=== PATIENT | male | born 1940 | race Caucasian/White ===

== ENCOUNTER 2023-12-05 17:32 | Observation (INO) | payer MEDICARE, OTHER, SELFPAY ==
--- NOTE | ~2023-12-05 | CT_ITS ---
EXAMINATION: CT HEAD WITHOUT CONTRAST CLINICAL INFORMATION: Stroke. COMPARISON: None available. TECHNIQUE: Contiguous axial imaging was performed from the skull base to vertex without intravenous administration of contrast. This CT examination was performed using dose optimization techniques as appropriate, variously including the following: *Automated exposure control. *Adjustment of mA and/or kV according to patient size (this includes techniques or standardized protocols for targeted exams where dose is matched to indication/reason for exam; i.e. extremities or head). *Use of iterative reconstruction technique. DLP: 703 mGy-cm FINDINGS: There is no evidence of acute intracranial hemorrhage or edematous territorial infarction. Loyola-white matter differentiation is preserved. 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 Scattered and partially confluent hypoattenuation in the periventricular and deep white matter are consistent with moderate microangiopathy. Proportional prominence of the ventricles and sulcal spaces without evidence of obstructive hydrocephalus. No abnormal mass effect or midline shift. No extra-axial fluid collections. Calcific atherosclerotic disease of the intracranial internal carotid and vertebral arteries. No hyperdense vessel sign. No acute soft tissue or osseous abnormalities. Mild mucosal thickening of the paranasal sinuses. Mild rightward nasal septal deviation. The mastoid air cells and middle ear cavities are clear. CT/CT head for stroke IMPRESSION: 1. No evidence of acute intracranial hemorrhage or edematous territorial infarction. 2. Moderate underlying microangiopathy and generalized cerebral volume loss. 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 This critical result was discussed with LUZ Shafer at 19:05 on 12/05/2023 and it was ascertained that the content and urgency of the report was understood at the time of direct communication.
--- NOTE | ~2023-12-05 | XR_ITS ---
EXAMINATION: XR CHEST CLINICAL INFORMATION: Altered mental status COMPARISON: None available. TECHNIQUE: Frontal view of the chest was obtained. FINDINGS: Heart is enlarged. No acute vascular congestion. There is elevation of the right hemidiaphragm and cannot exclude diaphragmatic hernia. Fibrotic changes seen in the bilateral lung parenchymal. No focal consolidations or pleural effusions. Coronary stent is present. XR/XR chest 1V IMPRESSION: Cardiomegaly. No acute process.
--- NOTE | ~2023-12-05 | CT_ITS ---
EXAMINATION: CT ANGIOGRAM HEAD CT ANGIOGRAM NECK CLINICAL INFORMATION: Unresponsive. Stroke. COMPARISON: CT head from 12/05/2023. TECHNIQUE: Initial noncontrast program director scouting imaging of the head and neck was performed. Comparison is made with noncontrast head CT from earlier today. Test bolus sequences followed by intravenous administration 70 mL of Omnipaque 350. Helical imaging was performed in the axial plane from the aortic arch to the skull vertex. Delayed postcontrast imaging of the head was also performed. The data was processed at the biomedical engineering technologist's workstation for generation of MIP sequences. Angled MIPs and volume rendered reformatted images were also generated at an offline 3D workstation. Stenoses are assessed in accordance with NASCET criteria unless otherwise indicated. This CT examination was performed using dose optimization techniques as appropriate, variously including the following: *Automated exposure control. *Adjustment of mA and/or kV according to patient size (this includes techniques or standardized protocols for targeted exams where dose is matched to indication/reason for exam; i.e. extremities or head). *Use of iterative reconstruction technique. DLP: 1456 mGy-cm FINDINGS: CT Head: There is no evidence of acute intracranial hemorrhage or edematous territorial infarction. Loyola-white matter differentiation is preserved. 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 Scattered and partially confluent hypoattenuation in the periventricular and deep white matter are consistent with moderate microangiopathy. Proportional prominence of the ventricles and sulcal spaces without evidence of obstructive hydrocephalus. No abnormal mass effect or midline shift. No extra-axial fluid collections. Calcific atherosclerotic disease of the intracranial internal carotid and vertebral arteries. No hyperdense vessel sign. No abnormal intracranial enhancement. No acute soft tissue or osseous abnormalities. Mild mucosal thickening of the paranasal sinuses. Moderate rightward nasal septal deviation. The mastoid air cells and middle ear cavities are clear. CT Neck: The thyroid gland and remaining cervical soft tissues are within normal limits. Straightening of the normal cervical lordosis. Mild degenerative anterolisthesis of C2 on C3. Advanced degenerative arthropathy of the atlantodental articulation. Advanced degenerative disc disease from C2-T1. Facet and uncovertebral joint arthropathy leads to osseous encroachment on the neural foramina from C2-T2. CT Upper Chest: Mild centrilobular emphysema. The visualized lung apices and upper mediastinum are without additional significant abnormalities. Neck CTA: Aortic Arch: Normal contour and caliber with mild calcific atherosclerotic disease. Classic 3 vessel branching pattern of the aortic arch. Great Vessel Origins: No significant stenosis of the branch origins. Right Common Carotid Artery: No focal stenosis or occlusion. Cervical Right Internal Carotid Artery: Calcific atherosclerotic disease of the carotid bulb and proximal internal carotid artery causing less than 50% stenosis. Left Common Carotid Artery: No focal stenosis or occlusion. Cervical Left Internal Carotid Artery: Mixed fibrofatty and calcific atherosclerotic disease of the carotid bulb and proximal internal carotid artery causing 60% stenosis. Cervical Right Vertebral Artery: Dominant. Atherosclerotic disease causes moderate stenosis of the origin. No additional focal stenosis or occlusion. Cervical Left Vertebral Artery: Atherosclerotic disease causes mild stenosis at the origin. No additional focal stenosis or occlusion. Brain CTA: Intracranial Internal Carotid Arteries: Calcific atherosclerotic disease of the intracranial internal carotid arteries without occlusion or flow-limiting stenosis. Right Anterior Cerebral Artery: Normal A1 segment. Normal opacification of the distal DAVINA segments. Left Anterior Cerebral Artery: Normal A1 segment. Normal opacification of the distal DAVINA segments. Anterior Communicating Artery: Normal. Right Middle Cerebral Artery: Normal M1 segment of the MCA without focal stenosis or occlusion. Normal arborization of the distal segments. Left Middle Cerebral Artery: Normal M1 segment of the MCA without focal stenosis or occlusion. Normal arborization of the distal segments. Right Vertebral Artery: Normal V4 segment. Extradural origin of the posterior inferior cerebellar artery. Normal opacification of the proximal segments of the posterior inferior cerebellar artery. Left Vertebral Artery: The V4 segment largely terminates as the posterior inferior cerebellar artery. Basilar Artery: Normal without focal stenosis or occlusion. Normal appearance of the proximal superior cerebellar arteries. Right Posterior Cerebral Artery: Normal P1 segment. Normal opacification of the distal NET FINISHER segments. Left Posterior Cerebral Artery: Normal P1 segment. Normal opacification of the distal NET FINISHER segments. Normal opacification of the superior sagittal, straight, transverse, and sigmoid sinuses. CT/CT angio head neck stroke IMPRESSION: 1. No evidence of acute intracranial hemorrhage or edematous territorial infarction. Moderate underlying microangiopathy and generalized cerebral volume loss. 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 2. CTA of the head and neck without proximal occlusion. 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 No additional flow-limiting stenoses. 3. Advanced multilevel degenerative spondyloarthropathy of the cervical spine. This critical result was discussed with LUZ Shafer at 19:05 on 12/05/2023 and it was ascertained that the content and urgency of the report was understood at the time of direct communication.
[2023-12-05 17:40] VITALS: BP 140/80; PULSE 70; O2SAT 98
[2023-12-05 17:59] VITALS: BP 150/60; PULSE 56; RESP 16; O2SAT 94; BMI 19.8
[2023-12-05 18:10] LABS: Glucose, Whole Blood 114 mg/dL (60-115)
[2023-12-05 18:17] LABS: MANUAL DIFF FLAG NO
--- NOTE | 2023-12-05 18:25 | ECG_ITS ---
Test Reason : STROKE PROTOCOL Blood Pressure : / mmHG Vent. Rate : 085 BPM Atrial Rate : 085 BPM P-R Int : 160 ms QRS Dur : 096 ms QT Int : 398 ms P-R-T Axes : -13 -07 065 degrees QTc Int : 473 ms Sinus rhythm with occasional Premature ventricular complexes Minimal voltage criteria for LVH, may be normal variant ( Sokolow-Ray ) Nonspecific ST and T wave abnormality Prolonged QT Abnormal ECG No previous ECGs available Referred By: Minoo Ziegler Electronically Signed By:LOLA GUERRA
[2023-12-05 18:27] LABS: Basophils Percent Auto 0.7 % (0-2); Eosinophils Percent Auto 0.5 % (0-4); Hemoglobin 14.4 g/dl (14.0-18.0); Imm Gran Abs Auto 0.07 X10*3/uL (0.00-0.03); Imm Gran Pct Auto 1.3 % (0.0-0.4); Lymphocytes Absolute Auto 0.7 X10*3/uL (1.2-4.9); Lymphocytes Percent Auto 12.8 % (20-40); Mean Corpuscular Hemoglobin 33.5 pg (27.0-33.0); Mean Platelet Volume 9.7 fL (9.4-12.4); Monocytes Absolute Auto 0.6 X10*3/uL (0.1-1.2); Monocytes Percent Auto 11.5 % (2-11); Neutrophils Percent Auto 73.2 % (45-73); Platelet Count 198 X10*3/uL (160-400); Red Cell Distribution Width 12.9 % (11.0-16.0); White Blood Count 5.5 X10*3/uL (4.8-10.8)
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
[2023-12-05 18:46] LABS: Appearance Urine Clear; Color Urine Yellow; Glucose Urine UA Negative (Negative); Leukocyte Esterase Urine Trace (Negative); Nitrite Urine Positive (Negative); PH 6.5 (5.0-9.0); Specific Gravity - Urine 1.015 (1.005-1.025); UMIC TRIGGER UACC YES; Urine Blood Negative (Negative); Urine Ketones Trace mg/dL (Negative); Urine Protein 30 (1+) mg/dL (Neg-Trace)
[2023-12-05 18:47] LABS: Anion Gap 15 (12-20); Blood Urea Nitrogen 25 mg/dL (9-16); Carbon Dioxide 25 mmol/L (22-29); Chloride 101 mmol/L (96-108); Creatinine Clr Calc Pharmacy 42.4; Estimated Glomerular Filt Rate > 60; Ethanol < 10 mg/dL; Glucose Random 120 mg/dL (60-115); Sodium 137 mmol/L (135-145)
[2023-12-05 18:49] LABS: Salicylate < 5.0 mg/dL (15-30)
[2023-12-05 18:54] LABS: Amphetamine Screen Urine Not Detected (Not Detect); Barbiturates, Urine Not Detected (Not Detect); Benzodiazepines Screen Urine Not Detected (Not Detect); Buprenorphine Scr Not Detected (Not Detect); Cannabinoid Screen Urine Not Detected (Not Detect); Cocaine Screen Urine Not Detected (Not Detect); Fentanyl, urine Not Detected (Not Detect); Methadone Screen, Urine Not Detected (Not Detect); Opiate Screen Urine Not Detected (Not Detect); Oxycodone Screen Urine Not Detected (Not Detect); Phencyclidine Screen Urine Not Detected (Not Detect)
[2023-12-05 18:57] LABS: Bacteria Urine None Seen (None Seen); Hyaline Casts Urine 0-2 /LPF (0-2); RBC Urine 0-2 /HPF (0-2); Squamous Epithelial Cell Urine 0-2 /HPF (0-2); UACC Culture Trigger YES
[2023-12-05] MEDS: iohexoL 350 MG/ML 100 ML INFUS..BTL IV (18:57)
[2023-12-05] MEDS: LORazepam 2 MG/ML VIAL 1 MG IVPUSH (19:37)
[2023-12-05 19:41] LABS: MANUAL DIFF FLAG NO
[2023-12-05 19:45] LABS: Basophils Percent Auto 0.4 % (0-2); Eosinophils Percent Auto 0.8 % (0-4); Hematocrit 43.1 % (42.0-52.0); Hemoglobin 15.6 g/dl (14.0-18.0); Imm Gran Abs Auto 0.03 X10*3/uL (0.00-0.03); Imm Gran Pct Auto 0.6 % (0.0-0.4); Lymphocytes Absolute Auto 0.6 X10*3/uL (1.2-4.9); Lymphocytes Percent Auto 12.7 % (20-40); Mean Corpuscular HGB Conc 36.2 g/dl (31.0-36.0); Mean Corpuscular Hemoglobin 33.8 pg (27.0-33.0); Mean Corpuscular Volume 93.3 fL (80.0-98.0); Monocytes Absolute Auto 0.5 X10*3/uL (0.1-1.2); Monocytes Percent Auto 10.3 % (2-11); Neutrophils Absolute Auto 3.8 x10*3/uL (2.0-8.3); Neutrophils Percent Auto 75.2 % (45-73); Platelet Count 216 X10*3/uL (160-400); Red Blood Count 4.62 X10*6/uL (4.60-5.80)
[2023-12-05 19:55] LABS: INTERNATIONAL NORM RATIO 0.9 (0.9-1.1); Prothrombin Time 10.7 SEC (11.1-13.3)
[2023-12-05 19:58] LABS: Partial Thromboplastin Time 29.3 SEC (26.0-36.8)
[2023-12-05 19:59] LABS: Acetaminophen LAB < 3 mcg/mL (<30); Anion Gap 16 (12-20); Blood Urea Nitrogen 24 mg/dL (9-16); Calcium 9.3 mg/dL (8.4-10.2); Carbon Dioxide 26 mmol/L (22-29); Chloride 98 mmol/L (96-108); Cholesterol 141 mg/dL (<200); Creatinine Clr Calc Pharmacy 42.4; Estimated Glomerular Filt Rate > 60; Ethanol < 10 mg/dL; Glucose Random 118 mg/dL (60-115); HDL Cholesterol 70 mg/dL (>40); LDL Cholesterol Calculated 62 mg/dL (<100); Potassium 4.2 mmol/L (3.3-5.1); Sodium 136 mmol/L (135-145); Triglycerides 48 mg/dL (<150)
[2023-12-05 20:00] VITALS: BP 116/68; PULSE 56; RESP 15; TEMP 36.8; O2SAT 98
[2023-12-05 20:01] LABS: Stroke Lab Use COMPLETE
[2023-12-05 20:06] LABS: Ammonia 23 umol/L (13-55)
--- NOTE | 2023-12-05 20:44 | PM.IMHP ---
History of Present Illness Date of Service: 12/05/23 Chief Complaint: AMS This is a 83-year-old male with pertinent history of mood disorder, seizure disorder, hypertension, mixed hyperlipidemia, BPH who was sent to the emergency department from [facility] for evaluation of altered mentation. Patient is at [facility] for the last 2 days for suicidal and homicidal ideation. Patient was not responding to verbal stimulus and not answering questions and hence was sent to the ER. As per ER provider, patient was drowsy and unable to provide any information. Patient was completely altered and not following any commands. Patient was sent to CT scan and after returning had a questionable episode of seizure in the ER witnessed by ER provider. Was given IV Ativan for the seizure episode. At the time of my evaluation, patient does not know why he is at the hospital. He is oriented x2 and is able to answer questions and follow simple commands. No chest discomfort, palpitations, shortness of breath, abdominal pain. Review of Systems Review of Systems: Yes Unobtainable due to mental status [facility] Medical History BPH (benign prostatic hyperplasia) Mixed hyperlipidemia Hypertension Mood disorder Seizure disorder Pertinent family history: Not able to obtain Social History Advance Directives: No Advance Directives Information Provided: No Meds Allergies Allergy/AdvReac Type Severity Reaction Status Date / Time Unable to Assess Allergy Verified 12/05/23 17:59 Home Medications ?Medication ?Instructions ?Recorded ?Confirmed ?Last Taken ?Type amlodipine 10 mg tablet 10 mg PO DAILY 12/05/23 12/05/23 Unknown History aspirin 81 mg tablet,delayed 81 mg PO DAILY 12/05/23 12/05/23 Unknown History release atorvastatin 20 mg tablet 20 mg PO DAILY 12/05/23 12/05/23 Unknown History clopidogrel 75 mg tablet 75 mg PO DAILY 12/05/23 12/05/23 Unknown History docusate sodium 100 mg capsule 100 mg PO BEDTIME 12/05/23 12/05/23 Unknown History (Colace) escitalopram oxalate 5 mg tablet 5 mg PO DAILY 12/05/23 12/05/23 Unknown History (Lexapro) finasteride 5 mg tablet 5 mg PO DAILY 12/05/23 12/05/23 Unknown History levetiracetam 750 mg tablet 750 mg PO BID 12/05/23 12/05/23 Unknown History metoprolol succinate 25 mg 25 mg PO DAILY 12/05/23 12/05/23 Unknown History tablet,extended release 24 hr mirtazapine 15 mg tablet (Remeron) 7.5 mg PO BEDTIME 12/05/23 12/05/23 Unknown History polyethylene glycol 3350 17 17 g PO BEDTIME 12/05/23 12/05/23 Unknown History gram/dose oral powder (Miralax) tamsulosin 0.4 mg capsule 0.4 mg PO DAILY 12/05/23 12/05/23 Unknown History venlafaxine 37.5 mg tablet 37.5 mg PO DAILY 12/05/23 12/05/23 Unknown History Physical Exam Vital Signs and Narrative: Vital Signs: Last Vital Signs Temp 98.3 F 12/05/23 20:00 Pulse 56 12/05/23 20:00 Resp 15 12/05/23 20:00 BP 116/68 12/05/23 20:00 Pulse Ox 98 12/05/23 20:00 O2 Del Method Room Air 12/05/23 20:00 BMI result Body Mass Index 19.8 Middle-aged male lying in bed in no distress Neck supple, no JVD Regular rate and rhythm, S1-S2 heard Regular breath sounds bilaterally, no wheezing or crackles appreciated Abdomen soft nontender, no guarding, no rigidity Patient is awake, alert and oriented x2, answering questions and follows simple commands Psych: Lethargic No pedal edema Results Labs 12/05/23 19:35 12/05/23 19:35 Labs: Laboratory Results - last 24 hr 12/05/23 12/05/23 12/05/23 18:07 18:13 18:35 MCV 93.0 MCH 33.5 H MCHC 36.0 RDW 12.9 Plt Count 198 MPV 9.7 Immature Gran % (Auto) 1.3 H Neut % (Auto) 73.2 H Lymph % (Auto) 12.8 L [place] % (Auto) 11.5 H Eos % (Auto) 0.5 Baso % (Auto) 0.7 Lymph # (Auto) 0.7 L [place] # (Auto) 0.6 Eos # (Auto) 0.0 Baso # (Auto) 0.0 Abs Immat Gran (auto) 0.07 H Absolute Neuts (auto) 4.0 Absolute Nucleated RBC 0.000 Nucleated RBC % (auto) 0.0 PT INR APTT Anion Gap 15 Estim Creat Clear Calc 42.4 Estimated GFR > 60 POC Glucose 114 Random Glucose 120 H Lactic Acid Calcium 9.0 Ammonia Troponin I High Sens Triglycerides Cholesterol LDL Cholesterol, Calc HDL Cholesterol Urine Color Yellow Urine Appearance Clear Urine pH 6.5 Ur Specific [place] 1.015 Urine Protein 30 (1+) H Urine Glucose (UA) Negative Urine Ketones Trace Urine Blood Negative Urine Nitrite Positive H Ur Leukocyte Esterase Trace H Urine RBC 0-2 Urine WBC 6-10 H Ur Squamous Epith Cells 0-2 Urine Bacteria None Seen Hyaline Casts 0-2 Salicylates < 5.0 L Urine Opiates Screen Not Detected Ur Buprenorphine Scrn Not Detected Ur Oxycodone Screen Not Detected Urine Methadone Screen Not Detected Urine Fentanyl Screen Not Detected Acetaminophen Ur Barbiturates Screen Not Detected Ur Phencyclidine Scrn Not Detected Ur Amphetamines Screen Not Detected U Benzodiazepines Scrn Not Detected Urine Cocaine Screen Not Detected U Marijuana (THC) Screen Not Detected Ethyl Alcohol < 10 12/05/23 12/05/23 19:35 19:54 MCV 93.3 MCH 33.8 H MCHC 36.2 H RDW 13.0 Plt Count 216 MPV 10.0 Immature Gran % (Auto) 0.6 H Neut % (Auto) 75.2 H Lymph % (Auto) 12.7 L [place] % (Auto) 10.3 Eos % (Auto) 0.8 Baso % (Auto) 0.4 Lymph # (Auto) 0.6 L [place] # (Auto) 0.5 Eos # (Auto) 0.0 Baso # (Auto) 0.0 Abs Immat Gran (auto) 0.03 Absolute Neuts (auto) 3.8 Absolute Nucleated RBC 0.000 Nucleated RBC % (auto) 0.0 PT 10.7 L INR 0.9 APTT 29.3 Anion Gap 16 Estim Creat Clear Calc 42.4 Estimated GFR > 60 POC Glucose Random Glucose 118 H Lactic Acid 1.0 Calcium 9.3 Ammonia 23 Troponin I High Sens 17.0 Triglycerides 48 Cholesterol 141 LDL Cholesterol, Calc 62 HDL Cholesterol 70 Urine Color Urine Appearance Urine pH Ur Specific [place] Urine Protein Urine Glucose (UA) Urine Ketones Urine Blood Urine Nitrite Ur Leukocyte Esterase Urine RBC Urine WBC Ur Squamous Epith Cells Urine Bacteria Hyaline Casts Salicylates Urine Opiates Screen Ur Buprenorphine Scrn Ur Oxycodone Screen Urine Methadone Screen Urine Fentanyl Screen Acetaminophen < 3 Ur Barbiturates Screen Ur Phencyclidine Scrn Ur Amphetamines Screen U Benzodiazepines Scrn Urine Cocaine Screen U Marijuana (THC) Screen Ethyl Alcohol < 10 Imaging Radiologist's Impressions: Impressions Head CT 12/05/23 18:47 IMPRESSION: 1. No evidence of acute intracranial hemorrhage or edematous territorial infarction. 2. Moderate underlying microangiopathy and generalized cerebral volume loss. 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 This critical result was discussed with LUZ Shafer at 19:05 on 12/05/2023 and it was ascertained that the content and urgency of the report was understood at the time of direct communication. Head/Neck CTA 12/05/23 19:23 IMPRESSION: 1. No evidence of acute intracranial hemorrhage or edematous territorial infarction. Moderate underlying microangiopathy and generalized cerebral volume loss. 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 2. CTA of the head and neck without proximal occlusion. 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 No additional flow-limiting stenoses. 3. Advanced multilevel degenerative spondyloarthropathy of the cervical spine. This critical result was discussed with LUZ Shafer at 19:05 on 12/05/2023 and it was ascertained that the content and urgency of the report was understood at the time of direct communication. Assessment and Plan (1) Acute encephalopathy: Status: Acute Plan This is a 83-year-old male with pertinent history of mood disorder, seizure disorder, hypertension, mixed hyperlipidemia, BPH who was sent to the emergency department from [facility] for evaluation of altered mentation. #. Acute encephalopathy: Psych versus breakthrough seizure. Had a ?witnessed episode of seizure in the ER as per ER provider. Obtaining EEG and consulted Neurology #. SI/HI in a patient with mood disorder: Consulting psych. Continue home mood stabilizers. Consulted sitter #. Seizure disorder: Continue home antiepileptics #. Hypertension: Continue home mood stabilizers #. Mixed hyperlipidemia: On statin #. BPH: On finasteride and Flomax Med rec pending DVT prophylaxis: Lovenox Full code Quality Stroke Does the patient have a stroke diagnosis?: No VTE Prior VTE?: No VTE Risk Level:: Medical - moderate - high VTE Device Contraindication: Treatment Not Indicated VTE Drug Contraindication: N/A - Med Ordered
[2023-12-05] MEDS: Enoxaparin Sodium 40 MG/0.4 ML SYRINGE SUBCUT (21:21)
--- NOTE | 2023-12-05 21:34 | PHA.MEDREC ---
Addendum entered by Pradeep Nash [facility] 12/06/23 14:18: Reviewed by [facility] Addendum entered by Bart Staples 12/06/23 13:54: Received medication list from a facility for patient. There were some PRN medications I noticed were not on the list, I added Acetaminophen 325mg 2 tabs Q6H PRN Pain, Haloperidol 5mg tab one Q6H PRN Psychosis, Lactulose 20gm daily PRN Constipation, Lorazepam 2mg injection Q5M PRN Seizure Activity and Milk of Magnesia 30ml daily PRN Constipation. Addendum entered by Juan Corona 12/05/23 21:39: Med rec verified Original Note: Pharmacy Consult ? Medication Reconciliation Pharmacy has completed the medication reconciliation. Spoke to Katie from [place] [phone] to get list of medication. Utilized list given over the phone and claims to confirm med list.
[2023-12-05 22:00] VITALS: BP 109/60; PULSE 55; RESP 19; O2SAT 92
[2023-12-05 22:30] VITALS: BP 110/65; PULSE 52; RESP 17; TEMP 36.7; O2SAT 97
[2023-12-06] VITALS (7 sets, daily range): BP systolic 102–165; BP diastolic 55–88; PULSE 50–66; RESP 12–20; TEMP 36.3–37.4; O2SAT 93–99; BMI 19.1
--- NOTE | 2023-12-06 | EEG_ITS ---
FINDINGS: The waking background activity consists of a posterior 7 to 8 hertz slow alpha frequency intermixed anteriorly with low voltage fast frequencies. Photic stimulation is without activation. Hyperventilation was omitted. IMPRESSION: This EEG is considered minimally abnormal due to mild slowing of the background activity intermittently, but could correlate with a mild encephalopathic process. No focal abnormalities or seizure discharges are seen. MD JOSH Muñoz/LEIF / [id number]
[2023-12-06 05:14] LABS: MANUAL DIFF FLAG NO
[2023-12-06 05:16] LABS: Basophils Percent Auto 0.5 % (0-2); Eosinophils Absolute Auto 0.1 X10*3/uL (0.0-0.4); Eosinophils Percent Auto 1.4 % (0-4); Hematocrit 34.6 % (42.0-52.0); Hemoglobin 12.3 g/dl (14.0-18.0); Imm Gran Abs Auto 0.01 X10*3/uL (0.00-0.03); Imm Gran Pct Auto 0.2 % (0.0-0.4); Lymphocytes Absolute Auto 0.9 X10*3/uL (1.2-4.9); Mean Corpuscular HGB Conc 35.5 g/dl (31.0-36.0); Mean Corpuscular Hemoglobin 33.2 pg (27.0-33.0); Mean Corpuscular Volume 93.3 fL (80.0-98.0); Mean Platelet Volume 10.2 fL (9.4-12.4); Monocytes Absolute Auto 0.4 X10*3/uL (0.1-1.2); Monocytes Percent Auto 9.6 % (2-11); Neutrophils Absolute Auto 2.8 x10*3/uL (2.0-8.3); Neutrophils Percent Auto 66.3 % (45-73); Platelet Count 181 X10*3/uL (160-400); Red Blood Count 3.71 X10*6/uL (4.60-5.80); Red Cell Distribution Width 13.2 % (11.0-16.0); White Blood Count 4.3 X10*3/uL (4.8-10.8)
[2023-12-06 05:35] LABS: Anion Gap 11 (12-20); Blood Urea Nitrogen 25 mg/dL (9-16); Calcium 8.4 mg/dL (8.4-10.2); Carbon Dioxide 27 mmol/L (22-29); Chloride 103 mmol/L (96-108); Creatinine Clr Calc Pharmacy 40.9; Estimated Glomerular Filt Rate > 60; Glucose Random 173 mg/dL (60-115); Potassium 3.5 mmol/L (3.3-5.1); Sodium 137 mmol/L (135-145)
[2023-12-06] MEDS: 0.9 % Sodium Chloride Flush 3 ML SYRINGE IVFLUSH ×3 (08:10→20:29)
--- NOTE | 2023-12-06 08:38 | PC.NURSE ---
Pt passed swallow screen. Tolerated ice water, tolerated pudding without any difficulty. Gino ESCOBAR made aware.
[2023-12-06] MEDS: levETIRAcetam 250 MG TABLET 750 MG PO (09:13)
[2023-12-06] MEDS: Milk of Magnesia 30 ML ORAL.SUSP PO (09:19)
--- NOTE | 2023-12-06 09:27 | PC.NURSE ---
Pt reports that since he got out of the snf 6 months ago he has been very overwhelmed at home and depressed. Reports that no one wants to help him with his depression or give him meds to feel better. Apparently 1 week ago he tried to kill himself and (didn't go into detail about how). is now scared of him and doesn't want him to come home. Stated I want to cut my throat, I know I'm on a blood thinner and I would bleed very easy. 1:1 sitter remains at bedside.
--- NOTE | 2023-12-06 11:21 | PM.PSYCN ---
History of Present Illness Date of Service: 12/06/23 Chief Complaint: AMS Reason for Consult: SI,HI Requesting physician: Jamia Muniz Sources of Information: patient interviewed, chart reviewed and crisis/core team assessment reviewed HPI Narrative: 83 yo male, hx of HTN, HLD, BPH, Seizure Disorder, Mood Dysregulation transfer to ER from [facility] for AMS after a three day admission. Pt was reportedly obtunded.Reported Admission to [facility] with SI,HI and an attempt to kill his . Metabolic encephalopathy suspected along with possible seizure activity, dystonia, psychogenic etiologies UTI found and being treated. Pt responded to Lorazepam. Met with pt and one to one special in Bed 14. Pt reports he was at home and passed out, with a stroke or seizure type sx. States he tried to walk, fell, hit his head and called 911 to take him to [facility]. [facility] was unable to admit him and sent him to [facility]. I was put there in a room that hold addicts for a week and received no help. Reports stressors as a lot of stuff has piled up. 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 Teaching my the ins and outs of our finances is a lot. It runs well when I do it but not so when I cannot. Reports, as a result a decrease in appetite, weight loss of approx 10 lbs and interrupted sleep. Asks when we can get his diet on track to help him improve. Past Psychiatric History: IP: Denies OP: Denies Medical Evaluation Reviewed: Yes as noted in diagnostic section Personal & Social History: Lives in [place], [place] with . One daughter, living in [facility] [place] he reports Review of Systems Review of Systems I am feeling better today I would like to get my diet on track [facility] Medical History BPH (benign prostatic hyperplasia) Mixed hyperlipidemia Hypertension Mood disorder Seizure disorder Diagnostics Vital Signs (24Hr): Vital Signs - 24 hr 12/05/23 17:59 12/05/23 20:00 12/05/23 22:00 Temperature 98.3 F Pulse Rate 56 56 55 Respiratory Rate 16 15 19 Blood Pressure 150/60 H 116/68 109/60 Pulse Oximetry 94 98 92 Oxygen Delivery Method Room Air Room Air 12/05/23 22:30 12/06/23 00:01 12/06/23 04:58 Temperature 98.1 F 98.7 F 98.0 F Pulse Rate 52 56 50 Respiratory Rate 17 18 12 Blood Pressure 110/65 133/69 133/64 Pulse Oximetry 97 94 95 Oxygen Delivery Method Room Air Room Air Room Air 12/06/23 07:29 12/06/23 09:15 Temperature 97.9 F Pulse Rate 53 55 Respiratory Rate 18 Blood Pressure 133/69 Pulse Oximetry 93 Oxygen Delivery Method Room Air BMI result Body Mass Index 19.8 Labs 12/06/23 04:11 12/06/23 04:11 Labs: Laboratory Results - last 48 hr 12/05/23 12/05/23 12/05/23 18:07 18:13 18:35 WBC 5.5 RBC 4.30 L Hgb 14.4 Hct 40.0 L MCV 93.0 MCH 33.5 H MCHC 36.0 RDW 12.9 Plt Count 198 MPV 9.7 Immature Gran % (Auto) 1.3 H Neut % (Auto) 73.2 H Lymph % (Auto) 12.8 L [place] % (Auto) 11.5 H Eos % (Auto) 0.5 Baso % (Auto) 0.7 Lymph # (Auto) 0.7 L [place] # (Auto) 0.6 Eos # (Auto) 0.0 Baso # (Auto) 0.0 Abs Immat Gran (auto) 0.07 H Absolute Neuts (auto) 4.0 Absolute Nucleated RBC 0.000 Nucleated RBC % (auto) 0.0 PT INR APTT Sodium 137 Potassium 4.0 Chloride 101 Carbon Dioxide 25 Anion Gap 15 BUN 25 H Creatinine 1.06 Estim Creat Clear Calc 42.4 Estimated GFR > 60 POC Glucose 114 Random Glucose 120 H Lactic Acid Calcium 9.0 Ammonia Troponin I High Sens Triglycerides Cholesterol LDL Cholesterol, Calc HDL Cholesterol Urine Color Yellow Urine Appearance Clear Urine pH 6.5 Ur Specific [place] 1.015 Urine Protein 30 (1+) H Urine Glucose (UA) Negative Urine Ketones Trace Urine Blood Negative Urine Nitrite Positive H Ur Leukocyte Esterase Trace H Urine RBC 0-2 Urine WBC 6-10 H Ur Squamous Epith Cells 0-2 Urine Bacteria None Seen Hyaline Casts 0-2 Salicylates < 5.0 L Urine Opiates Screen Not Detected Ur Buprenorphine Scrn Not Detected Ur Oxycodone Screen Not Detected Urine Methadone Screen Not Detected Urine Fentanyl Screen Not Detected Acetaminophen Ur Barbiturates Screen Not Detected Ur Phencyclidine Scrn Not Detected Ur Amphetamines Screen Not Detected U Benzodiazepines Scrn Not Detected Urine Cocaine Screen Not Detected U Marijuana (THC) Screen Not Detected Ethyl Alcohol < 10 12/05/23 12/05/23 12/06/23 19:35 19:54 04:11 WBC 5.0 4.3 L RBC 4.62 3.71 L Hgb 15.6 12.3 L D Hct 43.1 34.6 L MCV 93.3 93.3 MCH 33.8 H 33.2 H MCHC 36.2 H 35.5 RDW 13.0 13.2 Plt Count 216 181 MPV 10.0 10.2 Immature Gran % (Auto) 0.6 H 0.2 Neut % (Auto) 75.2 H 66.3 Lymph % (Auto) 12.7 L 22.0 Madison % (Auto) 10.3 9.6 Eos % (Auto) 0.8 1.4 Baso % (Auto) 0.4 0.5 Lymph # (Auto) 0.6 L 0.9 L Madison # (Auto) 0.5 0.4 Eos # (Auto) 0.0 0.1 Baso # (Auto) 0.0 0.0 Abs Immat Gran (auto) 0.03 0.01 Absolute Neuts (auto) 3.8 2.8 Absolute Nucleated RBC 0.000 0.000 Nucleated RBC % (auto) 0.0 0.0 PT 10.7 L INR 0.9 APTT 29.3 Sodium 136 137 Potassium 4.2 3.5 Chloride 98 103 Carbon Dioxide 26 27 Anion Gap 16 11 L BUN 24 H 25 H Creatinine 1.06 1.10 Estim Creat Clear Calc 42.4 40.9 Estimated GFR > 60 > 60 POC Glucose Random Glucose 118 H 173 H Lactic Acid 1.0 Calcium 9.3 8.4 D Ammonia 23 Troponin I High Sens 17.0 Triglycerides 48 Cholesterol 141 LDL Cholesterol, Calc 62 HDL Cholesterol 70 Urine Color Urine Appearance Urine pH Ur Specific [place] Urine Protein Urine Glucose (UA) Urine Ketones Urine Blood Urine Nitrite Ur Leukocyte Esterase Urine RBC Urine WBC Ur Squamous Epith Cells Urine Bacteria Hyaline Casts Salicylates Urine Opiates Screen Ur Buprenorphine Scrn Ur Oxycodone Screen Urine Methadone Screen Urine Fentanyl Screen Acetaminophen < 3 Ur Barbiturates Screen Ur Phencyclidine Scrn Ur Amphetamines Screen U Benzodiazepines Scrn Urine Cocaine Screen U Marijuana (THC) Screen Ethyl Alcohol < 10 Imaging Radiology Impressions: ITS Impressions Head CT 12/05/23 18:47 IMPRESSION: 1. No evidence of acute intracranial hemorrhage or edematous territorial infarction. 2. Moderate underlying microangiopathy and generalized cerebral volume loss. 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 This critical result was discussed with LUZ Shafer at 19:05 on 12/05/2023 and it was ascertained that the content and urgency of the report was understood at the time of direct communication. Head/Neck CTA 12/05/23 19:23 IMPRESSION: 1. No evidence of acute intracranial hemorrhage or edematous territorial infarction. Moderate underlying microangiopathy and generalized cerebral volume loss. 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 2. CTA of the head and neck without proximal occlusion. 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 No additional flow-limiting stenoses. 3. Advanced multilevel degenerative spondyloarthropathy of the cervical spine. This critical result was discussed with LUZ Shafer at 19:05 on 12/05/2023 and it was ascertained that the content and urgency of the report was understood at the time of direct communication. Chest X-Ray 12/05/23 20:35 IMPRESSION: Cardiomegaly. No acute process. Mental Status Exam Mental Status Exam Patient Appearance: Fatigued Patient Orientation: Person and Situation Level of Consciousness: Alert Patient Behavior: Talkative Mood Description: Calm Affect Description: Calm Patient Cognition Impaired: Yes Ability to Follow Directions: Fair Speech Pattern: Spontaneous Speech Memory Description: Episodic Impaired Hallucinations: None Delusions: Not Present Thought Process: Rumination Thought Content: positive for Perseveration, positive for Suicidal Ideation (identifies being overwhelmed with financial responsibility and difficulty understanding) and positive for Homicidal Ideation (denies) Depressive Symptoms: Thoughts of /Suicide and Difficulty Concentrating Judgement: Poor Medications Medications Current Medications Acetaminophen (Acetaminophen 325 Mg Tablet) 650 mg PO Q6H PRN PRN Reason: Pain, Mild (Pain Scale 1-3), fever or headache Calcium Carbonate (Calcium Carbonate 750 Mg Tab.Chew) 750 mg PO Q4H PRN PRN Reason: Heartburn Enoxaparin Sodium (Enoxaparin Sodium 40 Mg/0.4 Ml Syringe) 40 mg SUBCUT Q24H [facility] Last Admin: 12/05/23 21:21 Dose: 40 mg Levetiracetam (Levetiracetam 250 Mg Tablet) 750 mg PO BID [facility] Last Admin: 12/06/23 09:13 Dose: 750 mg Magnesium Hydroxide (Milk Of Magnesia 30 Ml Oral.Susp) 30 ml PO DAILY PRN PRN Reason: Constipation Last Admin: 12/06/23 09:19 Dose: 30 ml Melatonin (Melatonin 3 Mg Tablet) 6 mg PO BEDTIME PRN PRN Reason: Insomnia Metoprolol Succinate (Metoprolol Succinate Er 25 Mg Tab.Er.24h) 25 mg PO DAILY [facility]; Protocol Last Admin: 12/06/23 09:15 Dose: Not Given Ondansetron HCl (Ondansetron Hcl 4 Mg/2 Ml Vial) 4 mg IVPUSH Q8H PRN PRN Reason: Nausea and Vomiting Sodium Chloride (0.9 % Sodium Chloride Flush 3 Ml Syringe) 3 ml IVFLUSH QSHIFT [facility] Last Admin: 12/06/23 08:10 Dose: 3 ml Allergies Allergies Allergy/AdvReac Type Severity Reaction Status Date / Time Unable to Assess Allergy Verified 12/05/23 17:59 Assessment & Plan Assessment & Plan (1) Seizure disorder: Status: Acute Code(s): G40.909 - Epilepsy, unspecified, not intractable, without status epilepticus (2) Acute metabolic encephalopathy: Status: Acute Code(s): G93.41 - Metabolic encephalopathy (3) Mood disorder: Status: Acute Code(s): F39 - Unspecified mood [affective] disorder Plan 83 yo male, history of HTN, HLD, BPH, Seizure Disorder, Mood Disorder, transfer from [place] after a three day admission with sx of AMS, reportedly obtunded. Prior to admit, pt was reportedly suicidal, homicidal and attempted to kill his . Team reports plan is to admit medically for further eval of metabolic encephalopathy, treat UTI, evaluate seizure disorder. Pt reporting sx of depression-poor appetite, weight loss, poor sleep, stress with finances and concentration and continues to report SI as a result. He denies HI plan or intent. Plan B12,Folate, TSH Ativan 0.5 mg q6hprn sx of anxiety Nutritional consult Remeron 3.75 mg HS suggested when encephalopathy eval is completed. Suggest geriatric psychiatry admission when medically cleared for further assessment of cognitive/mood symptoms. Total time managing care of this patient today ____ minutes. Informed Consent: further education needed
--- NOTE | 2023-12-06 12:37 | PM.NEUROCN ---
History of Present Illness Data of Consult Service Date: 12/06/23 Primary Care Provider: Unknown Physician HPI Reason for consult: Change in mental status 83 years old man who probably suffer some multifactorial, degenerative +vascular, dementia resulting in cognitive and behavioral issues and may also be seizure disorder of complex partial type. He was brought to hospital former residential facility with complain of unresponsiveness and apparently was not responsive in emergency room until he was treated with lorazepam. Review of Systems Review of Systems: No recent cold or flu-like illness or head injury or trauma [facility] Past Medical History Medical History BPH (benign prostatic hyperplasia) Mixed hyperlipidemia Hypertension Mood disorder Seizure disorder Social History Social History Unable to assess alcohol history related to: Unknown Patient Tobacco Use Status: Never used Tobacco Smoked in Last 30 Days: No Use of substances other than those prescribed or required for medical reasons: Unknown Advance Directives: No Advance Directives Information Provided: No Do you have a plan to hurt others: Vague Nutrition Risks: Poor intake 0-25% >4 days Meds Allergies Allergy/AdvReac Type Severity Reaction Status Date / Time Unable to Assess Allergy Verified 12/05/23 17:59 Active Medications: Current Medications Acetaminophen (Acetaminophen 325 Mg Tablet) 650 mg PO Q6H PRN PRN Reason: Pain, Mild (Pain Scale 1-3), fever or headache Amlodipine Besylate (Amlodipine Besylate 10 Mg Tablet) 10 mg PO DAILY [facility]; Protocol Aspirin (Aspirin Enteric Coated 81 Mg Tablet.Dr) 81 mg PO DAILY [facility] Atorvastatin Calcium (Atorvastatin Calcium 20 Mg Tablet) 20 mg PO DAILY [facility] Calcium Carbonate (Calcium Carbonate 750 Mg Tab.Chew) 750 mg PO Q4H PRN PRN Reason: Heartburn Clopidogrel Bisulfate (Clopidogrel Bisulfate 75 Mg Tablet) 75 mg PO DAILY [facility] Docusate Sodium (Docusate Sodium 100 Mg Capsule) 100 mg PO BEDTIME [facility] Enoxaparin Sodium (Enoxaparin Sodium 40 Mg/0.4 Ml Syringe) 40 mg SUBCUT Q24H [facility] Last Admin: 12/05/23 21:21 Dose: 40 mg Escitalopram Oxalate (Escitalopram Oxalate 5 Mg Tablet) 5 mg PO DAILY [facility] Finasteride (Finasteride 5 Mg Tablet) 5 mg PO DAILY [facility] Levetiracetam (Levetiracetam 250 Mg Tablet) 750 mg PO BID [facility] Last Admin: 12/06/23 09:13 Dose: 750 mg Lorazepam (Lorazepam 0.5 Mg Tablet) 0.5 mg PO Q6H PRN PRN Reason: anxiety Magnesium Hydroxide (Milk Of Magnesia 30 Ml Oral.Susp) 30 ml PO DAILY PRN PRN Reason: Constipation Last Admin: 12/06/23 09:19 Dose: 30 ml Melatonin (Melatonin 3 Mg Tablet) 6 mg PO BEDTIME PRN PRN Reason: Insomnia Metoprolol Succinate (Metoprolol Succinate Er 25 Mg Tab.Er.24h) 25 mg PO DAILY [facility]; Protocol Last Admin: 12/06/23 09:15 Dose: Not Given Mirtazapine (Mirtazapine 7.5 Mg Tablet) 7.5 mg PO BEDTIME [facility] Ondansetron HCl (Ondansetron Hcl 4 Mg/2 Ml Vial) 4 mg IVPUSH Q8H PRN PRN Reason: Nausea and Vomiting Polyethylene Glycol (Polyethylene Glycol 3350 17 Gm Powd.Pack) 17 gm PO BEDTIME [facility] Sodium Chloride (0.9 % Sodium Chloride Flush 3 Ml Syringe) 3 ml IVFLUSH QSHIFT [facility] Last Admin: 12/06/23 08:10 Dose: 3 ml Tamsulosin HCl (Tamsulosin Hcl 0.4 Mg Capsule) 0.4 mg PO DAILY [facility] Venlafaxine HCl (Venlafaxine Hcl 25 Mg Tablet) 37.5 mg PO DAILY [facility] Home Medications ?Medication ?Instructions ?Recorded ?Confirmed ?Last Taken ?Type amlodipine 10 mg tablet 10 mg PO DAILY 12/05/23 12/05/23 Unknown History aspirin 81 mg tablet,delayed 81 mg PO DAILY 12/05/23 12/05/23 Unknown History release atorvastatin 20 mg tablet 20 mg PO DAILY 12/05/23 12/05/23 Unknown History clopidogrel 75 mg tablet 75 mg PO DAILY 12/05/23 12/05/23 Unknown History docusate sodium 100 mg capsule 100 mg PO BEDTIME 12/05/23 12/05/23 Unknown History (Colace) escitalopram oxalate 5 mg tablet 5 mg PO DAILY 12/05/23 12/05/23 Unknown History (Lexapro) finasteride 5 mg tablet 5 mg PO DAILY 12/05/23 12/05/23 Unknown History levetiracetam 750 mg tablet 750 mg PO BID 12/05/23 12/05/23 Unknown History metoprolol succinate 25 mg 25 mg PO DAILY 12/05/23 12/05/23 Unknown History tablet,extended release 24 hr mirtazapine 15 mg tablet (Remeron) 7.5 mg PO BEDTIME 12/05/23 12/05/23 Unknown History polyethylene glycol 3350 17 17 g PO BEDTIME 12/05/23 12/05/23 Unknown History gram/dose oral powder (Miralax) tamsulosin 0.4 mg capsule 0.4 mg PO DAILY 12/05/23 12/05/23 Unknown History venlafaxine 37.5 mg tablet 37.5 mg PO DAILY 12/05/23 12/05/23 Unknown History Physical Exam Vital Signs: Vital Signs: Last Vital Signs Temp 97.9 F 12/06/23 07:29 Pulse 55 12/06/23 09:15 Resp 18 12/06/23 07:29 BP 133/69 12/06/23 07:29 Pulse Ox 93 12/06/23 07:29 O2 Del Method Room Air 12/06/23 07:29 BMI result Body Mass Index 19.8 Neuro: Other: He is alert and awake with normal spontaneity of speech fluency comprehension and flat to wake affect. He is answering questions and responding to commands. Face is symmetrical. Visual stearns are full. Deep tendon reflexes are trace to absent with flexor plantars. Results Labs 12/06/23 04:11 12/06/23 04:11 Labs: Short CBC 12/05/23 12/05/23 12/06/23 Range/Units 18:13 19:35 04:11 WBC 5.5 5.0 4.3 L (4.8-10.8) X10*3/uL Hgb 14.4 15.6 12.3 L D (14.0-18.0) g/dl Hct 40.0 L 43.1 34.6 L (42.0-52.0) % Plt Count 198 216 181 (160-400) X10*3/uL BMP 12/05/23 12/05/23 12/06/23 18:13 19:35 04:11 Sodium 137 136 137 Potassium 4.0 4.2 3.5 Chloride 101 98 103 Carbon Dioxide 25 26 27 BUN 25 H 24 H 25 H Creatinine 1.06 1.06 1.10 Calcium 9.0 9.3 8.4 D Urine 12/05/23 Range/Units 18:35 Urine Color Yellow Urine Appearance Clear Urine pH 6.5 (5.0-9.0) Ur Specific [place] 1.015 (1.005-1.025) Urine Protein 30 (1+) H (Neg-Trace) mg/dL Urine Glucose (UA) Negative (Negative) mg/dL Head CT revealed moderately severe diffuse cerebral atrophy and 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 Assessment and Plan (1) Seizure disorder: Status: Acute 83 years old man with underlying multifactorial, degenerative +vascular, dementia. He probably also suffered from complex partial seizure disorder, a common complication in this type of patients. If no other etiology of the episode was found, I recommend starting him on levetiracetam 250 mg twice a day. Procedures Date of Service Date of Service: 12/06/23
--- NOTE | 2023-12-06 12:46 | P.PNIM_ITS ---
Subjective Subjective Date of Service: 12/06/23 Interval History: Seen and examined this morning Follow-up for ?encephalopathy/seizure activity Patient awake, alert, in no acute distress, answering questions appropriately Feeling depressed, continues to make suicidal statements Review of Systems Review of Systems: Yes all other systems are reviewed and are negative Constitutional Constitutional: Denies chills and Denies fever(s) Cardiovascular Cardiovascular: Denies chest pain and Denies dyspnea Respiratory Respiratory: Denies dyspnea Gastrointestinal Gastrointestinal: Denies abdominal pain, Denies nausea and Denies vomiting Physical Exam 2 Vital Signs: Vital Signs: Last Vital Signs Temp 97.9 F 12/06/23 07:29 Pulse 55 12/06/23 09:15 Resp 18 12/06/23 07:29 BP 133/69 12/06/23 07:29 Pulse Ox 93 12/06/23 07:29 O2 Del Method Room Air 12/06/23 07:29 BMI result Body Mass Index 19.8 Const: General: cooperative, comfortable, alert and awake Nutritional Appearance: thin Orientation/consciousness: patient oriented x3 Resp: Effort & Inspection: normal respiratory effort, able to speak in complete sentences, no respiratory distress and no use of accessory muscles A uscultation: clear to auscultation bilaterally Cardio: Rate: bradycardic GI: Inspection: No distended Palpation (GI): Soft to palpation and nontender Neuro: General: patient oriented x3, moves all extremities and CN's II-XI intact bilaterally Extrem: General: Yes no pedal edema Objective Data Active Medications Acetaminophen (Acetaminophen 325 Mg Tablet) 650 mg PO Q6H PRN PRN Reason: Pain, Mild (Pain Scale 1-3), fever or headache Amlodipine Besylate (Amlodipine Besylate 10 Mg Tablet) 10 mg PO DAILY [facility]; Protocol Aspirin (Aspirin Enteric Coated 81 Mg Tablet.Dr) 81 mg PO DAILY [facility] Atorvastatin Calcium (Atorvastatin Calcium 20 Mg Tablet) 20 mg PO DAILY [facility] Calcium Carbonate (Calcium Carbonate 750 Mg Tab.Chew) 750 mg PO Q4H PRN PRN Reason: Heartburn Clopidogrel Bisulfate (Clopidogrel Bisulfate 75 Mg Tablet) 75 mg PO DAILY [facility] Docusate Sodium (Docusate Sodium 100 Mg Capsule) 100 mg PO BEDTIME [facility] Enoxaparin Sodium (Enoxaparin Sodium 40 Mg/0.4 Ml Syringe) 40 mg SUBCUT Q24H [facility] Last Admin: 12/05/23 21:21 Dose: 40 mg Documented By: YEISON Escitalopram Oxalate (Escitalopram Oxalate 5 Mg Tablet) 5 mg PO DAILY [facility] Finasteride (Finasteride 5 Mg Tablet) 5 mg PO DAILY [facility] Levetiracetam (Levetiracetam 250 Mg Tablet) 750 mg PO BID [facility] Last Admin: 12/06/23 09:13 Dose: 750 mg Documented By: UNIQUE Lorazepam (Lorazepam 0.5 Mg Tablet) 0.5 mg PO Q6H PRN PRN Reason: anxiety Magnesium Hydroxide (Milk Of Magnesia 30 Ml Oral.Susp) 30 ml PO DAILY PRN PRN Reason: Constipation Last Admin: 12/06/23 09:19 Dose: 30 ml Documented By: UNIQUE Melatonin (Melatonin 3 Mg Tablet) 6 mg PO BEDTIME PRN PRN Reason: Insomnia Metoprolol Succinate (Metoprolol Succinate Er 25 Mg Tab.Er.24h) 25 mg PO DAILY [facility]; Protocol Last Admin: 12/06/23 09:15 Dose: Not Given Documented By: UNIQUE Non-Admin Reason: Decreased Heart Rate Comments: HR 50-55, medication held Mirtazapine (Mirtazapine 7.5 Mg Tablet) 7.5 mg PO BEDTIME [facility] Ondansetron HCl (Ondansetron Hcl 4 Mg/2 Ml Vial) 4 mg IVPUSH Q8H PRN PRN Reason: Nausea and Vomiting Polyethylene Glycol (Polyethylene Glycol 3350 17 Gm Powd.Pack) 17 gm PO BEDTIME [facility] Sodium Chloride (0.9 % Sodium Chloride Flush 3 Ml Syringe) 3 ml IVFLUSH QSHIFT [facility] Last Admin: 12/06/23 08:10 Dose: 3 ml Documented By: UNIQUE Tamsulosin HCl (Tamsulosin Hcl 0.4 Mg Capsule) 0.4 mg PO DAILY [facility] Venlafaxine HCl (Venlafaxine Hcl 25 Mg Tablet) 37.5 mg PO DAILY [facility] Labs 12/06/23 04:11 12/06/23 04:11 Labs: Laboratory Results - last 24 hr 12/05/23 12/05/23 12/05/23 18:07 18:13 18:35 MCV 93.0 MCH 33.5 H MCHC 36.0 RDW 12.9 Plt Count 198 MPV 9.7 Immature Gran % (Auto) 1.3 H Neut % (Auto) 73.2 H Lymph % (Auto) 12.8 L [place] % (Auto) 11.5 H Eos % (Auto) 0.5 Baso % (Auto) 0.7 Lymph # (Auto) 0.7 L [place] # (Auto) 0.6 Eos # (Auto) 0.0 Baso # (Auto) 0.0 Abs Immat Gran (auto) 0.07 H Absolute Neuts (auto) 4.0 Absolute Nucleated RBC 0.000 Nucleated RBC % (auto) 0.0 PT INR APTT Anion Gap 15 Estim Creat Clear Calc 42.4 Estimated GFR > 60 POC Glucose 114 Random Glucose 120 H Lactic Acid Calcium 9.0 Ammonia Troponin I High Sens Triglycerides Cholesterol LDL Cholesterol, Calc HDL Cholesterol Urine Color Yellow Urine Appearance Clear Urine pH 6.5 Ur Specific [place] 1.015 Urine Protein 30 (1+) H Urine Glucose (UA) Negative Urine Ketones Trace Urine Blood Negative Urine Nitrite Positive H Ur Leukocyte Esterase Trace H Urine RBC 0-2 Urine WBC 6-10 H Ur Squamous Epith Cells 0-2 Urine Bacteria None Seen Hyaline Casts 0-2 Salicylates < 5.0 L Urine Opiates Screen Not Detected Ur Buprenorphine Scrn Not Detected Ur Oxycodone Screen Not Detected Urine Methadone Screen Not Detected Urine Fentanyl Screen Not Detected Acetaminophen Ur Barbiturates Screen Not Detected Ur Phencyclidine Scrn Not Detected Ur Amphetamines Screen Not Detected U Benzodiazepines Scrn Not Detected Urine Cocaine Screen Not Detected U Marijuana (THC) Screen Not Detected Ethyl Alcohol < 10 12/05/23 12/05/23 12/06/23 19:35 19:54 04:11 MCV 93.3 93.3 MCH 33.8 H 33.2 H MCHC 36.2 H 35.5 RDW 13.0 13.2 Plt Count 216 181 MPV 10.0 10.2 Immature Gran % (Auto) 0.6 H 0.2 Neut % (Auto) 75.2 H 66.3 Lymph % (Auto) 12.7 L 22.0 [place] % (Auto) 10.3 9.6 Eos % (Auto) 0.8 1.4 Baso % (Auto) 0.4 0.5 Lymph # (Auto) 0.6 L 0.9 L [place] # (Auto) 0.5 0.4 Eos # (Auto) 0.0 0.1 Baso # (Auto) 0.0 0.0 Abs Immat Gran (auto) 0.03 0.01 Absolute Neuts (auto) 3.8 2.8 Absolute Nucleated RBC 0.000 0.000 Nucleated RBC % (auto) 0.0 0.0 PT 10.7 L INR 0.9 APTT 29.3 Anion Gap 16 11 L Estim Creat Clear Calc 42.4 40.9 Estimated GFR > 60 > 60 POC Glucose Random Glucose 118 H 173 H Lactic Acid 1.0 Calcium 9.3 8.4 D Ammonia 23 Troponin I High Sens 17.0 Triglycerides 48 Cholesterol 141 LDL Cholesterol, Calc 62 HDL Cholesterol 70 Urine Color Urine Appearance Urine pH Ur Specific [place] Urine Protein Urine Glucose (UA) Urine Ketones Urine Blood Urine Nitrite Ur Leukocyte Esterase Urine RBC Urine WBC Ur Squamous Epith Cells Urine Bacteria Hyaline Casts Salicylates Urine Opiates Screen Ur Buprenorphine Scrn Ur Oxycodone Screen Urine Methadone Screen Urine Fentanyl Screen Acetaminophen < 3 Ur Barbiturates Screen Ur Phencyclidine Scrn Ur Amphetamines Screen U Benzodiazepines Scrn Urine Cocaine Screen U Marijuana (THC) Screen Ethyl Alcohol < 10 Assessment and Plan (1) Acute encephalopathy: Status: Acute Plan This is a 83-year-old male with pertinent history of mood disorder, seizure disorder, hypertension, mixed hyperlipidemia, BPH who was sent to the emergency department from [facility] for evaluation of altered mentation. #. 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 to 1000 mg b.i.d.. No further workup recommended at this time. #. SI/HI in a patient with mood disorder: Continue home mood stabilizers. Continue one-to-one sitter for safety. Seen by psych recommended returned to inpatient stay, care team evaluation pending #. Seizure disorder: Continue home antiepileptics, dose increased as above Seizure precautions #. Possible UTI. asymptomatic. Urine culture pending #. Normocytic anemia. No evidence of acute blood loss, drop due to dilution? - will repeat H/H b12, folate wnl #. Hypertension: Continue metoprolol, Norvasc #. Mixed hyperlipidemia: On statin #. BPH: On finasteride and Flomax DVT prophylaxis: Lovenox Full code Quality Stroke Does the patient have a stroke diagnosis?: No VTE Prior VTE?: No VTE Risk Level:: Medical - moderate - high VTE Device Contraindication: Treatment Not Indicated VTE Drug Contraindication: N/A - Med Ordered
--- NOTE | 2023-12-06 13:10 | PM.DS ---
DS: Providers Provider Date of Service: 12/07/23 Date of admission: 12/05/23 20:43 Date of discharge: 12/07/23 Primary care physician: Unknown Physician Consults: 12/05/23 20:57 Consult for Sitter Routine Reason for consultation: SI, HI Consult to Neurology Routine Consulting Provider: [facility] Reason for consultation: Acute encephalopathy Consult to Psychiatry Routine Consulting Provider: Psych Covering Reason for consultation: ASPEN TELLEZ Attending physician on discharge: Woody Mclean Discharging clinician: Ellen Christian DS: Diagnosis Discharge Diagnosis (1) Acute encephalopathy: Status: Acute DS: Summary Hospital Course Hospital Course: From H&P on the day of admission This is a 83-year-old male with pertinent history of mood disorder, seizure disorder, hypertension, mixed hyperlipidemia, BPH who was sent to the emergency department from [facility] for evaluation of altered mentation. Patient is at [facility] for the last 2 days for suicidal and homicidal ideation. Patient was not responding to verbal stimulus and not answering questions and hence was sent to the ER. As per ER provider, patient was drowsy and unable to provide any information. Patient was completely altered and not following any commands. Patient was sent to CT scan and after returning had a questionable episode of seizure in the ER witnessed by ER provider. Was given IV Ativan for the seizure episode. At the time of my evaluation, patient does not know why he is at the hospital. He is oriented x2 and is able to answer questions and follow simple commands. No chest discomfort, palpitations, shortness of breath, abdominal pain. Acute encephalopathy, likely due to breakthrough partial seizure. Seen by Neurology, imaging with no acute changes, with underlying multifactorial, degenerative and vascular dementia. Initially recommended increasing dose of Keppra from 750 b.i.d. to 1000 mg b.i.d.. however after discussion with she feels that Keppra is contributing to his violent behavior and requested that this medication be stopped. Discussed with neurology who recommended stopping Keppra and starting Depakote 500 b.i.d. no further seizure activity since admission. Normocytic. B12, folic acid obtained and wnl no evidence of acute blood loss. Recommend to follow CBC periodically CTA of head and neck without proximal occlusion. 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 No additional flow limiting stenosis. Outpatient follow-up recommended. continue home dose of aspirin, Plavix, statin initial concern for UTI. patient asymptomatic. UA without bacteria. urine culture growing 10-50,000 cfu staph species no need for tretment Time Attestation Discharge Coordination Time (in mins): 36 Quality: Safe Use of Opioids Does Pt have an Active Cancer Diagnosis on the Problem List?: No Quality: Stroke Does the patient have a stroke diagnosis?: No Physical Exam Vital Signs: Vital Signs: Last Vital Signs Temp 97.9 F 12/06/23 07:29 Pulse 55 12/06/23 09:15 Resp 18 12/06/23 07:29 BP 133/69 12/06/23 07:29 Pulse Ox 93 12/06/23 07:29 O2 Del Method Room Air 12/06/23 07:29 BMI result Body Mass Index 19.8 Const: General: cooperative, comfortable, alert and awake Nutritional Appearance: thin Resp: Effort & Inspection: normal respiratory effort, able to speak in complete sentences, no respiratory distress and no use of accessory muscles Auscultation: clear to auscultation bilaterally Cardio: Rate: bradycardic GI: Inspection: No distended Palpation (GI): Soft to palpation and nontender Neuro: General: moves all extremities and CN's II-XI intact bilaterally Extrem: General: Yes no pedal edema DS: Data Data Completed and Pending Labs on day of discharge: Laboratory Results - last 24 hr 12/05/23 12/05/23 12/05/23 18:07 18:13 18:35 WBC 5.5 RBC 4.30 L Hgb 14.4 Hct 40.0 L MCV 93.0 MCH 33.5 H MCHC 36.0 RDW 12.9 Plt Count 198 MPV 9.7 Immature Gran % (Auto) 1.3 H Neut % (Auto) 73.2 H Lymph % (Auto) 12.8 L [place] % (Auto) 11.5 H Eos % (Auto) 0.5 Baso % (Auto) 0.7 Lymph # (Auto) 0.7 L [place] # (Auto) 0.6 Eos # (Auto) 0.0 Baso # (Auto) 0.0 Abs Immat Gran (auto) 0.07 H Absolute Neuts (auto) 4.0 Absolute Nucleated RBC 0.000 Nucleated RBC % (auto) 0.0 PT INR APTT Sodium 137 Potassium 4.0 Chloride 101 Carbon Dioxide 25 Anion Gap 15 BUN 25 H Creatinine 1.06 Estim Creat Clear Calc 42.4 Estimated GFR > 60 POC Glucose 114 Random Glucose 120 H Lactic Acid Calcium 9.0 Ammonia Troponin I High Sens Triglycerides Cholesterol LDL Cholesterol, Calc HDL Cholesterol Urine Color Yellow Urine Appearance Clear Urine pH 6.5 Ur Specific [place] 1.015 Urine Protein 30 (1+) H Urine Glucose (UA) Negative Urine Ketones Trace Urine Blood Negative Urine Nitrite Positive H Ur Leukocyte Esterase Trace H Urine RBC 0-2 Urine WBC 6-10 H Ur Squamous Epith Cells 0-2 Urine Bacteria None Seen Hyaline Casts 0-2 Salicylates < 5.0 L Urine Opiates Screen Not Detected Ur Buprenorphine Scrn Not Detected Ur Oxycodone Screen Not Detected Urine Methadone Screen Not Detected Urine Fentanyl Screen Not Detected Acetaminophen Ur Barbiturates Screen Not Detected Ur Phencyclidine Scrn Not Detected Ur Amphetamines Screen Not Detected U Benzodiazepines Scrn Not Detected Urine Cocaine Screen Not Detected U Marijuana (THC) Screen Not Detected Ethyl Alcohol < 10 12/05/23 12/05/23 12/06/23 19:35 19:54 04:11 WBC 5.0 4.3 L RBC 4.62 3.71 L Hgb 15.6 12.3 L D Hct 43.1 34.6 L MCV 93.3 93.3 MCH 33.8 H 33.2 H MCHC 36.2 H 35.5 RDW 13.0 13.2 Plt Count 216 181 MPV 10.0 10.2 Immature Gran % (Auto) 0.6 H 0.2 Neut % (Auto) 75.2 H 66.3 Lymph % (Auto) 12.7 L 22.0 [place] % (Auto) 10.3 9.6 Eos % (Auto) 0.8 1.4 Baso % (Auto) 0.4 0.5 Lymph # (Auto) 0.6 L 0.9 L [place] # (Auto) 0.5 0.4 Eos # (Auto) 0.0 0.1 Baso # (Auto) 0.0 0.0 Abs Immat Gran (auto) 0.03 0.01 Absolute Neuts (auto) 3.8 2.8 Absolute Nucleated RBC 0.000 0.000 Nucleated RBC % (auto) 0.0 0.0 PT 10.7 L INR 0.9 APTT 29.3 Sodium 136 137 Potassium 4.2 3.5 Chloride 98 103 Carbon Dioxide 26 27 Anion Gap 16 11 L BUN 24 H 25 H Creatinine 1.06 1.10 Estim Creat Clear Calc 42.4 40.9 Estimated GFR > 60 > 60 POC Glucose Random Glucose 118 H 173 H Lactic Acid 1.0 Calcium 9.3 8.4 D Ammonia 23 Troponin I High Sens 17.0 Triglycerides 48 Cholesterol 141 LDL Cholesterol, Calc 62 HDL Cholesterol 70 Urine Color Urine Appearance Urine pH Ur Specific [place] Urine Protein Urine Glucose (UA) Urine Ketones Urine Blood Urine Nitrite Ur Leukocyte Esterase Urine RBC Urine WBC Ur Squamous Epith Cells Urine Bacteria Hyaline Casts Salicylates Urine Opiates Screen Ur Buprenorphine Scrn Ur Oxycodone Screen Urine Methadone Screen Urine Fentanyl Screen Acetaminophen < 3 Ur Barbiturates Screen Ur Phencyclidine Scrn Ur Amphetamines Screen U Benzodiazepines Scrn Urine Cocaine Screen U Marijuana (THC) Screen Ethyl Alcohol < 10 Preliminary micro results at discharge 12/05/23 18:58 Urine Culture - Preliminary Urine Catheterized - Duff Catheter Culture in progress. Discharge Plan Discharge Patient Disposition: Xfer Psychiatric Hosp Discharge Diagnosis: Seizure disorder dementia SI Referrals: Physician,Unknown J [Primary Care Provider] - 1 Week Discharge Medications: New divalproex 500 mg Tablet,Delayed Release (Dr/Ec) 500 mg PO BID Qty: 1 0RF Continued atorvastatin 20 mg tablet 20 mg PO DAILY clopidogrel 75 mg tablet 75 mg PO DAILY tamsulosin 0.4 mg capsule 0.4 mg PO DAILY amlodipine 10 mg tablet 10 mg PO DAILY venlafaxine 37.5 mg Tablet 37.5 mg PO DAILY docusate sodium [Colace] 100 mg Capsule 100 mg PO BEDTIME mirtazapine [Remeron] 15 mg Tablet 7.5 mg PO BEDTIME metoprolol succinate 25 mg tablet extended release 24 hr 25 mg PO DAILY polyethylene glycol 3350 [Miralax] 17 gram/dose Powder 17 g PO BEDTIME finasteride 5 mg tablet 5 mg PO DAILY escitalopram oxalate [Lexapro] 5 mg Tablet 5 mg PO DAILY acetaminophen 325 mg Tablet 650 mg PO Q6H PRN (Reason: Pain (Scale Score 1-3)) haloperidol 5 mg Tablet 5 mg PO Q6H PRN (Reason: Psychosis) magnesium hydroxide [Milk of Magnesia] 400 mg/5 mL Suspension 30 ml PO DAILY PRN (Reason: Constipation) aspirin 81 mg Tablet,Chewable 81 mg PO DAILY lactulose 20 gram/30 mL Solution 20 g PO DAILY PRN (Reason: Constipation ) Discontinued levetiracetam 750 mg tablet 750 mg PO BID lorazepam 2 mg/mL Solution 2 mg IV Q5M PRN (Reason: Seizure Activity) Rx Instructions: until hemodynamically stable Discharge Orders: Discharge Order (Routine); Ordered 12/07/23 Ordered By: Ellen Christian Activity on Discharge: As tolerated Stand Alone Forms: Patient Portal Discharge page Print Language: Kenyan Care Plan Goals: See below Health Concerns: Metabolic encephalopathy due to partial seizure Suicidal ideation Plan of Treatment: Seen by Neurology, as concern that Keppra is contributing to violent behavior Keppra was discontinued and he was changed to Depakote Ongoing inpatient psychiatric care for persistent suicidal ideation Assessment: See discharge summary
[2023-12-06 13:18] LABS: Thyroid Stimulating Hormone 1.91 uIU/mL (0.32-4.0)
--- NOTE | 2023-12-06 13:19 | PC.NURSE ---
Patient's Kiana called, , asking for patient update and wanting to speaking to a provider, states she hasn't spoke to a provider in days. Admitting provider and psych TEACHER COUNSELOR both made aware
[2023-12-06] MEDS: levETIRAcetam 250 MG TABLET PO (13:27)
--- NOTE | 2023-12-06 13:28 | MHC.CM.PN ---
Angela 12/06/23, Pt came to Hosp from [facility], where he is being treated for HI and SI. Pt. reports that he has been in hosp ([facility], and [facility]) and A few SNF's over the last few months. Prior to that he has VNA services at home that ended. He said he has lost 10 lbs, and is now shakey, so uses a walker when ambulating. HCP is on file, names his : Kiana. PCP is Dr Dorsey in [place]. Pt. said that he would like to be in a facility where he can get treatment for Depression that is near [place]. DCP: Care team eval for disposition. CM will follow and assist as needed with DC plan.
[2023-12-06 13:32] LABS: Vitamin B12 413 pg/mL (200-900)
--- NOTE | 2023-12-06 13:42 | MHC.CLN ---
RE: CONSULT HT 5'8 WT 130# IBW 154#+/-10%, BMI 19.8 PT IS 84% IBW RANGE INDICATES MILDLY UNDER WT FOR HT PT WITH NO PREVIOUS WT HX AVAILABLE PT REPORTS 10# WT LOSS WITH UNKNOWN TIMEFRAME PT STATES, I WOULD LIKE TO GET MY DIET ON TRACK REVIEWED LABS: BUN 25, RG 173 DIET RX: REGULAR-APPROPRIATE RECOMMEND ADDING ENSURE BID TO INCREASE KCALS SUPP TO PROVIDE 700KCALS, 40G PROTEIN MONITOR PO INTAKE AND ENCOURAGE SUPPLEMENTS FULL NUTRITION ASSESSMENT TO FOLLOW
[2023-12-06 14:31] LABS: Hematocrit 39.2 % (42.0-52.0); Hemoglobin 13.8 g/dl (14.0-18.0)
--- NOTE | 2023-12-06 14:58 | PC.NURSE ---
Patient at EEG at this time, spoke to CARE team. [facility] does not have beds at this time, patient will be held here until bed available, CARE team to speak to provider.
--- NOTE | 2023-12-06 15:59 | PC.NURSE ---
Patient on phone with his on patient phone at this time
[2023-12-06] MEDS: Melatonin 3 MG TABLET 6 MG PO (20:28)
[2023-12-06] MEDS: Mirtazapine 7.5 MG TABLET PO (20:28)
[2023-12-06] MEDS: polyethylene glycoL 3350 17 GM POWD.PACK PO (20:28)
[2023-12-06] MEDS: Enoxaparin Sodium 40 MG/0.4 ML SYRINGE SUBCUT (20:28)
[2023-12-06] MEDS: Divalproex Sodium 500 MG TABLET.DR PO (20:28)
[2023-12-06] MEDS: Docusate Sodium 100 MG CAPSULE PO (20:28)
[2023-12-07 04:00] VITALS: BP 148/68; PULSE 54; RESP 16; TEMP 37; O2SAT 94
[2023-12-07 08:08] VITALS: BP 166/81; PULSE 57; RESP 18; TEMP 36.7; O2SAT 95
[2023-12-07] MEDS: 0.9 % Sodium Chloride Flush 3 ML SYRINGE IVFLUSH (08:32)
[2023-12-07] MEDS: Clopidogrel Bisulfate 75 MG TABLET PO (08:32)
[2023-12-07] MEDS: Aspirin Enteric Coated 81 MG TABLET.DR PO (08:32)
[2023-12-07] MEDS: Divalproex Sodium 500 MG TABLET.DR PO (08:32)
[2023-12-07] MEDS: Finasteride 5 MG TABLET PO (08:32)
[2023-12-07] MEDS: Tamsulosin HCL 0.4 MG CAPSULE PO (08:32)
[2023-12-07] MEDS: Metoprolol Succinate ER 25 MG TAB.ER.24H PO (08:32)
[2023-12-07] MEDS: amLODIPine Besylate 10 MG TABLET PO (08:32)
[2023-12-07] MEDS: Atorvastatin Calcium 20 MG TABLET PO (08:32)
[2023-12-07] MEDS: Escitalopram Oxalate 5 MG TABLET PO (08:32)
[2023-12-07] MEDS: Venlafaxine HCl ER 37.5 MG CAP.ER.24H PO (08:34)
[2023-12-07 13:16] VITALS: BMI 19.1
--- NOTE | 2023-12-07 13:32 | MHC.CLN ---
F/U DIET=REGULAR, SAFETY TRAY. ENSURE BID PROVIDES ADDITIONAL 700 KCALS, 40 G PROTEIN. UNDER WT FOR HT, 81% IBW. REPORTED 10# WT LOSS WITH UNKNOWN TIMEFRAME. DOES NOT APPEAR TO BE MALNOURISHED. MONITOR PO INTAKE AND ENCOURAGE SUPPLEMENTS.
--- NOTE | 2023-12-07 15:24 | MHC.CM.PN ---
EVERETT SPOKE TO ASHLIE AT [facility] THIS MORNING SHE INDICATED THE PT HAD A BED WITH THEM SHE ASKED THAT UPDATES BE FAXED TO THEM AND TRANSPORT BOOKED FOR 1500 UPDATES WERE FAXED TO HER AT [phone] AND TRANSPORT WAS BOOKED WITH [facility] FLOYD LATER INFORMED PT WAS SEEN BY CARE TEAM AND PLAN WAS TO ADMIT HIM TO [facility] TODAY ASHLIE [phone]
[2023-12-07 15:58] VITALS: BP 106/57; PULSE 61; RESP 18; TEMP 36.2; O2SAT 99
[2023-12-09 18:59] LABS: Levetiracetam Keppra 13.6 mcg/mL (6.0-46.0)
--- OUTSIDE RECORDS SUMMARY | 2023-12-12 06:09 | XMS_ITS | Continuity of Care Document ---
Author Organization [facility] Address [address] [place] [address], [address] [place] [address]- Care Team Providers Care Psych Specialist Name Role Phone Winifred Dorsey MD Primary Care Physician [phone] [place] [facility] [place](s): 11/03/22 - 12/03/22 [facility] [address] [place] [address], [address] [place], [place] [address] Allergies, Adverse Reactions, Alerts Substance Reaction Severity Status fentaNYL SEVERE URINE RETENTION Activ e Medications amLODIPine 10 mg oral tablet 10 mg, 1, tablet, By Mouth, Daily, # 30 tablet, Refills 0, Maintenance, 11/28/22 15:02:00 EDT, Partial fill upon patient request if the prescription is for a schedule II opioid drug. Start Date: 11/28/22 Status: Ordered atorvastatin 20 mg oral tablet 1 tablet = 20 mg, By Mouth, Daily, # 30 tablet, 0 Refills, Maintenance, 11/28/22 15:03:00 EDT, Tablet, Partial fill upon patient request if the prescription is for a schedule II opioid drug. Start Date: 11/28/22 Status: Ordered azelastine 137 mcg/inh (0.1%) nasal spray 2 sprays, Nares, Both, Daily, PRN Other Allergies, # 30 mL, 0 Refills, Maintenance, 11/28/22 15:04:00 EDT, [place], Partial fill upon patient request if the prescription is for a schedule II opioid drug. Start Date: 11/28/22 Status: Ordered Bactrim 400 mg-80 mg oral tablet 1 tablet, By Mouth, 2 times a day, # 10 tablet, 0 Refills, Maintenance, 11/28/22 15:05:00 EDT, Tablet, Partial fill upon patient request if the prescription is for a schedule II opioid drug. Start Date: 11/28/22 Status: Ordered Co Q-10 = 100 mg, By Mouth, Daily, 0 Refills, Maintenance, 11/28/22 15:06:00 EDT, Partial fill upon patientrequest if the prescription is for a schedule II opioid drug. Start Date: 11/28/22 Status: Ordered finasteride 5 mg oral tablet 1 tablet = 5 mg, By Mouth, Daily, # 30 tablet, 0 Refills, Maintenance, 11/28/22 15:03:00 EDT, Tablet, Partial fill upon patient request if the prescription is for a schedule II opioid drug. Start Date: 11/28/22 Status: Ordered Glucosamine Chondroitin By Mouth, Daily, 0 Refills, Maintenance, 11/28/22 15:05:00 EDT, Partial fill upon patient request if the prescription is for a schedule II opioid drug. Start Date: 11/28/22 Status: Ordered Lutein By Mouth, Daily, 0 Refills, Maintenance, 11/28/22 15:05:00 EDT, Partial fill upon patient request if the prescription is for a schedule II opioid drug. Start Date: 11/28/22 Status: Ordered Melatonin 0 Refills, Maintenance, 11/28/22 15:06:00 EDT, Partial fill upon patient request if the prescription is for a schedule II opioid drug. Start Date: 11/28/22 Status: Ordered Metoprolol Succinate ER 25 mg oral tablet, extended release 1 tablet = 25 mg, By Mouth, Daily, # 30 tablet, 0 Refills, Maintenance, 11/28/22 15:02:00 EDT, ER Tablet, Partial fill upon patient request if the prescription is for a schedule II opioid drug. Start Date: 11/28/22 Status: Ordered tamsulosin 0.4 mg oral capsule 0.4 mg, 1, capsule, By Mouth, Daily, # 30 capsule, Refills 0, Maintenance, 11/28/22 15:03:00 EDT, Partial fill upon patient request if the prescription is for a schedule II opioid drug. Start Date: 11/28/22 Status: Ordered Theratrum Complete with Lutein and Lycopene By Mouth, Daily, 0 Refills, Maintenance, 11/28/22 15:06:00 EDT, Partial fill upon patient request if the prescription is for a schedule II opioid drug. Start Date: 11/28/22 Status: Ordered Vitamin D3 1000 intl units oral capsule 1 capsule = 25 mcg, By Mouth, Daily, # 100 capsule, 0 Refills, Maintenance, 11/28/22 15:04:00 EDT, Capsule, Partial fill upon patient request if the prescription is for a schedule II opioid drug. Start Date: 11/28/22 Status: Ordered Social History Social History Type Response Smoking Status Former smoker, quit more than 30 days ago; Other: quit 1970; 0.5 ppd x 15 years; entered on: 11/28/22 Sex Patient Care team information Care Team Personnel Name: Winifred Dorsey MD Position: Reference Physician Member Role: PCP Address: Address: [address] [place] [address] [place] [address] Care Team Related Persons Name: YANNICK PEREYRA
--- OUTSIDE RECORDS SUMMARY | 2023-12-12 06:09 | XMS_ITS | Continuity of Care Document ---
Author Organization [facility] ter Address [address] [place] [address]- Care Team Providers Care Fiberglass Pipe Covering Supervisor Name Role Phone Winifred Dorsey MD Primary Care Physician [place] [facility] [place](s): 01/29/23 - 07/25/[address] [address] Attending Physician: Drake Mcrae DO Referring Physician: Drake Mcrae DO Allergies, Adverse Reactions, Alerts No Known Medication Allergies Medications acetaminophen 325 mg oral tablet 650 mg, By Mouth, Every 4 hours, PRN, Refills 0, Maintenance, Pain , Mild, 07/06/23 11:34:00 EDT, Partial fill upon patient request if the prescription is for a schedule II opioid drug. Start Date: 07/06/23 Status: Ordered amLODIPine 10 mg oral tablet 10 mg, 1, tablet, By Mouth, Daily, # 30 tablet, Refills 0, Maintenance, 11/28/22 15:02:00 EDT, Partial fill upon patient request if the prescription is for a schedule II opioid drug. Start Date: 11/28/22 Status: Ordered aspirin 81 mg oral delayed release tablet 81 mg, 1, tablet, By Mouth, Daily, # 30 tablet, Refills 0, Maintenance, 04/13/23 9:07:00 EST, Partial fill upon patient request if the prescription is for a schedule II opioid drug. Start Date: 04/13/23 Status: Ordered atorvastatin 20 mg oral tablet [...] mL, 0 Refills, Maintenance, 11/28/22 15:04:00 EDT, [place], Partial fill upon patient request if the prescription is for a schedule II opioid drug. Start Date: 11/28/22 Status: Ordered bisacodyl 10 mg rectal suppository 1 supp = 10 mg, Rectally, Daily, PRN Constipation, 0 Refills, Maintenance, 07/06/23 11:34:00 EDT, Suppository, Partial fill upon patient request if the prescription is for a schedule II opioid drug. Start Date: 07/06/23 Status: Ordered clopidogrel 75 mg oral tablet 75 mg, By Mouth, Daily, # 90 tablet, Refills 3, Tot. Refills 3, Maintenance, 04/13/23 12:41:00 EST,Route to Pharmacy Electronically, [id number], Partial fill upon patient request if the prescription is for a schedule II opioid drug., 173,... Start Date: 04/13/23 Status: Ordered Co Q-10 = 100 mg, By Mouth, Daily, 0 Refills, Maintenance, 11/28/22 15:06:00 EDT, Partial fill upon patientrequest if the prescription is for a schedule II opioid drug. Start Date: 11/28/22 Status: Ordered Docusate Sodium Capsule 100 mg, 1, capsule, By Mouth, 2 times a day, Refills 0, Maintenance, 07/06/23 11:34:00 EDT, Partialfill upon patient request if the prescription is for a schedule II opioid drug. Start Date: 07/06/23 Status: Ordered finasteride 5 mg oral tablet [...] opioid drug. Start Date: 11/28/22 Status: Ordered Polyethylene Glycol Powder 1 pack/packet = 17 Gm, By Mouth, Daily, 0 Refills, Maintenance, 07/06/23 11:34:00 EDT, Powder, Partial fill upon patient request if the prescription is for a schedule II opioid drug. Start Date: 07/06/23 Status: Ordered Senna 8.6 mg oral tablet 8.6 mg, 1, tablet, By Mouth, Daily, Refills 0, Maintenance, 07/06/23 11:34:00 EDT, Tablet, Partial fill upon patient request if the prescription is for a schedule II opioid drug. Start Date: 07/06/23 Status: Ordered tamsulosin 0.4 mg oral capsule [...] opioid drug. Start Date: 11/28/22 Status: Ordered traZODone 50 mg oral tablet 25 mg, By Mouth, Daily at bedtime, Refills 0, Maintenance, 07/06/23 11:34:00 EDT, Partial fill uponpatient request if the prescription is for a schedule II opioid drug. Start Date: 07/06/23 Status: Ordered Vitamin D3 1000 intl units oral capsule 1 capsule = 25 mcg, By Mouth, Daily, # 100 capsule, 0 Refills, Maintenance, 11/28/22 15:04:00 EDT, Capsule, Partial fill upon patient request if the prescription is for a schedule II opioid drug. Start Date: 11/28/22 Status: Ordered Problem List Condition Confirmation Course Effective Dates Status H ealth Status Informant Coronary artery disease Confirmed Active Diaphragmatic hernia Confirmed Active Hypertension Confirmed Active Diaphragm paralysis Confirmed Active Urinary retention Confirmed Active Social History Social History Type Response Smoking Status Former smoker, quit more than 30 days ago; Other: quit 1970; 0.5 ppd x 15 years; entered on: 11/28/22 Sex Patient Care team information Care Team Personnel Name: Ronda Fontenot RN Position: S RN Member Role: Primary Care Nurse Name: Janell Rice RN Position: S RN Member Role: Primary Care Nurse Name: Melissa Titus RN Position: S RN Member Role: Primary Care Nurse Name: Fabiola Fontanez NP Position: [facility] Associate Professional Member Role: Lifetime Consulting Provider Address: Address: [address] [place] [address] [facility] [address] Name: Jason Link MD Position: [facility] Renal MD Member Role: Lifetime Consulting Physician Address: Address: [address] [place] [address] [facility] [address] Name: Mariela Golden Position: S RN Member Role: Primary Care Nurse Name: Juan Carlos Gilbert RN Position: S RN Member Role: Primary Care Nurse Name: Winifred Dorsey MD Position: Reference Physician Member Role: PCP Address: Address: [address] [place] [address] [place] [address] [place] Care Team Related Persons Name: YANNICK PEREYRA Address: home [address] [place] [address]
--- OUTSIDE RECORDS SUMMARY | 2023-12-12 06:09 | XMS_ITS | Continuity of Care Document ---
Author Organization [facility] Address [address] [place] [address]- Care Team Providers Care Systems Trainer Name Role Phone Winifred Dorsey MD Primary Care Physician [place] [facility] [place]/23 [facility] [address] [place] [address]- Allergies, Adverse Reactions, Alerts Substance Reaction Severity [...] mL, 0 Refills, Maintenance, 11/28/22 15:04:00 EDT, [place], Partial fill upon patient request if the [...] more than 30 days ago; Other: quit 1969; 0.5 ppd x 15 years; entered on: 11/28/22 Sex Patient Care team information Care Team Personnel Name: Sunita MCKNIGHT , Winifred Schmid Position: Reference Physician Member Role: PCP Address: Address: [address] [place] [address] [place] [address] [place] Care Team Related Persons Name: YANNICK PEREYRA Address: home [address] [place] [address]
--- OUTSIDE RECORDS SUMMARY | 2023-12-12 06:09 | XMS_ITS | Continuity of Care Document ---
Author Organization [facility] Address [address] [place], [place] [address], [address] [place] [address]- Care Team Providers Care Flight Physician Name Role Phone Winifred Dorsey MD Primary Care Physician [phone] En[place] [facility] [place] Date(s): 01/29/23 - 04/18/23 [facility] [address] [place] [address], [address] [place], [place] [address] Attending Physician: Drake Mcrae DO Allergies, Adverse Reactions, Alerts Substance Reaction Severity [...] mL, 0 Refills, Maintenance, 11/28/22 15:04:00 EDT, [place], Partial fill upon patient request if the [...] opioid drug. Start Date: 11/28/22 Status: Ordered clopidogrel 75 mg oral tablet 75 mg, By Mouth, Daily, # 90 tablet, Refills 3, Tot. Refills 3, Maintenance, 04/13/23 12:41:00 EST,Route to Pharmacy Electronically, [id number], Partial fill upon patient request if the [...] Reference Physician Member Role: PCP Address: Address: [address] [place] [address] [place] [address] [place] Care Team Related Persons Name: YANNICK PEREYRA Address: home [address] [place] [address]
--- OUTSIDE RECORDS SUMMARY | 2023-12-12 06:09 | XMS_ITS | Continuity of Care Document ---
Author Organization [facility] Address [address] [place] [address] [address], [address] [place] [address]- Care Team Providers Care Network Account Manager Name Role Phone Winifred Dorsey MD Primary Care Physician [place] [facility] [place]23 [facility] [address] [place] [address] Drive [address] [place] [address]- Allergies, Adverse Reactions, Alerts No Known Medication [...] mL, 0 Refills, Maintenance, 11/28/22 15:04:00 EDT, [place], Partial fill upon patient request if the [...] Maintenance, 04/13/23 12:41:00 EST,Route to Pharmacy Electronically, [id number], Partial fill upon patient request if the [...] Care Nurse Name: Fabiola Fontanez NP Position: [facility] Associate Professional Member Role: Lifetime Consulting Provider Address: Address: [address] [place], [place] [address]E [facility] [address] Name: Jason Link MD Position: [facility] Renal MD Member Role: Lifetime Consulting Physician Address: Address: [address] [place], [place] [address]E [facility] [address] Name: Mariela Golden Position: S RN Member Role: Primary Care Nurse Name: Juan Carlos Gilbert RN Position: S RN Member Role: Primary Care Nurse Name: Winifred Dorsey MD Position: Reference Physician Member Role: PCP Address: Address: [address] [place] [address] [place] [address] [place] Care Team Related Persons Name: KYM PEREYRANDY Address: home [address] [place] [address]
--- OUTSIDE RECORDS SUMMARY | 2023-12-12 06:09 | XMS_ITS | Continuity of Care Document ---
Author Organization [facility] Address [address] [place] [address], [address] [place] [address]- Care Team Providers Care Vault Keeper Name Role Phone Winifred Dorsey MD Primary Care Physician [place] [facility] [place] 12/04/22 - 01/03/23 [facility] [address] [place] [address], [address] [place], [place] [address] Allergies, Adverse Reactions, Alerts Substance Reaction Severity [...] mL, 0 Refills, Maintenance, 11/28/22 15:04:00 EDT, [place], Partial fill upon patient request if the [...] Reference Physician Member Role: PCP Address: Address: [address] [place] [address] [place] [address] [place] Care Team Related Persons Name: YANNICK PEREYRA Address: home [address] [place] [address]
--- OUTSIDE RECORDS SUMMARY | 2023-12-12 06:09 | XMS_ITS | Continuity of Care Document ---
Author Organization [facility] Address [address] [place] [address] [address], [address] [place] [address]- Care Team Providers Care Cotton Bag Clipper Name Role Phone Winifred Dorsey MD Primary Care Physician [place] [facility] [place] 08[place]/23 [facility] [address] [place] [address] Drive [address] [place] [address]- Attending Physician: Drake Mcrae DO Allergies, Adverse [...] mL, 0 Refills, Maintenance, 11/28/22 15:04:00 EDT, [place], Partial fill upon patient request if the [...] Maintenance, 04/13/23 12:41:00 EST,Route to Pharmacy Electronically, [id number], Partial fill upon patient request if the [...] Care Nurse Name: Fabiola Fontanez NP Position: [facility] Associate Professional Member Role: Lifetime Consulting Provider Address: Address: [address] [place] [address] [facility] [address] Name: Jason Link MD Position: [facility] Renal MD Member Role: Lifetime Consulting Physician Address: Address: [address] [place] [address] [facility] [address] Name: Mariela Golden Position: S RN Member Role: Primary Care Nurse Name: Juan Carlos Gilbert RN Position: S RN Member Role: Primary Care Nurse Name: Winifred Dorsey MD Position: Reference Physician Member Role: PCP Address: Address: [address] [place] [address] [place] [address] [place] Care Team Related Persons Name: YANNICK PEREYRA Address: home [address] [place] [address]
--- OUTSIDE RECORDS SUMMARY | 2023-12-12 06:09 | XMS_ITS | Continuity of Care Document ---
Author Organization [facility] Address [address] [place] [address]- Care Team Providers Care Spinner Hand Name Role Phone Winifred Dorsey MD Primary Care Physician [place] [facility] [place] 04/08/23 [facility] [address] [place] [address]- Allergies, Adverse Reactions, Alerts Substance Reaction Severity [...] mL, 0 Refills, Maintenance, 11/28/22 15:04:00 EDT, [place], Partial fill upon patient request if the [...] Reference Physician Member Role: PCP Address: Address: [address] [place] [address] [place] [address] [place] Care Team Related Persons Name: YANNICK PEREYRA Address: home [address] [place] [address]
--- OUTSIDE RECORDS SUMMARY | 2023-12-12 06:09 | XMS_ITS | Continuity of Care Document ---
Author Organization [facility] Address [address] [place] [address], [address] [place] [address]- Care Team Providers Care Milieu Therapist Name Role Phone Winifred Dorsey MD Primary Care Physician Encounter [facility] [place] Date(s): 12/19/22 - 01/18/23 [facility] Thor[facility] [address] [place] [address], [address] [place], [place] [address] Attending Physician: Jacek Harkins Admitting Physician: AdmJacek cazares Referring Physician: Admtr ArTrixie Allergies, Adverse Reactions, Alerts Substance Reaction Severity [...] mL, 0 Refills, Maintenance, 11/28/22 15:04:00 EDT, [place], Partial fill upon patient request if the [...] Physician Member Role: PCP Address: Address: [address] [place] [address] [place] [address] [place] Care Team Related Persons Name: SUSANKYM KAURNDY Address: home [address] [place] [address]
--- OUTSIDE RECORDS SUMMARY | 2023-12-12 06:09 | XMS_ITS | Continuity of Care Document ---
Author Organization [facility] Address [address] [place] [address] [address] [place] [address]- Care Team Providers Care Director Pharmacology Name Role Phone Winifred Dorsey MD Primary Care Physician Encounter [facility] [place] Date(s): 04/05/23 - 05/05/[address] [place] [address]- Referring Physician: Delroy Burleson Allergies, Adverse Reactions, Alerts Substance Reaction Severity [...] mL, 0 Refills, Maintenance, 11/28/22 15:04:00 EDT, [place], Partial fill upon patient request if the [...] 04/13/23 12:41:00 EST,Route to Pharmacy Electronically, [facility], Partial fill upon patient request [...] Reference Physician Member Role: PCP Address: Address: [address] [place] [address] [place] [address] [place] Care Team Related Persons Name: YANNICK PEREYRA Address: home [address] [place] [address]
--- OUTSIDE RECORDS SUMMARY | 2023-12-12 06:09 | XMS_ITS | Continuity of Care Document ---
Author Organization [facility] Address [address] [place] [address]- Care Team Providers Care Color Technician Name Role Phone Winifred Dorsey MD Primary Care Physician [phone] Encounter [facility] [place] Date(s): 03/02/23 - 04/01/23 [facility] [address] [place] [address]- Allergies, Adverse Reactions, Alerts Substance Reaction Severity [...] mL, 0 Refills, Maintenance, 11/28/22 15:04:00 EDT, [place], Partial fill upon patient request if [...] Reference Physician Member Role: PCP Address: Address: [address] [place] [address] [place] [address] [place] Care Team Related Persons Name: YANNICK PEREYRA Address: home [address] [place] [address]
--- OUTSIDE RECORDS SUMMARY | 2023-12-12 06:09 | XMS_ITS | Continuity of Care Document ---
Author Organization [facility] Address [address] [place] [address], [address] [place] [address]- Care Team Providers Care Director Of Parks And Recreation Name Role Phone Winifred Dorsey MD Primary Care Physician [phone] Encounter [facility] [place] Date(s): 11/28/22 - 12/05/22 [facility] [address] [place] [address], [address] [place], [place] [address] Attending Physician: Drake Mcrae DO Referring Physician: Matty Rendon MD Allergies, Adverse Reactions, Alerts Substance Reaction Severity [...] mL, 0 Refills, Maintenance, 11/28/22 15:04:00 EDT, [place], Partial fill upon patient request if the [...] opioid drug. Start Date: 11/28/22 Status: Ordered Vital Signs Most recent to oldest [Reference Range]: 1 Weight 60.2 kg (11/28/22 2:55 PM) Oxygen Saturation [94-100 %] 96 % (11/28/22 2:55 PM) Pulse Rate [55-90 bpm] 75 bpm (11/28/22 2:55 PM) Blood Pressure [90-138/55-84 mm Hg] 130/ 66mm Hg (11/28/22 2:55 PM) Respiratory Rate [16-30 br/min] 16 br/mi n (11/28/22 2:55 PM) Temperature [96.8-100.4 DegF] 98.6 DegF (11/28/22 2:55 PM) Mode of Delivery (Oxygen) Room air (11/28/22 2:55 PM) Blood pressure sites Arm, right (11/28/22 2:55 PM) Temperature Route Temporal (11/28/22 2:55 PM) Weight Obtained Via Standing scale (11/28/22 2:55 PM) Social History Social History Type Response Smoking Status Former smoker, quit more than 30 days ago; Other: quit 1970; 0.5 ppd x 15 years; entered on: 11/28/22 Sex Patient Care team information Care Team Personnel Name: Winifred Dorsey MD Position: Reference Physician Member Role: PCP Address: Address: [address] [place] [address] [place] [address] [place] Care Team Related Persons Name: YANNICK PEREYRA
--- OUTSIDE RECORDS SUMMARY | 2023-12-12 06:09 | XMS_ITS | Continuity of Care Document ---
Author Organization [facility] Address [address] [place] [address] [place], [address] [place] [address]- Care Team Providers Care Veneer Manufacturer Name Role Phone Sunita MCKNIGHT, Winifred Schmid Primary Care Physician [phone] Encounter [facility] Date(s): 02/26/23 - 03/28/23 [facility] Surgery [address] [place] [address], [address] [place], [place] [address] Allergies, Adverse Reactions, Alerts Substance Reaction [...] mL, 0 Refills, Maintenance, 11/28/22 15:04:00 EDT, [place], Partial fill upon patient request if the [...] Reference Physician Member Role: PCP Address: Address: [address] [place] [address] [place] [address] [place] Care Team Related Persons Name: YANNICK PEREYRA Address: home [address] [place] [address]
--- OUTSIDE RECORDS SUMMARY | 2023-12-12 06:09 | XMS_ITS | Continuity of Care Document ---
Author Organization [facility] Address [address] [place] [address]- Care Team Providers Care Store Cashier Name Role Phone Winifred Dorsey MD Primary Care Physician [phone] Encounter [facility] [place] Date(s): 03/09/23 - 04/08/23 [facility] [address] [place] [address]- Allergies, Adverse Reactions, Alerts Substance Reaction Severity [...] mL, 0 Refills, Maintenance, 11/28/22 15:04:00 EDT, [place], Partial fill upon patient request if the [...] Reference Physician Member Role: PCP Address: Address: [address] [place] [address] [place] [address] [place] Care Team Related Persons Name: YANNICK PEREYRA Address: home [address] [place] [address]
--- OUTSIDE RECORDS SUMMARY | 2023-12-12 06:09 | XMS_ITS | Continuity of Care Document ---
Author Organization [facility] Address [address] [place] [address] [address], [address] [place] [address]- Care Team Providers Care Rn Radiation Oncology Name Role Phone Winifred Dorsey MD Primary Care Physician [phone] Encounter [facility] [place] Date(s): 07/24/23 - 07/31/23 [facility] Thor[facility] Surgery [address] [place] [address] Drive [address] [place], [place] [address] Attending Physician: Sandra Schafer NP Allergies, Adverse Reactions, Alerts No Known Medication [...] mL, 0 Refills, Maintenance, 11/28/22 15:04:00 EDT, [place], Partial fill upon patient request if the [...] Maintenance, 04/13/23 12:41:00 EST,Route to Pharmacy Electronically, [facility], Partial fill upon patient request if the [...] paralysis Confirmed Active Urinary retention Confirmed Active Vital Signs Most recent to oldest [Reference Range]: 1 Height 173 cm (07/24/23 2:56 PM) Weight 62.6 kg (07/24/23 3:45 PM) Oxygen Saturation [94-100 %] 97 % (07/24/23 2:56 PM) Pulse Rate [55-90 bpm] 66 bpm (07/24/23 2:56 PM) Blood Pressure [90-138/55-84 mm Hg] 132/ 66mm Hg (07/24/23 2:56 PM) Temperature [96.8-100.4 DegF] 97.6 DegF (07/24/23 2:56 PM) Mode of Delivery (Oxygen) Room air (07/24/23 2:56 PM) Blood pressure sites Arm, left (07/24/23 2:56 PM) Temperature Route Temporal (07/24/23 2:56 PM) Social History Social History Type Response Smoking Status Former smoker, quit more than 30 days ago; Other: quit 1969; 0.5 ppd x 15 years; entered on: 11/28/22 Sex Patient Care team information Care Team Personnel Name: Ronda Fontenot RN Position: [facility] RN Member Role: Primary Care Nurse Name: Janell Rice RN Position: [facility] RN Member Role: Primary Care Nurse Name: Melissa Titus RN Position: [facility] RN Member Role: Primary Care Nurse Name: Fabiola Fontanez NP Position: [facility] Associate Professional Member Role: Lifetime Consulting Provider Address: Address: [address] [place], [place] [address] [place], [place] [address] Name: Jason Link MD Position: [facility] Renal MD Member Role: Lifetime Consulting Physician Address: Address: [address] [place], [place] [address] [place], [place] [address] Name: Mariela Golden Position: [facility] RN Member Role: Primary Care Nurse Name: Juan Carlos Gilbert RN Position: S RN Member Role: Primary Care Nurse Name: Winifred Dorsey MD Position: Reference Physician Member Role: PCP Address: Address: [address] [place] [address] [place] [address] [place] Care Team Related Persons Name: YANNICK PEREYRA Address: home [address] [place] [address]
--- OUTSIDE RECORDS SUMMARY | 2023-12-12 06:09 | XMS_ITS | Continuity of Care Document ---
Author Organization [facility] Address [address] [place] [address] [place], [address] [place] [address]- Care Team Providers Care Hospice Clinical Marketer Name Role Phone Winifred Dorsey MD Primary Care Physician [phone] Encounter [facility] [place] Date(s): 02/06/23 - 03/08/23 [facility] Thor[facility] Surgery [address] [place] [address], [address] [place], [place] [address] Allergies, Adverse Reactions, Alerts [...] mL, 0 Refills, Maintenance, 11/28/22 15:04:00 EDT, [place], Partial fill upon patient request if the [...] Physician Member Role: PCP Address: Address: [address] [place] [address] [place] [address] [place] Care Team Related Persons Name: YANNICK PEREYRA Address: home [address] [place] [address]
--- OUTSIDE RECORDS SUMMARY | 2023-12-12 06:09 | XMS_ITS | Continuity of Care Document ---
Author Organization [facility] Address [address] [place] [address]- Care Team Providers Care Fitness Centre Manager Name Role Phone Winifred Dorsey MD Primary Care Physician Encounter [facility] [place] Date(s): 03/02/23 - 04/01/23 [facility] [address] [place] [address]- Allergies, Adverse Reactions, Alerts Substance Reaction Severity [...] mL, 0 Refills, Maintenance, 11/28/22 15:04:00 EDT, [place], Partial fill upon patient request if the [...] Reference Physician Member Role: PCP Address: Address: [address] [place] [address] [place] [address] [place] Care Team Related Persons Name: YANNICK PEREYRA Address: home [address] [place] [address]
--- OUTSIDE RECORDS SUMMARY | 2023-12-12 06:10 | XMS_ITS | Continuity of Care Document ---
Author Organization [facility] Address [address] [place] [address] [address] [place], [address] [place] [address]- Care Team Providers Care Special Education Bus Driver Name Role Phone Winifred Dorsey MD Primary Care Physician En[place] [facility] [place] Date(s): 07/09/23 - 08/08/23 [facility] [address] [place] [address] Drive [address] [place] [address]- Allergies, Adverse Reactions, Alerts No Known Medication [...] mL, 0 Refills, Maintenance, 11/28/22 15:04:00 EDT, [place], Partial fill upon patient request if the [...] Maintenance, 04/13/23 12:41:00 EST,Route to Pharmacy Electronically, [facility], Partial fill upon patient request [...] Care Nurse Name: Fabiola Fontanez NP Position: [facility] Associate Professional Member Role: Lifetime Consulting Provider Address: Address: [address] [place], [place] [address]E [facility] [address] Name: Jason Link MD Position: [facility] Renal MD Member Role: Lifetime Consulting Physician Address: Address: [address] [place], [place] [address]E [facility] [address] Name: Mariela Golden Position: S RN Member Role: Primary Care Nurse Name: Juan Carlos Glibert RN Position: S RN Member Role: Primary Care Nurse Name: Winifred Dorsey MD Position: Reference Physician Member Role: PCP Address: Address: [address] [place] [address] [place] [address] [place] Care Team Related Persons Name: KYM PEREYRANDY Address: home [address] [place] [address]
--- OUTSIDE RECORDS SUMMARY | 2023-12-12 06:10 | XMS_ITS | Continuity of Care Document ---
Author Organization [employer] Address [address] [place] [id number] Phone Support Name Relationship Address Phone SANDHYA MOTA SUNSET, Results Personal Relationship [address] [place] [address] Care Team Providers Care Metal Lather Name Role Phone Winifred Dorsey Primary Care Provider Winifred Dorsey Referring Provider Iván Henderson MD Attending Provider [phone] Nayan Shoemaker MD Attending Provider Winifred Dorsey Primary Care Provider [phone] Malaika Bradford MD Attending Provider Aly Cuellar MD Attending Provider Aly Cuellar MD Referring Provider Winifred Dorsey Attending Provider [phone] Maribel Ruiz PHYSICIST CRYOGENICS Attending Provider Sandra Schafer LAMINATOR Attending Provider [phone] Debbie Hernandez Attending Provider Chief Complaint and Reason for Visit Chief Complaint Admit Date lvm Hosp f/u September 07, 2023 3:01p m LABWORK September 07, 2023 4:16p m [id number] September 18, 2023 5:51p m unspecified convulsions September 20, 2023 1 :01pm EEG September 20, 2023 11:59 pm stroke September 28, 2023 2:54p m [id number] September 28, 2023 5:27p m LABWORK October 01, 2023 11:5 8am conf*2 wk f/u October 04, 2023 2:32 pm Seizure October 11, 2023 3:14 pm labwork October 12, 2023 5:24 pm Conf*Follow up - medication rev September 3:29pm HISTORY OF DIAPHRAGMATIC HERNIA October 3:43pm 4 mth FU November 21, 2023 3:07 pm Reason for Visit Admit Date Seizure September 07, 2023 3:01p m Stroke September 07, 2023 3:01p m Seizure October 04, 2023 2:32 pm Stroke October 04, 2023 2:32 pm Seizure October 19, 2023 3:29 pm Hyperlipidemia November 21, 2023 3:07 pm Hypertension November 21, 2023 3:07 pm Mitral regurgitation November 21, 2023 3:0 7pm Mitral valve prolapse November 21, 2023 3: 07pm Pulmonary hypertension, unspecified November 21, 2023 3:07pm Two-vessel coronary artery disease November 21, 2023 3:07pm Allergies, Adverse Reactions, Alerts No known allergies Social History Smoking Status Status Start Date End Date Date of Observa tion Ex-smoker (finding) October 2:16pm Observation Status Observation Response Date of Response Patient Sex Male November 21, 2023 4:37pm Assigned Sex Male 1940 Family History Relationship Condition Age at Onset Recorded Date/T amber Not Specified Benign prostatic hyperplasia Unknown Not Specified Family history of cardiac disorder Unkno wn Not Specified Malignant neoplasm Unknown Problems Active Problems Medical Problem Onset Date Status Comments Seizure-like activity Active Colonoscopy refused Active Indwelling urinary catheter present Activ e Two-vessel coronary artery disease Active History of recurrent UTIs Active Impaired mobility and ADLs Active Urinary incontinence Active Chronic constipation Active Epididymo-orchitis Active LT Orthostatic hypotension Active Pulmonary hypertension, unspecified Activ e RVSP 37mmHg Diaphragmatic hernia Active Hyperlipidemia Active Hyponatremia Active Coronary artery calcificatio n seen on CT scan Active Mitral regurgitation Active Benign localized hyperplasia of prostate with urinary retention Active Rezum RF A 09/29/2022 Abnormal stress test Active Diaphragmatic paralysis Active Seizure Active High serum creatinine Active Syncope Active Laceration of head Active Acute retention of urine Active 06/22 024 post surgery (>2 L) requiring Duff catheter History of adenomatous polyp of colon Active Hypertension Active Mitral valve prolapse Active Stroke Active Inactive/Resolved Problems Medical Problem Onset Date Status Comments History of inguinal hernia repair Resolve d left and double Acute hypoxic respiratory failure Resolve d Acute encephalopathy Resolved Urinary frequency Resolved History of hydrocelectomy Resolved History of urologic surgery Resolved Rezum September 2022 S/P bronchoscopy Resolved History of arthroscopy of knee Resolved bilateral Hx of colonoscopy Resolved 2016 Altered mental state Resolved Preop cardiovascular exam Resolved Hydrocele, bilateral Resolved Acute urinary retention Resolved History of surgery Resolved plication of diphragm rt Medications Medication Status Dose Units Route Directions Qty Days St art Date Stop Date End Date Instructions Metoprolol Succinate 25 mg tablet extended release 24 hr Active 25 MG PO QAM@08 30 [facility] er 2019 1:00am Finasteride 5 mg tablet Discont inued 1 MG PO daily 30 [facility] 2019 1:00am September 15, 2021 2:56p m take 1 tablet by mouth once daily Amlodipine 10 mg tablet Active 10 MG PO QAM@08 90 [facility] er 2019 1:00am Tamsulosin 0.4 mg capsule Discont inued 1 MG PO daily 0 [facility] 2019 1:00am September 15, 2021 2:56p m TAKE 1 CAPSULE Daily Lorazepam 0.5 mg tablet Discont inued 0 .ROUTE .COMPLEX [facility] 2019 1:00am July 21, 2022 11:08 am LORazepam 0.5 MG Oral Tablet Wwsn-Psklm-F bt-C1-Ukcy-C al Bor 750 mg-100 mg- 25 mcg tablet Discont inued 0 .ROUTE .COMPLEX July 13, 2021 12:00a m Febru aleena 2023 6:24p m as directed Mecobalamin (Vitamin B12) 1,000 mcg tablet,chewa ble Discont inued 1000 MCG PO daily July 13, 2021 12:00a m Octob er 2021 11:56 am Cholecalcife rol (Vitamin D3) 25 mcg (1,000 unit) capsule Active 1000 UNIT PO QAM@08 July 13, 2021 12:00a m Beta Carotene 10,000 unit capsule Discont inued 81184 UNIT PO once July 13, 2021 12:00a m Octob er 2021 12:00 pm administer with a meal Lutein 20 mg capsule Discont inued 20 MG PO daily July 13, 2021 12:00a m Febru aleena2023 6:24p m give with meal/snack Melatonin 3 mg capsule Discont inued 6 MG PO at bedtime as needed July 13, 2021 12:00a m July 17, 2023 8:57p m Lycopene 10 mg capsule Discont inued 10 MG PO daily July 13, 2021 12:00a m Febru aleena 2023 6:24p m administer after a meal Coenzyme Q10 (Co Q-10) 100 mg capsule Active 100 MG PO QAM@08 July 13, 2021 12:00a m Fluticasone Propionate (Flonase Allergy Relief) 50 mcg/actuatio n spray,suspen peyton Discont inued 1 SPRAY NASAL every 12 hours July 13, 2021 12:00a m Augus t 2021 1:12p m administer into each nostril Azelastine 137 mcg (0.1 %) aerosol,spra y Discont inued 1 SPRAY NASAL twice a day July 13, 2021 12:00a m October 31, 2021 8:22a m administer into each nostril Finasteride 5 mg tablet Discont inued 1 MG PO daily 90 90 September 15, 2021 2:54pm Decem jaime 2021 11:13 am take 1 tablet by mouth once daily Tamsulosin 0.4 mg capsule Discont inued 0.4 MG PO at bedtime 90 90 September 15, 2021 2:55pm Decem jaime 2021 11:13 am TAKE 1 CAPSULE Daily Tamsulosin 0.4 mg capsule Discont inued 0.4 MG PO at bedtime 90 90 Decemb er 2021 11:12a m Augus t 2022 8:14a m TAKE 1 CAPSULE Daily Finasteride 5 mg tablet Discont inued 1 MG PO daily 90 90 Decemb er 2021 11:13a m Decem jaime 2021 2:17p m take 1 tablet by mouth once daily Levetiraceta m 500 mg tablet Active 500 MG PO twice a day August 02, 2023 2:21pm Valproic Acid 250 mg capsule Active 250 MG PO twice a day October 04, 2023 12:00a m Levetiraceta m 250 mg tablet Active 250 MG PO twice a day October 19, 2023 12:00a m Levetiraceta m 750 mg tablet Active 750 MG PO twice a day October 19, 2023 12:00a m Atorvastatin 20 mg tablet Discont inued 20 MG PO at bedtime August 21, 2022 12:00a m Augus t 2022 2:02p m Torsemide 20 mg tablet Discont inued 20 MG PO daily August 21, 2022 12:00a m August 28, 2022 1:28p m Aspirin (Adult Aspirin Regimen) 81 mg tablet,delay ed release (DR/EC) Discont inued 81 MG PO daily August 21, 2022 12:00a m August 28, 2022 1:36p m Polyethylene Glycol 3350 (Miralax) 17 gram/dose powder Discont inued 17 GM PO daily 2022 12:00a m Febru 2023 6:09p m Sulfamethoxa zole-Trimeth oprim (Bactrim Ds) 800-160 mg tablet Discont inued 1 TAB PO every 12 hours 20 November 20, 2022 12:00a m Augus t 2022 12:03 am Magnesium Hydroxide (Milk Of Magnesia) 400 mg/5 mL suspension Discont inued 5 ML PO daily as needed Octobe r 2022 12:00a m Febru aleena2023 9:59a m Sulfamethoxa zole-Trimeth oprim (Bactrim Ds) 800-160 mg tablet Discont inued 1 TAB PO every 12 hours 09 02 Octobe r 2022 2:27pm 2022 12:05 am Please stop the medication if you develop any rash, allergy or other adverse reaction Polyethylene Glycol 3350 (Miralax) 17 gram/dose powder Active 17 GM PO BID@,2023 1:00am Clopidogrel 75 mg tablet Active 75 MG PO QAM@2023 1:00am Lorazepam 0.5 mg tablet Active 0.25 MG PO at bedtime as needed November 21, 2023 12:00a m Cephalexin 500 mg capsule Discont inued 500 MG PO four times daily December 02, 2021 12:00a m Augus t 2021 11:22 am Docusate Sodium (Colace) 100 mg capsule Discont inued 100 MG PO three times a day December 02, 2021 12:00a m July 17, 2023 8:52p m Use until bowel movements regular Neomycin-Juni itracnzn-Liborio ymyxnb (Neosporin (Madhu-Juni-Liborio ym)) 3.5mg-400 unit- 5,000 unit/gram ointment Discont inued 1 APPLIC ATIO TOPICA L twice a day 28.3 December 02, 2021 12:00a m Octob er 2021 11:54 am Apply to incision site every 12 hours once dressings removed Acetaminophe n (Tylenol Extra Strength) 500 mg tablet Discont inued 1000 MG PO every 6 hr (04,10,16,2 2) as needed for pain December 02, 2021 12:00a m Augus t 2021 11:22 am Grayson.Stoc estrella,Knee,Re g,Smal (T.E.D. Anti-Embolis m Stocking) misc Active 0 .Route 12 2023 1:00am As directed Acetaminophe n (Tylenol Extra Strength) 500 mg tablet Discont inued 1000 MG PO every 6 hr (04,10,16,2 2) as needed for pain September 29, 2022 12:00a m July 17, 2023 8:57p m Phenazopyrid ine (Pyridium) 100 mg tablet Discont inued 100 MG PO three times a day as needed for pain upon urination September 29, 2022 12:00a m Febru aleena 2023 6:24p m Alternative is OTC AZO if Pyridium not covered by your insurance Cephalexin 500 mg capsule Discont inued 500 MG PO four times daily September 29, 2022 12:00a m October 04, 2022 10:03 am Please start 24 hours before Duff removal then complete the remaining capsules after as prescribed Lidocaine-Sk in Cleanser No.37 5 % combo pack,ointmen t and cream Discont inued 1 PKG TOPICA L .prn 85 September 29, 2022 12:00a m October 10, 2022 9:16a m Sennosides (Senna) 8.6 mg Tablet Active 17.2 MG PO BID@08,16 July 17, 2023 12:00a m Acetaminophe n 325 mg Tablet Active 650 MG PO every 4 hours as needed July 17, 2023 12:00a m Acetaminophe n 650 mg Suppository Active 650 MG MT every 6 hr (04,10,16,2 2) as needed July 17, 2023 12:00a m Atorvastatin 20 mg tablet Active 20 MG PO QAM@July 17, 2023 12:00a m Trazodone 50 mg Tablet Active 25 MG PO AT BEDTIME@July 17, 2023 12:00a m Magnesium Hydroxide (Milk Of Magnesia) 400 mg/5 mL Suspension Active 30 ML PO daily as needed July 17, 2023 12:00a m Tamsulosin 0.4 mg capsule Active 0.4 MG PO QAM@July 17, 2023 12:00a m Bisacodyl 10 mg Suppository Discont inued 10 MG MT daily as needed July 17, 2023 12:00a m August 02, 2023 2:23p m Sodium Phosphates (Fleet Enema) 19-7 gram/118 mL Enema Active 118 ML MT daily as needed July 17, 2023 12:00a m Docusate Sodium 100 mg Capsule Active 100 MG PO BID@,20 July 17, 2023 12:00a m Azelastine 137 mcg (0.1 %) aerosol,spra y Active 1 SPRAY NASAL daily as needed July 17, 2023 12:00a m Food Supplemt, Lactose-Redu abdi (Boost Plus) 0.06 gram- 1.5 kcal/mL Liquid Active 237 ML PO TID@08,12,1 6 July 17, 2023 12:00a m Levetiraceta m 500 mg Tablet Discont inued 500 MG PO twice a day 60 30 July 19, 2023 12:00a m August 02, 2023 2:23p m Bisacodyl 10 mg suppository Active 10 MG MT daily as needed August 02, 2023 2:22pm Torsemide 20 mg tablet Discont inued 20 MG PO every morning August 28, 2022 1:28pm September 20, 2022 3:07p m Finasteride 5 mg tablet Active 5 MG PO QAM@August 28, 2022 1:28pm take 1 tablet by mouth once daily Aspirin (Adult Aspirin Regimen) 81 mg tablet,delay ed release (DR/EC) Active 81 MG PO QAM@August 28, 2022 1:36pm Azelastine 137 mcg (0.1 %) aerosol,spra y Discont inued 1 SPRAY NASAL twice a day October 31, 2021 8:22am July 03, 2022 11:18 am administer into each nostril Fluticasone Propionate (Flonase Allergy Relief) 50 mcg/actuatio n spray,suspen peyton Discont inued 1 SPRAY NASAL every 12 hours December 15, 2021 1:12pm July 03, 2022 11:47 am administer into each nostril Sulfamethoxa zole-Trimeth oprim 800-160 mg tablet Discont inued 1 TAB PO every 12 hours 20 r 2021 12:00a m Decem jaime 2021 10:43 am STOP medication if you develop any adverse reaction Sulfamethoxa zole-Trimeth oprim 800-160 mg tablet Discont inued 1 TAB PO every 12 hours 14 7 Decemb er 2021 3:31pm Decem jaime 2021 1:02a m STOP medication if you develop any adverse reaction Sulfamethoxa zole-Trimeth oprim (Bactrim Ds) 800-160 mg tablet Discont inued 1 TAB PO twice a day 14 Decemb er 2021 1:00am Janua ry 2022 11:20 am Finasteride 5 mg tablet Discont inued 5 MG PO daily 90 90 Dece er 2021 2:17pm August 28, 2022 1:28p m take 1 tablet by mouth once daily Azelastine 137 mcg (0.1 %) aerosol,spra y Discont inued 1 SPRAY NASAL twice a day July 03, 2022 11:18a m October 02, 2022 8:27a m administer into each nostril Azelastine 137 mcg (0.1 %) aerosol,spra y Discont inued 1 SPRAY NASAL twice a day October 02, 2022 8:27am Octob er 2022 2:33p m administer into each nostril Sulfamethoxa zole-Trimeth oprim (Bactrim Ds) 800-160 mg tablet Discont inued 1 TAB PO every 12 hours October 04, 2022 12:00a m Octob er 2022 2:28p m Please stop the medication if you develop any rash, allergy or other adverse reaction Lidocaine Hcl 2 % jelly in applicator Discont inued 10 ML INTRAU RETH once as needed for catheter irritation October 10, 2022 9:17am Febru aleena 2023 6:24p m Tamsulosin 0.4 mg capsule Discont inued 0.4 MG PO at bedtime November 27, 2022 8:13am July 17, 2023 8:48p m TAKE 1 CAPSULE Daily Atorvastatin 20 mg tablet Discont inued 20 MG PO at bedtime December 12, 2022 2:01pm July 17, 2023 8:49p m Azelastine 137 mcg (0.1 %) aerosol,spra y Discont inued 1 SPRAY NASALB OTH twice a day Octobe r 2022 2:32pm Decem jaime 2022 11:24 am Azelastine 137 mcg (0.1 %) aerosol,spra y Discont inued 1 SPRAY NASALB OTH twice a day Decemb er 2022 11:24a m July 17, 2023 8:54p m Nitrofuranto in Monohyd/M-Cr yst (Macrobid) 100 mg capsule Discont inued 100 MG PO every 12 hours 03 11July 02, 2023 12:00a m July 17, 2023 8:57p m must administer with a meal/food Amoxicillin 500 mg capsule Active 500 MG PO every 8 hr (,,) September 20, 2023 12:00a m Please stop medication if any adverse reaction Sulfamethoxa zole-Trimeth oprim (Bactrim Ds) 800-160 mg tablet Discont inued 1 TAB PO twice a day 10 October 15, 2023 12:00a m October 20, 2023 12:04 am Immunizations Immunization Event Date Not Given Reason Dose Number [employer] Professor Lot Number Vaccine Information Statement (VIS) Detail Influenza, quadrivalent, adjuvanted March 03, 2023 Shingrix November 21, 2018 Shingrix March 01, 2019 Influenza, MDCK, quadrivalent, PF January 31, 2018 COVID-19 VACC Moderna February 20, 2021 COVID-19 VACC Moderna August 29, 2021 COVID-19 VACC Pfizer May 27, 2020 COVID-19 VACC Pfizer June 19, 2020 COVID-19 Moderna Bivalent Booster January 06, 2022 COVID-19 Moderna Bivalent Booster December 05, 2022 COVID-19 Pfizer Nehemiah pro 12+, 30mcg/0.3mL March 03, 2023 Influenza High Dose, PF 0.5mL January 12, 2015 Influenza High Dose, PF 0.5mL January 15, 2017 Influenza High Dose, PF 0.5mL January 15, 2019 Influenza, high-dose, quad 0.7mL January 19, 2020 Influenza, high-dose, quad 0.7mL February 27, 2022 RSV recombinant, prefusion F, adjuvant May 14, 2023 Tetanus, Diphtheria, Pertussis (Tdap) June 17, 2023 [id number] Procedures Procedure Date Performed Status Urine Culture September 18, 2023 completed Urine Culture September 28, 2023 completed Urine Culture October 12, 2023 completed Relevant Diagnostic Tests and/or Laboratory Data Laboratory Results Test Date/Time Result Interpretation Reference Range Result Comment Performing Site White Blood Count September 07, 2023 4:28pm 4.4 K/mm3 4.0-11.0 [facility] [id number] [address] [place] [address] 21789 White Blood Count October 01, 2023 11:58am 4.2 K/mm3 4.0-11.0 [facility] [id number] [address] [place] [address] 11123 White Blood Count October 11, 2023 3:15pm 4.2 K/mm3 4.0-11.0 [facility] [id number] [address] [place] [address] 95255 Red Blood Count September 07, 2023 4:28pm 4.02 M/uL 4.20-5.80 [facility] [id number] [address] [place] [address] 40145 Red Blood Count October 01, 2023 11:58am 4.03 M/uL 4.20-5.80 [facility] [id number] [address] [place] [address] 39178 Red Blood Count October 11, 2023 3:15pm 3.94 M/uL 4.20-5.80 [facility] [id number] [address] [place] [address] 78167 Hemoglobin September 07, 2023 4:28pm 13.3 gm/dL 12.5-17.0 [facility] [id number] [address] [place] [address] 57122 Hemoglobin October 01, 2023 11:58am 13.1 gm/dL 12.5-17.0 [facility] [id number] [address] [place] [address] 53119 Hemoglobin October 11, 2023 3:15pm 12.9 gm/dL 12.5-17.0 [facility] [id number] [address] [place] [address] 92517 Hematocrit September 07, 2023 4:28pm 39.4 % 37.0-50.0 [facility] [id number] [address] [place] [address] 01625 Hematocrit October 01, 2023 11:58am 38.7 % 37.0-50.0 [facility] [id number] [address] [place] [address] 93100 Hematocrit October 11, 2023 3:15pm 37.6 % 37.0-50.0 [facility] [id number] [address] [place] [address] 99249 Mean Corpuscular Volume September 07, 2023 4:28pm 98.0 FL 80.0-100.0 [facility] [id number] [address] [place] [address] 31509 Mean Corpuscular Volume October 01, 2023 11:58am 96.0 FL 80.0-100.0 [facility] [id number] [address] [place] [address] 28296 Mean Corpuscular Volume October 11, 2023 3:15pm 95.4 FL 80.0-100.0 [facility] [id number] [address] [place] [address] 43855 Mean Corpuscular Hemoglobin Concent September 07, 2023 4:28pm 33.8 % 32-37 [facility] [id number] [address] [place] [address] 56339 Mean Corpuscular Hemoglobin Concent October 01, 2023 11:58am 33.9 % 32-37 [facility] [id number] [address] [place] [address] 64335 Mean Corpuscular Hemoglobin Concent October 11, 2023 3:15pm 34.3 % 32-37 [facility] [id number] [address] [place] [address] 77732 Red Cell Distribution Width September 07, 2023 4:28pm 12.9 % 11.5-16.0 [facility] [id number] [address] [place] [address] 32574 Red Cell Distribution Width October 01, 2023 11:58am 12.7 % 11.5-16.0 [facility] [id number] [address] [place] [address] 68665 Red Cell Distribution Width October 11, 2023 3:15pm 12.6 % 11.5-16.0 [facility] [id number] [address] [place] [address] 44592 Platelet Count September 07, 2023 4:28pm 228 K/uL 140-400 [facility] [id number] [address] [place] [address] 38057 Platelet Count October 01, 2023 11:58am 243 K/uL 140-400 [facility] [id number] [address] [place] [address] 07279 Platelet Count October 11, 2023 3:15pm 214 K/uL 140-400 [facility] [id number] [address] [place] [address] 32156 Mean Platelet Volume September 07, 2023 4:28pm 10.3 FL 8.6-12.5 [facility] [id number] [address] [place] [address] 21618 Mean Platelet Volume October 01, 2023 11:58am 10.2 FL 8.6-12.5 [facility] [id number] [address] [place] [address] 16595 Mean Platelet Volume October 11, 2023 3:15pm 9.9 FL 8.6-12.5 [facility] [id number] [address] [place] [address] 15988 Nucleated Red Blood Cells % (auto) September 07, 2023 4:28pm 0.0 % 0.0-0.7 [facility] [id number] [address] [place] [address] 31636 Nucleated Red Blood Cells % (auto) October 01, 2023 11:58am 0.0 % 0.0-0.7 [place] [id number] [address] [place] [address] 88950 Nucleated Red Blood Cells % (auto) October 11, 2023 3:15pm 0.0 % 0.0-0.7 [facility] [id number] [address] [place] [address] 32080 Neutrophils (%) (Auto) September 07, 2023 4:28pm 68.8 % [facility] [id number] [address] [place] [address] 60937 Neutrophils (%) (Auto) October 01, 2023 11:58am 56.6 % [facility] [id number] [address] [place] [address] 96423 Neutrophils (%) (Auto) October 11, 2023 3:15pm 63.0 % [facility] [id number] [address] [place] [address] 36432 Lymphocytes (%) (Auto) September 07, 2023 4:28pm 16.0 % [facility] [id number] [address] [place] [address] 16957 Lymphocytes (%) (Auto) October 01, 2023 11:58am 17.7 % [facility] [id number] [address] [place] [address] 87419 Lymphocytes (%) (Auto) October 11, 2023 3:15pm 14.7 % [facility] [id number] [address] [place] [address] 16621 Monocytes (%) (Auto) September 07, 2023 4:28pm 12.8 % [facility] [id number] [address] [place] [address] 83164 Monocytes (%) (Auto) October 01, 2023 11:58am 21.0 % [facility] [id number] [address] [place] [address] 54050 Monocytes (%) (Auto) October 11, 2023 3:15pm 16.3 % [facility] [id number] [address] [place] [address] 11068 Eosinophils (%) (Auto) September 07, 2023 4:28pm 1.4 % [place] [id number] [address] [place] [address] 67408 Eosinophils (%) (Auto) October 01, 2023 11:58am 3.3 % [facility] [id number] [address] [place] [address] 42600 Eosinophils (%) (Auto) October 11, 2023 3:15pm 4.6 % [facility] [id number] [address] [place] [address] 40908 Basophils (%) (Auto) September 07, 2023 4:28pm 0.5 % [facility] [id number] [address] [place] [address] 21537 Basophils (%) (Auto) October 01, 2023 11:58am 0.9 % [facility] [id number] [address] [place] [address] 55203 Basophils (%) (Auto) October 11, 2023 3:15pm 0.7 % [facility] [id number] [address] [place] [address] 63083 Immature Granulocyte % (Auto) September 07, 2023 4:28pm 0.5 % [facility] [id number] [address] [place] [address] 26256 Immature Granulocyte % (Auto) October 01, 2023 11:58am 0.5 % [facility] [id number] [address] [place] [address] 82045 Immature Granulocyte % (Auto) October 11, 2023 3:15pm 0.7 % [facility] [id number] [address] [place] [address] 95544 Neutrophils # (Auto) September 07, 2023 4:28pm 3.02 K/uL 1.50-7.50 [facility] [id number] [address] [place] [address] 93800 Neutrophils # (Auto) October 01, 2023 11:58am 2.39 K/uL 1.50-7.50 [facility] [id number] [address] [place] [address] 26401 Neutrophils # (Auto) October 11, 2023 3:15pm 2.62 K/uL 1.50-7.50 [facility] [id number] [address] [place] [address] 69061 Lymphocytes # (Auto) September 07, 2023 4:28pm 0.70 K/uL 1.00-4.50 [facility] [id number] [address] [place] [address] 09296 Lymphocytes # (Auto) October 01, 2023 11:58am 0.75 K/uL 1.00-4.50 [facility] [id number] [address] [place] [address] 14618 Lymphocytes # (Auto) October 11, 2023 3:15pm 0.61 K/uL 1.00-4.50 [place] [id number] [address] [place] [address] 47067 Monocytes # (Auto) September 07, 2023 4:28pm 0.56 K/uL 0.00-0.80 [place] [id number] [address] [place] [address] 53911 Monocytes # (Auto) October 01, 2023 11:58am 0.89 K/uL 0.00-0.80 [id number] [place] [address] 08276 Monocytes # (Auto) October 11, 2023 3:15pm 0.68 K/uL 0.00-0.80 [place] [id number] [address] [place] [address] 21245 Eosinophils # (Auto) September 07, 2023 4:28pm 0.06 K/uL 0.00-0.40 [place] [id number] [address] [place] [address] 27643 Eosinophils # (Auto) October 01, 2023 11:58am 0.14 K/uL 0.00-0.40 [place] [id number] [address] [place] [address] 82394 Eosinophils # (Auto) October 11, 2023 3:15pm 0.19 K/uL 0.00-0.40 [place] [id number] [address] [place] [address] 99882 Basophils # (Auto) September 07, 2023 4:28pm 0.02 K/uL 0.00-0.20 [place] [id number] [address] [place] [address] 09432 Basophils # (Auto) October 01, 2023 11:58am 0.04 K/uL 0.00-0.20 [place] [id number] [address] [place] [address] 73176 Basophils # (Auto) October 11, 2023 3:15pm 0.03 K/uL 0.00-0.20 [place] [id number] [address] [place] [address] 15104 Immature Granulocyte # (Auto) September 07, 2023 4:28pm 0.02 K/uL 0.00-0.10 [facility] [id number] [address] [place] [address] 31898 Immature Granulocyte # (Auto) October 01, 2023 11:58am 0.02 K/uL 0.00-0.10 [facility] [id number] [address] [place] [address] 36200 Immature Granulocyte # (Auto) October 11, 2023 3:15pm 0.03 K/uL 0.00-0.10 [facility] [id number] [address] [place] [address] 67100 Urine Color September 18, 2023 10:51am Yellow Yellow [facility] [id number] [address] [place] [address] 80454 Urine Color September 28, 2023 11:11am Yellow Yellow [facility] [id number] [address] [place] [address] 28852 Urine Color October 12, 2023 4:21pm Yellow Yellow [facility] [id number] [address] [place] [address] 89918 Urine Clarity September 18, 2023 10:51am Clear Clear [facility] [id number] [address] [place] [address] 78536 Urine Clarity September 28, 2023 11:11am Clear Clear [facility] [id number] [address] [place] [address] 87509 Urine Clarity October 12, 2023 4:21pm Clear Clear [facility] [id number] [address] [place] [address] 31675 Urine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 Non-visit [facility] September 07, 2023 3:01pm September 07, 2023 12:00am [facility] September 07, 2023 4:16pm September 07, 2023 12:00am Iván Henderson MD [facility]-Specimen - [facility] September 18, 2023 5:51pm September 18, 2023 12:00am Nayan Shoemaker MD Departed [facility]-Cerebral Studies September 20, 2023 1:01pm September 20, 2023 12:00am Iván Henderson MD Non-patient / Non-visit [facility]Sleep Mgmt Disorders of [facility] September 20, 2023 11:59pm MALAIKA BRADFORD MD Departed [facility]-Cardiovas cular - Alejandro (MAC) September 28, 2023 2:54pm September 28, 2023 12:00am Iván Henderson MD Non-patient / Non-visit [facility]-[place] re Surgical of [facility] September 28, 2023 3:00pm [facility] 28, 2023 5:27pm September 28, 2023 12:00am [facility] [place] October 01, 2023 11:58am October 01, 2023 12:00am Winifred Dorsey MD Non-patient / Non-visit [facility]-Neurology of [facility] October 04, 2023 2:32pm October 04, 2023 12:00am [facility] [place] October 11, 2023 3:14pm October 11, 2023 12:00am Iván Henderson MD Dep[facility]-Specimen - [place] October 12, 2023 5:24pm October 12, 2023 12:00am Giancarlo Meeks CNP Non-patient / Non-visit [facility]-Neurology of [facility] - [facility] October 19, 2023 3:29pm October 19, 2023 12:00am Iván Henderson MD Departed [facility]-Radiology - [facility] November 07, 2023 3:43pm November 07, 2023 12:00am Sandra Schafer NP Non-patient / Non-visit [facility]-Cardiolog y of [facility] November 21, 2023 3:07pm LUZ Wong Recent Diagnosis Onset Date Admit Date Seizure September 07, 2023 3 :01pm Stroke September 07, 2023 3 :01pm Seizure October 04, 2023 2:32pm Stroke October 04, 2023 2:32pm Seizure October 19, 2023 3:29pm Hyperlipidemia November 21, 2023 3:07pm Hypertension November 21, 2023 3:07pm Mitral regurgitation November 21, 2023 3:07pm Mitral valve prolapse November 21, 2023 3:07pm Pulmonary hypertension, unspecified November 21, 2023 3:07pm Two-vessel coronary artery disease November 21, 2023 3:07pm Assessments Diagnosis Onset Date Resolution Status Admit Date Seizure noneactive September 07, 2023 3:01pm Stroke noneactive September 07, 2023 3:01pm Seizure noneactive October 03 2:32pm Stroke noneactive October 03 2:32pm Seizure noneactive October 18 3:29pm Hyperlipidemia noneactive November 21, 2023 3:07pm Hypertension noneactive November 20, 2 024 3:07pm Mitral regurgitation noneactive November 21, 2023 3:07pm Mitral valve prolapse noneactive Oct 3:07pm Pulmonary hypertension, unspecified noneactive November 21, 2023 3:07pm Two-vessel coronary artery disease noneactive November 21, 2023 3:07pm Plan of Treatment Future Tests Future scheduled test information is unavailable Pending Tests Test Name Ordered Date Scheduled Date VTE Risk Assessment Medical June 17, 2023 6:39pm June 17, 2023 6:39pm VTE Risk Assessment Medical July 17, 2023 1:0 2pm July 17, 2023 1:02pm Future Visits Future appointment information is unavailable Referrals to Other Providers Reason for Referral Referral Start Date Provider Provider Contact Information Provider Address I34.0 - Nonrheumatic mitral (valve) insufficiency,I34.1 - Nonrheumatic mitral (valve) prolapse,I25.10 - Atherosclerotic heart disease of [place] coronary artery without angina pectoris November 21, 2023 Gopal Barnett MD Work Phone: [address] [place] [phone] Winifred Dorsey MD Work Phone: [address] [facility] INTERNAL [facility] [address] Winifred Dorsey MD Work Phone: [address] [facility] INTERNAL [facility] [phone] Winifred Dorsey MD Work Phone: [address] [facility] INTERNAL [facility] [phone] Winifred Dorsey MD Work Phone: [address] [facility] INTERNAL [facility] [address] Shanelle Gonzales MD Work Phone: [address] [facility] Urology [facility] [phone] Future Procedures Procedure Name Ordered Date Scheduled Date CV MCOT or event monitor 30 June 20 9:54am June 20, 2023 9:54am Admit Order June 17, 2023 6:07pm Febru aleena 2023 6:07pm Discharge Order June 20, 2023 12:33pm Febr uary 2023 12:33pm Pt may request lower dose/strength analgesic June 17, 2023 6:07pm June 17, 2023 6:07pm Admit Order July 17, 2023 12:12pm June 222023 12:12pm Discharge Order July 21, 2023 8:54am July 202023 8:54am Pt may request lower dose/strength analgesic July 17, 2023 12:12pm July 17, 2023 12:12pm ED Cardiac Monitoring June 22, 2023 9:22pm [facility] 2023 9:22pm Discharge per unit specific guidelines February 26, 2023 2:47pm February 26, 2023 2:47pm Future Medications Future medication information is unavailable Patient Instructions Instruction Admit Date Indwelling Urinary Catheter Care, Adult Acute Urinary Retention, Male July 08, 2023 3:22pm Levetiracetam Tablets July 17, 2023 1 2:12pm Hospital Discharge Instructions Ambulatory Orders* Follow Up 6 Months Time Frame: 11/21/23, Location: None Selected
--- OUTSIDE RECORDS SUMMARY | 2023-12-12 06:10 | XMS_ITS ---
Author Organization [facility] Address [address] [place] [address] Care Team Providers Care Oyster Culturist Name Role Phone Winifred Dorsey Primary Care Provider REASON FOR VISIT [facility] physician order Encounters Encounter Location Date Provider Diagnosis [facility] [address] [address] 09/28/2023 Winifred Dorsey PLAN OF TREATMENT Next Appt Details Provider Name:Winifred Dorsey, 01/25/2024 03:00:00 PM, [address] [place] [address], [id number], Progress Notes * ANN PEREYRADOB: [birth year] (83 yo M)Acc No.[id number]:09/28/2023 Patient:??ANN PEREYRA :1940?Age:83 Y?Sex:Marilee jj Address:[address] [place] [address] * true * Date:??
--- OUTSIDE RECORDS SUMMARY | 2023-12-12 06:10 | XMS_ITS | Continuity of Care Document ---
Author Organization [facility] Address [address] [place] [address] [address], [address] [place] [address]- Care Team Providers Care Environmental Sampling Technician Name Role Phone Winifred Dorsey MD Primary Care Physician [phone] Encounter [facility] Date(s): 06/20/23 - 08/01/23 [facility] Thoracic Surgery [address] [place] [address] Drive [address] [place], [place] [address] [[email or web address] Attending Physician: Drake Mcrae DO Allergies, Adverse [...] mL, 0 Refills, Maintenance, 11/28/22 15:04:00 EDT, [place], Partial fill upon patient request if the [...] Maintenance, 04/13/23 12:41:00 EST,Route to Pharmacy Electronically, [facility], Partial fill upon patient [...] Care Nurse Name: Fabiola Fontanez NP Position: [facility] Associate Professional Member Role: Lifetime Consulting Provider Address: Address: [address] [place] [address] [facility] [address] Name: Jason Link MD Position: [facility] Renal MD Member Role: Lifetime Consulting Physician Address: Address: [address] [place] [address] [facility] [address] Name: Mariela Golden Position: S RN Member Role: Primary Care Nurse Name: Juan Carlos Gilbert RN Position: S RN Member Role: Primary Care Nurse Name: Winifred Dorsey MD Position: Reference Physician Member Role: PCP Address: Address: [address] [place] [address] [place] [address] [place] Care Team Related Persons Name: YANNICK PEREYRA Address: home [address] [place] [address]
--- OUTSIDE RECORDS SUMMARY | 2023-12-12 06:10 | XMS_ITS | Continuity of Care Document ---
Author Organization [facility] Address [address] [place] [address] Phone Care Team Providers Care Mine Safety Engineer Name Role Phone Sunita Winifred Primary Care Provider [phone] Winifred Dorsey Referring Provider Debbie Hernandez Attending Provider [phone] Care Teams Patient Care Team Team Status: Active Member Role Status Dates Winifred Dorsey Primary Care Provider Active Patient Care Team Team Status: Active Member Role Status Dates Winifred Dorsey Primary Care Provide r, Referring Provider Active Start: November 21, 2023 LUZ Wong Attending Provider Active St art: November 21, 2023 Chief Complaint and Reason for Visit Chief Complaint Admit Date 4 mth FU November 21, 2023 3:07 pm Reason for Visit Admit Date Hyperlipidemia November 21, 2023 3:07 pm Hypertension [...] Response Patient Sex Male November 21, 2023 4:06pm Assigned Sex Male 1940 Family History Relationship [...] hr Active 25 MG PO QAM@08 30 Dece er 2019 1:00am Finasteride 5 mg tablet Discont inued 1 MG PO daily [facility] 2019 1:00am September 15, 2021 2:56p m take 1 tablet by mouth once daily Amlodipine 10 mg tablet Active 10 MG PO QAM@08 90 [facility] 2019 1:00am Tamsulosin 0.4 mg capsule Discont inued 1 MG PO daily 0 [facility] 2019 1:00am September 15, 2021 2:56p m TAKE 1 CAPSULE Daily Lorazepam 0.5 mg tablet Discont inued 0 .ROUTE .COMPLEX [facility] 2019 1:00am July 21, 2022 11:08 am LORazepam 0.5 MG Oral Tablet Eiyh-Empdt-Y in-U8-Utuw-C al Bor 750 mg-100 mg- 25 mcg tablet Discont inued 0 .ROUTE .COMPLEX July 13, 2021 12:00a m Febru aleena , 2024 6:24p m as directed Mecobalamin (Vitamin B12) 1,000 mcg tablet,chewa ble Discont inued 1000 MCG PO daily July 13, 2021 12:00a m Octob er 2021 11:56 am Cholecalcife rol (Vitamin D3) 25 mcg (1,000 unit) capsule Active 1000 UNIT PO QAM@July 13, 2021 12:00a m Beta Carotene 10,000 unit capsule Discont inued [address] UNIT PO once July 13, 2021 12:00a m Octob er 2021 12:00 pm administer with a meal Lutein 20 mg capsule Discont inued 20 MG PO daily July 13, 2021 12:00a m [facility]2023 6:24p m give with meal/snack Melatonin 3 mg capsule Discont inued 6 MG PO at bedtime as needed July 13, 2021 12:00a m July 17, 2023 8:57p m Lycopene 10 mg capsule Discont inued 10 MG PO daily July 13, 2021 12:00a m [facility] 2023 6:24p m administer after a meal Coenzyme Q10 (Co Q-10) 100 mg capsule Active 100 MG PO QAM@July 13, 2021 12:00a m Fluticasone Propionate (Flonase [...] tablet Discont inued 1 MG PO daily September 15, 2021 2:54pm Decem 2021 11:13 am take 1 tablet by mouth once daily Tamsulosin 0.4 mg capsule Discont inued 0.4 MG PO at bedtime 90 September 15, 2021 2:55pm Decem jaime [...] 1 TAB PO every 12 hours 09 02November 20, 2022 12:00a m Augus t 2022 12:03 am Magnesium Hydroxide (Milk Of Magnesia) 400 mg/5 mL suspension Discont inued 5 ML PO daily as needed Octobe r 2022 12:00a m Febru aleena2023 9:59a m Sulfamethoxa zole-Trimeth oprim (Bactrim Ds) 800-160 mg tablet Discont inued 1 TAB PO every 12 hours 20 Janobe r 2022 2:27pm Novem jaime 2022 12:05 am Please stop the medication if you develop any rash, allergy or other adverse reaction Polyethylene Glycol 3350 (Miralax) 17 gram/dose powder Active 17 GM PO BID@08,16 2023 1:00am Clopidogrel 75 mg tablet Active 75 [...] for pain December 02, 2021 12:00a m Novus t 2021 11:22 am Grayson.Stoc estrella,Knee,Re g,Smal (T.E.D. Anti-Embolis m Stocking) misc Active 0 .Route 2023 1:00am As directed Acetaminophe n (Tylenol [...] n 650 mg Suppository Active 650 MG NM every 6 hr (04,10,16,2 2) as needed [...] 10 mg Suppository Discont inued 10 MG NM daily as needed July 17, 2023 12:00a m August 02, 2023 2:23p m Sodium Phosphates (Fleet Enema) 19-7 gram/118 mL Enema Active 118 ML NM daily as needed July 17, 2023 12:00a m Docusate Sodium 100 mg Capsule Active 100 MG PO BID@08,20 July 17, 2023 12:00a m Azelastine 137 mcg (0.1 %) aerosol,spra y Active 1 SPRAY NASAL daily as needed July 17, 2023 12:00a m Food Supplemt, Lactose-Redu abdi (Boost Plus) 0.06 gram- 1.5 kcal/mL Liquid Active 237 ML PO TID@08,12,1 July 17, 2023 12:00a m Levetiraceta m 500 mg Tablet Discont inued 500 MG PO twice a day 60 July 19, 2023 12:00a m August 02, 2023 2:23p m Bisacodyl 10 mg suppository Active 10 MG NM daily as needed August 02, 2023 2:22pm [...] PO twice a day 14 Decemb er 8th, 2022 1:00am Janua ry 2022 11:20 am Finasteride 5 mg tablet Discont inued 5 MG PO daily 90 Decemb er 2021 2:17pm August 28, 2022 1:28p [...] inued 0.4 MG PO at bedtime 90 November 27, 2022 8:13am July 17, 2023 8:48p m TAKE 1 CAPSULE Daily Atorvastatin 20 mg tablet Discont inued 20 MG PO at bedtime December 12, 2022 2:01pm July 17, 2023 8:49p m Azelastine 137 mcg (0.1 %) aerosol,spra y Discont inued 1 SPRAY NASALB OTH twice a day 30 Octobe r 2022 2:32pm Decem jaime 2022 11:24 am Azelastine 137 mcg (0.1 %) aerosol,spra y Discont inued 1 SPRAY NASALB OTH twice a day 30 Decemb er 2022 11:24a m July 17, 2023 8:54p m Nitrofuranto in Monohyd/M-Cr yst (Macrobid) 100 mg capsule Discont inued 100 MG PO every 12 hours 14 7 July 02, 2023 12:00a m July 17, 2023 8:57p m must administer with a meal/food Amoxicillin 500 mg capsule Active 500 MG PO every 8 hr (06,14,22) September 20, 2023 12:00a m Please stop medication if any adverse reaction Sulfamethoxa zole-Trimeth oprim (Bactrim Ds) 800-160 mg tablet Discont inued 1 TAB PO twice a day 10 October 15, 2023 12:00a m October 20, 2023 12:04 am Immunizations Immunization Event Date Not Given Reason Dose Number [employer] Teacher Lot Number Vaccine Information Statement (VIS) Detail [...] Diphtheria, Pertussis (Tdap) June 17, 2023 [id number] Vital Signs Vital Reading Result Reference Range Collection Date/Time Height 68 [in_i] November 21, 2023 3:08pm Weight 59.98 kg November 21, 2023 3:08pm Heart Rate 54 /min 50-90 November 21, 2023 3:08pm Oxygen saturation by Pulse oximetry 97 % 90-10 0 November 21, 2023 3:08pm BP Systolic 134 mm[Hg] 90-130 November 21, 2023 3:08pm BP Diastolic 60 mm[Hg] 60-90 November 21, 2023 3:08pm BMI (Body Mass Index) 20.1 kg/m2 October 232023 3:08pm Insurance Providers Guarantor Artemio Gallego Address [address] [facility] [address] Contact Info. Home Phone: Payer Policy Id Coverage Id Subscriber's Name Subscriber Id Effective Date Expiration Date [place] [id number] Artemio Gallego [id number] 2013 Medicare A & B [id number] Artemio Gallego [id number] 2003 Encounters Encounter Location(s) Arrival/Admit Date Discharge/Depart Date Provider(s) Non-patient / Non-visit [facility] November 21, 2023 3:07pm LUZ Wong Recent Diagnosis Onset Date Admit Date Hyperlipidemia November 21, 2023 3:07pm Hypertension November 21, 2023 3:07pm Mitral regurgitation November 21, 2023 3:07pm Mitral valve prolapse November 21, 2023 3:07pm Pulmonary hypertension, unspecified November 21, 2023 3:07pm Two-vessel coronary artery disease November 21, 2023 3:07pm Assessments Diagnosis Onset Date Resolution Status Admit Date Hyperlipidemia noneactive November 21, 2023 3:07pm Hypertension [...] (valve) prolapse,I25.10 - Atherosclerotic heart disease of [place] coronary artery without angina pectoris November 21, 2023 Gopal Barnett MD Work Phone: [phone] [address] Winifred Dorsey MD Work Phone: [address] [address] Winifred Dorsey MD Work Phone: [address] [facility] [address] Winifred Dorsey MD Work Phone: [address] [facility] [address] Winifred Dorsey MD Work Phone: [address] [address] Shanelle Gonzales MD Work Phone: [phone] [facility] Urology [facility] [address] Future Procedures Procedure Name Ordered Date Scheduled Date CV MCOT or event monitor 30 da June 20 9:54am June 20, 2023 9:54am [...] ED Cardiac Monitoring June 22, 2023 9:22pm [facility] 2023 9:22pm Discharge per unit specific guidelines [...]
--- OUTSIDE RECORDS SUMMARY | 2023-12-12 06:10 | XMS_ITS | Continuity of Care Document ---
Author Organization [facility] Address [address] [place] [address], [address] [place] [address]- Care Team Providers Care Station Installer Name Role Phone Winifred Dorsey MD Primary Care Physician Encounter [facility] [place] Date(s): 12/19/22 - 12/26/22 [facility] Thor[facility] Surgery [address] [place] [address], [address] [place], [place] [address] Attending Physician: Drake Mcrae DO [...] mL, 0 Refills, Maintenance, 11/28/22 15:04:00 EDT, [place], Partial fill upon patient request if the [...] Reference Physician Member Role: PCP Address: Address: [address] [place] [address] [place] [address] [place] Care Team Related Persons Name: YANNICK PEREYRA Address: home [address] [place] [address]
--- OUTSIDE RECORDS SUMMARY | 2023-12-12 06:10 | XMS_ITS | Continuity of Care Document ---
Author Organization [facility] ter Address [address] [place] [id number]- Care Team Providers Care Concession Stand Attendant Name Role Phone Winifred Dorsey MD Primary Care Physician Encounter [facility] Date(s): 04/13/23 - 04/13/[address] [id number] Discharge Disposition: A-D/C Home Attending Physician: Gopal Kraft MD Admitting Physician: Gopal Kraft MD Referring Physician: Valentin Munoz MD Allergies, Adverse Reactions, Alerts Substance Reaction [...] mL, 0 Refills, Maintenance, 11/28/22 15:04:00 EDT, [place], Partial fill upon patient request if the [...] Maintenance, 04/13/23 12:41:00 EST,Route to Pharmacy Electronically, [id number], Partial fill upon patient [...] Most recent to oldest [Reference Range]: 1 2 3 Height 173 cm (04/13/23 9:00 AM) Weight 62 kg (04/13/23 9:00 AM) Oxygen Saturation [94-100 %] 94 % (04/13/23 4:00 PM) 94 % (04/13/23 3:30 PM) 94 % (04/13/23 3:00 PM) Pulse Rate [55-90 bpm] 52 bpm *L* (04/13/23 9:00 AM) Body Mass Index [18.5-24.99 kg/m2] 20.72 kg/m2 (04/13/23 9:00 AM) Blood Pressure [90-138/55-84 mm Hg] 151/74mm Hg *H* (04/13/23 4:00 PM) 154/75mm Hg *H* (04/13/23 3:30 PM) 148/84mm Hg *H* (04/13/23 3:00 PM) Respiratory Rate [16-30 br/min] 20 br/min (04/13/23 4:00 PM) 19 br/min (04/13/23 3:30 PM) 16 br/min (04/13/23 3:00 PM) Temperature [96.8-100.4 DegF] 97.4 DegF (04/13/23 9:00 AM) Mode of Delivery (Oxygen) Room air (04/13/23 4:00 PM) Room air (04/13/23 3:30 PM) Room air (04/13/23 3:00 PM) Blood pressure sites Arm, left (04/13/23 4:00 PM) Arm, left (04/13/23 3:30 PM) Arm, left (04/13/23 3:00 PM) Temperature Route Temporal (04/13/23 9:00 AM) Dry Weight 62 kg (04/13/23 9:00 AM) Weight Obtained Via Standing scale (04/13/23 9:00 AM) Dry Weight Obtained Via Standing scale (04/13/23 9:00 AM) Social History Social History Type Response Smoking Status Former smoker, quit more than 30 days ago; Other: quit 1970; 0.5 ppd x 15 years; entered on: 11/28/22 Sex Cardiac catheterization study * Event Display: Cardiac Hydro Generation Manager Report Authored Date: * Event Display: Cardiac Hydro Generation Manager Report Authored Date: Cardiac Diagnostic + PCI Report Demographics Patient Name CLOTHIER ANN Gender Male [employer] Room Number [id number] Height 68.11 inches Date of 1940 Weight 136.69 pounds Age 83 year(s) BSA 1.74 m2 Accession Number [id number] BMI 20.72 kg/m2 Referring Physician Swapnil Herron Date of Study 04/13/2023 Performing Physician Swapnil Herron Fellow Sharda Chen MD Interventional Swapnil Herron Physician Procedure Procedure Type Diagnostic procedure:Coronary Angiography with [facility] PCI procedure:Coronary IVUS, Stent (Drug Eluting) Miscellaneous:ACT ACC Diagnostic Catheterization Status:Elective Indications Indications: Coronary artery disease. Clinical History Admission Medications + +------+-------+ + + +---------+ !Medication !Dosage!Times !Last !Last !Administered !Comments ! ! ! !Per Day!Delivery !Delivery ! ! ! ! ! ! !Date !Time ! ! ! + +------+-------+ + + +---------+ !Aspirin (any)!81 mg !x 1 !04/13/2023 !02:00 ! ! ! + +------+-------+ + + +---------+ !Beta Charlette ! ! ! ! ! ! ! !(any) ! ! ! ! ! ! ! + +------+-------+ + + +---------+ !Calcium ! ! ! ! ! ! ! !Channel ! ! ! ! ! ! ! !Charlette ! ! ! ! ! ! ! + +------+-------+ + + +---------+ !Statin (any) ! ! ! ! ! ! ! + +------+-------+ + + +---------+ Procedure Data Procedure Date Date: 04/13/2023Start: 11:04End: 12:44 The procedure was explained in detail to the patient. Risks, complications and alternative treatments were reviewed. Written consent was obtained. Entry Locations - Retrograde Percutaneous access was performed through the Right Radial artery (Primary location). A 6 Fr sheath was inserted. Hemostasis was successfully obtained using TR Band. Procedure Medications - Versed (Midazolam) I.V. 1 mg. - Fentanyl I.V. 50 mcg. - Lidocaine 2% S.C. Right Wrist 2 ml. - Verapamil I.A. 2.5 mg. - Heparin I.V. 6500 units. - Heparin I.V. 2000 units. - 0.9NS I.V. bolus 310 ml. Sedation: My intra-service moderate sedation time was: from 1118 to 2130. Refer to procedural log for detailed chronological information. Contrast Material - Omnipaque 55 ml Diagnostic Catheters - A6F JR 4.0 LAUNCHER GUIDING CATHETERwas used for: Left heart catheterization. - A6F JR 4.0 LAUNCHER GUIDING CATHETERwas used for: Right coronary angiography. - A6F JR 4.0 LAUNCHER GUIDING CATHETERwas used for: PCI. - A7F HSE139 LAUNCHER CATHETERwas used for: Left coronary angiography. - A7F BCI477 LAUNCHER CATHETERwas used for: PCI. Fluoroscopy Time: PCI: 19:16 minutes. Total: 19:16 minutes. Fluoroscopy Dose: PCI: 248 mGy. Total: 248 mGy. Dose Area Product:PCI: 89502 mGy/cm2. Total: 78467 mGy/cm2. Procedure Narrative Procedures: Moderate sedation (42081) [facility] + coronary angiogram (87970) IVUS initial vessel (+31734) IVUS additional vessel (+75781) PCI stent major vessel (40648) x2 -- LAD and RCA Indication: Obstructive CAD on outside [facility], abnormal stress test Access: Right radial artery Closure: Radial compression band Anesthesia: Moderate sedation (duration of dedicated time >15 minutes, approximate times documented by procedure monitor) Catheters: 6 Fr JR4 guide, 7 Fr EBU 3.75 guide Anticoagulation: Unfractionated heparin Findings (physician interpretation): LM: luminal irregularities LAD: proximal LAD 70% calcified stenosis LCx: luminal irregularities RCA: proximal RCA 90% calcified stenosis LVEDP: 7 mmHg AV gradient: None LHC/Cors: Informed consent had been discussed and obtained prior to initiating the procedure. The patient was brought to the cardiac catheterization laboratory. Following the usual sterile prepping and draping, the access site was infiltrated with 1% Lidocaine to provide local anesthesia. Vascular sheath was placed. Coronary catheters were then advanced over a wire to the central circulation, aspirated, flushed. Pressures were obtained and then they were used to engage coronary arteries for selective angiography, in multiple views. All devices were then ultimately removed at the conclusion of the case. RCA PCI/IVUS: The coronary artery was cannulated using the guide catheter and the lesion was wired with a coronary guidewire on heparin. IVUS was performed; vessel sized and plaque morphology assessed. The lesion was predilated using a 3.0x15 mm NC balloon. Following pre-dilatation, a 40x32 mm Megatron ASHLEE was deployed. The result was angiographically and IVUS-ly excellent with 0% residual stenosis. LAD PCI/IVUS: The coronary artery was cannulated using the guide catheter and the lesion was wired with a coronary guidewire on heparin. D1 was wired for protection. IVUS could not be passed. The lesion was predilated using a 3.0x15 mm NC balloon. IVUS was performed; vessel sized and plaque morphology assessed. Following pre-dilatation, overlapping 2.75x30 mm and 3.5x30 mm Truong were deployed. After deployment, the proximal portion of the distal stent was post-dilated with the proximal stent delivery balloon. The result was angiographically and IVUS-ly excellent with 0% residual stenosis. Angiographic Findings Cardiac Arteries and Lesion Findings LAD: Lesion in Mid LAD: Mid subsection.85% stenosis 12 mm length. Pre procedure ANA LILIA III flow was noted. Culprit lesion.Bifurcation lesion. Lesion in Dist LAD: 80% stenosis 22 mm length. RCA: Lesion in Prox RCA: 90% stenosis 15 mm length. Pre procedure ANA LILIA II flow was noted. Culprit lesion.Bifurcation lesion. Hemodynamics Condition: Rest O2 Consumption: Estimated: 189.93Heart Rate: 58 bpm Pressures (mmHg) +-----+ + !Site !Pressure ! +-----+ + !LV !102/3 ,7 ! +-----+ + !AO !92/46 (64)! +-----+ + !LV !100/0 ,4 ! +-----+ + Valve Gradients and Areas +------+----+----+----+-----+----+------+ !Valve !Peak!Mean!Area!Index!Flow!Source! +------+----+----+----+-----+----+------+ !Aortic!8 !0 ! ! ! ! ! +------+----+----+----+-----+----+------+ !Aortic!8 !0 ! ! ! ! ! +------+----+----+----+-----+----+------+ Shunts Oxygen Values O2 Consumption 189.93 Interventional Procedure Cardiac lesions LAD: Lesion in Mid LAD: Mid subsection.85% stenosis 12 mm length. Pre procedure ANA LILIA III flow was noted. Culprit lesion.Bifurcation lesion. Devices used - 3.8pba73mr MR NC EMERGE BALLOON. Diameter: 3 mm. Length: 15 mm. 1 inflation(s) - 2Sh219km RX STEBBINS EYE MCGRATH DIGITAL IVUS CATHETER. Number of passes: 1. - 2.75 x 30mm VESNA FRONTIER RX CORONARY STENT SYSTEM. 1 inflation(s) to a max pressure of: 14 gonzález. - Balloon of 3.5 x 30mm VESNA FRONTIER RX CORONARY STENT SYSTEM. 1 inflation(s) to a max pressure of: 16 gonzález. Lesion in Dist LAD: 80% stenosis 22 mm length. Devices used - 3.5 x 30mm VESNA FRONTIER RX CORONARY STENT SYSTEM. 1 inflation(s) to a max pressure of: 14 gonzález. RCA: Lesion in Prox RCA: 90% stenosis 15 mm length. Pre procedure ANA LILIA II flow was noted. Culprit lesion.Bifurcation lesion. Devices used - .[address] PROWATERFlex GUIDEWIRE. Number of passes: 1. - 6On915ma RX STEBBINS EYE MCGRATH DIGITAL IVUS CATHETER. Number of passes: 2. - 3.2tqx13df MR NC EMERGE BALLOON. Diameter: 3 mm. Length: 15 mm. 1 inflation(s) to a max pressure of: 20 gonzález. - 4.4fgu57zw MR SYNERGY MEGATRON ASHLEE. Diameter: 4 mm. Length: 32 mm. 1 inflation(s) to a max pressure of: 12 gonzález. - 4.0fsh77al MR NC EMERGE BALLOON. Diameter: 4 mm. Length: 20 mm. 2 inflation(s) to a max pressure of: 20 gonzález. Conclusions Interventional Summary - proximal LAD 70% calcified stenosis Tx/w PCI ASHLEE - proximal RCA 90% calcified stenosis Tx/w PCI ASHLEE x2 - LVEDP 7 mmHg - AV gradient: None Complications: None Specimens: None EBL: 10 mL Interventional Recommendations - ASA 81 mg daily lifelong - clopidogrel 75 daily for 1 year post-PCI (through 04/13/24) - maximal medical therapy for CAD per guidelines including high-dose statin, ARB or MADAY inhibitor, and beta charlette - radial compression band for 2 hours - hydration: normal saline for 4 hours per POSEIDON protocol Gopal Kraft MD, MS, FACC, FSCAI, FSVM, RPVI Director, Cardiac Catheterization Supervisor Counseling And Guidance, Cardiovascular Clinical Research [facility] [email or web address]: [place] [address] Signatures Note * Event Display: Hemodynamic Procedure Report Authored Date: * Iván Louise: PERFORM, SIGN, VERIFY Event Display: Cardiac Rehab Note Authored Date: Patient: ANN PEREYRA Age: 83 years Sex: Male : 1940 Associated Diagnoses: None Author: Iván Louise Diagnosis Cardiac Rehab Diagnosis: S/P ASHLEE LAD, S/P ASHLEE X2 RCA. Pre-exercise Vitals Vital Signs: 60 HR, 140/80 BP Supine, 95% RA SaO2. Vital Signs Comment: Reviewed in CIS, RN informed of Vital Sign changes. Pre-exercise Physical Examination Neurologic: alert & oriented. Cardiovascular: heart rate regular. Lungs: Cough no. Activity Transfers: Pt on bedrest. Patient Education Education: Patient alone, Written material included, Stent card reviewed. Education topic Teachback comprehension 75% Topic: Pathophysiology, Lipid management, Medication education, Role of exercise, Home activity guidelines/limits. Reinforcement needed: Medication education, Home activity guidelines/limits. Recommendation and Plan Outpatient follow up recommended: Pt declines. Cardiac Rehab: Will sign off at this time, Pt is a same day DC. Recommendation comment: RN notified of plan. * Ellen Fernando: PERFORM Event Display: Discharge/Transfer Note Hospital Authored Date: [id number] Nursing Discharge Note Entered On: 04/13/2023 16:35 EST Performed On: 04/13/2023 16:34 EST by Ellen Fernando Nursing Discharge Note 2 Discharge Time : 04/13/2023 16:34 EST Discharge Level of Care at Discharge : Home/[facility] Patient Left Unit Via : Wheelchair Patient Accompanied Off Unit with : Responsible adult DC Instructions Provided & Signed by Pt : Yes Patient Understands D/C Instructions : Yes Patient Instructions Discharge Signed : Yes Discharge Comments : d/c papers reviewed and signed. IVs discontinued. pt left unit in wheelchair with PCT Did Pt have Specialty Bed or Wound Vac : No Ellen Fernando - 04/13/2023 16:34 EST * Ellen Fernando: PERFORM Event Display: Patient Education/Instruction Authored Date: [id number] Inpatient Adult Discharge Instructions [address] [address] Name: ANN PEREYRA : 1940 Visit: 04/13/2023 08:37:00 Current Date: 04/13/2023 14:09 Account: [id number] Inpatient Adult Discharge Instructions We would like to thank you for allowing us to assist you with your healthcare needs. The following includes patient education materials and information regarding your injury/illness. Our entire staffstrives to provide an excellent experience for our patients and their families. PLEASE ENSURE YOU FOLLOW-UP PER THE INSTRUCTIONS BELOW! ?? YOUR OPINION IS IMPORTANT TO US! Please complete the survey you may receive by mail or email. Your feedback will be used to make improvements to the healthcare experiences of our patients and their families. Surveys are administered by [employer] ?? If further treatment with your primary care physician or another doctor is recommended, it is important for you to keep the appointment. Call your primary care physician or return to the Emergency Department immediately if your condition worsens, fails to improve, or new symptoms develop. If you need to find a doctor, you can call [facility] Link for a referral at [phone] or toll free at [phone] or log in to [email or web address].. ?? [facility], in keeping with [facility] guidance, no longer requires face masks for staff, patientsor visitors in most situations. Similiar to time spent indoors at other locations, there is the chance that you were exposed to repiratory viruses during your time with us (such as flu or COVID-19). If you develop symptoms concerning for a viral respiratory infection, please seek testing (and treatment if indicated) from your medical provider or home test kit. ?? You can view and manage your care through the patient portal or by using a health care hazel of your choosing. [employer] is a website that allows you to securely view your medical information including your hospital discharge summary, office visit summaries, medications and follow-up visits. You can also request appointments, renew medications, and request access to your medical information using a health care hazel of your choosing, or just ask a question. You can enroll at [email or web address] or register during your next office visit. You have been discharged from [facility], Patient Care Unit: CARE. If you have any questions regarding these instructions after you leave, please call us and we will be happy to assist you. [facility] Your Care Team Attending Physician Swapnil MCKNIGHT, Gopal Mondragon Discharging Providers Sharda Chen MD Reason for Admission CAD DEFINITE PCI HV2 [id number] Tests Performed Below is a partial list of the tests performed during your hospitalization. You may have had other tests and procedures not included in this list. Please discuss all test results with your provider. BUN Calcium Level CBC Creatinine Glucose Level [place] Primary Care Provider Winifred Dorsey MD Advance Directive Health Care Proxy on File No Discharge Vitals Temperature: 97.4 DegF Height: 173 cm Pulse Rate:??52 bpm??Low Weight: 62 kg Respiratory Rate: 17 br/min Body Mass Index: 20.72 kg/m2 Systolic Blood Pressure:??142 mm Hg??High Body surface area: 1.73 Diastolic Blood Pressure: 80 mm Hg ?? Oxygen Saturation:??91 %??Low ?? Studies Pending All tests and labs ordered during this hospital stay have been completed unless listed below. Please discuss all pending results with your provider listed above in these instructions. ?? No incomplete studies found What to do next Instructions From Your Doctor Discharge Orders Instructions from your Care Team if you have questions or concerns after discharge, you can call the CARE unit at [phone] Scheduled Follow-Up Appointments 2023 9:00 AM EST ?? Where: [facility] OR Status: Pending You Need to Schedule the Following Appointments Follow Up with??Alexander MCKNIGHT, Valentin Castellanos When:??Within 1 to 2 weeks Where: [address] [place] [id number]- Discharge Medications ANN PEREYRA :1940 Visit Date:04/13/2023 Medications: Please continue your medications until treatment is completed or stopped by your provider. Medications not listed below should be discontinued. Discuss any questions related to medications with your provider. What How Much When Instructions Next Dose New Clopidogrel (clopidogrel 75 mg oral tablet) 75 Milligram Oral Daily Refills: 3 Pickup at [facility] start tomorrow AM Unchanged Amlodipine (amLODIPine 10 mg oral tablet) 1 tab(s) Oral Daily continue taking as prescribed Unchanged ascorbic acid/ chondroitin/ glucosa/ samara (Glucosamine Chondroitin) Oral Daily continue taking as prescribed Unchanged Aspirin (aspirin 81 mg oral delayed release tablet) 1 tab(s) Oral Daily continue taking as prescribed Unchanged Atorvastatin (atorvastatin 20 mg oral tablet) 1 tab(s) Oral Daily continue taking as prescribed Unchanged Azelastine Nasal (azelastine 137 mcg/ inh (0.1%) nasal spray) 2 spray(s) Nares, Both Daily as needed for Other Allergies continue taking as prescribed Unchanged Cholecalciferol (Vitamin D3 1000 intl units oral capsule) 1 capsule Oral Daily continue taking as prescribed Unchanged Finasteride (finasteride 5 mg oral tablet) 1 tab(s) Oral Daily continue taking as prescribed Unchanged Lutein Oral Daily continue taking as prescribed Unchanged Melatonin continue taking as prescribed Unchanged Metoprolol (Metoprolol Succinate ER 25 mg oral tablet, extended release) 1 tab(s) Oral Daily continue taking as prescribed Unchanged Multivitamin With Minerals (Theratrum Complete with Lutein and Lycopene) Oral Daily continue taking as prescribed Unchanged Sulfamethoxazole/ Trimethoprim (Bactrim 400 mg-80 mg oral tablet) 1 tab(s) Oral Twice a day continue taking as prescribed Unchanged Tamsulosin (tamsulosin 0.4 mg oral capsule) 1 capsule Oral Daily continue taking as prescribed Unchanged Ubiquinone (Co Q-10) 100 Milligram Oral Daily continue taking as prescribed Pharmacy Information [facility]: [address] [place], [place] [phone] Test Results Below is a partial list of the most recent Laboratory test results done prior to this discharge. You may have had other tests and procedures not included in this list. Please discuss all test resultswith your provider. Est Creatinine Clearance - 39.47 mL/min (04/13/2023) BUN (04/13/2023) ???BUN - 17 mg/dL Calcium Level (04/13/2023) ???Calcium - 9.3 mg/dL CBC (04/13/2023) ???WBC - 6.0 k/mm3???RBC - 3.94 m/mm3???Hgb - 13.4 Gm/dL???Hct - 37.7 %???MCV - 95.7 femtoliters???MCH - 34.0 pg???MCHC - 35.5 g/dL???Platelet Count - 186 k/mm3???RDW-SD - 42.9 femtoliters???MPV - 10.2 femtoliters???Nucleated RBC (Automated) - 0.0 #/100 WBC'S???Abs. NRBC - 0.0 k/mm3 Creatinine (04/13/2023) ???Creatinine-Blood - 1.2 mg/dL???Estimated GFR Creatinine - 60 ML/MIN/1.73 M2 Glucose Level (04/13/2023) ???Glucose Level - 108 mg/dL Lytes (04/13/2023) ???Sodium - 137 mmol/L???Potassium - 4.2 mmol/L???Chloride - 100 mmol/L???Bicarbonate Level - 26 mmol/L???Anion Gap - 11 Allergies (NKA means No Known Allergies) fentaNYL??(SEVERE URINE RETENTION) Problems No qualifying data available Education Materials Below is the list of Educational Leaflet Providered with your Discharge Instructions. Clopidogrel Oral Tablet?? Surgery Radial Cath Approach Discharge Instructions?? Recovery After Procedural Sedation (Adult)?? Discharge Instructions for Cardiac Catheterization?? Bleeding or Hematoma After Cardiac Catheterization?? Coronary Stents?? Valuables and Belongings I fully understand and agree that [facility] accepts no responsibility for all my personal property including clothing, toilet articles, radios, jewelry, dentures, hearing aids, rings, money, or any other property that is in my possession or is brought to me after admission. I understand certain valuables may be placed in a hospital safe for a short period of time. I understand that the hospital is not liable for loss or damage due to accident, fire, or other natural occurrence while said property is in the safe. I accept full responsibility for any personal property that I keep with me, and will not hold the hospital responsible in case of loss or disappearance. I acknowledge that i have been encouraged to send valuables and belongings home. ?? Review of Valuable and Belonging List: With patient Date for Pt to Sign Valuables/Belongings: 04/13/23 09:15:00 ?? Other Discharge Information ? Pulmonary Rehab Status?? Pulmonary Rehab Discharge Status?? Respiratory Rate: 17 br/min ? Common Emergency Awareness Tips IS IT A STROKE? Act FAST and Check for these signs: FACE Does the face look uneven? ARM Does one arm drift down? SPEECH Does their speech sound strange? TIME Call at any sign of stroke ?? Heart Attack Signs Chest discomfort: Most heart attacks involve discomfort in the center of the chest and lasts more than a few minutes, or goes away and comes back. It can feel like uncomfortable pressure, squeezing, fullness or pain. Discomfort in upper body: Symptoms can include pain or discomfort in one or both arms, back, neck, jaw or stomach. Shortness of breath: With or without discomfort. Other signs: Breaking out in a cold sweat, nausea, or lightheaded. Remember, MINUTES DO MATTER. If you experience any of these heart attack warning signs, call to get immediate medical attention! ?? Smoking can increase your chances of developing chronic health problems and can cause harmful effects to other family members in your house. If you smoke, you are strongly encouraged to quit. Please call [facility] Link at [phone] or [phone] ([phone]) or log in to [email or web address] for referrals to smoking cessation programs. ?? 962 Suicide & Crisis Lifeline is available 13/11 if you or someone you know needs to find a reason to keep living. By calling 461 you'll be connected to a skilled, trained counselor at a crisis center in your area. INPATIENT DISCHARGE INSTRUCTIONS SIGNATURE PAGE ANN PEREYRA Location:[facility] Registration Date and Time:04/13/2023 08:37 EST Primary Care Physician: Sunita MCKNIGHT , Winifred Schmid, Attending Physician: Swapnil MCKNIGHT, Gopal Mondragon, I RODDY ANN, have received the above patient education materials/instructions and have verbalized understanding. If ambulance or transport services are being used I further acknowledge being given a choice of service. ?? If you need to contact me, please call me at this number: . Patient/Dish Washer Name: Patient/Dish Washer Signature: Relationship to Patient: Witness Name/Signature: Date: * Ellen Fernando: PERFORM Event Display: Patient Education Leaflets Authored Date: [id number] Clopidogrel Oral Tablet ?? [address] Clopidogrel Oral Tablet Brands: Plavix Uses This medicine is used for the following purposes: ??? prevent blood clots ??? prevent stroke ??? prevent heart attack ?? Instructions This medicine may be taken with or without food. This medicine will work best if you take it at about the same time every day. Keep the medicine at room temperature. Avoid heat and direct light. It is important that you keep taking each dose of this medicine on time even if you are feeling well. If you forget to take a dose on time, take it as soon as you remember. If it is almost time for thenext dose, do not take the missed dose. Return to your normal schedule. Do not take 2 doses at one time. Drug interactions can change how medicines work or increase risk for side effects. Tell your healthcare providers about all medicines taken. Include prescription and [id number] medicines, vitamins, and herbal medicines. Speak with your doctor or pharmacist before starting or stopping any medicine. ?? Cautions Tell your doctor and pharmacist if you ever had an allergic reaction to a medicine. Do not use the medication any more than instructed. Speak with your doctor before taking any medicine with aspirin. Contact your doctor if you notice a change in the amount or darkening of your urine. Tell the doctor or pharmacist if you are , planning to be , or . Call your doctor right away if you notice any unusual bleeding or bruising. Do not share this medicine with anyone who has not been prescribed this medicine. Some patients have serious side effects from this medicine. Ask your pharmacist to show you the information from the Food and Drug Administration (FDA) and discuss it with you. ?? Side Effects The following is a list of some common side effects from this medicine. Please speak with your doctor about what you should do if you experience these or other side effects. ??? itching Call your doctor or get medical help right away if you notice any of these more serious side effects: ??? loss of balance ??? bleeding or bruising ??? chest pain ??? coughing up blood or vomit that looks like coffee grounds ??? fever ??? swelling in the neck or throat ??? severe or persistent headache ??? fast or irregular heart beats ??? pale or blue skin, lips or fingernails ??? bloody or dark, tarry stools ??? symptoms of stroke (such as one-sided weakness, slurred speech, confusion) ??? unusual or unexplained tiredness or weakness ??? blood in urine ??? yellowing of eyes or skin A few people may have an allergic reaction to this medicine. Symptoms can include difficulty breathing, skin rash, itching, swelling, or severe dizziness. If you notice any of these symptoms, seek medical help quickly. ?? Extra Please speak with your doctor, nurse, or pharmacist if you have any questions about this medicine. ?? [email or web address] IMPORTANT NOTE: This document tells you briefly how to take your medicine, but it does not tell youall there is to know about it. Your doctor or pharmacist may give you other documents about your medicine. Please talk to them if you have any questions. Always follow their advice. There is a more complete description of this medicine available in [place]. Scan this code on your smartphone or tablet or use the web address below. You can also ask your pharmacist for a printout. If you have any questions, please ask your pharmacist. The display and use of this drug information is subject to Terms of Use. Copyright(c) 2022 [email or web address]. ?? [employer]. All rights reserved. This information is not intended as a substitute for professional medical care. Always follow your healthcare professional's instructions. ?? * Ellen Fernando: PERFORM Event Display: Patient Education Leaflets Authored Date: [id number] Surgery Radial Cath Approach Discharge Instructions ?? 278 Radial Cath Approach Discharge Instructions ?? Activity Take it easy the rest of the day. Limit your activity on the affected side.?? Act as if your arm is broken for 24 hours. No lifting with affected arm for 24 hours. No pushing or pulling with the affected arm. Do not reach or lift with the affected arm. Do not place excessive pressure on the wrist. ?? Precautions Due to intravenous sedation: It is recommended that someone stay with you for the first night after your procedure. Do not drive or operate hazardous machinery for 24 hours. Do not make legal decisions for 24 hours. Avoid alcohol for 24 hours. Unless directed otherwise, keep yourself hydrated. ?? Dressing/Incision Care You may remove the dressing 24 hours after your procedure. Replace with band aid for an additional 24 hours. You may shower and cleanse the site with soap & water then pat dry. Avoid submersion of site in water x 5 days. Cover the with a clean band aid daily until site is healed. If the band aid becomes soiled, replacewith a clean new one. Do not apply any ointments, lotions, gels or powders to the puncture site. ?? When to contact your doctor If any of the following signs of infection occur: Fever greater than 100 degrees F Increased pain Drainage, redness or warmth at puncture site Tingling of the fingers and hand that last longer than 3 days Slight bubble of blood or bleeding from site: apply manual pressure and notify your doctor ?? Emergency situations: Bleeding from the site that will not stop: apply manual pressure and notify your doctor Profuse bleeding streaming from the puncture site: Apply manual pressure and notify your doctor immediately If your hand becomes bluish, cold to the touch, or painful, notify your doctor immediately or go toEmergency Department. For these emergent situations: If unable to contact your physician, call 911. ?? * Ellen Fernando: PERFORM Event Display: Patient Education Leaflets Authored Date: Recovery After Procedural Sedation (Adult) ?? [id number] Recovery After Procedural Sedation (Adult) You have been given medicine by vein to make you sleep during your procedure. This may have included both a pain medicine and sleeping medicine. Most of the effects have worn off. But you may still have some drowsiness for the next 6 to 8 hours. Home care Follow these guidelines when you get home: ??? For the next 8 hours, you should be watched by a responsible adult. This person should make sure your condition is not getting worse. ??? Don't drink any alcohol??for the next 24 hours. ??? Don'tdrive, operate dangerous machinery, or make important business or personal decisions??during the next 24 hours. Note: Your healthcare provider may tell you not to take any medicine by mouth for pain or sleep in the next 4 hours. These medicines may react with the medicines you were given in the hospital. This could cause a much stronger response than usual. ?? Follow-up care Follow up with your healthcare provider as advised. Also follow up with your provider if you are not alert and back to your usual level of activity within 12 hours. ?? When to seek medical advice Have someone call your healthcare provider right away if any of these occur: ??? Drowsiness gets worse ??? Weakness or dizziness gets worse ??? Repeated vomiting ??? Severe or ongoing pain from the procedure that's not eased by the pain medicine (if prescribed) ??? Fever ??? New rash ?? Call 911 Have someone call 911 if you have any of these: ??? Shortness of breath ??? Chest pain ??? Loss of consciousness or you can't be awakened ?? Last Reviewed Date: 2021 ?? [id number] [employer]. All rights reserved. This information is not intended as a substitute for professional medical care. Always follow your healthcare professional's instructions. ?? Patient Care team information Care Team Personnel Name: Winifred Dorsey MD Position: Reference Physician Member Role: PCP Address: Address: [address] [place] [address] [place] [address] [place] Care Team Related Persons Name: YANNICK PEREYRA Address: home [address] [place] [address]
--- OUTSIDE RECORDS SUMMARY | 2023-12-12 06:10 | XMS_ITS | Continuity of Care Document ---
Author Organization [facility] Address [address] [place] [id number] Care Team Providers Care Field Assembly Supervisor Name Role Phone Winifred Dorsey MD Primary Care Physician Encounter [facility] Date(s): 03/19/23 - 04/18/23 [facility] [address] [place] [phone]- [place] Allergies, Adverse Reactions, Alerts Substance Reaction Severity [...] mL, 0 Refills, Maintenance, 11/28/22 15:04:00 EDT, [place], Partial fill upon patient request if the [...] Maintenance, 04/13/23 12:41:00 EST,Route to Pharmacy Electronically, [id number], Partial fill upon patient request [...] Reference Physician Member Role: PCP Address: Address: [address] [place] [address] [place] [address] [place] Care Team Related Persons Name: YANNICK PEREYRA Address: home [address] [place] [address]
--- OUTSIDE RECORDS SUMMARY | 2023-12-12 06:10 | XMS_ITS | Continuity of Care Document ---
Author Organization [facility] ter Address [address] [place] [id number] Care Team Providers Care Facilities Administrator Name Role Phone Winifred Dorsey MD Primary Care Physician [phone] Encounter [facility] Date(s): 06/23/23 - 06/28/[address] [id number] Discharge Disposition: A-Transfer VNA/Home Health Attending Physician: Jeniffer Hansen MD Admitting Physician: Jeniffer Hansen MD Referring Physician: Jeniffer Hansen MD Allergies, Adverse Reactions, Alerts No Known Medication Allergies Medications acetaminophen 325 mg oral tablet 975 mg, 3, tablet, By Mouth, Every 6 hours, for 7 days, # 84 tablet, Refills 0, Tot. Refills 0, Acute 07/04/23 11:50:00 EDT, 06/27/23 11:50:00 EST, Route to Pharmacy Electronically, [facility], Partial fill upon patient request if the pr... Start Date: 06/27/23 Stop Date: 07/04/23 Status: Ordered amLODIPine 10 mg oral tablet [...] mL, 0 Refills, Maintenance, 11/28/22 15:04:00 EDT, [place], Partial fill upon patient request if the prescription is for a schedule II opioid drug. Start Date: 11/28/22 Status: Ordered clopidogrel 75 mg oral tablet 75 mg, By Mouth, Daily, # 90 tablet, Refills 3, Tot. Refills 3, Maintenance, 04/13/23 12:41:00 EST,Route to Pharmacy Electronically, [id number], Partial fill upon patient request if the [...] ER 25 mg oral tablet, extended release 25 mg, XL Tablet, By Mouth, 06/28/23 9:00:00 EST Start Date: 06/28/23 Stop Date: 06/28/23 Status: Completed Metoprolol Succinate ER 25 mg oral tablet, extended release 1 tablet = 25 mg, By Mouth, Daily, # 30 tablet, 0 Refills, Maintenance, 11/28/22 15:02:00 EDT, ER Tablet, Partial fill upon patient request if the prescription is for a schedule II opioid drug. Start Date: 11/28/22 Status: Ordered MiraLax oral powder for reconstitution = 17 Gm, By Mouth, Daily, for 7 days, # 119 Gm, 0 Refills, Acute 07/04/23 11:51:00 EDT, 06/27/23 11:51:00 EST, REC Powder, [facility], Partial fill upon patient request if the prescription is for a schedule II opioid drug., 17 Gm By Mout... Start Date: 06/27/23 Stop Date: 07/04/23 Status: Ordered oxyCODONE 5 mg oral tablet 5 mg, 1, tablet, By Mouth, Every 4 hours, PRN, for 7 days, # 42 tablet, Refills 0, Tot. Refills 0, Acute 07/04/23 11:50:00 EDT, Pain , Moderate, 06/27/23 11:50:00 EST, Route to Pharmacy Electronically, [facility], Partial fill upon patie... Start Date: 06/27/23 Stop Date: 07/04/23 Status: Ordered tamsulosin 0.4 mg oral capsule [...] opioid drug. Start Date: 11/28/22 Status: Ordered Results Orders for Microbiology Reports Name Date Blood Culture 06/24/23 Blood Culture #2 06/24/23 Microbiology Reports TEST:Blood Culture STATUS:Unauthenticated BODY SITE: SOURCE:Blood COLLECTED DATE/TIME:06/24/23 8:17 AM Blood Culture SPECIMEN DESCRIPTION : BLOOD NO SITE SPECIAL REQUESTS : RECIEVED AEROBIC BOTTLE ONLY CULTURE : NO GROWTH 4 DAYS REPORT STATUS : PRELIMINARY REPORT TEST:Blood Culture, Second Order STATUS:Unauthenticated BODY SITE: SOURCE:Blood COLLECTED DATE/TIME:06/24/23 8:17 AM Blood Culture, Second Order SPECIMEN DESCRIPTION : BLOOD NO SITE SPECIAL REQUESTS : NONE CULTURE : NO GROWTH 4 DAYS REPORT STATUS : PRELIMINARY REPORT Radiology Reports * Exam Date Time Procedure Performing Provider Status 06/27/23 7:33 AM Chest 2 Views Frontal and Lat Vilma Mcguire; Auth (Verified) Notes: (Chest 2 Views Frontal and Lat) Reason For Exam: Tube Placement RESULT: Chest 2 Views Frontal and Lat Chest 2 Views Frontal and Lat Reason: Tube Placement; Clinical Question(s): Pneumothorax COMPARISON: X-ray 06/26/2023 4:13 PM FINDINGS: LINES AND TUBES: None. LUNGS AND PLEURA: There is a small right apical pneumothorax which is not significantly changed and is difficult to visualize due to kyphosis. Chronic elevated right hemidiaphragm unchanged. The left lung is clear. No pneumothorax. HEART, MEDIASTINUM AND CHRISTOPHER: Cardiac enlargement is unchanged. Normal mediastinal and hilar contour. BONES AND SOFT TISSUES: No acute abnormality. IMPRESSION: Small right apical pneumothorax which is difficult to visualize due to kyphosis but otherwise unchanged extending to the third intercostal space posteriorly. WSN: [id number] Ordering Physician: Mehnaz Castano Dictated By: Iván Sanchez MD Dictated Date/Time: 06/27/23 10:34 a Reviewed By: Iván Sanchez MD Signed By: Iván Sanchez MD Signed Date/Time: 06/27/23 10:34 am Transcribed By: JESUS Transcribed Date/Time: 06/27/23 10:32 am * Exam Date Time Procedure Performing Provider Status 06/26/23 4:22 PM Chest 2 Views Frontal and Lat Teresa Mclean; Auth (Verified) Notes: (Chest 2 Views Frontal and Lat) Reason For Exam: Tube removal;Postop RESULT: Chest 2 Views Frontal and Lat Chest 2 Views Frontal and Lat Reason: Postop; Tube removal; Clinical Question(s): Pneumothorax COMPARISON: Multiple prior radiographs, most recently from 06/26/2023. FINDINGS: LINES AND TUBES: Interval removal of the right apical thoracostomy tube. LUNGS AND PLEURA: Chronic eventration of right hemidiaphragm. Mild bibasilar atelectasis, right worse than left. Questionable trace bilateral pleural effusions. Largely unchanged small right apical pneumothorax with the apical-pleural distance measuring 1.3 cm. No left pneumothorax. HEART, MEDIASTINUM AND CHRISTOPHER: Heart is normal in size. Normal mediastinal and hilar contour. BONES AND SOFT TISSUES: No acute abnormality. Unchanged subcutaneous emphysema of the right lateral chest wall. IMPRESSION: Interval removal of the right apical thoracostomy tube. Unchanged small right apical pneumothorax. Mild bibasilar atelectasis. Questionable trace bilateral pleural effusions. I have personally reviewed the images and I agree with this report. WSN: [id number] Ordering Physician: Mehnaz Castano Dictated By: Jaclyn Bruce MD Dictated Date/Time: 06/26/23 4:43 pm Reviewed By: Johnny Rhodes MD Signed By: Johnny Rhodes MD Signed Date/Time: 06/26/23 4:48 pm Transcribed By: JESUS Transcribed Date/Time: 06/26/23 4:34 pm * Exam Date Time Procedure Performing Provider Status 06/26/23 6:51 AM Chest 2 Views Frontal and Lat Vilma Mcguire; Auth (Verified) Notes: (Chest 2 Views Frontal and Lat) Reason For Exam: Tube Placement RESULT: Chest 2 Views Frontal and Lat Chest 2 Views Frontal and Lat Reason: Tube Placement; Clinical Question(s): Pneumothorax COMPARISON: Multiple priors most recently 06/25/2023 FINDINGS: LINES AND TUBES: Right chest tube remains in similar position. LUNGS AND PLEURA: Continued elevation of the right hemidiaphragm with interposition of the colon. Lungs appear satisfactorily aerated bilaterally, just some crowding of right basilar markings. No significant pleural effusion on either side. The previously noted small right apical pneumothorax is less apparent on today's examination, unclear if there is still a visceral pleural line obscured by rib margin, although there is no residual hyperlucency over the apex. HEART, MEDIASTINUM AND CHRISTOPHER: Heart is normal in size. Stable mediastinal and hilar contours BONES AND SOFT TISSUES: No acute abnormality. There is a small amount of residual subcutaneous emphysema in the right lateral chest wall. IMPRESSION: Less apparent or possibly resolved right apical pneumothorax with chest tube in place. No acute cardiopulmonary pathology. WSN: [id number] Ordering Physician: Mehnaz Castano Dictated By: Jeremiah Reardon MD Dictated Date/Time: 06/26/23 9:08 am Reviewed By: Jeremiah Reardon MD Signed By: Jeremiah Reardon MD Signed Date/Time: 06/26/23 9:08 am Transcribed By: JESUS Transcribed Date/Time: 06/26/23 8:58 am * Exam Date Time Procedure Performing Provider Status 06/25/23 6:02 AM Chest 2 Views Frontal and Lat Jonny Mcmillan; Auth (Verified) Notes: (Chest 2 Views Frontal and Lat) Reason For Exam: Tube Placement RESULT: Chest 2 Views Frontal and Lat Chest 2 Views Frontal and Lat Reason: Tube Placement; Clinical Question(s): Pneumothorax COMPARISON: 06/24/2023 FINDINGS: LINES AND TUBES: Right-sided chest tube position unchanged. LUNGS AND PLEURA: Small right apical pneumothorax with 1.9 cm pleural to pleural separation Slightly improving right lung volume and decreased loculated right pneumothorax along the hemidiaphragm. Small bilateral pleural effusion. HEART, MEDIASTINUM AND CHRISTOPHER: Heart is normal in size. Normal mediastinal and hilar contour. BONES AND SOFT TISSUES: Improving right chest wall subcutaneous emphysema. IMPRESSION: Small right apical pneumothorax with 1.9 cm pleural separation, with slightly decreased loculated component along the right hemidiaphragm. Small bilateral pleural effusion. I have personally reviewed the images and I agree with this report. WSN: [id number] Ordering Physician: Clovis Galo Dictated By: Eric Campoverde MD Dictated Date/Time: 06/25/23 10:06 a Reviewed By: Russ Olmedo MD, V Signed By: Russ Olmedo MD, V Signed Date/Time: 06/25/23 10:11 am Transcribed By: JESUS Transcribed Date/Time: 06/25/23 10:00 am * Exam Date Time Procedure Performing Provider Status 06/24/23 6:53 AM Chest 2 Views Frontal and Lat Minoo Chapman; Auth (Verified) Notes: (Chest 2 Views Frontal and Lat) Reason For Exam: Postop RESULT: Chest 2 Views Frontal and Lat Chest 2 Views Frontal and Lat Reason: Postop; Clinical Question(s): Postop COMPARISON: 06/23/2023. FINDINGS: LINES AND TUBES: Stable position of the apically directed right chest tube. LUNGS AND PLEURA: Right hemidiaphragm is elevated anteriorly. Stable hazy opacification in right lower lobe. Small volume right pneumothorax loculated along the minor fissure and along the right hemidiaphragm. No pleural effusion. No left pneumothorax. HEART, MEDIASTINUM AND CHRISTOPHER: Mild prominence of the cardiac silhouette. Aorta is mildly calcified. BONES AND SOFT TISSUES: No acute osseous abnormality. There is soft tissue emphysema in the right chest wall. IMPRESSION: Hazy right lower lobe opacification could indicate pneumonia and/or atelectasis. Small volume loculated right pneumothorax. WSN: [id number] Ordering Physician: Francis Stern Dictated By: Tyesha Leiva MD Dictated Date/Time: 06/24/23 10:59 a Reviewed By: Tyesha Leiva MD Signed By: Tyesha Leiva MD Signed Date/Time: 06/24/23 10:59 am Transcribed By: JESUS Transcribed Date/Time: 06/24/23 10:57 am * Exam Date Time Procedure Performing Provider Status 06/23/23 9:18 PM Chest Portable Cheryl Bustamante; Auth (Verified) Notes: (Chest Portable) Reason For Exam: Postop RESULT: Chest Portable Chest Portable Reason: Postop; Clinical Question(s): Postop COMPARISON: Correlation with CT chest 12/07/2022. FINDINGS: LINES AND TUBES: Right chest tube terminating at the apex of the right hemithorax. LUNGS AND PLEURA: Moderately elevated right hemidiaphragm. Right medial basilar opacity. Dense opacification of the left retrocardiac region. No pleural effusion. No pneumothorax. HEART, MEDIASTINUM AND CHRISTOPHER: Mild prominence of the cardiac silhouette, likely due to oblique projection. Aorta is tortuous and partially calcified. BONES AND SOFT TISSUES: No acute abnormality. Soft tissue emphysema in the right chest wall. IMPRESSION: Dense left retrocardiac, right medial basilar opacities could represent atelectasis versus pneumonia. Right chest tube present. I have personally reviewed the images and I agree with this report. WSN: [id number] Ordering Physician: Francis Stern Dictated By: Gonsalo[Radiology] Amber MCKNIGHT Dictated Date/Time: 06/23/23 9:32 pm Reviewed By: Jp Davis MD Signed By: Jp Davis MD Signed Date/Time: 06/23/23 9:37 pm Transcribed By: JESUS Transcribed Date/Time: 06/23/23 9:28 pm Vital Signs Most recent to oldest [Reference Range]: 1 2 3 Height 173 cm (06/23/23 4:55 PM) 173 cm (06/23/23 11:16 AM) Weight 61.1 kg (06/23/23 4:55 PM) 61.1 kg (06/23/23 11:16 AM) Oxygen Saturation [94-100 %] 93 % *L* (06/28/23 2:00 PM) 96 % (06/28/23 10:00 AM) 95 % (06/28/23 7:39 AM) Pulse Rate [55-90 bpm] 86 bpm (06/28/23 8:31 AM) 72 bpm (06/28/23 6:00 AM) 64 bpm (06/28/23 4:00 AM) Body Mass Index [18.5-24.99 kg/m2] 20.41 kg/m2 (06/23/23 4:55 PM) 20.41 kg/m2 (06/23/23 11:16 AM) Blood Pressure [90-138/55-84 mm Hg] 132/78mm Hg (06/28/23 2:00 PM) 143/93mm Hg *H* (06/28/23 10:00 AM) 142/87mm Hg *H* (06/28/23 8:31 AM) Respiratory Rate [16-30 br/min] 21 br/min (06/28/23 2:00 PM) 16 br/min (06/28/23 10:00 AM) 19 br/min (06/28/23 7:39 AM) Temperature [96.8-100.4 DegF] 97.9 DegF (06/28/23 2:00 PM) 98.2 DegF (06/28/23 10:00 AM) 97.5 DegF (06/28/23 7:39 AM) Liters per Minute 1 L/min (06/25/23 4:00 AM) 1 L/min (06/25/23 2:00 AM) 1 L/min (06/24/23 8:00 AM) Mode of Delivery (Oxygen) Room air (06/28/23 2:00 PM) Room air (06/28/23 10:00 AM) Room air (06/28/23 7:39 AM) Blood pressure sites Arm, right (06/28/23 2:00 PM) Arm, right (06/28/23 7:39 AM) Arm, right (06/28/23 6:00 AM) Temperature Route Axillary (06/28/23 2:00 PM) Axillary (06/28/23 10:00 AM) Oral (06/28/23 6:00 AM) Dry Weight 61.1 kg (06/23/23 11:16 AM) Social History Social History Type Response Smoking Status Former smoker, quit more than 30 days ago; Other: quit 1969; 0.5 ppd x 15 years; entered on: 11/28/22 Sex Consult note * Romel Padgett MD I: MODIFY Romel Padgett MD I: MODIFY Event Display: Consult Authored Date: [id number] Patient: ??ARTEMIO GALLEGO ? Age:??83 Years?Sex:??Male?:??1940?? 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 Chief Complaint and Reason for Consultation: Hyponatremia/SIADH ? History of Present Illness: Artemio Gallego is an 83 YOM, pmhx of CAD s/p stenting in Mar 2023 on ASA and Plavix, HTN, urinaryretention requiring straight catheterization (BID at baseline), and known diaphragmatic hernia, whoinitially presented here on 06/22 from [facility] with progressive SOB x2 days found tohave an incarcerated R diaphragmatic hernia with closed loop colonic obstruction. Patient underwentan urgent R thoracotomy, reduction of intrathoracic small bowel/colon and repair of diaphragmatic defect on 06/22 with no acute complications. He received about 2L of LR in the OR with about 600mL of output. ?? Renal was consulted for hyponatremia. On 06/24, the patient was noted to have a sodium of 127 in the AM and repeat of 125 in the PM. He received a total of 3L of IVF on 06/24, after which fluids were discontinued. Repeat Na today (06/25) shows a slight increase in Na at 128. Other notable studies includeserum osmol of 269 and urine osmol of 232. Upon my evaluation today, the patient was lying in bed with his?? and daughter present. He is alert and orientedx3. He does not endorse any LAU or nausea/vomiting. Post-operatively he was on a clear liquid diet and transitioned to solid foods on 06/24 andhas been trying to eat. Pain is well-controlled. SOB is much improved and he denies any other new/worsening symptoms. ?? Of note, a small R apical PTX was noted on 06/23, which has become less apparent/possibly resolved asseen on repeat CXR from 06/25. ?? Past Medical History No problems documented. ?? Medications: Medication List ? Active Medications ?Ordered ? Acetaminophen: 975 mg, By Mouth, Every 6 hours. ? Albuterol/Ipratropium: 1 vials, Neb, Every 6 hours. ? Amlodipine: 10 mg, By Mouth, Daily at bedtime. ? Aspirin: 81 mg, tablet, By Mouth, Daily. ? Atorvastatin: 20 mg, tablet, By Mouth, Daily. ? Clopidogrel: 75 mg, By Mouth, Daily. ? Docusate: 100 mg, 1 capsule, By Mouth, 2 times a day. ? Heparin: 5,000 units, 1 mL, Subcutaneous Injection, 3 times a day. ? Metoprolol: 25 mg, By Mouth, Daily. ? Ondansetron: 4 mg, IV Push, Every 6 hours, PRN: Nausea & Vomiting. ? Oxycodone: 5 mg, By Mouth, Every 4 hours, PRN: Pain , Moderate. ?Prescribed ? Clopidogrel: 75 mg, By Mouth, Daily, 90 tablet, 3 Refill(s). ?Documented ? Amlodipine: 10 mg, 1 tablet, By Mouth, Daily, 30 tablet, 0 Refill(s). ? ascorbic acid/chondroitin/glucosa/samara: By Mouth, Daily, 0 ? Refill(s). ? Aspirin: 81 mg, 1 tablet, By Mouth, Daily, 30 tablet, 0 Refill(s). ? Atorvastatin: 20 mg, 1 tablet, By Mouth, Daily, 30 tablet, 0 ? Refill(s). ? Azelastine Nasal: 2 sprays, Nares, Both, Daily, PRN: Other ? Allergies, 30 mL, 0 Refill(s). ? Cholecalciferol: 25 mcg, 1 capsule, By Mouth, Daily, 100 capsule, 0 ? Refill(s). ? Finasteride: 5 mg, 1 tablet, By Mouth, Daily, 30 tablet, 0 Refill(s). ? Lutein: By Mouth, Daily, 0 Refill(s). ? Melatonin: 0 Refill(s). ? Metoprolol: 25 mg, 1 tablet, By Mouth, Daily, 30 tablet, 0 Refill(s). ? Multivitamin With Minerals: By Mouth, Daily, 0 Refill(s). ? Sulfamethoxazole/Trimethoprim: 1 tablet, By Mouth, 2 times a day, 10 ? tablet, 0 Refill(s). ? Tamsulosin: 0.4 mg, 1 capsule, By Mouth, Daily, 30 capsule, 0 ? Refill(s). ? Ubiquinone: 100 mg, By Mouth, Daily, 0 Refill(s). ?Incomplete ? Acetaminophen: 975 mg, By Mouth, Once. ? ceFAZolin: 2 Gm, IV Push, Once. ? Celecoxib: 400 mg, By Mouth, Once. ? Gabapentin: 600 mg, By Mouth, Once. ? Heparin: 5,000 units, 1 mL, Subcutaneous Injection, Once. ? Lactated Ringers Injection 1,000 mL: 20 mL/hr, IV Infusion. ? Metronidazole: 500 mg, 100 mL, 100 mL/hr, IVPB, Once. ? Medications Inactivated in the Last 72 Hours ? Acetaminophen: 975 mg, By Mouth, Once. ? Acetaminophen: 1,000 mg, 100 mL, 400 mL/hr, IVPB, Once, PRN: Pain , ? Mild. ? Acetaminophen: 975 mg, By Mouth, Once, PRN: Pain , Mild. ? Amlodipine: 10 mg, tablet, By Mouth, Daily. ? Bisacodyl: 10 mg, 1 supp, Rectally, Once. ? ceFAZolin: 2 Gm, IV Push Slowly, Every 8 hours. ? ceFAZolin: 2 Gm, IV Push, Once. ? Celecoxib: 200 mg, By Mouth, 2 times a day. ? Celecoxib: 200 mg, By Mouth, Once. ? Enoxaparin: 40 mg, 0.4 mL, Subcutaneous Injection, Daily. ? Enoxaparin: 40 mg, 0.4 mL, Subcutaneous Injection, Daily. ? Fentanyl: 25 mcg, 0.5 mL, IV Push Slowly, Every 5 minutes, PRN: Pain ? , Moderate. ? Gabapentin: 300 mg, By Mouth, 3 times a day. ? Gabapentin: 600 mg, By Mouth, Once. ? Haloperidol: 0.5 mg, 0.1 mL, IV Push, Once, PRN: Nausea & Vomiting. ? Heparin: 5,000 units, 1 mL, Subcutaneous Injection, 3 times a day. ? Hydromorphone: 0.5 mg, 0.5 mL, IV Push Slowly, Every 10 minutes, PRN: ? Pain , Severe. ? Labetalol: 10 mg, 2 mL, IV Push Slowly, Once. ? Labetalol: 10 mg, 2 mL, IV Push Slowly, Once, PRN: Blood Pressure. ? Lactated Ringers Injection 1,000 mL: 75 mL/hr, IV Infusion. ? Lactated Ringers Injection 500 mL: Bolus, IV Infusion. ? nalOXONE: 0.04 mg, 0.1 mL, IV Push, Every 5 minutes, PRN: Other. ? Oxycodone: 5 mg, By Mouth, Once, PRN: Pain , Moderate. ? Oxycodone: 10 mg, By Mouth, Once, PRN: Pain , Severe. ? Sodium Chloride 0.9% 1,000 mL: 75 mL/hr, IV Infusion. ?? FH: reviewed and non-contributory ?? Social: reviewed ?? Review of Systems All other review of systems were negative unless specified above. ?? Objective Vital Signs (last 24 hrs) ?Last Charted Heart Rate Peripheral?H??104bpm ??(JUN 25 09:05) Resp Rate?22 br/min ??(JUN 25 08:00) SBP?H??159mm Hg ??(JUN 25 14:00) DBP?H??97mm Hg ??(JUN 25 14:00) SpO2?98 % ??(JUN 25 14:00) Intake?? Output?? Oral Fluids: 200 mL (18:00) Urine Catheter: 960 mL (10:00) Stool Frequency: 1 (10:00) Chest, right lateral - Chest Tube Output: 60 mL (10:00) ? Intake/Output?? 06/22 10:59 06/25 07:00 03/04 07:00 06/23 07:00 03 07:00 ?? 06/25 15:26 03 15:26 06/25 06:59 0304 06:59 0303 06:59 Intake ? 6473.8 ?0 ? 1918.8 ? 2510 ? 2045 Output ? 8217 ? 1020 ? 4382 ? 1722 ? 1093 Net Total ?-1743.2 ?-1020 ?-2463.2 ?788 ?952 ? Physical Exam General: Patient in no acute distress, lying down flat HEENT: normocephalic, atraumatic Respiratory: clear to auscultation with no wheezes or crackles. CVS: No JVD, dry mucus membranes Abdomen: soft, non tender, non distended, bowel sounds present. Extremities: No edema noted bilaterally. Skin: No notable rashes Neuro: alert and oriented x3. Moving all extremities spontaneously. Following simple commands. Dialysis access: None ?? BLOOD COUNT & DIFF WBC 11.9 k/mm3 (High)?? 06/26/2023 00:31 RBC 3.35 m/mm3 (Low)?? 06/26/2023 00:31 Hgb 11.3 Gm/dL (Low)?? 06/26/2023 00:31 Hct 32.0 % (Low)?? 06/26/2023 00:31 MCV 95.5 femtoliters (High)?? 06/26/2023 00:31 MCH 33.7 pg ()?? 06/26/2023 00:31 MCHC 35.3 g/dL ()?? 06/26/2023 00:31 Platelet Count 197 k/mm3 ()?? 06/26/2023 00:31 RDW-SD 42.1 femtoliters ()?? 06/26/2023 00:31 MPV 10.0 femtoliters ()?? 06/26/2023 00:31 Nucleated RBC (Automated) 0.0 #/100 WBC'S ()?? 06/26/2023 00:31 Abs. NRBC 0.0 k/mm3 ()?? 06/26/2023 00:31 Abs. Neut 10.4 k/mm3 (High)?? 06/26/2023 00:31 Abs. Lymph 0.6 k/mm3 (Low)?? 06/26/2023 00:31 Abs. [place] 0.8 k/mm3 ()?? 06/26/2023 00:31 Abs. Eo 0.1 k/mm3 ()?? 06/26/2023 00:31 Abs. Baso 0.0 k/mm3 ()?? 06/26/2023 00:31 Neut % 87.1 % (High)?? 06/26/2023 00:31 Lymph % 4.9 % (Low)?? 06/26/2023 00:31 [place] % 6.5 % ()?? 06/26/2023 00:31 Eos % 0.8 % ()?? 06/26/2023 00:31 Baso % 0.2 % ()?? 06/26/2023 00:31 Imm Gran 0.5 % ()?? 06/26/2023 00:31 Abs. Imm Gran 0.1 k/mm3 ()?? 06/26/2023 00:31 ?? CHEM GENERAL Sodium 128 mmol/L (Low)?? 06/26/2023 00:31 Potassium 4.1 mmol/L ()?? 06/26/2023 00:31 Chloride 91 mmol/L (Low)?? 06/26/2023 00:31 Bicarbonate Level 26 mmol/L ()?? 06/26/2023 00:31 Anion Gap 11 ()?? 06/26/2023 00:31 BUN 21 mg/dL ()?? 06/26/2023 00:31 Creatinine-Blood 1.2 mg/dL ()?? 06/26/2023 00:31 Estimated GFR Creatinine 62 ML/MIN/1.73 M2 ()?? 06/26/2023 00:31 Osmolality 269 mOs/kg (Low)?? 06/26/2023 00:31 Calcium, Ionized pH Corrected 1.15 mmol/L ()?? 06/26/2023 00:31 Phosphorus 2.6 mg/dL ()?? 06/26/2023 00:31 Magnesium 1.9 mg/dL ()?? 06/26/2023 00:31 ?? HEME OTHER Hold Lavender Top SPECIMEN DISCARDED AFTER 24 HOURS. ()?? 06/25/2023 12:58 ?? URINE OTHER Osmolality, Urine Random 232 mOsm/kg ()?? 06/26/2023 10:25 Est Creatinine Clearance 38.89 mL/min ()?? 06/26/2023 02:00 ?? No qualifying data available ?? Assessment/Plan Artemio Gallego is a 83 YOM, pmhx of CAD s/p stenting in Mar 2023 on ASA and Plavix, HTN, urinary retention requiring straight catherterization (BID at baseline), and known diaphragmatic hernia, whoinitially presented here on 06/22 from [facility] with progressive SOB x2 days found tohave an incarcerated R diaphragmatic hernia with closed loop colonic obstruction. Patient underwentan urgent R thoracotomy, reduction of intrathoracic small bowel/colono and repair of diaphragmatic defect on 06/22. Renal is being consulted for hyponatremia. ?? Hyponatremia -Urine Na upon arrival on 06/22 was 132. Does not appear to be chronically hyponatremic per chart review. -Patient does not appear volume overloaded, if anything, he appears to be either volume down due todecreased oral/PO intake or euvolemic. Serum osmol is 269 and urine osmol is 232. C/w hypotonic hyponatremia. 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 -24hr urine output -2.4L net negative.? -Creatinine is stable at 1.2. No electrolyte abnormalities. No diuretic use. ?? Recommendations: -Fluid restriction (1.5L/day). -Recheck Na today. Continue to monitor Na levels at least twice daily. -Obtain urine Na. -Encourage adequate oral intake. -Recommendations communicated to primary team, we will continue to follow ?? Oanh Banegas, OMS-IV Medical Student ? * Romel Padgett MD, I: PERFORM Event Display: Consult Authored Date: [id number] ?? I reviewed the patient's history, examined the patient, and confirmed the above findings as documented by the fellow/resident. I personally formulated the essential elements of the assessment and plan noted above. Hyponitremia. Volume status: likely close to euvolemia. Serum sodium is better after discontinuation of IVF. Will check??urine sodium. encourage po. Restrict IVF. BMP bid. ?? Dr. Padgett?? * Shanell MCKNIGHT, Blanka Young: PERFORM Event Display: Consult Authored Date: [id number] Patient: ??CLOTHIER, ARTEMIO ? Age:??83 Years?Sex:??Male?:??1940?? Chief Complaint/Reason for Consult Consulting physician/provider: Dr. Hansen Consulted physician: Dr. Mukherjee Reason for consult:??closed loop bowel obstruction in diaphragmatic hernia History of Present Illness Artemio is an 83 year old male with a past medical history of??CAD status post??stent??in March??2022, currently on aspirin and Plavix, hypertension,??urinary retention??requiring straight cath, and known diaphragmatic hernia??who presents with worsening shortness of breath.?? He recently had a fall at home??due to a syncopal episode??and was seen in the??[facility]??and??was discharged.??Aside from superficial abrasions and Over the past 2 days, he has had worsening shortness of breath, unable to take more than a couple of steps without??feeling like he was having difficulty breathing. A repeat CT scan of his??chest??was performed and showed the right diaphragmatic hernia but now with increasingly dilated bowel. His last bowel movements was two days ago and he is not passing flatus. He denies fevers/chills, nausea/vomiting. He straight caths himself twice per day at baseline and noted that he had some blood in his urine. He last ate food yesterday and last took his plavix yesterday morning. Review of Systems ROS negative except those mentioned in HPI.?? Physical Exam Vitals & Measurements T:??101.9?F?? HR:??133??(Peripheral)?? RR:??32?? BP:??166/79?? SpO2:??92%?? HT:??173??cm?? WT:??61.1??kg?? BMI:??20.41?? General: mild distress, awake, alert, difficulty breathing with speaking HEENT: head atraumatic, EOM grossly intact, trachea midline CV:??Tachycardic rate, regular rhythm Pulm: L: clear to auscultation, R: bowel sounds lower, air movement can be heard in the apex Abd: soft, nontender, nondistended, no rebound or guarding Ext: moving all extremities spontaneously Skin: no rash on limited exam, warm and well-perfused Neuro: grossly intact Assessment/Plan Artemio is an 83 year old male with a past medical history of CAD status post stent in April 14 currently on aspirin and Plavix, hypertension, urinary retention requiring straight cath and known diaphragmatic hernia who presents as a??transfer from [place]??with worsening shortness of breath due to his diaphragmatic hernia??and a possible closed-loop bowel obstruction??within the herniated contents. ?? Currently, the patient is hemodynamically stable, though is increasingly tachycardic.?? His??labs do not show a leukocytosis??and he did not have an elevated lactate??at the [facility] (lactate 1.5). ??However,??his??bowel is quite dilated on the CT scan??and is concerning for a closed-loop obstruction through the??diaphragmatic hernia.?? Thoracic surgery is planning to take thepatient to the OR for a thoracotomy. Pending intra-operative findings and bowel viability, general surgery may need to assist with bowel reduction and/or resection. General surgery will be available for intra- operative consultation if needed. ?Please page [facility] [phone] with any questions/concerns ?Discussed with??Dr. Mukherjee Problem List/Past Medical History Ongoing No qualifying data Procedure/Surgical History No qualifying data available. Home Medications Amlodipine: 10 mg = 1 tablet, By Mouth, Daily ascorbic acid/chondroitin/glucosa/samara: By Mouth, Daily Aspirin: 81 mg = 1 tablet, By Mouth, Daily Atorvastatin: 20 mg = 1 tablet, By Mouth, Daily Azelastine Nasal: 2 sprays, Nares, Both, Daily, PRN (Other Allergies) Cholecalciferol: 25 mcg = 1 capsule, By Mouth, Daily Clopidogrel: 75 mg, By Mouth, Daily Finasteride: 5 mg = 1 tablet, By Mouth, Daily Lutein: By Mouth, Daily Melatonin Metoprolol: 25 mg = 1 tablet, By Mouth, Daily Multivitamin With Minerals: By Mouth, Daily Sulfamethoxazole/Trimethoprim: 1 tablet, By Mouth, 2 times a day Tamsulosin: 0.4 mg = 1 capsule, By Mouth, Daily Ubiquinone: 100 mg, By Mouth, Daily Allergies No Known Medication Allergies Social History Alcohol Use: Current. Frequency: 1-2 times per week. Type: Beer. Electronic Cigarette/Vaping Electronic Cigarette Use: Never. Tobacco Use: Former smoker, quit more than 30 days ago. Other: quit 1970; 0.5 ppd x 15 years. Family History No family history recorded. Lab Results Labs Last 24 Hours BLOOD COUNT & DIFF ? Event Name?? Event Result?? Date/Time?? WBC 7.2 k/mm3 06/23/23 12:40:00 RBC 3.64 m/mm3??Low 06/23/23 12:40:00 Hgb 12.2 Gm/dL??Low 06/23/23 12:40:00 Hct 34.7 %??Low 06/23/23 12:40:00 MCV 95.3 femtoliters??High 06/23/23 12:40:00 MCH 33.5 pg 06/23/23 12:40:00 MCHC 35.2 g/dL 06/23/23 12:40:00 Platelet Count 202 k/mm3 06/23/23 12:40:00 MPV 9.8 femtoliters 06/23/23 12:40:00 Nucleated RBC (Automated) 0 #/100 WBC'S 06/23/23 12:40:00 ? CHEM GENERAL ? Event Name?? Event Result?? Date/Time?? Sodium 132 mmol/L??Low 06/23/23 12:40:00 Chloride 95 mmol/L??Low 06/23/23 12:40:00 Bicarbonate Level 24 mmol/L 06/23/23 12:40:00 Anion Gap 13 06/23/23 12:40:00 BUN 14 mg/dL 06/23/23 12:40:00 Creatinine-Blood 0.9 mg/dL 06/23/23 12:40:00 Calcium, Ionized pH Corrected 1.23 mmol/L 06/23/23 12:40:00 Phosphorus 3 mg/dL 06/23/23 12:40:00 Magnesium 1.8 mg/dL 06/23/23 12:40:00 ? * Yaz MCKNIGHT, Artemio Fuller: PERFORM Event Display: Consult Authored Date: [id number] Attending attestation:??I informed the??resident??covering the thoracic surgery service that I??will be on standby??in case??the repair of the diaphragmatic hernia??requires??an abdominal approach??to either assist with reduction of the??herniated bowel??and or??resection of the affected bowel. Surgical pathology study * Event Display: Surgical Pathology Authored Date: [id number] Patient Name: ARTEMIO GALLEGO Lab Patient : 1940 (Age: 83) Collection Date: 06/23/2023 Accession Date: 06/25/2023 Sign Out Date: 06/27/2023 Tissue Source: 1:RIB #8 Final Diagnosis: Eighth rib, excision: - Portion of rib with unremarkable hematopoietic marrow. Primary Pathologist:Oscar Gómez M.D. electronically signed out by: Oscar Gómez M.D. / RICHI Gross Description: Labeled rib #8 . Received in formalin is a 2.2 x 1.7 x 0.8 cm gallegos-yellow, indurated fragment of bone. Both ends of the specimen are smooth, differentially inked green and orange; the remaining exterior surfaces are inked black. Serially sectioning reveals yellow, indurated, grossly unremarkable bony cut surfaces. No lesions or masses can be identified grossly. Two full-length cross- sections are submitted following decalcification. 1-2 pieces. (KM)* Phone #: [phone], On-Call Pathologist: [id number] Admission evaluation note * Shanell MCKNIGHT, Blanka Young: PERFORM, MODIFY, MODIFY Event Display: Admission Note Authored Date: Patient: ??CLOTHIER, ARTEMIO ? Age:??83 Years?Sex:??Male?:??1940?? Chief Complaint Diaphragmatic Hernia History of Present Illness Artemio is an 83 year old male with a past medical history of??CAD status post??stent??in March??2022, currently on aspirin and Plavix, hypertension,??urinary retention??requiring straight cath, and known diaphragmatic hernia??who presents with worsening shortness of breath.?? He recently had a fall at home??due to a syncopal episode??and was seen in the??[facility]??and??was discharged.??Aside from superficial abrasions and Over the past 2 days, he has had worsening shortness of breath, unable to take more than a couple of steps without??feeling like he was having difficulty breathing. A repeat CT scan of his??chest??was performed and showed the right diaphragmatic hernia but now with increasingly dilated bowel. His last bowel movements was two days ago and he is not passing flatus. He denies fevers/chills, nausea/vomiting. He straight caths himself twice per day at baseline and noted that he had some blood in his urine. He last ate food yesterday and last took his plavix yesterday morning. Review of Systems ROS negative except those mentioned in HPI.?? Physical Exam Vitals & Measurements T:??98.5?F?? HR:??118??(Peripheral)?? RR:??28?? BP:??165/80?? SpO2:??94%?? HT:??173??cm?? WT:??61.1??kg?? BMI:??20.41?? General: mild distress, awake, alert, difficulty breathing with speaking HEENT: head atraumatic, EOM grossly intact, trachea midline CV:??Tachycardic rate, regular rhythm Pulm: L: clear to auscultation, R: bowel sounds lower, air movement can be heard in the apex Abd: soft, nontender, nondistended, no rebound or guarding Ext: moving all extremities spontaneously Skin: no rash on limited exam, warm and well-perfused Neuro: grossly intact Assessment/Plan Artemio is an 83 year old male with a past medical history of CAD status post stent in April 14 currently on aspirin and Plavix, hypertension, urinary retention requiring straight cath and known diaphragmatic hernia who presents as a??transfer from [place]??with worsening shortness of breath due to his diaphragmatic hernia??and a possible closed-loop bowel obstruction??within the herniated contents. ?? Diagnosis:??Diaphragmatic hernia, possible closed-loop bowel obstruction Comment:??Currently, the patient is hemodynamically stable, though is increasingly tachycardic.?? His??labs do not show a leukocytosis??and he did not have an elevated lactate??at the [facility] (lactate 1.5). ??However,??his??bowel is quite dilated on the CT scan??and is concerning for a closed-loop obstruction through the??diaphragmatic hernia.?? We will plan to proceed to the operating room urgently??for a right thoracotomy??and repair of diaphragmatic hernia. ??We will??also discuss with general surgery??pending??intraoperative findings/bowel viability. ?? Plan ??? N.p.o. strict ?OR urgently for??right thoracotomy??and repair of diaphragmatic hernia ?Consult general surgery ?1 unit of platelets??prior to??the OR??to reverse Plavix ?? Please page [phone] with any questions or concerns.?? Discussed with Dr. Hansen Problem List/Past Medical History CAD s/p stent (March 2023) HTN Urinary retention ?? Procedure/Surgical History No qualifying data available. Home Medications Amlodipine: 10 mg = 1 tablet, By Mouth, Daily ascorbic acid/chondroitin/glucosa/samara: By Mouth, Daily Aspirin: 81 mg = 1 tablet, By Mouth, Daily Atorvastatin: 20 mg = 1 tablet, By Mouth, Daily Azelastine Nasal: 2 sprays, Nares, Both, Daily, PRN (Other Allergies) Cholecalciferol: 25 mcg = 1 capsule, By Mouth, Daily Clopidogrel: 75 mg, By Mouth, Daily Finasteride: 5 mg = 1 tablet, By Mouth, Daily Lutein: By Mouth, Daily Melatonin Metoprolol: 25 mg = 1 tablet, By Mouth, Daily Multivitamin With Minerals: By Mouth, Daily Sulfamethoxazole/Trimethoprim: 1 tablet, By Mouth, 2 times a day Tamsulosin: 0.4 mg = 1 capsule, By Mouth, Daily Ubiquinone: 100 mg, By Mouth, Daily Allergies fentaNYL??(SEVERE URINE RETENTION) Social History Alcohol Use: Current. Frequency: 1-2 times per week. Type: Beer. Electronic Cigarette/Vaping Electronic Cigarette Use: Never. Tobacco Use: Former smoker, quit more than 30 days ago. Other: quit 1970; 0.5 ppd x 15 years. Family History No family history recorded. Radiology Reviewed radiology on [facility]. Lab Results Labs Last 24 Hours BLOOD COUNT & DIFF ? Event Name?? Event Result?? Date/Time?? WBC 7.2 k/mm3 06/23/23 12:40:00 RBC 3.64 m/mm3??Low 06/23/23 12:40:00 Hgb 12.2 Gm/dL??Low 06/23/23 12:40:00 Hct 34.7 %??Low 06/23/23 12:40:00 MCV 95.3 femtoliters??High 06/23/23 12:40:00 MCH 33.5 pg 06/23/23 12:40:00 MCHC 35.2 g/dL 06/23/23 12:40:00 Platelet Count 202 k/mm3 06/23/23 12:40:00 MPV 9.8 femtoliters 06/23/23 12:40:00 Nucleated RBC (Automated) 0 #/100 WBC'S 06/23/23 12:40:00 ? CHEM GENERAL ? Event Name?? Event Result?? Date/Time?? Sodium 132 mmol/L??Low 06/23/23 12:40:00 Chloride 95 mmol/L??Low 06/23/23 12:40:00 Bicarbonate Level 24 mmol/L 06/23/23 12:40:00 Anion Gap 13 06/23/23 12:40:00 BUN 14 mg/dL 06/23/23 12:40:00 Creatinine-Blood 0.9 mg/dL 06/23/23 12:40:00 Calcium, Ionized pH Corrected 1.23 mmol/L 06/23/23 12:40:00 Phosphorus 3 mg/dL 06/23/23 12:40:00 Magnesium 1.8 mg/dL 06/23/23 12:40:00 ? * Jeniffer Hansen MD: PERFORM Event Display: Admission Note Authored Date: Dr. Hansen's Attestation: I saw, personally examined, and evaluated the patient on 06/23/2023 for evaluation and management of??incarcerated right??diaphragmatic hernia with??closed- loop??colonic obstruction. I discussed the patient with the thoracic surgery team??and personally reviewed the laboratory results, imaging studies and cardiopulmonary data as available.?? A 12 part system review was??negative other than the??pertinent positives and negatives detailed in the??history of present illness. ??Unless??otherwise noted, agree with the patient reported symptoms, physical exam findings, assessment and plan as documented in thoracic surgery admission note below. ?? PAST SURGICAL HISTORY: Right robotic assisted hemidiaphragm plication, REZUM prostate reduction procedure, hydrocele repair, facial squamous cell carcinoma removal, bilateral laparoscopic inguinal hernia repair, bilateral knee arthroscopy, cardiac catheterization ?? FAMILY HISTORY: Mother - breast cancer; grandparents - heart disease ?? Cardiology * Event Display: Cardiac Rhythm Strips Authored Date: * Event Display: Cardiac Rhythm Strips Authored Date: Hospital Progress note * Colon Ralph TRUJILLO: PERFORM, SIGN, VERIFY Event Display: Progress Note Hospital Authored Date: Patient: ARTEMIO GALLEGO Age: 83 years Sex: Male : 1940 Associated Diagnoses: None Author: Colon Ralph TRUJILLO Findings Problem Related to Alteration in Gastrointestinal : Alteration in Gastrointestinal Func/new 06/28/2023 10:00 EST Alteration in GI status Related to Abdominal Surgery Goals & Outcomes, Gastrointestinal Establish a regular pattern of elimination for pt, Nutritional intake is adequate for metabolic needs, Pt will achieve normal/improved fluid balance, Pt will have a bowel movement prior to discharge, Pt will maintain adequate GI function appropriate for pt, Ptwill maintain normal elimination patterns, Pt will resume/maintain adequate hemodynamic status, Pt w ill tolerate age appropriate diet prior to discharge, Pt will not experience s/s of infection priorto discharge Interventions, Gastrointestinal Assess/monitor abdomen for distention, tenderness, Assess/monitor abdominal girth & bowel function, Assess/monitor bowel pattern, bowel sounds, flatus, Assess/monitor number of bowel movements, Assess/monitor color, quantity, quality, consistency of stoo, Assess/monitor pt for nausea, vomiting, Assess/monitor intake & output, Assess if pt tolerating diet, DVT prophylaxis as ordered BH Goals/Interventions, Gastrointestinal Yes Gastrointestinal, Problem Start 06/27/2023 20:24 Reviewed plan with, Gastrointestinal Patient Patient Progression, Gastrointestinal Pt progressing according to plan . Narrative/Incidental Pateint is alert and oriented x four. Patient denies pain. Patient on room air and lung sounds dimished and clear. Patient's vital signs are WNL see unit's flowsheets. Patient tolerating diet and as had bowel movement since repair of incarcerated hernia and small bowel obstruction. Patient postop devleoped pneumothorax and chest tube removed on 06/25 dessing is still draining will change dressing. Patient still hyponatremic this am and reported results to thoracic surgery via text. No response onlaboratory results. Patient also has history of urinary retention but as voided twice since 0600. Plan on bladder scanning patient just before discharge and will perform a intermittent catheterization if needed. Patient told he would be discharge today, no current orders posted. Only question patient had for this nurse. Patient in bed, low lock position and call burnette with patient. . Discharge Information Case Management Discharge Plan : Case Management Discharge Plan Data 06/28/2023 9:16 EST Discharge Level of Care at Discharge Home/Retirement/Foster Care Discharge [facility] [phone] Name of Agency [facility]1 [facility] Categories #1 Physical Therapy Rehabilitation Discharge : Rehab Discharge Index 06/27/2023 9:47 EST Walker: distance 20-50 06/26/2023 9:26 EST Walker: distance 10-20 06/24/2023 8:15 EST Comments on treatment indicated Comments on treatment indicated Walker: distance 10-20 Distance pt will ambulate 75' Full chart review completed Yes Hospital course presents as a transfer from [place] with worsening shortness of breath due to hisdiaphragmatic hernia and a possible closed-loop bowel obstruction within the herniated contents. Other findings Pt was on RA; O2 sats maintained 94-100% throughout eval. Pt with chest tube, adames cath, IV Plan of care PT Gait training, Transfer training, Therapeutic exercise, Functional Activities, Balance training * Oanh Banegas: MODIFY, PERFORM Event Display: Progress Note Hospital Authored Date: Patient: ??CLOTHIER, ARTEMIO ? Age:??83 Years?Sex:??Male?:??1940?? Attending:??Jeniffer Hansen MD?.Admission Date: 06/23/2023? Subjective: Patient seen and examined, events noted. No acute events from a renal perspective. Upon my evaluation, the patient was lying in bed eating breakfast. He is??A&Ox3. Denies any??complaints at this time including LAU, n/v.??He states that he is working towards??getting his appetiteback.? Objective: Vitals:?? Temperature?97.5 ?(07:40) Systolic Blood Pressure?142 ?(08:34) Diastolic Blood Pressure?87 ?(08:34) Pulse?86 ?(08:34) SpO2?95 ?(07:40) Respiratory Rate?19 ?(07:40) ? Intake and Output:?? Intake and Output Results?? This visit (24 hour periods starting at 07:00 EST)? 06/28/23 *?? 06/27/23?? 06/26/23?? Total Summary?Intake mL?? --?? --?? --?Output mL?? --?? 1,625?? 2,120?Fluid Balance ?? --?? -1,625?? -2,120?? Intake (0)? Output (3)?Chest, right lateral mL?? --?? --?? 60?Urine Catheter mL?? --?? 1,350?? 2,060?Urine Voided mL?? --?? 275?? --?Total?? --?? 1,625?? 2,120?? Counts (3)?Urine Catheter mL?? --?? 1,350?? 2,060?Urine Count ?? 1?? --?? --?Urine Voided mL?? --?? 275?? --? * This column has not completed the indicated time period.? Physical Exam:?? Patient is lying down flat in no acute distress, no crackles or wheeze. ?? No JVD appreciated on exam. No lower extremity edema, alert and oriented. ?? No dialysis access. ?? Laboratory Workup: BLOOD COUNT & DIFF WBC 8.6 k/mm3 ()?? 06/28/2023 05:03 RBC 3.64 m/mm3 (Low)?? 06/28/2023 05:03 Hgb 12.3 Gm/dL (Low)?? 06/28/2023 05:03 Hct 34.7 % (Low)?? 06/28/2023 05:03 MCV 95.3 femtoliters (High)?? 06/28/2023 05:03 MCH 33.8 pg ()?? 06/28/2023 05:03 MCHC 35.4 g/dL ()?? 06/28/2023 05:03 Platelet Count 256 k/mm3 ()?? 06/28/2023 05:03 RDW-SD 43.4 femtoliters ()?? 06/28/2023 05:03 MPV 10.1 femtoliters ()?? 06/28/2023 05:03 Nucleated RBC (Automated) 0.0 #/100 WBC'S ()?? 06/28/2023 05:03 Abs. NRBC 0.0 k/mm3 ()?? 06/28/2023 05:03 Abs. Neut 6.4 k/mm3 ()?? 06/28/2023 05:03 Abs. Lymph 0.9 k/mm3 ()?? 06/28/2023 05:03 Abs. [place] 1.0 k/mm3 ()?? 06/28/2023 05:03 Abs. Eo 0.1 k/mm3 ()?? 06/28/2023 05:03 Abs. Baso 0.0 k/mm3 ()?? 06/28/2023 05:03 Neut % 73.9 % ()?? 06/28/2023 05:03 Lymph % 10.8 % (Low)?? 06/28/2023 05:03 [place] % 11.7 % (High)?? 06/28/2023 05:03 Eos % 1.2 % ()?? 06/28/2023 05:03 Baso % 0.5 % ()?? 06/28/2023 05:03 Imm Gran 1.9 % ()?? 06/28/2023 05:03 Abs. Imm Gran 0.2 k/mm3 ()?? 06/28/2023 05:03 ?? CHEM GENERAL Sodium 127 mmol/L (Low)?? 06/28/2023 05:03 Potassium 3.8 mmol/L ()?? 06/28/2023 05:03 Chloride 92 mmol/L (Low)?? 06/28/2023 05:03 Bicarbonate Level 24 mmol/L ()?? 06/28/2023 05:03 Anion Gap 11 ()?? 06/28/2023 05:03 BUN 15 mg/dL ()?? 06/28/2023 05:03 Creatinine-Blood 0.9 mg/dL ()?? 06/28/2023 05:03 Estimated GFR Creatinine 79 ML/MIN/1.73 M2 ()?? 06/28/2023 05:03 Calcium, Ionized pH Corrected 1.21 mmol/L ()?? 06/28/2023 05:03 Phosphorus 2.3 mg/dL (Low)?? 06/28/2023 05:03 Magnesium 1.8 mg/dL ()?? 06/28/2023 05:03 ?? URINE OTHER Est Creatinine Clearance 51.86 mL/min ()?? 06/28/2023 06:30 ? Imaging Findings: No new imaging. ? Assessment/Plan: Artemio Gallego is a 83 YOM, pmhx of CAD s/p stenting in Mar 2023 on ASA and Plavix, HTN, urinary retention requiring straight catheterization (BID at baseline), and known diaphragmatic hernia, who initially presented here on 06/22 from [facility] with progressive SOB x2 days found to have an incarcerated R diaphragmatic hernia with closed loop colonic obstruction. Patient underwent an urgent R thoracotomy, reduction of intrathoracic small bowel/colon and repair of diaphragmatic defect on 06/22. Renal is being consulted for hyponatremia. ?? Hyponatremia -Sodium decreased to 127 today. If patient is getting discharged today, would emphasize necessity of drawing repeat sodium levels as early as 07/02/23. -TSH and cortisol levels to further assess for etiology of hyponatremia. -Kidney function stable with creatinine of 0.9. ?? Recommendations: -Adjust fluid restriction to 1L/day. -Repeat sodium levels as early as 07/02/23 with follow-up in clinic. -Ordered TSH and cortisol levels. -Recommendations communicated to primary team, we will continue to follow ?? Oanh Banegas, [facility] Medical Student * Evie Marcy TRUJILLO: VERIFY, PERFORM, SIGN Event Display: Progress Note Hospital Authored Date: Patient: ARTEMIO GALLEGO Age: 83 years Sex: Male : 1940 Associated Diagnoses: None Author: Marcy Case RN Findings Problem Related to Alteration in Gastrointestinal : Alteration in Gastrointestinal Func/new 06/27/2023 20:00 EST Alteration in GI status Related to Abdominal Surgery Goals & Outcomes, Gastrointestinal Establish a regular pattern of elimination for pt, Nutritional intake is adequate for metabolic needs, Pt will achieve normal/improved fluid balance, Pt will have a bowel movement prior to discharge, Pt will maintain adequate GI function appropriate for pt, Ptwill maintain normal elimination patterns, Pt will resume/maintain adequate hemodynamic status, Pt w ill tolerate age appropriate diet prior to discharge, Pt will not experience s/s of infection priorto discharge Interventions, Gastrointestinal Assess/monitor abdomen for distention, tenderness, Assess/monitor abdominal girth & bowel function, Assess/monitor bowel pattern, bowel sounds, flatus, Assess/monitor number of bowel movements, Assess/monitor color, quantity, quality, consistency of stoo, Assess/monitor pt for nausea, vomiting, Assess/monitor intake & output, Assess if pt tolerating diet, Elevate HOB to facilitate lung expansion, prevent aspiration, Teach/encourage deep breath & coughexercises, Teach/encourage use of incentive spirometer Goals/Interventions, Gastrointestinal Yes Gastrointestinal, Problem Start 06/27/2023 20:24 Reviewed plan with, Gastrointestinal Patient Patient Progression, Gastrointestinal Plan Initiation . Alteration in Respiratory Function (new) : Alteration in Respiratory Function/new 06/27/2023 20:00 EST Alteration in Resp Status Related to Thoracic Surgery Goals & Outcomes, Respiratory Pt will maintain/resume baseline physical assessment, Pt will maintain/resume normal fluid/electrolyte balance Interventions, Respiratory Assess for and report S&S of respiratory distress, Teach/encourage use of incentive spirometer Goals/Interventions, Respiratory Yes Respiratory, Problem Start 06/23/2023 5:21 Reviewed Plan with, Respiratory Patient Patient Progression, Respiratory Patient progressing according to plan . Nursing Data Cardiac Data. : Cardiac Data. 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 Gastrointestinal Data. : Gastrointestinal Data. 06/27/2023 20:00 EST Abdomen Soft, Non-tender Bowel Sounds LUQ Present Bowel Sounds RUQ Present Bowel Sounds LLQ Present Bowel Sounds RLQ Present Last Bowel Movement 06/26/2023 GI WNL except . Respiratory/Pulmonary Data. : Respiratory/Pulmonary Data. 06/27/2023 20:00 EST Mode of Delivery (Oxygen) Room air Respiratory Symptoms None Respiratory effort Unlabored Chest expansion Symmetrical Accessory Muscles use No Patient participation Cooperative Cough Non-productive Respiratory pattern Regular Left Upper Lobe Breath Sounds Clear Right Upper Lobe Breath Sounds Clear Right Middle Lobe Breath Sounds Clear Left Lower Lobe Breath Sounds Clear Right Lower Lobe Breath Sounds Diminished Respiratory distress None Respiratory Treatment(s) Cough and deep breathe, Incentive spirometry Respiratory WNL except . Narrative/Incidental Patient remains in IMC, tele: SR, SA with PVC's, alert and oriented x4. Lung souds clear, dim rightbase. Spo2 94% at room air. ABdomen soft, nontender, +BS. HAs a dressing to right lateral side, with serous drainage. Patient denies pain and refusing scheduled tylenol. Requested for Bisacodyl supp,given around 2100. Straight cath'd at 2130 for only 400 cyu urine. No LE edema, +PP. Fading bruse to left side of eyebrown/forehead. BP 190's/100's, Dr. Yun ordered 10 mg of lLabetalol, BP's still >160's. Given a dose of Hydralazine 10 mg at 2430, will recheck BP. Patient given trazodone as sleepaid and requested to not be woken up. Call burnette within reach.. Note * Ralph Clayton RN: PERFORM Event Display: Discharge/Transfer Note Hospital Authored Date: [id number] Nursing Discharge Note Entered On: 06/28/2023 16:35 EST Performed On: 06/28/2023 16:34 EST by Ralph Clayton RN Nursing Discharge Note 2 Discharge Time : 06/28/2023 16:34 EST Discharge Level of Care at Discharge : Home/Retirement/Foster Care Discharge VNA/Hospice/Home Care(v001) : [facility] [phone] Patient Left Unit Via : Wheelchair Patient Accompanied Off Unit with : Significant other DC Instructions Provided & Signed by Pt : Yes Patient Understands D/C Instructions : Yes Verbalized Understanding of D/C Plan By : Patient Patient Instructions Discharge Signed : Yes Did Pt have Specialty Bed or Wound Vac : No Colon RNRalph - 06/28/2023 16:34 EST * Clementina DAS, Drake R: SIGN Clementina DO, Drake R: SIGN, MODIFY Drake Mcrae DO R: MODIFY, SIGN, VERIFY, PERFORM Mehnaz Castano NP: PERFORM, MODIFY Mehnaz Castano NP: MODIFY Event Display: Discharge/Transfer Note Hospital Authored Date: [id number] Patient: ARTEMIO GALLEGO Age: 83 years Sex: Male : 1940 Associated Diagnoses: None Author: Mehnaz Castano NP Discharge Information Admission Date: 06/23/2023 Discharge Date 06/28/2023 Primary Care Provider: Winifred Dorsey MD Principal Discharge Diagnosis Diaphragmatic hernia: Present on admission - yes. Medications MEDICATION LIST (Selected) Prescriptions Prescribed MiraLax oral powder for reconstitution: = 17 Gm, By Mouth, Daily, for 7 days, # 119 Gm, 0 Refills, Acute 07/04/23 11:51:00 EDT, 06/27/23 11:51:00 EST, REC Powder, [facility], Partial fill upon patient request if the prescription is for a schedule II opioid drug., 17 Gm By Mout... acetaminophen 325 mg oral tablet: 975 mg, 3, tablet, By Mouth, Every 6 hours, for 7 days, # 84 tablet, Refills 0, Tot. Refills 0, Acute 07/04/23 11:50:00 EDT, 06/27/23 11:50:00 EST, Route to PharmacyElectronically, [facility], Partial fill upon patient request if the pr... clopidogrel 75 mg oral tablet: 75 mg, By Mouth, Daily, # 90 tablet, Refills 3, Tot. Refills 3, Maintenance, 04/13/23 12:41:00 EST, Route to Pharmacy Electronically, [facility], Partial fill upon patient request if the prescription is for a schedule II opioid drug., 173,... oxyCODONE 5 mg oral tablet: 5 mg, 1, tablet, By Mouth, Every 4 hours, PRN, for 7 days, # 42 tablet,Refills 0, Tot. Refills 0, Acute 07/04/23 11:50:00 EDT, Pain , Moderate, 06/27/23 11:50:00 EST, Route to Pharmacy Electronically, [facility], Partial fill upon patie... Documented Medications Documented Co Q-10: = 100 mg, By Mouth, Daily, 0 Refills, Maintenance, 11/28/22 15:06:00 EDT, Partial fill upon patient request if the prescription is for a schedule II opioid drug. Glucosamine Chondroitin: By Mouth, Daily, 0 Refills, Maintenance, 11/28/22 15:05:00 EDT, Partial fill upon patient request if the prescription is for a schedule II opioid drug. Lutein: By Mouth, Daily, 0 Refills, Maintenance, 11/28/22 15:05:00 EDT, Partial fill upon patient request if the prescription is for a schedule II opioid drug. Melatonin: 0 Refills, Maintenance, 11/28/22 15:06:00 EDT, Partial fill upon patient request if the prescription is for a schedule II opioid drug. Metoprolol Succinate ER 25 mg oral tablet, extended release: 1 tablet = 25 mg, By Mouth, Daily, # 30 tablet, 0 Refills, Maintenance, 11/28/22 15:02:00 EDT, ER Tablet, Partial fill upon patient request if the prescription is for a schedule II opioid drug. Theratrum Complete with Lutein and Lycopene: By Mouth, Daily, 0 Refills, Maintenance, 11/28/22 15:06:00 EDT, Partial fill upon patient request if the prescription is for a schedule II opioid drug. Vitamin D3 1000 intl units oral capsule: 1 capsule = 25 mcg, By Mouth, Daily, # 100 capsule, 0 Refills, Maintenance, 11/28/22 15:04:00 EDT, Capsule, Partial fill upon patient request if the prescription is for a schedule II opioid drug. amLODIPine 10 mg oral tablet: 10 mg, 1, tablet, By Mouth, Daily, # 30 tablet, Refills 0, Maintenance, 11/28/22 15:02:00 EDT, Partial fill upon patient request if the prescription is for a schedule IIopioid drug. aspirin 81 mg oral delayed release tablet: 81 mg, 1, tablet, By Mouth, Daily, # 30 tablet, Refills 0, Maintenance, 04/13/23 9:07:00 EST, Partial fill upon patient request if the prescription is for aschedule II opioid drug. atorvastatin 20 mg oral tablet: 1 tablet = 20 mg, By Mouth, Daily, # 30 tablet, 0 Refills, Maintenance, 11/28/22 15:03:00 EDT, Tablet, Partial fill upon patient request if the prescription is for a schedule II opioid drug. azelastine 137 mcg/inh (0.1%) nasal spray: 2 sprays, Nares, Both, Daily, PRN Other Allergies, # 30 mL, 0 Refills, Maintenance, 11/28/22 15:04:00 EDT, [place], Partial fill upon patient request if theprescription is for a schedule II opioid drug. finasteride 5 mg oral tablet: 1 tablet = 5 mg, By Mouth, Daily, # 30 tablet, 0 Refills, Maintenance, 11/28/22 15:03:00 EDT, Tablet, Partial fill upon patient request if the prescription is for a schedule II opioid drug. tamsulosin 0.4 mg oral capsule: 0.4 mg, 1, capsule, By Mouth, Daily, # 30 capsule, Refills 0, Maintenance, 11/28/22 15:03:00 EDT, Partial fill upon patient request if the prescription is for a schedule II opioid drug.. Aware of diagnosis: patient. Procedures PREOPERATIVE DIAGNOSES: 1. Right diaphragmatic hernia with incarcerated colon and small bowel and closed-loop colon obstruction POSTOPERATIVE DIAGNOSES: 1. Same PROCEDURES: 1. Right vertical muscle-sparing thoracotomy 3. Reduction of intrathoracic small bowel and colon 4. Pledgeted repair of diaphragm defect (15 cm) ANESTHESIA: General endotracheal anesthetic with single lung ventilation. ZUBROD SCORE: 3 SPECIMENS: 1. Eighth rib BLOOD PRODUCTS: Platelets for reversal of Plavix therapy ATTENDING SURGEON: Jeniffer Hansen M.D. M.P.H. . Discharge condition: good Code status: Full Hospital Course Hospital course Mr. Gallego is an 83yo man with a PMH including CAD s/p stent in March 2023 currently on aspirin and Plavix, hypertension, urinary retention requiring straight cath and known diaphragmatic herniawho presented as a transfer from [place] with worsening shortness of breath due to his diaphragmatic hernia and a possible closed-loop bowel obstruction within the herniated contents. He is now s/pright thoracotomy with reduction of intrathoracic small bowel and colon and pledgeted repair of diaphragmatic defect. A chest tube remained in place to -20 suction post op and was removed on POD #3. A post removal CXRwas stable without a pneumothorax. He was started on clear liquids post op and remains on clears until POD #2 when he was advanced to a regular diet on POD #2. He had return of bowel function on POD #3. He was found to be hyponatremic on POD #2. He remained on IV fluids at that time which were discontinued once he was taking adequate PO. POD #3 his Na remained low and renal was consulted. They recommended fluid restriction (1.5L/day), Na level BID, obtain urine Na, and encourage adequate oral intake. Na level normalized on POD # 4. However was low again on POD #5. He was further fluid restrictedto 1L per day per renal recommendations. Renal planning for follow up next week, Na level to be drawn on Sunday. Upon discharge, he was tolerating a regular diet, ambulating, usual home straight cath regimen, andpain was controlled with oral pain medication. At the time of discharge, he was alert and oriented x3. CASILLAS. Head normocephalic, atraumatic. Neck supple, no lymphadenopathy. Lungs CTA. RRR, no M/G/R. Abdomen soft, usual post op tenderness. Healing incisions. Good CMS. No peripheral edema. Chest tubesite dressing intact without staining. Incisions clean and dry, no erythema or edema. He was discharged with new prescriptions for Tylenol. Oxycodone, and Miralax. He should only take the medication on the list provided at the time of discharge. Significant Results Results: Vital signs : VITAL SIGNS SECTION 06/28/2023 10:00 EST Temperature 98.2 DegF Temperature Route Axillary Heart Rate Monitored 70 bpm Respiratory Rate 16 br/min Systolic Blood Pressure 143 mm Hg H Diastolic Blood Pressure 93 mm Hg H Pulse Pressure 50 mm Hg Oxygen Saturation 96 % Mode of Delivery (Oxygen) Room air , Laboratory : LABORATORY 06/28/2023 6:30 EST Est Creatinine Clearance 51.86 mL/min 06/28/2023 5:03 EST WBC 8.6 k/mm3 RBC 3.64 m/mm3 L Hgb 12.3 Gm/dL L Hct 34.7 % L MCV 95.3 femtoliters H MCH 33.8 pg MCHC 35.4 g/dL Platelet Count 256 k/mm3 RDW-SD 43.4 femtoliters MPV 10.1 femtoliters Nucleated RBC (Automated) 0.0 #/100 WBC'S Abs. NRBC 0.0 k/mm3 Abs. Neut 6.4 k/mm3 Abs. Lymph 0.9 k/mm3 Abs. [place] 1.0 k/mm3 Abs. Eo 0.1 k/mm3 Abs. Baso 0.0 k/mm3 Neut % 73.9 % Lymph % 10.8 % L [place] % 11.7 % H Eos % 1.2 % Baso % 0.5 % Imm Gran 1.9 % Abs. Imm Gran 0.2 k/mm3 Sodium 127 mmol/L L Potassium 3.8 mmol/L Chloride 92 mmol/L L Bicarbonate Level 24 mmol/L Anion Gap 11 BUN 15 mg/dL Creatinine-Blood 0.9 mg/dL Estimated GFR Creatinine 79 ML/MIN/1.73 M2 Calcium, Ionized pH Corrected 1.21 mmol/L Phosphorus 2.3 mg/dL L Magnesium 1.8 mg/dL TSH 2.56 uIU/mL Cortisol Level 13.8 ??g/dL . Discharge Plan Diet/Activity/Patient Education/Follow Up Follow Up with: Jason Link You will need follow up with the renal team for low sodium. They will call you with an appointment. ; Winifred Dorsey MD Within 1 week Please call for a follow up appointment for management of high blood pressure.; Jeniffer Hansen 07/02/2023 3:00 PM Please have blood drawn in the Medical Office Building [address] at 1:00PM, the have a chest xray in the [facility] Radiology Department 3rd floor at 2:00PM then follow up with Dr Hansen in the Medical Office Building [address] at 3:00PM. Discharge Disposition Discharge: home with VNA. Home Health Face to Face I certify that this patient is under my care and that I or an allowed non- physician practitioner working with me, had a [id number] encounter with the patient on this date: 06/27/2023. The encounter with the patient was in whole, or in part, for the following medical condition, whichis the primary reason for home health care: Diaphragmatic hernia. Nursing: Home safety evaluation. Physical Therapy: Functional mobility training, Home exercise program to strengthen, increase ROM. Homebound due to: Inability to leave home without assistance/supervision. Physician Signature: Jeniffer Hansen MD . Therapies Wound care: Leave chest tube dressing in place for 48 hours. Once removed, keep area clean and dry.May wash with warm water and mild soap. May cover with a bandaid for comfort. A small amount of drainage is normal. Call for increased amount of drainage from chest tube site.. Prescription Given this visit:Prescriptions Acetaminophen (acetaminophen 325 mg oral tablet) 3 tablet = 975 mg, By Mouth, Every 6 hours, # 84 tablet, 0 Refills, [address] [address] [phone] Next Dose: Oxycodone (oxyCODONE 5 mg oral tablet) 1 tablet = 5 mg, By Mouth, Every 4 hours, # 42 tablet, 0 Refills, [address] [address] [phone] Next Dose: Polyethylene Glycol 3350 (MiraLax oral powder for reconstitution) 17 Gm, By Mouth, Daily, # 119 Gm, 0 Refills, [facility] [address] [address] [phone] Next Dose: Patient Instructions Given:No qualifying data available Education Given:Web[employer] Ignite Patient Education - Thoracic Post Thoracoscopy Patient Follow-up:Added Follow Up Time Frame Comments Jeniffer Hansen 07/02/2023 15:00 Please have a chest xray in the [facility] Radiology Department 3rd floor at2:00PM then follow up with Dr Hansen in the Medical Office Building [address] at 3:00PM Winifred Dorsey MD * Drake Mcrae DO: PERFORM Event Display: Discharge/Transfer Note Hospital Authored Date: [id number] ATTENDING ADDENDUM I have personally seen and examined this patient on 06/28/2023, performing a substantial portion of the evaluation and management as part of a shared visit with the advanced practice provider. I agree with the above history and physical exam findings. I have additionally personally reviewed this patient's lab results and imaging studies. I agree with the assessment and plan as documented in the note below with the following addendum. Patient continues to do well. Bowel function has returned and patient has had 2 bowel movements andis passing flatus normally. He is tolerating a regular diet without difficulty. His breathing is significantly improved. He will be discharged home with VNA services. He will follow-up in the thoracic surgical clinic with Dr. Hansen for postoperative follow-up visit on 07/02/2023. Please contact the thoracic surgery service ([phone]) or my office with any questions. Drake Mcrae DO, FACS Thoracic Surgeon Division of Thoracic Surgery Department of Surgery [address] Sheikh[address] [place] [address] () [phone] * Ban Beasley RN: PERFORM, SIGN, VERIFY Event Display: Case Management Discharge Plan Authored Date: [id number] Patient: ARTEMIO GALLEGO Age: 83 years Sex: Male : 1940 Associated Diagnoses: None Author: Ban Beasley RN Discharge Plan Case Management Discharge Plan : Case Management Discharge Plan Data 06/28/2023 9:16 EST Discharge Level of Care at Discharge Home/Retirement/Foster Care Discharge VNA/Hospice/Home Care [facility] [phone] [facility] Categories #1 Physical Therapy * Ralph Clayton RN: PERFORM Event Display: Patient Education/Instruction Authored Date: [id number] Inpatient Adult Discharge Instructions. [address] [address] Name: ARTEMIO GALLEGO : 1940?? Visit: 06/23/2023 10:59?? Current Date: 06/28/2023 15:29 ?? Account: [id number]?? Inpatient Adult Discharge Instructions We would like [...] and their families. Surveys are administered by [employer] ?? If further treatment with your primary care physician or another doctor is recommended, it is important for you to keep the appointment. Call your primary care physician or return to the Emergency Department immediately if your condition worsens, fails to improve, or new symptoms develop. If you need to find a doctor, you can call [facility] We[employer]In for a referral at [phone] or toll free at [phone]) or log in to [email or web address] ?? [facility], in keeping with [facility] guidance, no longer requires face masks for [...] a health care hazel of your choosing. [employer] is a website that allows you to securely view your medical information including your hospital discharge summary, office visit summaries, medications and follow-up visits. You can also request appointments, renew medications, and request access to your medical information using a health care hazel of your choosing, or just ask a question. You can enroll at [email or web address] or register during your next office visit. You have been discharged from [facility], Patient Care Unit: SW5??. If you have any questions regarding these instructions, including results of studies pending, afteryou leave, please call us and we will be happy to assist you 13/11. [facility] Your Care Team Attending Physician Jeniffer Hansen MD?? Consulting Providers Jeniffer Hansen MD?? Discharging Providers Eyad ARTEAGA, Mehnaz Mondragon Your Diagnosis Diaphragmatic hernia Tests Performed Below is a partial list of the tests performed during your hospitalization. You may have had other tests and procedures not included in this list. Please discuss all test results with your provider. ABG POC CARTRIDGE BASE EXCESS POC CARTRIDGE BUN Calcium Ionized CALCIUM IONIZED POC CART COMPLETE CBC WITH DIFF CORTISOL CREATININE ELECTROLYTES GLUCOSE POC CARTRIDGE HEMATOCRIT POC CARTRIDGE HEMOGLOBIN POC CARTRIDGE HOLD LAVENDER TUBE Lytes MAGNESIUM Na Level Osmolality PH CORRECTED IONIZED CALCIUM PHOSPHORUS POTASSIUM POC CARTRIDGE SODIUM POC CARTRIDGE TSH Type and Screen Urine Osmolality CXR W/ Frontal and Lat XR Chest 2 Views Frontal and Lat XR Chest Portable * Add On Lab Order?? BUN?? Blood Culture?? Blood Culture #2?? CBC w/ Differential?? COVID-19 (2019 Novel Coronavirus) PCR?? Creatinine?? Electrolytes (Lytes)?? Ionized Calcium (Calcium Ionized)?? Magnesium Level?? Phosphorus Level?? RBCs on Hold?? Sodium Urine (Na Urine)?? Transfuse Platelets?? Primary Care Provider Winifred Dorsey MD? Advance Directive Health Care Proxy on File Yes - Health Care Proxy Discharge Vitals Temperature: 97.9 DegF Height: 173 cm Pulse Rate: 86 bpm Weight: 61.1 kg Respiratory Rate: 21 br/min Body Mass Index: 20.41 kg/m2 Systolic Blood Pressure: 132 mm Hg Body surface area: 1.71 Diastolic Blood Pressure: 78 mm Hg ?? Oxygen Saturation:??93 %??Low ?? Studies Pending All studies ordered during this hospital stay have been completed unless listed below. Please discuss all pending results with your provider listed above in these instructions. ?? Add On Lab Order?? BUN?? Blood Culture?? Blood Culture #2?? CBC w/ Differential?? COVID-19 (2019 Novel Coronavirus) PCR?? Creatinine?? Electrolytes (Lytes)?? Ionized Calcium (Calcium Ionized)?? Magnesium Level?? Phosphorus Level?? RBCs on Hold?? Sodium Urine (Na Urine)?? Transfuse Platelets?? What to do next Instructions From Your Doctor ?? Orders? 06/28/23 13:54:00 EST?? Scheduled Follow-Up Appointments Sunday 8:30 AM EDT ?? With: Clementina DAS, Drake Matt Where: [facility] Thoracic Surgery [address] [place] [address] Drive [address] [place] [address]- Status: Pending You Need to Schedule the Following Appointments Follow Up with??Jeniffer Hansen When:??07/02/2023 03:00 PM EDT Why: Please have blood drawn in the Medical Office Building [address] at 1:00PM, the have a chest xray in the [facility] Radiology Department 3rd floor at 2:00PM then follow up with Dr Hansen in the MedicalOffice Building [address] at 3:00PM Where: Medical Office Building, [address] [facility] [place] [address]- Business (1) Follow Up with??Jason Link Why: You will need follow up with the renal team for low sodium. ??They will call you with an appointment. Where: [address] [place] [address] [address] [facility] [place] [address]- Business (1) Follow Up with??Winifred Dorsey MD When:??Within 1 week Why: Please call for a follow up appointment for management of high blood pressure. Where: [address] [facility] [place] [address] Business (1) Discharge Medications ARTEMIO GALLEGO :1940 Visit Date:06/23/2023 Medications: Please continue your medications until treatment is completed or stopped by your provider. Medications not listed below should be discontinued. Discuss any questions related to medications with your provider. What How Much When Why Instructions Next Dose New Acetaminophen (acetaminophen 325 mg oral tablet) 3 tab(s) Oral Every 6 hours Diaphragmatic hernia Duration: 7 Days Pickup at [facility] 3 New Oxycodone (oxyCODONE 5 mg oral tablet) 1 tab(s) Oral Every 4 hours as needed for Pain , Moderate Diaphragmatic hernia Duration: 7 Days Pickup at [facility] 3 New Polyethylene Glycol 3350 (MiraLax oral powder for reconstitution) 17 gram Oral Daily Duration: 7 Days Pickup at [facility] 3 Unchanged Amlodipine (amLODIPine 10 mg oral tablet) 1 tab(s) Oral Daily Unchanged ascorbic acid/ chondroitin/ glucosa/ samara (Glucosamine Chondroitin) Oral Daily Unchanged Aspirin (aspirin 81 mg oral delayed release tablet) 1 tab(s) Oral Daily 06/28 @0900 Unchanged Atorvastatin (atorvastatin 20 mg oral tablet) 1 tab(s) Oral Daily 06/28 Unchanged Azelastine Nasal (azelastine 137 mcg/ inh (0.1%) nasal spray) 2 spray(s) Nares, Both Daily as needed for Other Allergies Unchanged Cholecalciferol (Vitamin D3 1000 intl units oral capsule) 1 capsule Oral Daily Unchanged Clopidogrel (clopidogrel 75 mg oral tablet) 75 Milligram Oral Daily 06/2800 Unchanged Finasteride (finasteride 5 mg oral tablet) 1 tab(s) Oral Daily Unchanged Lutein Oral Daily Unchanged Melatonin Unchanged Metoprolol (Metoprolol Succinate ER 25 mg oral tablet, extended release) 1 tab(s) Oral Daily 06/2800 Unchanged Multivitamin With Minerals (Theratrum Complete with Lutein and Lycopene) Oral Daily Unchanged Tamsulosin (tamsulosin 0.4 mg oral capsule) 1 capsule Oral Daily Unchanged Ubiquinone (Co Q-10) 100 Milligram Oral Daily Pharmacy Information [facility] 3: [address] [place] [address] [phone] ?? What How Much When Comments Stop Taking Sulfamethoxazole/ Trimethoprim (Bactrim 400 mg-80 mg oral tablet) 1 tab(s) Oral Twice a day Prescription Given During Visit Acetaminophen (acetaminophen 325 mg oral tablet) - 3 tablet = 975 mg, By Mouth, Every 6 hours, # 84tablet, 0 Refills, [address] [address] [phone]?? Oxycodone (oxyCODONE 5 mg oral tablet) - 1 tablet = 5 mg, By Mouth, Every 4 hours, # 42 tablet, 0 Refills, [address] [address] [phone]?? Polyethylene Glycol 3350 (MiraLax oral powder for reconstitution) - 17 Gm, By Mouth, Daily, # 119 Gm, 0 Refills, [place] [address] [phone]?? Laboratory Results Below is a partial list of the most recent Laboratory test results done prior to this discharge. You may have had other tests and procedures not included in this list. Please discuss all test resultswith your provider. Est Creatinine Clearance - 51.86 mL/min (06/28/2023) PLT Available - PT (06/23/2023) PLT Unit ID - [id number] (06/23/2023) RBC Available - RE (06/23/2023) RBC Unit ID - [id number] (06/23/2023) [id number] (06/23/2023) ? ?Surgical Pathology - Patient Name: ARTEMIO GALLEGO
Lab
Patient : 1940 (Age: 83)
Collection Date: 06/23/2023
Accession Date: 06/25/2023
Sign Out Date: 06/27/2023

Tissue Source:
1:RIB #8

Final Diagnosis:
Eighthrib, excision:
- Portion of rib with unremarkable hematopoietic marrow.
<br/ >
Primary Pathologist:Oscar Gómez M.D.
electronically signed out by: Les Casas / RICHI

Gross Description:<br/&g t;Labeled rib #8 . Received in formalin is a 2.2 x 1.7 x 0.8 cm gallegos-yel low, indurated fragment of bone. Both ends of the specimen are smooth, differentially inked green and orange; the remaining exterior surfaces are inked black. Serially sectioning reveals yellow, indurated, grossly unremarkable bony cut surfaces. No lesions or masses can be identified grossly. Two full-length cross-sections are submitted following decalcifica tion.
1-2 pieces. (KM)*

Phone #: [phone], On-Call Pathologist: [id number] ABG POC CARTRIDGE (06/23/2023) ???pH (POC) POC Cartridge - 7.53???pCO2 (POC) POC Cartridge - 29.7 mm Hg???pO2 (POC) POC Cartridge - 177 mm Hg???Estimated Bicarbonate (POC) POC Cart - 24.8 mmol/L???% O2 Sat Arterial (POC) POC Cartridge - 100 %???Specimen Type - Blood Gas - ARTERIAL BASE EXCESS POC CARTRIDGE (06/23/2023) ???Base Excess (POC) POC Cartridge - 2 BUN (06/28/2023) ???BUN - 15 mg/dL Calcium Ionized (06/27/2023) ???Calcium, Ionized pH Corrected - 1.20 mmol/L CALCIUM IONIZED POC CART (06/23/2023) ???Ionized Calcium (POC) POC Cartridge - 1.12 mmol/L COMPLETE CBC WITH DIFF (06/28/2023) ???WBC - 8.6 k/mm3???RBC - 3.64 m/mm3???Hgb - 12.3 Gm/dL???Hct - 34.7 %???MCV - 95.3 femtoliters???MCH - 33.8 pg???MCHC - 35.4 g/dL???Platelet Count - 256 k/mm3???RDW-SD - 43.4 femtoliters???MPV - 10.1 femtoliters???Nucleated RBC (Automated) - 0.0 #/100 WBC'S???Abs. NRBC - 0.0 k/mm3???Abs. Neut - 6.4 k/mm3???Abs. Lymph - 0.9 k/mm3???Abs. [place] - 1.0 k/mm3???Abs. Eo - 0.1 k/mm3???Abs. Baso - 0.0 k/mm3???Neut % - 73.9 %???Lymph % - 10.8 %???[place] % - 11.7 %???Eos % - 1.2 %???Baso % - 0.5 %???Imm Gran - 1.9 %???Abs. Imm Gran - 0.2 k/mm3 CORTISOL (06/28/2023) ???Cortisol Level - 13.8 ??g/dL CREATININE (06/28/2023) ???Creatinine-Blood - 0.9 mg/dL???Estimated GFR Creatinine - 79 ML/MIN/1.73 M2 ELECTROLYTES (06/28/2023) ???Sodium - 127 mmol/L???Potassium - 3.8 mmol/L???Chloride - 92 mmol/L???Bicarbonate Level - 24 mmol/L???Anion Gap - 11 GLUCOSE POC CARTRIDGE (06/23/2023) ???Glucose (POC) POC Cartridge - 108 HEMATOCRIT POC CARTRIDGE (06/23/2023) ???Hematocrit (POC) POC Cartridge - 31 % HEMOGLOBIN POC CARTRIDGE (06/23/2023) ???Hemoglobin (POC) POC Cartridge - 10.5 Gm/dL HOLD LAVENDER TUBE (06/25/2023) ???Hold Lavender Top - SPECIMEN DISCARDED AFTER 24 HOURS. [place]ytes (06/27/2023) ???Sodium - 133 mmol/L???Potassium - 4.0 mmol/L???Chloride - 95 mmol/L???Bicarbonate Level - 26 mmol/L???Anion Gap - 12 MAGNESIUM (06/28/2023) ???Magnesium - 1.8 mg/dL Na Level (06/26/2023) ???Sodium - 135 mmol/L Osmolality (06/26/2023) ???Osmolality - 269 mOs/kg PH CORRECTED IONIZED CALCIUM (06/28/2023) ???Calcium, Ionized pH Corrected - 1.21 mmol/L PHOSPHORUS (06/28/2023) ???Phosphorus - 2.3 mg/dL POTASSIUM POC CARTRIDGE (06/23/2023) ???Potassium (POC) POC Cartridge - 3.3 mmol/L SODIUM POC CARTRIDGE (06/23/2023) ???Sodium (POC) POC Cartridge - 131 mmol/L TSH (06/28/2023) ???TSH - 2.56 uIU/mL Type and Screen (06/23/2023) ???Blood Type - B Positive???Antibody Screen - Negative Urine Osmolality (06/26/2023) ???Osmolality, Urine Random - 232 mOsm/kg Allergies (NKA means No Known Allergies) No Known Medication Allergies Problems No qualifying data available Education Materials Below is the list of Educational Leaflet Providered with your Discharge Instructions. Web[employer] Ignite Patient Education - Thoracic Post Thoracoscopy?? Valuables and Belongings I fully understand and agree that [facility] accepts no responsibility for all my [...] to send valuables and belongings home. ?? Possessions released to: glasses sent to pacu Date for Pt to Sign Valuables/Belongings: 06/23/23 16:55:00 ?? Valuables & Belongings ?? Clothes Electronic devices Jewelry Monetary Items Personal devices Miscellaneous Medications (Valuables) Valuables at Bedside Pants, Shirt, Shoes, Undergarments, Other: Belt Cell phone, Other: Monitor goes with cell phone ? Valuables Sent Home ? Valuables Sent to Security ? Other Discharge Information ? Case Management Discharge Plan?? Discharge Plan?? Discharge Agency Information?? Discharge Level of Care at Discharge: Home/Retirement/Foster Care [facility] Dis[facility]/Hospice/Home Care: [facility] [phone] Service Categories #1: Physical Therapy ?? Pulmonary Rehab Status?? Pulmonary Rehab Discharge Status?? Respiratory Rate: 21 br/min ? Common Emergency Awareness Tips IS [...] are strongly encouraged to quit. Please call [facility] [employer] at [phone] or [phone] or log in to [email or web address] for referrals to smoking cessation programs. ?? 958 Suicide & Crisis Lifeline is available 13/11 if you or someone you know needs to find a reason to keep living. By calling 593 you'll be connected to a skilled, trained counselor at a crisis center in your area. INPATIENT DISCHARGE INSTRUCTIONS SIGNATURE ARTEMIO NAIR Location:[facility] Registration Date and Time:06/23/2023 10:59 EST Primary Care Physician: Winifred Dorsey MD, Attending Physician: Jeniffer Hansen MD, I ARTEMIO GALLEGO, have received the above patient education materials/instructions and have verbalized understanding. If ambulance or transport services are being used I further acknowledge being given a choice of service. ?? If you need to contact me, please call me at this number: . Patient/Resident Buyer Name: Patient/Resident Buyer Signature: Relationship to Patient: Witness Name/Signature: Date: * Mehnaz Castano NP: SIGN, SIGN, SIGN, PERFORM, SIGN, VERIFY, SIGN Event Display: Patient Education Handout Authored Date: [id number] * Mehnaz Castano NP: PERFORM Event Display: Patient Education Leaflets Authored Date: [id number] Thoracic Post Thoracoscopy ?? 309 Post-Thoracoscopy/Thoractomy Discharge Instructions General Care Pain Management ??? Please stay ahead of your pain.? Take prescribed pain medication EVERY 4-6 hours for the first 24-48 hours at home.? Once pain sets in, it is difficult to play catch up and control yourpain.? Pain after surgery is expected & should improve daily. ? ? Stay on top of your paincontrol.? As mentioned above, once pain sets in, it can affect you many different ways???..such as your breathing, ambulation, appetite etc. ??? You will be able to function?? more and have morestamina if you get ahead of your pain ??? If taking more than one pain medication, alternate times so you are taking pain medications every couple of hours instead of all at once Showering/Bathing ??? After your chest tube dressing is removed: ??? SHOWER every day ??? Gently wash your incisions with an antibacterial soap.? NO BATHS until all of your incisions are completely healed (check with your surgeon). Activity ??? WALK every day. Strive to walk at least 30 minutes without stopping daily. ??? NO heavy lifting, pushing, or pulling (10 lbs maximum) for 1-2 weeks after discharge. ??? Do not drive any vehicle (car, truck, golf cart, tractor etc) ??? Continue to USE your incentive spirometer every 2-3 hours for 1 week after your hospital discharge. Exercise ??? Follow your exercise sheet as instructed (see attached). Call your surgeon if you have: ??? FEVER over 101.0 F ??? Increasing chest pain, change in pain, or shortness of breath. ??? Increasing redness, swelling, pain, or drainage from an incision. Common Questions Post-Procedure? Drainage out of the chest tube site ??? Drainage out of the chest tube incision is very typical.?? Especially when coughing or bearing down.? It???s actually better for the incision to drain and have material leave the chest cavity at any time within the first 5 days at home.? Continue to cover with dry sterile dressing andchange dressing until drainage stops At the ends of my incision, there is a string or redness/ irritation ??? In order to close the incision, surgeons use a dissolvable suture beneath the top layer of skin.? At times the ends of the string can appear before the incision heals. Continue to monitor.? If there is increasing redness, swelling, pain or drainage from the incision, please call the office. When can I fly in an airplane? Depending on the surgery/cause of hospital stay there may be restrictions on flying in an airplane.? Increases in atmospheric pressure, such as flying or deep sea diving, can affect the pressure in the chest cavity.? Please check with your surgeon if you plan or have planned a trip within the next 3 months. My bowels have been irregular since surgery, what do I do? Narcotic pain medication and anesthesia can cause constipation.Upon discharge a prescription for a stool-softener/laxative was prescribed. ??? Follow the directions and take the medicine twice daily for constipation, if needed.? If you did not receive this prescription or you have not moved your bowels within 3 days of discharge, please call the office. My chest tube site is red with thick yellow drainage? This can be normal for some chest tube incisions.? Healing starts from the inside and works its way to the skin. ??? Each week from your surgery date this incision will look better. ??? The healing process is slow, so be patient.? You can address any concerns at your post operative visit and always call the office if you have any questions. ? Patient Care team information Care Team Personnel Name: Ronda Fontenot RN Position: S RN Member Role: Primary Care Nurse Name: Janell Rice RN Position: S RN Member Role: Primary Care Nurse Name: Melissa Titus RN Position: S RN Member Role: Primary Care Nurse Name: Fabiola Fontanez NP Position: [facility] Associate Professional Member Role: Lifetime Consulting Provider Address: Address: [address] [place] [address] [facility] [address] Name: Jason Link MD Position: [facility] Renal MD Member Role: Lifetime Consulting Physician Address: Address: [address] [place] [address] [facility] [address] Name: Mariela Golden Position: S RN Member Role: Primary Care Nurse Name: Winifred Dorsey MD Position: Reference Physician Member Role: PCP Address: Address: [address] [place] [address] [place] [address] [place] Care Team Related Persons Name: YANNICK GALLEGO Address: home [address] [place] [address]
--- OUTSIDE RECORDS SUMMARY | 2023-12-12 06:10 | XMS_ITS | Continuity of Care Document ---
Author Organization [facility] Address [address] [place] [address] [address], [address] [place] [address]- Care Team Providers Care Floor Specialist Name Role Phone Winifred Dorsey MD Primary Care Physician Encounter [facility] Date(s): 07/23/23 - 08/22/23 [facility] [address] [place] [address] Drive [address] [place], [place] [address] Allergies, Adverse Reactions, Alerts No Known Medication [...] mL, 0 Refills, Maintenance, 11/28/22 15:04:00 EDT, [place], Partial fill upon patient request if the [...] 04/13/23 12:41:00 EST,Route to Pharmacy Electronically, [id number], Partial fill upon patient [...] Member Role: Primary Care Nurse Name: Fabiola Fonatnez NP Position: [facility] Associate Professional Member Role: Lifetime Consulting Provider Address: Address: [address] [place], [place] [address] [address] Name: Jason Link MD Position: [facility] Renal MD Member Role: Lifetime Consulting Physician Address: Address: [address] [place], [place] [address]E [facility] [address] Name: Mariela Golden Position: S RN Member Role: Primary Care Nurse Name: Juan Carlos Gilbert RN Position: S RN Member Role: Primary Care Nurse Name: Winifred Dorsey MD Position: Reference Physician Member Role: PCP Address: Address: [address] [place] [address] [place] [address] [place] Care Team Related Persons Name: KYM PEREYRANDY Address: home [address] [place] [address]
--- OUTSIDE RECORDS SUMMARY | 2023-12-12 06:10 | XMS_ITS ---
Author Organization [facility] Address [address] [place] [address] Care Team Providers Care Handle Bender Name Role Phone Winifred Dorsey Primary Care Provider REASON FOR VISIT CAD s/p 3 stents in 03/2023, MVP and MR on echo, stress test 02/2023, urinary retention- , postvoidal urine 900 ml, self cath down to 2 times a day, hypoxemia- seen pulm, need sleep study, was not completed, diaphragmatic hernia. s/p hernia repair-, BM manageable since surgery, taking Miralax and stool softeners, HTN, cognition down, forgetful, seizure, started Keppra recently, brain MRI with chronic lacumar infarcts, urinary catheterisation twice a day, recent UTI, continuing with Miralax and metamucil MEDICATIONS Medication SIG (Take, Route, Frequency, Duration) Notes Start Date End Date Status amLODIPine 10 mg 1 tab(s) orally once a day for 90 Active tamsulosin 0.4 mg 1 cap(s) orally once a day for 90 days Active atorvastatin 20 mg 1 tab(s) orally once a day for 90 days Active Metoprolol Succinate ER 25 mg Take 1 tablet by mouth once daily for 90 days Active Keppra 500 mg 1/2 tab in am and 1 tab in pm orally 2 times a day for 90 days 09/10/2023 Active Ativan 0.5 mg 1/2 tab orally once prn for 90 days 05/04/2023 Active finasteride 5MG 1 tab orally once a day for 90 days Active beta-carotene 49912 units 1 (10,000)cap( s) orally once a day Active betamethasone-clotrimazole topical 0.05%-1% 1 hazel applied topically 2 times a day for 7 Active fluticasone nasal 50 mcg/inh 1 spray(s) in each nostril Twice a day for 90 day(s) 10/11/2022 Active Lycopene 10 mg 1 tab(s) orally once daily for 30 day(s) Active clopidogrel 75 mg 1 tab(s) orally once a day Active Glucosamine Chondroitin MSM Complex 1500mg 1 tab(s) orally Once daily Active Vitamin D3 1000 intl units 1 cap(s) oral ly once a day for 30 day(s) Active CoQ10 100 mg 1 tablet orally 1-2x /day as directed for 30 day(s) Active aspirin 81 mg 1 tab(s) orally once a day Active traZODone 50 mg as directed orally a t night for 90 days 09/10/2023 Active VITAL SIGNS Heart Rate 60 /min 10/22/2023 Blood pressure systolic 118 mm/Hg 10/22/19 24 Blood pressure diastolic 68 mm/Hg 024 Height 68.11 in 10/22/2023 Weight 134 lbs 10/22/2023 BMI 20.31 kg/m2 10/22/2023 Encounters Encounter Location Date Provider Diagnosis [facility] [address] [address] 10/22/2023 Winifreddaquan RomanSunita Atherosclerotic hear t disease of sho[place] coronary artery without angina pectoris I25.10 ; Retention of urine, unspecified R33.9 ; Hypoxemia R09.02 ; Diaphragmatic hernia without obstruction or gangrene K44.9 ; Essential (primary) hypertension I10 ; Unspecified convulsions R56.9 ; Dyspnea, unspecified R06.00 ; Constipation, unspecified K59.00 ; Other amnesia R41.3 ; Insomnia, unspecified G47.00 and Hypo-osmolality and hyponatremia E87.1 ASSESSMENTS Encounter Date Diagnosis Assessment Notes Treatment Notes Treatment Clinical Notes 10/22/2023 Atherosclerotic hear t disease of sho[place] coronary artery without angina pectoris (ICD-10 - I25.10) Status post ASHLEE x 2 to 90% stenosis proximal RCA and status post ASHLEE x 1 to 70% stenosis proximal LAD on 04/13/2023. Currently on Plavix, beta gema and aspirin. 10/22/2023 Retention of urine, unspecified (ICD-10 - R33.9) Continue tamsulosin and finasteride. Self cath down to 2 times a day. To f/u with urology as advised. 10/22/2023 Hypoxemia (ICD-10 - R09.02) Mainitaining good oxygen saturation. F/u with pulmonology as advised. 10/22/2023 Diaphragmatic hernia without obstruction or gangrene (ICD-10 - K44.9) S/p surgery. Advised to call surgeon with any quesions. 10/22/2023 Essential (primary) hypertension (ICD-10 - I10) Stable. Will monitor closely. Eliminate salt, alcohol in moderation. Advised importance of weight control, diet, exercise and stress management. Cont current meds. Will cont amlodipine 10 mg per day, beta gema. 10/22/2023 Unspecified convulsions (ICD-10 - R56.9) Seen by neurology recently, currently on Keppra 250 mg in the morning and 750 mg in the night. F/u with neuro as advised. 10/22/2023 Dyspnea, unspecified (ICD-10 - R06.00) Ongoing issues with KAYE, most likely due to elevated diaphragm and diaphragmatic hernia which did not improve with surgical repair. Maintaining good oxygen saturation. F/u with pulmonary as advised. 10/22/2023 Constipation, unspecified (ICD-10 - K59.00) Add good portions of fruits, vegetables and fiber to diet, encouraged hydration. may use MiraLax daily and stool softeners. 10/22/2023 Other amnesia (ICD-1 0 - R41.3) Discussed various etiologies for symptoms,- has evidence of chronic lacunar infarcts, f/u with neuro for further evaluation and management. 10/22/2023 Insomnia, unspecifie d (ICD-10 - G47.00) Discussed sleep hygiene techniques, long-standing symptoms, managed with Ativan, discussed long-term effects of benzos. 10/22/2023 Hypo-osmolality and hyponatremia (ICD-10 - E87.1) Discussed various etiologies, will monitor closely. 10/22/2023 Other Time spent: Pre-visit: 20 minutes. Available notes and Lab Data reviewed as per HPI. Visit: 35 minutes with the patient. Planned management, education, and counseling as above. Post-visit: 10 minutes spent in documentation of visit and coordination of care. Total time spent : 65 mins. PLAN OF TREATMENT Treatment Notes Assessment Notes Atherosclerotic heart diseas e of shoal[place] coronary artery without angina pectoris Status post ASHLEE x 2 to 90% stenosis proximal RCA and status post ASHLEE x 1 to 70% stenosis proximal LAD on 04/13/2023. Currently on Plavix, beta gema and aspirin. Retention of urine, unspecified Continue tamsulosin and finasteride. Self cath down to 2 times a day. To f/u with urology as advised. Hypoxemia Mainitaining good ox ygen saturation. F/u with pulmonology as advised. Diaphragmatic hernia without obstruction or gangrene S/p surgery. Advised to call surgeon wit h any quesions. Essential (primary) hypertension Stable. Will monitor closely. Eliminate salt, alcohol in moderation. Advised importance of weight control, diet, exercise and stress management. Cont current meds. Will cont amlodipine 10 mg per day, beta gema. Unspecified convulsions Seen by neurolog y recently, currently on Keppra 250 mg in the morning and 750 mg in the night. F/u with neuro as advised. Dyspnea, unspecified Ongoing issues with KAYE, most likely due to elevated diaphragm and diaphragmatic hernia which did not improve with surgical repair. Maintaining good oxygen saturation. F/u with pulmonary as advised. Constipation, unspecified Add good porti ons of fruits, vegetables and fiber to diet, encouraged hydration. may use MiraLax daily and stool softeners. Other amnesia Discussed various et iologies for symptoms,- has evidence of chronic lacunar infarcts, f/u with neuro for further evaluation and management. Insomnia, unspecified Discussed sleep hy giene techniques, long-standing symptoms, managed with Ativan, discussed long-term effects of benzos. Hypo-osmolality and hyponatremia Discuss ed various etiologies, will monitor closely. Other Time spent: Pre-visi t: 20 minutes. Available notes and Lab Data reviewed as per HPI. Visit: 35 minutes with the patient. Planned management, education, and counseling as above. Post-visit: 10 minutes spent in documentation of visit and coordination of care. Total time spent : 65 mins. Next Appt Details Follow Up: 3 Months,Amber yuan son: Provider Name:Winifred Dorsey, 01/25/2024 03:00:00 PM, [address] [place] [address], [id number], Progress Notes * TARAN PEREYRA: [birth year] (83 yo M)Acc No.[id number]:10/22/2023 Progress Notes Patient:??ANN PEREYRA Provider:??Winifred Dorsey M.D. :1940?Age:83 Y?Sex:Marilee jj Date:10/22/2023 External Visit ID:[id number] Address:[address] [place] [address] [id number] Subjective: * Chief Complaints: * ?1. CAD s/p 3 stents in 03/2023, MVP and MR on echo, stress test 02/2023. 2. Urinary retention- , postvoidal urine 900 ml, self cath down to 2 times a day. 3. Hypoxemia- seen pulm, need sleep study, was not completed. 4. Diaphragmatic hernia. s/p hernia repair-. 5. BM manageable since surgery, taking Miralax and stool softeners. 6. HTN. 7. Cognition down, forgetful. 8. seizure, started Keppra recently. 9. brain MRI with chronic lacumar infarcts. 10. urinary catheterisation twice a day, recent UTI. 11. continuing with Miralax and metamucil. * HPI: ?HPI:? Pt presents today for a f/u. ?CAD/ASCVD:?PATIENT HERE FOR F/U.??Status post ASHLEE x 2 to 90% stenosis proximal RCA and status post ASHLEE x 1 to 70% stenosis proximal LAD on 04/13/2023 stents in 03/2023. On ASA.Plavix and statin.??ECHO??08/2022-08/2022 echocardiogram shows an atrial septal aneurysm with left excursion, mild to moderate mitral regurgitation. There is a holosystolic mitral valve prolapse of both anterior and posterior leaflets LVEF is estimated at 55 to 60%.?Urology:?UROLOGIST??followed by uro.??OTHER URINARY SYMPTOMS??H/o urinary retention, seen by Dr. Shoemaker worsening of his BPH related symptoms despite being on tamsulosin 0.4 mg and finasteride, male pelvic ultrasound confirms severe urinary retention of over 550 cc and an approximately 32 cc prostate. Pt had cystoscopy on 07/06/2022, which showed moderate trilobar obstruction of the bladder neck and prostatic urethra with 2+ trabeculation consistent with detrusor remodeling likely from his bladder outlet obstruction. H/o chronic urinary retention.? He underwent Rezum RFA in September 2022.?Currently has been self catheterising twice a day and has been quite able and ability to manage his bladder independently. ?.?Pulmonology:?c/o KAYE??Patient had complained of gradually worsening dyspnea especially with exertion over the past several months, occasional mild cough, patient had an abnormal chest x-ray, symptoms persisted, denies any orthopnea, PND, presyncope or dizziness or visual changes or chest pain. Chest CT was done to f/u on CXR, results below. Pt was subsequently seen by pulm, diagnosed with R elevated diaphragm, Unclear etiologies. ? history of PNA vs viral neuritis vs idiopathic. Pt was s/b Dr. Pettit -thoracic surgery, s/p surgery Robotic assisted right thoracoscopy with plication of right hemidiaphragm on 01/24/2022, recovered well from the surgery, but feels that he has not made any progress with his breathing despite the surgery, and has been having worsening shortness of breath. CT scan was done earlier this year which showed evidence of stool-filled colon in a diaphragmatic hernia, which Dr. Pettit had suggested possibility of laparoscopic evaluation, recently was seen by him, f/u CT scan was done, results below. Patient reports that he can hear gurgling sounds in the right chest region. Recommendations were made to address this laparoscopically, patient would like to seek a second opinion before making his decisions.by thoracic surgery at [facility] with plan of surgicalrepair. S/p hernia repair in 06/2023, doing well.?PFTs??Patient started experiencing worsening shortness of breath several months ago. Because of this in the recent past a chest x-ray was performed which shows a right diaphragmatic elevation. This was followed by a CT scan of the chest that confirmed the same with atelectasis of the right middle and lower lobes. No other abnormalities are seen on either chest cavity. PFTs were performed that show only mild restrictive disease PFT (07/14/21 initially interpreted) showed moderate restrictive vent defect with dec DLCO that normalized with lung volume correction. CT neck negative for neck mass. ?Repeat PFT after surgical plication had showed no significant changes in flow or DLCO.?.?Gastroenterology:?CONSTIPATION??Manageable symptoms, take 3 stool softeners, frequent laxative pills, multiple sources of fiber, 6 prunes.??HERNIA??Pt had evidence of large diaphragmatic hernia, followed by Dr. Barnard at [facility], s/p emergency surgery in 06/2023,? reports that symptoms are not much different in terms of his breathing.??CT SCAN ABD/PELVIS??08/2022- IMPRESSION: ?1. Increasing amount of small bowel and colon into the right hemithorax. Increasing atelectasis ?of the right lower lobe with bronchiectasis becoming more pronounced..?Hypertension:?Denies : LEG EDEMA.??Denies : ORTHOPNEA.??Denies : PAROXYSMAL NOCTURNAL DYSPNEA.??Denies : SOB.??Denies : SYNCOPE.?PATIENT HERE FOR F/U.??controlled.??MEDICATIONS??beta gema, Amlodipine, tolerating well, diuretic dcd due to elevated creat.??MED COMPLIANCE??yes.?Neurology:?MEMORY LOSS??short-term memory loss, gradual, since his recent hospitalisation, feels fogginess, reports mild decline in cognition.??SEIZURES??Pt was hospitalized in 06/2023 with confusion, LUE weakness and was found to have chronic L frontal infarcts, and bilateral independently intermittent temporal slowing.Seen by neuro recently, started on Keppra 250 mg in the morning and 750 mg in the night recently, tolerating well.??Head MRI:??06/2023-IMPRESSION:?1.? No acute intracranial findings.?2.? Small chronic lacunar infarcts in the left frontal periventricular white matter..?Obstructive Sleep Apnea:?SLEEP??Patient overnight oximetry showed sawtooth pattern suggestive of obstructive sleep apnea, had sleep study in 01/2023.?Constitutional:?c/o FATIGUE??mild.?Denies : WEIGHT LOSS.??Denies : ANOREXIA.??Denies : FEVER/CHILLS/SWEATS.??Denies : WEIGHT GAIN.??Denies : HEADACHE.?Data reviewed:?Labs??reviewed, sodium is low, RBC low.??Consult Notes:??Neurology.?? * ROS:?CONSTITUTIONAL:?Negative for?? loss of appetite, fever, weakness.?ENT:?Negative for??cold, cough, epistaxis, hearing loss, voice changes, sore throat, tinnitis.?CARDIOLOGY:?Negative for??dizziness, chest pain, palpitations, shortness of breath.?GASTROENTEROLOGY:?Negative for??nausea, heartburn, vomiting, abdominal pain, diarrhea, blood in stool.??Positive for??constipation, manageable since surgery.?MUSCULOSKELETAL:?Negative for??joint stiffness, joint swelling, leg cramps.?OPHTHALMOLOGY:?Negative for??diminished vision, eye irritation, eye drainage, blurred vision.?RESPIRATORY:?Negative for??chest congestion, cough.??Positive for??shortness of breath.?UROLOGY:?Negative for??difficulty urinating, frequent urination, hematuria, nocturia.??Positive for??urinary retention.?NEUROLOGY:?Negative for??headache, tingling, numbness.??Positive for??seizures.? * Medical History:?? * Medications:??Taking aspirin 81 mg delayed release tablet 1 tab(s) orally once a day , Taking clopidogrel 75 mg tablet 1 tab(s) orally once a day , Taking Lycopene 10 mg tab(s) 1 tab(s) orally once daily , Taking Vitamin D3 1000 intl units capsule 1 cap(s) orally once a day , Taking CoQ10 100 mg tab(s) 1 tablet orally 1-2x/day as directed , Taking Glucosamine Chondroitin MSM Complex 1500mg tablet 1 tab(s) orally Once daily , Taking beta-carotene 15559 units capsule 1 (10,000)cap(s) orally once a day , Taking betamethasone-clotrimazole topical 0.05%-1% cream 1 hazel applied topically 2 times a day , Taking fluticasone nasal 50 mcg/inh spray 1 spray(s) in each nostril Twice a day , Taking Ativan 0.5 mg tablet 1/2 tab orally once prn , Taking finasteride 5MG tablet 1 tab orally once a day , Taking amLODIPine 10 mg tablet 1 tab(s) orally once a day , Taking tamsulosin 0.4 mg capsule 1 cap(s) orally once a day , Taking atorvastatin 20 mg tablet 1 tab(s) orally once a day , Taking Metoprolol Succinate ER 25 mg tablet, extended release Take 1 tablet by mouth once daily , Taking Keppra 500 mg tablet 1/2 tab in am and 1 tab in pm orally 2 times a day , Taking traZODone 50 mg tablet as directed orally at night 1/2 tab Objective: * Vitals:??HR: 60 /min, BP: 11 8/68 mm/Hg, Ht: 68.11 in, Wt: 134 lbs, BMI:20.31Index. * Physical Examination:?GENERAL:?General Appearance:??well nourished, elderly.?HEENT:?Head:??normocephalic.??Eyes:??PERRLA, EOMI, conjunctiva clear.??Ears:??TMs normal bilaterally.??Nose:??normal.??Sinuses:??non-tender.??Throat:??no erythema or exudate.?NECK:?General:??supple.??Thyroid:??Not enlarged.??Cervical lymph nodes:??normal.??Muscles:??normal.?HEART:?PMI:??normal.??Rhythm:??regular.??Murmurs:??no.??Heart sounds:??normal.??Clicks:??no.?LUNGS:?Chest wall??R rib cage healed surgical incision.??Auscultation:??CTA bilaterally.?ABDOMEN:?General:??normal, healed laparoscopic scars.??Tenderness:??none.??Distention:??none.??Liver, Spleen:??not palpable.??Masses:??none.?EXTREMITIES:?Edema:??none.??Clubbing:??no.??Cyanosis:??no.? Assessment: * Assessment: 1.??Atherosclerotic heart di sease of [place] coronary artery without angina pectoris - I25.10??2.??Retention of urine, unspecified - R33.9??3.??Hypoxemia - R09.02??4.??Diaphragmatic hernia without obstruction or gangrene - K44.9??5.??Essential (primary) hypertension - I10??6.??Unspecified convulsions - R56.9??7.??Dyspnea, unspecified - R06.00??8.??Constipation, unspecified - K59.00??9.??Other amnesia - R41.3??10.??Insomnia, unspecified - G47.00??11.??Hypo-osmolality and hyponatremia - E87.1?? Plan: * Treatment: 2.??Retention of urine, unsp ecified?? Notes: Continue tamsulosin and finasteride. Self cath down to 2 times a day.To f/u with urology as advised.? 3.??Hypoxemia?? Notes: Mainitaining good oxygen saturation. F/u with pulmonology as advised.? 4.??Diaphragmatic hernia wit hout obstruction or gangrene?? Notes:S/p surgery. Advised to call surgeon with any quesions.? 5.??Essential (primary) hype rtension?? Notes:Stable. Will monitor closely. Eliminate salt, alcohol in moderation. Advised importance of weight control, diet, exercise and stress management. Cont current meds. Will cont amlodipine 10 mg per day, beta gema.? 6.??Unspecified convulsions? ? Notes:Seen by neurology recently, currently on Keppra 250 mg in the morning and 750 mg in the night. F/u with neuro as advised.? 7.??Dyspnea, unspecified?? Notes: Ongoing issues with KAYE, most likely due to elevated diaphragm and diaphragmatic hernia which did not improve with surgical repair. Maintaining good oxygen saturation. F/u with pulmonary as advised.? 8.??Constipation, unspecifie d?? Notes: Add good portions of fruits, vegetables and fiber to diet, encouraged hydration. may use MiraLax daily and stool softeners. ? 9.??Other amnesia?? Notes: Discussed various etiologies for symptoms,- has evidence of chronic lacunar infarcts, f/u with neuro for further evaluation and management.? 10.??Insomnia, unspecified?? Notes: Discussed sleep hygiene techniques, long-standing symptoms, managed with Ativan, discussed long-term effects of benzos.? 11.??Hypo-osmolality and hyp onatremia?? Notes: Discussed various etiologies, will monitor closely.? 12.??Others?? Notes: Time spent: Pre-visit: 20 minutes. Available notes and Lab Data reviewed as per HPI. Visit: 35 minutes with the patient. Planned management, education, and counseling as above. Post-visit: 10 minutes spent in documentation of visit and coordination of care. Total time spent : 65 mins. ? * Follow Up:??3 Months,prn * * Sign off status: Pending * Provider:??Winifred Dorsey M.D. Date:??04/2023 History and Physical Notes * HPI (History of Present Illness) Category Sub-Category Detail Notes Constitutional ANOREXIA WEIGHT LOSS FATIGUE mild FEVER/CHILLS/SWEATS WEIGHT GAIN HEADACHE Urology UROLOGIST followed by uro OTHER URINARY SYMPTOMS H/o urinary reten tion, seen by Dr. Shoemaker worsening of his BPH related symptoms despite being on tamsulosin 0.4 mg and finasteride, male pelvic ultrasound confirms severe urinary retention of over 550 cc and an approximately 32 cc prostate. Pt had cystoscopy on 07/06/2022, which showed moderate trilobar obstruction of the bladder neck and prostatic urethra with 2+ trabeculation consistent with detrusor remodeling likely from his bladder outlet obstruction. H/o chronic urinary retention. He underwent Rezum RFA in September 2022. Currently has been self catheterising twice a day and has been quite able and ability to manage his bladder independently. CAD/ASCVD ECHO 08/2022-08/2022 ec hocardiogram shows an atrial septal aneurysm with left excursion, mild to moderate mitral regurgitation. There is a holosystolic mitral valve prolapse of both anterior and posterior leaflets LVEF is estimated at 55 to 60% PATIENT HERE FOR F/U. Status post ASHLEE x 2 to 90% stenosis proximal RCA and status post ASHLEE x 1 to 70% stenosis proximal LAD on 04/13/2023 stents in 03/2023. On ASA.Plavix and statin Hypertension SOB LEG EDEMA ORTHOPNEA PAROXYSMAL NOCTURNAL DYSPNEA PATIENT HERE FOR F/U. controlled MED COMPLIANCE yes SYNCOPE MEDICATIONS beta gema, [place]ml[place] pine, tolerating well, diuretic dcd due to elevated creat Gastroenterology CONSTIPATION Manageable symp toms, take 3 stool softeners, frequent laxative pills, multiple sources of fiber, 6 prunes HERNIA Pt had evidence of l arge diaphragmatic hernia, followed by Dr. Barnard at [facility], s/p emergency surgery in 06/2023, reports that symptoms are not much different in terms of his breathing CT SCAN ABD/PELVIS 08/2022- IMPRESSION: 1. Increasing amount of small bowel and colon into the right hemithorax. Increasing atelectasis of the right lower lobe with bronchiectasis becoming more pronounced. Pulmonology PFTs Patient started experiencing worsening shortness of breath several months ago. Because of this in the recent past a chest x-ray was performed which shows a right diaphragmatic elevation. This was followed by a CT scan of the chest that confirmed the same with atelectasis of the right middle and lower lobes. No other abnormalities are seen on either chest cavity. PFTs were performed that show only mild restrictive disease PFT (07/14/21 initially interpreted) showed moderate restrictive vent defect with dec DLCO that normalized with lung volume correction. CT neck negative for neck mass. Repeat PFT after surgical plication had showed no significant changes in flow or DLCO. KAYE Patient had complained of gradually worsening dyspnea especially with exertion over the past several months, occasional mild cough, patient had an abnormal chest x-ray, symptoms persisted, denies any orthopnea, PND, presyncope or dizziness or visual changes or chest pain. Chest CT was done to f/u on CXR, results below. Pt was subsequently seen by pulm, diagnosed with R elevated diaphragm, Unclear etiologies. ? history of PNA vs viral neuritis vs idiopathic. Pt was s/b Dr. Pettit -thoracic surgery, s/p surgery Robotic assisted right thoracoscopy with plication of right hemidiaphragm on 01/24/2022, recovered well from the surgery, but feels that he has not made any progress with his breathing despite the surgery, and has been having worsening shortness of breath. CT scan was done earlier this year which showed evidence of stool-filled colon in a diaphragmatic hernia, which Dr. Pettit had suggested possibility of laparoscopic evaluation, recently was seen by him, f/u CT scan was done, results below. Patient reports that he can hear gurgling sounds in the right chest region. Recommendations were made to address this laparoscopically, patient would like to seek a second opinion before making his decisions.by thoracic surgery at [facility] with plan of surgical repair. S/p hernia repair in 06/2023, doing well Obstructive Sleep Apnea SLEEP Patient overnight oximetry showed sawtooth pattern suggestive of obstructive sleep apnea, had sleep study in 01/2023 Neurology SEIZURES [facility] with confusion, LUE weakness and was found to have chronic L frontal infarcts, and bilateral independently intermittent temporal slowing.Seen by neuro recently, started on Keppra 250 mg in the morning and 750 mg in the night recently, tolerating well Head MRI: 06/2023-IMPRESSION: 1 . No acute intracranial findings. 2. Small chronic lacunar infarcts in the left frontal periventricular white matter. MEMORY LOSS short-term memory lo ss, gradual, since his recent hospitalisation, feels fogginess, reports mild decline in cognition Data reviewed Consult Notes: Neurology Labs reviewed, sodium is low, RBC low Physical Examination Category Sub-Category Detail Notes HEENT Head: normocephalic Eyes: PERRLA, EOMI, conjun ctiva clear Nose: normal Throat: no erythema or exuda te Ears: TMs normal bilateral ly Sinuses: non-tender NECK General: supple Thyroid: Not enlarged Cervical lymph nodes: normal Muscles: normal EXTREMITIES Edema: none Cyanosis: no Clubbing: no Pulses: HEART PMI: normal Rhythm: regular Murmurs: no Heart sounds: normal Clicks: no ABDOMEN General: normal, healed l aparoscopic scars Tenderness: none Masses: none Liver, Spleen: not palpable Hernia: Distention: none GENERAL General Appearance: well nourish ed, elderly LUNGS Auscultation: CTA bilaterally Chest wall R rib cage healed galloway rgical incision
--- OUTSIDE RECORDS SUMMARY | 2023-12-12 06:10 | XMS_ITS | Continuity of Care Document ---
Author Organization [facility] Address [address] [place] [address] [address], [address] [place] [address]- Care Team Providers Care Donor Relations Coordinator Name Role Phone Sunita MCKNIGHT, Winifred Schmid Primary Care Physician [place] [facility] [place] - 07/10/23 [facility] [address] [place] [address], [address] [place] [address]- Attending Physician: Drake Mcrae DO Allergies, Adverse [...] mL, 0 Refills, Maintenance, 11/28/22 15:04:00 EDT, [place], Partial fill upon patient request if the [...] Maintenance, 04/13/23 12:41:00 EST,Route to Pharmacy Electronically, [facility], Partial fill upon patient request if the [...] oldest [Reference Range]: 1 Height 173 cm (07/03/23 2:14 PM) Weight 63.6 kg (07/03/23 2:14 PM) Oxygen Saturation [94-100 %] 95 % (07/03/23 2:14 PM) Pulse Rate [55-90 bpm] 96 bpm *H* (07/03/23 2:14 PM) Body Mass Index [18.5-24.99 kg/m2] 21.25 kg/m2 (07/03/23 2:14 PM) Blood Pressure [90-138/55-84 mm Hg] 160/ 70mm Hg *H* (07/03/23 2:14 PM) Respiratory Rate [16-30 br/min] 28 br/mi n (07/03/23 2:14 PM) Temperature [96.8-100.4 DegF] 98.1 DegF (07/03/23 2:14 PM) Mode of Delivery (Oxygen) Room air (07/03/23 2:14 PM) Blood pressure sites Arm, right (07/03/23 2:14 PM) Temperature Route Temporal (07/03/23 2:14 PM) Weight Obtained Via Standing scale (07/03/23 2:14 PM) Social History Social History Type Response Smoking Status Former smoker, quit more than 30 days ago; Other: quit 1970; 0.5 ppd x 15 years; entered on: 11/28/22 Sex Patient Care team information Care Team Personnel Name: Ronda Fontenot RN Position: [facility] RN Member Role: Primary Care Nurse Name: Janell Rice RN Position: S RN Member Role: Primary Care Nurse Name: Melissa Titus RN Position: S RN Member Role: Primary Care Nurse Name: Huseyin HOB MILL OPERATOR, Fabiola Position: [facility] Associate Professional Member Role: Lifetime Consulting Provider Address: Address: [address] [place] [address] [address] [facility] [place] [address]- Name: Jason Link MD Position: [facility] Renal MD Member Role: Lifetime Consulting Physician Address: Address: [address] [place] [address] [address] [facility] [place] [address]- Name: Mariela Golden Position: [facility] RN Member Role: Primary Care Nurse Name: Juan Carlos Gilbert RN Position: [facility] RN Member Role: Primary Care Nurse Name: Winifred Dorsey MD Position: Reference Physician Member Role: PCP Address: Address: [address] [place] [address] [place] [address] [place] Care Team Related Persons Name: YANNICK PEREYAR Address: home [address] [place] [address]
--- OUTSIDE RECORDS SUMMARY | 2023-12-12 06:10 | XMS_ITS | Continuity of Care Document ---
Author Organization [facility] Address [address] [place] [address] [address], [address] [place] [address]- Care Team Providers Care Title One Teacher Name Role Phone Winifred Dorsey MD Primary Care Physician [place] [facility] [place] 11/21/23 [facility] [address] [place] [address] Drive [address] [place], [place] [address] Attending Physician: Not on Staff, Attending MD Allergies, Adverse Reactions, Alerts No Known [...] mL, 0 Refills, Maintenance, 11/28/22 15:04:00 EDT, [place], Partial fill upon patient request if the [...] Maintenance, 04/13/23 12:41:00 EST,Route to Pharmacy Electronically, [facility], Partial fill upon [...] Care Nurse Name: Fabiola Fontanez NP Position: [facility] Associate Professional Member Role: Lifetime Consulting Provider Address: Address: [address] [place] [address] [facility] [address] Name: Jason Link MD Position: [facility] Renal MD Member Role: Lifetime Consulting Physician Address: Address: [address] [place] [address] [facility] [address] Name: Mariela Golden RN Position: S RN Member Role: Primary Care Nurse Name: Juan Carlos Gilbert RN Position: S RN Member Role: Primary Care Nurse Name: Winifred Dorsey MD Position: Reference Physician Member Role: PCP Address: Address: [address] [place] [address] [place] [address] [place] Care Team Related Persons Name: YANNICK PEREYRA Address: home [address] [place] [address]
--- OUTSIDE RECORDS SUMMARY | 2023-12-12 06:10 | XMS_ITS | Continuity of Care Document ---
Author Organization [facility] Address [address] [place], [place] [address], [address] [place] [address]- Care Team Providers Care Adolescent Coordinator Name Role Phone Winifred Dorsey MD Primary Care Physician [place] [facility] [place]/23 - 05/26/23 [facility] [address] [place] [address], [address] [place], [place] [address] Allergies, Adverse Reactions, Alerts Substance Reaction Severity [...] mL, 0 Refills, Maintenance, 11/28/22 15:04:00 EDT, [place], Partial fill upon patient request if the [...] Maintenance, 04/13/23 12:41:00 EST,Route to Pharmacy Electronically, [facility], Partial fill upon patient request [...] Reference Physician Member Role: PCP Address: Address: [address] [place] [address] [place] [address] [place] Care Team Related Persons Name: YANNICK PEREYRA Address: home [address] [place] [address]
--- OUTSIDE RECORDS SUMMARY | 2023-12-12 06:10 | XMS_ITS | Continuity of Care Document ---
Author Organization [facility] Address [address] [place] [address] [address], [address] [place] [address]- Care Team Providers Care Slash Trimmer Name Role Phone Sunita MCKNIGHT, Winifred Schmid Primary Care Physician [phone] [place] [facility] [place]): 11/01/23 - 12/01/23 [facility] [address] [place] [address] Drive [address] [place], [place] [address] Allergies, Adverse Reactions, Alerts No Known [...] mL, 0 Refills, Maintenance, 11/28/22 15:04:00 EDT, [place], Partial fill upon patient request if the [...] Maintenance, 04/13/23 12:41:00 EST,Route to Pharmacy Electronically, [facility], Partial fill upon patient request if the [...] Care Nurse Name: Fabiola Fontanez NP Position: [facility] Associate Professional Member Role: Lifetime Consulting Provider Address: Address: [address] [place] [address] [facility] [address] Name: Jason Link MD Position: [facility] Renal MD Member Role: Lifetime Consulting Physician Address: Address: [address] [place] [address] [facility] [address] Name: Mariela Golden RN Position: S RN Member Role: Primary Care Nurse Name: Juan Carlos Gilbert RN Position: S RN Member Role: Primary Care Nurse Name: Winifred Dorsey MD Position: Reference Physician Member Role: PCP Address: Address: [address] [place] [address] [place] [address] [place] Care Team Related Persons Name: YANNICK PEREYRA Address: home [address] [place] [address]
--- OUTSIDE RECORDS SUMMARY | 2023-12-12 06:10 | XMS_ITS | Continuity of Care Document ---
Author Organization [facility] Address [address] [place] [address] [address], [address] [place] [address]- Care Team Providers Care Shank Pinner Name Role Phone Winifred Dorsey MD Primary Care Physician Encounter [facility] [place](s[place] 03/19/23 - 04/18/23 [facility] [address] [place] [address], [address] [place], [place] [address] Attending Physician: Jacek Harkins Admitting Physician: AdmtrJacek Referring Physician: Admtr, Ar8 Allergies, Adverse Reactions, Alerts Substance Reaction Severity [...] mL, 0 Refills, Maintenance, 11/28/22 15:04:00 EDT, [place], Partial fill upon patient request if the [...] to Pharmacy Electronically, [facility], Partial fill upon patient request [...] Physician Member Role: PCP Address: Address: [address] [place] [address] [place] [address] [place] Care Team Related Persons Name: KYM PEREYRANDY Address: home [address] [place] [address]
--- OUTSIDE RECORDS SUMMARY | 2023-12-12 06:10 | XMS_ITS | Continuity of Care Document ---
Author Organization [facility] Address [address] [place] [address] [address], [address] [place] [address]- Care Team Providers Care Silver Service Waiter Name Role Phone Winifred Dorsey MD Primary Care Physician [place] [facility] [place] 09/11/23 - 10/11/23 [facility] [address] [place] [address] Drive [address] [place] [address]- Allergies, Adverse Reactions, Alerts No Known Medication [...] mL, 0 Refills, Maintenance, 11/28/22 15:04:00 EDT, [place], Partial fill upon patient request if the [...] Maintenance, 04/13/23 12:41:00 EST,Route to Pharmacy Electronically, [facility], Partial fill upon patient request if the [...] Care Nurse Name: Fabiola Fontanez NP Position: [facility] Associate Professional Member Role: Lifetime Consulting Provider Address: Address: [address] [place], [place] [address]E [facility] [address] Name: Jason Link MD Position: [facility] Renal MD Member Role: Lifetime Consulting Physician Address: Address: [address] [place], [place] [address]E [facility] [address] Name: Mariela Golden RN Position: S RN Member Role: Primary Care Nurse Name: Juan Carlos Gilbert RN Position: S RN Member Role: Primary Care Nurse Name: Winifred Dorsey MD Position: Reference Physician Member Role: PCP Address: Address: [address] [place] [address] [place] [address] [place] Care Team Related Persons Name: SUSANNATASHAYANNICK Address: home [address] [place] [address]
--- OUTSIDE RECORDS SUMMARY | 2023-12-12 06:10 | XMS_ITS ---
Author Organization [facility] Address [address] [place] [address] Care Team Providers Care Delivery Mgr Name Role Phone SunitaWinifred flores Primary Care Provider [phone] REASON FOR VISIT labs Encounters Encounter Location Date Provider Diagnosis [facility] [address] [address] 10/22/2023 Winifred Dorsey Hyperlipidemia, unspecified E78.5 and Hypothyroidism, unspecified E03.9 ASSESSMENTS Encounter Date Diagnosis Assessment Notes Treatment Notes Treatment Clinical Notes 10/22/2023 Hyperlipidemia, unspecified (ICD-10 - E78.5) 10/22/2023 Hypothyroidism, unspecified (ICD-10 - E03.9) PLAN OF TREATMENT Future Test Test Name Order Date Complete Blood Count W/ Diff 01/06/2024 Comprehensive Metabolic Panel 01/06/2024 Lipid Panel 01/06/2024 Thyroid Stimulating Hormone 01/06/2024 Next Appt Details Provider Name:Winifred Dorsey, 01/25/2024 03:00:00 PM, [address] [place] [address], [address], Progress Notes * RODDY ANNDOB: [birth year] (83 yo M)Acc No.[id number]:10/22/2023 Patient:??ANN PEREYRA :1940?Age:83 Y?Sex:Marilee jj Address:[address] [place] [address] * true * Date:??
--- OUTSIDE RECORDS SUMMARY | 2023-12-12 06:10 | XMS_ITS | Continuity of Care Document ---
Author Organization [facility] Address [address] [place] [address] [address], [address] [place] [address]- Care Team Providers Care Machine Adjuster Helper Name Role Phone Winifred Dorsey MD Primary Care Physician [phone] Encounter [facility] [place] Date(s): 06/08/23 - 07/08/23 [facility] [address] [place] [address], [address] [place], [place] [address] Referring Physician: Obed Mehta Allergies, Adverse Reactions, Alerts No Known Medication [...] mL, 0 Refills, Maintenance, 11/28/22 15:04:00 EDT, [place], Partial fill upon patient request if the [...] Maintenance, 04/13/23 12:41:00 EST,Route to Pharmacy Electronically, [facility], Partial fill upon patient request if the [...] Care Nurse Name: Fabiola Fontanez NP Position: [facility] Associate Professional Member Role: Lifetime Consulting Provider Address: Address: [address] [place] [address] [facility] [address] Name: Jason Link MD Position: [facility] Renal MD Member Role: Lifetime Consulting Physician Address: Address: [address] [place] [address] [facility] [address] Name: Mariela Golden Position: S RN Member Role: Primary Care Nurse Name: Juan Carlos Gilbert RN Position: S RN Member Role: Primary Care Nurse Name: Winifred Dorsey MD Position: Reference Physician Member Role: PCP Address: Address: [address] [place] [address] [place] [address] [place] Care Team Related Persons Name: YANNICK PEREYRA Address: home [address] [place] [address]
--- OUTSIDE RECORDS SUMMARY | 2023-12-12 06:10 | XMS_ITS | Continuity of Care Document ---
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 Name Role Phone Winifred Dorsey MD Primary Care Physician [phone] Encounter [facility] [place] [facility] Date(s): 07/03/23 - 07/06/[address] [address]- Discharge Disposition: A-D/C Home Attending Physician: Drake Mcrae DO Admitting Physician: Drake Mcrae DO Referring Physician: Not on Staff, Referring MD Allergies, Adverse Reactions, Alerts No Known [...] mL, 0 Refills, Maintenance, 11/28/22 15:04:00 EDT, [place], Partial fill upon patient request if the [...] 12:41:00 EST,Route to Pharmacy Electronically, [id number], Partial fill upon patient request if the [...] release 25 mg, XL Tablet, By Mouth, 07/06/23 9:00:00 EDT Start Date: 07/06/23 Stop Date: 07/06/23 Status: Completed Polyethylene Glycol Powder 1 pack/packet = 17 [...] paralysis Confirmed Active Urinary retention Confirmed Active Results Radiology Reports * Exam Date Time Procedure Performing Provider Status 07/05/23 5:55 AM Chest 2 Views Frontal and Lat Minoo Chapman; Auth (Verified) Notes: (Chest 2 Views Frontal and Lat) Reason For Exam: Follow-Up Pleural Effusion RESULT: Chest 2 Views Frontal and Lat Chest 2 Views Frontal and Lat REASON: Follow-Up Pleural Effusion; Clinical Question(s): Pleural Effusion / Pleural Effusion COMPARISON: 07/04/2023 FINDINGS: LINES AND TUBES: None. LUNGS AND PLEURA: Small right pleural effusion with persistent airspace opacity in the right lower lobe. Left lung is clear. No pneumothorax. HEART, MEDIASTINUM AND ANSHUL: Unchanged. BONES AND SOFT TISSUES: No acute abnormality. There are multilevel degenerative changes of the spine. IMPRESSION: Persistent small right pleural effusion with right basilar consolidation. WSN: [id number] Ordering Physician: Mehnaz Castano Dictated By: Iván Taveras MD Dictated Date/Time: 07/05/23 10:31 a Reviewed By: Iván Taveras MD Signed By: Iván Taveras MD Signed Date/Time: 07/05/23 10:31 am Transcribed By: JESUS Transcribed Date/Time: 07/05/23 10:30 am * Exam Date Time Procedure Performing Provider Status 07/04/23 12:30 PM Chest Single Frontal View Lizzie Hernández; Auth (Verified) Notes: (Chest Single Frontal View) Reason For Exam: s/p thoracentesis;Postop RESULT: Chest Single Frontal View Chest Single Frontal View Reason: Postop; s p thoracentesis; Clinical Question(s): Pneumothorax COMPARISON: 07/04/2023 at 6:56 AM. FINDINGS: LINES AND TUBES: None. LUNGS AND PLEURA: Markedly decreased right pleural effusion status post ultrasound-guided right thoracentesis. Persistent right lower lobe atelectasis or consolidation. Normal pulmonary vascularity. No pleural effusion. No right-sided pneumothorax is seen. HEART, MEDIASTINUM AND ANSHUL: Heart is normal in size. Normal mediastinal and hilar contour. BONES AND SOFT TISSUES: No acute abnormality. IMPRESSION: Markedly decreased right pleural effusion status post ultrasound-guided right thoracentesis. No right apical pneumothorax is seen. Persistent consolidation right lower lobe. WSN: [id number] Ordering Physician: Yoon Frank Dictated By: Russ Olmedo MD, V Dictated Date/Time: 07/04/23 12:43 p Reviewed By: Russ Olmedo MD, V Signed By: Russ Olmedo MD, V Signed Date/Time: 07/04/23 12:43 pm Transcribed By: JESUS Transcribed Date/Time: 07/04/23 12:41 pm * Exam Date Time Procedure Performing Provider Status 07/04/23 11:12 AM IR End of Case Report Au th (Verified) IR End of Case Report * Exam Date Time Procedure Performing Provider Status 07/04/23 11:12 AM US Guide Thoracentesis Imaging Debbie Brown; Auth (Verified) Notes: (US Guide Thoracentesis Imaging) Reason For Exam: Pleural effusion US Guide Thoracentesis Imaging Patient: ARTEMIO GALLEGO Study Date: 07/04/2023 Performing: Yoon Frank PA-C Referring: : 1940 Age: 83 Gender: MALE PROCEDURE: US Guided Thoracentesis INDICATION: Right pleural effusion, s/p thoracic surgery. Samples requested for testing. CLAIM CLINICIAN(S): Yoon Frank PA-C ANESTHESIA: Lidocaine was administered for local anesthesia TECHNIQUE: Informed consent for a right thoracentesis was obtained prior to the start of the procedure. A timeout procedure was done, confirming the correct patient and the correct side of procedure. The patient was brought into the ultrasound procedure suite. With the patient in a left side lying position, examination under ultrasound was performed to identify small right pleural effusion. After this was achieved successfully, and through a right lower posterolateral approach ,the skin overlying the area was prepped and draped in usual sterile manner. Following local anesthesia and using modified trocar technique a 5 Cuban Yueh catheter was advanced into the right lower posterior pleural space. About 600 cc of sanguineous fluid was removed from that space. Followup ultrasound showed almost complete resolution of the right pleural effusion. The Yueh catheter was removed. No immediate postprocedure complications were noted. PLAN: Routine post procedure monitoring. Post procedure chest x-ray is not showing evidence of pneumothorax or other complications. IMPRESSION: Successful right thoracentesis as described above. A sample was sent for requested studies. Signed By Yoon Frank PA-C On 07/04/2023 13:08:38 Signed By Yoon Frank PA-C On 07/04/2023 13:08:38 Yoon Frank PA-C SUPPLIES: Brett BRASHER 19 X 10 Dictated By: Yoon Goldberg Dictated Date/Time: 07/04/23 11:12 a Reviewed By: Yoon Goldberg Signed By: Yoon Goldberg Signed Date/Time: 07/04/23 11:12 am Transcribed By: ARTEMIO Transcribed Date/Time: 07/04/23 11:12 am * Exam Date Time Procedure Performing Provider Status 07/04/23 7:15 AM Chest 2 Views Frontal and Lat Vilma Sheriff; Auth (Verified) Notes: (Chest 2 Views Frontal and Lat) Reason For Exam: Follow-Up Pleural Effusion RESULT: Chest 2 Views Frontal and Lat Chest 2 Views Frontal and Lat Reason: Follow-Up Pleural Effusion; Clinical Question(s): Pleural Effusion COMPARISON: 07/03/2023 FINDINGS: LINES AND TUBES: None. LUNGS AND PLEURA: The only change from the previous days exam is a slight increase in the right pleural effusion. Theright lung base remains markedly abnormal. No pneumothorax. HEART, MEDIASTINUM AND ANSHUL: Heart size has remained stable. Aorta is tortuous and unfolded. A cardiac stent is in place. BONES AND SOFT TISSUES: No acute abnormality. IMPRESSION: A slight increase in the moderate sized right pleural effusion. WSN: [id number] Ordering Physician: Mehnaz Castano Dictated By: Dewayne Ralph MD Dictated Date/Time: 07/04/23 8:22 am Reviewed By: Dewayne Ralph MD Signed By: Dewayne Ralph MD Signed Date/Time: 07/04/23 8:22 am Transcribed By: JESUS Transcribed Date/Time: 07/04/23 8:20 am * Exam Date Time Procedure Performing Provider Status 07/03/23 6:[address] Abd/Pelvis W/ IV Contrast Only Jorge Hanson; Auth (Verified) Notes: (CT Abd/Pelvis W/ IV Contrast Only) Reason For Exam: Post-op diaphragmatic hernia repair with SOB, decreased bowel function;Other: RESULT: CT Abd/Pelvis W/ IV Contrast Only CT Chest W/ Contrast, CT Abd/Pelvis W/ IV Contrast Only INDICATION: Reason: Pericarditis Pericardial Effusion; Post-op diaphragmatic hernia repair with SOB; Clinical Question(s): Other:; Order Comment: TECHNIQUE: Helical CT scan of the chest, abdomen, and pelvis with IV contrast, formatted in 3 planes. 100 cc of Omnipaque 300 was administered intravenously. This study was performed without oral contrast. Weight-based protocol was performed using automatic exposure control. CTDIvol Body: 8.31 mGy, DLP Body: 636 mGy*cm. COMPARISON: None. FINDINGS: Floor Worker view findings, lines and tubes: None. Trachea and airways: Patent without evidence of tracheal or endobronchial lesion. Lungs and pleura: Moderate right pleural effusion extending into the major fissure with associated atelectasis and/or pneumonia within the right lower lobe and right middle lobe. Mild biapical parenchymal and pleural scarring. Mediastinum and anshul: No mass or hematoma. No mediastinal or hilar lymphadenopathy. No esophageal abnormality. Heart: Heart is normal in size. No pericardial effusion. Aorta: No aortic aneurysm. Pulmonary arteries: Normal caliber. No evidence of pulmonary embolism on this study performed without angiographic technique. Chest wall soft tissues: Moderately edematous right lateral chest wall musculature. There is a small collection adjacent to the muscles. Diaphragm: Intact. Liver: Normal in attenuation and morphology. No suspicious lesion. Gallbladder: No CT evidence of gallbladder pathology. Bile ducts: No biliary ductal dilation. Spleen: Normal in size. Pancreas: No suspicious lesion or ductal dilatation. Adrenal glands: No nodule. Kidneys and ureters: No hydronephrosis, stone, or suspicious lesion. There are bilateral renal cysts. Bladder: Bladder is under distended with mild wall thickening. Reproductive organs: Unremarkable. Stomach, small bowel, and large bowel: Normal caliber stomach and bowel loops. No surrounding inflammatory changes. Moderate amount of stool throughout the colon. Appendix: No evidence of acute appendicitis. Peritoneum and retroperitoneum: No ascites or pneumoperitoneum. No omental or mesenteric lesions. Lymph nodes: No enlarged lymph nodes. Blood vessels: No vascular calcifications or aneurysm. No evidence of venous thrombosis. Twisting of the vessels within the right lower quadrant likely due to mild volvulus. Abdominal and pelvic wall soft tissues: No acute abnormality. Bones: No acute abnormality. IMPRESSION: Yiksc-oe-aqemekho right pleural effusion with associated compressive atelectasis or pneumonia within the right lower lobe and right middle lobe. Possible cystitis. Recommend correlation patient's urinalysis. Moderate amount of stool throughout the colon. Hematoma versus contusion within the right lateral chest wall musculature. Likely mild volvulus within the right lower quadrant as demonstrated by twisting of the mesenteric vessels. WSN: [id number] Ordering Physician: Kelly Mast Dictated By: Dina Seals MD Dictated Date/Time: 07/03/23 11:33 p Reviewed By: Dina Seals MD Signed By: Dina Seals MD Signed Date/Time: 07/03/23 11:33 pm Transcribed By: JESUS Transcribed Date/Time: 07/03/23 11:19 pm * Exam Date Time Procedure Performing Provider Status 07/03/23 6:[address] Chest W/ Contrast Jazzmine Hanson (Verified) Notes: (CT Chest W/ Contrast) Reason For Exam: Post-op diaphragmatic hernia repair with SOB;Pericarditis/Pericardial Effusion RESULT: CT Chest W/ Contrast CT Chest W/ Contrast, CT Abd/Pelvis W/ IV Contrast Only INDICATION: Reason: Pericarditis Pericardial Effusion; Post-op diaphragmatic hernia repair with SOB; Clinical Question(s): Other:; Order Comment: TECHNIQUE: Helical CT scan of the chest, abdomen, and pelvis with IV contrast, formatted in 3 planes. 100 cc of Omnipaque 300 was administered intravenously. This study was performed without oral contrast. Weight-based protocol was performed using automatic exposure control. CTDIvol Body: 8.31 mGy, DLP Body: 636 mGy*cm. COMPARISON: None. FINDINGS: Floor Worker view findings, lines and tubes: None. Trachea and airways: Patent without evidence of tracheal or endobronchial lesion. Lungs and pleura: Moderate right pleural effusion extending into the major fissure with associated atelectasis and/or pneumonia within the right lower lobe and right middle lobe. Mild biapical parenchymal and pleural scarring. Mediastinum and anshul: No mass or hematoma. No mediastinal or hilar lymphadenopathy. No esophageal abnormality. Heart: Heart is normal in size. No pericardial effusion. Aorta: No aortic aneurysm. Pulmonary arteries: Normal caliber. No evidence of pulmonary embolism on this study performed without angiographic technique. Chest wall soft tissues: Moderately edematous right lateral chest wall musculature. There is a small collection adjacent to the muscles. Diaphragm: Intact. Liver: Normal in attenuation and morphology. No suspicious lesion. Gallbladder: No CT evidence of gallbladder pathology. Bile ducts: No biliary ductal dilation. Spleen: Normal in size. Pancreas: No suspicious lesion or ductal dilatation. Adrenal glands: No nodule. Kidneys and ureters: No hydronephrosis, stone, or suspicious lesion. There are bilateral renal cysts. Bladder: Bladder is under distended with mild wall thickening. Reproductive organs: Unremarkable. Stomach, small bowel, and large bowel: Normal caliber stomach and bowel loops. No surrounding inflammatory changes. Moderate amount of stool throughout the colon. Appendix: No evidence of acute appendicitis. Peritoneum and retroperitoneum: No ascites or pneumoperitoneum. No omental or mesenteric lesions. Lymph nodes: No enlarged lymph nodes. Blood vessels: No vascular calcifications or aneurysm. No evidence of venous thrombosis. Twisting of the vessels within the right lower quadrant likely due to mild volvulus. Abdominal and pelvic wall soft tissues: No acute abnormality. Bones: No acute abnormality. IMPRESSION: Npyex-[id number]-[id number] right pleural effusion with associated compressive atelectasis or pneumonia within the right lower lobe and right middle lobe. Possible cystitis. Recommend correlation patient's urinalysis. Moderate amount of stool throughout the colon. Hematoma versus contusion within the right lateral chest wall musculature. Likely mild volvulus within the right lower quadrant as demonstrated by twisting of the mesenteric vessels. WSN: [id number] Ordering Physician: Kelly Mast Dictated By: Dina Seals MD Dictated Date/Time: 07/03/23 11:33 p Reviewed By: Dina Seals MD Signed By: Dina Seals MD Signed Date/Time: 07/03/23 11:33 pm Transcribed By: JESUS Transcribed Date/Time: 07/03/23 11:19 pm Vital Signs Most recent to oldest [Reference Range]: 1 2 3 Height 173 cm (07/03/23 6:55 PM) 173 cm (07/03/23 4:06 PM) Weight 58.7 kg (07/03/23 4:06 PM) Oxygen Saturation [94-100 %] 97 % (07/06/23 2:00 PM) 95 % (07/06/23 12:00 PM) 95 % (07/06/23 10:00 AM) Pulse Rate [55-90 bpm] 84 bpm (07/06/23 8:31 AM) 59 bpm (07/06/23 6:00 AM) 57 bpm (07/06/23 2:00 AM) Body Mass Index [18.5-24.99 kg/m2] 19.61 kg/m2 (07/03/23 4:06 PM) Blood Pressure [90-138/55-84 mm Hg] 139/81mm Hg *H* (07/06/23 2:00 PM) 143/109mm Hg *H* (07/06/23 12:00 PM) 115/79mm Hg (07/06/23 10:00 AM) Respiratory Rate [16-30 br/min] 16 br/min (07/06/23 2:00 PM) 18 br/min (07/06/23 12:00 PM) 18 br/min (07/06/23 10:00 AM) Temperature [96.8-100.4 DegF] 97.9 DegF (07/06/23 2:00 PM) 97.5 DegF (07/06/23 10:00 AM) 97.7 DegF (07/06/23 6:00 AM) Liters per Minute 1 L/min (07/04/23 8:00 AM) 1 L/min (07/04/23 6:00 AM) 1 L/min (07/04/23 4:00 AM) Mode of Delivery (Oxygen) Room air (07/06/23 2:00 PM) Room air (07/06/23 12:00 PM) Room air (07/06/23 10:00 AM) Blood pressure sites Arm, right (07/06/23 2:00 PM) Arm, right (07/06/23 12:00 PM) Arm, right (07/06/23 10:00 AM) Temperature Route Oral (07/06/23 2:00 PM) Oral (07/06/23 10:00 AM) Oral (07/06/23 6:00 AM) Dry Weight 58.7 kg (07/03/23 4:06 PM) Social History Social History Type Response Smoking Status Former smoker, quit more than 30 days ago; Other: quit 1969; 0.5 ppd x 15 years; entered on: 11/28/22 Sex Hospital Progress note * Abby Betts RN: PERFORM, SIGN, VERIFY Event Display: Progress Note Hospital Authored Date: [id number] Patient: ARTEMIO GALLEGO Age: 83 years Sex: Male : 1940 Associated Diagnoses: None Author: Abby Betts RN Findings Problem Related to Alteration in Respiratory Function (new) : Alteration in Respiratory Function/new 07/06/2023 9:00 EDT Alteration in Resp Status Related to Other: pleural effusion Goals & Outcomes, Respiratory Pt will maintain/resume baseline physical assessment, Pt will notdevelop complications r/t mechanical ventilation, Pt will maintain adequate nutritional intake, Pt will maintain/resume normal fluid/electrolyte balance, Pt will not develop complications r/t immobility, Pt will demonstrate proper technique w/self care procedures Interventions, Respiratory Assess for and report S&S of respiratory distress, Teach/encourage use of incentive spirometer, Teach purse lip breathing as needed for breathing retraining, Teach tripod positioning to promote air exchange BH Goals/Interventions, Respiratory Yes Respiratory, Problem Start 07/04/2023 16:53 Reviewed Plan with, Respiratory Patient Patient Progression, Respiratory Patient progressing according to plan . Nursing Data Respiratory/Pulmonary Data. : Respiratory/Pulmonary Data. 07/06/2023 9:00 EDT Left Upper Lobe Breath Sounds Clear Right Upper Lobe Breath Sounds Clear Right Middle Lobe Breath Sounds Clear Left Lower Lobe Breath Sounds Clear Right Lower Lobe Breath Sounds Clear Respiratory distress None Respiratory WNL except . Evaluation PT alert and oriented x4. Speech clear and appropriate. Following commands without issue. SONJA strong, OOB ambulating to BR with assist x1, gait steady. No edema, pos PP. SR/Afib with occasional SB rate high 50s. No edema, pos PP. Incision on right side intact, well approximated, no s/s of infection. Diet advanced, tolerating well. Large BM x1, voiding without issue. Pt currently resting in bed, safety precautions in bed. pending discharge this afternoon. * Guilherme MCKNIGHT, Sandy Matt: PERFORM, MODIFY Event Display: Progress Note Hospital Authored Date: [id number] Patient: ??CLOTHIER, ARTEMIO ? Age:??83 Years?Sex:??Male?:??1940?? Subjective Patient seen and examined on a.m. rounds. ??No acute events overnight. ??Patient reports feeling well, denies any??abdominal pain. ??He has been tolerating a clear liquid diet without nausea or vomiting.?? He is passing flatus and says he does not feel bloated.?? He is voiding. Physical Exam Vitals & Measurements T:??97.7?F?? HR:??59??(Peripheral)?? RR:??15?? BP:??158/78?? SpO2:??95%?? HT:??173??cm?? WT:??58.7??kg?? BMI:??19.61?? Gen: No acute distress, awake and conversant Neuro: Alert and oriented x3 Head: Normocephalic, atraumatic Cardiac: RRR Resp: Non-labored breathing, no accessory muscle use Abdomen: Soft, non-distended, no tenderness or guarding?? Ext: No lower extremity edema bilaterally Skin: No rashes, warm and well perfused Assessment/Plan Artemio Clothier??is an 83-year-old??male with PMH of CAD s/p stent 03/2023 on DAPT, HTN, urinary retention requiring straight catheterization, and known diaphragmatic hernia who originally underwenta right-sided thoracotomy, reduction of intrathoracic small bowel and colon, and pledgeted primary repair of a 15cm diaphragmatic defect on 06/[address] Hansen. He was??discharged home on POD5.??He presented to thoracic surgery clinic on 07/02 in follow-up??and was ultimately direct admitted to thoracic surgery service for failure to thrive postoperatively. He??underwent CT??of the chest, abdomen,??and pelvis??which showed evidence of??possible volvulus in the right??lower??quadrant with??associated twisting??of the mesenteric??vessels along with significant stool burden.?? The patient??was hemodynamically stable with grossly normal labs, no evidence of ischemia on imaging, and no significantly concerning clinical findings, so he was treated conservatively with aggressive bowel regimen. Nowtolerating clear liquid diet, having bowel function, without abdominal symptoms. Recommend continued aggressive bowel regimen and diet advancement as tolerated. ?? Recommendations: -No acute surgical intervention indicated -Ok to advance diet as tolerated -Bowel regimen for heavy colonic stool burden to include docusate, Miralax, suppositories, and enema if no output with suppositories -Monitor abdominal exam -Remainder of care per thoracic surgery primary team. Green surgery to sign off ?? Please page [phone] [phone] with any questions or concerns. ?? Case discussed with attending physician: ??Mukherjee Intake and Output Intake and Output Results?? This visit (24 hour periods starting at 07:00 EDT)? 07/06/23 *?? 07/05/23?? 07/04/23?? Total Summary?Intake mL?? --?? 1,087?? 1,800?Output mL?? --?? 1,205?? 1,600?Fluid Balance ?? --?? -118?? 200?? Intake (3)?Lactated Ringers Injection 1,000 mL mL?? --?? 150?? 1,800?Oral Fluids mL?? --?? 700?? --?Oral Nutritional Supplements mL?? --?? 237?? --?Total?? --?? 1,087?? 1,800?? Output (2)?Urine Catheter mL?? --?? 400?? --?Urine Voided mL?? --?? 805?? 1,600?Total?? --?? 1,205?? 1,600?? Counts (5)?Oral Fluids mL?? --?? 700?? --?Oral Nutritional Supplements mL?? --?? 237?? --?Urine Catheter mL?? --?? 400?? --?Urine Count ?? --?? 2?? 2?Urine Voided mL?? --?? 805?? 1,600? * This column has not completed the indicated time period.?? Labs Last 24 Hours BLOOD COUNT & DIFF ? Event Name?? Event Result?? Date/Time?? WBC 7.3 k/mm3 07/06/23 02:30:00 RBC 3.33 m/mm3??Low 07/06/23 02:30:00 Hgb 11.1 Gm/dL??Low 07/06/23 02:30:00 Hct 31.2 %??Low 07/06/23 02:30:00 MCV 93.7 femtoliters 07/06/23 02:30:00 MCH 33.3 pg 07/06/23 02:30:00 MCHC 35.6 g/dL 07/06/23 02:30:00 Platelet Count 319 k/mm3 07/06/23 02:30:00 MPV 9.4 femtoliters 07/06/23 02:30:00 Nucleated RBC (Automated) 0 #/100 WBC'S 07/06/23 02:30:00 ? CHEM GENERAL ? Event Name?? Event Result?? Date/Time?? Sodium 130 mmol/L??Low 07/06/23 02:30:00 Chloride 93 mmol/L??Low 07/06/23 02:30:00 Bicarbonate Level 23 mmol/L 07/06/23 02:30:00 Anion Gap 14 07/06/23 02:30:00 Glucose Level 90 mg/dL 07/06/23 02:30:00 BUN 11 mg/dL 07/06/23 02:30:00 Creatinine-Blood 0.9 mg/dL 07/06/23 02:30:00 Phosphorus 4 mg/dL 07/06/23 02:30:00 Magnesium 1.8 mg/dL 07/06/23 02:30:00 ? * Terrell TRUJILLO, Daxa: PERFORM, SIGN, VERIFY Event Display: Progress Note Hospital Authored Date: Patient: ARTEMIO GALLEGO Age: 83 years Sex: Male : 1940 Associated Diagnoses: None Author: Terrell TRUJILLO, Daxa Findings Problem Related to Alteration in Respiratory Function (new) : Alteration in Respiratory Function/new 07/05/2023 22:00 EDT Alteration in Resp Status Related to Other: pleural effusion Goals & Outcomes, Respiratory Pt will maintain/resume baseline physical assessment, Pt will notdevelop complications r/t mechanical ventilation, Pt will maintain adequate nutritional intake, Pt will maintain/resume normal fluid/electrolyte balance, Pt will not develop complications r/t immobility, Pt will demonstrate proper technique w/self care procedures Interventions, Respiratory Assess/monitor tolerance to IV infusions; verify rate/dose, Assess for and report S&S of respiratory distress, Position for comfort & optimal oxygenation, Monitor sputum color & consistency. Report changes to MD, Teach/encourage use of incentive spirometer, Teach the proper use of inhalers Goals/Interventions, Respiratory Yes Respiratory, Problem Start 07/04/2023 16:53 Reviewed Plan with, Respiratory Patient Patient Progression, Respiratory Patient progressing according to plan . Evaluation P: alt. in resp function s/p thoracic surgery I: Per plan of care E: Pt lungs clear throughout, pt denies shortness of breath or difficulty breathing. Pt + bowel sounds, + flatus, no BM overnight. Pt denies abdominal pain. Pt oob x1 assist, pt straight cathed self in 2100 hour. Pt on RA maintaining sats above 98%. Refer to biophys, interactive flowsheets and MAR summary for further detail. . Discharge Information Rehabilitation Discharge : Rehab Discharge Index 07/05/2023 11:03 EDT Walker: distance >50 07/04/2023 8:33 EDT Comments on treatment indicated see comment Walker: distance >50 Distance pt will ambulate ~150' with RW and good balance Full chart review completed Yes Hospital course per medical chart Plan of care PT Gait training, Transfer training, Therapeutic exercise, Functional Activities, Balance training Consult note * Travis MCCLENDON, Artemio: PERFORM, MODIFY, MODIFY Event Display: Consultation Note Authored Date: [id number] Patient: ??CLOTHNATASHA, ARTEMIO ? Age:??83 Years?Sex:??Male?:??1940?? History of Present Illness Inpatient??Geriatrics consult note ? Reason for consult:??Failure to thrive ?? Referring physician:??Dr. Drake Mcrae ?? Source of Information/reliability:??Review of the medical record??and evaluation of the patient. ? History of Present Illness: 83-year-old male with a history of coronary artery disease with stenting March 2023, hypertension, urinary retention,??paralyzed right hemidiaphragm??with??robotic assisted right diaphragmatic??pli cation??01/24/2022,??large right diaphragmatic hernia??04/27/2022,??right-sided thoracotomy with reduction of anterior thoracic??small bowel and colon??and??pledgeted??primary repair of??diaphragmatic defect??06/23/2023??who was admitted to [facility]??on 07/03/2023??from thoracic surgery cli [facility]??as he presented there with weakness, fatigue, anorexia, shortness of breath??and reduced urineand bowel??function.?? Presentation was concerning for failure to thrive and he was??directly admitted to [facility]. ?? On admission he was found to have??a urinalysis that was suggestive of urinary tract infection and he was placed on ceftriaxone.?? He underwent CT scan of the chest abdomen and pelvis??and this revealed a moderate right-sided effusion.?? Effusion was drained by interventional radiology??with removal of 600??mL of fluid.?? Imaging also noted??a significant stool burden??and evidence of right lowerquadrant volvulus??with twisting of the mesenteric vessels. ?? The patient has been seen by the surgical service and followed by thoracic surgery.?? No??surgical intervention??was indicated.?? With the drainage of the patient's pleural effusion his respiratory status has improved.?? Bowel function is returning. ?? The geriatric service was??asked to consult for failure to thrive. ? Past medical history: 1.?? Coronary artery disease 2. ??Hypertension 3.?? Mitral prolapse/regurgitation 4. ??Pulmonary hypertension 5.?? Benign prostatic hypertrophy 6.?? Urinary retention??requiring self straight catheterization 7.?? History of paralyzed right hemidiaphragm,??January 2022 8.?? Right diaphragmatic hernia??04/27/2022 9. ??Occasional??insomnia ? Surgical history:?? 1.?? Bilateral inguinal hernia repair 2.?? REZUM??prostate reduction procedure 3.?? History of hydrocele repair 4.?? Facial squamous cell carcinoma removal 5.?? Bilateral laparoscopic inguinal hernia repair 6.?? Bilateral knee arthroscopy 7.?? Robotic assisted right diaphragmatic plication 01/24/2022 8.?? Large right diaphragmatic hernia repair 06/23/2023 ? 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 Family history: Mother had breast carcinoma Father had a history of EtOH use disorder, he reported he detoxed and then developed mental health issues that required hospitalization for the remainder of his life ? Functional Status:??At home the patient reports being fully functional. ??He does not require the use of an assistive device for ambulation.?? He does go on to state that during the past 1 to 2 yearshe has developed difficulty with household tasks. ??He is typically shares these tasks with his .?? He does manage his medications??and pays the bills. ??He has difficulty with sleeping??and usesmelatonin and lorazepam at home.?? He continues to drive an automobile. ??He reports that he and his ??do the shopping for the home.?? He also states that??they had been capable of going out to restaurants and movies??prior to the development of his recent health issues. ? Review of Systems Review of systems: ?? Constitutional:??No weight loss, fever, chills Eyes:??No visual loss ENT:??No hearing loss Respiratory:??Shortness of breath improved Cardiovascular:??No chest pain Gastrointestinal:??Recent anorexia Genitourinary:??Urinary retention Neurologic:??No headache, dizziness Musculoskeletal:??No muscle pain Hematologic/Lymphatics:??No bleeding or bruising Skin:??No rash or itching. Psychiatric:??No depression or anxiety. Physical Exam Vitals & Measurements T:??97.5?F?? TMIN:??97.5?F?? TMAX:??98.1?F?? HR:??74??(Monitored)?? RR:??18?? BP:??143/109?? SpO2:??95%?? Physical exam: ? General:??Well-developed well-nourished gentleman ?? HEENT:??Normocephalic atraumatic, pupils equal round reactive to light and accommodation, extraocular motor intact, nose clear, throat without erythema or exudates Cardiovascular:??Irregular rate and rhythm Respiratory:??Clear slightly diminished breath sounds Abdomen:??Soft nontender with active bowel sounds Extremities:??No edema, bruising involving the left upper extremity ? Neuro:??Patient was awake and alert. ??He was oriented. ??He was able to state that he was in the hospital??in [place]. ??He name the hospital is [facility]. ??He correctly identified the month and the year. ??He correctly identify the president.?? He easily stated the days of the week backwards. ??He also provided a history of his recent health issues and surgical interventions that he has??undergone??related to these issues. Cranial nerves:??2 through 12 appear to be grossly intact Reflexes:??2+ symmetrically Plantars:??Flexor bilaterally Sensation:??Intact to light touch in his upper and lower extremities bilaterally [id number]:??Performed accurate bilaterally Motor:??5/5 in all extremities No evidence of pronator drift Assessment/Plan ?? 83-year-old male with a history of coronary artery disease with stenting March 2023, hypertension, urinary retention,??paralyzed right hemidiaphragm??with??robotic assisted right diaphragmatic?? plication??01/24/2022,??large right diaphragmatic hernia??04/27/2022,??right-sided thoracotomy with reduction of anterior thoracic??small bowel and colon??and??pledgeted??primary repair of??diaphragmatic defect??06/23/2023??who was admitted to [facility]??on 07/03/2023??from thoracic surgery clinic??as he presented there with weakness, fatigue, anorexia, shortness of breath??and reduced urine and bowel??function.?? Presentation was concerning for failure to thrive and he was??directly admitted to [facility]. ?? Today the patient was awake and alert. ??He was oriented and attentive.?? He was able to provide a detailed review of his recent health issues??and the impact that has posed on his??lifestyle.?? He did describe that??prior to his original chest surgery??he began experiencing progressive shortness of breath.?? He was found to have??a paralyzed right hemidiaphragm on imaging.?? He described undergoing the initial surgery for??repair of this issue.?? This did not??provide a significant benefit to his??lifestyle or functional abilities as he had remained short of breath.?? He was found to have the large right diaphragmatic hernia??in April 2022.?? It was recommended that he have surgical repair for this??issue. ??He sought a second opinion??from thoracic surgery at [facility].?? It was agreed that surgical repair would be appropriate.?? He underwent this surgery on 06/23/2023??and was discharged to home.?? He now returns??10 days postoperatively??with failure to thrive. ?? Upon his arrival here he was found to have urinary tract infection which has been treated. ??He wasalso??found to have??imaging concerns of right lower quadrant volvulus with large stool burden.?? He was also found to have a large right-sided pleural effusion which required IR drainage??of 600 mL. ?? The patient's condition overall has begun to improve during this hospitalization.?? The patient reports feeling better today.?? He reports that his breathing is improved. ??He is??concerned about hisstrength and endurance.?? Bowel function is returning.?? Overall the patient is??quite pleased withhis progress thus far and is anticipating a transition to inpatient rehabilitation which is scheduled for today. ?? Overall the patient's??struggle to recover has influenced a decline in his strength and endurance.?? It is??likely to be beneficial that he transition to inpatient rehabilitation??and work with physical therapy and Occupational Therapy to regain??strength endurance and safety awareness. ??The patient also describes??recent balance issues which??is a new issue for him. ?? Today we did discuss his home environment in detail.?? He and his ??appear to function as a team with regarding the maintenance of the home.?? He does describe that he no longer does outside workaround the home and has hired services??to assist with the yard and snowplowing.?? He does state that he and his are beginning to struggle with regard to cleaning the home.?? I did suggest that he hire a cleaning??service to assist.?? In general he feels they are functioning relatively well.??The patient does have an unusual sleep pattern. ??He states he will typically??go to bed very late in the evening??at times??2 AM.?? He notes that he does have difficulty sleeping. ??He does use melatonin and lorazepam at home.?? I did assistant counsel against the use of lorazepam and did suggest there are alternatives such as trazodone. ??I suggested he speak with his primary care provider. ?? Dependent upon his functional abilities??prior to his??discharge from the rehab facility he may require in-home services??such as physical therapy. ??This would provide an assessment of the home environment and also continue to work on technique and strength and endurance in the home.?? It may be beneficial that the patient also??received??social sciences department chair for assistance with gathering??necessary services to maintain??as independent to lifestyle as possible. ?? Failure to thrive Low-level frailty Occasional insomnia Paralyzed right hemidiaphragm with repair Large right diaphragmatic hernia with repair Urinary tract infection, treated Right lower quadrant volvulus, improved Urinary retention with self straight catheterization ?? Recommendations: ?Patient is planned for transition to inpatient rehabilitation today??which in his situation isquite appropriate. ?Patient may benefit from in-home physical therapy and social work upon his discharge??from [facility] facility.?? A home evaluation by therapy may be appropriate and also??social work could provide??insight into??community services that may be of assistance??to the patient and his to maintain their independence for as long as possible in the home ?Frequent reassurance ?Mobilize the patient ??? Ambulate frequently ??? Encourage nutrition ?Minimize demands ?Attempt to maintain sleep-wake cycle ?Avoid/discontinue the use of lorazepam ??? Suggest trazodone 25 mg??p.o. q.??8 PM,??dosing time may be adjusted to soothe the patient's??home sleep-wake cycle??but should be dosed??approximately 1 hour prior to intended time of sleep ?Would continue melatonin??6 mg p.o. every 3-4 hours prior to intended time of sleep ?Avoid antipsychotics ??? Avoid anticholinergics and antihistamines ?? Artemio Robles PA-C Inpatient Geriatrics consult service Available on [facility] text Pager #[phone] ?? Problem List/Past Medical History Ongoing Coronary artery disease Diaphragm paralysis Diaphragmatic hernia Hypertension Urinary retention Medications Inpatient Acetaminophen Tablet, 650 mg, By Mouth, Every 4 hours, PRN amLODIPine 10 mg oral tablet, 10 mg, By Mouth, Daily aspirin 81 mg oral tablet, chewable, 81 mg, By Mouth, Daily atorvastatin 20 mg oral tablet, 20 mg, By Mouth, Daily at bedtime Bisacodyl Supp, 10 mg= 1 supp, Rectally, Daily, PRN Docusate Sodium Capsule, 100 mg= 1 capsule, By Mouth, 2 times a day Enoxaparin Inj, 40 mg= 0.4 mL, Subcutaneous Injection, Every 24 hours finasteride 5 mg oral tablet, 5 mg, By Mouth, Daily Labetalol Inj, 10 mg= 2 mL, IV Push Slowly, Once, PRN melatonin 3 mg oral tablet, 3 mg, By Mouth, Daily at bedtime, PRN Metoprolol Succinate ER 25 mg oral tablet, extended release, 25 mg, By Mouth, Daily Plavix 75 mg oral tablet, 75 mg, By Mouth, Daily Polyethylene Glycol Powder, 17 Gm= 1 pack/packet, By Mouth, Daily Potassium Chloride Packet, 40 mEq, By Mouth, Every 4 hours Senna 8.6 mg oral tablet, 8.6 mg= 1 tablet, By Mouth, Daily tamsulosin 0.4 mg oral capsule, 0.4 mg, By Mouth, Daily Trazodone Tablet, 25 mg, By Mouth, Daily at bedtime Home acetaminophen 325 mg oral tablet, 650 mg, By Mouth, Every 4 hours, PRN amLODIPine 10 mg oral tablet, 10 mg= 1 tablet, By Mouth, Daily aspirin 81 mg oral delayed release tablet, 81 mg= 1 tablet, By Mouth, Daily atorvastatin 20 mg oral tablet, 20 mg= 1 tablet, By Mouth, Daily azelastine 137 mcg/inh (0.1%) nasal spray, 2 sprays, Nares, Both, Daily, PRN bisacodyl 10 mg rectal suppository, 10 mg= 1 supp, Rectally, Daily, PRN clopidogrel 75 mg oral tablet, 75 mg, By Mouth, Daily, 3 refills Co Q-10, 100 mg, By Mouth, Daily Docusate Sodium Capsule, 100 mg= 1 capsule, By Mouth, 2 times a day finasteride 5 mg oral tablet, 5 mg= 1 tablet, By Mouth, Daily Glucosamine Chondroitin, By Mouth, Daily Lutein, By Mouth, Daily Melatonin Metoprolol Succinate ER 25 mg oral tablet, extended release, 25 mg= 1 tablet, By Mouth, Daily Polyethylene Glycol Powder, 17 Gm= 1 pack/packet, By Mouth, Daily Senna 8.6 mg oral tablet, 8.6 mg= 1 tablet, By Mouth, Daily tamsulosin 0.4 mg oral capsule, 0.4 mg= 1 capsule, By Mouth, Daily Theratrum Complete with Lutein and Lycopene, By Mouth, Daily traZODone 50 mg oral tablet, 25 mg, By Mouth, Daily at bedtime Vitamin D3 1000 intl units oral capsule, 25 mcg= 1 capsule, By Mouth, Daily Allergies No Known Medication Allergies Social History Alcohol Use: Current. Frequency: 1-2 times per week. Type: Beer. Electronic Cigarette/Vaping Electronic Cigarette Use: Never. Tobacco Use: Former smoker, quit more than 30 days ago. Other: quit 1969; 0.5 ppd x 15 years. 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 Heart disease: Mat. Grandfather, Mat. Grandmother, Pat. Grandfather and Pat. Grandmother. Mother had breast carcinoma Father had a history of EtOH use disorder, he reported he detoxed and then developed mental health issues that required hospitalization for the remainder of his life Lab Results Test Name Test Result Date/Time WBC 7.3 k/mm3 07/06/2023 02:30 EDT Hgb 11.1 Gm/dL 07/06/2023 02:30 EDT Hct 31.2 % 07/06/2023 02:30 EDT Platelet Count 319 k/mm3 07/06/2023 02:30 EDT Sodium 130 mmol/L 07/06/2023 02:30 EDT Potassium 3.5 mmol/L 07/06/2023 02:30 EDT Chloride 93 mmol/L 07/06/2023 02:30 EDT Bicarbonate Level 23 mmol/L 07/06/2023 02:30 EDT Anion Gap 14 07/06/2023 02:30 EDT Glucose Level 90 mg/dL 07/06/2023 02:30 EDT BUN 11 mg/dL 07/06/2023 02:30 EDT Creatinine-Blood 0.9 mg/dL 07/06/2023 02:30 EDT Estimated GFR Creatinine 84 ML/MIN/1.73 M2 07/06/2023 02:30 EDT Calcium 8.5 mg/dL 07/06/2023 02:30 EDT Phosphorus 4.0 mg/dL 07/06/2023 02:30 EDT Magnesium 1.8 mg/dL 07/06/2023 02:30 EDT * Kelly Mast MD: PERFORM Event Display: Consultation Note Authored Date: Patient: ??CLOTHIER, ARTEMIO ? Age:??83 Years?Sex:??Male?:??1940?? Chief Complaint/Reason for Consult Post-op diaphragmatic hernia repair, concern for volvulus History of Present Illness Artemio is an 83 yo M with PMH of CAD s/p stent 03/2023 on DAPT, HTN, urinary retention requiring straight catheterization, history of diaphragmatic paralysis s/p plication, and known diaphragmatic hernia who presented as a direct admit to [facility]??from [facility] on 06/22 with worsening shortness of breath and CT evidence of increasingly dilated bowel within his known??right-sided diaphragmatic hernia. Both thoracic surgery and general surgery (Dr. Mukherjee) were consulted for evaluation. He was taken to the OR on 06/[address] Hansen where he underwent a right-sided thoracotomy, reduction of intrathoracic small bowel and colon, and pledgeted primary repair of a 15cm diaphragmatic defect. He did??well??post-operatively: he??tolerated diet advancement, had return of bowel function, and was ultimately discharged home on post-operative day 5.??He presented to thoracic surgery clinic on 07/02 in follow-up??and reported??several issues since discharge including??weakness, fatigue,??loss of appetite,??shortness of breath, and??reduced??urination and??bowel function. ??Given concerns for failure to thrive??postoperatively??he was directly admitted to the thoracic surgery service for??further evaluation. ?? On admission patient??was found to have a??UTI??for which he was started??on ceftriaxone.??He??underwent CT??of the chest, abdomen,??and pelvis??which revealed??a moderate??right-sided??effusion for which??IR??is being consulted??for a??thoracentesis. Additionally he??was found to??have??evidence of??likely volvulus??seen in the right??lower??quadrant with??associated twisting??of the mesenteric??vessels.??Of note, the patient??also??has a??significant??stool burden on??imaging??and reports?? decreased??bowel??function??since discharge on 06/27. He??administered a suppository??at home??a few days??ago??with subsequent??episode of diarrhea; he??does not he continues??to pass flatus.??Endorses??mild??intermittent nausea but??no vomiting;??he has had??a??very poor??appetite and??PO intake at? ?home.??Given these??findings, a??general??surgery??consult is??being placed. Review of Systems General: No fevers, chills,??or weight loss, +fatigue HEENT: No vision changes, headache or sore throat Respiratory: +SOB, +cough Cardiac: No chest discomfort or palpitations Abdomen: No abdominal pain, +nausea, +diarrhea : Decreased frequency and amount of urination on straight catheterization Skin: No rashes, ulcers, or pruritus MSK: No myalgias or arthralgias Neuro: Generalized weakness Physical Exam Vitals & Measurements T:??97.9?F?? HR:??59??(Monitored)?? RR:??21?? BP:??153/79?? SpO2:??93%?? HT:??173??cm?? WT:??58.7??kg?? BMI:??19.61?? General:??No acute distress Neuro: Alert and oriented HEENT: Normocephalic, atraumatic, no scleral icterus, EOMI Cardiac: Regular rate and rhythm Respiratory: Symmetric chest rise bilaterally,??no increased WOB Abdomen: Soft,??non-tender,??mildly distended, non-peritonitic MSK: Moves all extremities, no deformities Skin: Warm and well perfused, no rashes. Surgical incisions c/d/i Assessment/Plan Artemio is an 83 yo M with PMH of CAD s/p stent 03/2023 on DAPT, HTN, urinary retention requiring straight catheterization, and known diaphragmatic hernia who presented as a direct admit to [facility]??from [facility] on 06/22 with worsening shortness of breath and CT evidence of increasingly dilated bowel within his known??right-sided diaphragmatic hernia. Both thoracic surgery and general surgery (Dr. Mukherjee) were consulted for evaluation. He was taken to the OR on 06/[address] Hansen where he underwent a right-sided thoracotomy, reduction of intrathoracic small bowel and colon, and pledgeted primary repair of a 15cm diaphragmatic defect. He did??well??post-operatively and was ultimately discharged home on post-operative day 5.??He presented to thoracic surgery clinic on 07/02 in follow-up??and reported??several issues since discharge including??weakness, fatigue,??loss of appetite,??shortness of breath, and??reduced??urination and??bowel function. Given concerns for failure to thrive??postoperatively??he was directly admitted to the thoracic surgery servicefor??further evaluation. He??underwent CT??of the chest, abdomen,??and pelvis??which showed evidence of??likely volvulus in the right??lower??quadrant with??associated twisting??of the mesenteric??vessels along with significant stool burden. He has had intermittent nausea and decreased bowel function at home but does continue to pass flatus. The patient is hemodynamically stable with grossly normal labs, no evidence of ischemia on imaging, and no significantly concerning clinical findings. Given concern for volvulus, general surgery is being consulted. ?? Plan: -No indication for surgical intervention at this time as patient is clinically stable with no evidence of obstruction or ischemia -Patient should remain NPO -Bowel regimen for heavy colonic stool burden to include docusate, miralax, suppositories, and enema if no output with suppositories -Monitor abdominal exam -Remainder of care per thoracic surgery primary team ?? Please page [phone] with any questions or concerns. ?? Case discussed with attending physician: ??Yaz Problem List/Past Medical History Ongoing Coronary artery disease Diaphragm paralysis Diaphragmatic hernia Hypertension Urinary retention Procedure/Surgical History No qualifying data available. Home Medications Acetaminophen: 975 mg = 3 tablet, By Mouth, Every 6 hours Amlodipine: 10 mg = 1 tablet, By [...] Daily Multivitamin With Minerals: By Mouth, Daily Oxycodone: 5 mg = 1 tablet, By Mouth, Every 4 hours, PRN (Pain , Moderate) Polyethylene Glycol 3350: 17 Gm, By Mouth, Daily Tamsulosin: 0.4 mg = 1 capsule, By Mouth, Daily Ubiquinone: 100 mg, By Mouth, Daily Allergies No Known Medication Allergies Social History Alcohol Use: Current. Frequency: 1-2 times per week. Type: Beer. Electronic Cigarette/Vaping Electronic Cigarette Use: Never. Tobacco Use: Former smoker, quit more than 30 days ago. Other: quit 1970; 0.5 ppd x 15 years. Family History Mother: Cancer of breast Mat. Grandmother: Heart disease Mat. Grandfather: Heart disease Pat. Grandmother: Heart disease Pat. Grandfather: Heart disease Lab Results Labs Last 24 Hours BLOOD COUNT & DIFF ? Event Name?? Event Result?? Date/Time?? WBC 8.6 k/mm3 07/04/23 06:18:00 RBC 3.17 m/mm3??Low 07/04/23 06:18:00 Hgb 10.8 Gm/dL??Low 07/04/23 06:18:00 Hct 30.4 %??Low 07/04/23 06:18:00 MCV 95.9 femtoliters??High 07/04/23 06:18:00 MCH 34.1 pg??High 07/04/23 06:18:00 MCHC 35.5 g/dL 07/04/23 06:18:00 Platelet Count 315 k/mm3 07/04/23 06:18:00 MPV 9.6 femtoliters 07/04/23 06:18:00 Nucleated RBC (Automated) 0 #/100 WBC'S 07/04/23 06:18:00 ? CHEM GENERAL ? Event Name?? Event Result?? Date/Time?? Sodium 130 mmol/L??Low 07/04/23 06:18:00 Chloride 95 mmol/L??Low 07/04/23 06:18:00 Bicarbonate Level 25 mmol/L 07/04/23 06:18:00 Anion Gap 10 07/04/23 06:18:00 Glucose Level 84 mg/dL 07/04/23 06:18:00 BUN 11 mg/dL 07/04/23 06:18:00 Creatinine-Blood 0.9 mg/dL 07/04/23 06:18:00 Phosphorus 3.4 mg/dL 07/04/23 06:18:00 Magnesium 1.8 mg/dL 07/04/23 06:18:00 ? Note * Abby Betts RN: PERFORM Event Display: Discharge/Transfer Note Hospital Authored Date: [id number] Nursing Discharge Note Entered On: 07/06/2023 16:04 EDT Performed On: 07/06/2023 16:03 EDT by Abby Betts RN Nursing Discharge Note 2 Discharge Time : 07/06/2023 16:00 EDT Discharge Level of Care at Discharge : long term facility Discharge Nursing Homes/Rehab Facilities : [facility] Patient Left Unit Via : Wheelchair Patient Accompanied Off Unit with : Responsible adult DC Instructions Provided & Signed by Pt : Yes Patient Understands D/C Instructions : Yes Patient Instructions Discharge Signed : Yes Discharge Comments : discharged to facility. IV removed. Report given. Family transport Did Pt have Specialty Bed or Wound Vac : No Abby Betts RN - 07/06/2023 16:03 EDT * Drake Mcrae DO R: SIGN, MODIFY Eyadsilvia ARTEAGA, Mehnaz M: MODIFY, MODIFY Eyad OUTPATIENT SURGERY RN, Mehnaz Mondragon: MODIFY, SIGN Eyad ARTEAGA, Mehnaz Mondragon: SIGN, VERIFY Eyad ARTEAGA, Mehnaz Mondragon: VERIFY, PERFORM Eyad ARTEAGA, Mehnaz Mondragon: PERFORM Event Display: Discharge/Transfer Note Hospital Authored Date: Patient: ARTEMIO GALLEGO Age: 83 years Sex: Male : 1940 Associated Diagnoses: None Author: Mehnaz Castano NP Discharge Information Admission Date: 07/03/2023 Discharge Date 07/06/2023 Primary Care Provider: Winifred Dorsey MD Principal Discharge Diagnosis Diaphragmatic hernia: Present on admission - yes. Medications MEDICATION LIST (Selected) Prescriptions Prescribed clopidogrel 75 mg oral tablet: 75 mg, By Mouth, Daily, # 90 tablet, Refills 3, Tot. Refills 3, Maintenance, 04/13/23 12:41:00 EST, Route to Pharmacy Electronically, [facility] [facility], Partial fill upon patient request if the prescription is for a schedule II opioid drug., 173,... Documented Medications Documented Co Q-10: = 100 mg, By Mouth, Daily, 0 Refills, Maintenance, 11/28/22 15:06:00 EDT, Partial fill upon patient request if the prescription is for a schedule II opioid drug. Docusate Sodium Capsule: 100 mg, 1, capsule, By Mouth, 2 times a day, Refills 0, Maintenance, 07/06/23 11:34:00 EDT, Partial fill upon patient [...] is for a schedule II opioid drug. Polyethylene Glycol Powder: 1 pack/packet = 17 Gm, By Mouth, Daily, 0 Refills, Maintenance, 07/06/23 11:34:00 EDT, Pow[place], Partial fill upon patient request if the prescription is for a schedule II opioid drug. Senna 8.6 mg oral tablet: 8.6 mg, 1, tablet, By Mouth, Daily, [...] is for a schedule II opioid drug. acetaminophen 325 mg oral tablet: 650 mg, By Mouth, Every 4 hours, [...] mL, 0 Refills, Maintenance, 11/28/22 15:04:00 EDT, [place], Partial fill upon patient request if theprescription is for a schedule II opioid drug. bisacodyl 10 mg rectal suppository: 1 supp = 10 mg, Rectally, Daily, [...] is for a schedule II opioid drug. traZODone 50 mg oral tablet: 25 mg, By Mouth, Daily at bedtime, Refills 0, Maintenance, 07/06/23 11:34:00 EDT, Partial fill upon patient request if the prescription is for a schedule II opioid drug.. Aware of diagnosis: patient. Attending Consultants Yaz MCKNIGHT, Artemio Ford Discharge condition: good Compared to admission: improved Code status: Full Hospital Course Hospital course Mr. Gallego is an 83yo man with a PMH including CAD s/p stent 03/2023 on DAPT, HTN, urinary retention requiring straight catheterization, history of diaphragmatic paralysis s/p plication, and known diaphragmatic hernia who presented as a direct admit to [facility] from [facility] on 06/22 with worsening shortness of breath and CT evidence of increasingly dilated bowel within his known right-sided diaphragmatic hernia. He was taken to the OR on 06/[address] Hansen where he underwent a right-sided thoracotomy, reduction of intrathoracic small bowel and colon, and pledgeted primary repair of a 15cm diaphragmatic defect. He did well post-operatively and was ultimately discharged home on post-operative day 5. He presented to thoracic surgery clinic on 07/02 for routine follow-up and reported several issues since discharge including weakness, fatigue, loss of appetite,shortness of breath, reduced urination and bowel function. Given concerns for failure to thrive post operatively he was being directly admitted to the thoracic surgery service for further evaluation. A CT chest at the time of admission demonstrated a moderated sized pleural effusion. He underwent aCT-guided right thoracentesis on 07/03 with evacuation of approximately 600mL of serosanguinouis fluid. He remains stable from a respiratory standpoint. Cultures and fluid studies were negative. A UA was done on admission + for UTI. He completed a 3 day course of Ceftriaxone. A CT abdomen on admission showed volvulus in the RLQ with twisting of mesenteric vessels. Green surgery (Dr. Mukherjee) was consulted on 07/03 with no indication for surgical intervention with plans for bowel rest and bowel regimen. He subsequently had 3 bowel movements and is started a clear liquid diet on 07/04 which he tolerated well. He was started on a low residue diet on 07/05 which he tolerated well. He should continue a low residue diet at the time of discharge. He should continue an aggressive bowel regimen at the time of discharge including docusate, senna, miralax and suppository. Needs to have a BM daily. Upon discharge, he was tolerating a low residue diet, ambulating with assistance, voiding, and painwas controlled with oral pain medication. At the time of discharge, he was alert and oriented x3. CASILLAS. Head normocephalic, atraumatic. Neck supple, no lymphadenopathy. Lungs CTA. RRR, no M/G/R. Abdomen soft, NT/ND. +BS. Good CMS. No peripheral edema. Incision sites healing. He was not discharged on any new medications. He should continue an aggressive bowel regimen at thetime of discharge including docusate, senna, miralax and suppository. Needs to have a BM daily. Significant Results Results: Vital signs : VITAL SIGNS SECTION 07/06/2023 10:00 EDT Temperature 97.5 DegF Temperature Route Oral Heart Rate Monitored 74 bpm Respiratory Rate 18 br/min Systolic Blood Pressure 115 mm Hg Diastolic Blood Pressure 79 mm Hg Blood pressure sites Arm, right Pulse Pressure 36 mm Hg Oxygen Saturation 95 % Mode of Delivery (Oxygen) Room air , Laboratory 07/06/2023 2:30 EDT WBC 7.3 k/mm3 RBC 3.33 m/mm3 L Hgb 11.1 Gm/dL L Hct 31.2 % L MCV 93.7 femtoliters MCH 33.3 pg MCHC 35.6 g/dL Platelet Count 319 k/mm3 RDW-SD 41.8 femtoliters MPV 9.4 femtoliters Nucleated RBC (Automated) 0.0 #/100 WBC'S Abs. NRBC 0.0 k/mm3 Sodium 130 mmol/L L Potassium 3.5 mmol/L L Chloride 93 mmol/L L Bicarbonate Level 23 mmol/L Anion Gap 14 Glucose Level 90 mg/dL BUN 11 mg/dL Creatinine-Blood 0.9 mg/dL Estimated GFR Creatinine 84 ML/MIN/1.73 M2 Calcium 8.5 mg/dL L Phosphorus 4.0 mg/dL Magnesium 1.8 mg/dL . Discharge Plan Diet/Activity/Patient Education/Follow Up Follow Up with: ; Sandra Schafer 07/24/2023 11:30 AM Please have a chest xray in the [facility] Radiology Department 3rd floor at 10:30AM then follow up with Sandra Schafer NP in the Medical Office [place] [address] at 11:30AM.. Discharge Disposition Discharge: Post Acute Care. * Drake Mcrae DO: PERFORM Event Display: Discharge/Transfer Note Hospital Authored Date: [id number] ATTENDING ADDENDUM I have personally seen and examined this patient on 07/06/2023, performing a substantial portion of the evaluation and management as part of a shared visit with the advanced practice provider. I agreewith the above history and physical exam findings. I have additionally personally reviewed this patient's lab results and imaging studies. I agree with the assessment and plan as documented in the note below with the following addendum. Patient doing very well. Breathing is improved. He is tolerating a low residue diet without difficulty. He should remain on this diet for the next several weeks. He needs to continue senna and Colacedaily with as needed Dulcolax suppositories to maintain daily bowel movements. Patient will be discharged to short-term rehab. He will follow-up in the thoracic surgical clinic on 07/24/2023 with a chest x-ray obtained 30 minutes prior to the visit. Please contact the thoracic surgery service ([phone]) or my office with any questions. Drake Mcrae DO, FACS Thoracic Surgeon Division of Thoracic Surgery Department of Surgery [address] Sheikh. [address] [place] [id number] () [phone] * Margarita Lovell RN: PERFORM, SIGN, VERIFY Event Display: Case Management Discharge Plan Authored Date: [id number] Patient: ARTEMIO GALLEGO Age: 83 years Sex: Male : 1940 Associated Diagnoses: None Author: Margarita Lovell RN Discharge Plan Case Management Discharge Plan : Case Management Discharge Plan Data 07/06/2023 14:55 EDT Discharge Level of Care at Discharge long term facility Discharge Nursing Homes/Rehab Facilities [facility] Discharge Transportation Arranged Family to transport Name of Agency #1 [facility] Service Categories #1 Occupational Therapy, Physical Therapy, Speech Therapy Service Comments #1 Patient's family to transport to [facility] today by 5pm Name of Person Notified of Transfer Artemio * Abby Betts RN: PERFORM Event Display: Patient Education/Instruction Authored Date: [id number] Inpatient Adult Discharge Instructions. [facility] [address] [place] [address] Name: ARTEMIO GALLEGO : 1940?? Visit: 07/03/2023 16:02?? Current Date: 07/06/2023 15:07 ?? Account: [id number]?? Inpatient Adult Discharge Instructions We would like [...] and their families. Surveys are administered by [employer] ?? If further treatment with your primary care physician or another doctor is recommended, it is important for you to keep the appointment. Call your primary care physician or return to the Emergency Department immediately if your condition worsens, fails to improve, or new symptoms develop. If you need to find a doctor, you can call [facility] Link for a referral at [phone] or toll free at [phone] ([phone]) or log in to [email or web address].. ?? [facility], in keeping with [facility] guidance, no longer requires face masks for [...] a health care hazel of your choosing. [employer] is a website that allows you to securely view your medical information including your hospital discharge summary, office visit summaries, medications and follow-up visits. You can also request appointments, renew medications, and request access to your medical information using a health care hazel of your choosing, or just ask a question. You can enroll at [email or web address] or register during your next office visit. You have been discharged from [facility], Patient Care Unit: SW5??. If you have any questions regarding these instructions, including results of studies pending, afteryou leave, please call us and we will be happy to assist you 13/11. [facility] Your Care Team Attending Physician Drake Mcrae DO?? Consulting Providers Drake Mcrae DO?? Discharging Providers Eyad ARTEAGA, Mehnaz Mondragon Your Diagnosis Diaphragmatic hernia Tests Performed Below is a partial list of the tests performed during your hospitalization. You may have had other tests and procedures not included in this list. Please discuss all test results with your provider. Albumin Level Basic Metabolic Panel CBC COVID-19 (2019 Novel Coronavirus) PCR Glucose Fluid INR Lactic Acid Level LDH Fluid Magnesium Level pH Fluid Phosphorus Level Prealbumin Protein Fluid Urinalysis Complete/Reflex Culture Urine Culture Result Urine Culture, Routine?-- Results Pending -- Chest CT W/ Contrast CT Abd/Pelvis W/ IV Contrast Only US Guide Thoracentesis Imaging XR Chest 2 Views Frontal and Lat XR Chest Single Frontal View You will be contacted within 72 hours with your results. Anaerobic Culture?? Basic Metabolic Panel?? CBC?? Magnesium Level?? Phosphorus Level?? Sterile Body Fluid Culture W/ Gram Smear?? Urine Culture (Urine Culture, Routine)?? Primary Care Provider Winifred Dorsey MD? Advance Directive Health Care Proxy on File Yes - Health Care Proxy Discharge Vitals Temperature: 97.9 DegF Height: 173 cm Pulse Rate: 84 bpm Weight: 58.7 kg Respiratory Rate: 16 br/min Body Mass Index: 19.61 kg/m2 Systolic Blood Pressure:??139 mm Hg??High Body surface area: 1.68 Diastolic Blood Pressure: 81 mm Hg ?? Oxygen Saturation: 97 % ?? Studies Pending All studies ordered during this hospital stay have been completed unless listed below. Please discuss all pending results with your provider listed above in these instructions. ?? Anaerobic Culture?? Basic Metabolic Panel?? CBC?? Magnesium Level?? Phosphorus Level?? Sterile Body Fluid Culture W/ Gram Smear?? Urine Culture (Urine Culture, Routine)?? What to do next Instructions From Your Doctor What is a low residue diet? A low residue diet is meant to put as few demands on the digestive tract as possible. It???s similar to a low fiber diet, but it also excludes some foods that can stimulate bowel contractions. Residue?? refers to material left in your digestive tract after the initial stages of digestion are finished. These materials often contain a lot of fiber because the body can???t fully digest fiber. A low residue diet restricts foods that contain indigestible material. This causes the body to produce smaller amounts of stool less frequently. A low residue diet is typically recommended for people withinflammatory bowel disease (IBD) flares, for bowel surgery and colonoscopy prep, and for people with infectious colitis or acute diverticulitis. ?? Foods to eat on a low residue diet There are many healthy food options on a low residue diet. It???s a good idea to talk with a dietitian before starting this type of diet to determine exactly which foods you should eat and how much of each. Here are some good options they may suggest. Refined carbohydrates A low residue diet includes refined carbohydrates that are easy to digest, such as: white bread, rolls, biscuits, white pasta, white rice, saltine crackers, refined cereal, like puffed rice or corn flakes and skinless, cooked potatoes ?? Fruits and vegetables When it comes to fruits, choose ripened, skinless, seedless, varieties that are raw, canned, or cooked. Good options for a low residue diet include: apricots, bananas, cantaloupe,??honeydew melon, nectarines, papaya,??peaches,??plum,??watermelon ?? When it comes to vegetable intake, plan to include well-cooked or canned options with no skin or seeds, such as: artichoke hearts, asparagus,??beets,??carrots,??eggplant,??green beans,??mushrooms,??potatoes,??pumpkin,??spinach,??yellow squash ?? A low residue diet may also include small amounts of certain raw vegetables, including: shredded lettuce,??skinless, seedless cucumber, milk and other dairy products ?? A small amount of smooth milk products may be included in a low residue diet, such as: milk, yogurt,??custard,??ice cream,??cottage cheese,??ricotta cheese ?? Meat and other protein sources When it comes to meat, choose finely ground, well-cooked, or tender options, like: beef, butts, veal,??pork,??ham ?? You may also eat: poultry, fish,??eggs,??organ meats ?? Sauces and condiments Safe choices for sauces and condiments include: butter, margarine,??vegetable oil,??plain gravy,??honey, syrup, salt,??pepper,??spices,??herbs ?? Snacks, sweets, and desserts If you feel like snacking or having something sweet, try small portions of plain options like: cake, cookies,??custard,??hard candy,??ice cream,??popsicles,??pretzels,??pudding,??sherbet ?? Drinks It may be necessary to drink additional fluids to avoid constipation when reducing the volume of your stools with a low residue diet. Stick with plenty of: water,??clear broths,??clear fruit juice,??strained vegetable juice ? Orders? 07/06/23 13:45:00 EDT?? Scheduled Follow-Up Appointments Sunday 11:30 AM EDT ?? With: Gilmar ARTEAGA, Sandra Young Where: [facility] Thoracic Surgery [address] [place] [address] Drive [address] [place] [address]- Status: Pending You Need to Schedule the Following Appointments Follow Up with??Sandra Schafer When:??07/24/2023 11:30 AM EDT Why: Please have a chest xray in the [facility] Radiology Department 3rd floor at 10:30AM then follow up with Sandra Schafer NP in the Medical Office Building [address] at 11:30AM. Where: [address] [place] [address] [address] [facility] [place] [address]- [facility] (1) Discharge Medications ARTEMIO GALLEGO :1940 Visit Date:07/03/2023 Medications: Please continue your medications until treatment is completed or stopped by your provider. Medications not listed below should be discontinued. Discuss any questions related to medications with your provider. What How Much When Instructions Next Dose New Acetaminophen (acetaminophen 325 mg oral tablet) 650 Milligram Oral Every 4 hours as needed for Pain , Mild as needed New Bisacodyl (bisacodyl 10 mg rectal suppository) 1 suppository(ies) Per rectum Daily as needed for Constipation as needed New Docusate (Docusate Sodium Capsule) 100 Milligram Oral Twice a day 07/05 9pm New Polyethylene Glycol 3350 (Polyethylene Glycol Powder) 17 gram Oral Daily 07/06 9am New Senna (Senna 8.6 mg oral tablet) 1 tab(s) Oral Daily 07/06 9am New Trazodone (traZODone 50 mg oral tablet) 25 Milligram Oral Daily at Bedtime 07/05 9pm Unchanged Amlodipine (amLODIPine 10 mg oral tablet) 1 tab(s) Oral Daily 07/06 9am Unchanged ascorbic acid/ chondroitin/ glucosa/ samara (Glucosamine Chondroitin) Oral Daily not given in hospital, resume home schedule Unchanged Aspirin (aspirin 81 mg oral delayed release tablet) 1 tab(s) Oral Daily 07/06 9am Unchanged Atorvastatin (atorvastatin 20 mg oral tablet) 1 tab(s) Oral Daily 07/04 9pm Unchanged Azelastine Nasal (azelastine 137 mcg/ inh (0.1%) nasal spray) 2 spray(s) Nares, Both Daily as needed for Other Allergies not given in hospital, resume home schedule Unchanged Cholecalciferol (Vitamin D3 1000 intl units oral capsule) 1 capsule Oral Daily not given in hospital, resume home schedule Unchanged Clopidogrel (clopidogrel 75 mg oral tablet) 75 Milligram Oral Daily not given in hospital, resume home schedule Unchanged Finasteride (finasteride 5 mg oral tablet) 1 tab(s) Oral Daily 07/06 9am Unchanged Lutein Oral Daily not given in hospital, resume home schedule Unchanged Melatonin as needed Unchanged Metoprolol (Metoprolol Succinate ER 25 mg oral tablet, extended release) 1 tab(s) Oral Daily 07/06 9am Unchanged Multivitamin With Minerals (Theratrum Complete with Lutein and Lycopene) Oral Daily not given in hospital, resume home schedule Unchanged Tamsulosin (tamsulosin 0.4 mg oral capsule) 1 capsule Oral Daily 07/06 9pm Unchanged Ubiquinone (Co Q-10) 100 Milligram Oral Daily not given inhospital, resume home schedule Prescription Given During Visit No new medications prescribed at time of discharge.?? Laboratory Results Below is a partial list of the most recent Laboratory test results done prior to this discharge. You may have had other tests and procedures not included in this list. Please discuss all test resultswith your provider. Est Creatinine Clearance - 49.82 mL/min (07/04/2023) Albumin Level (07/03/2023) ???Albumin - 4.2 Gm/dL Basic Metabolic Panel (07/06/2023) ???Sodium - 130 mmol/L???Potassium - 3.5 mmol/L???Chloride - 93 mmol/L???Bicarbonate Level - 23 mmol/L???Anion Gap - 14???Glucose Level - 90 mg/dL???BUN - 11 mg/dL???Creatinine-Blood - 0.9 mg/dL???Estimated GFR Creatinine - 84 ML/MIN/1.73 M2???Calcium - 8.5 mg/dL CBC (07/06/2023) ???WBC - 7.3 k/mm3???RBC - 3.33 m/mm3???Hgb - 11.1 Gm/dL???Hct - 31.2 %???MCV - 93.7 femtoliters???MCH - 33.3 pg???MCHC - 35.6 g/dL???Platelet Count - 319 k/mm3???RDW-SD - 41.8 femtoliters???MPV - 9.4 femtoliters???Nucleated RBC (Automated) - 0.0 #/100 WBC'S???Abs. NRBC - 0.0 k/mm3 COVID-19 (2019 Novel Coronavirus) PCR (07/03/2023) ???COVID-19 PCR Specimen Source - NASAL???COVID-19 PCR Result - NEGATIVE Glucose Fluid (07/04/2023) ???Glucose, Fluid - 83 mg/dL INR (07/04/2023) ???INR - 1.0???Protime (PT) - 10.7 seconds Lactic Acid Level (07/04/2023) ???Lactate - 0.9 mmol/L LDH Fluid (07/04/2023) ???LDH, Fluid - 205 units/L Magnesium Level (07/06/2023) ???Magnesium - 1.8 mg/dL pH Fluid (07/04/2023) ???Fluid pH - 7.49 Phosphorus Level (07/06/2023) ???Phosphorus - 4.0 mg/dL Prealbumin (07/03/2023) ???Prealbumin - 19.4 mg/dL Protein Fluid (07/04/2023) ???T. Protein, Fluid - 3.4 Gm/dL Urinalysis Complete/Reflex Culture (07/03/2023) ???Appear/Color, Urine - YELLOW???Clarity - TURBID???Specific [place]avia, Urine - 1.019???pH, Urine - 6.5???Albumin, Urine - 1+???Glucose, Urine - NEGATIVE???Ketones, Urine - NEGATIVE???Bilirubin, Urine- NEGATIVE???Hemoglobin, Urine - 1+???Nitrite, Urine - NEGATIVE???Leukocyte, Urine - 3+???Urobilinogen - NORMAL? ?WBC's, Urine - >182 /HPF? ?RBC's, Urine - 12 /HPF? ?Bacteria - HEAVY? ?WBC Clumps - SLIGHT???Culture Indication - CULTURE INDICATED Urine Culture Result (07/03/2023) ???Urine Culture Isolate 1 - Escherichia coli???Urine Cult Antimicrobial Susceptibility - Comment Allergies (NKA means No Known Allergies) No Known Medication Allergies Problems Active Problems??(5) Coronary artery disease?? 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 Hypertension?? Urinary retention?? Education Materials Below is the list of Educational Leaflet Providered with your Discharge Instructions. [employer] Patient Education - Discharge Instructions for Thoracentesis?? Valuables and Belongings I fully understand and agree that [facility] accepts no responsibility for all my personal [...] to send valuables and belongings home. ?? Date for Pt to Sign Valuables/Belongings: 07/03/23 16:59:00 ?? Other Discharge Information ? Case Management Discharge Plan?? Discharge Plan?? Discharge Agency Information?? Discharge Level of Care at Discharge: long term facility Name of Agency #1: [facility] Discharge Transportation Arranged: Family to transport Service Categories #1: Occupational Therapy, Physical Therapy, Speech Therapy Discharge Nursing Homes/Rehab Facilities: [facility] Comments #1: Patient's family to transport to [facility] today by 5pm ?? Name of Person Notified of Transfer: Artemio ?? Pulmonary Rehab Status?? Pulmonary Rehab Discharge Status?? Respiratory Rate: 16 br/min ? Common Emergency Awareness Tips IS [...] are strongly encouraged to quit. Please call [facility] [employer] Link at [phone] or [phone] ([phone]) or log in to [email or web address] for referrals to smoking cessation programs. ?? 638 Suicide & Crisis Lifeline is available 13/11 if you or someone you know needs to find a reason to keep living. By calling 328 you'll be connected to a skilled, trained counselor at a crisis center in your area. INPATIENT DISCHARGE INSTRUCTIONS SIGNATURE ARTEMIO NAIR Location:[facility] Registration Date and Time:07/03/2023 16:02 EDT Primary Care Physician: Winifred Dorsey MD, Attending Physician: Drake Mcrae DO, ARTEMIO WILSON, have received the above patient education materials/instructions and have verbalized understanding. If ambulance or transport services are being used I further acknowledge being given a choice of service. ?? If you need to contact me, please call me at this number: . Patient/Company Accountant Name: Patient/Company Accountant Signature: Relationship to Patient: Witness Name/Signature: Date: * Abby Betts RN: PERFORM Event Display: Patient Education/Instruction Authored Date: [id number] Inpatient Adult Discharge Instructions. [address] [address] Name: ARTEMIO GALLEGO : 1940?? Visit: 07/03/2023 16:02?? Current Date: 07/06/2023 15:06 ?? Account: [id number]?? Inpatient Adult Discharge Instructions We would like [...] and their families. Surveys are administered by [employer] ?? If further treatment with your primary care physician or another doctor is recommended, it is important for you to keep the appointment. Call your primary care physician or return to the Emergency Department immediately if your condition worsens, fails to improve, or new symptoms develop. If you need to find a doctor, you can call [facility] Link for a referral at [phone] or toll free at [phone] ([phone]) or log in to [email or web address] Left.. ?? [facility], in keeping with [facility] guidance, no longer requires face masks for [...] a health care hazel of your choosing. [employer] is a website that allows you to securely view your medical information including your hospital discharge summary, office visit summaries, medications and follow-up visits. You can also request appointments, renew medications, and request access to your medical information using a health care hazel of your choosing, or just ask a question. You can enroll at [email or web address] or register during your next office visit. You have been discharged from [facility], Patient Care Unit: SW5??. If you have any questions regarding these instructions, including results of studies pending, afteryou leave, please call us and we will be happy to assist you 13/11. [facility] Your Care Team Attending Physician Drake Mcrae DO?? Consulting Providers Drake Mcrae DO?? Discharging Providers Eyad ARTEAGA, Mehnaz Mondragon Your Diagnosis Diaphragmatic hernia Tests Performed Below is a partial list of the tests performed during your hospitalization. You may have had other tests and procedures not included in this list. Please discuss all test results with your provider. Albumin Level Basic Metabolic Panel CBC COVID-19 (2019 Novel Coronavirus) PCR Glucose Fluid INR Lactic Acid Level LDH Fluid Magnesium Level pH Fluid Phosphorus Level Prealbumin Protein Fluid Urinalysis Complete/Reflex Culture Urine Culture Result Urine Culture, Routine?-- Results Pending -- Chest CT W/ Contrast CT Abd/Pelvis W/ IV Contrast Only US Guide Thoracentesis Imaging XR Chest 2 Views Frontal and Lat XR Chest Single Frontal View You will be contacted within 72 hours with your results. Anaerobic Culture?? Basic Metabolic Panel?? CBC?? Magnesium Level?? Phosphorus Level?? Sterile Body Fluid Culture W/ Gram Smear?? Urine Culture (Urine Culture, Routine)?? Primary Care Provider Winifred Dorsey MD? Advance Directive Health Care Proxy on File Yes - Health Care Proxy Discharge Vitals Temperature: 97.9 DegF Height: 173 cm Pulse Rate: 84 bpm Weight: 58.7 kg Respiratory Rate: 16 br/min Body Mass Index: 19.61 kg/m2 Systolic Blood Pressure:??139 mm Hg??High Body surface area: 1.68 Diastolic Blood Pressure: 81 mm Hg ?? Oxygen Saturation: 97 % ?? Studies Pending All studies ordered during this hospital stay have been completed unless listed below. Please discuss all pending results with your provider listed above in these instructions. ?? Anaerobic Culture?? Basic Metabolic Panel?? CBC?? Magnesium Level?? Phosphorus Level?? Sterile Body Fluid Culture W/ Gram Smear?? Urine Culture (Urine Culture, Routine)?? What to do next Instructions From Your Doctor What is a low residue diet? A low residue diet is meant to put as few demands on the digestive tract as possible. It???s similar to a low fiber diet, but it also excludes some foods that can stimulate bowel contractions. Residue?? refers to material left in your digestive tract after the initial stages of digestion are finished. These materials often contain a lot of fiber because the body can???t fully digest fiber. A low residue diet restricts foods that contain indigestible material. This causes the body to produce smaller amounts of stool less frequently. A low residue diet is typically recommended for people withinflammatory bowel disease (IBD) flares, for bowel surgery and colonoscopy prep, and for people with infectious colitis or acute diverticulitis. ?? Foods to eat on a low residue diet There are many healthy food options on a low residue diet. It???s a good idea to talk with a dietitian before starting this type of diet to determine exactly which foods you should eat and how much of each. Here are some good options they may suggest. Refined carbohydrates A low residue diet includes refined carbohydrates that are easy to digest, such as: white bread, rolls, biscuits, white pasta, white rice, saltine crackers, refined cereal, like puffed rice or corn flakes and skinless, cooked potatoes ?? Fruits and vegetables When it comes to fruits, choose ripened, skinless, seedless, varieties that are raw, canned, or cooked. Good options for a low residue diet include: apricots, bananas, cantaloupe,??honeydew melon, nectarines, papaya,??peaches,??plum,??watermelon ?? When it comes to vegetable intake, plan to include well-cooked or canned options with no skin or seeds, such as: artichoke hearts, asparagus,??beets,??carrots,??eggplant,??green beans,??mushrooms,??potatoes,??pumpkin,??spinach,??yellow squash ?? A low residue diet may also include small amounts of certain raw vegetables, including: shredded lettuce,??skinless, seedless cucumber, milk and other dairy products ?? A small amount of smooth milk products may be included in a low residue diet, such as: milk, yogurt,??custard,??ice cream,??cottage cheese,??ricotta cheese ?? Meat and other protein sources When it comes to meat, choose finely ground, well-cooked, or tender options, like: beef, butts, veal,??pork,??ham ?? You may also eat: poultry, fish,??eggs,??organ meats ?? Sauces and condiments Safe choices for sauces and condiments include: butter, margarine,??vegetable oil,??plain gravy,??honey, syrup, salt,??pepper,??spices,??herbs ?? Snacks, sweets, and desserts If you feel like snacking or having something sweet, try small portions of plain options like: cake, cookies,??custard,??hard candy,??ice cream,??popsicles,??pretzels,??pudding,??sherbet ?? Drinks It may be necessary to drink additional fluids to avoid constipation when reducing the volume of your stools with a low residue diet. Stick with plenty of: water,??clear broths,??clear fruit juice,??strained vegetable juice ? Orders? 07/06/23 13:45:00 EDT?? Scheduled Follow-Up Appointments Sunday 11:30 AM EDT ?? With: Gilmar ARTEAGA, aSndra Young Where: [facility] [address] [place] [address] Drive [address] [place] [address]- Status: Pending You Need to Schedule the Following Appointments Follow Up with??Sandra Schafer When:??07/24/2023 11:30 AM EDT Why: Please have a chest xray in the [facility] Department 3rd floor at 10:30AM then follow up with Sandra Schafer NP in the Medical Office Building [address] at 11:30AM. Where: [address] [place] [address] [address] [facility] [place] [address]- Business (1) Discharge Medications ARTEMIO GALLEGO :1940 Visit Date:07/03/2023 Medications: Please continue your medications until treatment is completed or stopped by your provider. Medications not listed below should be discontinued. Discuss any questions related to medications with your provider. What How Much When Instructions Next Dose New Acetaminophen (acetaminophen 325 mg oral tablet) 650 Milligram Oral Every 4 hours as needed for Pain , Mild New Bisacodyl (bisacodyl 10 mg rectal suppository) 1 suppository(ies) Per rectum Daily as needed for Constipation New Docusate (Docusate Sodium Capsule) 100 Milligram Oral Twice a day New Polyethylene Glycol 3350 (Polyethylene Glycol Powder) 17 gram Oral Daily New Senna (Senna 8.6 mg oral tablet) 1 tab(s) Oral Daily New Trazodone (traZODone 50 mg oral tablet) 25 Milligram Oral Daily at Bedtime Unchanged Amlodipine (amLODIPine 10 mg oral tablet) 1 tab(s) Oral Daily Unchanged ascorbic acid/ chondroitin/ glucosa/ samara (Glucosamine Chondroitin) Oral Daily Unchanged Aspirin (aspirin 81 mg oral delayed release tablet) 1 tab(s) Oral Daily Unchanged Atorvastatin (atorvastatin 20 mg oral tablet) 1 tab(s) Oral Daily Unchanged Azelastine Nasal (azelastine 137 mcg/ inh (0.1%) nasal spray) 2 spray(s) Nares, Both Daily as needed for Other Allergies Unchanged Cholecalciferol (Vitamin D3 1000 intl units oral capsule) 1 capsule Oral Daily Unchanged Clopidogrel (clopidogrel 75 mg oral tablet) 75 Milligram Oral Daily Unchanged Finasteride (finasteride 5 mg oral tablet) 1 tab(s) Oral Daily Unchanged Lutein Oral Daily Unchanged Melatonin Unchanged Metoprolol (Metoprolol Succinate ER 25 mg oral tablet, extended release) 1 tab(s) Oral Daily Unchanged Multivitamin With Minerals (Theratrum Complete with Lutein and Lycopene) Oral Daily Unchanged Tamsulosin (tamsulosin 0.4 mg oral capsule) 1 capsule Oral Daily Unchanged Ubiquinone (Co Q-10) 100 Milligram Oral Daily Prescription Given During Visit No new medications prescribed at time of discharge.?? Laboratory Results Below is a partial list of the most recent Laboratory test results done prior to this discharge. You may have had other tests and procedures not included in this list. Please discuss all test resultswith your provider. Est Creatinine Clearance - 49.82 mL/min (07/04/2023) Albumin Level (07/03/2023) ???Albumin - 4.2 Gm/dL Basic Metabolic Panel (07/06/2023) ???Sodium - 130 mmol/L???Potassium - 3.5 mmol/L???Chloride - 93 mmol/L???Bicarbonate Level - 23 mmol/L???Anion Gap - 14???Glucose Level - 90 mg/dL???BUN - 11 mg/dL???Creatinine-Blood - 0.9 mg/dL???Estimated GFR Creatinine - 84 ML/MIN/1.73 M2???Calcium - 8.5 mg/dL CBC (07/06/2023) ???WBC - 7.3 k/mm3???RBC - 3.33 m/mm3???Hgb - 11.1 Gm/dL???Hct - 31.2 %???MCV - 93.7 femtoliters???MCH - 33.3 pg???MCHC - 35.6 g/dL???Platelet Count - 319 k/mm3???RDW-SD - 41.8 femtoliters???MPV - 9.4 femtoliters???Nucleated RBC (Automated) - 0.0 #/100 WBC'S???Abs. NRBC - 0.0 k/mm3 COVID-19 (2019 Novel Coronavirus) PCR (07/03/2023) ???COVID-19 PCR Specimen Source - NASAL???COVID-19 PCR Result - NEGATIVE Glucose Fluid (07/04/2023) ???Glucose, Fluid - 83 mg/dL INR (07/04/2023) ???INR - 1.0???Protime (PT) - 10.7 seconds Lactic Acid Level (07/04/2023) ???Lactate - 0.9 mmol/L LDH Fluid (07/04/2023) ???LDH, Fluid - 205 units/L Magnesium Level (07/06/2023) ???Magnesium - 1.8 mg/dL pH Fluid (07/04/2023) ???Fluid pH - 7.49 Phosphorus Level (07/06/2023) ???Phosphorus - 4.0 mg/dL Prealbumin (07/03/2023) ???Prealbumin - 19.4 mg/dL Protein Fluid (07/04/2023) ???T. Protein, Fluid - 3.4 Gm/dL Urinalysis Complete/Reflex Culture (07/03/2023) ???Appear/Color, Urine - YELLOW???Clarity - TURBID???Specific Ravia, Urine - 1.019???pH, Urine - 6.5???Albumin, Urine - 1+???Glucose, Urine - NEGATIVE???Ketones, Urine - NEGATIVE???Bilirubin, Urine- NEGATIVE???Hemoglobin, Urine - 1+???Nitrite, Urine - NEGATIVE???Leukocyte, Urine - 3+???Urobilinogen - NORMAL? ?WBC's, Urine - >182 /HPF? ?RBC's, Urine - ? ?Bacteria - HEAVY? ?WBC Clumps - SLIGHT???Culture Indication - CULTURE INDICATED Urine Culture Result (07/03/2023) ???Urine Culture Isolate 1 - Escherichia coli???Urine Cult Antimicrobial Susceptibility - Comment Allergies (NKA means No Known Allergies) No Known Medication Allergies Problems Active Problems??(5) Coronary artery disease?? 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 Hypertension?? Urinary retention?? Education Materials Below is the list of Educational Leaflet Providered with your Discharge Instructions. Web[employer] Ignite Patient Education - Discharge Instructions for Thoracentesis?? Valuables and Belongings I fully understand and agree that [facility] accepts no responsibility for all my personal [...] to send valuables and belongings home. ?? Date for Pt to Sign Valuables/Belongings: 07/03/23 16:59:00 ?? Other Discharge Information ? Case Management Discharge Plan?? Discharge Plan?? Discharge Agency Information?? Discharge Level of Care at Discharge: long term facility Name of Agency #1: [facility] Discharge Transportation Arranged: Family to transport Service Categories #1: Occupational Therapy, Physical Therapy, Speech Therapy Discharge Nursing Homes/Rehab Facilities: [facility] Comments #1: Patient's family to transport to [facility] today by 5pm ?? Name of Person Notified of Transfer: Artemio ?? Pulmonary Rehab Status?? Pulmonary Rehab Discharge Status?? Respiratory Rate: 16 br/min ? Common Emergency Awareness Tips IS [...] are strongly encouraged to quit. Please call [facility] at [phone] or [phone] Buddy ([phone]) or log in to [email or web address] for referrals to smoking cessation programs. ?? 001 Suicide & Crisis Lifeline is available 13/11 if you or someone you know needs to find a reason to keep living. By calling 932 you'll be connected to a skilled, trained counselor at a crisis center in your area. INPATIENT DISCHARGE INSTRUCTIONS SIGNATURE RADHA ARTEMIO GALLEGO Location:[facility] Registration Date and Time:07/03/2023 16:02 EDT Primary Care Physician: Winifred Dorsey MD, Attending Physician: Drake Mcrae DO, I RODDY ARTEMIO, have received the above patient education materials/instructions and have verbalized understanding. If ambulance or transport services are being used I further acknowledge being given a choice of service. ?? If you need to contact me, please call me at this number: . Patient/Company Accountant Name: Patient/Company Accountant Signature: Relationship to Patient: Witness Name/Signature: Date: * Mehnaz Castano NP: PERFORM, SIGN, VERIFY Event Display: Patient Education Handout Authored Date: [id number] * Abby Betts RN: PERFORM Event Display: Patient Education Leaflets Authored Date: [id number] Discharge Instructions for Thoracentesis ?? [id number] Discharge Instructions for Thoracentesis Thoracentesis is a procedure that removes extra fluid from the pleural space. This space is betweenthe outside surface of the lungs (pleura) and the chest wall. The extra fluid is called pleural effusion.??Thoracentesis may be done to take a sample of the fluid. It can then be tested to help find the cause. Or the procedure may??be done to drain the extra fluid??if you are having??trouble breathing. Home care ??? You may have some pain after the procedure. Your provider may prescribe pain medicine, if needed. Take these exactly as directed. ??? If you stopped taking other medicines before the procedure, ask your provider when you can start them again. ??? Take it easy for 48 hours after the procedure. Don't do anything active until your provider says it???s OK. ??? Don't do??strenuous activities, such as lifting, until your provider says it???s OK. ??? You will have a small bandage over the puncture site. You may remove the bandage in??24 hours, or when your provider says it's OK. ??? Check the puncture site for the signs of infection listed below. ?? Follow-up Make a follow-up appointment with your provider as directed. During your follow- up visit, your provider will check your healing. Be sure to let your provider know how you are feeling. ?? When to call your healthcare provider Call your provider right away if you have any of these: ??? Fever of 100.4??F (38??C) or higher, oras directed ??? Pain that doesn't get better after taking pain medicine ??? Signs of infection at the puncture site. These include increased pain, redness,??warmth, swelling, or fluid leaking that isgreen or yellow or smells bad. ??? Fluid draining from the puncture site ??? Bleeding from the puncture site ?? When to call 911 Call 911 or get care at the nearest emergency department if any of these occur: ??? Chest pain thatis unusual or suddenly gets worse ??? Shortness of breath ??? Coughing up blood ?? Last Reviewed Date: 2022 ?? [id number] [employer] All rights reserved. This information is not [...] Care Nurse Name: Fabiola Fontanez NP Position: S Associate Professional Member Role: Lifetime Consulting Provider Address: Address: [address] [place] [address] [facility] [address] Name: Jason Link MD Position: [facility] Renal MD Member Role: Lifetime Consulting Physician Address: Address: [address] [place] [address] [facility] [address] Name: Mariela Golden Position: S RN Member Role: Primary Care Nurse Name: Juan Carlos Gilbert RN Position: S RN Member Role: Primary Care Nurse Name: Winifred Dorsey MD Position: Reference Physician Member Role: PCP Address: Address: [address] [place] [address] [place] [address] [place] Care Team Related Persons Name: YANNICK GALLEGO Address: home [address] [place] [address]
--- OUTSIDE RECORDS SUMMARY | 2023-12-12 06:10 | XMS_ITS | Continuity of Care Document ---
Author Organization [facility] Address [address] [place] [address] [address], [address] [place] [address]- Care Team Providers Care Sheep Farmer Name Role Phone Winifred Dorsey MD Primary Care Physician Encounter [facility] Date(s): 07/06/23 - 08/23/23 [facility] [address] [place] [address] Drive [address] [place] [address]- Attending Physician: Sandra Schafer NP Allergies, Adverse [...] mL, 0 Refills, Maintenance, 11/28/22 15:04:00 EDT, [place], Partial fill upon patient request if the [...] Maintenance, 04/13/23 12:41:00 EST,Route to Pharmacy Electronically, [id number], Partial fill upon patient [...] Care Nurse Name: Fabiola Fontanez NP Position: [facility] Associate Professional Member Role: Lifetime Consulting Provider Address: Address: [address] [place] [address] [facility] [address] Name: Jason Link MD Position: [facility] Renal MD Member Role: Lifetime Consulting Physician Address: Address: [address] [place] [address] [facility] [address] Name: Mariela Golden Position: S RN Member Role: Primary Care Nurse Name: Juan Carlos Gilbert RN Position: S RN Member Role: Primary Care Nurse Name: Winifred Dorsey MD Position: Reference Physician Member Role: PCP Address: Address: [address] [place] [address] [place] [address] [place] Care Team Related Persons Name: YANNICK PEREYRA Address: home [address] [place] [address]
--- OUTSIDE RECORDS SUMMARY | 2023-12-12 06:11 | XMS_ITS | Patient Health Record ---
Author Organization [facility] Address [address] [place] [address] Care Team Providers Care Cook [employer] Name Role Phone Sunita, Winifred Primary Care Provider RESULTS Component Value Reference Range Notes Complete Blood Count W/ Diff (Not yet reviewed by provider) Interpretation: Performing Lab: Notes/Report: White Blood Count 4.2 4.0-11.0 K/mm3 Red Blood Count 4.03 4.20-5.80 M/uL Hemoglobin 13.1 12.5-17.0 gm/dL Hematocrit 38.7 37.0-50.0 % Mean Corpuscular Volume 96.0 80.0-100.0 FL MCHC 33.9 32-37 % Red Cell Distribution Width 12.7 11.5-16.0 % Platelet Count 243 140-400 K/uL Mean Platelet Volume 10.2 8.6-12.5 FL %Nucleated RBC Auto 0.0 0.0-0.7 % %Neutrophils Auto 56.6 %Lymphocytes Auto 17.7 %Monocytes Auto 21.0 %Eosinophils Auto 3.3 %Basophils Auto 0.9 %Immature Granulocytes Auto 0.5 #Neutrophils Auto 2.39 1.50-7.50 K/uL #Lymphocytes Auto 0.75 1.00-4.50 K/uL #Monocytes Auto 0.89 0.00-0.80 K/uL #Eosinophils Auto 0.14 0.00-0.40 K/uL #Basophils Auto 0.04 0.00-0.20 K/uL #Immature Granulocytes Auto 0.02 0.00-0.10 K/u L Lipid Panel (Not yet reviewe d by provider) Interpretation: Performing Lab: Notes/Report: Patient fasting?Y Triglycerides 71 Normal <=150 Normal 150-199 Borderline High 200-499 High >=500 Very High Cholesterol 111 Desirable <200 Desirable 200-239 Borderline High >=240 High LDL Cholesterol Calculated 42 Optimal <100 Optimal 100-129 Near optimal 130-159 Borderline High 160-189 High >=190 Very High HDL Cholesterol 55 40- mg/dL Comprehensive Metabolic Pane l (Not yet reviewed by provider) Interpretation: Performing Lab: Notes/Report: Patient fasting?Y Sodium 132 133-145 mEq/L Potassium 4.6 3.5-5.1 mEq/L Chloride 97 98-112 mEq/L Please note new reference range. Carbon Dioxide 26 22-31 mEq/L Anion Gap 9 5-15 mEq/L Blood Urea Nitrogen (BUN) 16 8-26 mg/dL Creatinine 1.13 0.70-1.18 mg/dL Est.Glomerular Filtration Rate > 60 Units: mL/min/1.73 m2 Estimated GFR (eGFR) should not be used for [...] G4 (severely decreased), eGFR<15 G5 (kidney failure). Glucose 96 70-100 mg/dL Fasting Reference Interval: 70-100mg/dL Non-fasting Reference Interval: 70-140mg/dL Calcium 9.2 8.4-10.4 mg/dL Bilirubin Total 0.4 0.2-1.2 mg/dL Aspartate Amino Transferase 24 5-34 IU/L Alanine Aminotransferase 14 0-55 IU/L Total Protein 6.7 5.8-8.1 g/dL Albumin 3.9 2.8-5.4 g/dL Alkaline Phosphatase 98 40-150 IU/L Lipid Panel (Not yet reviewe d by provider) Interpretation: Performing Lab: Notes/Report: Patient fasting?Y Triglycerides 81 Normal <=150 Normal 150-199 Borderline High 200-499 High >=500 Very High Cholesterol 123 Desirable <200 Desirable 200-239 Borderline High >=240 High LDL Cholesterol Calculated 48 Optimal <100 Optimal 100-129 Near optimal 130-159 Borderline High 160-189 High >=190 Very High HDL Cholesterol 59 40- mg/dL Comprehensive Metabolic Pane l (Not yet reviewed by provider) Interpretation: Performing Lab: Notes/Report: Patient fasting?Y Sodium 134 133-145 mEq/L Potassium 4.3 3.5-5.1 mEq/L Chloride 99 98-107 mEq/L Carbon Dioxide 25 22-31 mEq/L Anion Gap 10 5-15 mEq/L Blood Urea Nitrogen (BUN) 18 8-26 mg/dL Creatinine 1.08 0.70-1.18 mg/dL Est.Glomerular Filtration Rate > 60 Units: mL/min/1.73 m2 Estimated GFR (eGFR) should not be used for [...] G4 (severely decreased), eGFR<15 G5 (kidney failure). Glucose 89 70-100 mg/dL Fasting Reference Interval: 70-100mg/dL Non-fasting Reference Interval: 70-140mg/dL Calcium 9.2 8.4-10.4 mg/dL Bilirubin Total 0.5 0.2-1.2 mg/dL Aspartate Amino Transferase 27 5-34 IU/L Alanine Aminotransferase 17 0-55 IU/L Total Protein 6.7 5.8-8.1 g/dL Albumin 3.9 2.8-5.4 g/dL Alkaline Phosphatase 74 40-150 IU/L Complete Blood Count W/ Diff (Not yet reviewed by provider) Interpretation: Performing Lab: Notes/Report: White Blood Count 4.6 4.0-11.0 K/mm3 Red Blood Count 4.16 4.20-5.80 M/uL Hemoglobin 13.8 12.5-17.0 gm/dL Hematocrit 40.3 37.0-50.0 % Mean Corpuscular Volume 96.9 80.0-100.0 FL MCHC 34.2 32-37 % Red Cell Distribution Width 12.5 11.5-16.0 % Platelet Count 219 140-400 K/uL Mean Platelet Volume 9.8 8.6-12.5 FL %Nucleated RBC Auto 0.0 0.0-0.7 % %Neutrophils Auto 57.0 %Lymphocytes Auto 24.0 %Monocytes Auto 13.6 %Eosinophils Auto 3.9 %Basophils Auto 0.9 %Immature Granulocytes Auto 0.6 #Neutrophils Auto 2.63 1.50-7.50 K/uL #Lymphocytes Auto 1.11 1.00-4.50 K/uL #Monocytes Auto 0.63 0.00-0.80 K/uL #Eosinophils Auto 0.18 0.00-0.40 K/uL #Basophils Auto 0.04 0.00-0.20 K/uL #Immature Granulocytes Auto 0.03 0.00-0.10 K/u L Lipid Panel (Not yet reviewe d by provider) Interpretation: Performing Lab: Notes/Report: Patient fasting?Y Triglycerides 83 Normal <=150 Normal 150-199 Borderline High 200-499 High >=500 Very High Cholesterol 138 Desirable <200 Desirable 200-239 Borderline High >=240 High LDL Cholesterol Calculated 61 Optimal <100 Optimal 100-129 Near optimal 130-159 Borderline High 160-189 High >=190 Very High HDL Cholesterol 60 40- mg/dL Comprehensive Metabolic Pane l (Not yet reviewed by provider) Interpretation: Performing Lab: Notes/Report: Patient fasting?Y Sodium 138 133-145 mEq/L Potassium 4.4 3.5-5.1 mEq/L Please note ne w reference range. Chloride 100 98-107 mEq/L Carbon Dioxide 28 22-31 mEq/L Anion Gap 10 5-15 mEq/L Blood Urea Nitrogen (BUN) 19 8-26 mg/dL Pl ease note new reference range. Creatinine 1.19 0.00-1.40 mg/dL Est.Glomerular Filtration Rate 60 Units: mL/min/1.73 m2 Estimated GFR (eGFR) should not be used for [...] G4 (severely decreased), eGFR<15 G5 (kidney failure). Glucose 94 70-100 mg/dL Fasting Reference Interval: 70-100mg/dL Non-fasting Reference Interval: 70-140mg/dL Calcium 9.7 8.4-10.4 mg/dL Please note n ew reference range. Bilirubin Total 0.7 0.2-1.2 mg/dL Aspartate Amino Transferase 28 5-34 IU/L Alanine Aminotransferase 20 0-55 IU/L Total Protein 7.1 5.8-8.1 g/dL Albumin 4.4 2.8-5.4 g/dL Alkaline Phosphatase 71 40-150 IU/L Please note new reference range. REASON FOR REFERRAL No Information MEDICATIONS Medication SIG (Take, Route, Frequency, Duration) Notes Start Date End Date Status Lycopene 10 mg 1 tab(s) orally once daily for 30 day(s) Active Ativan 0.5 mg 1/2 tab orally once prn for 90 days 05/04/2023 Active finasteride 5MG 1 tab orally once a day for 90 days Active aspirin 81 mg 1 tab(s) orally once a day Active amLODIPine 10 mg 1 tab(s) orally once a day for 90 Active clopidogrel 75 mg 1 tab(s) orally once a day Active tamsulosin 0.4 mg 1 cap(s) orally once a day for 90 days Active traZODone 50 mg as directed orally a t night for 90 days Active Glucosamine Chondroitin MSM Complex 1500mg 1 tab(s) orally Once daily Active beta-carotene 39032 units 1 (10,000)cap( s) orally once a day Active betamethasone-clotrimazole topical 0.05%-1% 1 hazel applied topically 2 times a day for 7 Active fluticasone nasal 50 mcg/inh 1 spray(s) in each nostril Twice a day for 90 day(s) 10/11/2022 Active atorvastatin 20 mg 1 tab(s) orally once a day for 90 days Active Vitamin D3 1000 intl units 1 cap(s) oral ly once a day for 30 day(s) Active Metoprolol Succinate ER 25 mg Take 1 tablet by mouth once daily for 90 days Active CoQ10 100 mg 1 tablet orally 1-2x /day as directed for 30 day(s) Active Keppra 500 mg 1/2 tab in am and 1 tab in pm orally 2 times a day for 90 days 09/10/2023 Active IMMUNIZATIONS Vaccine Route Administration Date Status Comme nts Afluria Tri IM Intramuscular 02/03/2016 Administered COVID 19 MODERNA Unknown 02/20/2021 Administered FLUCELVAX QUADRIVALENT IM Intramuscular 02/04/2021 Administered Flulaval IM Intramuscular 02/13/2012 Administered Flulaval IM Intramuscular 01/17/2013 Administered Fluvirin IM Intramuscular 01/30/2014 Administered Given by Pharmacy Fluzone IM Intramuscular 01/12/2015 Administered Given at pharmacy. PCV13 (Pneumococcal Conjugate) IM Intramuscular 01/07/2016 Administered PPSV23 (pneumococcal polysaccharide) IM Intramuscular 03/22/2020 Administered SHINGRIX IM Intramuscular 11/21/2018 Administered Tdap IM Intramuscular 09/21/2015 Administered SOCIAL HISTORY Sex Assigned At : Social History Observation Description Sex Assigned At Unknown PROBLEMS Problem Type ICD Code Onset Dates Problem Status W/U Status Risk SNOMED Code Notes Problem Hypertension (unspecified) (401.9) Active confirmed Essential hypertension (09518698) Problem Abnormal kidney function study (794.4) Active confirmed Renal function tests abnormal (197872814) Problem 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) Active confirmed Squamous c ell carcinoma of nose (387240063) Problem Hypothyroidism, unspecified (E03.9) Active confirmed Hypothyroidism (98182017) Problem Hyperlipidemia, unspecified (E78.5) Active confirmed Hyperlipidemia (65325284) Problem Anxiety disorder, unspecified (F41.9) Active confirmed Anxiety disorde r (643752807) Problem Insomnia, unspecified (G47.00) Active confirmed Insomnia (447969200) Problem Essential (primary) hypertension (I10) Active confirmed Essential hypertension (22445195) Problem 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) Active confirmed Atherosclerotic heart disease of circle coronary artery without angina pectoris (701486961720798) Problem Coronary atherosclerosis due to calcified coronary lesion (I25.84) Active confirmed Atherosclerosis of coronary artery (015422392) Problem Nonrheumatic mitral (valve) prolapse (I34.1) Active confirmed Mitral valv e disorder (86972851) Problem Unspecified premature depolarization (I49.40) Active confirmed Premature beats (70471562) Problem Diaphragmatic hernia without obstruction or gangrene (K44.9) Active confirmed Diaphragmat ic hernia (74779725) Problem Constipation, unspecified (K59.00) Active confirmed Constipation (56974491) Problem Enlarged prostate without lower urinary tract symptoms (N40.0) Active confirmed Enlarged pr ostate (944028745) Problem Dyspnea, unspecified (R06.00) Active confirmed Dyspnea (065119308) Problem Retention of urine, unspecified (R33.9) Active confirmed Retention of urine (068867149) Problem Other amnesia (R41.3) Active confirmed Amnesia (37299945) Problem Encounter for preprocedural laboratory examination (Z01.812) Active confirmed Preoperative diagnosis (544078785) Problem Benign prostatic hyperplasia without lower urinary tract symptoms (N40.0) Active confirmed Benign pros tatic hypertrophy without outflow obstruction (421672084) Problem Benign prostatic hyperplasia with lower urinary tract symptoms (N40.1) Active confirmed Lower urinary tract symptoms due to benign prostatic hypertrophy (45693079163926) VITAL SIGNS Heart Rate 60 /min 10/22/2023 Blood pressure diastolic 68 mm/Hg 10/22/2023 Height 68.11 in 10/22/2023 Blood pressure systolic 118 mm/Hg 10/22/2023 Weight 134 lbs 10/22/2023 BMI 20.31 kg/m2 10/22/2023 Encounters Encounter Location Date Provider Diagnosis [facility] [address] [address] 02/08/2023 Winifred Sunita Retention of urine, unspecified R33.9 ; Diaphragmatic hernia without obstruction or gangrene K44.9 ; Essential (primary) hypertension I10 ; Dyspnea, unspecified R06.00 ; Nonrheumatic mitral (valve) prolapse I34.1 ; Constipation, unspecified K59.00 ; Pruritus, unspecified L29.9 and Anxiety disorder, unspecified F41.9 [facility] [address] [address] 05/03/2023 Winifred Dorsey Retention of urine, unspecified R33.9 ; Atherosclerotic heart disease of circle coronary artery without angina pectoris I25.10 ; Diaphragmatic hernia without obstruction or gangrene K44.9 ; Essential (primary) hypertension I10 ; Dyspnea, unspecified R06.00 ; Nonrheumatic mitral (valve) prolapse I34.1 ; Constipation, unspecified K59.00 ; Other specified counseling Z71.89 and Pain in left toe(s) M79.[address] [address] 05/17/2023 Winifred banegas in ght ear H61.[address] [address] 07/06/2023 Winifred Dorsey [facility] [address] [address] 07/27/2023 Winifred Dorsey [facility] [address] [address] 08/30/2023 Winifred Dorsey [facility] [address] [address] 08/30/2023 Winifred Dorsey Atherosclerotic hear t disease of circle coronary artery without angina pectoris I25.10 ; Diaphragmatic hernia without obstruction or gangrene K44.9 ; Unspecified convulsions R56.9 ; Dyspnea, unspecified R06.00 ; Essential (primary) hypertension I10 ; Retention of urine, unspecified R33.9 ; Nonrheumatic mitral (valve) prolapse I34.1 ; Constipation, unspecified K59.00 ; Other amnesia R41.3 and Insomnia, unspecified G47.[address] [address] 10/22/2023 Winifred Romantty Atherosclerotic hear t disease of circle coronary artery without angina pectoris I25.10 ; Retention of urine, unspecified R33.9 ; Hypoxemia R09.02 ; Diaphragmatic hernia without obstruction or gangrene K44.9 ; Essential (primary) hypertension I10 ; Unspecified convulsions R56.9 ; Dyspnea, unspecified R06.00 ; Constipation, unspecified K59.00 ; Other amnesia R41.3 ; Insomnia, unspecified G47.00 and Hypo-osmolality and hyponatremia E87.1 [facility] [address] [place] [address] 06/22/2023 Winifred Sunita [facility] [address] [place] [address] 06/22/2023 Winifred Sunita [facility] [address] [place] [address] 07/02/2023 Winifred Sunita [facility] [address] [place] [address] 07/03/2023 Winifred Sunita [facility] [address] [place] [address] 01/02/2023 Winifred Sunita [facility] [address] [place] [address] 02/08/2023 Winifred Sunita Hyperlipidemia, unspecified E78.5 [facility] [address] [place] [address] 02/23/2023 Winifred Sunita [facility] [address] [place] [address] 05/03/2023 Winifred Sunita Hyperlipidemia, unspecified E78.5 and Hypothyroidism, unspecified E03.9 [facility] [address] [place] [address] 05/07/2023 Winifred Sunita [facility] [address] [place] [address] 05/17/2023 Winifred Sunita [facility] [address] [place] [address] 07/05/2023 Winifred Sunita [facility] [address] [place] [address] 07/17/2023 Winifred Sunita [facility] [address] [place] [address] 07/18/2023 Winifred Sunita [facility] [address] [place] [address] 08/30/2023 Winifred Sunita Hyperlipidemia, unspecified E78.5 [facility] [address] [place] [address] 09/07/2023 Winifred Sunita [facility] [address] [place] [address] 09/10/2023 Winifred Sunita [facility] [address] [place] [address] 09/26/2023 Winifred Dorsey [facility] [address] [address] 09/28/2023 Winifred Dorsey [facility] [address] [address] 10/22/2023 Winifred Dorsey Hyperlipidemia, unspecified E78.5 and Hypothyroidism, unspecified E03.[address] [address] 05/05/2023 Winifred Dorsey [facility] [address] [address] 05/20/2023 Winifred Dorsey [facility] [address] [address] 05/20/2023 Winifred Dorsey [facility] [address] [address] 06/07/2023 Winifreddaquan Kumary ASSESSMENTS Encounter Date Diagnosis Assessment Notes Treatment Notes Treatment Clinical Notes 02/08/2023 Retention of urine, unspecified (ICD-10 - R33.9) Following up with urology, had a recent urodynamic testing, was adequate. Continue tamsulosin and finasteride. To f/u with urology as advised 02/08/2023 Hyperlipidemia, unspecified (ICD-10 - E78.5) 05/03/2023 Atherosclerotic hear t disease of circle coronary artery without angina pectoris (ICD-10 - I25.10) Status post ASHLEE x 2 to 90% stenosis proximal RCA and status post ASHLEE x 1 to 70% stenosis proximal LAD on 04/13/2023. Currently on Plavix, beta gema and aspirin. Will be following up with cardiology shortly and is due for cardiothoracic surgery in 05/2023. To f/u with cardio as advised. 05/03/2023 Retention of urine, unspecified (ICD-10 - R33.9) Following up with urology, had a recent urodynamic testing, was adequate. Continue tamsulosin and finasteride. Self cath down to 2 times a day. To f/u with urology as advised. 05/03/2023 Hyperlipidemia, unspecified (ICD-10 - E78.5) 05/17/2023 Impacted cerumen, right ear (ICD-10 - H61.21) Attempted to remove wax from right ear, will need Debrox ear drops to soften the wax. Will need to get it removed after pretreating with Debrox. 08/30/2023 Atherosclerotic hear t disease of circle coronary artery without angina pectoris (ICD-10 - I25.10) Status post ASHLEE x 2 to 90% stenosis proximal RCA and status post ASHLEE x 1 to 70% stenosis proximal LAD on 04/13/2023. Currently on Plavix, beta gema and aspirin. 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 in 06/3023, healed well. 08/30/2023 Hyperlipidemia, unspecified (ICD-10 - E78.5) 10/22/2023 Atherosclerotic hear t disease of circle coronary artery without angina pectoris (ICD-10 - I25.10) Status post ASHLEE x 2 to 90% stenosis proximal RCA and status post ASHLEE x 1 to 70% stenosis proximal LAD on 04/13/2023. Currently on Plavix, beta gema and aspirin. 10/22/2023 Hyperlipidemia, unspecified (ICD-10 - E78.5) 10/22/2023 Hypothyroidism, unspecified (ICD-10 - E03.9) 08/30/2023 Unspecified convulsions (ICD-10 - R56.9) Continue Keppra, f/u with neuro as advised. 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 Self cath down to 2 times a day. To f/u with urology as advised. 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 Will need surgery at [facility], once cardiac issues settle 02/08/2023 Diaphragmatic hernia without obstruction or gangrene (ICD-10 - K44.9) Unclear etiologies? history of PNA vs viral neuritis vs idiopathic. S/p surgical plication but unfortunately complicated by diaphragmatic hernia, pending repair at [facility] 02/08/2023 Essential (primary) hypertension (ICD-10 - I10) Borderline. Will monitor closely. Eliminate salt, alcohol in moderation. Advised importance of weight control, diet, exercise and stress management. Cont current meds. Will cont amlodipine 10 mg per day, beta gema. Dcd diuretic due to elevated BUN/Crreat. 05/03/2023 Essential (primary) hypertension (ICD-10 - I10) Stable. Will monitor closely. Eliminate salt, alcohol in moderation. Advised importance of weight control, diet, exercise and stress management. Cont current meds. Will cont amlodipine 10 mg per day, beta gema. Dcd diuretic due to elevated BUN/Creat. 08/30/2023 Dyspnea, unspecified (ICD-10 - R06.00) Ongoing issues with KAYE, most likely due to elevated diaphragm and diaphragmatic hernia which did not improve with surgical repair Also had nocturnal hypoxemia. Advised to follow-up recommendations of pulmonary and thoracic surgeon. 10/22/2023 Hypoxemia (ICD-10 - R09.02) Mainitaining good oxygen saturation. F/u with pulmonology as advised. 10/22/2023 Diaphragmatic hernia without obstruction or gangrene (ICD-10 - K44.9) S/p surgery. Advised to call surgeon with any quesions. 08/30/2023 Essential (primary) hypertension (ICD-10 - I10) Stable. Will monitor closely. Eliminate salt, alcohol in moderation. Advised importance of weight control, diet, exercise and stress management. Cont current meds. Will cont amlodipine 10 mg per day, beta gema. 02/08/2023 Dyspnea, unspecified (ICD-10 - R06.00) Ongoing issues with KAYE, most likely due to elevated diaphragm and diaphragmatic hernia. Also had nocturnal hypoxemia. Would not want oxygen supplementation at this time. Advised to follow-up recommendations of pulmonary and thoracic surgeon 05/03/2023 Dyspnea, unspecified (ICD-10 - R06.00) Ongoing issues with KAYE, most likely due to elevated diaphragm and diaphragmatic hernia. Also had nocturnal hypoxemia. Pt does not want oxygen supplementation at this time. Advised to follow-up recommendations of pulmonary and thoracic surgeon. 02/08/2023 Nonrheumatic mitral (valve) prolapse (ICD-10 - I34.1) Discussed results of recent echocardiogram done, also has CT scan findings which showed enlarged heart and possibility of enlarged pulmonary vessels and coronary calcifications, has started atorvastatin and baby aspirin by cardiology. He is awaiting a nuclear stress test shortly 05/03/2023 Nonrheumatic mitral (valve) prolapse (ICD-10 - I34.1) Discussed results of recent echocardiogram done, has started atorvastatin and baby aspirin by cardiology 10/22/2023 Essential (primary) hypertension (ICD-10 - I10) Stable. Will monitor closely. Eliminate salt, alcohol in moderation. Advised importance of weight control, diet, exercise and stress management. Cont current meds. Will cont amlodipine 10 mg per day, beta gema. 08/30/2023 Retention of urine, unspecified (ICD-10 - R33.9) Continue tamsulosin and finasteride. Self cath down to 2 times a day. To f/u with urology as advised. 08/30/2023 Nonrheumatic mitral (valve) prolapse (ICD-10 - I34.1) F/u with cardiology 10/22/2023 Unspecified convulsions (ICD-10 - R56.9) Seen by neurology recently, currently on Keppra 250 mg in the morning and 750 mg in the night. F/u with neuro as advised. 05/03/2023 Constipation, unspecified (ICD-10 - K59.00) Add good portions of fruits, vegetables and fiber to diet, encouraged hydration. may use MiraLax daily and stool softeners. 02/08/2023 Constipation, unspecified (ICD-10 - K59.00) Will get KUB and proceed accordingly. Add good portions of fruits, vegetables and fiber to diet, encouraged hydration. may use MiraLax daily and stool softeners. Pt is awaiting referral to Dr. Kline for diaphragmatic hernia. 02/08/2023 Pruritus, unspecifie d (ICD-10 - L29.9) Advised to try Aquaphor spray Over the counter 05/03/2023 Other specified counseling (ICD-10 - Z71.89) Pt is given handicapped placard for parking due to b/l knee pain. 08/30/2023 Constipation, unspecified (ICD-10 - K59.00) Add good portions of fruits, vegetables and fiber to diet, encouraged hydration. may use MiraLax daily and stool softeners. 10/22/2023 Dyspnea, unspecified (ICD-10 - R06.00) Ongoing issues with KAYE, most likely due to elevated diaphragm and diaphragmatic hernia which did not improve with surgical repair. Maintaining good oxygen saturation. F/u with pulmonary as advised. 10/22/2023 Constipation, unspecified (ICD-10 - K59.00) Add good portions of fruits, vegetables and fiber to diet, encouraged hydration. may use MiraLax daily and stool softeners. 08/30/2023 Other amnesia (ICD-1 0 - R41.3) Discussed various etiologies for symptoms,- has evidence of chronic lacunar infarcts, f/u with neuro for further evaluation and management. 05/03/2023 Pain in left toe(s) (ICD-10 - M79.675) Advised to f/u with ortho for further evaluation and management. Declines xray currently 02/08/2023 Anxiety disorder, unspecified (ICD-10 - F41.9) Discussed various treatment options again, including medications and counseling. Discussed about stress reduction and adequate sleep and hydration and nutrition. May benefit from counseling. Patient is able to cope without intervention. Takes lorazepam prn, which helps. To call if symptoms worsen 08/30/2023 Insomnia, unspecifie d (ICD-10 - G47.00) 10/22/2023 Other amnesia (ICD-1 0 - R41.3) Discussed various etiologies for symptoms,- has evidence of chronic lacunar infarcts, f/u with neuro for further evaluation and management. 10/22/2023 Insomnia, unspecifie d (ICD-10 - G47.00) Discussed sleep hygiene techniques, long-standing symptoms, managed with Ativan, discussed long-term effects of benzos. 10/22/2023 Hypo-osmolality and hyponatremia (ICD-10 - E87.1) Discussed various etiologies, will monitor closely. 02/08/2023 Other Time spent: Pre-visit: 5 minutes. Available notes and Lab Data reviewed as per HPI. Visit: 20 minutes with the patient. Planned management, education, and counseling as above. Post-visit: 10 minutes spent in documentation of visit and coordination of care. Total time spent : 35 mins 05/03/2023 Other Time spent: Pre-visit: 7 minutes. Available notes and Lab Data reviewed as per HPI. Visit: 35 minutes with the patient. Planned management, education, and counseling as above. Post-visit: 10 minutes spent in documentation of visit and coordination of care. Total time spent : 52 mins. 05/17/2023 Other Time spent: Pre-visit: 5 minutes. Available notes and Lab Data reviewed as per HPI. Visit: 10 minutes with the patient. Planned management, education, and counseling as above. Post-visit: 5 minutes spent in documentation of visit and coordination of care. Total time spent : 20 mins. 08/30/2023 Other Time spent: Pre-visit: 20 minutes. Available notes and Lab Data reviewed as per HPI. Visit: 35 minutes with the patient. Planned management, education, and counseling as above. Post-visit: 10 minutes spent in documentation of visit and coordination of care. Total time spent : 65 mins. 10/22/2023 Other Time spent: Pre-visit: 20 minutes. Available notes and Lab Data reviewed as per HPI. Visit: 35 minutes with the patient. Planned management, education, and counseling as above. Post-visit: 10 minutes spent in documentation of visit and coordination of care. Total time spent : 65 mins. PLAN OF TREATMENT Pending Test Test Name Order Date EKG 01/15/2019 EKG 12/04/2019 EKG 05/19/2019 EKG 06/09/2022 EKG 03/22/2020 EKG 01/07/2018 EKG 03/08/2017 EKG 10/27/2016 EKG 09/12/2016 EKG 09/02/2015 EKG 12/15/2014 EKG 08/22/2013 EKG 06/10/2021 CHEM BASIC PANEL 05/14/2019 CBC 05/14/2019 Complete Blood Count W/ Diff 05/05/2021 Complete Blood Count W/ Diff 07/05/2020 Complete Blood Count W/ Diff 03/15/2020 Comprehensive Metabolic Panel 03/15/2020 Basic Metabolic Panel 07/05/2020 Basic Metabolic Panel 05/05/2021 Lipid Panel 03/15/2020 Free Thyroxine (T4) 03/15/2020 Free Thyroxine (T4) 07/05/2020 Free Thyroxine (T4) 05/24/2022 Thyroid Stimulating Hormone 07/05/2020 Thyroid Stimulating Hormone 03/15/2020 Vitamin D 25 Hydroxy 03/15/2020 CXR2V 05/06/2021 CXR2V 03/16/2021 CXR2V 08/12/2022 ABDWO 06/09/2021 CARDUPBI 06/21/2021 CARDUPBI 05/17/2022 Future Test Test Name Order Date Complete Blood Count W/ Diff 10/04/2020 Basic Metabolic Panel 10/04/2020 Complete Blood Count W/ Diff 01/17/2021 Basic Metabolic Panel 01/17/2021 Complete Blood Count W/ Diff 05/22/2021 Comprehensive Metabolic Panel 05/22/2021 Thyroid Stimulating Hormone 05/22/2021 Complete Blood Count W/ Diff 07/24/2021 Basic Metabolic Panel 07/24/2021 Urinalysis 11/07/2021 Urine Culture 11/07/2021 Comprehensive Metabolic Panel 12/25/2021 Lipid Panel 12/25/2021 Complete Blood Count W/ Diff 05/24/2022 Comprehensive Metabolic Panel 05/24/2022 Lipid Panel 05/24/2022 Thyroid Stimulating Hormone 05/24/2022 Comprehensive Metabolic Panel 01/21/2023 Lipid Panel 01/21/2023 Complete Blood Count W/ Diff 04/23/2023 Comprehensive Metabolic Panel 04/23/2023 Lipid Panel 04/23/2023 Complete Blood Count W/ Diff 07/08/2023 Comprehensive Metabolic Panel 07/08/2023 Lipid Panel 07/08/2023 Thyroid Stimulating Hormone 07/08/2023 Complete Blood Count W/ Diff 10/07/2023 Comprehensive Metabolic Panel 10/07/2023 Lipid Panel 10/07/2023 Complete Blood Count W/ Diff 01/06/2024 Comprehensive Metabolic Panel 01/06/2024 Lipid Panel 01/06/2024 Thyroid Stimulating Hormone 01/06/2024 Next Appt Details Provider Name:Winifred Dorsey, 01/25/2024 03:00:00 PM, [address] [place] [address], [id number], Insurance Providers Payer Name Payer Address Payer Phone Subscriber Number Group Number Insured Name Patient Relationship to Insured Coverage Start Date Coverage End Date MEDICARE B-MA: [facility] [address] [place] [phone] [id number] ANN PEREYRA Self - patient is the insured [facility] (MEDICARE [place] [address] [place] [phone] [id number] ANN PEREYRA Self - patient is the insured MEDICAL (GENERAL) HISTORY Medical History History ICD Code HTN BPH-declines urology f/u chronic pain in ischium left side-s/p MR I 2006, no pathology found Elevated creatinine level 08/2011 stopped ASA due to pt's concerns about b leeding heartburn-on Zantac Abdominal aortic aneurysm screening-2006 -life screening squamous cell carcinoma of the nose 2016 Cologard positive, status po st colonoscopy 01/2017 Dr. Nj pathology showed tubular adenoma, sessile serrated adenoma fragments urinary retention after chiki ia repair in 2014- had Duff catheter x 1 week, followed by urology frequent PVCs, trigeminy -ev aluated by Dr. Barnett 2017-stress test negative, was advised to repeat stress test on beta blockers, and to get a cardiac MRI-patient declined follow up H/o hydrocele-followed by urology in [place]- 06/2017. pneumonia 03/2019 KAYE 2021- followed by Pulm- Dr. Thapa, found to have R elevated diaphragm, unclear etiology. Considering plication Echo 06/2021- MVP and mild pulmonary HTN BASSEM August 2022 showed Holosyst olic mitral valve prolapse of both anterior and posterior leaflets Status post ASHLEE x 2 to 90% s tenosis proximal RCA and status post ASHLEE x 1 to 70% stenosis proximal LAD on 04/13/2023- [facility] Surgical History Surgery Date(Month/Year) tonsillectomy 1947 Rt knee 1982 left inguinal hernia 1997 Lt knee 2001 s/p bilateral inguinal hernia repair on 12/30/14 b/l hydrocelectomy by Dr. Shoemaker 022 status post robotic diaphrag matic plication on 2022- Dr. Pettit
== END 2023-12-07 16:07 ==
LOC: HO.ED 20:37 → HO.EDOVER 21:05 → HO.S3 12-06 17:22
PROVIDERS: Clinical Nurse Specialist Psychiatric/Mental Health, Adult; Physician Assistant Medical; Admitting Provider Student in an Organized Health Care Education/Training Program; Emergency Provider Internal Medicine; Responsible Provider Physician Assistant Medical; Visit Provider Physician Assistant Medical
DX: G93.40 Encephalopathy, unspecified (principal); G40.909 Epilepsy, unspecified, not intractable, without status epilepticus; G93.41 Metabolic encephalopathy; F39 Unspecified mood [affective] disorder; I10 Essential (primary) hypertension; E78.5 Hyperlipidemia, unspecified; Z79.899 Other long term (current) drug therapy; I51.7 Cardiomegaly; I49.3 Ventricular premature depolarization; N40.0 Benign prostatic hyperplasia without lower urinary tract symptoms
CPT/HCPCS: 36415; 70450; 70496; 70498; 71045; 80048; 80061; 80143; 80177; 80179; 80307; 81001; 82140; 82607; 82746; 82947; 83605; 84443; 84484; 85014; 85018; 85025; 85610; 85730; 87086; 87088; 93005; 95816; 96372; 96374; 99221; 99285; J1650; J2060; Q9967; S9485

== ENCOUNTER → 2023-12-05 20:43 | Outpatient (BNV) | payer MEDICARE, OTHER, SELFPAY | PROVIDERS: Admitting Provider Student in an Organized Health Care Education/Training Program; Emergency Provider Internal Medicine; Responsible Provider Physician Assistant Medical; Visit Provider Psychiatry & Neurology Neurology | DX: G40.909 Epilepsy, unspecified, not intractable, without status epilepticus (principal); F03.90 Unspecified dementia, unspecified severity, without behavioral disturbance, psychotic disturbance, mood disturbance, and anxiety | CPT/HCPCS: 99222 ==

== ENCOUNTER → 2023-12-05 20:43 | Outpatient (BNV) | payer MEDICARE, OTHER, SELFPAY | PROVIDERS: Admitting Provider Student in an Organized Health Care Education/Training Program; Emergency Provider Internal Medicine; Responsible Provider Physician Assistant Medical; Visit Provider Clinical Nurse Specialist Psychiatric/Mental Health, Adult | DX: F39 Unspecified mood [affective] disorder (principal); G40.909 Epilepsy, unspecified, not intractable, without status epilepticus; G93.41 Metabolic encephalopathy | CPT/HCPCS: 99222 ==

== ENCOUNTER → 2023-12-05 20:43 | Outpatient (BNV) | payer MEDICARE, OTHER, SELFPAY | PROVIDERS: Admitting Provider Student in an Organized Health Care Education/Training Program; Emergency Provider Internal Medicine; Visit Provider Student in an Organized Health Care Education/Training Program | DX: G93.40 Encephalopathy, unspecified (principal) | CPT/HCPCS: 99222; 99232; 99239; 99499 ==

== ENCOUNTER 2023-12-07 16:47 | Inpatient (IN) | payer MEDICARE, OTHER, SELFPAY ==
[2023-12-07] VITALS (7 sets, daily range): BP systolic 107–178; BP diastolic 57–94; PULSE 57–68; RESP 16–20; TEMP 36.2–36.8; O2SAT 94–97; BMI 19.1
--- NOTE | ~2023-12-07 | XR_ITS ---
EXAMINATION: XR CHEST CLINICAL INFORMATION: Fever and delirium COMPARISON: None available. TECHNIQUE: Frontal view of the chest was obtained. FINDINGS: The heart and pulmonary vessels appear normal. There is a bulge in the right hemidiaphragm medially, unchanged from prior. Again seen is some right midlung/basilar atelectasis. No pleural effusions. Bony thorax is unremarkable aside from degenerative changes. XR/XR chest 1V IMPRESSION: No acute intrathoracic disease. Electronically signed by: You Jiménez MD 12/18/2023 10:35 AM EDT
--- NOTE | ~2023-12-07 | XR_ITS ---
EXAMINATION: XR HIP, RIGHT XR HIP, LEFT CLINICAL INFORMATION: Fall. COMPARISON: None TECHNIQUE: AP and frog-leg lateral views of each hip. AP view of the pelvis FINDINGS: Bones are osteopenic. Mild osteoarthritis in both hips with joint space narrowing and small marginal osteophytes. There is [id number] osteoarthritis in the SI joints and probable ankylosis. Marked multilevel degenerative disc disease in the lumbar spine with right convex scoliosis and multilevel facet arthropathy. No acute soft tissue findings. XR/XR hip LT min 2V IMPRESSION: 1. No acute fracture or malalignment identified in the pelvis and hips. 2. Mild osteoarthritis in the hips. 3. 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
--- NOTE | ~2023-12-07 | XR_ITS ---
EXAMINATION: XR CHEST CLINICAL INFORMATION: Low oxygen saturation. COMPARISON: Chest radiograph 12/05/2023. TECHNIQUE: Frontal view of the chest was obtained. FINDINGS: Stable enlargement of the cardiomediastinal silhouette. Mitral annular calcifications. Coronary artery stent. Unchanged focal elevation of the medial right hemidiaphragm. Mild bibasilar streaky opacities. No dense consolidation. No pleural effusion. No pneumothorax. No acute osseous findings. Chronic deformity of the right seventh rib. XR/XR chest 1V IMPRESSION: 1. Mild bibasilar streaky opacities, likely subsegmental atelectasis. 2. 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 3. 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 Electronically signed by: Lashonda Ballesteros MD 12/16/2023 05:43 PM EDT
--- NOTE | ~2023-12-07 | CT_ITS ---
EXAMINATION: CT HEAD WITHOUT CONTRAST CLINICAL INFORMATION: Fall COMPARISON: 12/05/2023 TECHNIQUE: Multidetector volumetric imaging of the head was performed without intravenous contrast material. This CT examination was performed using dose optimization techniques as appropriate, variously including the following: *Automated exposure control *Adjustment of mA and/or kV according to patient size (this includes techniques or standardized protocols for targeted exams where dose is matched to indication/reason for exam; i.e. extremities or head) *Use of iterative reconstruction technique Dose: 606 mGy-cm FINDINGS: There is no evidence of acute intracranial hemorrhage or territorial infarction. No abnormal mass-effect or midline shift is seen. [place] to white matter differentiation is well preserved. No extra axial fluid collections. There is commensurate enlargement of the ventricles and extraaxial CSF spaces consistent with mild volume loss. Multiple areas of hypoattenuation in the subcortical and periventricular white matter are most consistent with chronic microangiopathic changes. 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 Calcific atherosclerosis is present within the cavernous segments of the internal carotid arteries. The soft tissues and osseous structures are normal. The sinuses and mastoid air cells are clear. CT/CT head/brain wo IV con IMPRESSION: 1. No acute intracranial pathology. 2. Mild cerebral atrophy and moderate chronic white matter microangiopathy. 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
--- NOTE | ~2023-12-07 | XR_ITS ---
EXAMINATION: XR HIP, RIGHT XR HIP, LEFT CLINICAL INFORMATION: Fall. COMPARISON: None TECHNIQUE: AP and frog-leg lateral views of each hip. AP view of the pelvis FINDINGS: Bones are osteopenic. Mild osteoarthritis in both hips with joint space narrowing and small marginal osteophytes. There is [id number] osteoarthritis in the SI joints and probable ankylosis. Marked multilevel degenerative disc disease in the lumbar spine with right convex scoliosis and multilevel facet arthropathy. No acute soft tissue findings. XR/XR hip RT min 2V IMPRESSION: 1. No acute fracture or malalignment identified in the pelvis and hips. 2. Mild osteoarthritis in the hips. 3. 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
--- NOTE | 2023-12-07 16:02 | P.HPPS_ITS ---
[facility] Date of Service: 12/07/23 Chief Complaint: HI/SI Sources of Information: patient interviewed, chart reviewed and crisis/core team assessment reviewed Additional Sources of Information: , Kiana [phone] [facility] Subjective Notes: Lam Warning (given and shows understanding) and Conditional Voluntary Narrative: Mr. Gallego was transferred from [place] where he was receiving psy chiatric treatment for HI and SI after attempting to suffocate and pull knife to [facility] ED due to presenting as lethargic and increasingly more confused. There was questions of seizure and he was admitted to medicine. He was seen by neurology, pt originally on keppra and switched to depakote due to concern that keppra may be exacerbating psychiatric symptoms including depression and suicidality. Head CT was completed which shows atrophy, particularly in left frontal lobe and periventricular vascular changes. Pt seen in the room. He is lying down, constricted affect. First thing he says this script writer is I want to kill myself. He then adds I tried to suffocate my but was unsuccessful. when asked reason to why to kill his , pt reports because she would stop me from killing myself. Pt reports he has been depressed for sometime. He repeats a few times I ruined my life and her life, and everyone's life. When asked to elaborate as to in what way he has ruined his and others life he does not provide more information. when asked if he suspects is doing something to hurt him or if he is afraid that people are trying to harm him, he denies. He also denies any revengeful or angry feeling towards his . He reports I don't see any other option, only killing myself. He denies VH/AH but does appear internally preoccupied. Collateral information gathered from who reports he has been presenting with mood changes, more withdrawn specially since AUGUST. She also reports cognitive/memory changes. 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 She reports he has not reported suicidal ideation to her and therefore, finding him at night standing by her side with pillow was very scary. She reports than she pull pillow to side, get up from bed and then he went to kitchen and grab a knife. reports he has never been aggressive towards her. She reports recently she was cleaning the bathroom and took rugs out of bathroom and he seemed particularly upset about her not putting them back and insisting she should do it with out apparently reason. She reports he was and avid reader and does not read anymore. Past Psychiatric History: IP: Denies OP: Denies Medical Evaluation Reviewed: Yes COUNT INCLUDES THE [facility] Medical History BPH (benign prostatic hyperplasia) Mixed hyperlipidemia Hypertension Mood disorder Seizure disorder Family History: none Social History: Pt has been for 52 years. He worked for [employer]. He lives with . He has an adult daughter. Substance History: none Trauma History: none Meds/Allergies Meds Home Medications ?Medication ?Instructions ?Recorded ?Confirmed ?Type amlodipine 10 mg tablet 10 mg PO DAILY 12/05/23 12/06/23 History atorvastatin 20 mg tablet 20 mg PO DAILY 12/05/23 12/06/23 History clopidogrel 75 mg tablet 75 mg PO DAILY 12/05/23 12/06/23 History docusate sodium 100 mg capsule 100 mg PO BEDTIME 12/05/23 12/06/23 History (Colace) escitalopram oxalate 5 mg tablet 5 mg PO DAILY 12/05/23 12/06/23 History (Lexapro) finasteride 5 mg tablet 5 mg PO DAILY 12/05/23 12/06/23 History metoprolol succinate 25 mg 25 mg PO DAILY 12/05/23 12/06/23 History tablet,extended release 24 hr mirtazapine 15 mg tablet (Remeron) 7.5 mg PO BEDTIME 12/05/23 12/06/23 History polyethylene glycol 3350 17 17 g PO BEDTIME 12/05/23 12/06/23 History gram/dose oral powder (Miralax) tamsulosin 0.4 mg capsule 0.4 mg PO DAILY 12/05/23 12/06/23 History venlafaxine 37.5 mg tablet 37.5 mg PO DAILY 12/05/23 12/06/23 History acetaminophen 325 mg tablet 650 mg PO Q6H PRN Pain (Scale 12/06/23 12/06/23 History Score 1-3) aspirin 81 mg chewable tablet 81 mg PO DAILY 12/06/23 12/06/23 History haloperidol 5 mg tablet 5 mg PO Q6H PRN Psychosis 12/06/23 12/06/23 History lactulose 20 gram/30 mL oral 20 g PO DAILY PRN Constipation 12/06/23 12/06/23 History solution magnesium hydroxide 400 mg/5 mL 30 ml PO DAILY PRN Constipation 12/06/23 12/06/23 History oral suspension (Milk of Magnesia) Allergies Allergies Allergy/AdvReac Type Severity Reaction Status Date / Time No Known Allergies Allergy Verified 12/06/23 18:16 Mental Status Exam Mental Status Exam Narrative: Appearance: wearing hospital gown, lying in bed, in NAD Behavior: cooperative Psychomotor: some retardation Speech: mostly clear, regular rate, some mild delayed at times, spontaneous TP: perseverance on wanting to TC: wanting to Mood: depressed Affect: constricted, SI: reports suicidal ideation HI: towards in context of thinking she is preventing him from ending his own life. VH/AH: appears internally preoccupied Delusions: suspect underlying delusional content Insight/judgment: impaired x 2. Memory/cog: alert, oriented to place, month, year. 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 Gallego is a 83 year-old male who was transfered from [place] to [facility] due to presenting as lethargic. Pt thought to have a seizure. He was at [place] after pt attempted to suffocate with pillow and also hold a knife and threaten to kill her. Pt reports he did this because he wants to kill himself and she would stop him. He continues to report suicidal ideation, no much remorse about attempt to harm his , he talks with matter of fact. However, his rationale is odd and I suspect there underlying psychosis to his depressed mood. Some catatonic like symptoms too- staring, some delayed in responses. Head CT shows atrophy to left frontal lobe. PLAN 1. Admit to S1, CV, 1;1 for safety given unpredictable acts of self harm or to others. 2. will start low dose olanzapine. low dose ativan TID 3. will keep only remeron as antidepressant, d/c lexapro and d/c effexor. 4. after care planning. Patient educated on: diagnosis and medication risk/benefits Informed Consent: understands Reason for continued inpatient stay Substantial Risk for: harm to self, harm to others and inability to function Statement Statement: I have reviewed the history and physical and performed a pertinent examination on my patient. No changes have occurred unless specified. If the History and Physical was not performed prior to admission, the Hospitalist's service will be consulted for completing the admission physical. Time Spent With Patient Time: Total time managing care of this patient today ____ minutes.
[2023-12-07] MEDS: LORazepam 0.5 MG TABLET PO ×2 (18:30→20:10)
--- NOTE | 2023-12-07 18:47 | PC.ADMIT ---
Pt. arrived on unit via wheelchair at 17:15 accompanied by RN, security, and PSA. Changeover for contraband search and skin assmt. performed without significant findings. 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 UE's, L > R. Pt. Participated very little in admission. Oriented to person and grossly to time and place. Affect and mood blunted. Responses to questions absent or delayed. Gait unsteady due to deconditioning. Provided a walker. Responses vague regarding SI, HI. Maintained on 1:1 observation. Provider spoke with at length and she was notified of his admission. Provider reviewed meds and only continued 1/3 antidepressants, started lorazepam TID, and a low dose of olanzapine daily. Keppra has been discontinued and Depakote started.
[2023-12-07] MEDS: Tamsulosin HCL 0.4 MG CAPSULE PO (20:10)
[2023-12-07] MEDS: OLANZapine 2.5 MG TABLET PO (20:10)
[2023-12-07] MEDS: Divalproex Sodium 500 MG TABLET.DR PO (20:10)
[2023-12-07] MEDS: Atorvastatin Calcium 20 MG TABLET PO (20:10)
[2023-12-07] MEDS: Mirtazapine 15 MG TABLET PO (20:10)
--- NOTE | 2023-12-07 22:38 | PC.NURSE ---
Addendum entered by Dotty Zayas RN 12/07/23 23:42: call center director Dr. Bartholomew notified at 22:35. Original Note: Patient was found in the bathroom on the floor in a seated position. He reported that he felt lightheaded while trying to use the bathroom, fell, and hit his forehead on the floor. He denied loss of consciousness. A rapid response was called, patient was seen and examined by the hospitalist. He reported pain to his head and right hip. He ambulated with a walker and 2 assist back to bed. Vital signs and neuros started. No complaints of nausea, vomiting. Body assessment, no bleeding or bruising noted. Vital signs assessed.
--- NOTE | 2023-12-07 22:42 | PM.EVENT ---
Event Note Date of Service: 12/07/23 Event Note: Rapid response was called as patient had a fall. Patient was using the restroom unassisted and states he lost his balance. Did not lose consciousness prior to the fall. No dizziness or lightheadedness, chest pain or palpitations prior to the fall. No jerking movement of extremities. States he hit his head and landed on his right hip. Will obtain CT head along with bilateral hip x-rays. Time Spent With Patient Time: Total time managing care of this patient today ____ minutes.
--- NOTE | 2023-12-07 23:05 | PC.NURSE ---
Patient brought to ED for cat scan and x-ray at 22:54, accompanied by floor staff.
--- NOTE | 2023-12-07 23:30 | PC.NURSE ---
Patient returned to the unit at 23:16. He returned to his room in a wheelchair and ambulated with a walker and 1 assist to bed. Continued vitals/neuro checks per protocol.
[2023-12-08] VITALS (12 sets, daily range): BP systolic 120–173; BP diastolic 60–94; PULSE 56–76; RESP 16–20; TEMP 36.2–36.8; O2SAT 93–97
[2023-12-08 07:06] LABS: Estimated Average Glucose 126 mg/dL
[2023-12-08 07:11] LABS: Alanine Aminotransferase 15 U/L (0-40); Albumin Level 3.6 g/dL (3.5-5.0); Alkaline Phosphatase 69 U/L (39-117); Anion Gap 12 (12-20); Aspartate Amino Transferase 21 U/L (5-37); Bilirubin Total 0.5 mg/dL (0.0-1.0); Blood Urea Nitrogen 26 mg/dL (9-16); Calcium 9.3 mg/dL (8.4-10.2); Carbon Dioxide 26 mmol/L (22-29); Chloride 105 mmol/L (96-108); Cholesterol 108 mg/dL (<200); Creatinine Clr Calc Pharmacy 42.1; Estimated Glomerular Filt Rate > 60; Glucose Fasting 82 mg/dL (60-99); HDL Cholesterol 53 mg/dL (>40); LDL Cholesterol Calculated 45 mg/dL (<100); Potassium 3.8 mmol/L (3.3-5.1); Sodium 139 mmol/L (135-145); Total Protein 6.2 g/dL (6.5-8.0); Triglycerides 51 mg/dL (<150)
[2023-12-08 07:26] LABS: HIV AB/AG Nonreactive (Nonreactive)
[2023-12-08 07:27] LABS: Thyroid Stimulating Hormone 1.72 uIU/mL (0.32-4.0)
[2023-12-08 07:39] LABS: Folate 11.9 ng/mL (> or = 4.0); Vitamin B12 460 pg/mL (200-900)
--- NOTE | 2023-12-08 07:42 | PC.NURSE ---
, Kiana, notified of fall.
[2023-12-08] MEDS: Finasteride 5 MG TABLET PO (08:22)
[2023-12-08] MEDS: Aspirin 81 MG TAB.CHEW PO (08:22)
[2023-12-08] MEDS: Metoprolol Succinate ER 25 MG TAB.ER.24H PO (08:22)
[2023-12-08] MEDS: Divalproex Sodium 500 MG TABLET.DR PO ×2 (08:22→20:31)
[2023-12-08] MEDS: amLODIPine Besylate 10 MG TABLET PO (08:22)
[2023-12-08] MEDS: LORazepam 0.5 MG TABLET PO ×3 (08:22→20:31)
[2023-12-08] MEDS: OLANZapine 2.5 MG TABLET PO ×2 (08:22→20:31)
[2023-12-08] MEDS: Clopidogrel Bisulfate 75 MG TABLET PO (08:22)
--- NOTE | 2023-12-08 15:48 | HO.PSYCHPN ---
Subjective Subjective Date of Service: 12/08/23 Reason For Visit: HI/SI Interim History: in ruddy chair with 1:1 staff. calm, cooperative. asking about 3-day notice, says he will discuss with his . no requests or complaints otherwise. per staff, fell last NOC. unsteady gait. in recliner. disoriented. needs 1x1. HTN OOC. Mental Status Exam Mental Status Exam Narrative: Appearance: wearing hospital gown, lying in ruddy chair, in NAD Behavior: cooperative Psychomotor: some retardation Speech: mostly clear, regular rate, some mild delayed at times, spontaneous TC: wanting to discharge TP: superficially linear Mood: not assessed Affect: constricted, SI: none expressed HI: none expressed VH/AH: appears internally preoccupied Delusions: suspect underlying delusional content Insight/judgment: impaired x 2. Memory/cog: alert, oriented to place, month, year. pending MOCA Diagnostics Vital Signs (24Hr): Vital Signs - 24 hr 12/07/23 17:20 12/07/23 19:48 12/07/23 22:17 Temperature 97.2 F 97.2 F Pulse Rate 67 60 65 Respiratory Rate 16 16 20 Blood Pressure 123/73 107/57 L 160/94 H Pulse Oximetry 95 95 97 Oxygen Delivery Method Room Air Room Air Room Air 12/07/23 22:28 12/07/23 22:43 12/07/23 23:18 Temperature 98.3 F 98.1 F 97.8 F Pulse Rate 68 64 57 Respiratory Rate 18 18 16 Blood Pressure 174/81 H 142/73 H 178/80 H Pulse Oximetry 94 95 95 Oxygen Delivery Method Room Air Room Air Room Air 12/07/23 23:33 12/08/23 00:03 12/08/23 00:18 Temperature 97.6 F 97.5 F Pulse Rate 59 58 65 Respiratory Rate 18 16 20 Blood Pressure 145/81 H 148/77 H 160/94 H Pulse Oximetry 94 93 97 Oxygen Delivery Method Room Air Room Air 12/08/23 00:33 12/08/23 00:48 12/08/23 01:47 Temperature 97.5 F 97.4 F 97.6 F Pulse Rate 58 61 56 Respiratory Rate 18 18 16 Blood Pressure 173/76 H 166/77 H 155/66 H Pulse Oximetry 96 96 94 Oxygen Delivery Method Room Air Room Air Room Air 12/08/23 02:44 12/08/23 02:51 12/08/23 03:44 Temperature 97.5 F 97.4 F Pulse Rate 58 62 64 Respiratory Rate 16 18 Blood Pressure 170/79 H 156/74 H 146/70 H Pulse Oximetry 94 94 Oxygen Delivery Method Room Air Room Air 12/08/23 04:42 12/08/23 07:55 Temperature 97.1 F 98.2 F Pulse Rate 58 60 Respiratory Rate 16 18 Blood Pressure 156/70 H 162/74 H Pulse Oximetry 93 94 Oxygen Delivery Method Room Air Room Air BMI result Body Mass Index 19.1 Labs 12/08/23 06:36 Labs: Laboratory Results - last 48 hr 12/08/23 06:36 Sodium 139 Potassium 3.8 Chloride 105 Carbon Dioxide 26 Anion Gap 12 BUN 26 H Creatinine 1.03 Estim Creat Clear Calc 42.1 Estimated GFR > 60 Fasting Glucose 82 Estimat Average Glucose 126 Hemoglobin A1c % 6.0 Calcium 9.3 D Total Bilirubin 0.5 AST 21 ALT 15 Alkaline Phosphatase 69 Total Protein 6.2 L Albumin 3.6 Triglycerides 51 Cholesterol 108 LDL Cholesterol, Calc 45 HDL Cholesterol 53 Vitamin B12 460 Folate 11.9 TSH 1.72 HIV 1&2 Ab/P24 Ag 4thGn Nonreactive Imaging Radiology Impressions: ITS Impressions Head CT 12/07/23 23:03 IMPRESSION: 1. No acute intracranial pathology. 2. Mild cerebral atrophy and moderate chronic white matter microangiopathy. 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 Hip X-Ray 12/07/23 23:11 IMPRESSION: 1. No acute fracture or malalignment identified in the pelvis and hips. 2. Mild osteoarthritis in the hips. 3. 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 Hip X-Ray 12/07/23 23:11 IMPRESSION: 1. No acute fracture or malalignment identified in the pelvis and hips. 2. Mild osteoarthritis in the hips. 3. 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 Medications Medications Current Medications Acetaminophen (Acetaminophen 325 Mg Tablet) 650 mg PO Q6H PRN PRN Reason: Headache/Pain Mild Scale (1-3) Al Hydroxide/Mg Hydroxide (Magnesium Hydrox/Alum Hydrox 30 Ml Oral.Susp) 30 ml PO Q6H PRN PRN Reason: Heartburn/Nausea Amlodipine Besylate (Amlodipine Besylate 10 Mg Tablet) 10 mg PO DAILY [facility]; Protocol Last Admin: 12/08/23 08:22 Dose: 10 mg Aspirin (Aspirin 81 Mg Tab.Chew) 81 mg PO DAILY [facility] Last Admin: 12/08/23 08:22 Dose: 81 mg Atorvastatin Calcium (Atorvastatin Calcium 20 Mg Tablet) 20 mg PO BEDTIME [facility] Last Admin: 12/07/23 20:10 Dose: 20 mg Clopidogrel Bisulfate (Clopidogrel Bisulfate 75 Mg Tablet) 75 mg PO DAILY [facility] Last Admin: 12/08/23 08:22 Dose: 75 mg Divalproex Sodium (Divalproex Sodium 500 Mg Tablet.Dr) 500 mg PO BID [facility] Last Admin: 12/08/23 08:22 Dose: 500 mg Finasteride (Finasteride 5 Mg Tablet) 5 mg PO DAILY [facility] Last Admin: 12/08/23 08:22 Dose: 5 mg Lorazepam (Lorazepam 0.5 Mg Tablet) 0.5 mg PO TID [facility] Last Admin: 12/08/23 14:46 Dose: 0.5 mg Magnesium Hydroxide (Milk Of Magnesia 30 Ml Oral.Susp) 30 ml PO DAILY PRN PRN Reason: Constipation Metoprolol Succinate (Metoprolol Succinate Er 25 Mg Tab.Er.24h) 25 mg PO DAILY [facility]; Protocol Last Admin: 12/08/23 08:22 Dose: 25 mg Mirtazapine (Mirtazapine 15 Mg Tablet) 15 mg PO BEDTIME [facility] Last Admin: 12/07/23 20:10 Dose: 15 mg Olanzapine (Olanzapine 2.5 Mg Tablet) 2.5 mg PO BID [facility] Last Admin: 12/08/23 08:22 Dose: 2.5 mg Tamsulosin HCl (Tamsulosin Hcl 0.4 Mg Capsule) 0.4 mg PO BEDTIME [facility] Last Admin: 12/07/23 20:10 Dose: 0.4 mg Trazodone HCl (Trazodone Hcl 50 Mg Tablet) 50 mg PO BEDTIME MRX1 PRN PRN Reason: Insomnia Allergies Allergies Allergy/AdvReac Type Severity Reaction Status Date / Time No Known Allergies Allergy Verified 12/06/23 18:16 Assessment & Plan Assessment & Plan (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 Gallego is a 83 year-old male who was transfered from [place] to [facility] due to presenting as lethargic. Pt thought to have a seizure. He was at [place] after pt attempted to suffocate with pillow and also hold a knife and threaten to kill her. Pt reports he did this because he wants to kill himself and she would stop him. He continues to report suicidal ideation, no much remorse about attempt to harm his , he talks with matter of fact. However, his rationale is odd and I suspect there underlying psychosis to his depressed mood. Some catatonic like symptoms too- staring, some delayed in responses. Head CT shows atrophy to left frontal lobe. PLAN 1. Admit to S1, CV, 1;1 for safety given unpredictable acts of self harm or to others. 2. will start low dose olanzapine. low dose ativan TID 3. will keep only remeron as antidepressant, d/c lexapro and d/c effexor. 4. after care planning. Reason for continued inpatient stay Substantial Risk for: harm to self, harm to others and inability to function Time Spent With Patient Time: Total time managing care of this patient today ____ minutes.
--- NOTE | 2023-12-08 18:19 | PM.EVENT ---
Event Note Date of Service: 12/08/23 Event Note: Consult placed to evaulate patient for hypertension. Apparently patient had a fall last night and overnight vitals were being checked every 30-60 minutes with elevated readings. Unclear why the vitals were being taken so frequently. Blood pressure rechecked now and patient is normotensive at 120/60. He has otherwise been normotensive. Would not recommend change in management at this time. Would also not recommend waking patient so frequently for vitals check unless change in clinical condition in which case please notify hospitalist or attending provider Time Spent With Patient Time: Total time managing care of this patient today ____ minutes.
[2023-12-08] MEDS: Atorvastatin Calcium 20 MG TABLET PO (20:31)
[2023-12-08] MEDS: Tamsulosin HCL 0.4 MG CAPSULE PO (20:31)
[2023-12-08] MEDS: Mirtazapine 15 MG TABLET PO (20:31)
[2023-12-09] MEDS: traZODone HCL 50 MG TABLET PO ×2 (01:19→20:55)
[2023-12-09 10:12] VITALS: BP 201/90; PULSE 104; RESP 17; O2SAT 96
[2023-12-09] MEDS: Metoprolol Succinate ER 25 MG TAB.ER.24H PO (10:15)
[2023-12-09] MEDS: amLODIPine Besylate 10 MG TABLET PO (10:15)
[2023-12-09] MEDS: Aspirin 81 MG TAB.CHEW PO (10:16)
[2023-12-09] MEDS: Clopidogrel Bisulfate 75 MG TABLET PO (10:16)
[2023-12-09] MEDS: LORazepam 0.5 MG TABLET PO ×2 (10:16→20:55)
[2023-12-09] MEDS: Divalproex Sodium 500 MG TABLET.DR PO ×2 (10:16→20:55)
[2023-12-09] MEDS: OLANZapine 2.5 MG TABLET PO (10:16)
[2023-12-09] MEDS: Finasteride 5 MG TABLET PO (10:17)
[2023-12-09 11:39] VITALS: BP 122/73
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
--- NOTE | 2023-12-09 16:43 | PC.NURSE ---
Patient's BP was taken this manually this morning with a reading of 200's/90, pt did not appear to be in any distress/discomfort. The was notified via tiger text and the patient was given his scheduled BP medications (amlodipine 10mg and metoprolol 5mg). Manual BP was re-checked an hour later and went down to 122/73, provider notified again of new results.
[2023-12-09 20:00] VITALS: BP 142/85; PULSE 67; RESP 18; TEMP 36.2; O2SAT 95
[2023-12-09] MEDS: OLANZapine 5 MG TABLET PO (20:55)
[2023-12-09] MEDS: Tamsulosin HCL 0.4 MG CAPSULE PO (20:55)
[2023-12-09] MEDS: Atorvastatin Calcium 20 MG TABLET PO (20:55)
[2023-12-09] MEDS: Mirtazapine 15 MG TABLET PO (20:55)
[2023-12-10 09:23] LABS: RPR Rapid Plasma Reagin NON-REACTIVE (NON-REACTIVE)
[2023-12-10 09:35] VITALS: BP 159/81; PULSE 60; RESP 16; TEMP 36.7; O2SAT 93
[2023-12-10] MEDS: Finasteride 5 MG TABLET PO (09:40)
[2023-12-10] MEDS: amLODIPine Besylate 10 MG TABLET PO (09:40)
[2023-12-10] MEDS: Metoprolol Succinate ER 25 MG TAB.ER.24H PO (09:40)
[2023-12-10] MEDS: Divalproex Sodium 500 MG TABLET.DR PO ×2 (09:40→20:25)
[2023-12-10] MEDS: LORazepam 0.5 MG TABLET PO (09:40)
[2023-12-10] MEDS: Aspirin 81 MG TAB.CHEW PO (09:40)
[2023-12-10] MEDS: Clopidogrel Bisulfate 75 MG TABLET PO (09:40)
[2023-12-10] MEDS: OLANZapine 2.5 MG TABLET PO (09:40)
[2023-12-10 10:11] LABS: Ammonia 25 umol/L (13-55)
[2023-12-10 13:14] VITALS: BMI 19.1
--- NOTE | 2023-12-10 13:25 | MHC.CLN ---
NUTRITION DIET=REGULAR, SAFETY TRAY. ENSURE BID TO PROVIDE ADDITIONAL NUTRITION. SUPPLEMENT PROVIDES 700 KCALS, 40 G PROTEIN. UNDER WEIGHT FOR HEIGHT, 81% IBW. DOES NOT APPEAR TO BE MALNOURISHED. MONITOR PO INTAKE AND ENCOURAGE SUPPLEMENTS. SEE CLINICAL NUTRITION ASSESSMENT 12/10/23.
[2023-12-10 20:00] VITALS: BP 137/71; PULSE 66; RESP 18; TEMP 36.9; O2SAT 93
[2023-12-10] MEDS: Atorvastatin Calcium 20 MG TABLET PO (20:24)
[2023-12-10] MEDS: traZODone HCL 50 MG TABLET PO ×2 (20:24→21:38)
[2023-12-10] MEDS: Tamsulosin HCL 0.4 MG CAPSULE PO (20:24)
[2023-12-10] MEDS: Mirtazapine 15 MG TABLET PO (20:25)
[2023-12-10] MEDS: OLANZapine 5 MG TABLET PO (20:25)
[2023-12-10] MEDS: LORazepam 1 MG TABLET PO (21:39)
[2023-12-11 08:15] VITALS: BP 196/91; PULSE 55; RESP 14; TEMP 36.8; O2SAT 98
[2023-12-11 08:22] VITALS: BP 208/15; PULSE 58; RESP 14; O2SAT 98
[2023-12-11 08:28] VITALS: BP 190/86; PULSE 58; RESP 16; O2SAT 98
[2023-12-11 08:29] VITALS: BP 166/82; PULSE 60; RESP 14; O2SAT 98
[2023-12-11 08:49] VITALS: BP 166/82; PULSE 55
[2023-12-11] MEDS: Clopidogrel Bisulfate 75 MG TABLET PO (08:49)
[2023-12-11] MEDS: Aspirin 81 MG TAB.CHEW PO (08:49)
[2023-12-11] MEDS: Finasteride 5 MG TABLET PO (08:49)
[2023-12-11] MEDS: Divalproex Sodium 500 MG TABLET.DR PO ×2 (08:49→20:41)
[2023-12-11] MEDS: amLODIPine Besylate 10 MG TABLET PO (08:49)
[2023-12-11] MEDS: Metoprolol Succinate ER 25 MG TAB.ER.24H PO (08:49)
[2023-12-11] MEDS: OLANZapine 2.5 MG TABLET PO (08:49)
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
[2023-12-11 20:38] VITALS: BP 152/70; PULSE 54; RESP 16; TEMP 36; O2SAT 96
[2023-12-11] MEDS: OLANZapine 5 MG TABLET PO (20:40)
[2023-12-11] MEDS: Atorvastatin Calcium 20 MG TABLET PO (20:40)
[2023-12-11] MEDS: Mirtazapine 15 MG TABLET PO (20:41)
[2023-12-11] MEDS: Tamsulosin HCL 0.4 MG CAPSULE PO (20:41)
[2023-12-12 08:00] VITALS: BP 108/63; PULSE 68; RESP 16; TEMP 36.3; O2SAT 96
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
[2023-12-12] MEDS: Divalproex Sodium Sprinkles 125 MG CAP.DR.SPR 500 MG PO ×2 (09:48→20:34)
[2023-12-12] MEDS: Finasteride 5 MG TABLET PO (09:49)
[2023-12-12] MEDS: Metoprolol Succinate ER 25 MG TAB.ER.24H PO (09:49)
[2023-12-12] MEDS: amLODIPine Besylate 10 MG TABLET PO (09:49)
[2023-12-12] MEDS: OLANZapine 2.5 MG TABLET PO (09:49)
[2023-12-12] MEDS: Clopidogrel Bisulfate 75 MG TABLET PO (09:49)
[2023-12-12] MEDS: Aspirin 81 MG TAB.CHEW PO (09:50)
--- NOTE | 2023-12-12 11:27 | MHC.CLN ---
F/U DIET=REGULAR, SAFETY TRAY. ENSURE BID TO PROVIDE ADDITIONAL NUTRITION. SUPPLEMENT PROVIDES 700 KCALS, 40 G PROTEIN. UNDER WEIGHT FOR HEIGHT, 81% IBW. INTAKE VARIABLE, 0-100%. CONTINUE CURRENT DIET AND SUPPLEMENT. ENCOURAGE INTAKE ABLE.
[2023-12-12 14:29] LABS: Hematocrit 38.6 % (42.0-52.0); Hemoglobin 13.4 g/dl (14.0-18.0); Mean Corpuscular HGB Conc 34.7 g/dl (31.0-36.0); Mean Corpuscular Hemoglobin 33.8 pg (27.0-33.0); Mean Corpuscular Volume 97.5 fL (80.0-98.0); Mean Platelet Volume 10.3 fL (9.4-12.4); Platelet Count 190 X10*3/uL (160-400); Red Blood Count 3.96 X10*6/uL (4.60-5.80); Red Cell Distribution Width 13.1 % (11.0-16.0); White Blood Count 6.3 X10*3/uL (4.8-10.8)
[2023-12-12 14:48] LABS: Alanine Aminotransferase 16 U/L (0-40); Albumin Level 3.5 g/dL (3.5-5.0); Alkaline Phosphatase 80 U/L (39-117); Anion Gap 13 (12-20); Aspartate Amino Transferase 23 U/L (5-37); Bilirubin Total 0.2 mg/dL (0.0-1.0); Blood Urea Nitrogen 43 mg/dL (9-16); Calcium 9.1 mg/dL (8.4-10.2); Carbon Dioxide 26 mmol/L (22-29); Chloride 107 mmol/L (96-108); Creatinine Clr Calc Pharmacy 30.6; Estimated Glomerular Filt Rate 47; Glucose Random 156 mg/dL (60-115); Potassium 3.9 mmol/L (3.3-5.1); Sodium 142 mmol/L (135-145); Total Protein 6.2 g/dL (6.5-8.0)
[2023-12-12 20:00] VITALS: BP 156/63; PULSE 60; RESP 20; TEMP 36.2; O2SAT 94
[2023-12-12] MEDS: Mirtazapine 30 MG TABLET PO (20:33)
[2023-12-12] MEDS: Atorvastatin Calcium 20 MG TABLET PO (20:33)
[2023-12-12] MEDS: OLANZapine 5 MG TABLET PO (20:33)
[2023-12-12] MEDS: Tamsulosin HCL 0.4 MG CAPSULE PO (20:33)
[2023-12-13 07:00] VITALS: BMI 20.8
[2023-12-13 08:00] VITALS: BP 136/82; PULSE 62; RESP 20; TEMP 36.2; O2SAT 97
[2023-12-13 08:23] LABS: Valproate 83.9 mcg/mL (50.0-100.0)
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
[2023-12-13 09:14] VITALS: BP 137/82
[2023-12-13] MEDS: amLODIPine Besylate 10 MG TABLET PO (09:14)
[2023-12-13] MEDS: Finasteride 5 MG TABLET PO (09:16)
[2023-12-13] MEDS: Divalproex Sodium Sprinkles 125 MG CAP.DR.SPR 500 MG PO ×2 (09:17→21:17)
[2023-12-13 09:19] VITALS: BP 137/82; PULSE 62
[2023-12-13] MEDS: Metoprolol Succinate ER 25 MG TAB.ER.24H PO (09:19)
[2023-12-13] MEDS: Aspirin 81 MG TAB.CHEW PO (09:20)
[2023-12-13] MEDS: Clopidogrel Bisulfate 75 MG TABLET PO (09:21)
[2023-12-13 11:05] LABS: Alanine Aminotransferase 20 U/L (0-40); Albumin Level 3.6 g/dL (3.5-5.0); Alkaline Phosphatase 82 U/L (39-117); Anion Gap 11 (12-20); Aspartate Amino Transferase 39 U/L (5-37); Bilirubin Total 0.3 mg/dL (0.0-1.0); Blood Urea Nitrogen 29 mg/dL (9-16); Calcium 9.3 mg/dL (8.4-10.2); Carbon Dioxide 33 mmol/L (22-29); Chloride 103 mmol/L (96-108); Creatinine Clr Calc Pharmacy 41.7; Estimated Glomerular Filt Rate > 60; Glucose Random 102 mg/dL (60-115); Potassium 3.6 mmol/L (3.3-5.1); Sodium 143 mmol/L (135-145); Total Protein 6.4 g/dL (6.5-8.0)
[2023-12-13] MEDS: Milk of Magnesia 30 ML ORAL.SUSP PO (11:20)
[2023-12-13 13:25] LABS: Ammonia 77 umol/L (13-55)
--- NOTE | 2023-12-13 14:07 | PC.NURSE ---
Patient with elevated creatinine, seen by Joselin Del Toro NP. Bladder scan ordered. Patient unable to void prior to bladder scan but was then incontinent a large amount of urine just before lunch with care. Bladder scan was 391cc. Straight cath ordered. Straight cath completed at 1340 with 300 cc of cloudy pale yellow urine obtained. Patient tolerated the procedure well and specimens were brought to the lab. labs drawn prior to bladder scan and creatinine is slightly better. PO fluids encouraged and taken well. Mucous membranes are moist and skin turgor is good.
[2023-12-13 14:30] LABS: Appearance Urine Cloudy; Color Urine Yellow; Glucose Urine UA Negative (Negative); Leukocyte Esterase Urine Moderate (2+) (Negative); Nitrite Urine Negative (Negative); PH 6.5 (5.0-9.0); UMIC TRIGGER UA YES; Urine Blood Trace (Negative); Urine Ketones Trace mg/dL (Negative); Urine Protein 30 (1+) mg/dL (Neg-Trace)
[2023-12-13 14:32] LABS: Bacteria Urine 4+ (None Seen); Hyaline Casts Urine 0-2 /LPF (0-2); RBC Urine 0-2 /HPF (0-2); Squamous Epithelial Cell Urine 0-2 /HPF (0-2); WBC Urine >50 /HPF (0-5)
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
[2023-12-13 20:00] VITALS: BP 157/72; PULSE 58; RESP 18; TEMP 36.1; O2SAT 95
[2023-12-13] MEDS: Mirtazapine 30 MG TABLET PO (21:17)
[2023-12-13] MEDS: Atorvastatin Calcium 20 MG TABLET PO (21:17)
[2023-12-13] MEDS: Tamsulosin HCL 0.4 MG CAPSULE PO (21:18)
[2023-12-13] MEDS: OLANZapine 2.5 MG TABLET PO (21:18)
[2023-12-14] MEDS: OLANZapine 2.5 MG TABLET PO (01:16)
[2023-12-14] MEDS: OLANZapine ODT 10 MG TAB.RAPDIS TRANSLINGU ×2 (04:04→23:47)
[2023-12-14 08:11] VITALS: BP 149/87; PULSE 82; RESP 18; TEMP 36.2; O2SAT 94
[2023-12-14] MEDS: Divalproex Sodium Sprinkles 125 MG CAP.DR.SPR 500 MG PO (08:16)
[2023-12-14] MEDS: amLODIPine Besylate 10 MG TABLET PO (08:17)
[2023-12-14] MEDS: Aspirin 81 MG TAB.CHEW PO (08:18)
[2023-12-14] MEDS: Metoprolol Succinate ER 25 MG TAB.ER.24H PO (08:18)
[2023-12-14] MEDS: Clopidogrel Bisulfate 75 MG TABLET PO (08:19)
[2023-12-14] MEDS: Finasteride 5 MG TABLET PO (08:23)
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
[2023-12-14] MEDS: cefuroxime axetiL 250 MG TABLET PO ×2 (09:32→21:02)
[2023-12-14] MEDS: Lactulose 20 GM/30 ML SOLUTION PO ×2 (09:34→21:03)
--- NOTE | 2023-12-14 13:38 | MHC.CLN ---
F/U DIET=REGULAR, SAFETY TRAY. ENSURE BID TO PROVIDE ADDITIONAL NUTRITION. SUPPLEMENT PROVIDES 700 KCALS, 40 G PROTEIN. UNDER WEIGHT FOR HEIGHT, 89% IBW. INTAKE VARIABLE. ATE 40% AT BREAKFAST TODAY AND BITES AT LUNCH. CONTINUE CURRENT DIET AND SUPPLEMENT. RD TO FOLLOW UP WEEKLY.
[2023-12-14 17:05] LABS: Ammonia 24 umol/L (13-55)
--- NOTE | 2023-12-14 18:06 | PM.UROCN ---
History of Present Illness Consult details Consult date: 12/14/23 Narrative: CC: Incomplete bladder emptying 83-year-old male Prior history mood disorder, seizure disorder, BPH resides at [facility] Referred to emergency department for altered mental status Has found to have incomplete emptying 300 cc residual Straight catheterization performed Recommend optimization of prostate therapy. On finasteride and tamsulosin. Add bethanechol 25 mg p.o. t.i.d. which will try to address anticholinergic side effects Review of Systems Constitutional: Constitutional: Reports as per HPI and Reports no additional constitutional complaints Cardiovascular: Cardiovascular: Reports as per HPI and Reports no additional cardiovascular complaints Respiratory: Respiratory: Reports as per HPI and Reports no additional respiratory complaints Gastrointestinal: Gastrointestinal: Reports as per HPI and Reports no additional gastrointestinal complaints Genitourinary: Genitourinary: Reports as per HPI Musculoskeletal: Musculoskeletal: Reports no additional musculoskeletal complaints and Reports as per HPI Neurologic: Reports system reviewed and no additional complaints, except as documented and Reports as per HPI PMF Past Medical History Medical History BPH (benign prostatic hyperplasia) Mixed hyperlipidemia Hypertension Mood disorder Seizure disorder Social History Social History Household Members: Spouse Household Members Other:: 2 Housing: House Do you presently have visiting nurse or other home services: No Unable to assess alcohol history related to: Unknown Comment: 1:1 Patient Tobacco Use Status: Never used Tobacco Use of substances other than those prescribed or required for medical reasons: Unable to respond Last Used Substance: Unknown Currently Displaying Signs/Symptoms of Drug Intoxication Withdrawal: No Spiritual Healthcare Practices: unable to respond Hinduism Healthcare Practices: unable to respond Cultural Healthcare Practices: unable to respond Advance Directives: No Advance Directives Information Provided: No Do you have thoughts of harming others: None Do you have a plan to hurt others: No Plan Recently lost weight without trying: Unsure Eating poorly because of decreased appetite: No Nutrition Risks: No Nutritional Risk Poor oral hygiene: No service: No Sexual orientation: Straight/Heterosexual Meds Allergies Allergy/AdvReac Type Severity Reaction Status Date / Time No Known Allergies Allergy Verified 12/06/23 18:16 Active Medications: Current Medications Acetaminophen (Acetaminophen 325 Mg Tablet) 650 mg PO Q6H PRN PRN Reason: Headache/Pain Mild Scale (1-3) Al Hydroxide/Mg Hydroxide (Magnesium Hydrox/Alum Hydrox 30 Ml Oral.Susp) 30 ml PO Q6H PRN PRN Reason: Heartburn/Nausea Amlodipine Besylate (Amlodipine Besylate 10 Mg Tablet) 10 mg PO DAILY [facility]; Protocol Last Admin: 12/14/23 08:17 Dose: 10 mg Aspirin (Aspirin 81 Mg Tab.Chew) 81 mg PO DAILY [facility] Last Admin: 12/14/23 08:18 Dose: 81 mg Atorvastatin Calcium (Atorvastatin Calcium 20 Mg Tablet) 20 mg PO BEDTIME [facility] Last Admin: 12/13/23 21:17 Dose: 20 mg Bethanechol Chloride (Bethanechol Chloride 25 Mg Tablet) 25 mg PO TID [facility] Cefuroxime Axetil (Cefuroxime Axetil 250 Mg Tablet) 250 mg PO BID [facility] Stop: 12/20/23 21:01 Last Admin: 12/14/23 09:32 Dose: 250 mg Clopidogrel Bisulfate (Clopidogrel Bisulfate 75 Mg Tablet) 75 mg PO DAILY [facility] Last Admin: 12/14/23 08:19 Dose: 75 mg Divalproex Sodium (Divalproex Sodium Sprinkles 125 Mg ) 500 mg PO BID [facility] Last Admin: 12/14/23 08:16 Dose: 500 mg Finasteride (Finasteride 5 Mg Tablet) 5 mg PO DAILY [facility] Last Admin: 12/14/23 08:23 Dose: 5 mg Lactulose (Lactulose 20 Gm/30 Ml Solution) 20 gm PO BID [facility] Last Admin: 12/14/23 09:34 Dose: 20 gm Magnesium Hydroxide (Milk Of Magnesia 30 Ml Oral.Susp) 30 ml PO DAILY PRN PRN Reason: Constipation Last Admin: 12/13/23 11:20 Dose: 30 ml Metoprolol Succinate (Metoprolol Succinate Er 25 Mg Tab.Er.24h) 25 mg PO DAILY [facility]; Protocol Last Admin: 12/14/23 08:18 Dose: 25 mg Mirtazapine (Mirtazapine 30 Mg Tablet) 30 mg PO BEDTIME [facility] Last Admin: 12/13/23 21:17 Dose: 30 mg Tamsulosin HCl (Tamsulosin Hcl 0.4 Mg Capsule) 0.4 mg PO BEDTIME [facility] Last Admin: 12/13/23 21:18 Dose: 0.4 mg Home Medications ?Medication ?Instructions ?Recorded ?Confirmed ?Last Taken ?Type amlodipine 10 mg tablet 10 mg PO DAILY 12/05/23 12/07/23 Unknown History atorvastatin 20 mg tablet 20 mg PO DAILY 12/05/23 12/07/23 Unknown History clopidogrel 75 mg tablet 75 mg PO DAILY 12/05/23 12/07/23 Unknown History docusate sodium 100 mg capsule 100 mg PO BEDTIME 12/05/23 12/07/23 Unknown History (Colace) escitalopram oxalate 5 mg tablet 5 mg PO DAILY 12/05/23 12/07/23 Unknown History (Lexapro) finasteride 5 mg tablet 5 mg PO DAILY 12/05/23 12/07/23 Unknown History metoprolol succinate 25 mg 25 mg PO DAILY 12/05/23 12/07/23 Unknown History tablet,extended release 24 hr mirtazapine 15 mg tablet (Remeron) 7.5 mg PO BEDTIME 12/05/23 12/07/23 Unknown History polyethylene glycol 3350 17 17 g PO BEDTIME 12/05/23 12/07/23 Unknown History gram/dose oral powder (Miralax) tamsulosin 0.4 mg capsule 0.4 mg PO DAILY 12/05/23 12/07/23 Unknown History venlafaxine 37.5 mg tablet 37.5 mg PO DAILY 12/05/23 12/07/23 Unknown History acetaminophen 325 mg tablet 650 mg PO Q6H PRN Pain (Scale 12/06/23 12/07/23 Unknown History Score 1-3) aspirin 81 mg chewable tablet 81 mg PO DAILY 12/06/23 12/07/23 Unknown History haloperidol 5 mg tablet 5 mg PO Q6H PRN Psychosis 12/06/23 12/07/23 Unknown History lactulose 20 gram/30 mL oral 20 g PO DAILY PRN Constipation 12/06/23 12/07/23 Unknown History solution magnesium hydroxide 400 mg/5 mL 30 ml PO DAILY PRN Constipation 12/06/23 12/07/23 Unknown History oral suspension (Milk of Magnesia) Physical Exam Vital Signs: Vital Signs: Last Vital Signs Temp 97.1 F 12/14/23 08:11 Pulse 82 12/14/23 08:11 Resp 18 12/14/23 08:11 BP 149/87 H 12/14/23 08:11 Pulse Ox 94 12/14/23 08:11 O2 Del Method Room Air 12/14/23 08:11 BMI result Body Mass Index 20.8 Const: General: cooperative, healthy appearing, comfortable and no acute distress Orientation/consciousness: patient oriented x3 HEENT: Face and sinus: Yes normal facial exam Mouth: moist mucous membranes Neck: Neck: Yes normal visual inspection, Yes full ROM and Yes trachea midline Chest: Chest palpation & inspection: normal inspection of the chest Resp: Effort & Inspection: normal respiratory effort, able to speak in complete sentences and no respiratory distress GI: Inspection: Yes normal to inspection Back/Spine/Pelvis: Cervical Spine: normal cervical lordosis Thoracic/Lumbar Spine: thoracic and lumbar spine normal to inspection Skin: General skin exam: no rashes or lesions noted Neuro: General: patient oriented x3, tone normal and moves all extremities Extrem: General: Yes normal to inspection and Yes capillary refill normal Results Labs 12/12/23 14:04 12/13/23 10:36 Labs: Urine 12/13/23 Range/Units 13:40 Urine Color Yellow Urine Appearance Cloudy Urine pH 6.5 (5.0-9.0) Ur Specific [place] 1.020 (1.005-1.025) Urine Protein 30 (1+) H (Neg-Trace) mg/dL Urine Glucose (UA) Negative (Negative) mg/dL All other labs normal. Assessment and Plan (1) BPH (benign prostatic hyperplasia): Status: Acute (2) Incomplete emptying of bladder due to benign prostatic hyperplasia: Status: Acute Plan Add bethanechol 25 mg p.o. t.i.d. May repeat PVR with bladder ultrasound Procedures Date of Service Date of Service: 12/14/23
--- NOTE | 2023-12-14 18:24 | PC.NURSE ---
Pt voided and had a BM in the bathroom at about 18:15.
[2023-12-14 20:00] VITALS: BP 107/96; PULSE 66; RESP 18; TEMP 36.6; O2SAT 96
[2023-12-14] MEDS: Atorvastatin Calcium 20 MG TABLET PO (21:02)
[2023-12-14] MEDS: Mirtazapine 30 MG TABLET PO (21:02)
[2023-12-14] MEDS: Bethanechol Chloride 25 MG TABLET PO (21:02)
[2023-12-14] MEDS: Tamsulosin HCL 0.4 MG CAPSULE PO (21:02)
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
--- NOTE | 2023-12-14 23:14 | PC.ADMIT ---
patient owns at night, he gets very agitated and aggressive, zyprexa zydis 10mg prn ordered by DOC
--- NOTE | 2023-12-15 | ECG_ITS ---
Test Reason : arrhtymia rule out Blood Pressure : / mmHG Vent. Rate : 076 BPM Atrial Rate : 076 BPM P-R Int : 172 ms QRS Dur : 096 ms QT Int : 396 ms P-R-T Axes : 054 -11 021 degrees QTc Int : 445 ms Sinus rhythm with frequent Premature ventricular complexes Moderate voltage criteria for LVH, may be normal variant ( R in aVL , Sokolow-Ray ) Nonspecific ST abnormality Abnormal ECG When compared with ECG of 05-DEC-2023 19:09, ST no longer depressed in Lateral leads T wave inversion now evident in Inferior leads Referred By: Lili Wright Electronically Signed By:LOLA GUERRA
[2023-12-15 06:00] VITALS: BP 173/106; PULSE 81; RESP 20; O2SAT 95
--- NOTE | 2023-12-15 06:32 | PC.NURSE ---
last night at 2100, patient straight cathed for 450ml for a bladder scan of 437ml, urine was bloody, hospialist notified, hospitalist recommended straight categorization BID. early in morning patient said he had to urinate but could not, at 0550 bladder scan of 501ml, hospitalist notified, patient straight cathed at 0550 per hospitalist, only blood flowed out, had trouble getting hold of hospitalist, tank builder supervisor notified, and rapid called, hospitalist advised dr barnett put in a adames, Dr. Barnett notified via [employer] text and phone call of situation, message read, patient remains on 1:[address] Barnett
[2023-12-15 07:47] LABS: Ammonia 18 umol/L (13-55)
[2023-12-15 07:50] LABS: Alanine Aminotransferase 26 U/L (0-40); Alkaline Phosphatase 90 U/L (39-117); Anion Gap 14 (12-20); Aspartate Amino Transferase 37 U/L (5-37); Bilirubin Total 0.5 mg/dL (0.0-1.0); Blood Urea Nitrogen 33 mg/dL (9-16); Calcium 9.7 mg/dL (8.4-10.2); Carbon Dioxide 30 mmol/L (22-29); Chloride 101 mmol/L (96-108); Estimated Glomerular Filt Rate > 60; Glucose Random 92 mg/dL (60-115); Potassium 3.9 mmol/L (3.3-5.1); Sodium 141 mmol/L (135-145); Total Protein 7.1 g/dL (6.5-8.0)
[2023-12-15 08:58] VITALS: BP 108/62; PULSE 95; RESP 15; TEMP 36.2; O2SAT 97
[2023-12-15] MEDS: Lactulose 20 GM/30 ML SOLUTION PO ×2 (09:11→20:32)
[2023-12-15] MEDS: Finasteride 5 MG TABLET PO (09:12)
[2023-12-15] MEDS: amLODIPine Besylate 10 MG TABLET PO (09:12)
[2023-12-15] MEDS: cefuroxime axetiL 250 MG TABLET PO ×2 (09:12→20:25)
[2023-12-15] MEDS: Aspirin 81 MG TAB.CHEW PO (09:12)
[2023-12-15] MEDS: Bethanechol Chloride 25 MG TABLET PO ×3 (09:12→20:25)
[2023-12-15] MEDS: Clopidogrel Bisulfate 75 MG TABLET PO (09:12)
[2023-12-15] MEDS: Metoprolol Succinate ER 25 MG TAB.ER.24H PO (09:12)
[2023-12-15 12:11] LABS: Ammonia 34 umol/L (13-55)
[2023-12-15] MEDS: 0.9 % Sodium Chloride 1,000 ML 999 ML IV (13:19)
[2023-12-15 13:31] LABS: Magnesium 2.2 mg/dL (1.6-2.6)
--- NOTE | 2023-12-15 13:50 | PM.EVENT ---
Event Note Date of Service: 12/15/23 Event Note: Notified by nursing that patient was having fluctuating pulse of 50-55, soft BP as low as 86/56, and questionable irregular rhythm. EKG was obtained which showed sinus rhythm with frequent PVCs, change from previous which showed occasional PVCs. Pt is asymptomatic. Denies chest pain/pressure, palpitations. No shortness a breath or difficulty breathing. Denies lightheadedness or dizziness. Labs reviewed and showed no electrolyte abnormalities, including potassium and magnesium WNL. Patient received 1 L IVF. Unable to get BP from automated reader. Manual BP checked and patient found to be 140/90. Would suggest using manual BP for now. Recheck after IVF. Consider cardiology consult for recommendations about EKG showing frequent PVCs. As patient has stable and asymptomatic, will sign off for now. Please re-consult if any acute issues arise. Time Spent With Patient Time: Total time managing care of this patient today ____ minutes.
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
[2023-12-15 20:00] VITALS: BP 161/91; PULSE 85; RESP 18; TEMP 36.6; O2SAT 94
[2023-12-15] MEDS: Mirtazapine 30 MG TABLET PO (20:25)
[2023-12-15] MEDS: Divalproex Sodium Sprinkles 125 MG CAP.DR.SPR PO (20:25)
[2023-12-15] MEDS: Tamsulosin HCL 0.4 MG CAPSULE PO (20:25)
[2023-12-15] MEDS: Atorvastatin Calcium 20 MG TABLET PO (20:25)
[2023-12-15] MEDS: OLANZapine ODT 10 MG TAB.RAPDIS TRANSLINGU (21:45)
[2023-12-15] MEDS: OLANZapine ODT 10 MG TAB.RAPDIS 5 MG TRANSLINGU (22:49)
[2023-12-16 08:21] VITALS: BP 127/66; PULSE 70; RESP 15; TEMP 36.7; O2SAT 92
[2023-12-16] MEDS: Lactulose 20 GM/30 ML SOLUTION PO (08:25)
[2023-12-16] MEDS: Clopidogrel Bisulfate 75 MG TABLET PO (08:25)
[2023-12-16] MEDS: amLODIPine Besylate 10 MG TABLET PO (08:25)
[2023-12-16] MEDS: Metoprolol Succinate ER 25 MG TAB.ER.24H PO (08:25)
[2023-12-16] MEDS: Bethanechol Chloride 25 MG TABLET PO ×3 (08:25→20:26)
[2023-12-16] MEDS: Aspirin 81 MG TAB.CHEW PO (08:25)
[2023-12-16] MEDS: Finasteride 5 MG TABLET PO (08:26)
[2023-12-16 10:04] LABS: MANUAL DIFF FLAG NO
[2023-12-16 10:06] LABS: Basophils Percent Auto 0.5 % (0-2); Eosinophils Absolute Auto 0.3 X10*3/uL (0.0-0.4); Hematocrit 36.1 % (42.0-52.0); Hemoglobin 12.6 g/dl (14.0-18.0); Imm Gran Abs Auto 0.05 X10*3/uL (0.00-0.03); Imm Gran Pct Auto 0.8 % (0.0-0.4); Lymphocytes Percent Auto 15.1 % (20-40); Mean Corpuscular HGB Conc 34.9 g/dl (31.0-36.0); Mean Corpuscular Hemoglobin 33.8 pg (27.0-33.0); Mean Corpuscular Volume 96.8 fL (80.0-98.0); Mean Platelet Volume 10.3 fL (9.4-12.4); Monocytes Absolute Auto 0.7 X10*3/uL (0.1-1.2); Monocytes Percent Auto 10.1 % (2-11); Neutrophils Absolute Auto 4.6 x10*3/uL (2.0-8.3); Neutrophils Percent Auto 69.5 % (45-73); Platelet Count 188 X10*3/uL (160-400); Red Blood Count 3.73 X10*6/uL (4.60-5.80); Red Cell Distribution Width 13.2 % (11.0-16.0); White Blood Count 6.5 X10*3/uL (4.8-10.8)
--- NOTE | 2023-12-16 10:09 | PC.NURSE ---
This RN reached out to Dr. Lili Stanford about pulling this pt.'s IV access which was given on 12/15/2023. She requested that this copywriter inquire about this with hospitalist oncology research rn. This copywriter texted Dr. Hackett who stated to pull the access. IV pulled without incident. Site looks free from s&s of infection.
[2023-12-16] MEDS: cefuroxime axetiL 250 MG TABLET PO ×2 (10:32→20:27)
[2023-12-16 10:33] LABS: Valproate 24.8 mcg/mL (50.0-100.0)
[2023-12-16 10:36] LABS: Alanine Aminotransferase 24 U/L (0-40); Albumin Level 3.3 g/dL (3.5-5.0); Alkaline Phosphatase 76 U/L (39-117); Anion Gap 11 (12-20); Aspartate Amino Transferase 30 U/L (5-37); Bilirubin Total 0.5 mg/dL (0.0-1.0); Blood Urea Nitrogen 30 mg/dL (9-16); Calcium 8.6 mg/dL (8.4-10.2); Carbon Dioxide 29 mmol/L (22-29); Chloride 103 mmol/L (96-108); Creatinine Clr Calc Pharmacy 40.1; Estimated Glomerular Filt Rate 59; Glucose Random 98 mg/dL (60-115); Potassium 3.9 mmol/L (3.3-5.1); Sodium 139 mmol/L (135-145); Total Protein 5.7 g/dL (6.5-8.0)
--- NOTE | 2023-12-16 10:48 | PC.NURSE ---
This investigative writer was giving pt lactulose and it sounded like he started to aspirate a little. Pt O2 fluctuating between 91%-95% right now. Pt able to follow directions to clear his airway. This investigative writer texted Dr. Lili Montenegro to request a swallow evaluation-answer pending.
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
[2023-12-16] MEDS: Acetaminophen 325 MG TABLET 650 MG PO (14:19)
[2023-12-16] MEDS: OLANZapine ODT 10 MG TAB.RAPDIS TRANSLINGU ×2 (14:29→17:49)
--- NOTE | 2023-12-16 17:29 | PC.NURSE ---
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
[2023-12-16 18:46] LABS: Ammonia 27 umol/L (13-55)
[2023-12-16 20:00] VITALS: BP 124/85; PULSE 64; RESP 20; TEMP 37.2; O2SAT 96
[2023-12-16] MEDS: OLANZapine ODT 10 MG TAB.RAPDIS 5 MG TRANSLINGU (20:25)
[2023-12-16] MEDS: lamoTRIgine 25 MG TABLET PO (20:27)
[2023-12-16] MEDS: Tamsulosin HCL 0.4 MG CAPSULE PO (20:27)
[2023-12-16] MEDS: Mirtazapine 30 MG TABLET PO (20:28)
[2023-12-16] MEDS: Atorvastatin Calcium 20 MG TABLET PO (20:28)
[2023-12-17 08:35] VITALS: BP 140/79; PULSE 76; RESP 16; TEMP 36.4; O2SAT 94
[2023-12-17] MEDS: Lactulose 20 GM/30 ML SOLUTION PO ×2 (08:36→23:16)
[2023-12-17] MEDS: Finasteride 5 MG TABLET PO (08:36)
[2023-12-17] MEDS: Aspirin 81 MG TAB.CHEW PO (08:38)
[2023-12-17] MEDS: amLODIPine Besylate 10 MG TABLET PO (08:38)
[2023-12-17] MEDS: Clopidogrel Bisulfate 75 MG TABLET PO (08:38)
[2023-12-17] MEDS: cefuroxime axetiL 250 MG TABLET PO ×2 (08:39→23:16)
[2023-12-17] MEDS: Bethanechol Chloride 25 MG TABLET PO ×3 (08:39→23:15)
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
--- NOTE | 2023-12-17 12:19 | MHC.SLORD ---
Speech Language Pathology Order Status: Pt cachetic on arrival. Per RN, attempted to feed breakfast and lunch result in Pt spitting out food. Please contact [employer] if Pt is more alert today, otherwise, will reattempt tomorrow.
[2023-12-17] MEDS: OLANZapine ODT 10 MG TAB.RAPDIS 5 MG TRANSLINGU (16:22)
[2023-12-17] MEDS: OLANZapine ODT 10 MG TAB.RAPDIS TRANSLINGU (17:26)
[2023-12-17 20:00] VITALS: BP 175/95; PULSE 91; RESP 18; TEMP 36.1; O2SAT 96
[2023-12-17] MEDS: Atorvastatin Calcium 20 MG TABLET PO (23:15)
[2023-12-17] MEDS: Mirtazapine 30 MG TABLET PO (23:15)
[2023-12-17] MEDS: lamoTRIgine 25 MG TABLET PO (23:15)
[2023-12-17] MEDS: Tamsulosin HCL 0.4 MG CAPSULE PO (23:16)
[2023-12-18] MEDS: OLANZapine ODT 10 MG TAB.RAPDIS 5 MG TRANSLINGU ×2 (01:21→11:32)
[2023-12-18 08:16] VITALS: BP 145/91; PULSE 96; RESP 18; TEMP 38.2; O2SAT 93
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
--- NOTE | 2023-12-18 08:44 | P.EN_ITS ---
Event Note Date of Service: 12/18/23 Event Note: Consult placed to hospitalist service for evaluation of fevers and delerium. Per nurse, pt has had multiple witnessed aspiration events dating back at least several days. Primarily with thin liquids but now also with thickened liquids has been coughing. UA not indicative of infection, CXR unremarkable. Negative for covid/flu/rsv. Pt seen at bedside, non verbal, mumbling, sitting upright in bed, some body tremors. Tmax 100.9, vitals otherwise stable, no hypoxia. No leukocytosis, no sepsis. Pt made NPO. Not participating in SYSTEM SOFTWARE PROGRAMMER exam. Unfortuantely as a result, cannot give PO abx. Could consider IM unasyn but ultimately pt would need maintenance fluids given NPO status. As a result will be trasnferred to med/surg for IV abx and IV fluids awaiting SYSTEM SOFTWARE PROGRAMMER eval and ongoing monitoring of mentation. Discussed with psychiatry Time Spent With Patient Time: Total time managing care of this patient today ____ minutes.
[2023-12-18] MEDS: Aspirin 81 MG TAB.CHEW PO (10:02)
[2023-12-18] MEDS: Clopidogrel Bisulfate 75 MG TABLET PO (10:02)
[2023-12-18 10:03] VITALS: BP 146/88
[2023-12-18] MEDS: Bethanechol Chloride 25 MG TABLET PO (10:03)
[2023-12-18] MEDS: amLODIPine Besylate 10 MG TABLET PO (10:03)
[2023-12-18] MEDS: cefuroxime axetiL 250 MG TABLET PO (10:04)
[2023-12-18] MEDS: Finasteride 5 MG TABLET PO (10:04)
[2023-12-18] MEDS: Lactulose 20 GM/30 ML SOLUTION PO (10:04)
[2023-12-18 10:16] LABS: MANUAL DIFF FLAG NO
[2023-12-18 10:20] LABS: Basophils Absolute Auto 0.1 X10*3/uL (0.0-0.2); Basophils Percent Auto 0.6 % (0-2); Eosinophils Absolute Auto 0.1 X10*3/uL (0.0-0.4); Eosinophils Percent Auto 0.9 % (0-4); Hematocrit 37.4 % (42.0-52.0); Imm Gran Abs Auto 0.05 X10*3/uL (0.00-0.03); Imm Gran Pct Auto 0.6 % (0.0-0.4); Lymphocytes Absolute Auto 0.6 X10*3/uL (1.2-4.9); Lymphocytes Percent Auto 6.6 % (20-40); Mean Corpuscular HGB Conc 34.8 g/dl (31.0-36.0); Mean Corpuscular Hemoglobin 33.4 pg (27.0-33.0); Mean Corpuscular Volume 96.1 fL (80.0-98.0); Mean Platelet Volume 10.7 fL (9.4-12.4); Monocytes Percent Auto 11.8 % (2-11); Neutrophils Absolute Auto 6.7 x10*3/uL (2.0-8.3); Neutrophils Percent Auto 79.5 % (45-73); Platelet Count 202 X10*3/uL (160-400); Red Blood Count 3.89 X10*6/uL (4.60-5.80); Red Cell Distribution Width 13.1 % (11.0-16.0); White Blood Count 8.4 X10*3/uL (4.8-10.8)
[2023-12-18 10:36] LABS: Alanine Aminotransferase 21 U/L (0-40); Albumin Level 3.5 g/dL (3.5-5.0); Alkaline Phosphatase 79 U/L (39-117); Anion Gap 10 (12-20); Aspartate Amino Transferase 24 U/L (5-37); Bilirubin Total 0.4 mg/dL (0.0-1.0); Blood Urea Nitrogen 26 mg/dL (9-16); Calcium 8.9 mg/dL (8.4-10.2); Carbon Dioxide 29 mmol/L (22-29); Chloride 105 mmol/L (96-108); Creatinine Clr Calc Pharmacy 41.5; Estimated Glomerular Filt Rate > 60; Glucose Random 167 mg/dL (60-115); Potassium 3.8 mmol/L (3.3-5.1); Sodium 140 mmol/L (135-145); Total Protein 6.1 g/dL (6.5-8.0)
[2023-12-18 11:17] LABS: Appearance Urine Clear; Color Urine Yellow; Glucose Urine UA Negative (Negative); Leukocyte Esterase Urine Trace (Negative); Nitrite Urine Negative (Negative); PH 5.5 (5.0-9.0); UMIC TRIGGER UACC YES; Urine Blood Trace (Negative); Urine Ketones Trace mg/dL (Negative); Urine Protein 30 (1+) mg/dL (Neg-Trace)
[2023-12-18 11:20] LABS: Bacteria Urine None Seen (None Seen); RBC Urine 0-2 /HPF (0-2); Squamous Epithelial Cell Urine 0-2 /HPF (0-2); WBC Urine 0-5 /HPF (0-5)
[2023-12-18 12:00] LABS: Influenza A PCR NEGATIVE (Negative); Influenza B PCR NEGATIVE (Negative); Resp Syncy Virus RNA Qual PCR NEGATIVE (Negative); SARS COV2 PCR INHOUSE NEGATIVE (Negative)
[2023-12-18 13:16] VITALS: TEMP 38.3
--- NOTE | 2023-12-18 16:34 | MHC.SPEECHCO ---
DARKLIGHT INSPECTOR more awake today, however refusing PO by clenching his lips shut, turning his head away, and batting items away with his hands. DARKLIGHT INSPECTOR will continue to follow.
--- NOTE | 2023-12-18 17:28 | P.DS_ITS ---
DS: Providers Provider Date of Service: 12/18/23 Date of admission: 12/07/23 16:47 Date of discharge: 12/18/23 Primary care physician: Unknown Physician Consults: 12/08/23 16:06 Consult to Hospitalist Routine Comment: Consulting Provider: Hospitalist Reason For Exam: HTN mgmt 12/13/23 10:19 Consult to Hospitalist Routine Comment: Consulting Provider: Hospitalist Reason For Exam: GERMAN 12/13/23 12:46 Consult to Urology Routine Consulting Provider: [facility] Reason for consultation: urine retention Has provider been notified: Yes 12/18/23 08:38 Consult to Hospitalist Routine Comment: Consulting Provider: Hospitalist Reason For Exam: feebrile, delirious DS: Diagnosis Discharge Diagnosis (1) Major neurocognitive disorder due to another medical condition with behavioral disturbance: Status: Acute DS: Medications Discharge Medications Home Medications: Home Medications ?Medication ?Instructions ?Recorded ?Confirmed amlodipine 10 mg tablet 10 mg PO DAILY 12/05/23 12/07/23 atorvastatin 20 mg tablet 20 mg PO DAILY 12/05/23 12/07/23 clopidogrel 75 mg tablet 75 mg PO DAILY 12/05/23 12/07/23 docusate sodium 100 mg capsule 100 mg PO BEDTIME 12/05/23 12/07/23 (Colace) escitalopram oxalate 5 mg tablet 5 mg PO DAILY 12/05/23 12/07/23 (Lexapro) finasteride 5 mg tablet 5 mg PO DAILY 12/05/23 12/07/23 metoprolol succinate 25 mg 25 mg PO DAILY 12/05/23 12/07/23 tablet,extended release 24 hr mirtazapine 15 mg tablet (Remeron) 7.5 mg PO BEDTIME 12/05/23 12/07/23 polyethylene glycol 3350 17 17 g PO BEDTIME 12/05/23 12/07/23 gram/dose oral powder (Miralax) tamsulosin 0.4 mg capsule 0.4 mg PO DAILY 12/05/23 12/07/23 venlafaxine 37.5 mg tablet 37.5 mg PO DAILY 12/05/23 12/07/23 acetaminophen 325 mg tablet 650 mg PO Q6H PRN Pain (Scale 12/06/23 12/07/23 Score 1-3) aspirin 81 mg chewable tablet 81 mg PO DAILY 12/06/23 12/07/23 haloperidol 5 mg tablet 5 mg PO Q6H PRN Psychosis 12/06/23 12/07/23 lactulose 20 gram/30 mL oral 20 g PO DAILY PRN Constipation 12/06/23 12/07/23 solution magnesium hydroxide 400 mg/5 mL 30 ml PO DAILY PRN Constipation 12/06/23 12/07/23 oral suspension (Milk of Magnesia) Previous Rx's ?Medication ?Instructions ?Recorded divalproex 500 mg tablet,delayed 500 mg PO BID #1 tab 12/07/23 release Mental Status Exam Mental Status Exam Patient Appearance: Appropriate Patient Orientation: Person Level of Consciousness: Disoriented Patient Behavior: Passive Mood Description: Calm Affect Description: Flat Patient Cognition Impaired: Yes Ability to Follow Directions: Poor Speech Pattern: No Speech Hallucinations: None Delusions: Ideas of Reference Thought Process: Distracted Thought Content: positive for Loose Associations and positive for Thought Blocking Judgement: Poor Data Data Completed and Pending Completed studies during hospitalization [Text1]: 12/12/23 12/13/23 12/13/23 14:04 07:58 10:36 WBC 6.3 RBC 3.96 L Hgb 13.4 L Hct 38.6 L MCV 97.5 MCH 33.8 H MCHC 34.7 RDW 13.1 Plt Count 190 MPV 10.3 Immature Gran % (Auto) Neut % (Auto) Lymph % (Auto) [place] % (Auto) Eos % (Auto) Baso % (Auto) Lymph # (Auto) [place] # (Auto) Eos # (Auto) Baso # (Auto) Abs Immat Gran (auto) Absolute Neuts (auto) Absolute Nucleated RBC 0.000 Nucleated RBC % (auto) 0.0 Sodium 142 143 Potassium 3.9 3.6 Chloride 107 103 Carbon Dioxide 26 33 H Anion Gap 13 11 L BUN 43 H 29 H Creatinine 1.42 H 1.04 Estim Creat Clear Calc 30.6 41.7 Estimated GFR 47 > 60 Random Glucose 156 H 102 Calcium 9.1 9.3 Magnesium Total Bilirubin 0.2 0.3 AST 23 39 H ALT 16 20 Alkaline Phosphatase 80 82 Ammonia Total Protein 6.2 L 6.4 L Albumin 3.5 3.6 Urine Color Urine Appearance Urine pH Ur Specific [place] Urine Protein Urine Glucose (UA) Urine Ketones Urine Blood Urine Nitrite Ur Leukocyte Esterase Urine RBC Urine WBC Ur Squamous Epith Cells Urine Bacteria Hyaline Casts Valproic Acid 83.9 Influenza Type A (PCR) Influenza Type B (PCR) RSV RNA Qual (PCR) SARS-CoV-2 RNA (RT-PCR) 12/13/23 12/13/23 12/14/23 13:11 13:40 16:53 WBC RBC Hgb Hct MCV MCH MCHC RDW Plt Count MPV Immature Gran % (Auto) Neut % (Auto) Lymph % (Auto) [place] % (Auto) Eos % (Auto) Baso % (Auto) Lymph # (Auto) [place] # (Auto) Eos # (Auto) Baso # (Auto) Abs Immat Gran (auto) Absolute Neuts (auto) Absolute Nucleated RBC Nucleated RBC % (auto) Sodium Potassium Chloride Carbon Dioxide Anion Gap BUN Creatinine Estim Creat Clear Calc Estimated GFR Random Glucose Calcium Magnesium Total Bilirubin AST ALT Alkaline Phosphatase Ammonia 77 H 24 Total Protein Albumin Urine Color Yellow Urine Appearance Cloudy Urine pH 6.[address] [place] [address] [place] 1.020 Urine Protein 30 (1+) H Urine Glucose (UA) Negative Urine Ketones Trace Urine Blood Trace H Urine Nitrite Negative Ur Leukocyte Esterase Moderate (2+) H Urine RBC 0-2 Urine WBC >50 H Ur Squamous Epith Cells 0-2 Urine Bacteria 4+ Hyaline Casts 0-2 Valproic Acid Influenza Type A (PCR) Influenza Type B (PCR) RSV RNA Qual (PCR) SARS-CoV-2 RNA (RT-PCR) 12/15/23 12/15/23 12/16/23 07:15 12:00 09:55 WBC RBC Hgb Hct MCV MCH MCHC RDW Plt Count MPV Immature Gran % (Auto) Neut % (Auto) Lymph % (Auto) [place] % (Auto) Eos % (Auto) Baso % (Auto) Lymph # (Auto) [place] # (Auto) Eos # (Auto) Baso # (Auto) Abs Immat Gran (auto) Absolute Neuts (auto) Absolute Nucleated RBC Nucleated RBC % (auto) Sodium 141 Potassium 3.9 Chloride 101 Carbon Dioxide 30 H Anion Gap 14 BUN 33 H Creatinine 1.10 Estim Creat Clear Calc 43.0 Estimated GFR > 60 Random Glucose 92 Calcium 9.7 Magnesium 2.2 Total Bilirubin 0.5 AST 37 ALT 26 Alkaline Phosphatase 90 Ammonia 18 34 Total Protein 7.1 Albumin 4.0 Urine Color Urine Appearance Urine pH Ur Specific [place] Urine Protein Urine Glucose (UA) Urine Ketones Urine Blood Urine Nitrite Ur Leukocyte Esterase Urine RBC Urine WBC Ur Squamous Epith Cells Urine Bacteria Hyaline Casts Valproic Acid 24.8 L Influenza Type A (PCR) Influenza Type B (PCR) RSV RNA Qual (PCR) SARS-CoV-2 RNA (RT-PCR) 12/16/23 12/16/23 12/18/23 09:56 18:34 10:01 WBC 6.5 8.4 RBC 3.73 L 3.89 L Hgb 12.6 L 13.0 L Hct 36.1 L 37.4 L MCV 96.8 96.1 MCH 33.8 H 33.4 H MCHC 34.9 34.8 RDW 13.2 13.1 Plt Count 188 202 MPV 10.3 10.7 Immature Gran % (Auto) 0.8 H 0.6 H Neut % (Auto) 69.5 79.5 H Lymph % (Auto) 15.1 L 6.6 L [place] % (Auto) 10.1 11.8 H Eos % (Auto) 4.0 0.9 Baso % (Auto) 0.5 0.6 Lymph # (Auto) 1.0 L 0.6 L [place] # (Auto) 0.7 1.0 Eos # (Auto) 0.3 0.1 Baso # (Auto) 0.0 0.1 Abs Immat Gran (auto) 0.05 H 0.05 H Absolute Neuts (auto) 4.6 6.7 Absolute Nucleated RBC 0.000 0.000 Nucleated RBC % (auto) 0.0 0.0 Sodium 139 140 Potassium 3.9 3.8 Chloride 103 105 Carbon Dioxide 29 29 Anion Gap 11 L 10 L BUN 30 H 26 H Creatinine 1.18 1.14 Estim Creat Clear Calc 40.1 41.5 Estimated GFR 59 > 60 Random Glucose 98 167 H Calcium 8.6 D 8.9 Magnesium Total Bilirubin 0.5 0.4 AST 30 24 ALT 24 21 Alkaline Phosphatase 76 79 Ammonia 27 Total Protein 5.7 L 6.1 L Albumin 3.3 L 3.5 Urine Color Urine Appearance Urine pH Ur Specific [place] Urine Protein Urine Glucose (UA) Urine Ketones Urine Blood Urine Nitrite Ur Leukocyte Esterase Urine RBC Urine WBC Ur Squamous Epith Cells Urine Bacteria Hyaline Casts Valproic Acid Influenza Type A (PCR) Influenza Type B (PCR) RSV RNA Qual (PCR) SARS-CoV-2 RNA (RT-PCR) 12/18/23 12/18/23 10:45 11:00 WBC RBC Hgb Hct MCV MCH MCHC RDW Plt Count MPV Immature Gran % (Auto) Neut % (Auto) Lymph % (Auto) [place] % (Auto) Eos % (Auto) Baso % (Auto) Lymph # (Auto) [place] # (Auto) Eos # (Auto) Baso # (Auto) Abs Immat Gran (auto) Absolute Neuts (auto) Absolute Nucleated RBC Nucleated RBC % (auto) Sodium Potassium Chloride Carbon Dioxide Anion Gap BUN Creatinine Estim Creat Clear Calc Estimated GFR Random Glucose Calcium Magnesium Total Bilirubin AST ALT Alkaline Phosphatase Ammonia Total Protein Albumin Urine Color Yellow Urine Appearance Clear Urine pH 5.[address] [place] [address] [place] 1.020 Urine Protein 30 (1+) H Urine Glucose (UA) Negative Urine Ketones Trace Urine Blood Trace H Urine Nitrite Negative Ur Leukocyte Esterase Trace H Urine RBC 0-2 Urine WBC 0-5 Ur Squamous Epith Cells 0-2 Urine Bacteria None Seen Hyaline Casts 3-5 Valproic Acid Influenza Type A (PCR) NEGATIVE Influenza Type B (PCR) NEGATIVE RSV RNA Qual (PCR) NEGATIVE SARS-CoV-2 RNA (RT-PCR) NEGATIVE Imaging Diagnostic Imaging Impressions Head CT 12/07/23 23:03 IMPRESSION: 1. No acute intracranial pathology. 2. Mild cerebral atrophy and moderate chronic white matter microangiopathy. 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 Hip X-Ray 12/07/23 23:11 IMPRESSION: 1. No acute fracture or malalignment identified in the pelvis and hips. 2. Mild osteoarthritis in the hips. 3. 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 Hip X-Ray 12/07/23 23:11 IMPRESSION: 1. No acute fracture or malalignment identified in the pelvis and hips. 2. Mild osteoarthritis in the hips. 3. 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 Chest X-Ray 12/16/23 12:00 IMPRESSION: 1. Mild bibasilar streaky opacities, likely subsegmental atelectasis. 2. 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 3. 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 Electronically signed by: Lashonda Ballesteros MD 12/16/2023 05:43 PM EDT Chest X-Ray 12/18/23 08:19 IMPRESSION: No acute intrathoracic disease. Electronically signed by: You Jiménez MD 12/18/2023 10:35 AM EDT RP DS: Summary Hospital Course Hospital Course: The patient is an elderly male with dmentia, admitted for behavioral disturbances. While in the unit, the nursing staff noticed changes on pulse and ekg was done. Later on, hospitalist decided to transfer to medicine for further stabilization. Time spent discussing smoking cessation with patient: 3 to 10 minutes Status at Discharge Cognitive/behavioral status at discharge: Impaired Overall status at discharge: patient is not back to baseline Time Spent with Patient Time attestation: Total time managing care of this patient today _20___ minutes. Time spent: Less than 30 minutes Discharge Plan Discharge Anticipated Discharge Date/Time: 12/18/23 17:30 Patient Disposition: Xfer Acute Care Hospital Discharge Diagnosis: Dementia Delirium Referrals: Physician,Unknown J [Primary Care Provider] - 1 Week Discharge Medications: New acetaminophen 325 mg Tablet 650 mg PO Q6H PRN (Reason: Headache/Pain Mild Scale (1-3)) Qty: 30 0RF atorvastatin 20 mg Tablet 20 mg PO BEDTIME Qty: 30 0RF clopidogrel 75 mg Tablet 75 mg PO DAILY Qty: 30 0RF lamotrigine 25 mg Tablet 25 mg PO BEDTIME Qty: 30 0RF bethanechol chloride 25 mg Tablet 25 mg PO TID 30 Days Qty: 90 0RF magnesium hydroxide [Milk of Magnesia] 400 mg/5 mL Suspension 30 ml PO DAILY PRN (Reason: Constipation) 20 Days Qty: 20 0RF tamsulosin 0.4 mg Capsule 0.4 mg PO BEDTIME Qty: 30 0RF amlodipine 10 mg Tablet 10 mg PO DAILY Qty: 30 0RF Protocol: Hold for SBP< HOLD for SBP < : 90 mirtazapine 30 mg Tablet 30 mg PO BEDTIME Qty: 30 0RF olanzapine 10 mg Tablet,Disintegrating 10 mg translingual DAILY@1800 Qty: 20 0RF olanzapine 10 mg Tablet,Disintegrating 5 mg translingual BID PRN (Reason: agitation) Qty: 20 0RF aspirin 81 mg Tablet,Chewable 81 mg PO DAILY Qty: 20 0RF finasteride 5 mg Tablet 5 mg PO DAILY 30 Days Qty: 30 0RF MAG-AL 200-200 mg/5 mL Suspension 30 ml PO Q6H PRN (Reason: Heartburn/Nausea) 30 Days Qty: 99 0RF lactulose 20 gram/30 mL Solution 20 g PO BID Qty: 30 0RF Discontinued atorvastatin 20 mg tablet 20 mg PO DAILY clopidogrel 75 mg tablet 75 mg PO DAILY tamsulosin 0.4 mg capsule 0.4 mg PO DAILY amlodipine 10 mg tablet 10 mg PO DAILY venlafaxine 37.5 mg Tablet 37.5 mg PO DAILY docusate sodium [Colace] 100 mg Capsule 100 mg PO BEDTIME mirtazapine [Remeron] 15 mg Tablet 7.5 mg PO BEDTIME metoprolol succinate 25 mg tablet extended release 24 hr 25 mg PO DAILY polyethylene glycol 3350 [Miralax] 17 gram/dose Powder 17 g PO BEDTIME finasteride 5 mg tablet 5 mg PO DAILY escitalopram oxalate [Lexapro] 5 mg Tablet 5 mg PO DAILY acetaminophen 325 mg Tablet 650 mg PO Q6H PRN (Reason: Pain (Scale Score 1-3)) haloperidol 5 mg Tablet 5 mg PO Q6H PRN (Reason: Psychosis) magnesium hydroxide [Milk of Magnesia] 400 mg/5 mL Suspension 30 ml PO DAILY PRN (Reason: Constipation) aspirin 81 mg Tablet,Chewable 81 mg PO DAILY lactulose 20 gram/30 mL Solution 20 g PO DAILY PRN (Reason: Constipation ) divalproex 500 mg Tablet,Delayed Release (Dr/Ec) 500 mg PO BID Qty: 1 0RF Discharge Orders: Discharge Order (Routine); Ordered 12/18/23 Ordered By: Rock Carver Diet: Advance to usual diet Activity on Discharge: As tolerated Stand Alone Forms: Patient Portal Discharge page Print Language: Georgian Care Plan Goals: NOT ACHIEVED, TRANSFERRED TO MEDICINE Health Concerns: TRANSFERRED TO MED/SURG Plan of Treatment: TRANSFERRED TO MED/SURG Assessment: ELDERLY MALE WITH DEMENTIA ADMITTED FOR BEHAVIORAL DISTURBANCES TRANSFERRED TO MEDICINE DUE TO ACUTE DECOMPENSATION.
== END 2023-12-18 18:45 | disposition short-term general hospital (02) | DRG 57 ==
PROVIDERS: Physician Assistant; Psychiatry & Neurology Psychiatry; Student in an Organized Health Care Education/Training Program; Admitting Provider Social Worker; Visit Provider Social Worker
DX: G31.09 Other frontotemporal neurocognitive disorder (principal); R45.851 Suicidal ideations; F05 Delirium due to known physiological condition; F02.818 Dementia in other diseases classified elsewhere, unspecified severity, with other behavioral disturbance; N39.0 Urinary tract infection, site not specified; F09 Unspecified mental disorder due to known physiological condition; R45.850 Homicidal ideations; E86.0 Dehydration; I49.3 Ventricular premature depolarization; N40.1 Benign prostatic hyperplasia with lower urinary tract symptoms; R39.14 Feeling of incomplete bladder emptying; E78.2 Mixed hyperlipidemia; G40.909 Epilepsy, unspecified, not intractable, without status epilepticus; Z79.82 Long term (current) use of aspirin; Z79.02 Long term (current) use of antithrombotics/antiplatelets; Z79.899 Other long term (current) drug therapy
CPT/HCPCS: 0241U; 36415; 70450; 70496; 70498; 71045; 73502; 80048; 80053; 80061; 80143; 80164; 80177; 80179; 80307; 81001; 82140; 82607; 82746; 82947; 83036; 83605; 83735; 84443; 84484; 85014; 85018; 85025; 85027; 85610; 85730; 86592; 87086; 87088; 87389; 92950; 93005; 95816; 96372; 96374; 99221; 99285; C1758; J1650; J2060; Q9967; S9485

== ENCOUNTER → 2023-12-07 16:47 | Outpatient (BNV) | payer MEDICARE, OTHER, SELFPAY | PROVIDERS: Admitting Provider Social Worker; Visit Provider Urology | DX: N40.0 Benign prostatic hyperplasia without lower urinary tract symptoms (principal); N40.1 Benign prostatic hyperplasia with lower urinary tract symptoms; R33.9 Retention of urine, unspecified | CPT/HCPCS: 99222 ==

== ENCOUNTER → 2023-12-07 16:47 | Outpatient (BNV) | payer MEDICARE, OTHER, SELFPAY | PROVIDERS: Admitting Provider Social Worker; Visit Provider Psychiatry & Neurology Psychiatry | DX: F03.918 Unspecified dementia, unspecified severity, with other behavioral disturbance (principal) | CPT/HCPCS: 90792; 99231; 99232; 99238; 99499 ==

== ENCOUNTER 2023-12-18 18:31 | Inpatient (IN) | payer MEDICARE, OTHER, SELFPAY ==
--- NOTE | ~2023-12-18 | XR_ITS ---
EXAMINATION: XR CHEST CLINICAL INFORMATION: The liver COMPARISON: Chest x-ray December 18, 2023 TECHNIQUE: Frontal view of the chest was obtained. FINDINGS: Cardiac silhouette is again noted to be enlarged. The lungs are adequately aerated. Asymmetric elevation of right hemidiaphragm again noted. There is no gross lobar consolidation. No pleural effusion or pneumothorax. Chronic deformity of right posterior rib again demonstrated. XR/XR chest 1V IMPRESSION: Stable examination demonstrating no acute pulmonary pathology. Electronically signed by: Edison Sevilla MD 01/06/2024 07:49 AM EDT
--- NOTE | ~2023-12-18 | CT_ITS ---
EXAMINATION: CT HEAD WITHOUT CONTRAST CLINICAL INFORMATION: Lethargy. COMPARISON: CT head from 12/07/2023. TECHNIQUE: Contiguous axial imaging was performed from the skull base to vertex without intravenous administration of contrast. This CT examination was performed using dose optimization techniques as appropriate, variously including the following: *Automated exposure control. *Adjustment of mA and/or kV according to patient size (this includes techniques or standardized protocols for targeted exams where dose is matched to indication/reason for exam; i.e. extremities or head). *Use of iterative reconstruction technique. DLP: 724 mGy-cm FINDINGS: There is no evidence of acute intracranial hemorrhage or edematous territorial infarction. [place]-white matter differentiation is preserved. 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 Confluent hypoattenuation in the periventricular and deep white matter. Proportional prominence of the ventricles and sulcal spaces without evidence of obstructive hydrocephalus. No abnormal mass effect or midline shift. No extra-axial fluid collections. Calcific atherosclerotic disease of the intracranial internal carotid and vertebral arteries. No hyperdense vessel sign. No acute soft tissue or osseous abnormalities. Mild mucosal thickening of the paranasal sinuses. Mild rightward nasal septal deviation. The mastoid air cells and middle ear cavities are clear. CT/CT head/brain wo IV con IMPRESSION: 1. No evidence of acute intracranial hemorrhage or edematous territorial infarction. 2. Extensive underlying microangiopathy and generalized cerebral volume loss. 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 Electronically signed by: Can Penn DO 01/05/2024 11:40 PM EDT
--- NOTE | 2023-12-18 18:35 | P.HPHOSP_ITS ---
History of Present Illness Date of Service: 12/18/23 Attending physician on admission: An[facility] Chief Complaint: aspiration 83-year-old male with pertinent history of mood disorder, seizure disorder, hypertension, mixed hyperlipidemia, carotid stenosis on DAPT initially admitted to hospitalist service due to acute encephalopathy thought to be secondary to breakthrough partial seizure from [facility]. Was ultimately discharged to Geriatric Psychiatry with increased dose of Keppra which was ultimately discontinued due to increased agitation and patient was started on Depakote 500 mg b.i.d. without any further seizure activity. Ultimately depakote was discontinued due to elevated ammonia level (77) and was then started on lamictal (12/15). Ammonia on day of admission WNL. Mentation had improved on Geriatric Psychiatry, however earlier today, psychiatrist noted increased delirium, patient nonverbal, slightly tremulous, and less responsive. Per nursing report, patient has been aspirating on thin liquids and some thickened liquids over the last few days but was not made NPO. PNEUMATIC TOOL REPAIRER was consulted but has been unable to evaluate patient due to patient not cooperating with evaluation purulent this morning was found to be febrile up to 100.9, vital signs otherwise stable. There was no leukocytosis. Urinalysis evaluated which was not indicative of infection. Chest x-ray unremarkable. Negative for COVID- 19, RSV, influenza. There was no hypoxia. Given concerns for evolving aspiration pneumonia given fevers and witnessed aspiration, initial plan to start patient on empiric Augmentin but given he was not willing to participate in PNEUMATIC TOOL REPAIRER evaluation and therefore could not be safely continued on p.o., will be transferred to medicine for IV antibiotics and IV fluids given NPO status. Review of Systems Review of Systems: Yes Unobtainable due to mental status [facility] Medical History BPH (benign prostatic hyperplasia) Mixed hyperlipidemia Hypertension Mood disorder Seizure disorder Social History Household Members: Spouse Household Members Other:: 2 Housing: House Do you presently have visiting nurse or other home services: No Unable to assess alcohol history related to: Unknown Comment: has 1:1 Patient Tobacco Use Status: Never used Tobacco Advance Directives: Yes Advance Directives on File: Yes Advance Directives Date on File: 12/06/23 service: No Sexual orientation: Straight/Heterosexual Meds Allergies Allergy/AdvReac Type Severity Reaction Status Date / Time No Known Allergies Allergy Verified 12/06/23 18:16 Active Medications: Current Medications Calcium Carbonate (Calcium Carbonate 750 Mg Tab.Chew) 750 mg PO Q4H PRN PRN Reason: Heartburn Enoxaparin Sodium (Enoxaparin Sodium 40 Mg/0.4 Ml Syringe) 40 mg SUBCUT Q24H AYDEN Ampicillin Sodium/Sulbactam (Sodium 3 gm/ Sodium Chloride) 100 mls @ 200 mls/hr IV Q6H AYDEN Magnesium Hydroxide (Milk Of Magnesia 30 Ml Oral.Susp) 30 ml PO DAILY PRN PRN Reason: Constipation Physical Exam Vital Signs and Narrative: Constitutional - Awake and Alert, No apparent distress Eyes - PERRLA Cardiovascular - S1S2, RRR, No edema Respiratory - Normal lung expansion, Normal respiratory effort, No respiratory distress, rhonchi at bilateral lower lobes Gastrointestinal - NT / ND; +BS; No rebound or guarding Extremities - no calf tenderness bilaterally, no swelling Skin - Warm/Dry Neurological - Awake and disoriented, nonverbal, tremulous. Unable to partricipate in neuro exam. Strength appears equal bilaterally with good tone noted in extremities. PERRLA Psychological - Appropriate affect Assessment and Plan (1) Delirium: Status: Acute (2) Major neurocognitive disorder due to another medical condition with behavioral disturbance: Status: Acute (3) Aspiration into respiratory tract: Status: Acute Plan 83-year-old male with pertinent history of mood disorder, seizure disorder, h ypertension, mixed hyperlipidemia, carotid stenosis on DAPT initially admitted to hospitalist service due to acute encephalopathy thought to be secondary to breakthrough partial seizure from [facility]. Had been discharged to geriatric psychiatry now being admitted back to [facility] due to early aspiration pneumonia #Acute metabolic encephalopathy -suspect r/t aspiration pneumonia -however, tremulous on exam which could be r/t encephalopathy itself. However, given recent changes to antiepilecptics cannot excluse seizure activity (was on keppra--> changed to depakote 12/05--> changed to lamictal 12/15 due to elevated ammonia but level would not yet be therapeutic). Check EEG, neuro eval -Ammonia day of admission 27. No uremia. B12 WNL, TSH WNL -UA negative. Negative for COVID/Flu/RSV. CXR unremarkable, but concern for early aspiration pneumonia given fevers, witnessed aspiration -monitor mentation #Aspiration pneumonia -CXR negative, but witnessed aspiration and fevers. No leukocytosis, hypoxia. No sepsis -IV unasyn 3g q6h -Keep NPO, PNEUMATIC TOOL REPAIRER eval pending. Continue IVF -aspiration precautions -Follow cbc #Partial seizure disorder -seizure precautions -?breakthrough seizures given recent med changes. Recently started on lamictal 12/15 after keppra dc (agitation) then Depakote dc (elevated ammonia). Unlikely to be therapeutic -load with dilantin -EEG -Neuro eval -hold lamictal # hypertension -resume amlodipine and metoprolol once mentation improves, tolerating p.o. # carotid stenosis -resume aspirin/Plavix once mentation improves and can tolerate p.o. # unspecified dementia with behavioral disturbance -continue mood stabilizers/antipsychotics as recommended by psychiatry -psychiatry consult # chronic constipation -reduce lactulose to once daily. Had been increased to twice daily due to elevated ammonia in setting of Depakote use which has now been discontinued DVT prophylaxis-Lovenox Full code Patient requires inpatient stay at least 2 midnights for management of acute metabolic encephalopathy likely secondary to aspiration pneumonia which will require IV antibiotics and close monitoring of mentation. However, can not rule out breakthrough seizure requiring Dilantin load, EEG, and expert consultation Quality Stroke Does the patient have a stroke diagnosis?: No VTE Prior VTE?: No VTE Risk Level:: Medical - moderate - high VTE Device Contraindication: Treatment Not Indicated VTE Drug Contraindication: N/A - Med Ordered
--- OUTSIDE RECORDS SUMMARY | 2023-12-18 18:54 | XMS_ITS ---
Author Organization [facility] Address [address] [place] [address] Care Team Providers Care Body Service Team Member Name Role Phone Winifred Dorsey Primary Care Provider [phone] REASON FOR VISIT [facility] physician order Encounters Encounter Location Date Provider Diagnosis [facility] [address] [address] 09/28/2023 Winifred Dorsey PLAN OF TREATMENT Next Appt Details Provider Name:Winifred Drosey, 01/25/2024 03:00:00 PM, [address] [place] [address], [id number], Progress Notes * ANN PEREYRADOB: [birth year] (83 yo M)Acc No.[id number]:09/28/2023 Patient:??ANN PEREYRA :1940?Age:83 Y?Sex:Marilee jj Address:[address] [place] [address] * true * Date:??
--- OUTSIDE RECORDS SUMMARY | 2023-12-18 18:54 | XMS_ITS ---
Author Organization [facility] Address [address] [place] [address] Care Team Providers Care Leather Stripping Machine Operator Name Role Phone SunitaWinifred flores Primary Care Provider REASON FOR VISIT labs Encounters Encounter Location Date Provider Diagnosis [facility] [address] [address] 10/22/2023 Winifred Dorsey Hyperlipidemia, unspecified E78.5 and [...] Details Provider Name:Winifred Dorsey, 01/25/2024 03:00:00 PM, [address] [place] [address], [id number], Progress Notes * RODDY ANNDOB: [birth year] (83 yo M)Acc No.[id number]:10/22/2023 Patient:??ANN PEREYRA :1940?Age:83 Y?Sex:Marilee jj Address:[address] [place] [address] * true * Date:??
--- OUTSIDE RECORDS SUMMARY | 2023-12-18 18:54 | XMS_ITS ---
Author Organization 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 :1940?Age:83 Y?Sex:Marilee jj Date:10/22/2023 External Visit ID:[id number] Address:[address] [place] [address] [address] [id number] Subjective: * Chief Complaints: * ?1. CAD [...] before making his decisions.by thoracic surgery at [facility] with plan of surgicalrepair. S/p hernia repair [...] diaphragmatic hernia, followed by Dr. Barnard at [facility], s/p emergency surgery in 06/2023,? 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 Barnard at [facility], s/p emergency surgery in 06/2023, reports that [...] before making his decisions.by thoracic surgery at [facility] with plan of surgical repair. S/p hernia repair in 06/2023, doing well Obstructive Sleep Apnea SLEEP Patient overnight oximetry showed sawtooth pattern suggestive of obstructive sleep apnea, had sleep study in 01/2023 Neurology SEIZURES Pt was [facility] in 06/2023 with confusion, LUE weakness and [...]
--- OUTSIDE RECORDS SUMMARY | 2023-12-18 18:55 | XMS_ITS | Patient Health Record ---
Author Organization [facility] Address [address] [place] [address] Care Team Providers Care Operations Mgr Name Role Phone Winifred Dorsey Primary Care Provider RESULTS Component Value Reference Range Notes Comprehensive Metabolic Pane l (Not yet reviewed [...] 40-150 IU/L Please note new reference range. Lipid Panel (Not yet reviewe d by provider) Interpretation: Performing Lab: Notes/Report: Patient fasting?Y Triglycerides 83 Normal <=150 Normal 150-199 Borderline High 200-499 High >=500 Very High Cholesterol 138 Desirable <200 Desirable 200-239 Borderline High >=240 High LDL Cholesterol Calculated 61 Optimal <100 Optimal 100-129 Near optimal 130-159 Borderline High 160-189 High >=190 Very High HDL Cholesterol 60 40- mg/dL Complete Blood Count W/ Diff (Not yet [...] #Immature Granulocytes Auto 0.03 0.00-0.10 K/u L Comprehensive Metabolic Pane l (Not yet reviewed [...] 2.8-5.4 g/dL Alkaline Phosphatase 74 40-150 IU/L Lipid Panel (Not yet reviewe [...] Very High HDL Cholesterol 55 40- mg/dL Complete Blood Count W/ Diff (Not yet [...] #Immature Granulocytes Auto 0.02 0.00-0.10 K/u L REASON FOR REFERRAL No Information MEDICATIONS Medication [...] 1 tab(s) orally Once daily Active beta-carotene 62138 units 1 (10,000)cap( s) orally once a [...] Hypertension (unspecified) (401.9) Active confirmed Essential hypertension (67814249) Problem Abnormal kidney function study (794.4) Active confirmed Renal function tests abnormal (191578537) Problem 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) Active confirmed Squamous c ell carcinoma of nose (434833198) Problem Hypothyroidism, unspecified (E03.9) Active confirmed Hypothyroidism (97165146) Problem Hyperlipidemia, unspecified (E78.5) Active confirmed Hyperlipidemia (49948980) Problem Anxiety disorder, unspecified (F41.9) Active confirmed Anxiety disorde r (742928152) Problem Insomnia, unspecified (G47.00) Active confirmed Insomnia (218908746) Problem Essential (primary) hypertension (I10) Active confirmed Essential hypertension (41221497) Problem Atherosclerotic heart disease of [place] coronary artery without angina pectoris (I25.10) Active confirmed Atherosclerotic heart disease of [place] coronary artery without angina pectoris (097228986115178) Problem Coronary atherosclerosis due to calcified coronary lesion (I25.84) Active confirmed Atherosclerosis of coronary artery (423418366) Problem Nonrheumatic mitral (valve) prolapse (I34.1) Active confirmed Mitral valv e disorder (26501982) Problem Unspecified premature depolarization (I49.40) Active confirmed Premature beats (39869947) Problem Diaphragmatic hernia without obstruction or gangrene (K44.9) Active confirmed Diaphragmat ic hernia (48638266) Problem Constipation, unspecified (K59.00) Active confirmed Constipation (00540468) Problem Enlarged prostate without lower urinary tract symptoms (N40.0) Active confirmed Enlarged pr ostate (898761154) Problem Dyspnea, unspecified (R06.00) Active confirmed Dyspnea (858171631) Problem Retention of urine, unspecified (R33.9) Active confirmed Retention of urine (829928239) Problem Other amnesia (R41.3) Active confirmed Amnesia (83389893) Problem Encounter for preprocedural laboratory examination (Z01.812) Active confirmed Preoperative diagnosis (938162392) Problem Benign prostatic hyperplasia without lower urinary tract symptoms (N40.0) Active confirmed Benign pros tatic hypertrophy without outflow obstruction (499822084) Problem Benign prostatic hyperplasia with lower urinary tract symptoms (N40.1) Active confirmed Lower urinary tract symptoms due to benign prostatic hypertrophy (63586743697542) VITAL SIGNS Heart Rate 60 /min 10/22/2023 Blood pressure diastolic 68 mm/Hg 10/22/2023 Height 68.11 in 10/22/2023 Blood pressure systolic 118 mm/Hg 10/22/2023 Weight 134 lbs 10/22/2023 BMI 20.31 kg/m2 10/22/2023 Encounters Encounter Location Date Provider Diagnosis [facility] [address] [address] 02/08/2023 Winifred Sunita Retention of urine, unspecified R33.9 ; Diaphragmatic hernia without obstruction or gangrene K44.9 ; Essential (primary) hypertension I10 ; Dyspnea, unspecified R06.00 ; Nonrheumatic mitral (valve) prolapse I34.1 ; Constipation, unspecified K59.00 ; Pruritus, unspecified L29.9 and Anxiety disorder, unspecified F41.9 [facility] [address] [address] 05/03/2023 Winifred Dorsey Retention of urine, unspecified R33.9 ; Atherosclerotic heart disease of [place] coronary artery without angina pectoris I25.10 ; Diaphragmatic hernia without obstruction or gangrene K44.9 ; Essential (primary) hypertension I10 ; Dyspnea, unspecified R06.00 ; Nonrheumatic mitral (valve) prolapse I34.1 ; Constipation, unspecified K59.00 ; Other specified counseling Z71.89 and Pain in left toe(s) M79.[address] [address] 05/17/2023 Winifred banegas ga ght ear H61.[address] [address] 07/06/2023 Winifred Dorsey [facility] [address] [address] 07/27/2023 Winifred Dorsey [facility] [address] [address] 08/30/2023 Winifred Dorsey [facility] [address] [address] 08/30/2023 Winifred Dorsey Atherosclerotic hear t disease of [place] coronary artery without angina pectoris I25.10 ; Diaphragmatic hernia without obstruction or gangrene K44.9 ; Unspecified convulsions R56.9 ; Dyspnea, unspecified R06.00 ; Essential (primary) hypertension I10 ; Retention of urine, unspecified R33.9 ; Nonrheumatic mitral (valve) prolapse I34.1 ; Constipation, unspecified K59.00 ; Other amnesia R41.3 and Insomnia, unspecified G47.[address] [address] 10/22/2023 Winifred Romantty Atherosclerotic hear t disease of [place] coronary artery without angina pectoris I25.10 ; Retention of urine, unspecified R33.9 ; Hypoxemia R09.02 ; Diaphragmatic hernia without obstruction or gangrene K44.9 ; Essential (primary) hypertension I10 ; Unspecified convulsions R56.9 ; Dyspnea, unspecified R06.00 ; Constipation, unspecified K59.00 ; Other amnesia R41.3 ; Insomnia, unspecified G47.00 and Hypo-osmolality and hyponatremia E87.1 [facility] [address] [place] [address] 06/22/2023 Winifred Sunita [facility] [address] [place] [address] 06/22/2023 Winifred Sunita [facility] [address] [place] [address] 07/02/2023 Winifred Sunita [facility] [address] [place] [address] 07/03/2023 Winifred Sunita [facility] [address] [place] [address] 01/02/2023 Winifred Sunita [facility] [address] [place] [address] 02/08/2023 Winifred Sunita Hyperlipidemia, unspecified E78.5 [facility] [address] [place] [address] 02/23/2023 Winifred Sunita [facility] [address] [place] [address] 05/03/2023 Winifred Sunita Hyperlipidemia, unspecified E78.5 and Hypothyroidism, unspecified E03.9 [facility] [address] [place] [address] 05/07/2023 Winifred Sunita [facility] [address] [place] [address] 05/17/2023 Winifred Sunita [facility] [address] [place] [address] 07/05/2023 Winifred Sunita [facility] [address] [place] [address] 07/17/2023 Winifred Sunita [facility] [address] [place] [address] 07/18/2023 Winifred Sunita [facility] [address] [place] [address] 08/30/2023 Winifred Sunita Hyperlipidemia, unspecified E78.5 [facility] [address] [place] [address] 09/07/2023 Winifred Sunita [facility] [address] [place] [address] 09/10/2023 Winifred Sunita [facility] [address] [place] [address] 09/26/2023 Winifred Dorsey [facility] [address] [address] 09/28/2023 Winifred Dorsey [facility] [address] [address] 10/22/2023 Winifred Dorsey Hyperlipidemia, unspecified E78.5 and Hypothyroidism, unspecified E03.[address] [address] 05/05/2023 Winifred Dorsey [facility] [address] [address] 05/20/2023 Winifred Dorsey [facility] [address] [address] 05/20/2023 Winifred Dorsey [facility] [address] [address] 06/07/2023 Winifreddaquan Kumary ASSESSMENTS Encounter Date Diagnosis Assessment Notes Treatment Notes Treatment Clinical Notes 02/08/2023 Retention of urine, unspecified (ICD-10 - R33.9) Following up with urology, had a recent urodynamic testing, was adequate. Continue tamsulosin and finasteride. To f/u with urology as advised 02/08/2023 Hyperlipidemia, unspecified (ICD-10 - E78.5) 05/03/2023 Atherosclerotic hear t disease of [place] coronary artery without angina pectoris (ICD-10 - [...] Debrox. 08/30/2023 Atherosclerotic hear t disease of [place] coronary artery without angina pectoris (ICD-10 - [...] complicated by diaphragmatic hernia, s/p surgery at [facility] in 06/3023, healed well. 08/30/2023 Hyperlipidemia, unspecified (ICD-10 - E78.5) 10/22/2023 Atherosclerotic hear t disease of [place] coronary artery without angina pectoris (ICD-10 - I25.10) Status post ASHLEE x 2 to 90% stenosis proximal RCA and status post ASHLEE x 1 to 70% stenosis proximal LAD on 04/13/2023. Currently on Plavix, beta gema and aspirin. 10/22/2023 Hyperlipidemia, unspecified (ICD-10 - E78.5) 10/22/2023 Hypothyroidism, unspecified (ICD-10 - E03.9) 10/22/2023 Retention of urine, unspecified (ICD-10 - R33.9) Continue tamsulosin and finasteride. Self cath down to 2 times a day. To f/u with urology as advised. 08/30/2023 Unspecified convulsions (ICD-10 - R56.9) Continue Keppra, f/u with neuro as advised. 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 Will need surgery at [facility], once cardiac issues settle 02/08/2023 Diaphragmatic hernia without obstruction or gangrene (ICD-10 - K44.9) Unclear etiologies? history of PNA vs viral neuritis vs idiopathic. S/p surgical plication but unfortunately complicated by diaphragmatic hernia, pending repair at [facility] 02/08/2023 Essential (primary) hypertension (ICD-10 - [...] started atorvastatin and baby aspirin by cardiology 08/30/2023 Retention of urine, unspecified (ICD-10 - R33.9) Continue tamsulosin and finasteride. Self cath down to 2 times a day. To f/u with urology as advised. 10/22/2023 Essential (primary) hypertension (ICD-10 - I10) [...] use MiraLax daily and stool softeners. 08/30/2023 Nonrheumatic mitral (valve) prolapse (ICD-10 - I34.1) F/u with cardiology 02/08/2023 Constipation, unspecified (ICD-10 - K59.00) Will [...] for parking due to b/l knee pain. 10/22/2023 Dyspnea, unspecified (ICD-10 - R06.00) Ongoing issues with KAYE, most likely due to elevated diaphragm and diaphragmatic hernia which did not improve with surgical repair. Maintaining good oxygen saturation. F/u with pulmonary as advised. 08/30/2023 Constipation, unspecified (ICD-10 - K59.00) Add good portions of fruits, vegetables and fiber to diet, encouraged hydration. may use MiraLax daily and stool softeners. 08/30/2023 Other amnesia (ICD-1 0 - R41.3) Discussed various etiologies for symptoms,- has evidence of chronic lacunar infarcts, f/u with neuro for further evaluation and management. 10/22/2023 Constipation, unspecified (ICD-10 - K59.00) Add good portions of fruits, vegetables and fiber to diet, encouraged hydration. may use MiraLax daily and stool softeners. 05/03/2023 Pain in left toe(s) (ICD-10 - [...] Pending Test Test Name Order Date EKG 12/04/2019 EKG 01/15/2019 EKG 06/09/2022 EKG 06/10/2021 EKG 05/19/2019 EKG 03/22/2020 EKG 01/07/2018 EKG 03/08/2017 EKG 10/27/2016 EKG 09/12/2016 EKG 09/02/2015 EKG 12/15/2014 EKG 08/22/2013 CHEM BASIC PANEL 05/14/2019 CBC 05/14/2019 Complete Blood Count W/ Diff 05/05/2021 Complete Blood Count W/ Diff 03/15/2020 Complete Blood Count W/ Diff 07/05/2020 Comprehensive Metabolic Panel 03/15/2020 Basic Metabolic Panel 05/05/2021 Basic Metabolic Panel 07/05/2020 Lipid Panel 03/15/2020 Free Thyroxine (T4) 07/05/2020 Free Thyroxine (T4) 03/15/2020 Free Thyroxine (T4) 05/24/2022 Thyroid Stimulating Hormone [...] Details Provider Name:Winifred Dorsey, 01/25/2024 03:00:00 PM, [address] [place] [address], [id number], Insurance Providers Payer Name Payer Address Payer Phone Subscriber Number Group Number Insured Name Patient Relationship to Insured Coverage Start Date Coverage End Date MEDICARE B-[place]: [facility] [address] IB[place] BEDOYA [phone] [id number] ANN PEREYRA Self - patient is the insured [facility] (MEDICARE [place] [address] [place] LEA [phone] [id number] ANN PEREYRA Self - patient is the [...] to 70% stenosis proximal LAD on 04/13/2023- [facility] Surgical History Surgery Date(Month/Year) tonsillectomy 1947 Rt knee 1982 left inguinal hernia 1997 Lt knee 2001 s/p bilateral inguinal hernia repair on 12/30/14 b/l hydrocelectomy by Dr. Shoemaker 022 status post robotic diaphrag matic plication on 2022- Dr. Pettit
--- NOTE | 2023-12-18 19:06 | PHA.MEDREC ---
Pharmacy Consult ? Medication Reconciliation Pharmacy has completed the medication reconciliation. Patient is being transferred from S1 to S3, med list from S1 was used to complete med rec.
[2023-12-18] MEDS: Enoxaparin Sodium 40 MG/0.4 ML SYRINGE SUBCUT (19:18)
[2023-12-18] MEDS: Ampicillin Sodium/Sulbactam Na 3 GM in 0.9 % Sodium Chloride 100 ML IV ×2 (19:18→23:52)
[2023-12-18 19:37] VITALS: BP 173/83; PULSE 92; RESP 18; TEMP 38.6; O2SAT 95
[2023-12-18] MEDS: 0.9 % Sodium Chloride 500 ML IV (19:57)
[2023-12-18] MEDS: Acetaminophen 1,000 MG/100 ML PIGGYBACK 400 MG IV (19:58)
[2023-12-18 20:27] LABS: Lactic Acid 0.8 mmol/L (0.5-2.0)
[2023-12-18 20:28] VITALS: TEMP 37.8
[2023-12-18] MEDS: Lactated Ringers 1,000 ML 100 ML IVCONT (21:28)
[2023-12-18] MEDS: 0.9 % Sodium Chloride Flush 3 ML SYRINGE IVFLUSH (23:51)
[2023-12-19] VITALS (7 sets, daily range): BP systolic 109–186; BP diastolic 64–84; PULSE 58–99; RESP 16–20; TEMP 36.8–38.2; O2SAT 92–95; BMI 18.5
--- NOTE | 2023-12-19 | EEG_ITS ---
This is a 16-channel EEG with an EKG lead. The patient is reported restless and confused during the tracing. Background EEG rhythm is mixed theta, beta medium amplitude with no obvious asymmetry or paroxysmal tendency. Photic stimulation and hyperventilation were not performed. Cardiac lead does not reveal any significant abnormality. No obvious paroxysmal activity, sharp waves, or spikes are noted. IMPRESSION: Generalized slowing with no evidence of seizure disorder. MD JAYNE Bird/LEIF / [phone]
[2023-12-19] MEDS: LORazepam 2 MG/ML VIAL IVPUSH (01:28)
--- NOTE | 2023-12-19 01:49 | PC.NURSE ---
Around 00:30 pt. was attempting to get out of bed. Pt. was settled back into bed, cecile care was given and pt. appeared comfortable. Around 01:15 pt. was stat alarmed for pulling IV tubing. Upon entering the room the pt. was noted to be shaking both arms in a repetitive motion and had his blanket in his mouth. [place] was removed and multiple staff witnessed. Pt. arms dropped and he appeared still for a moment, ? post ictal. Pt. then started moving his mouth and tongue rapidly. made aware and 2mg IV ativan ordered and administered. Pt. is drowsy but has slight tremors. He appears to be having some hallucinations, writing in the air. Unable to assess patient as he does not respond to questions. BP elevated 181/02 trending down 176/83. HR 80's. Pt. is asleep at this time. Will continue to monitor.
--- NOTE | 2023-12-19 02:25 | PM.EVENT ---
Event Note Date of Service: 12/19/23 Event Note: RN reported shaking upper extremities, ?breakthrough seizure. Ordered IV ativan. Appreciate neurolgoy Time Spent With Patient Time: Total time managing care of this patient today ____ minutes.
[2023-12-19] MEDS: Ampicillin Sodium/Sulbactam Na 3 GM in 0.9 % Sodium Chloride 100 ML IV ×4 (05:45→23:53)
[2023-12-19] MEDS: Lactated Ringers 1,000 ML 100 ML IVCONT (05:47)
[2023-12-19 06:08] LABS: MANUAL DIFF FLAG NO
[2023-12-19 06:22] LABS: Basophils Absolute Auto 0.1 X10*3/uL (0.0-0.2); Basophils Percent Auto 0.6 % (0-2); Eosinophils Absolute Auto 0.1 X10*3/uL (0.0-0.4); Eosinophils Percent Auto 0.7 % (0-4); Hematocrit 32.9 % (42.0-52.0); Hemoglobin 11.2 g/dl (14.0-18.0); Imm Gran Abs Auto 0.05 X10*3/uL (0.00-0.03); Imm Gran Pct Auto 0.6 % (0.0-0.4); Lymphocytes Absolute Auto 0.8 X10*3/uL (1.2-4.9); Lymphocytes Percent Auto 8.9 % (20-40); Mean Corpuscular Hemoglobin 33.3 pg (27.0-33.0); Mean Corpuscular Volume 97.9 fL (80.0-98.0); Mean Platelet Volume 11.2 fL (9.4-12.4); Monocytes Absolute Auto 1.2 X10*3/uL (0.1-1.2); Neutrophils Absolute Auto 6.3 x10*3/uL (2.0-8.3); Neutrophils Percent Auto 75.2 % (45-73); Platelet Count 199 X10*3/uL (160-400); Red Blood Count 3.36 X10*6/uL (4.60-5.80); Red Cell Distribution Width 13.2 % (11.0-16.0); White Blood Count 8.4 X10*3/uL (4.8-10.8)
[2023-12-19 06:33] LABS: Anion Gap 12 (12-20); Blood Urea Nitrogen 25 mg/dL (9-16); Calcium 8.7 mg/dL (8.4-10.2); Carbon Dioxide 28 mmol/L (22-29); Chloride 106 mmol/L (96-108); Estimated Glomerular Filt Rate > 60; Glucose Random 95 mg/dL (60-115); Potassium 3.5 mmol/L (3.3-5.1); Sodium 142 mmol/L (135-145)
--- NOTE | 2023-12-19 07:35 | P.PNIM_ITS ---
Subjective Subjective Date of Service: 12/19/23 Interval History: Seen in follow up for breakthrough seizures, aspiration pneumonia Interval history: Remains tremulous, more awake. Unable to obtain ROS. Mumbling but utters name and place, disoriented to time. Received IV ativan x1 last night for suspected breakthrough seizures Review of Systems Review of Systems: Yes Unobtainable due to mental status Physical Exam 2 Vital Signs: Vital Signs: Last Vital Signs Temp 99.0 F 12/19/23 04:00 Pulse 99 12/19/23 04:00 Resp 20 12/19/23 04:00 BP 186/84 H 12/19/23 04:00 Pulse Ox 93 12/19/23 04:00 O2 Del Method Room Air 12/19/23 04:00 Constitutional - Awake and Alert, No apparent distress Eyes - PERRLA, EOMI Cardiovascular - S1S2, RRR, No edema Respiratory - Normal lung expansion, Normal respiratory effort, No respiratory distress, bilateral lower lobe crackles Gastrointestinal - NT / ND; +BS; No rebound or guarding Extremities - no calf tenderness bilaterally, no swelling Skin - Warm/Dry Neurological - Alert, mumbling barely audible but states name and place, disoriented to time. Diffuse tremors Objective Data Active Medications Acetaminophen (Acetaminophen 325 Mg Tablet) 650 mg PO Q6H PRN PRN Reason: Pain, Mild (Pain Scale 1-3), fever or headache Al Hydroxide/Mg Hydroxide (Magnesium Hydrox/Alum Hydrox 30 Ml Oral.Susp) 30 ml PO Q6H PRN PRN Reason: Heartburn/Nausea Amlodipine Besylate (Amlodipine Besylate 10 Mg Tablet) 10 mg PO DAILY [facility]; Protocol Aspirin (Aspirin 81 Mg Tab.Chew) 81 mg PO DAILY [facility] Atorvastatin Calcium (Atorvastatin Calcium 20 Mg Tablet) 20 mg PO BEDTIME [facility] Last Admin: 12/18/23 20:46 Dose: Not Given Documented By: KATARZYNA Non-Admin Reason: NPO Bethanechol Chloride (Bethanechol Chloride 25 Mg Tablet) 25 mg PO TID [facility] Last Admin: 12/18/23 20:46 Dose: Not Given Documented By: KATARZYNA Non-Admin Reason: NPO Calcium Carbonate (Calcium Carbonate 750 Mg Tab.Chew) 750 mg PO Q4H PRN PRN Reason: Heartburn Clopidogrel Bisulfate (Clopidogrel Bisulfate 75 Mg Tablet) 75 mg PO DAILY [facility] Enoxaparin Sodium (Enoxaparin Sodium 40 Mg/0.4 Ml Syringe) 40 mg SUBCUT Q24H [facility] Last Admin: 12/18/23 19:18 Dose: 40 mg Documented By: KATARZYNA Finasteride (Finasteride 5 Mg Tablet) 5 mg PO DAILY [facility] Ampicillin Sodium/Sulbactam (Sodium 3 gm/ Sodium Chloride) 100 mls @ 200 mls/hr IV Q6H [facility] Last Infusion: 12/19/23 06:19 Dose: Infused Documented By: JOSEPH Lactated Ringer's (Lr) 1,000 mls @ 100 mls/hr IVCONT .Q10H [facility] Last Admin: 12/19/23 05:47 Dose: 100 mls/hr Documented By: JOSEPH Lactulose (Lactulose 20 Gm/30 Ml Solution) 20 gm PO DAILY [facility] Magnesium Hydroxide (Milk Of Magnesia 30 Ml Oral.Susp) 30 ml PO DAILY PRN PRN Reason: Constipation Melatonin (Melatonin 3 Mg Tablet) 6 mg PO BEDTIME PRN PRN Reason: Insomnia Metoprolol Succinate (Metoprolol Succinate Er 25 Mg Tab.Er.24h) 25 mg PO DAILY [facility]; Protocol Mirtazapine (Mirtazapine 30 Mg Tablet) 30 mg PO BEDTIME [facility] Last Admin: 12/18/23 20:46 Dose: Not Given Documented By: KATARZYNA Non-Admin Reason: NPO Olanzapine (Olanzapine Odt 10 Mg Tab.Rapdis) 5 mg TRANSLINGU BID PRN PRN Reason: agitation Olanzapine (Olanzapine Odt 10 Mg Tab.Rapdis) 10 mg TRANSLINGU DAILY@1800 [facility] Phenytoin Sodium (Phenytoin Sodium Extended 100 Mg Capsule) 300 mg PO TID [facility] Phenytoin Sodium (Phenytoin Sodium 100 Mg/2 Ml Vial) 300 mg IVPUSH ONCE ONE Stop: 12/19/23 11:31 Phenytoin Sodium (Phenytoin Sodium 100 Mg/2 Ml Vial) 300 mg IVPUSH ONCE ONE Stop: 12/20/23 09:31 Phenytoin Sodium (Phenytoin Sodium 100 Mg/2 Ml Vial) 400 mg IVPUSH ONCE ONE Stop: 12/19/23 07:32 Sodium Chloride (0.9 % Sodium Chloride Flush 3 Ml Syringe) 3 ml IVFLUSH QSHIFT [facility] Last Admin: 12/18/23 23:51 Dose: 3 ml Documented By: JOSEPH Tamsulosin HCl (Tamsulosin Hcl 0.4 Mg Capsule) 0.4 mg PO BEDTIME [facility] Last Admin: 12/18/23 20:46 Dose: Not Given Documented By: KATARZYNA Non-Admin Reason: NPO Labs 12/19/23 05:26 12/19/23 05:26 Labs: Laboratory Results - last 24 hr 12/18/23 12/19/23 19:54 05:26 MCV 97.9 MCH 33.3 H MCHC 34.0 RDW 13.2 Plt Count 199 MPV 11.2 Immature Gran % (Auto) 0.6 H Neut % (Auto) 75.2 H Lymph % (Auto) 8.9 L [place] % (Auto) 14.0 H Eos % (Auto) 0.7 Baso % (Auto) 0.6 Lymph # (Auto) 0.8 L [place] # (Auto) 1.2 Eos # (Auto) 0.1 Baso # (Auto) 0.1 Abs Immat Gran (auto) 0.05 H Absolute Neuts (auto) 6.3 Absolute Nucleated RBC 0.000 Nucleated RBC % (auto) 0.0 Anion Gap 12 Estim Creat Clear Calc TNP Estimated GFR > 60 Random Glucose 95 Lactic Acid 0.8 Calcium 8.7 Assessment and Plan (1) Aspiration into respiratory tract: Status: Acute (2) Delirium: Status: Acute Plan 83-year-old male with pertinent history of mood disorder, seizure disorder, hypertension, mixed hyperlipidemia, carotid stenosis on DAPT initially admitted to hospitalist service due to acute encephalopathy thought to be secondary to breakthrough partial seizure from [facility]. Had been discharged to geriatric psychiatry now being admitted back to [facility] due to early aspiration pneumonia #Acute metabolic encephalopathy -suspect r/t aspiration pneumonia -however, tremulous on exam which could be r/t encephalopathy itself. However, given recent changes to antiepilecptics cannot excluse seizure activity (was on keppra--> changed to depakote 12/05--> changed to lamictal 12/15 due to elevated ammonia but level would not yet be therapeutic). -Ammonia day of admission 27. No uremia. B12 WNL, TSH WNL -UA negative. Negative for COVID/Flu/RSV. CXR unremarkable, but concern for early aspiration pneumonia given fevers, witnessed aspiration -continuous tremors likely r/t encephalopathy/infection rather than breakthrough seizures as patient alert and states name/place -EEG pending -monitor mentation #Aspiration pneumonia -CXR negative, but witnessed aspiration and fevers. No leukocytosis, hypoxia. No sepsis -IV unasyn 3g q6h -Seen by DIRECTOR MED[employer]AF[employer]- pureed diet, thin liquids with pills crushed in puree. DC IVF -aspiration precautions -Follow cbc #Partial seizure disorder -seizure precautions -?breakthrough seizures given recent med changes noted overnight. Recently started on lamictal 12/15 after keppra dc (agitation) then Depakote dc (elevated ammonia). Unlikely to be therapeutic -load with dilantin, then start maintenance 100mg TID, stop lamictal per neuro -eeg pending # hypertension -resume amlodipine and metoprolol once mentation improves, tolerating p.o. # carotid stenosis -resume aspirin/Plavix once mentation improves and can tolerate p.o. # unspecified dementia with behavioral disturbance -continue mood stabilizers/antipsychotics as recommended by psychiatry -psychiatry consult # chronic constipation -reduce lactulose to once daily. Had been increased to twice daily due to elevated ammonia in setting of Depakote use which has now been discontinued DVT prophylaxis-Lovenox Full code Patient requires ongoing inpatient stay due to aspiration pneumonia, encephalopathy, still febrile on iv abx. Once afebrile with improvement in mental status will require care team assessment for return to [facility] Quality Stroke Does the patient have a stroke diagnosis?: No VTE Prior VTE?: No VTE Risk Level:: Medical - moderate - high VTE Device Contraindication: Treatment Not Indicated VTE Drug Contraindication: N/A - Med Ordered
[2023-12-19] MEDS: Phenytoin Sodium 100 MG/2 ML VIAL 400 MG IVPUSH (08:31)
--- NOTE | 2023-12-19 10:24 | P.CNNE_ITS ---
History of Present Illness Data of Consult Service Date: 12/19/23 Primary Care Provider: Unknown Physician HPI Reason for consult: Altered mental status, ? Sz This is a 83-year-old male with history of mood disorder, seizure disorder, hypertension, mixed hyperlipidemia, carotid stenosis on DAPT initially admitted to hospitalist service due to acute encephalopathy thought to be secondary to breakthrough partial seizure from [facility]. Was ultimately discharged to Geriatric Psychiatry with increased dose of Keppra which was ultimately discontinued due to increased agitation and patient was started on Depakote 500 mg b.i.d. without any further seizure activity. Ultimately depakote was discontinued due to elevated ammonia level (77) and was then started on lamictal 25 mg qd on 12/16/23. Ammonia on day of admission WNL. Mentation had improved on Geriatric Psychiatry, however earlier today, psychiatrist noted increased delirium, patient nonverbal, slightly tremulous, and less responsive. Per nursing report, patient has been aspirating on thin liquids and some thickened liquids over the last few days but was not made NPO.Swallowing test could not be done due to poor cooperation. Febrile up to 100.9, vital signs otherwise stable. There was no leukocytosis. Urinalysis evaluated which was not indicative of infection. Chest x-ray unremarkable. Negative for COVID-19, RSV, influenza. There was no hypoxia. Given concerns for evolving aspiration pneumonia given fevers and witnessed aspiration, initial plan to start patient on empiric Augmentin but given his aspiration, admitted for IV antibiotics and IV fluids given NPO status. PMFSH Past Medical History Medical History BPH (benign prostatic hyperplasia) Mixed hyperlipidemia Hypertension Mood disorder Seizure disorder Social History Social History Household Members: Spouse Household Members Other:: 2 Housing: Unknown / Unable to assess Unable to assess alcohol history related to: Unknown Comment: has 1:1 Patient Tobacco Use Status: Never used Tobacco Use of substances other than those prescribed or required for medical reasons: Unable to respond Currently Displaying Signs/Symptoms of Drug Intoxication Withdrawal: No Advance Directives: Yes Advance Directives on File: Yes Advance Directives Date on File: 12/06/23 Do you have a plan to hurt others: No Plan service: No Sexual orientation: Straight/Heterosexual Meds Allergies Allergy/AdvReac Type Severity Reaction Status Date / Time No Known Allergies Allergy Verified 12/06/23 18:16 Active Medications: Current Medications Acetaminophen (Acetaminophen Supp 650 Mg Supp.Rect) 650 mg RI Q4H PRN PRN Reason: fever, h/a, mild pain Al Hydroxide/Mg Hydroxide (Magnesium Hydrox/Alum Hydrox 30 Ml Oral.Susp) 30 ml PO Q6H PRN PRN Reason: Heartburn/Nausea Amlodipine Besylate (Amlodipine Besylate 10 Mg Tablet) 10 mg PO DAILY [facility]; Protocol Last Admin: 12/19/23 07:52 Dose: Not Given Aspirin (Aspirin 81 Mg Tab.Chew) 81 mg PO DAILY [facility] Last Admin: 12/19/23 07:53 Dose: Not Given Atorvastatin Calcium (Atorvastatin Calcium 20 Mg Tablet) 20 mg PO BEDTIME [facility] Last Admin: 12/18/23 20:46 Dose: Not Given Bethanechol Chloride (Bethanechol Chloride 25 Mg Tablet) 25 mg PO TID [facility] Last Admin: 12/19/23 07:53 Dose: Not Given Calcium Carbonate (Calcium Carbonate 750 Mg Tab.Chew) 750 mg PO Q4H PRN PRN Reason: Heartburn Clopidogrel Bisulfate (Clopidogrel Bisulfate 75 Mg Tablet) 75 mg PO DAILY [facility] Last Admin: 12/19/23 07:53 Dose: Not Given Enoxaparin Sodium (Enoxaparin Sodium 40 Mg/0.4 Ml Syringe) 40 mg SUBCUT Q24H [facility] Last Admin: 12/18/23 19:18 Dose: 40 mg Finasteride (Finasteride 5 Mg Tablet) 5 mg PO DAILY [facility] Last Admin: 12/19/23 07:53 Dose: Not Given Ampicillin Sodium/Sulbactam (Sodium 3 gm/ Sodium Chloride) 100 mls @ 200 mls/hr IV Q6H [facility] Last Infusion: 12/19/23 06:19 Dose: Infused Lactated Ringer's (Lr) 1,000 mls @ 100 mls/hr IVCONT .Q10H [facility] Last Admin: 12/19/23 05:47 Dose: 100 mls/hr Lactulose (Lactulose 20 Gm/30 Ml Solution) 20 gm PO DAILY [facility] Last Admin: 12/19/23 07:53 Dose: Not Given Magnesium Hydroxide (Milk Of Magnesia 30 Ml Oral.Susp) 30 ml PO DAILY PRN PRN Reason: Constipation Melatonin (Melatonin 3 Mg Tablet) 6 mg PO BEDTIME PRN PRN Reason: Insomnia Metoprolol Succinate (Metoprolol Succinate Er 25 Mg Tab.Er.24h) 25 mg PO DAILY [facility]; Protocol Last Admin: 12/19/23 07:53 Dose: Not Given Mirtazapine (Mirtazapine 30 Mg Tablet) 30 mg PO BEDTIME [facility] Last Admin: 12/18/23 20:46 Dose: Not Given Olanzapine (Olanzapine Odt 10 Mg Tab.Rapdis) 5 mg TRANSLINGU BID PRN PRN Reason: agitation Olanzapine (Olanzapine Odt 10 Mg Tab.Rapdis) 10 mg TRANSLINGU DAILY@1800 [facility] Phenytoin Sodium (Phenytoin Sodium 100 Mg/2 Ml Vial) 300 mg IVPUSH ONCE ONE Stop: 12/19/23 11:31 Phenytoin Sodium (Phenytoin Sodium 100 Mg/2 Ml Vial) 100 mg IVPUSH TID [facility] Sodium Chloride (0.9 % Sodium Chloride Flush 3 Ml Syringe) 3 ml IVFLUSH QSHIFT [facility] Last Admin: 12/19/23 09:18 Dose: Not Given Tamsulosin HCl (Tamsulosin Hcl 0.4 Mg Capsule) 0.4 mg PO BEDTIME [facility] Last Admin: 12/18/23 20:46 Dose: Not Given Physical Exam 2 Vital Signs: Vital Signs: Last Vital Signs Temp 99.0 F 12/19/23 04:00 Pulse 99 12/19/23 04:00 Resp 20 12/19/23 04:00 BP 186/84 H 12/19/23 04:00 Pulse Ox 93 12/19/23 04:00 O2 Del Method Room Air 12/19/23 04:00 Neuro: Other: He is obtunded and will occasionally moan. He will rarely open his eyes briefly. He does not follow commands, except an occasional one-step command. He is tremulous and picking at bedclothes with his hands. He can move all 4 extremities against gravity. There is some degree of nuchal rigidity. Plantar response are flexor. Results Labs 12/19/23 05:26 12/19/23 05:26 Labs: Short CBC 12/19/23 Range/Units 05:26 WBC 8.4 (4.8-10.8) X10*3/uL Hgb 11.2 L (14.0-18.0) g/dl Hct 32.9 L (42.0-52.0) % Plt Count 199 (160-400) X10*3/uL BMP 12/19/23 05:26 Sodium 142 Potassium 3.5 Chloride 106 Carbon Dioxide 28 BUN 25 H Creatinine 1.02 Calcium 8.7 Assessment and Plan (1) Delirium: Status: Acute Encephalopathy and agitation probably related to infection, aspiration and baseline dementia. Recommendation treat infection, hydration. If his obtundation continues, it would be appropriate to do a lumbar puncture although meningitis is a low probability (2) Seizure disorder: Status: Acute No definite seizure recurrence. Recommendation: EEG. Dilantin IV 300 mg a day. After an initial loading dose of 1 g if it has not already been given. Stop lamotrigine Procedures Date of Service Date of Service: 12/19/23
[2023-12-19] MEDS: Phenytoin Sodium 300 MG in 0.9 % Sodium Chloride 100 ML 100 MG IV ×2 (11:01→12:18)
--- NOTE | 2023-12-19 13:09 | MHC.CM.PN ---
SPOKE WITH PTS AND HCP YANNICK [phone] WHO [facility] PT IS FROM [facility] WOULD HAVE PREFERRED PT BE PLACED CLOSER TO WHERE SHE IS AT IN [facility] PLAN RETURN TO PSYCH
--- NOTE | 2023-12-19 13:50 | MHC.CLN ---
NUTRITION ADM TO MED/SURG FLOOR FROM [facility] DUE TO ASPIRATION PNEUMONIA. DIET=REGULAR, PUREE CONSISTENCY. PREVIOUS DIET WAS REGULAR CONSISTENCY ON [facility]. HX VARIABLE INTAKE. ADD ENSURE BID TO PROMOTE NUTRITIONAL INTAKE. SUPPLEMENT PROVIDES 700 KCALS, 40 G PROTEIN. PATIENT IS UNDERWEIGHT BUT DOES NOT APPEAR MALNOURISHED. SUSAN=13. NO SKIN ISSUES NOTED. FOLLOW FOR DIET TOLERANCE AND INTAKE. SEE CLINICAL NUTRITION ASSESSMENT 12/19/23.
--- NOTE | 2023-12-19 14:24 | MHC.SL.SWA ---
Dysphasia Diet Status: UPGRADE from NPO Liquid Consistency and Strategies for Safe Swallow: Liquid Intake Recommendation: Thin Liquid Intake Strategies: Small Sips Solid Food Consistency: Dietary Recommendations: Pureed (NDD1) Oral Medication Intake: Crushed with Puree Please contact the pharmacy regarding appropriate crushable or liquid drug formulations that are available whenever modified delivery is recommended. Compensatory Strategies and Precautions to be Taken for Safe Swallow: Sitting Upright (90 deg) Small Bites and Sips Alternate Liquids/Solids Rate of Ingestion Change Supervision While Eating and Drinking for Safe Swallow: Total Assistance (1:1) Swallowing Recommended Treatments: Compens. Strategy Educat. Recommendation for Speech: Inpatient Speech Therapy Comment: Recommend UPGRADE from NPO to PUREE solids (NDD1) and THIN liquids w/ pills CRUSHED in PUREE. 1-1 FEED. Strict aspiration precautions apply. Ensure good and frequent oral care. Yarn Salvager Clinican/Clinical Fellow: No Supervisory Statement: I have reviewed and agree with the student/clinical fellow's documentation: N/A Speech Language Pathologist: Rae Youngblood M.A., CCC-TAX EVALUATOR
[2023-12-19] MEDS: Bethanechol Chloride 25 MG TABLET PO ×2 (14:50→20:16)
[2023-12-19] MEDS: Acetaminophen Supp 650 MG SUPP.RECT PR (14:52)
[2023-12-19] MEDS: Enoxaparin Sodium 40 MG/0.4 ML SYRINGE SUBCUT (18:28)
[2023-12-19] MEDS: Ibuprofen 600 MG TABLET PO (18:31)
[2023-12-19] MEDS: Tamsulosin HCL 0.4 MG CAPSULE PO (20:16)
[2023-12-19] MEDS: Atorvastatin Calcium 20 MG TABLET PO (20:16)
[2023-12-19] MEDS: Mirtazapine 30 MG TABLET PO (20:16)
[2023-12-19] MEDS: Phenytoin Oral Susp 100 MG/4 ML ORAL.SUSP PO (22:50)
[2023-12-19] MEDS: OLANZapine ODT 10 MG TAB.RAPDIS 5 MG TRANSLINGU (22:55)
[2023-12-19] MEDS: 0.9 % Sodium Chloride Flush 3 ML SYRINGE IVFLUSH (23:12)
[2023-12-20 04:00] VITALS: BP 136/86; PULSE 70; RESP 18; TEMP 36.2; O2SAT 94
[2023-12-20] MEDS: Omeprazole 20 MG CAPSULE.DR PO (05:44)
[2023-12-20] MEDS: Ampicillin Sodium/Sulbactam Na 3 GM in 0.9 % Sodium Chloride 100 ML IV ×3 (05:45→18:36)
[2023-12-20 07:06] VITALS: BP 156/75; PULSE 70; RESP 18; TEMP 36.6; O2SAT 95
--- NOTE | 2023-12-20 08:45 | P.PNIM_ITS ---
Subjective Subjective Date of Service: 12/20/23 Interval History: Seen in follow up for breakthrough seizures, aspiration pneumonia Interval history: he is more alert, yet confused Physical Exam 2 Vital Signs: Vital Signs: Last Vital Signs Temp 97.8 F 12/20/23 07:06 Pulse 70 12/20/23 07:06 Resp 18 12/20/23 07:06 BP 156/75 H 12/20/23 07:06 Pulse Ox 95 12/20/23 07:06 O2 Del Method Room Air 12/20/23 07:06 BMI result Body Mass Index 18.5 Constitutional - Oriented to self and [place] Eyes - PERRLA, EOMI Cardiovascular - S1S2, RRR, No edema Respiratory - Normal lung expansion, Normal respiratory effort, No respiratory distress, bilateral lower lobe crackles Gastrointestinal - NT / ND; +BS; No rebound or guarding Extremities - no calf tenderness bilaterally, no swelling Skin - Warm/Dry Neurological - Alert, mumbling barely audible but states name and place, disoriented to time. No tremors Objective Data Active Medications Acetaminophen (Acetaminophen Supp 650 Mg Supp.Rect) 650 mg [place] Q4H PRN PRN Reason: fever, h/a, mild pain Last Admin: 12/19/23 14:52 Dose: 650 mg Documented By: RAUL Al Hydroxide/Mg Hydroxide (Magnesium Hydrox/Alum Hydrox 30 Ml Oral.Susp) 30 ml PO Q6H PRN PRN Reason: Heartburn/Nausea Amlodipine Besylate (Amlodipine Besylate 10 Mg Tablet) 10 mg PO DAILY [facility]; Protocol Last Admin: 12/19/23 07:52 Dose: Not Given Documented By: RAUL Non-Admin Reason: NPO Aspirin (Aspirin 81 Mg Tab.Chew) 81 mg PO DAILY [facility] Last Admin: 12/19/23 07:53 Dose: Not Given Documented By: RAUL Non-Admin Reason: NPO Atorvastatin Calcium (Atorvastatin Calcium 20 Mg Tablet) 20 mg PO BEDTIME [facility] Last Admin: 12/19/23 20:16 Dose: 20 mg Documented By: LIGIA Bethanechol Chloride (Bethanechol Chloride 25 Mg Tablet) 25 mg PO TID [facility] Last Admin: 12/19/23 20:16 Dose: 25 mg Documented By: LIGIA Calcium Carbonate (Calcium Carbonate 750 Mg Tab.Chew) 750 mg PO Q4H PRN PRN Reason: Heartburn Clopidogrel Bisulfate (Clopidogrel Bisulfate 75 Mg Tablet) 75 mg PO DAILY [facility] Last Admin: 12/19/23 07:53 Dose: Not Given Documented By: RAUL Non-Admin Reason: NPO Enoxaparin Sodium (Enoxaparin Sodium 40 Mg/0.4 Ml Syringe) 40 mg SUBCUT Q24H [facility] Last Admin: 12/19/23 18:28 Dose: 40 mg Documented By: RAUL Finasteride (Finasteride 5 Mg Tablet) 5 mg PO DAILY [facility] Last Admin: 12/19/23 07:53 Dose: Not Given Documented By: RAUL Non-Admin Reason: NPO Ampicillin Sodium/Sulbactam (Sodium 3 gm/ Sodium Chloride) 100 mls @ 200 mls/hr IV Q6H [facility] Last Infusion: 12/20/23 06:29 Dose: Infused Documented By: LIGIA Ibuprofen (Ibuprofen 600 Mg Tablet) 600 mg PO Q6H PRN PRN Reason: Fever >100.4 Last Admin: 12/19/23 18:31 Dose: 600 mg Documented By: RAUL Lactulose (Lactulose 20 Gm/30 Ml Solution) 20 gm PO DAILY [facility] Last Admin: 12/19/23 07:53 Dose: Not Given Documented By: RAUL Non-Admin Reason: NPO Magnesium Hydroxide (Milk Of Magnesia 30 Ml Oral.Susp) 30 ml PO DAILY PRN PRN Reason: Constipation Melatonin (Melatonin 3 Mg Tablet) 6 mg PO BEDTIME PRN PRN Reason: Insomnia Metoprolol Succinate (Metoprolol Succinate Er 25 Mg Tab.Er.24h) 25 mg PO DAILY [facility]; Protocol Last Admin: 12/19/23 07:53 Dose: Not Given Documented By: RAUL Non-Admin Reason: NPO Mirtazapine (Mirtazapine 30 Mg Tablet) 30 mg PO BEDTIME [facility] Last Admin: 12/19/23 20:16 Dose: 30 mg Documented By: LIGIA Olanzapine (Olanzapine Odt 10 Mg Tab.Rapdis) 5 mg TRANSLINGU BID PRN PRN Reason: agitation Last Admin: 12/19/23 22:55 Dose: 5 mg Documented By: LIGIA Olanzapine (Olanzapine Odt 10 Mg Tab.Rapdis) 10 mg TRANSLINGU DAILY@1800 [facility] Last Admin: 12/19/23 18:28 Dose: Not Given Documented By: RAUL Non-Admin Reason: Physician Approved Omeprazole (Omeprazole 20 Mg Capsule.) 20 mg PO DAILY@0630 [facility] Last Admin: 12/20/23 05:44 Dose: 20 mg Documented By: LIGIA Phenytoin (Phenytoin Oral Susp 100 Mg/4 Ml Oral.Susp) 100 mg PO TID [facility] Last Admin: 12/19/23 22:50 Dose: 100 mg Documented By: LIGIA Sodium Chloride (0.9 % Sodium Chloride Flush 3 Ml Syringe) 3 ml IVFLUSH QSHIFT [facility] Last Admin: 12/19/23 23:12 Dose: 3 ml Documented By: LIGIA Tamsulosin HCl (Tamsulosin Hcl 0.4 Mg Capsule) 0.4 mg PO BEDTIME [facility] Last Admin: 12/19/23 20:16 Dose: 0.4 mg Documented By: LIGIA Labs 12/19/23 05:26 12/19/23 05:26 Microbiology Microbiology Results: Microbiology 12/18/23 19:54 Blood Culture - Preliminary Blood - Venous No growth after 24 hours. 12/18/23 19:54 Blood Culture - Preliminary Blood - Venous No growth after 24 hours. Assessment and Plan (1) Aspiration into respiratory tract: Status: Acute (2) Delirium: Status: Acute Plan 83-year-old male with pertinent history of mood disorder, seizure disorder, hypertension, mixed hyperlipidemia, carotid stenosis on DAPT initially admitted to hospitalist service due to acute encephalopathy thought to be secondary to breakthrough partial seizure from [facility]. Had been discharged to geriatric psychiatry now being admitted back to [facility] due to early aspiration pneumonia #Acute metabolic encephalopathy -suspect r/t aspiration pneumonia -however, tremulous on exam which could be r/t encephalopathy itself. However, given recent changes to antiepilecptics cannot excluse seizure activity (was on keppra--> changed to depakote 12/05--> changed to lamictal 12/15 due to elevated ammonia but level would not yet be therapeutic). -Ammonia day of admission 27. No uremia. B12 WNL, TSH WNL -UA negative. Negative for COVID/Flu/RSV. CXR unremarkable, but concern for early aspiration pneumonia given fevers, witnessed aspiration -continuous tremors likely r/t encephalopathy/infection rather than breakthrough seizures as patient alert and states name/place -EEG pending -monitor mentation #Aspiration pneumonia -CXR negative, but witnessed aspiration and fevers. No leukocytosis, hypoxia. No sepsis -IV unasyn 3g q4r--jygikn to Augmentin today -Seen by GR[employer]- pureed diet, thin liquids with pills crushed in puree. DC IVF -aspiration precautions -Follow cbc #Partial seizure disorder -seizure precautions -?breakthrough seizures given recent med changes noted overnight. Recently started on lamictal 12/15 after keppra dc (agitation) then Depakote dc (elevated ammonia). Unlikely to be therapeutic -load with dilantin, continue 100mg TID, stop lamictal per neuro -eeg pending # hypertension -resume amlodipine and metoprolol once mentation improves, tolerating p.o. # carotid stenosis -resume aspirin/Plavix once mentation improves and can tolerate p.o. # unspecified dementia with behavioral disturbance -continue mood stabilizers/antipsychotics as recommended by psychiatry -psychiatry consult # chronic constipation -reduce lactulose to once daily. Had been increased to twice daily due to elevated ammonia in setting of Depakote use which has now been discontinued DVT prophylaxis-Lovenox Full code Patient requires ongoing inpatient stay due to aspiration pneumonia, encephalopathy, still febrile on iv abx. Once afebrile with improvement in mental status will require care team assessment for return to [facility] Quality Stroke Does the patient have a stroke diagnosis?: No VTE Prior VTE?: No VTE Risk Level:: Medical - moderate - high VTE Device Contraindication: Treatment Not Indicated VTE Drug Contraindication: N/A - Med Ordered
[2023-12-20] MEDS: Phenytoin Oral Susp 100 MG/4 ML ORAL.SUSP PO ×3 (10:29→19:21)
[2023-12-20 10:30] VITALS: BP 143/70; PULSE 79
[2023-12-20] MEDS: Metoprolol Succinate ER 25 MG TAB.ER.24H PO (10:30)
[2023-12-20] MEDS: Aspirin 81 MG TAB.CHEW PO (10:31)
[2023-12-20] MEDS: Clopidogrel Bisulfate 75 MG TABLET PO (10:32)
[2023-12-20] MEDS: Bethanechol Chloride 25 MG TABLET PO ×3 (10:32→19:21)
[2023-12-20 10:33] VITALS: BP 143/70
[2023-12-20] MEDS: amLODIPine Besylate 10 MG TABLET PO (10:33)
[2023-12-20] MEDS: Finasteride 5 MG TABLET PO ×2 (10:34)
[2023-12-20] MEDS: Lactulose 20 GM/30 ML SOLUTION PO (10:35)
[2023-12-20] MEDS: OLANZapine ODT 10 MG TAB.RAPDIS 5 MG TRANSLINGU (10:36)
[2023-12-20] MEDS: 0.9 % Sodium Chloride Flush 3 ML SYRINGE IVFLUSH ×3 (10:40→19:29)
--- NOTE | 2023-12-20 10:47 | PC.NURSE ---
Patient agitated ,pulling on adames trying to get oob,reassured patient ,repositioned,prn Zyprexa administered,will monitor
--- NOTE | 2023-12-20 13:05 | MHC.SLORD ---
Speech Language Pathology Order Status: Attempted to see patient at lunch, which patient had finished at time of [employer] visit. Tray of food was completely eaten, offered patient sips of gingerale by straw which patient tolerated well. Tolerating current diet of Puree/Thin.
--- NOTE | 2023-12-20 14:57 | MHC.CM.PN ---
PER PSYCH SW, PRIOR TO ADMISSION PATIENT LIVED AT HOME W/ , INDP, NO SERVICES. NEW BEHAVIORS, ? R/T CHANGE IN SEIZURE MEDS. HAS BEEN TO STR @ [facility] IN THE PAST. PATIENT NOT MEDICALLY CLEARED, NO PT EVAL ORDERED AT THIS TIME, WILL NEED CARE EVAL WHEN CLEARED.
[2023-12-20 16:10] VITALS: BP 146/85; PULSE 73; RESP 12; TEMP 36.1; O2SAT 93
[2023-12-20] MEDS: OLANZapine ODT 10 MG TAB.RAPDIS TRANSLINGU (17:24)
[2023-12-20] MEDS: Enoxaparin Sodium 40 MG/0.4 ML SYRINGE SUBCUT (17:24)
[2023-12-20] MEDS: Tamsulosin HCL 0.4 MG CAPSULE PO (19:21)
[2023-12-20] MEDS: Atorvastatin Calcium 20 MG TABLET PO (19:22)
[2023-12-20] MEDS: Mirtazapine 30 MG TABLET PO (19:22)
[2023-12-20 19:47] VITALS: BP 154/63; PULSE 84; RESP 18; TEMP 36.7; O2SAT 93
[2023-12-20] MEDS: OLANZapine 10 MG VIAL IM (20:49)
--- NOTE | 2023-12-20 20:53 | PC.NURSE ---
Addendum entered by Kelly Danielle RN 12/20/23 23:10: pt resting quietly in bed, allowed to sleep, respirations even and non-labored. Camera in room Original Note: Pt presenting with increased agitation, attempting to bite, spit, kick and punch at staff while tryinng to get out of bed. No able to take PO melatonin or xyprexa. Provider made aware, order for IM xyprexa order, given per JUN. Pt tolerated well.
[2023-12-21] MEDS: Ampicillin Sodium/Sulbactam Na 3 GM in 0.9 % Sodium Chloride 100 ML IV ×2 (00:10→05:29)
[2023-12-21 04:00] VITALS: BP 163/89; PULSE 76; RESP 20; TEMP 36; O2SAT 94
[2023-12-21] MEDS: OLANZapine 10 MG VIAL IM (04:18)
[2023-12-21 08:20] LABS: Anion Gap 12 (12-20); Blood Urea Nitrogen 15 mg/dL (9-16); Calcium 8.7 mg/dL (8.4-10.2); Carbon Dioxide 26 mmol/L (22-29); Chloride 107 mmol/L (96-108); Creatinine Clr Calc Pharmacy 47.9; Estimated Glomerular Filt Rate > 60; Glucose Random 95 mg/dL (60-115); Potassium 3.2 mmol/L (3.3-5.1); Sodium 142 mmol/L (135-145)
--- NOTE | 2023-12-21 08:28 | PC.NURSE ---
K LEVEL 3.2 Dr. Sinha notified
--- NOTE | 2023-12-21 08:58 | P.PNIM_ITS ---
Subjective Subjective Date of Service: 12/21/23 Interval History: Seen in follow up for breakthrough seizures, aspiration pneumonia Interval history:still confused, difficult to understand, Physical Exam 2 Vital Signs: Vital Signs: Last Vital Signs Temp 96.8 F 12/21/23 04:00 Pulse 76 12/21/23 04:00 Resp 20 12/21/23 04:00 BP 163/89 H 12/21/23 04:00 Pulse Ox 94 12/21/23 04:00 O2 Del Method Room Air 12/21/23 04:00 BMI result Body Mass Index 18.5 Constitutional - alert but not oriented, Eyes - PERRLA, EOMI Cardiovascular - S1S2, RRR, No edema Respiratory - Normal lung expansion, Normal respiratory effort, No respiratory distress, bilateral lower lobe crackles Gastrointestinal - NT / ND; +BS; No rebound or guarding Extremities - no calf tenderness bilaterally, no swelling Skin - Warm/Dry Neurological - Alert, mumbling barely audible but states name and place, disoriented to time. No tremors Objective Data Active Medications Acetaminophen (Acetaminophen Supp 650 Mg Supp.Rect) 650 mg [place] Q4H PRN PRN Reason: fever, h/a, mild pain Last Admin: 12/19/23 14:52 Dose: 650 mg Documented By: RAUL Al Hydroxide/Mg Hydroxide (Magnesium Hydrox/Alum Hydrox 30 Ml Oral.Susp) 30 ml PO Q6H PRN PRN Reason: Heartburn/Nausea Amlodipine Besylate (Amlodipine Besylate 10 Mg Tablet) 10 mg PO DAILY [facility]; Protocol Last Admin: 12/20/23 10:33 Dose: 10 mg Documented By: RAJINDER Aspirin (Aspirin 81 Mg Tab.Chew) 81 mg PO DAILY [facility] Last Admin: 12/20/23 10:31 Dose: 81 mg Documented By: RAJINDER Atorvastatin Calcium (Atorvastatin Calcium 20 Mg Tablet) 20 mg PO BEDTIME [facility] Last Admin: 12/20/23 19:22 Dose: 20 mg Documented By: LIGIA Bethanechol Chloride (Bethanechol Chloride 25 Mg Tablet) 25 mg PO TID [facility] Last Admin: 12/20/23 19:21 Dose: 25 mg Documented By: LIGIA Calcium Carbonate (Calcium Carbonate 750 Mg Tab.Chew) 750 mg PO Q4H PRN PRN Reason: Heartburn Clopidogrel Bisulfate (Clopidogrel Bisulfate 75 Mg Tablet) 75 mg PO DAILY [facility] Last Admin: 12/20/23 10:32 Dose: 75 mg Documented By: RAJINDER Enoxaparin Sodium (Enoxaparin Sodium 40 Mg/0.4 Ml Syringe) 40 mg SUBCUT Q24H [facility] Last Admin: 12/20/23 17:24 Dose: 40 mg Documented By: RAJINDER Finasteride (Finasteride 5 Mg Tablet) 5 mg PO DAILY [facility] Last Admin: 12/20/23 10:34 Dose: 5 mg Documented By: RAJINDER Ampicillin Sodium/Sulbactam (Sodium 3 gm/ Sodium Chloride) 100 mls @ 200 mls/hr IV Q6H [facility] Last Infusion: 12/21/23 05:59 Dose: Infused Documented By: LIGIA Ibuprofen (Ibuprofen 600 Mg Tablet) 600 mg PO Q6H PRN PRN Reason: Fever >100.4 Last Admin: 12/19/23 18:31 Dose: 600 mg Documented By: RAUL Lactulose (Lactulose 20 Gm/30 Ml Solution) 20 gm PO DAILY [facility] Last Admin: 12/20/23 10:35 Dose: 20 gm Documented By: RAJINDER Magnesium Hydroxide (Milk Of Magnesia 30 Ml Oral.Susp) 30 ml PO DAILY PRN PRN Reason: Constipation Melatonin (Melatonin 3 Mg Tablet) 6 mg PO BEDTIME PRN PRN Reason: Insomnia Metoprolol Succinate (Metoprolol Succinate Er 25 Mg Tab.Er.24h) 25 mg PO DAILY [facility]; Protocol Last Admin: 12/20/23 10:30 Dose: 25 mg Documented By: RAJINDER Mirtazapine (Mirtazapine 30 Mg Tablet) 30 mg PO BEDTIME [facility] Last Admin: 12/20/23 19:22 Dose: 30 mg Documented By: LIGIA Olanzapine (Olanzapine Odt 10 Mg Tab.Rapdis) 5 mg TRANSLINGU BID PRN PRN Reason: agitation Last Admin: 12/20/23 10:36 Dose: 5 mg Documented By: RAJINDER Olanzapine (Olanzapine Odt 10 Mg Tab.Rapdis) 10 mg TRANSLINGU DAILY@1800 [facility] Last Admin: 12/20/23 17:24 Dose: 10 mg Documented By: RAJINDER Omeprazole (Omeprazole 20 Mg Capsule.Dr) 20 mg PO DAILY@0630 [facility] Last Admin: 12/21/23 05:29 Dose: Not Given Documented By: ANTOIC Non-Admin Reason: Patient Refused Phenytoin (Phenytoin Oral Susp 100 Mg/4 Ml Oral.Susp) 100 mg PO TID [facility] Last Admin: 12/20/23 19:21 Dose: 100 mg Documented By: LIGIA Sodium Chloride (0.9 % Sodium Chloride Flush 3 Ml Syringe) 3 ml IVFLUSH QSHIFT [facility] Last Admin: 12/20/23 19:29 Dose: 3 ml Documented By: LIGIA Tamsulosin HCl (Tamsulosin Hcl 0.4 Mg Capsule) 0.4 mg PO BEDTIME [facility] Last Admin: 12/20/23 19:21 Dose: 0.4 mg Documented By: LIGIA Labs 12/19/23 05:26 12/21/23 07:51 Labs: Laboratory Results - last 24 hr 12/21/23 07:51 Anion Gap 12 Estim Creat Clear Calc 47.9 Estimated GFR > 60 Random Glucose 95 Calcium 8.7 Microbiology Microbiology Results: Microbiology 12/18/23 19:54 Blood Culture - Preliminary Blood - Venous No growth after 48 hours. 12/18/23 19:54 Blood Culture - Preliminary Blood - Venous No growth after 48 hours. Assessment and Plan (1) Aspiration into respiratory tract: Status: Acute (2) Delirium: Status: Acute Plan 83-year-old male with pertinent history of mood disorder, seizure disorder, hypertension, mixed hyperlipidemia, carotid stenosis on DAPT initially admitted to hospitalist service due to acute encephalopathy thought to be secondary to breakthrough partial seizure from [facility]. Had been discharged to geriatric psychiatry now being admitted back to med surg due to early aspiration pneumonia #Acute metabolic encephalopathy d/t aspiration -eeg 12/05 c/w encephalopathy, repeat reading pending #Aspiration pneumonia -CXR negative, but witnessed aspiration and fevers. No leukocytosis, hypoxia. No sepsis -IV unasyn 3g i8u--earufd to Augmentin today -Seen by [employer]S [employer]ENT[employer]IER- pureed diet, thin liquids with pills crushed in puree. DC IVF -aspiration precautions -Follow cbc #Partial seizure disorder -seizure precautions -?breakthrough seizures given recent med changes noted overnight. Recently started on lamictal 12/15 after keppra dc (agitation) then Depakote dc (elevated ammonia). Unlikely to be therapeutic -load with dilantin, continue 100mg TID, stop lamictal per neuro -eeg pending # hypertension- - noravasc and metoprolol # carotid stenosis -continue aspirin/Plavix # unspecified dementia with behavioral disturbance -continue mood stabilizers/antipsychotics as recommended by psychiatry -psychiatry consult # chronic constipation - lactulose daily since depakote stopped and ammonia normal DVT prophylaxis-Lovenox Full code Patient requires ongoing inpatient stay due to aspiration pneumonia, encephalopathy, still febrile on iv abx. Once afebrile with improvement in mental status will require care team assessment for return to [facility] Quality Stroke Does the patient have a stroke diagnosis?: No VTE Prior VTE?: No VTE Risk Level:: Medical - moderate - high VTE Device Contraindication: Treatment Not Indicated VTE Drug Contraindication: N/A - Med Ordered
[2023-12-21 09:30] VITALS: BP 127/75; PULSE 81; RESP 20; TEMP 36.5; O2SAT 94
[2023-12-21] MEDS: 0.9 % Sodium Chloride Flush 3 ML SYRINGE IVFLUSH ×3 (09:33→20:05)
[2023-12-21] MEDS: Potassium Chloride Packet 20 MEQ PACKET 40 MEQ PO (09:33)
[2023-12-21] MEDS: Phenytoin Oral Susp 100 MG/4 ML ORAL.SUSP PO ×3 (09:37→20:04)
[2023-12-21] MEDS: amLODIPine Besylate 10 MG TABLET PO (09:37)
[2023-12-21] MEDS: Metoprolol Succinate ER 25 MG TAB.ER.24H PO (09:38)
[2023-12-21] MEDS: Bethanechol Chloride 25 MG TABLET PO ×3 (09:38→20:05)
[2023-12-21] MEDS: Clopidogrel Bisulfate 75 MG TABLET PO (09:39)
[2023-12-21] MEDS: Amoxicillin/Potassium Clav 875 MG TABLET PO ×2 (09:39→20:05)
[2023-12-21] MEDS: Finasteride 5 MG TABLET PO (09:39)
[2023-12-21] MEDS: Lactulose 20 GM/30 ML SOLUTION PO (09:39)
[2023-12-21] MEDS: Aspirin 81 MG TAB.CHEW PO (09:39)
--- NOTE | 2023-12-21 10:27 | MHC.SL.SWA ---
Speech Pathologist Impression: Risk of Aspiration Due to: Dysphasia Diet Status: Recommend continue on Puree (NDD1) with THIN liquids, pills crushed in puree. Liquid Consistency and Strategies for Safe Swallow: Liquid Intake Recommendation: Thin Liquid Intake Strategies: Small Sips Solid Food Consistency: Dietary Recommendations: Pureed (NDD1) Additional Modifications to Solid Foods: Patient requires 1-1 feeding. Add sauces/gravies to puree and blend well. Straw o.k. for liquids. Oral Medication Intake: Crushed with Puree Please contact the pharmacy regarding appropriate crushable or liquid drug formulations that are available whenever modified delivery is recommended. Compensatory Strategies and Precautions to be Taken for Safe Swallow: Sitting Upright (90 deg) Small Bites and Sips Alternate Liquids/Solids Rate of Ingestion Change Supervision While Eating and Drinking for Safe Swallow: Total Assistance (1:1) Foods to Avoid: Swallowing Recommended Treatments: Compens. Strategy Educat. Recommendation for Speech: Inpatient Speech Therapy Comment: Patient seen this morning at breakfast, expressed interest in having food which was on tray at bedside. Head of bed was adjusted to 90 Degrees, patient throughout meal was fiddling with sheet/picking at air, likely visually hallucinating, and making random, incoherent comments. However patient was cooperative and calm throughout, accepting being fed, not initiating with any encouragement to self feed. Patient given Ensure by straw, able to propel liquid with straw and noted timely swallow of bolus, no clinical signs of aspiration. Patient took bites of puree (tongan toast and sausage), occasionally miscued/closed teeth on presentation of spoon, but mostly stripped spoon, produced timely oral and pharyngeal phase. Patient stated tastes good to the food. Patient appears to be on appropriate diet, continues to need 1-1 feeding at all meals. Recommend continue on Puree (NDD1) with THIN liquids, pills crushed in puree. PASTORAL ASSISTANT will continue to follow, upgrade diet if warranted. Frequency/Duration: Date Range for Service Req: Timeline to reassess: Telephone Ad Taker Clinican/Clinical Fellow: No Supervisory Statement: I have reviewed and agree with the student/clinical fellow's documentation: N/A Speech Language Pathologist: Dorinda Chairez M.A., CCC-PASTORAL ASSISTANT
--- NOTE | 2023-12-21 11:51 | P.CDIM_ITS ---
PROVIDER RESPONSE TEXT: To clarify, the appropriate diagnosis supported by the clinical indicators: Underweight QUERY TEXT: PHYSICIAN'S DOCUMENTATION REQUEST Date of Query: 12/21/2023 11:15 AM EDT Patient Name: Artemio Gallego Admit Date: 12/18/2023 Dear Anjel Sinha MD, A review of the medical record indicates additional documentation may be needed. Please review below and update the documentation accordingly. Clinical Indicators: BMI 18.5 55.2kg 5ft 8in If possible, please provide an associated diagnosis related to the abnormal BMI, such as: Underweight Weight loss Other (explain) Clinically unable to determine (explain) Thank you, Ileana Albright, CCS, CDIS Use of terms such as suspected, likely, concern for, or probable (associated with a specific diagnosi s that is being evaluated, monitored, or treated as if it exists) are acceptable and can be coded in the inpatient se tting, when documented at the time of discharge. Please use your independent medical judgment in providing your response. THIS QUERY IS PART OF THE PERMANENT MEDICAL RECORD
--- NOTE | 2023-12-21 12:21 | PM.PSYCN ---
History of Present Illness Date of Service: 12/21/2023 Chief Complaint: aspriration pneumonia, acute metabolic encephalopa Requesting physician: Anjel Sinha Discussed with referring provider: Yes Sources of Information: patient interviewed, chart reviewed and crisis/core team assessment reviewed HPI Narrative: Interim Hx: pt continues to present as delirious, no clear etiology as this point, treated for suspected aspiration pneumonia and UTI. He was seen by neurology started on phenytoin 100mg TID. Pt seen in room, mumbling unintelligible words, very different from when he was first admitted to psych unit. He is not able to tell where he is, or situation or months. He is seen grabbing things that are not there. He also seems somnolent. Met with , Kiana, discussed current presentation consistent with delirium, difficult to assess at this point underlying dementia (which he does have). Discussed with attending Dr. Sinha recommendation of neurology to consider LP if encephalophathy not resolved, which has no and egg shows generalized slowing. will d/c remeron, olanzapine- with effort to rule out anticholinergic/medication related prolonged delirium given that there have been no improvement in mentation for past 2 weeks, in fact it appears worsening. Past Psychiatric History: IP: Denies OP: Denies [facility] Medical History BPH (benign prostatic hyperplasia) Mixed hyperlipidemia Hypertension Mood disorder Seizure disorder Family History: none Social History: Pt has been for 52 years. He worked for [employer]. He lives with . He has an adult daughter. Trauma History: none Diagnostics Vital Signs (24Hr): Vital Signs - 24 hr 12/20/23 16:10 12/20/23 19:47 12/21/23 04:00 Temperature 96.9 F 98.1 F 96.8 F Pulse Rate 73 84 76 Respiratory Rate 12 18 20 Blood Pressure 146/85 H 154/63 H 163/89 H Pulse Oximetry 93 93 94 Oxygen Delivery Method Room Air Room Air Room Air 12/21/23 09:30 Temperature 97.7 F Pulse Rate 81 Respiratory Rate 20 Blood Pressure 127/75 Pulse Oximetry 94 Oxygen Delivery Method Room Air BMI result Body Mass Index 18.5 Labs 12/19/23 05:26 12/21/23 07:51 Labs: Laboratory Results - last 48 hr 12/21/23 07:51 Sodium 142 Potassium 3.2 L Chloride 107 Carbon Dioxide 26 Anion Gap 12 BUN 15 Creatinine 0.88 Estim Creat Clear Calc 47.9 Estimated GFR > 60 Random Glucose 95 Calcium 8.7 Medications Medications Current Medications Acetaminophen (Acetaminophen Supp 650 Mg Supp.Rect) 650 mg [place] Q4H PRN PRN Reason: fever, h/a, mild pain Last Admin: 12/19/23 14:52 Dose: 650 mg Al Hydroxide/Mg Hydroxide (Magnesium Hydrox/Alum Hydrox 30 Ml Oral.Susp) 30 ml PO Q6H PRN PRN Reason: Heartburn/Nausea Amlodipine Besylate (Amlodipine Besylate 10 Mg Tablet) 10 mg PO DAILY [facility]; Protocol Last Admin: 12/21/23 09:37 Dose: 10 mg Amoxicillin/Clavulanate Potassium (Amoxicillin/Potassium Clav 875 Mg Tablet) 875 mg PO Q12H [facility] Last Admin: 12/21/23 09:39 Dose: 875 mg Aspirin (Aspirin 81 Mg Tab.Chew) 81 mg PO DAILY [facility] Last Admin: 12/21/23 09:39 Dose: 81 mg Atorvastatin Calcium (Atorvastatin Calcium 20 Mg Tablet) 20 mg PO BEDTIME [facility] Last Admin: 12/20/23 19:22 Dose: 20 mg Bethanechol Chloride (Bethanechol Chloride 25 Mg Tablet) 25 mg PO TID [facility] Last Admin: 12/21/23 09:38 Dose: 25 mg Calcium Carbonate (Calcium Carbonate 750 Mg Tab.Chew) 750 mg PO Q4H PRN PRN Reason: Heartburn Clopidogrel Bisulfate (Clopidogrel Bisulfate 75 Mg Tablet) 75 mg PO DAILY [facility] Last Admin: 12/21/23 09:39 Dose: 75 mg Enoxaparin Sodium (Enoxaparin Sodium 40 Mg/0.4 Ml Syringe) 40 mg SUBCUT Q24H [facility] Last Admin: 12/20/23 17:24 Dose: 40 mg Finasteride (Finasteride 5 Mg Tablet) 5 mg PO DAILY [facility] Last Admin: 12/21/23 09:39 Dose: 5 mg Ibuprofen (Ibuprofen 600 Mg Tablet) 600 mg PO Q6H PRN PRN Reason: Fever >100.4 Last Admin: 12/19/23 18:31 Dose: 600 mg Lactulose (Lactulose 20 Gm/30 Ml Solution) 20 gm PO DAILY [facility] Last Admin: 12/21/23 09:39 Dose: 20 gm Magnesium Hydroxide (Milk Of Magnesia 30 Ml Oral.Susp) 30 ml PO DAILY PRN PRN Reason: Constipation Melatonin (Melatonin 3 Mg Tablet) 6 mg PO BEDTIME PRN PRN Reason: Insomnia Metoprolol Succinate (Metoprolol Succinate Er 25 Mg Tab.Er.24h) 25 mg PO DAILY [facility]; Protocol Last Admin: 12/21/23 09:38 Dose: 25 mg Mirtazapine (Mirtazapine 30 Mg Tablet) 30 mg PO BEDTIME [facility] Last Admin: 12/20/23 19:22 Dose: 30 mg Olanzapine (Olanzapine Odt 10 Mg Tab.Rapdis) 5 mg TRANSLINGU BID PRN PRN Reason: agitation Last Admin: 12/20/23 10:36 Dose: 5 mg Olanzapine (Olanzapine Odt 10 Mg Tab.Rapdis) 10 mg TRANSLINGU DAILY@1800 [facility] Last Admin: 12/20/23 17:24 Dose: 10 mg Omeprazole (Omeprazole 20 Mg Capsule.Dr) 20 mg PO DAILY@0630 [facility] Last Admin: 12/21/23 05:29 Dose: Not Given Phenytoin (Phenytoin Oral Susp 100 Mg/4 Ml Oral.Susp) 100 mg PO TID [facility] Last Admin: 12/21/23 09:37 Dose: 100 mg Sodium Chloride (0.9 % Sodium Chloride Flush 3 Ml Syringe) 3 ml IVFLUSH QSHIFT [facility] Last Admin: 12/21/23 09:33 Dose: 3 ml Tamsulosin HCl (Tamsulosin Hcl 0.4 Mg Capsule) 0.4 mg PO BEDTIME [facility] Last Admin: 12/20/23 19:21 Dose: 0.4 mg Allergies Allergies Allergy/AdvReac Type Severity Reaction Status Date / Time No Known Allergies Allergy Verified 12/06/23 18:16 Assessment & Plan Assessment & Plan (1) Delirium: Status: Acute Code(s): R41.0 - Disorientation, unspecified Plan Mr. Gallego is a 83 year-old male who was brought initially to ED due to pt attempting to kill , also reporting SI and severe depression. He was admitted to [facility] but sent to [facility] due to lethargy and thought that he may have been having a seizure. He does have recent hx of seizures. Head CT shows significant atrophy and left frontal side atrophy. He was admitted to [facility] psych after medically cleared. At that time he was able to verbalize understanding as to why he was being transferred to the unit, including depression, suicidality and homicidal attempt to as he thought she would stop him from killing himself. At the time there was suspicion of underlying psychotic process along with depressed mood related to dementing process. However, pt then presented as increasingly more confused while on the [facility] psych unit, followed by UTI, increased ammonia s/s to depakote, then aspiration pneumonia. All of which have been treated, but pt/'s mentation appears to continue to worsen and presents even more confused, eeg have shown generalized slowing, seen by neurology twice, last time on 12/18 when neurology recommended if mentation with no improvement to consider LP. On 12/20, Met with , Kiana, discussed current presentation consistent with delirium, difficult to assess at this point underlying dementia (which he does have). 1. Discussed with attending Dr. Sinha recommendation of neurology to consider LP if encephalophathy not resolved, which has no and egg shows generalized slowing. Pt on anicoagulation and would need to be off for 72hrs prior to considering LP 2. I will d/c remeron, olanzapine- with effort to rule out anticholinergic/medication related prolonged delirium given that there have been no improvement in mentation for past 2 weeks, in fact it appears to be worsening. use low doses of haldol 2mg q6h prn agitation, avoid over medication with benzodiazepines. Total time managing care of this patient today ____ minutes.
--- NOTE | 2023-12-21 12:34 | MHC.CLN ---
F/U DIET=REGULAR, PUREE CONSISTENCY. APPEARS TO BE EATING WELL. ENSURE BID TO PROMOTE NUTRITIONAL INTAKE. SUPPLEMENT PROVIDES 700 KCALS, 40 G PROTEIN. PATIENT IS UNDERWEIGHT BUT DOES NOT APPEAR MALNOURISHED. SUSAN=12. NO SKIN ISSUES NOTED. FOLLOW FOR DIET TOLERANCE AND INTAKE.
--- NOTE | 2023-12-21 14:52 | MHC.CM.PN ---
PER ROUNDS PT NOT MEDICALLY CLEAR FOR DC MET WITH TODAY SHE EXPECTED TO HAVE A MEETING WITH WILLEM FROM PSYCH AND WAS WAITING IN PTS ROOM FOR DARLENE ARRIVAL WAS GOING TO CALL WILLEM
[2023-12-21 15:56] VITALS: BP 156/82; PULSE 63; RESP 20
[2023-12-21 16:00] VITALS: PULSE 67; RESP 18; TEMP 36.4; O2SAT 92
[2023-12-21] MEDS: OLANZapine ODT 10 MG TAB.RAPDIS TRANSLINGU (16:02)
[2023-12-21] MEDS: Enoxaparin Sodium 40 MG/0.4 ML SYRINGE SUBCUT (16:02)
[2023-12-21 20:00] VITALS: BP 126/76; PULSE 66; RESP 16; TEMP 37; O2SAT 94
[2023-12-21] MEDS: Tamsulosin HCL 0.4 MG CAPSULE PO (20:05)
[2023-12-21] MEDS: Atorvastatin Calcium 20 MG TABLET PO (20:05)
[2023-12-21] MEDS: HaloperidoL 1 MG TABLET 2 MG PO (23:27)
[2023-12-22] VITALS (7 sets, daily range): BP systolic 130–170; BP diastolic 70–90; PULSE 62–80; RESP 15–20; TEMP 36.8–37.7; O2SAT 92–96
[2023-12-22] MEDS: OLANZapine ODT 10 MG TAB.RAPDIS 5 MG TRANSLINGU ×2 (01:42→22:41)
[2023-12-22] MEDS: Melatonin 3 MG TABLET 6 MG PO ×2 (01:43→22:41)
[2023-12-22] MEDS: Omeprazole 20 MG CAPSULE.DR PO (05:36)
--- NOTE | 2023-12-22 09:31 | HO.PM.IMPN ---
Subjective Subjective Date of Service: 12/22/23 Interval History: Seen in follow up for breakthrough seizures, aspiration pneumonia Interval history:he is much better today, Physical Exam Vital Signs: Vital Signs: Last Vital Signs Temp 98.3 F 12/22/23 08:00 Pulse 78 12/22/23 08:00 Resp 16 12/22/23 08:00 BP 170/90 H 12/22/23 08:00 Pulse Ox 96 12/22/23 08:00 O2 Del Method Room Air 12/22/23 08:00 BMI result Body Mass Index 18.5 Constitutional - AxO, 2 self, place Cardiovascular - S1S2, RRR, No edema Respiratory - Normal lung expansion, Normal respiratory effort, No respiratory distress, bilateral lower lobe crackles Gastrointestinal - NT / ND; +BS; No rebound or guarding Extremities - no calf tenderness bilaterally, no swelling Skin - Warm/Dry Neurological - No focal deficit Objective Data Active Medications Acetaminophen (Acetaminophen Supp 650 Mg Supp.Rect) 650 mg [place] Q4H PRN PRN Reason: fever, h/a, mild pain Last Admin: 12/19/23 14:52 Dose: 650 mg Documented By: RAUL Al Hydroxide/Mg Hydroxide (Magnesium Hydrox/Alum Hydrox 30 Ml Oral.Susp) 30 ml PO Q6H PRN PRN Reason: Heartburn/Nausea Amlodipine Besylate (Amlodipine Besylate 10 Mg Tablet) 10 mg PO DAILY [facility]; Protocol Last Admin: 12/21/23 09:37 Dose: 10 mg Documented By: RAJINDER Amoxicillin/Clavulanate Potassium (Amoxicillin/Potassium Clav 875 Mg Tablet) 875 mg PO Q12H [facility] Last Admin: 12/21/23 20:05 Dose: 875 mg Documented By: SANGEETHA Aspirin (Aspirin 81 Mg Tab.Chew) 81 mg PO DAILY [facility] Last Admin: 12/21/23 09:39 Dose: 81 mg Documented By: RAJINDER Atorvastatin Calcium (Atorvastatin Calcium 20 Mg Tablet) 20 mg PO BEDTIME [facility] Last Admin: 12/21/23 20:05 Dose: 20 mg Documented By: SANGEETHA Bethanechol Chloride (Bethanechol Chloride 25 Mg Tablet) 25 mg PO TID [facility] Last Admin: 12/21/23 20:05 Dose: 25 mg Documented By: SANGEETHA Calcium Carbonate (Calcium Carbonate 750 Mg Tab.Chew) 750 mg PO Q4H PRN PRN Reason: Heartburn Clopidogrel Bisulfate (Clopidogrel Bisulfate 75 Mg Tablet) 75 mg PO DAILY [facility] Last Admin: 12/21/23 09:39 Dose: 75 mg Documented By: RAJINDER Enoxaparin Sodium (Enoxaparin Sodium 40 Mg/0.4 Ml Syringe) 40 mg SUBCUT Q24H [facility] Last Admin: 12/21/23 16:02 Dose: 40 mg Documented By: RAJINDER Finasteride (Finasteride 5 Mg Tablet) 5 mg PO DAILY [facility] Last Admin: 12/21/23 09:39 Dose: 5 mg Documented By: RAJINDER Haloperidol (Haloperidol 1 Mg Tablet) 2 mg PO Q6H PRN PRN Reason: agitation Last Admin: 12/21/23 23:27 Dose: 2 mg Documented By: SANGEETHA Ibuprofen (Ibuprofen 600 Mg Tablet) 600 mg PO Q6H PRN PRN Reason: Fever >100.4 Last Admin: 12/19/23 18:31 Dose: 600 mg Documented By: RAUL Magnesium Hydroxide (Milk Of Magnesia 30 Ml Oral.Susp) 30 ml PO DAILY PRN PRN Reason: Constipation Melatonin (Melatonin 3 Mg Tablet) 6 mg PO BEDTIME PRN PRN Reason: Insomnia Last Admin: 12/22/23 01:43 Dose: 6 mg Documented By: SANGEETHA Metoprolol Succinate (Metoprolol Succinate Er 25 Mg Tab.Er.24h) 25 mg PO DAILY [facility]; Protocol Last Admin: 12/21/23 09:38 Dose: 25 mg Documented By: RAJINDER Olanzapine (Olanzapine Odt 10 Mg Tab.Rapdis) 5 mg TRANSLINGU BID PRN PRN Reason: agitation Last Admin: 12/22/23 01:42 Dose: 5 mg Documented By: SANGEETHA Omeprazole (Omeprazole 20 Mg Capsule.Dr) 20 mg PO DAILY@0630 [facility] Last Admin: 12/22/23 05:36 Dose: 20 mg Documented By: SANGEETHA Phenytoin (Phenytoin Oral Susp 100 Mg/4 Ml Oral.Susp) 100 mg PO TID [facility] Last Admin: 12/21/23 20:04 Dose: 100 mg Documented By: SANGEETHA Sodium Chloride (0.9 % Sodium Chloride Flush 3 Ml Syringe) 3 ml IVFLUSH QSHIFT [facility] Last Admin: 12/21/23 20:05 Dose: 3 ml Documented By: SANGEETHA Tamsulosin HCl (Tamsulosin Hcl 0.4 Mg Capsule) 0.4 mg PO BEDTIME [facility] Last Admin: 12/21/23 20:05 Dose: 0.4 mg Documented By: SANGEETHA Labs 12/19/23 05:26 12/21/23 07:51 Assessment and Plan (1) Aspiration into respiratory tract: Status: Acute (2) Delirium: Status: Acute Plan 83-year-old male with pertinent history of mood disorder, seizure disorder, hypertension, mixed hyperlipidemia, carotid stenosis on DAPT initially admitted to hospitalist service due to acute encephalopathy thought to be secondary to breakthrough partial seizure from [facility]. Had been discharged to geriatric psychiatry now being admitted back to med surg due to early aspiration pneumonia #Acute metabolic encephalopathy d/t aspiration -eeg 12/20, no seizure #Aspiration pneumonia -CXR negative, but witnessed aspiration and fevers. No leukocytosis, hypoxia. No sepsis -IV unasyn 3g [id number] to Augmentin today -Seen by [employer]- pureed diet, thin liquids with pills crushed in puree. DC IVF -aspiration precautions -Follow cbc #Partial seizure disorder -eeg no seizure -seizure precautions -?breakthrough seizures given recent med changes noted overnight. Recently started on lamictal 12/15 after keppra dc (agitation) then Depakote dc (elevated ammonia). Unlikely to be therapeutic -load with Dilantin, continue 100mg TID, stop lamictal per neuro # hypertension- - noravasc and metoprolol # carotid stenosis -continue aspirin/Plavix # unspecified dementia with behavioral disturbance -continue mood stabilizers/antipsychotics as recommended by psychiatry -psychiatry consult # chronic constipation - lactulose daily since depakote stopped and ammonia normal DVT prophylaxis-Lovenox Full code Patient requires ongoing inpatient stay due to aspiration pneumonia, encephalopathy, still febrile on iv abx. Once afebrile with improvement in mental status will require care team assessment for return to [facility] psych Quality Stroke Does the patient have a stroke diagnosis?: No VTE Prior VTE?: No VTE Risk Level:: Medical - moderate - high VTE Device Contraindication: Treatment Not Indicated VTE Drug Contraindication: N/A - Med Ordered
[2023-12-22] MEDS: Aspirin 81 MG TAB.CHEW PO (09:44)
[2023-12-22] MEDS: amLODIPine Besylate 10 MG TABLET PO (09:44)
[2023-12-22] MEDS: Clopidogrel Bisulfate 75 MG TABLET PO (09:44)
[2023-12-22] MEDS: Amoxicillin/Potassium Clav 875 MG TABLET PO ×2 (09:45→20:10)
[2023-12-22] MEDS: Phenytoin Oral Susp 100 MG/4 ML ORAL.SUSP PO ×3 (09:45→20:11)
[2023-12-22] MEDS: Metoprolol Succinate ER 25 MG TAB.ER.24H PO (09:45)
[2023-12-22] MEDS: Bethanechol Chloride 25 MG TABLET PO ×3 (09:45→20:10)
[2023-12-22] MEDS: 0.9 % Sodium Chloride Flush 3 ML SYRINGE IVFLUSH ×3 (09:46→20:11)
[2023-12-22 10:10] LABS: Anion Gap 15 (12-20); Blood Urea Nitrogen 20 mg/dL (9-16); Calcium 9.2 mg/dL (8.4-10.2); Carbon Dioxide 24 mmol/L (22-29); Chloride 104 mmol/L (96-108); Creatinine Clr Calc Pharmacy 37.9; Estimated Glomerular Filt Rate > 60; Glucose Random 257 mg/dL (60-115); Potassium 3.4 mmol/L (3.3-5.1); Sodium 140 mmol/L (135-145)
[2023-12-22 10:22] LABS: Hematocrit 38.2 % (42.0-52.0); Hemoglobin 13.1 g/dl (14.0-18.0); Mean Corpuscular HGB Conc 34.3 g/dl (31.0-36.0); Mean Corpuscular Hemoglobin 33.5 pg (27.0-33.0); Mean Corpuscular Volume 97.7 fL (80.0-98.0); Mean Platelet Volume 10.6 fL (9.4-12.4); Platelet Count 354 X10*3/uL (160-400); Red Blood Count 3.91 X10*6/uL (4.60-5.80); Red Cell Distribution Width 13.2 % (11.0-16.0); White Blood Count 12.7 X10*3/uL (4.8-10.8)
[2023-12-22] MEDS: Finasteride 5 MG TABLET PO (15:19)
[2023-12-22] MEDS: Enoxaparin Sodium 40 MG/0.4 ML SYRINGE SUBCUT (18:23)
--- NOTE | 2023-12-22 19:45 | PC.NURSE ---
pt's 4pm vitals with slight elevation in temp to 99.9. rechecked x3 and was 99.3 max.via temporal artery scan. Pt denies complaint.
[2023-12-22] MEDS: Tamsulosin HCL 0.4 MG CAPSULE PO (20:10)
[2023-12-22] MEDS: Atorvastatin Calcium 20 MG TABLET PO (20:10)
[2023-12-23 04:00] VITALS: BP 128/68; PULSE 61; RESP 16; TEMP 36.6; O2SAT 92
[2023-12-23] MEDS: Omeprazole 20 MG CAPSULE.DR PO (05:24)
[2023-12-23 08:00] VITALS: BP 175/90; PULSE 68; RESP 18; TEMP 36.5; O2SAT 96
[2023-12-23 08:43] VITALS: BP 142/70
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
[2023-12-23 09:35] VITALS: BP 142/70; PULSE 68
[2023-12-23] MEDS: amLODIPine Besylate 10 MG TABLET PO (09:35)
[2023-12-23] MEDS: Bethanechol Chloride 25 MG TABLET PO ×3 (09:35→20:08)
[2023-12-23] MEDS: Finasteride 5 MG TABLET PO (09:35)
[2023-12-23] MEDS: Phenytoin Oral Susp 100 MG/4 ML ORAL.SUSP PO ×3 (09:35→20:07)
[2023-12-23] MEDS: Metoprolol Succinate ER 25 MG TAB.ER.24H PO (09:35)
[2023-12-23] MEDS: Amoxicillin/Potassium Clav 875 MG TABLET PO ×2 (09:35→20:08)
[2023-12-23] MEDS: 0.9 % Sodium Chloride Flush 3 ML SYRINGE IVFLUSH ×3 (09:36→21:20)
[2023-12-23] MEDS: Aspirin 81 MG TAB.CHEW PO (09:36)
[2023-12-23] MEDS: Clopidogrel Bisulfate 75 MG TABLET PO (09:36)
[2023-12-23 10:06] LABS: Hematocrit 35.8 % (42.0-52.0); Hemoglobin 12.5 g/dl (14.0-18.0); Mean Corpuscular HGB Conc 34.9 g/dl (31.0-36.0); Mean Corpuscular Hemoglobin 33.9 pg (27.0-33.0); Mean Platelet Volume 10.1 fL (9.4-12.4); Platelet Count 338 X10*3/uL (160-400); Red Blood Count 3.69 X10*6/uL (4.60-5.80); Red Cell Distribution Width 13.2 % (11.0-16.0); White Blood Count 12.2 X10*3/uL (4.8-10.8)
[2023-12-23 10:39] LABS: Estimated Average Glucose 126 mg/dL; Hemoglobin A1C 138.8084 umol/L; Total Hemoglobin (HGBA1C) 3261.2178 umol/L
[2023-12-23] MEDS: OLANZapine ODT 10 MG TAB.RAPDIS 5 MG TRANSLINGU (12:23)
[2023-12-23] MEDS: HaloperidoL 1 MG TABLET 2 MG PO (14:09)
[2023-12-23 16:00] VITALS: BP 133/74; PULSE 81; RESP 18; TEMP 37.4; O2SAT 93
--- NOTE | 2023-12-23 16:07 | PC.NURSE ---
Pt called and updated by this journalists and other writers per MD note.
[2023-12-23] MEDS: Enoxaparin Sodium 40 MG/0.4 ML SYRINGE SUBCUT (18:01)
[2023-12-23 20:00] VITALS: BP 126/76; PULSE 87; RESP 15; TEMP 37.3; O2SAT 96
[2023-12-23] MEDS: Atorvastatin Calcium 20 MG TABLET PO (20:08)
[2023-12-23] MEDS: Tamsulosin HCL 0.4 MG CAPSULE PO (20:08)
[2023-12-23] MEDS: Melatonin 3 MG TABLET 6 MG PO (22:19)
[2023-12-24 03:20] VITALS: BP 134/74; PULSE 84; RESP 18; TEMP 37.3; O2SAT 92
[2023-12-24] MEDS: Omeprazole 20 MG CAPSULE.DR PO (05:20)
[2023-12-24 07:41] VITALS: BP 133/81; PULSE 68; RESP 16; TEMP 36.6; O2SAT 92
[2023-12-24 08:01] LABS: Hematocrit 35.8 % (42.0-52.0); Hemoglobin 12.3 g/dl (14.0-18.0); Mean Corpuscular HGB Conc 34.4 g/dl (31.0-36.0); Mean Corpuscular Hemoglobin 33.5 pg (27.0-33.0); Mean Corpuscular Volume 97.5 fL (80.0-98.0); Red Blood Count 3.67 X10*6/uL (4.60-5.80); White Blood Count 11.8 X10*3/uL (4.8-10.8)
[2023-12-24 08:02] LABS: Mean Platelet Volume 9.9 fL (9.4-12.4); Platelet Count 348 X10*3/uL (160-400); Red Cell Distribution Width 13.5 % (11.0-16.0)
[2023-12-24 08:22] LABS: Anion Gap 13 (12-20); Blood Urea Nitrogen 26 mg/dL (9-16); Calcium 9.1 mg/dL (8.4-10.2); Carbon Dioxide 28 mmol/L (22-29); Chloride 107 mmol/L (96-108); Creatinine Clr Calc Pharmacy 44.3; Estimated Glomerular Filt Rate > 60; Glucose Random 103 mg/dL (60-115); Potassium 3.4 mmol/L (3.3-5.1); Sodium 145 mmol/L (135-145)
[2023-12-24 08:38] VITALS: BP 156/84; PULSE 83
--- NOTE | 2023-12-24 09:21 | P.PNIM_ITS ---
Subjective Subjective Date of Service: 12/24/23 Interval History: He is more talkative but doesn't make any sense Physical Exam 2 Vital Signs: Vital Signs: Last Vital Signs Temp 97.8 F 12/24/23 07:41 Pulse 83 12/24/23 08:38 Resp 16 12/24/23 07:41 BP 156/84 H 12/24/23 08:38 Pulse Ox 92 12/24/23 07:41 O2 Del Method Room Air 12/24/23 07:41 O2 Flow Rate 2 12/24/23 03:20 BMI result Body Mass Index 18.5 General: alert, confused, says he's at [employer] Resp: CTA bilateral CVS: S1,S2,RRR GI: +BS, NT, no distention Skin: No rash Neuro: motor grossly intact Psych: appropriate affect Objective Data Active Medications Acetaminophen (Acetaminophen Supp 650 Mg Supp.Rect) 650 mg [place] Q4H PRN PRN Reason: fever, h/a, mild pain Last Admin: 12/19/23 14:52 Dose: 650 mg Documented By: RAUL Al Hydroxide/Mg Hydroxide (Magnesium Hydrox/Alum Hydrox 30 Ml Oral.Susp) 30 ml PO Q6H PRN PRN Reason: Heartburn/Nausea Amlodipine Besylate (Amlodipine Besylate 10 Mg Tablet) 10 mg PO DAILY [facility]; Protocol Last Admin: 12/23/23 09:35 Dose: 10 mg Documented By: ANTONIO Amoxicillin/Clavulanate Potassium (Amoxicillin/Potassium Clav 875 Mg Tablet) 875 mg PO Q12H [facility] Last Admin: 12/23/23 20:08 Dose: 875 mg Documented By: SANGEETHA Aspirin (Aspirin 81 Mg Tab.Chew) 81 mg PO DAILY [facility] Last Admin: 12/23/23 09:36 Dose: 81 mg Documented By: ANTONIO Atorvastatin Calcium (Atorvastatin Calcium 20 Mg Tablet) 20 mg PO BEDTIME [facility] Last Admin: 12/23/23 20:08 Dose: 20 mg Documented By: SANGEETHA Bethanechol Chloride (Bethanechol Chloride 25 Mg Tablet) 25 mg PO TID [facility] Last Admin: 12/23/23 20:08 Dose: 25 mg Documented By: SANGEETHA Calcium Carbonate (Calcium Carbonate 750 Mg Tab.Chew) 750 mg PO Q4H PRN PRN Reason: Heartburn Clopidogrel Bisulfate (Clopidogrel Bisulfate 75 Mg Tablet) 75 mg PO DAILY [facility] Last Admin: 12/23/23 09:36 Dose: 75 mg Documented By: ANTONIO Enoxaparin Sodium (Enoxaparin Sodium 40 Mg/0.4 Ml Syringe) 40 mg SUBCUT Q24H [facility] Last Admin: 12/23/23 18:01 Dose: 40 mg Documented By: ANTONIO Finasteride (Finasteride 5 Mg Tablet) 5 mg PO DAILY [facility] Last Admin: 12/23/23 09:35 Dose: 5 mg Documented By: ANTONIO Haloperidol (Haloperidol 1 Mg Tablet) 2 mg PO Q6H PRN PRN Reason: agitation Last Admin: 12/23/23 14:09 Dose: 2 mg Documented By: ANTONIO Ibuprofen (Ibuprofen 600 Mg Tablet) 600 mg PO Q6H PRN PRN Reason: Fever >100.4 Last Admin: 12/19/23 18:31 Dose: 600 mg Documented By: RAUL Magnesium Hydroxide (Milk Of Magnesia 30 Ml Oral.Susp) 30 ml PO DAILY PRN PRN Reason: Constipation Melatonin (Melatonin 3 Mg Tablet) 6 mg PO BEDTIME PRN PRN Reason: Insomnia Last Admin: 12/23/23 22:19 Dose: 6 mg Documented By: SANGEETHA Metoprolol Succinate (Metoprolol Succinate Er 25 Mg Tab.Er.24h) 25 mg PO DAILY [facility]; Protocol Last Admin: 12/23/23 09:35 Dose: 25 mg Documented By: ANTONIO Olanzapine (Olanzapine Odt 10 Mg Tab.Rapdis) 5 mg TRANSLINGU BID PRN PRN Reason: agitation Last Admin: 12/23/23 12:23 Dose: 5 mg Documented By: ANTONIO Omeprazole (Omeprazole 20 Mg Capsule.Dr) 20 mg PO DAILY@0630 [facility] Last Admin: 12/24/23 05:20 Dose: 20 mg Documented By: SANGEETHA Phenytoin (Phenytoin Oral Susp 100 Mg/4 Ml Oral.Susp) 100 mg PO TID [facility] Last Admin: 12/23/23 20:07 Dose: 100 mg Documented By: SANGEETHA Sodium Chloride (0.9 % Sodium Chloride Flush 3 Ml Syringe) 3 ml IVFLUSH QSHIFT [facility] Last Admin: 12/23/23 21:20 Dose: 3 ml Documented By: SANGEETHA Tamsulosin HCl (Tamsulosin Hcl 0.4 Mg Capsule) 0.4 mg PO BEDTIME [facility] Last Admin: 12/23/23 20:08 Dose: 0.4 mg Documented By: SANGEETHA Labs 12/24/23 07:52 12/24/23 07:52 Labs: Laboratory Results - last 24 hr 12/23/23 12/23/23 12/24/23 09:33 09:57 07:52 MCV 97.0 97.5 MCH 33.9 H 33.5 H MCHC 34.9 34.4 RDW 13.2 13.5 Plt Count 338 348 MPV 10.1 9.9 Absolute Nucleated RBC 0.000 0.000 Nucleated RBC % (auto) 0.0 0.0 Anion Gap 13 Estim Creat Clear Calc 44.3 Estimated GFR > 60 Random Glucose 103 Estimat Average Glucose 126 Hemoglobin A1c % 6.0 Calcium 9.1 Microbiology Microbiology Results: Microbiology 12/18/23 19:54 Blood Culture - Final Blood - Venous No growth after 5 days. 12/18/23 19:54 Blood Culture - Final Blood - Venous No growth after 5 days. Assessment and Plan (1) Aspiration into respiratory tract: Status: Acute (2) Delirium: Status: Acute Plan 83/F mood disorder, seizure disorder, hypertension, mixed hyperlipidemia, carotid stenosis on DAPT initially admitted to hospitalist service due to acute encephalopathy thought to be secondary to breakthrough partial seizure from [facility]. Had been discharged to geriatric psychiatry now being admitted back to [facility] surg due to early aspiration pneumonia #Acute metabolic encephalopathy d/t aspiration -eeg 12/20, no seizure -overall more coherent but remain confused #Aspiration pneumonia -CXR negative, but witnessed aspiration and fevers. No leukocytosis, hypoxia. No sepsis -IV unasyn 3g f3j--ceriyh to Augmentin 12/21, no hypoxia -Seen by BAG MACHINE TENDER- pureed diet, thin liquids with pills crushed in puree. -aspiration precautions -Follow cbc #Partial seizure disorder -eeg no seizure -seizure precautions -?breakthrough seizures given recent med changes noted overnight. Recently started on lamictal 12/15 after keppra dc (agitation) then Depakote dc (elevated ammonia). Unlikely to be therapeutic -loaded with Dilantin, continue 100mg TID, stop lamictal per neuro # hypertension - noravasc and metoprolol # carotid stenosis -continue aspirin/Plavix # unspecified dementia with behavioral disturbance -continue mood stabilizers/antipsychotics as recommended by psychiatry -psychiatry following # chronic constipation - lactulose daily since depakote stopped and ammonia normal DVT prophylaxis-Lovenox Full code Patient requires ongoing inpatient stay due to aspiration pneumonia, encephalopathy, still febrile on iv abx. Once afebrile with improvement in mental status will require care team assessment for return to [facility] attempted to reach , no answer, should have goals of care conversation Quality Stroke Does the patient have a stroke diagnosis?: No VTE Prior VTE?: No VTE Risk Level:: Medical - moderate - high VTE Device Contraindication: Treatment Not Indicated VTE Drug Contraindication: N/A - Med Ordered
[2023-12-24] MEDS: Aspirin 81 MG TAB.CHEW PO (09:33)
[2023-12-24] MEDS: Phenytoin Oral Susp 100 MG/4 ML ORAL.SUSP PO ×3 (09:33→21:15)
[2023-12-24] MEDS: Clopidogrel Bisulfate 75 MG TABLET PO (09:34)
[2023-12-24] MEDS: Bethanechol Chloride 25 MG TABLET PO ×3 (09:34→21:15)
[2023-12-24] MEDS: amLODIPine Besylate 10 MG TABLET PO (09:34)
[2023-12-24] MEDS: Amoxicillin/Potassium Clav 875 MG TABLET PO ×2 (09:34→21:15)
[2023-12-24 11:30] LABS: Glucose, Whole Blood 149 mg/dL (60-115)
--- NOTE | 2023-12-24 12:30 | MHC.SL.SWA ---
Speech Pathologist Impression: Risk of Aspiration Due to: Dysphasia Diet Status: Recommend UPGRADE diet to Ground/Mechanical (NDD2), continue on thin liquids, pills, where possibly, crushed in puree, but small pills can be given whole with puree. Liquid Consistency and Strategies for Safe Swallow: Liquid Intake Recommendation: Thin Liquid Intake Strategies: Small Sips Solid Food Consistency: Dietary Recommendations: Grnd/Mech Altered (NDD2) Additional Modifications to Solid Foods: Patient requires 1-1 feeding. Add sauces/gravies and blend well. Straw o.k. for liquids. Oral Medication Intake: Crushed with Puree Please contact the pharmacy regarding appropriate crushable or liquid drug formulations that are available whenever modified delivery is recommended. Compensatory Strategies and Precautions to be Taken for Safe Swallow: Sitting Upright (90 deg) Small Bites and Sips Alternate Liquids/Solids Rate of Ingestion Change Supervision While Eating and Drinking for Safe Swallow: Total Assistance (1:1) Foods to Avoid: Swallowing Recommended Treatments: Compens. Strategy Educat. Recommendation for Speech: Inpatient Speech Therapy Comment: RPatient seen at lunch and given trials for possible upgrade of diet. RN with question if pills that cannot be ground be given with puree. Patient was seated in chair beside bed, with SAS DEVELOPER ANALYST having started lunch at onset. Patient's affect presented as much improved today, quite cheerful and verbal, commenting on being happy that he was up in a chair. Still confused at times, though, believing today was his Birthday, unable to recall it's actual date. Patient tolerated purees on tray with no difficulty producing timely phases of swallow on this consistency. Patient took can of gingerale with straw from therapist, drank from straw with good independence. Patient given trial of softened cracker in pudding to check for oral management of this texture, with patient producing timely chew, timely oral transit and swallow, patient commenting It's good to have something to chew. Recommend UPGRADE diet to Ground/Mechanical (NDD2), continue on thin liquids, pills, where possibly, crushed in puree, but small pills can be given whole with puree. COLLAR PADDER BLINDSTITCH will continue to follow. Frequency/Duration: Date Range for Service Req: Timeline to reassess: Lithographer Helper Clinican/Clinical Fellow: No Supervisory Statement: I have reviewed and agree with the student/clinical fellow's documentation: N/A Speech Language Pathologist: Dorinda Chairez M.A., [facility]-COLLAR PADDER BLINDSTITCH
[2023-12-24 13:37] VITALS: BP 137/81; PULSE 80; RESP 18; TEMP 37.1; O2SAT 93
[2023-12-24] MEDS: Metoprolol Succinate ER 25 MG TAB.ER.24H PO (14:19)
[2023-12-24] MEDS: Finasteride 5 MG TABLET PO (14:19)
--- NOTE | 2023-12-24 14:29 | MHC.CLN ---
F/U SEEN BY VETERANS' COORDINATOR. DIET=GROUND WITH THIN LIQUIDS. USUALLY INTAKE 50-100%. ENSURE BID TO PROMOTE NUTRITIONAL INTAKE. SUPPLEMENT PROVIDES 700 KCALS, 40 G PROTEIN. NO SKIN ISSUES NOTED. FOLLOW FOR DIET TOLERANCE AND INTAKE.
[2023-12-24 15:29] VITALS: BP 122/76; PULSE 77; RESP 18; TEMP 37.1; O2SAT 95
[2023-12-24] MEDS: Enoxaparin Sodium 40 MG/0.4 ML SYRINGE SUBCUT (18:09)
[2023-12-24 20:00] VITALS: BP 139/68; PULSE 59; RESP 18; TEMP 37.3; O2SAT 94
[2023-12-24] MEDS: 0.9 % Sodium Chloride Flush 3 ML SYRINGE IVFLUSH (21:15)
[2023-12-24] MEDS: Tamsulosin HCL 0.4 MG CAPSULE PO (21:15)
[2023-12-24] MEDS: Melatonin 3 MG TABLET 6 MG PO (21:15)
[2023-12-24] MEDS: Atorvastatin Calcium 20 MG TABLET PO (21:37)
[2023-12-25 03:53] VITALS: BP 176/93; PULSE 64; RESP 18; TEMP 37; O2SAT 95
[2023-12-25 06:14] LABS: Hematocrit 35.4 % (42.0-52.0); Hemoglobin 12.1 g/dl (14.0-18.0); Mean Corpuscular HGB Conc 34.2 g/dl (31.0-36.0); Mean Corpuscular Hemoglobin 33.8 pg (27.0-33.0); Mean Corpuscular Volume 98.9 fL (80.0-98.0); Mean Platelet Volume 10.2 fL (9.4-12.4); Platelet Count 370 X10*3/uL (160-400); Red Blood Count 3.58 X10*6/uL (4.60-5.80); Red Cell Distribution Width 13.4 % (11.0-16.0); White Blood Count 10.1 X10*3/uL (4.8-10.8)
[2023-12-25 06:17] LABS: Anion Gap 13 (12-20); Blood Urea Nitrogen 25 mg/dL (9-16); Calcium 8.9 mg/dL (8.4-10.2); Carbon Dioxide 28 mmol/L (22-29); Chloride 106 mmol/L (96-108); Creatinine Clr Calc Pharmacy 45.3; Estimated Glomerular Filt Rate > 60; Glucose Random 99 mg/dL (60-115); Potassium 3.2 mmol/L (3.3-5.1); Sodium 144 mmol/L (135-145)
[2023-12-25] MEDS: Omeprazole 20 MG CAPSULE.DR PO (06:30)
[2023-12-25 07:07] VITALS: BP 180/88; PULSE 65; RESP 18; TEMP 36.4; O2SAT 96
[2023-12-25] MEDS: Phenytoin Oral Susp 100 MG/4 ML ORAL.SUSP PO ×3 (08:04→21:49)
[2023-12-25] MEDS: Clopidogrel Bisulfate 75 MG TABLET PO (08:05)
[2023-12-25] MEDS: Bethanechol Chloride 25 MG TABLET PO ×3 (08:05→21:52)
[2023-12-25] MEDS: Finasteride 5 MG TABLET PO (08:05)
[2023-12-25] MEDS: Aspirin 81 MG TAB.CHEW PO (08:05)
[2023-12-25] MEDS: Metoprolol Succinate ER 25 MG TAB.ER.24H PO (08:05)
[2023-12-25] MEDS: Potassium Chloride ER 20 MEQ TAB.ER.PRT PO (08:05)
[2023-12-25] MEDS: Amoxicillin/Potassium Clav 875 MG TABLET PO ×2 (08:05→21:50)
[2023-12-25 08:06] VITALS: BP 180/88
[2023-12-25] MEDS: 0.9 % Sodium Chloride Flush 3 ML SYRINGE IVFLUSH ×3 (08:06→22:01)
[2023-12-25] MEDS: amLODIPine Besylate 10 MG TABLET PO (08:06)
--- NOTE | 2023-12-25 12:55 | MHC.SL.DTX ---
Dysphagia Diet modifications: Last documented Solid diet consistencies: Grnd/Mech Altered (NDD2) Last documented Liquid consistency: Thin Last documented Medication Administration: Changes made to current diet?: Yes: Upgrade Solids Liquid Consistency and Strategies: Liquid Intake Recommendation: Thin Compensatory Strategies for Safe Swallow: Small Sips Compensatory Strategies for Safe Swallow(b): Sitting Upright (90 deg) Small Bites and Sips Alternate Liquids/Solids Rate of Ingestion Change Solid Food Consistency: Dietary Recommendations: Grnd/Mech Altered (NDD2) Additional Modifications to Solids: Patient requires 1-1 feeding. Add sauces/gravies and blend well. Straw o.k. for liquids. Oral Medication Intake: Crushed with Puree Strategies and Precautions to be Taken for Safe Swallow: Sitting Upright (90 deg) Small Bites and Sips Alternate Liquids/Solids Rate of Ingestion Change Supervision While Eating and/Drinking: Total Assistance (1:1) Foods to Avoid: Swallowing Recommended Treatments: Compens. Strategy Educat. Recommendation for Speech: Inpatient Speech Therapy Treatment: Pt is seen in his room after breakfast. He is confused and having trouble using his television remote. He reports he wants to turn the lights of in his room. HOSPITALITY DIRECTOR assists by turning the overhead lights off, but is unable to turn the bed lights off. He agrees to trial sips of Thin Liquids. HOSPITALITY DIRECTOR provided him the cup and he took it to his mouth and drank without s/s of aspiration. He is given Puree Solids and Chopped/Advanced Solids (soft bread with butter). His oral preparation of the bread is delayed. He would continually chew and needed to be offered a sip of liquid to clear it away. He did so with no overt s/s of aspiration. HOSPITALITY DIRECTOR recommends he continue with the Ground/Mech Altered Solid (NDD2) and Thin Liquids. Pt is able to feed himself, but is confused and may require distant supervision to assist with tray set-up and encourage completion of his meals. Water Softener Servicer Clinican/Clinical Fellow: No Supervisory Statement: I have reviewed and agree with the student/clinical fellow's documentation: N/A Speech Language Pathologist: Joseph Julien M.A., [facility]-HOSPITALITY DIRECTOR
--- NOTE | 2023-12-25 13:48 | P.PNIM_ITS ---
Subjective Subjective Date of Service: 12/25/23 Interval History: Acute metabolic encephalopathy d/t aspiration Review of Systems more awake no overnight events Physical Exam 2 Vital Signs: Vital Signs: Last Vital Signs Temp 97.5 F 12/25/23 07:07 Pulse 65 12/25/23 07:07 Resp 18 12/25/23 07:07 BP 180/88 H 12/25/23 08:06 Pulse Ox 96 12/25/23 07:07 O2 Del Method Room Air 12/25/23 07:07 O2 Flow Rate 2 12/24/23 03:20 BMI result Body Mass Index 18.5 Appearance: Alert.? Orientedx2 cvs: rrr, [id number] . res: clear to auscultation ,no rhonchii or wheezing abd: no rebound or guarding ,nt, bs present. ext pulses present , no cyanosis. neuro: axo3 , nonfocal. Objective Data Active Medications Acetaminophen (Acetaminophen Supp 650 Mg Supp.Rect) 650 mg [place] Q4H PRN PRN Reason: fever, h/a, mild pain Last Admin: 12/19/23 14:52 Dose: 650 mg Documented By: RAUL Al Hydroxide/Mg Hydroxide (Magnesium Hydrox/Alum Hydrox 30 Ml Oral.Susp) 30 ml PO Q6H PRN PRN Reason: Heartburn/Nausea Amlodipine Besylate (Amlodipine Besylate 10 Mg Tablet) 10 mg PO DAILY [facility]; Protocol Last Admin: 12/25/23 08:06 Dose: 10 mg Documented By: ZAIDA Amoxicillin/Clavulanate Potassium (Amoxicillin/Potassium Clav 875 Mg Tablet) 875 mg PO Q12H [facility] Last Admin: 12/25/23 08:05 Dose: 875 mg Documented By: ZAIDA Aspirin (Aspirin 81 Mg Tab.Chew) 81 mg PO DAILY [facility] Last Admin: 12/25/23 08:05 Dose: 81 mg Documented By: ZAIDA Atorvastatin Calcium (Atorvastatin Calcium 20 Mg Tablet) 20 mg PO BEDTIME [facility] Last Admin: 12/24/23 21:37 Dose: 20 mg Documented By: ROSIE Bethanechol Chloride (Bethanechol Chloride 25 Mg Tablet) 25 mg PO TID [facility] Last Admin: 12/25/23 08:05 Dose: 25 mg Documented By: ZAIDA Calcium Carbonate (Calcium Carbonate 750 Mg Tab.Chew) 750 mg PO Q4H PRN PRN Reason: Heartburn Clopidogrel Bisulfate (Clopidogrel Bisulfate 75 Mg Tablet) 75 mg PO DAILY [facility] Last Admin: 12/25/23 08:05 Dose: 75 mg Documented By: ZAIDA Enoxaparin Sodium (Enoxaparin Sodium 40 Mg/0.4 Ml Syringe) 40 mg SUBCUT Q24H [facility] Last Admin: 12/24/23 18:09 Dose: 40 mg Documented By: MIHAI Finasteride (Finasteride 5 Mg Tablet) 5 mg PO DAILY [facility] Last Admin: 12/25/23 08:05 Dose: 5 mg Documented By: ZAIDA Haloperidol (Haloperidol 1 Mg Tablet) 2 mg PO Q6H PRN PRN Reason: agitation Last Admin: 12/23/23 14:09 Dose: 2 mg Documented By: ANTONIO Ibuprofen (Ibuprofen 600 Mg Tablet) 600 mg PO Q6H PRN PRN Reason: Fever >100.4 Last Admin: 12/19/23 18:31 Dose: 600 mg Documented By: RAUL Magnesium Hydroxide (Milk Of Magnesia 30 Ml Oral.Susp) 30 ml PO DAILY PRN PRN Reason: Constipation Melatonin (Melatonin 3 Mg Tablet) 6 mg PO BEDTIME PRN PRN Reason: Insomnia Last Admin: 12/24/23 21:15 Dose: 6 mg Documented By: ROSIE Metoprolol Succinate (Metoprolol Succinate Er 50 Mg Tab.Er.24h) 50 mg PO DAILY [facility]; Protocol Olanzapine (Olanzapine Odt 10 Mg Tab.Rapdis) 5 mg TRANSLINGU BID PRN PRN Reason: agitation Last Admin: 12/23/23 12:23 Dose: 5 mg Documented By: ANTONIO Omeprazole (Omeprazole 20 Mg Capsule.Dr) 20 mg PO DAILY@0630 [facility] Last Admin: 12/25/23 06:30 Dose: 20 mg Documented By: ROSIE Phenytoin (Phenytoin Oral Susp 100 Mg/4 Ml Oral.Susp) 100 mg PO TID [facility] Last Admin: 12/25/23 08:04 Dose: 100 mg Documented By: ZAIDA Sodium Chloride (0.9 % Sodium Chloride Flush 3 Ml Syringe) 3 ml IVFLUSH QSHIFT [facility] Last Admin: 12/25/23 08:06 Dose: 3 ml Documented By: ZAIDA Tamsulosin HCl (Tamsulosin Hcl 0.4 Mg Capsule) 0.4 mg PO BEDTIME [facility] Last Admin: 12/24/23 21:15 Dose: 0.4 mg Documented By: ROSIE Labs 12/25/23 05:27 12/25/23 05:27 Labs: Laboratory Results - last 24 hr 12/25/23 05:27 MCV 98.9 H MCH 33.8 H MCHC 34.2 RDW 13.4 Plt Count 370 MPV 10.2 Absolute Nucleated RBC 0.000 Nucleated RBC % (auto) 0.0 Anion Gap 13 Estim Creat Clear Calc 45.3 Estimated GFR > 60 Random Glucose 99 Calcium 8.9 Assessment and Plan (1) Aspiration into respiratory tract: Status: Acute (2) Delirium: Status: Acute Plan 83/F mood disorder, seizure disorder, hypertension, mixed hyperlipidemia, carotid stenosis on DAPT initially admitted to hospitalist service due to acute encephalopathy thought to be secondary to breakthrough partial seizure from [facility]. Had been discharged to geriatric psychiatry now being admitted back to med surg due to early aspiration pneumonia Acute metabolic encephalopathy d/t aspiration -eeg 12/20, no seizure -overall more coherent but remain confused. Aspiration pneumonia IV unasyn 3g [id number] to Augmentin 12/21, no hypoxia Seen by ASSISTANT PROFESSOR SURGICAL TECHNOLOGY-[facility] altered,aspiration precautions Partial seizure disorder eeg no seizure,seizure precautions chart review:?breakthrough seizures (thought to be given recent med changes) . Recently started on lamictal 12/15 after keppra dc (agitation) then Depakote dc (elevated ammonia). Unlikely to be therapeutic. on 100mg TID, neuro rec to stop lamictal . hypertension- noravasc and metoprolol carotid stenosis-continue aspirin/Plavix unspecified dementia with behavioral disturbance -continue mood stabilizers/antipsychotics as recommended by psychiatry -psychiatry following chronic constipation - lactulose daily since depakote stopped and ammonia normal DVT prophylaxis-Lovenox Full code Patient requires ongoing inpatient stay due to aspiration pneumonia, encephalopathy, still febrile on iv abx. Once afebrile with improvement in mental status will require care team assessment for return to [facility] Quality Stroke Does the patient have a stroke diagnosis?: No VTE Prior VTE?: No VTE Risk Level:: Medical - moderate - high VTE Device Contraindication: Treatment Not Indicated VTE Drug Contraindication: N/A - Med Ordered
--- NOTE | 2023-12-25 15:10 | MHC.CM.PN ---
PT'S HCP INVOKED 12/17/23 DURING INPT PSYCHIATRIC ADMISSION, ORDER UNDER HISTORY
[2023-12-25 15:33] VITALS: BP 173/78; PULSE 56; RESP 16; TEMP 36.8; O2SAT 95
--- NOTE | 2023-12-25 17:39 | P.CNPS_ITS ---
History of Present Illness Date of Service: 12/25/2023 Chief Complaint: aspriration pneumonia, acute metabolic encephalopa Requesting physician: Balbir Brush Discussed with referring provider: Yes Sources of Information: patient interviewed, chart reviewed and crisis/core team assessment reviewed HPI Narrative: Interim Hx: pt presents with a more clear speech. He does not know where he is. He does know he is in the hospital but thinks he is in [place]. When reminded about what brought him to the hospital, namely attempt to kill , suicidal ideation and depressed mood, he reports he does remember that incident. He reports he believes it is his who is making him depressed. He denies any plan or intent to harm her or himself. When asked in what way is making him depressed, he reports I feel I don't know her anymore, I don't know what to talk with her. He also adds that he does not recognize himself but when asked to elaborate, he states I don't know how to explain. He is not oriented to month (said it was August), nor year. Past Psychiatric History: IP: Denies OP: Denies [facility] Medical History BPH (benign prostatic hyperplasia) Mixed hyperlipidemia Hypertension Mood disorder Seizure disorder Family History: none Social History: Pt has been for 52 years. He worked for [employer]. He lives with . He has an adult daughter. Trauma History: none Diagnostics Vital Signs (24Hr): Vital Signs - 24 hr 12/24/23 20:00 12/25/23 03:53 12/25/23 07:07 Temperature 99.2 F 98.6 F 97.5 F Pulse Rate 59 64 65 Respiratory Rate 18 18 18 Blood Pressure 139/68 176/93 H 180/88 H Pulse Oximetry 94 95 96 Oxygen Delivery Method Room Air Room Air Room Air 12/25/23 08:06 12/25/23 15:33 Temperature 98.2 F Pulse Rate 56 Respiratory Rate 16 Blood Pressure 180/88 H 173/78 H Pulse Oximetry 95 Oxygen Delivery Method Room Air BMI result Body Mass Index 18.5 Labs 12/25/23 05:27 12/25/23 05:27 Labs: Laboratory Results - last 48 hr 12/24/23 12/24/23 12/25/23 07:52 11:24 05:27 WBC 11.8 H 10.1 RBC 3.67 L 3.58 L Hgb 12.3 L 12.1 L Hct 35.8 L 35.4 L MCV 97.5 98.9 H MCH 33.5 H 33.8 H MCHC 34.4 34.2 RDW 13.5 13.4 Plt Count 348 370 MPV 9.9 10.2 Absolute Nucleated RBC 0.000 0.000 Nucleated RBC % (auto) 0.0 0.0 Sodium 145 144 Potassium 3.4 3.2 L Chloride 107 106 Carbon Dioxide 28 28 Anion Gap 13 13 BUN 26 H 25 H Creatinine 0.95 0.93 Estim Creat Clear Calc 44.3 45.3 Estimated GFR > 60 > 60 POC Glucose 149 H Random Glucose 103 99 Calcium 9.1 8.9 Mental Status Exam Mental Status Exam Narrative: Appearance: wearing hospital gown, lying in bed, in NAD Behavior: cooperative. Psychomotor: no PMA/OMR Speech: more clear, regular rate/rhythm, more spontaneous TC: denies SI/HI TP:feeling Mood: better Affect: bit brighter than before but constricted range. SI: denies, HI: none expressed VH/AH: no signs Delusions: no overt signs Insight/judgment: impaired x 2. Memory/cog: alert, oriented to being in a hospital but does not know where, not why he is here, nor year nor month. Medications Medications Current Medications Acetaminophen (Acetaminophen Supp 650 Mg Supp.Rect) 650 mg [place] Q4H PRN PRN Reason: fever, h/a, mild pain Last Admin: 12/19/23 14:52 Dose: 650 mg Al Hydroxide/Mg Hydroxide (Magnesium Hydrox/Alum Hydrox 30 Ml Oral.Susp) 30 ml PO Q6H PRN PRN Reason: Heartburn/Nausea Amlodipine Besylate (Amlodipine Besylate 10 Mg Tablet) 10 mg PO DAILY [facility]; Protocol Last Admin: 12/25/23 08:06 Dose: 10 mg Amoxicillin/Clavulanate Potassium (Amoxicillin/Potassium Clav 875 Mg Tablet) 875 mg PO Q12H [facility] Last Admin: 12/25/23 08:05 Dose: 875 mg Aspirin (Aspirin 81 Mg Tab.Chew) 81 mg PO DAILY [facility] Last Admin: 12/25/23 08:05 Dose: 81 mg Atorvastatin Calcium (Atorvastatin Calcium 20 Mg Tablet) 20 mg PO BEDTIME [facility] Last Admin: 12/24/23 21:37 Dose: 20 mg Bethanechol Chloride (Bethanechol Chloride 25 Mg Tablet) 25 mg PO TID [facility] Last Admin: 12/25/23 15:05 Dose: 25 mg Calcium Carbonate (Calcium Carbonate 750 Mg Tab.Chew) 750 mg PO Q4H PRN PRN Reason: Heartburn Clopidogrel Bisulfate (Clopidogrel Bisulfate 75 Mg Tablet) 75 mg PO DAILY [facility] Last Admin: 12/25/23 08:05 Dose: 75 mg Enoxaparin Sodium (Enoxaparin Sodium 40 Mg/0.4 Ml Syringe) 40 mg SUBCUT Q24H [facility] Last Admin: 12/24/23 18:09 Dose: 40 mg Finasteride (Finasteride 5 Mg Tablet) 5 mg PO DAILY [facility] Last Admin: 12/25/23 08:05 Dose: 5 mg Haloperidol (Haloperidol 1 Mg Tablet) 2 mg PO Q6H PRN PRN Reason: agitation Last Admin: 12/23/23 14:09 Dose: 2 mg Ibuprofen (Ibuprofen 600 Mg Tablet) 600 mg PO Q6H PRN PRN Reason: Fever >100.4 Last Admin: 12/19/23 18:31 Dose: 600 mg Magnesium Hydroxide (Milk Of Magnesia 30 Ml Oral.Susp) 30 ml PO DAILY PRN PRN Reason: Constipation Melatonin (Melatonin 3 Mg Tablet) 6 mg PO BEDTIME PRN PRN Reason: Insomnia Last Admin: 12/24/23 21:15 Dose: 6 mg Metoprolol Succinate (Metoprolol Succinate Er 50 Mg Tab.Er.24h) 50 mg PO DAILY [facility]; Protocol Olanzapine (Olanzapine Odt 10 Mg Tab.Rapdis) 5 mg TRANSLINGU BID PRN PRN Reason: agitation Last Admin: 12/23/23 12:23 Dose: 5 mg Omeprazole (Omeprazole 20 Mg Capsule.Dr) 20 mg PO DAILY@0630 [facility] Last Admin: 12/25/23 06:30 Dose: 20 mg Phenytoin (Phenytoin Oral Susp 100 Mg/4 Ml Oral.Susp) 100 mg PO TID [facility] Last Admin: 12/25/23 15:04 Dose: 100 mg Sodium Chloride (0.9 % Sodium Chloride Flush 3 Ml Syringe) 3 ml IVFLUSH QSHIFT [facility] Last Admin: 12/25/23 15:07 Dose: 3 ml Tamsulosin HCl (Tamsulosin Hcl 0.4 Mg Capsule) 0.4 mg PO BEDTIME [facility] Last Admin: 12/24/23 21:15 Dose: 0.4 mg Allergies Allergies Allergy/AdvReac Type Severity Reaction Status Date / Time No Known Allergies Allergy Verified 12/06/23 18:16 Assessment & Plan Assessment & Plan (1) Major neurocognitive disorder due to another medical condition with behavioral disturbance: Status: Acute Code(s): F02.818 - Dementia in other diseases classified elsewhere, unspecified severity, with other behavioral disturbance Plan 12/24 pt speech appears more organized, no mumble unintelligible as he was on Sunday. Orientation is off and he is not able to recall much about hospital stay but he has been delirious most of the time here. definitely some marked improvement from Sunday. Total time managing care of this patient today ____ minutes.
[2023-12-25] MEDS: Enoxaparin Sodium 40 MG/0.4 ML SYRINGE SUBCUT (18:13)
[2023-12-25 19:39] VITALS: BP 153/68; PULSE 66; RESP 18; TEMP 36.7; O2SAT 96
[2023-12-25] MEDS: Melatonin 3 MG TABLET 6 MG PO (21:51)
[2023-12-25] MEDS: Atorvastatin Calcium 20 MG TABLET PO (22:00)
[2023-12-25] MEDS: Tamsulosin HCL 0.4 MG CAPSULE PO (22:02)
[2023-12-26 02:36] VITALS: BP 158/82; PULSE 73; RESP 16; TEMP 36.6; O2SAT 95
[2023-12-26] MEDS: Omeprazole 20 MG CAPSULE.DR PO (05:34)
[2023-12-26 07:57] VITALS: BP 164/82; PULSE 66; RESP 14; TEMP 36.1; O2SAT 96
[2023-12-26] MEDS: Finasteride 5 MG TABLET PO (09:18)
[2023-12-26] MEDS: Phenytoin Oral Susp 100 MG/4 ML ORAL.SUSP PO ×3 (09:18→19:34)
[2023-12-26] MEDS: Clopidogrel Bisulfate 75 MG TABLET PO (09:18)
[2023-12-26] MEDS: Amoxicillin/Potassium Clav 875 MG TABLET PO ×2 (09:18→19:33)
[2023-12-26] MEDS: Aspirin 81 MG TAB.CHEW PO (09:18)
[2023-12-26] MEDS: Bethanechol Chloride 25 MG TABLET PO ×3 (09:18→19:34)
[2023-12-26] MEDS: Metoprolol Succinate ER 50 MG TAB.ER.24H PO (09:18)
[2023-12-26] MEDS: amLODIPine Besylate 10 MG TABLET PO (09:18)
[2023-12-26] MEDS: 0.9 % Sodium Chloride Flush 3 ML SYRINGE IVFLUSH ×3 (09:19→22:30)
--- NOTE | 2023-12-26 10:08 | MHC.SLORD ---
Speech Language Pathology Order Status: CUSTOMER CARE CONSULTANT attempted to see pt this morning for PO trials, pt not awakening to verbal stimuli or sternal rub. CUSTOMER CARE CONSULTANT to return later in day.
--- NOTE | 2023-12-26 10:29 | MHC.CLN ---
F/U DIET=GROUND WITH THIN LIQUIDS. ENSURE BID TO PROMOTE NUTRITIONAL INTAKE. SUPPLEMENT PROVIDES 700 KCALS, 40 G PROTEIN. USUAL INTAKE 50-100%. NO SKIN ISSUES NOTED. FOLLOW FOR DIET TOLERANCE AND INTAKE.
--- NOTE | 2023-12-26 13:06 | MHC.SL.SWA ---
Risk of Aspiration Due to: Confusion Dysphasia Diet Status: NO CHANGE Liquid Consistency and Strategies for Safe Swallow: Liquid Intake Recommendation: Thin Liquid Intake Strategies: Small Sips Solid Food Consistency: Dietary Recommendations: Grnd/Mech Altered (NDD2) Additional Modifications to Solid Foods: Add sauces/gravies and blend well. Oral Medication Intake: Crushed/whole with Puree Please contact the pharmacy regarding appropriate crushable or liquid drug formulations that are available whenever modified delivery is recommended. Compensatory Strategies and Precautions to be Taken for Safe Swallow: Sitting Upright (90 deg) Small Bites and Sips Alternate Liquids/Solids Rate of Ingestion Change Supervision While Eating and Drinking for Safe Swallow: Total Supervision (1:1) Foods to Avoid: Swallowing Recommended Treatments: Compens. Strategy Educat. Recommendation for Speech: Inpatient Speech Therapy Comment: Recommend CONTINUE diet of Ground/Mechanical solids (NDD2), thin liquids, pills crushed/whole in puree. Pt is able to feed himself, but is confused and may require distant supervision to assist with tray set-up and encourage completion of his meals. SOFTWARE APPLICATIONS DEVELOPER to continue to follow to monitor toleration of diet and upgrade diet if/when warranted. Skein [employer] Drier Clinican/Clinical Fellow: No Supervisory Statement: I have reviewed and agree with the student/clinical fellow's documentation: N/A Speech Language Pathologist: Rae Youngblood M.A., CCC-SOFTWARE APPLICATIONS DEVELOPER
--- NOTE | 2023-12-26 13:23 | HO.PM.IMPN ---
Subjective Subjective Date of Service: 12/26/23 Interval History: Acute metabolic encephalopathy d/t aspiration Review of Systems more awake no overnight events Physical Exam Vital Signs: Vital Signs: Last Vital Signs Temp 97.0 F 12/26/23 07:57 Pulse 66 12/26/23 07:57 Resp 14 12/26/23 07:57 BP 164/82 H 12/26/23 07:57 Pulse Ox 96 12/26/23 07:57 O2 Del Method Room Air 12/26/23 07:57 O2 Flow Rate 2 12/24/23 03:20 BMI result Body Mass Index 18.5 Appearance: Alert.? Orientedx2 cvs: rrr, [id number] . res: clear to auscultation ,no rhonchii or wheezing abd: no rebound or guarding ,nt, bs present. ext pulses present , no cyanosis. neuro: axo2 , nonfocal. Objective Data Active Medications Acetaminophen (Acetaminophen Supp 650 Mg Supp.Rect) 650 mg [place] Q4H PRN PRN Reason: fever, h/a, mild pain Last Admin: 12/19/23 14:52 Dose: 650 mg Documented By: RAUL Al Hydroxide/Mg Hydroxide (Magnesium Hydrox/Alum Hydrox 30 Ml Oral.Susp) 30 ml PO Q6H PRN PRN Reason: Heartburn/Nausea Amlodipine Besylate (Amlodipine Besylate 10 Mg Tablet) 10 mg PO DAILY [facility]; Protocol Last Admin: 12/26/23 09:18 Dose: 10 mg Documented By: ZAIDA Amoxicillin/Clavulanate Potassium (Amoxicillin/Potassium Clav 875 Mg Tablet) 875 mg PO Q12H [facility] Last Admin: 12/26/23 09:18 Dose: 875 mg Documented By: ZAIDA Aspirin (Aspirin 81 Mg Tab.Chew) 81 mg PO DAILY [facility] Last Admin: 12/26/23 09:18 Dose: 81 mg Documented By: ZAIDA Atorvastatin Calcium (Atorvastatin Calcium 20 Mg Tablet) 20 mg PO BEDTIME [facility] Last Admin: 12/25/23 22:00 Dose: 20 mg Documented By: LIGIA Bethanechol Chloride (Bethanechol Chloride 25 Mg Tablet) 25 mg PO TID [facility] Last Admin: 12/26/23 09:18 Dose: 25 mg Documented By: ZAIDA Calcium Carbonate (Calcium Carbonate 750 Mg Tab.Chew) 750 mg PO Q4H PRN PRN Reason: Heartburn Clopidogrel Bisulfate (Clopidogrel Bisulfate 75 Mg Tablet) 75 mg PO DAILY [facility] Last Admin: 12/26/23 09:18 Dose: 75 mg Documented By: ZAIDA Enoxaparin Sodium (Enoxaparin Sodium 40 Mg/0.4 Ml Syringe) 40 mg SUBCUT Q24H [facility] Last Admin: 12/25/23 18:13 Dose: 40 mg Documented By: ZAIDA Finasteride (Finasteride 5 Mg Tablet) 5 mg PO DAILY [facility] Last Admin: 12/26/23 09:18 Dose: 5 mg Documented By: ZAIDA Haloperidol (Haloperidol 1 Mg Tablet) 2 mg PO Q6H PRN PRN Reason: agitation Last Admin: 12/23/23 14:09 Dose: 2 mg Documented By: ANTONIO Ibuprofen (Ibuprofen 600 Mg Tablet) 600 mg PO Q6H PRN PRN Reason: Fever >100.4 Last Admin: 12/19/23 18:31 Dose: 600 mg Documented By: RAUL Magnesium Hydroxide (Milk Of Magnesia 30 Ml Oral.Susp) 30 ml PO DAILY PRN PRN Reason: Constipation Melatonin (Melatonin 3 Mg Tablet) 6 mg PO BEDTIME PRN PRN Reason: Insomnia Last Admin: 12/25/23 21:51 Dose: 6 mg Documented By: LIGIA Metoprolol Succinate (Metoprolol Succinate Er 50 Mg Tab.Er.24h) 50 mg PO DAILY [facility]; Protocol Last Admin: 12/26/23 09:18 Dose: 50 mg Documented By: ZAIDA Omeprazole (Omeprazole 20 Mg Capsule.) 20 mg PO DAILY@0630 [facility] Last Admin: 12/26/23 05:34 Dose: 20 mg Documented By: LIGIA Phenytoin (Phenytoin Oral Susp 100 Mg/4 Ml Oral.Susp) 100 mg PO TID [facility] Last Admin: 12/26/23 09:18 Dose: 100 mg Documented By: ZAIDA Sodium Chloride (0.9 % Sodium Chloride Flush 3 Ml Syringe) 3 ml IVFLUSH QSHIFT [facility] Last Admin: 12/26/23 09:19 Dose: 3 ml Documented By: ZAIDA Tamsulosin HCl (Tamsulosin Hcl 0.4 Mg Capsule) 0.4 mg PO BEDTIME [facility] Last Admin: 12/25/23 22:02 Dose: 0.4 mg Documented By: LIGIA Labs 12/25/23 05:27 12/25/23 05:27 Assessment and Plan (1) Aspiration into respiratory tract: Status: Acute Assessment and Plan: 83/F mood disorder, seizure disorder, hypertension, mixed hyperlipidemia, carotid stenosis on DAPT initially admitted to hospitalist service due to acute encephalopathy thought to be secondary to breakthrough partial seizure from [facility]. Had been discharged to geriatric psychiatry now being admitted back to [facility] surg due to early aspiration pneumonia Acute metabolic encephalopathy d/t aspiration -eeg 12/20, no seizure -overall more coherent but remain confused. Aspiration pneumonia IV unasyn 3g [id number] to Augmentin 12/21, no hypoxia Seen by ANIMAL RESEARCHER-[facility] altered,aspiration precautions Partial seizure disorder eeg no seizure,seizure precautions chart review:?breakthrough seizures (thought to be given recent med changes) . Recently started on lamictal 12/15 after keppra dc (agitation) then Depakote dc (elevated ammonia). Unlikely to be therapeutic. on 100mg TID, neuro rec to stop lamictal . hypertension- noravasc and metoprolol carotid stenosis-continue aspirin/Plavix unspecified dementia with behavioral disturbance -continue mood stabilizers/antipsychotics as recommended by psychiatry -psychiatry following chronic constipation - lactulose daily since depakote stopped and ammonia normal DVT prophylaxis-Lovenox Full code Patient requires ongoing inpatient stay due to aspiration pneumonia, encephalopathy, still febrile on iv abx. Once afebrile with improvement in mental status will require care team assessment for return to [facility] Quality Stroke Does the patient have a stroke diagnosis?: No VTE Prior VTE?: No VTE Risk Level:: Medical - moderate - high VTE Device Contraindication: Treatment Not Indicated VTE Drug Contraindication: N/A - Med Ordered
--- NOTE | 2023-12-26 14:41 | MHC.CM.PN ---
EMR REVIEWED AND MESSAGE SENT TO PSYCH FOR INPUT ON PLAN. AWAITING RESPONSE. CM WILL CONTINUE TO FOLLOW FOR PLAN
[2023-12-26 15:37] VITALS: BP 132/69; PULSE 62; RESP 16; TEMP 36.7; O2SAT 97
[2023-12-26] MEDS: Enoxaparin Sodium 40 MG/0.4 ML SYRINGE SUBCUT (18:08)
[2023-12-26 19:25] VITALS: BP 155/80; PULSE 63; RESP 16; TEMP 36.7; O2SAT 96
[2023-12-26] MEDS: Tamsulosin HCL 0.4 MG CAPSULE 0.8 MG PO (19:33)
[2023-12-26] MEDS: Atorvastatin Calcium 20 MG TABLET PO (19:33)
[2023-12-27 03:39] VITALS: BP 161/81; PULSE 60; RESP 16; TEMP 36.2; O2SAT 94
[2023-12-27 07:59] VITALS: BP 151/74; PULSE 65; RESP 12; TEMP 36.1; O2SAT 95
[2023-12-27 09:18] LABS: Potassium 3.5 mmol/L (3.3-5.1)
[2023-12-27] MEDS: Phenytoin Oral Susp 100 MG/4 ML ORAL.SUSP PO ×3 (09:36→20:26)
[2023-12-27] MEDS: Finasteride 5 MG TABLET PO (09:36)
[2023-12-27 09:37] VITALS: BP 141/84
[2023-12-27] MEDS: Clopidogrel Bisulfate 75 MG TABLET PO (09:37)
[2023-12-27] MEDS: amLODIPine Besylate 10 MG TABLET PO (09:37)
[2023-12-27] MEDS: Aspirin 81 MG TAB.CHEW PO (09:38)
[2023-12-27 09:39] VITALS: BP 141/84; PULSE 78
[2023-12-27] MEDS: Bethanechol Chloride 25 MG TABLET PO ×3 (09:39→20:26)
[2023-12-27] MEDS: 0.9 % Sodium Chloride Flush 3 ML SYRINGE IVFLUSH ×3 (09:39→20:26)
[2023-12-27] MEDS: Amoxicillin/Potassium Clav 875 MG TABLET PO ×2 (09:39→20:26)
[2023-12-27] MEDS: Metoprolol Succinate ER 50 MG TAB.ER.24H PO (09:39)
--- NOTE | 2023-12-27 13:08 | P.PNIM_ITS ---
Subjective Subjective Date of Service: 12/27/23 Interval History: Acute metabolic encephalopathy d/t aspiration Review of Systems seems similar no new overnight events Physical Exam 2 Vital Signs: Vital Signs: Last Vital Signs Temp 96.9 F 12/27/23 07:59 Pulse 78 12/27/23 09:39 Resp 12 12/27/23 07:59 BP 141/84 H 12/27/23 09:39 Pulse Ox 95 12/27/23 07:59 O2 Del Method Room Air 12/27/23 07:59 O2 Flow Rate 2 12/24/23 03:20 BMI result Body Mass Index 18.5 Appearance: Alert.? Orientedx2 cvs: rrr, [id number] . res: clear to auscultation ,no rhonchii or wheezing abd: no rebound or guarding ,nt, bs present. ext pulses present , no cyanosis. neuro: axo2 , nonfocal. Objective Data Active Medications Acetaminophen (Acetaminophen Supp 650 Mg Supp.Rect) [address] Q4H PRN PRN Reason: fever, h/a, mild pain Last Admin: 12/19/23 14:52 Dose: 650 mg Documented By: RAUL Al Hydroxide/Mg Hydroxide (Magnesium Hydrox/Alum Hydrox 30 Ml Oral.Susp) 30 ml PO Q6H PRN PRN Reason: Heartburn/Nausea Amlodipine Besylate (Amlodipine Besylate 10 Mg Tablet) 10 mg PO DAILY [facility]; Protocol Last Admin: 12/27/23 09:37 Dose: 10 mg Documented By: PAYTON Amoxicillin/Clavulanate Potassium (Amoxicillin/Potassium Clav 875 Mg Tablet) 875 mg PO Q12H [facility] Last Admin: 12/27/23 09:39 Dose: 875 mg Documented By: PAYTON Aspirin (Aspirin 81 Mg Tab.Chew) 81 mg PO DAILY [facility] Last Admin: 12/27/23 09:38 Dose: 81 mg Documented By: PAYTON Atorvastatin Calcium (Atorvastatin Calcium 20 Mg Tablet) 20 mg PO BEDTIME [facility] Last Admin: 12/26/23 19:33 Dose: 20 mg Documented By: LIGIA Bethanechol Chloride (Bethanechol Chloride 25 Mg Tablet) 25 mg PO TID [facility] Last Admin: 12/27/23 09:39 Dose: 25 mg Documented By: PAYTON Calcium Carbonate (Calcium Carbonate 750 Mg Tab.Chew) 750 mg PO Q4H PRN PRN Reason: Heartburn Clopidogrel Bisulfate (Clopidogrel Bisulfate 75 Mg Tablet) 75 mg PO DAILY [facility] Last Admin: 12/27/23 09:37 Dose: 75 mg Documented By: PAYTON Enoxaparin Sodium (Enoxaparin Sodium 40 Mg/0.4 Ml Syringe) 40 mg SUBCUT Q24H [facility] Last Admin: 12/26/23 18:08 Dose: 40 mg Documented By: ZAIDA Finasteride (Finasteride 5 Mg Tablet) 5 mg PO DAILY [facility] Last Admin: 12/27/23 09:36 Dose: 5 mg Documented By: PAYTON Haloperidol (Haloperidol 1 Mg Tablet) 2 mg PO Q6H PRN PRN Reason: agitation Last Admin: 12/23/23 14:09 Dose: 2 mg Documented By: ANTONIO Magnesium Hydroxide (Milk Of Magnesia 30 Ml Oral.Susp) 30 ml PO DAILY PRN PRN Reason: Constipation Melatonin (Melatonin 3 Mg Tablet) 6 mg PO BEDTIME PRN PRN Reason: Insomnia Last Admin: 12/25/23 21:51 Dose: 6 mg Documented By: LIGIA Metoprolol Succinate (Metoprolol Succinate Er 50 Mg Tab.Er.24h) 50 mg PO DAILY [facility]; Protocol Last Admin: 12/27/23 09:39 Dose: 50 mg Documented By: PAYTON Omeprazole (Omeprazole 20 Mg Capsule.Dr) 20 mg PO DAILY@0630 [facility] Last Admin: 12/27/23 06:08 Dose: Not Given Documented By: LIGIA Non-Admin Reason: Patient Refused Phenytoin (Phenytoin Oral Susp 100 Mg/4 Ml Oral.Susp) 100 mg PO TID [facility] Last Admin: 12/27/23 09:36 Dose: 100 mg Documented By: PAYTON Sodium Chloride (0.9 % Sodium Chloride Flush 3 Ml Syringe) 3 ml IVFLUSH QSHIFT [facility] Last Admin: 12/27/23 09:39 Dose: 3 ml Documented By: PAYTON Tamsulosin HCl (Tamsulosin Hcl 0.4 Mg Capsule) 0.8 mg PO BEDTIME [facility] Last Admin: 12/26/23 19:33 Dose: 0.8 mg Documented By: LIGIA Labs 12/25/23 05:27 12/27/23 09:01 Assessment and Plan (1) Aspiration into respiratory tract: Status: Acute Assessment and Plan: 83/F mood disorder, seizure disorder, hypertension, mixed hyperlipidemia, carotid stenosis on DAPT initially admitted to hospitalist service due to acute encephalopathy thought to be secondary to breakthrough partial seizure from [facility]. Had been discharged to geriatric psychiatry now being admitted back to [facility] due to early aspiration pneumonia Acute metabolic encephalopathy d/t aspiration -eeg 12/20, no seizure -overall more coherent but remain confused. Aspiration pneumonia IV unasyn 3g [id number] to Augmentin 12/21, no hypoxia Seen by NEWS REPORTER-[facility] altered,aspiration precautions Partial seizure disorder eeg no seizure,seizure precautions chart review:?breakthrough seizures (thought to be given recent med changes) . Recently started on lamictal 12/15 after keppra dc (agitation) then Depakote dc (elevated ammonia). Unlikely to be therapeutic. on 100mg TID, neuro rec to stop lamictal . hypertension- noravasc and metoprolol carotid stenosis-continue aspirin/Plavix unspecified dementia with behavioral disturbance -continue mood stabilizers/antipsychotics as recommended by psychiatry -psychiatry following chronic constipation - lactulose daily since depakote stopped and ammonia normal DVT prophylaxis-Lovenox Full code Patient requires ongoing inpatient stay : [facility] placement. Quality Stroke Does the patient have a stroke diagnosis?: No VTE Prior VTE?: No VTE Risk Level:: Medical - moderate - high VTE Device Contraindication: Treatment Not Indicated VTE Drug Contraindication: N/A - Med Ordered
--- NOTE | 2023-12-27 13:28 | MHC.SL.SWA ---
Speech Pathologist Impression: Risk of Aspiration Due to: Dysphasia Diet Status: Recommend UPGRADE diet to Chopped/Advanced (to continue to encourage independence with meals) continue on thin liquids, pills whole with liquid or puree. Liquid Consistency and Strategies for Safe Swallow: Liquid Intake Recommendation: Thin Liquid Intake Strategies: Small Sips Solid Food Consistency: Dietary Recommendations: Chopped/Advanced (NDD3) Additional Modifications to Solid Foods: Patient requires 1-1 feeding. Add sauces/gravies and blend well. Straw o.k. for liquids. Oral Medication Intake: Crushed with Puree Please contact the pharmacy regarding appropriate crushable or liquid drug formulations that are available whenever modified delivery is recommended. Compensatory Strategies and Precautions to be Taken for Safe Swallow: Sitting Upright (90 deg) Small Bites and Sips Alternate Liquids/Solids Rate of Ingestion Change Supervision While Eating and Drinking for Safe Swallow: Total Supervision (1:1) Foods to Avoid: Swallowing Recommended Treatments: Compens. Strategy Educat. Recommendation for Speech: Inpatient Speech Therapy Comment: Patient presented today as awake and alert, conversant and pleasant, but at times still very confused (e.g. said he was watching a program on [employer] but it is was Mccrary is Right. ). Patient was seen today for evaluation of upgrade of his diet, as he is presenting with significant improvement overall with his level of independence and ease of consumption at meals. INTAKE CLINICIAN presented Patient with cracker dipped in pudding and plain cracker. With both consistencies, patient presented with a normal rotary chew, good oral management, timely swallow. Recommend UPGRADE diet to Chopped/Advanced (to continue to encourage independence with meals) continue on thin liquids, pills whole with liquid or puree. Patient to be observed for toleration/independence of diet at this level. INTAKE CLINICIAN adjusted diet in expanse and will follow. Frequency/Duration: Date Range for Service Req: Timeline to reassess: Rn Anesthesiology Clinican/Clinical Fellow: No Supervisory Statement: I have reviewed and agree with the student/clinical fellow's documentation: N/A Speech Language Pathologist: Dorinda Chairez M.A., [facility] [place]-INTAKE CLINICIAN
--- NOTE | 2023-12-27 13:39 | PC.NURSE ---
Duff catheter removed at 0945, patient tolerated well. Educated on need for void in Q6-8 hours. Urinal placed at bedside. All needs met.
--- NOTE | 2023-12-27 14:31 | MHC.CARE ---
Per Bia garrido does not meet inpatient level of care and will be referred to case management for discharge planning.
[2023-12-27 15:57] VITALS: BP 160/72; PULSE 61; RESP 14; TEMP 36.6; O2SAT 98
[2023-12-27] MEDS: Enoxaparin Sodium 40 MG/0.4 ML SYRINGE SUBCUT (18:12)
[2023-12-27 19:58] VITALS: BP 148/82; PULSE 55; RESP 18; TEMP 37; O2SAT 95
[2023-12-27] MEDS: Tamsulosin HCL 0.4 MG CAPSULE 0.8 MG PO (20:26)
[2023-12-27] MEDS: Atorvastatin Calcium 20 MG TABLET PO (20:26)
--- NOTE | 2023-12-27 21:11 | PC.NURSE ---
pt unable to urinate, bladder scanned for over 400ml at 2100. pt straight [facility] per order[facility]
[2023-12-28 03:33] VITALS: BP 168/80; PULSE 50; RESP 18; TEMP 36.5; O2SAT 95
--- NOTE | 2023-12-28 04:43 | MHC.PIE ---
p; pt cont to unable to urinate since adames dc'd yesterday by AM team, bladder scanned for over 380ml. pt straight cathed again for the second time tonight, blood noted in urine ? traumatic straight cath insertion? i; dr major notified e; will cont to monitor
[2023-12-28] MEDS: Omeprazole 20 MG CAPSULE.DR PO (06:10)
[2023-12-28 07:58] VITALS: BP 158/75; PULSE 51; RESP 14; TEMP 36.4; O2SAT 97
[2023-12-28 08:11] VITALS: BP 158/75; PULSE 51; O2SAT 97
--- NOTE | 2023-12-28 08:37 | P.CNPS_ITS ---
History of Present Illness Date of Service: 12/27/2023 Chief Complaint: aspriration pneumonia, acute metabolic encephalopa Reason for Consult: f/u Discussed with referring provider: Yes Sources of Information: patient interviewed, chart reviewed and crisis/core team assessment reviewed HPI Narrative: Interim Hx: pt presents as more alert, speech is more clear and able to respond appropriately to questions. He is able to tell that he is in the hospital but thinks he is in [place]. He is not sure why he is here in the hospital. He still reports month is August and year is 1993. Some difficulty finding words, language impairments in poverty of speech and difficulty expressing himself. With prompting he is able to say that he does remember that he was suicidal and he had tried to kill his . He denies SI or HI, any plan or intent to harm himself or others. He reports today that only reason for him to be depressed is food he is getting- currently on chopped food due to aspiration risk and dysphasia. He does remember that he saw his yesterday and visit went well. When asked about his concern about feeling that it was his relationship with what was causing depressed mood, he does appear to remember telling this to this magnetic tape typewriter operator last Sunday. No behavioral concerns. He has not required any PRN medications for agitation. Past Psychiatric History: IP: Denies OP: Denies [facility] Medical History BPH (benign prostatic hyperplasia) Mixed hyperlipidemia Hypertension Mood disorder Seizure disorder Family History: none Social History: Pt has been for 52 years. He worked for [employer]. He lives with . He has an adult daughter. Trauma History: none Diagnostics Vital Signs (24Hr): Vital Signs - 24 hr 12/27/23 09:37 12/27/23 09:39 12/27/23 15:57 Temperature 97.9 F Pulse Rate 78 61 Respiratory Rate 14 Blood Pressure 141/84 H 141/84 H 160/72 H Pulse Oximetry 98 Oxygen Delivery Method Room Air 12/27/23 19:58 12/28/23 03:33 12/28/23 07:58 Temperature 98.6 F 97.7 F 97.5 F Pulse Rate 55 50 51 Respiratory Rate 18 18 14 Blood Pressure 148/82 H 168/80 H 158/75 H Pulse Oximetry 95 95 97 Oxygen Delivery Method Room Air Room Air Room Air 12/28/23 08:11 Temperature Pulse Rate 51 Respiratory Rate Blood Pressure 158/75 H Pulse Oximetry 97 Oxygen Delivery Method BMI result Body Mass Index 18.5 Labs 12/25/23 05:27 12/27/23 09:01 Labs: Laboratory Results - last 48 hr 12/27/23 09:01 Potassium 3.5 Mental Status Exam Mental Status Exam Narrative: Appearance: wearing hospital gown, lying in bed, in NAD Behavior: cooperative. Psychomotor: no PMA/OMR Speech: more clear, regular rate/rhythm, more spontaneous TC: denies SI/HI TP:feeling Mood: better Affect: bit brighter than before but constricted range. SI: denies, HI: none expressed VH/AH: no signs Delusions: no overt signs Insight/judgment: impaired x 2. Memory/cog: alert, oriented to being in a hospital but does not know where, not why he is here, nor year nor month. Medications Medications Current Medications Acetaminophen (Acetaminophen Supp 650 Mg Supp.Rect) 650 mg SC Q4H PRN PRN Reason: fever, h/a, mild pain Last Admin: 12/19/23 14:52 Dose: 650 mg Al Hydroxide/Mg Hydroxide (Magnesium Hydrox/Alum Hydrox 30 Ml Oral.Susp) 30 ml PO Q6H PRN PRN Reason: Heartburn/Nausea Amlodipine Besylate (Amlodipine Besylate 10 Mg Tablet) 10 mg PO DAILY [facility]; Protocol Last Admin: 12/27/23 09:37 Dose: 10 mg Amoxicillin/Clavulanate Potassium (Amoxicillin/Potassium Clav 875 Mg Tablet) 875 mg PO Q12H [facility] Last Admin: 12/27/23 20:26 Dose: 875 mg Aspirin (Aspirin 81 Mg Tab.Chew) 81 mg PO DAILY [facility] Last Admin: 12/27/23 09:38 Dose: 81 mg Atorvastatin Calcium (Atorvastatin Calcium 20 Mg Tablet) 20 mg PO BEDTIME [facility] Last Admin: 12/27/23 20:26 Dose: 20 mg Bethanechol Chloride (Bethanechol Chloride 25 Mg Tablet) 25 mg PO TID [facility] Last Admin: 12/27/23 20:26 Dose: 25 mg Calcium Carbonate (Calcium Carbonate 750 Mg Tab.Chew) 750 mg PO Q4H PRN PRN Reason: Heartburn Clopidogrel Bisulfate (Clopidogrel Bisulfate 75 Mg Tablet) 75 mg PO DAILY [facility] Last Admin: 12/27/23 09:37 Dose: 75 mg Enoxaparin Sodium (Enoxaparin Sodium 40 Mg/0.4 Ml Syringe) 40 mg SUBCUT Q24H [facility] Last Admin: 12/27/23 18:12 Dose: 40 mg Finasteride (Finasteride 5 Mg Tablet) 5 mg PO DAILY [facility] Last Admin: 12/27/23 09:36 Dose: 5 mg Haloperidol (Haloperidol 1 Mg Tablet) 2 mg PO Q6H PRN PRN Reason: agitation Last Admin: 12/23/23 14:09 Dose: 2 mg Magnesium Hydroxide (Milk Of Magnesia 30 Ml Oral.Susp) 30 ml PO DAILY PRN PRN Reason: Constipation Melatonin (Melatonin 3 Mg Tablet) 6 mg PO BEDTIME PRN PRN Reason: Insomnia Last Admin: 12/25/23 21:51 Dose: 6 mg Metoprolol Succinate (Metoprolol Succinate Er 50 Mg Tab.Er.24h) 50 mg PO DAILY [facility]; Protocol Last Admin: 12/27/23 09:39 Dose: 50 mg Omeprazole (Omeprazole 20 Mg Capsule.Dr) 20 mg PO DAILY@0630 [facility] Last Admin: 12/28/23 06:10 Dose: 20 mg Phenytoin (Phenytoin Oral Susp 100 Mg/4 Ml Oral.Susp) 100 mg PO TID [facility] Last Admin: 12/27/23 20:26 Dose: 100 mg Sodium Chloride (0.9 % Sodium Chloride Flush 3 Ml Syringe) 3 ml IVFLUSH QSHIFT [facility] Last Admin: 12/27/23 20:26 Dose: 3 ml Tamsulosin HCl (Tamsulosin Hcl 0.4 Mg Capsule) 0.8 mg PO BEDTIME [facility] Last Admin: 12/27/23 20:26 Dose: 0.8 mg Allergies Allergies Allergy/AdvReac Type Severity Reaction Status Date / Time No Known Allergies Allergy Verified 12/06/23 18:16 Assessment & Plan Assessment & Plan (1) Major neurocognitive disorder due to another medical condition with behavioral disturbance: Status: Acute Code(s): F02.818 - Dementia in other diseases classified elsewhere, unspecified severity, with other behavioral disturbance Plan In terms of delirium, pt appears much clear from delirium and seems like this is baseline which does show significant memory and cognitive impairments. He has significant language impairments, problems with orientation, retaining informations. He is sensitive to effects of medications, which may have contributed to overall presentation of delirium. PLAN 1. At this time I do not recommend inpatient psych admission. No imminent safety concerns in terms of psychosis, SI or HI or aggression. Dispo per primary medical team. Pending PT reconsult. Total time managing care of this patient today ____ minutes.
[2023-12-28] MEDS: Phenytoin Oral Susp 100 MG/4 ML ORAL.SUSP PO ×3 (08:38→20:39)
[2023-12-28] MEDS: Clopidogrel Bisulfate 75 MG TABLET PO (08:38)
[2023-12-28] MEDS: Amoxicillin/Potassium Clav 875 MG TABLET PO (08:38)
[2023-12-28] MEDS: Aspirin 81 MG TAB.CHEW PO (08:39)
[2023-12-28] MEDS: amLODIPine Besylate 10 MG TABLET PO (08:39)
[2023-12-28] MEDS: 0.9 % Sodium Chloride Flush 3 ML SYRINGE IVFLUSH ×2 (08:39→20:40)
[2023-12-28] MEDS: Finasteride 5 MG TABLET PO (08:39)
[2023-12-28] MEDS: Bethanechol Chloride 25 MG TABLET PO ×3 (08:39→20:39)
--- NOTE | 2023-12-28 10:02 | MHC.CLN ---
F/U DIET=CHOPPED WITH THIN LIQUIDS. ENSURE BID TO PROMOTE NUTRITIONAL INTAKE. SUPPLEMENT PROVIDES 700 KCALS, 40 G PROTEIN. USUAL INTAKE 50-100%. NO SKIN WITH NO PRESSURE AREAS. FOLLOW FOR DIET TOLERANCE AND INTAKE. RD TO FOLLOW WEEKLY.
--- NOTE | 2023-12-28 11:27 | MHC.SL.SWA ---
Speech Pathologist Impression: Risk of Aspiration Dysphasia Diet Status: Recommend continue on Chopped/Advanced (to continue to encourage independence with meals) and Thin Liquids, pills whole with liquid or puree. Liquid Consistency and Strategies for Safe Swallow: Liquid Intake Recommendation: Thin Liquid Intake Strategies: Small Sips Solid Food Consistency: Dietary Recommendations: Chopped/Advanced (NDD3) Oral Medication Intake: Whole with Puree or Liquid Please contact the pharmacy regarding appropriate crushable or liquid drug formulations that are available whenever modified delivery is recommended. Compensatory Strategies and Precautions to be Taken for Safe Swallow: Sitting Upright (90 deg) Small Bites and Sips Alternate Liquids/Solids Rate of Ingestion Change Supervision While Eating and Drinking for Safe Swallow: Total Supervision (1:1) Swallowing Recommended Treatments: Compens. Strategy Educat. Recommendation for Speech: Inpatient Speech Therapy Comment: Recommend CONTINUE diet of Chopped/Advanced (to continue to encourage independence with meals) and Thin Liquids, pills whole with liquid or puree. Patient to be observed for toleration/independence of diet at this level. POST MANAGER adjusted diet in expanse and will follow. Frequency/Duration: Date Range for Service Req: Timeline to reassess: Dampener Clinican/Clinical Fellow: No Supervisory Statement: I have reviewed and agree with the student/clinical fellow's documentation: N/A Speech Language Pathologist: Sonja Norton M.A., [facility]-POST MANAGER
--- NOTE | 2023-12-28 14:17 | MHC.CM.PN ---
EMR REVIEWED AND PER MD ROUNDS, PT HAS BEEN CLEARED BY PSYCH FOR DC TO STR. REFFERALS FOR STR IN THE [place] ARE[place] SENT. CM WILL AWAIT RESPONSES.
[2023-12-28 16:00] VITALS: BP 113/60; PULSE 60; RESP 14; TEMP 37.2; O2SAT 97
--- NOTE | 2023-12-28 17:00 | HO.PM.IMPN ---
Subjective Subjective Date of Service: 12/28/23 Interval History: urinary retention ,hematuria 1 episode Review of Systems Patient otherwise seems to be similar. One episode of hematuria? Related to straight cath. No new episode so far. Physical Exam Vital Signs: Vital Signs: Last Vital Signs Temp 98.9 F 12/28/23 16:00 Pulse 60 12/28/23 16:00 Resp 14 12/28/23 16:00 BP 113/60 12/28/23 16:00 Pulse Ox 97 12/28/23 16:00 O2 Del Method Room Air 12/28/23 16:00 O2 Flow Rate 2 12/24/23 03:20 BMI result Body Mass Index 18.5 Appearance: Alert.? Orientedx2 cvs: rrr, [id number] . res: clear to auscultation ,no rhonchii or wheezing abd: no rebound or guarding ,nt, bs present. ext pulses present , no cyanosis. neuro: axo2 , nonfocal. Objective Data Active Medications Acetaminophen (Acetaminophen Supp 650 Mg Supp.Rect) 650 mg [place] Q4H PRN PRN Reason: fever, h/a, mild pain Last Admin: 12/19/23 14:52 Dose: 650 mg Documented By: RAUL Al Hydroxide/Mg Hydroxide (Magnesium Hydrox/Alum Hydrox 30 Ml Oral.Susp) 30 ml PO Q6H PRN PRN Reason: Heartburn/Nausea Amlodipine Besylate (Amlodipine Besylate 10 Mg Tablet) 10 mg PO DAILY [facility]; Protocol Last Admin: 12/28/23 08:39 Dose: 10 mg Documented By: KAYODE Amoxicillin/Clavulanate Potassium (Amoxicillin/Potassium Clav 875 Mg Tablet) 875 mg PO Q12H [facility] Last Admin: 12/28/23 08:38 Dose: 875 mg Documented By: KAYODE Aspirin (Aspirin 81 Mg Tab.Chew) 81 mg PO DAILY [facility] Last Admin: 12/28/23 08:39 Dose: 81 mg Documented By: KAYODE Atorvastatin Calcium (Atorvastatin Calcium 20 Mg Tablet) 20 mg PO BEDTIME [facility] Last Admin: 12/27/23 20:26 Dose: 20 mg Documented By: FERMIN Bethanechol Chloride (Bethanechol Chloride 25 Mg Tablet) 25 mg PO TID [facility] Last Admin: 12/28/23 14:38 Dose: 25 mg Documented By: KAYODE Calcium Carbonate (Calcium Carbonate 750 Mg Tab.Chew) 750 mg PO Q4H PRN PRN Reason: Heartburn Clopidogrel Bisulfate (Clopidogrel Bisulfate 75 Mg Tablet) 75 mg PO DAILY [facility] Last Admin: 12/28/23 08:38 Dose: 75 mg Documented By: KAYODE Finasteride (Finasteride 5 Mg Tablet) 5 mg PO DAILY [facility] Last Admin: 12/28/23 08:39 Dose: 5 mg Documented By: KAYODE Haloperidol (Haloperidol 1 Mg Tablet) 2 mg PO Q6H PRN PRN Reason: agitation Last Admin: 12/23/23 14:09 Dose: 2 mg Documented By: ANTONIO Magnesium Hydroxide (Milk Of Magnesia 30 Ml Oral.Susp) 30 ml PO DAILY PRN PRN Reason: Constipation Melatonin (Melatonin 3 Mg Tablet) 6 mg PO BEDTIME PRN PRN Reason: Insomnia Last Admin: 12/25/23 21:51 Dose: 6 mg Documented By: LIGIA Metoprolol Succinate (Metoprolol Succinate Er 50 Mg Tab.Er.24h) 50 mg PO DAILY [facility]; Protocol Last Admin: 12/28/23 08:38 Dose: Not Given Documented By: KAYODE Non-Admin Reason: hr low Omeprazole (Omeprazole 20 Mg Capsule.Dr) 20 mg PO DAILY@0630 [facility] Last Admin: 12/28/23 06:10 Dose: 20 mg Documented By: FERMIN Phenytoin (Phenytoin Oral Susp 100 Mg/4 Ml Oral.Susp) 100 mg PO TID [facility] Last Admin: 12/28/23 14:38 Dose: 100 mg Documented By: KAYODE Sodium Chloride (0.9 % Sodium Chloride Flush 3 Ml Syringe) 3 ml IVFLUSH QSHIFT [facility] Last Admin: 12/28/23 16:13 Dose: Not Given Documented By: MIHAI Non-Admin Reason: Previously Administered Tamsulosin HCl (Tamsulosin Hcl 0.4 Mg Capsule) 0.8 mg PO BEDTIME [facility] Last Admin: 12/27/23 20:26 Dose: 0.8 mg Documented By: FERMIN Labs 12/25/23 05:27 12/27/23 09:01 Assessment and Plan (1) Aspiration into respiratory tract: Status: Acute Assessment and Plan: 83/F mood disorder, seizure disorder, hypertension, mixed hyperlipidemia, carotid stenosis on DAPT initially admitted to hospitalist service due to acute encephalopathy thought to be secondary to breakthrough partial seizure from [facility]. Had been discharged to geriatric psychiatry now being admitted back to med surg due to early aspiration pneumonia Acute metabolic encephalopathy d/t aspiration -eeg 12/20, no seizure -overall more coherent but remain confused. Aspiration pneumonia IV unasyn 3g [id number] to Augmentin completed. Seen by WORD PROCESSOR TECHNICIAN-ground/[facility] altered,aspiration precautions Partial seizure disorder eeg no seizure,seizure precautions chart review:?breakthrough seizures (thought to be given recent med changes) . Recently started on lamictal 12/15 after keppra dc (agitation) then Depakote dc (elevated ammonia). Unlikely to be therapeutic. on 100mg TID, neuro rec to stop lamictal . hypertension- noravasc and metoprolol carotid stenosis-continue aspirin/Plavix unspecified dementia with behavioral disturbance -continue mood stabilizers/antipsychotics as recommended by psychiatry -psychiatry following chronic constipation - lactulose daily since depakote stopped and ammonia normal DVT prophylaxis-Lovenox Full code Patient requires ongoing inpatient stay : awaiting placement Quality Stroke Does the patient have a stroke diagnosis?: No VTE Prior VTE?: No VTE Risk Level:: Medical - moderate - high VTE Device Contraindication: Treatment Not Indicated VTE Drug Contraindication: N/A - Med Ordered
[2023-12-28 20:00] VITALS: BP 131/84; PULSE 59; RESP 16; TEMP 36.3; O2SAT 98
[2023-12-28] MEDS: Atorvastatin Calcium 20 MG TABLET PO (20:39)
[2023-12-28] MEDS: Tamsulosin HCL 0.4 MG CAPSULE 0.8 MG PO (20:39)
--- NOTE | 2023-12-28 21:35 | MHC.PIE ---
Addendum entered by Kendrick Angel RN 12/28/23 21:56: e; adames in place, blood/clots noted during insertion, adames irrigated, now urine yellow, will cont to monitor Original Note: p; pt unable to urinate, bladder scanned for over 600ml. note; per previous rn, pt has been unable to urniate or has been incontinent of urine but has been retaining throughout during the day time. i; dr major notified. adames cath placed back in e; will cont monitor
[2023-12-29 03:49] VITALS: PULSE 77
[2023-12-29] MEDS: Omeprazole 20 MG CAPSULE.DR PO (06:01)
[2023-12-29 07:21] VITALS: BP 151/79; PULSE 78; RESP 16; TEMP 36.8; O2SAT 95
[2023-12-29] MEDS: Phenytoin Oral Susp 100 MG/4 ML ORAL.SUSP PO ×3 (08:28→21:44)
[2023-12-29] MEDS: amLODIPine Besylate 10 MG TABLET PO (08:29)
[2023-12-29] MEDS: 0.9 % Sodium Chloride Flush 3 ML SYRINGE IVFLUSH ×3 (08:29→21:45)
[2023-12-29] MEDS: Finasteride 5 MG TABLET PO (08:29)
[2023-12-29] MEDS: Bethanechol Chloride 25 MG TABLET PO ×3 (08:29→21:44)
[2023-12-29] MEDS: Metoprolol Succinate ER 50 MG TAB.ER.24H PO (08:29)
--- NOTE | 2023-12-29 11:07 | P.PNIM_ITS ---
Subjective Subjective Date of Service: 12/29/23 Interval History: urinary retention ,hematuria 1 episode . Review of Systems s/p adames last night urine is more yellowish colour Physical Exam 2 Vital Signs: Vital Signs: Last Vital Signs Temp 98.3 F 12/29/23 07:21 Pulse 78 12/29/23 07:21 Resp 16 12/29/23 07:21 BP 151/79 H 12/29/23 07:21 Pulse Ox 95 12/29/23 07:21 O2 Del Method Room Air 12/29/23 07:21 O2 Flow Rate 2 12/24/23 03:20 BMI result Body Mass Index 18.5 Appearance: Alert.? Orientedx2 cvs: rrr, [id number] . res: clear to auscultation ,no rhonchii or wheezing abd: no rebound or guarding ,nt, bs present. ext pulses present , no cyanosis. neuro: axo2 , nonfocal. Objective Data Active Medications Acetaminophen (Acetaminophen Supp 650 Mg Supp.Rect) 650 mg [place] Q4H PRN PRN Reason: fever, h/a, mild pain Last Admin: 12/19/23 14:52 Dose: 650 mg Documented By: RAUL Al Hydroxide/Mg Hydroxide (Magnesium Hydrox/Alum Hydrox 30 Ml Oral.Susp) 30 ml PO Q6H PRN PRN Reason: Heartburn/Nausea Amlodipine Besylate (Amlodipine Besylate 10 Mg Tablet) 10 mg PO DAILY [facility]; Protocol Last Admin: 12/29/23 08:29 Dose: 10 mg Documented By: ALYSIA Aspirin (Aspirin 81 Mg Tab.Chew) 81 mg PO DAILY [facility] Last Admin: 12/29/23 09:51 Dose: Not Given Documented By: ALYSIA Non-Admin Reason: hold per MD Brush Atorvastatin Calcium (Atorvastatin Calcium 20 Mg Tablet) 20 mg PO BEDTIME [facility] Last Admin: 12/28/23 20:39 Dose: 20 mg Documented By: FERMIN Bethanechol Chloride (Bethanechol Chloride 25 Mg Tablet) 25 mg PO TID [facility] Last Admin: 12/29/23 08:29 Dose: 25 mg Documented By: ALYSIA Calcium Carbonate (Calcium Carbonate 750 Mg Tab.Chew) 750 mg PO Q4H PRN PRN Reason: Heartburn Clopidogrel Bisulfate (Clopidogrel Bisulfate 75 Mg Tablet) 75 mg PO DAILY [facility] Last Admin: 12/29/23 09:51 Dose: Not Given Documented By: ALYSIA Non-Admin Reason: Hold per MD Brush Finasteride (Finasteride 5 Mg Tablet) 5 mg PO DAILY [facility] Last Admin: 12/29/23 08:29 Dose: 5 mg Documented By: ALYSIA Haloperidol (Haloperidol 1 Mg Tablet) 2 mg PO Q6H PRN PRN Reason: agitation Last Admin: 12/23/23 14:09 Dose: 2 mg Documented By: ANTONIO Magnesium Hydroxide (Milk Of Magnesia 30 Ml Oral.Susp) 30 ml PO DAILY PRN PRN Reason: Constipation Melatonin (Melatonin 3 Mg Tablet) 6 mg PO BEDTIME PRN PRN Reason: Insomnia Last Admin: 12/25/23 21:51 Dose: 6 mg Documented By: LIGIA Metoprolol Succinate (Metoprolol Succinate Er 50 Mg Tab.Er.24h) 50 mg PO DAILY [facility]; Protocol Last Admin: 12/29/23 08:29 Dose: 50 mg Documented By: ALYSIA Omeprazole (Omeprazole 20 Mg Capsule.Dr) 20 mg PO DAILY@0630 [facility] Last Admin: 12/29/23 06:01 Dose: 20 mg Documented By: FERMIN Phenytoin (Phenytoin Oral Susp 100 Mg/4 Ml Oral.Susp) 100 mg PO TID [facility] Last Admin: 12/29/23 08:28 Dose: 100 mg Documented By: ALYSIA Sodium Chloride (0.9 % Sodium Chloride Flush 3 Ml Syringe) 3 ml IVFLUSH QSHIFT [facility] Last Admin: 12/29/23 08:29 Dose: 3 ml Documented By: ALYSIA Tamsulosin HCl (Tamsulosin Hcl 0.4 Mg Capsule) 0.8 mg PO BEDTIME [facility] Last Admin: 12/28/23 20:39 Dose: 0.8 mg Documented By: FERMIN Labs 12/25/23 05:27 12/27/23 09:01 Assessment and Plan (1) Aspiration into respiratory tract: Status: Acute Assessment and Plan: 83/F mood disorder, seizure disorder, hypertension, mixed hyperlipidemia, carotid stenosis on DAPT initially admitted to hospitalist service due to acute encephalopathy thought to be secondary to breakthrough partial seizure from [facility]. Had been discharged to geriatric psychiatry now being admitted back to med surg due to early aspiration pneumonia Acute metabolic encephalopathy d/t aspiration -eeg 12/20, no seizure -overall more coherent but remain confused. Aspiration pneumonia IV unasyn 3g [id number] to Augmentin completed. Seen by MONITOR CAR OPERATOR-ground/[facility] altered,aspiration precautions Partial seizure disorder eeg no seizure,seizure precautions chart review:?breakthrough seizures (thought to be given recent med changes) . Recently started on lamictal 12/15 after keppra dc (agitation) then Depakote dc (elevated ammonia). Unlikely to be therapeutic. on 100mg TID, neuro rec to stop lamictal . hypertension- noravasc and metoprolol carotid stenosis-continue aspirin/Plavix unspecified dementia with behavioral disturbance -continue mood stabilizers/antipsychotics as recommended by psychiatry -psychiatry following chronic constipation - lactulose daily since depakote stopped and ammonia normal DVT prophylaxis-Lovenox Full code Patient requires ongoing inpatient stay : awaiting placement Quality Stroke Does the patient have a stroke diagnosis?: No VTE Prior VTE?: No VTE Risk Level:: Medical - moderate - high VTE Device Contraindication: Treatment Not Indicated VTE Drug Contraindication: N/A - Med Ordered
--- NOTE | 2023-12-29 14:48 | PC.NURSE ---
Kiana called, states at baseline pt straight caths himself at home 2x/day d/t hx of prostate/bladder issues. MD Brush made aware. Per MD Brush leave in FC.
[2023-12-29 15:23] VITALS: BP 129/71; PULSE 58; RESP 16; TEMP 37.2; O2SAT 94
[2023-12-29 19:15] VITALS: BP 170/81; PULSE 71; RESP 16; TEMP 37.1; O2SAT 96
[2023-12-29] MEDS: Atorvastatin Calcium 20 MG TABLET PO (21:44)
[2023-12-29] MEDS: Tamsulosin HCL 0.4 MG CAPSULE 0.8 MG PO (21:44)
[2023-12-30 03:30] VITALS: BP 108/61; PULSE 65; RESP 12; TEMP 37.4; O2SAT 95
[2023-12-30] MEDS: Omeprazole 20 MG CAPSULE.DR PO (05:22)
[2023-12-30 07:16] VITALS: BP 141/71; PULSE 63; RESP 18; TEMP 36; O2SAT 96
--- NOTE | 2023-12-30 09:10 | HO.PM.IMPN ---
Subjective Subjective Date of Service: 12/30/23 Interval History: follow up Review of Systems nonew hematuria has adames due tourinary retention Physical Exam Vital Signs: Vital Signs: Last Vital Signs Temp 96.8 F 12/30/23 07:16 Pulse 63 12/30/23 07:16 Resp 18 12/30/23 07:16 BP 141/71 H 12/30/23 07:16 Pulse Ox 96 12/30/23 07:16 O2 Del Method Room Air 12/30/23 07:16 O2 Flow Rate 2 12/24/23 03:20 BMI result Body Mass Index 18.5 Appearance: Alert.? Orientedx2 cvs: rrr, [id number] . res: clear to auscultation ,no rhonchii or wheezing abd: no rebound or guarding ,nt, bs present. ext pulses present , no cyanosis. neuro: axo2 , nonfocal. Objective Data Active Medications Acetaminophen (Acetaminophen Supp 650 Mg Supp.Rect) 650 mg NM Q4H PRN PRN Reason: fever, h/a, mild pain Last Admin: 12/19/23 14:52 Dose: 650 mg Documented By: RAUL Al Hydroxide/Mg Hydroxide (Magnesium Hydrox/Alum Hydrox 30 Ml Oral.Susp) 30 ml PO Q6H PRN PRN Reason: Heartburn/Nausea Amlodipine Besylate (Amlodipine Besylate 10 Mg Tablet) 10 mg PO DAILY [facility]; Protocol Last Admin: 12/29/23 08:29 Dose: 10 mg Documented By: ALYSIA Aspirin (Aspirin 81 Mg Tab.Chew) 81 mg PO DAILY [facility] Last Admin: 12/29/23 09:51 Dose: Not Given Documented By: ALYSIA Non-Admin Reason: hold per MD Brush Atorvastatin Calcium (Atorvastatin Calcium 20 Mg Tablet) 20 mg PO BEDTIME [facility] Last Admin: 12/29/23 21:44 Dose: 20 mg Documented By: FERMIN Bethanechol Chloride (Bethanechol Chloride 25 Mg Tablet) 25 mg PO TID [facility] Last Admin: 12/29/23 21:44 Dose: 25 mg Documented By: FERMIN Calcium Carbonate (Calcium Carbonate 750 Mg Tab.Chew) 750 mg PO Q4H PRN PRN Reason: Heartburn Clopidogrel Bisulfate (Clopidogrel Bisulfate 75 Mg Tablet) 75 mg PO DAILY [facility] Last Admin: 12/29/23 09:51 Dose: Not Given Documented By: ALYSIA Non-Admin Reason: Hold per MD Brush Finasteride (Finasteride 5 Mg Tablet) 5 mg PO DAILY [facility] Last Admin: 12/29/23 08:29 Dose: 5 mg Documented By: ALYSIA Haloperidol (Haloperidol 1 Mg Tablet) 2 mg PO Q6H PRN PRN Reason: agitation Last Admin: 12/23/23 14:09 Dose: 2 mg Documented By: ANTONIO Magnesium Hydroxide (Milk Of Magnesia 30 Ml Oral.Susp) 30 ml PO DAILY PRN PRN Reason: Constipation Melatonin (Melatonin 3 Mg Tablet) 6 mg PO BEDTIME PRN PRN Reason: Insomnia Last Admin: 12/25/23 21:51 Dose: 6 mg Documented By: LIGIA Metoprolol Succinate (Metoprolol Succinate Er 50 Mg Tab.Er.24h) 50 mg PO DAILY [facility]; Protocol Last Admin: 12/29/23 08:29 Dose: 50 mg Documented By: ALYSIA Omeprazole (Omeprazole 20 Mg Capsule.) 20 mg PO DAILY@0630 [facility] Last Admin: 12/30/23 05:22 Dose: 20 mg Documented By: FERMIN Phenytoin (Phenytoin Oral Susp 100 Mg/4 Ml Oral.Susp) 100 mg PO TID [facility] Last Admin: 12/29/23 21:44 Dose: 100 mg Documented By: FERMIN Sodium Chloride (0.9 % Sodium Chloride Flush 3 Ml Syringe) 3 ml IVFLUSH QSHIFT [facility] Last Admin: 12/29/23 21:45 Dose: 3 ml Documented By: FERMIN Tamsulosin HCl (Tamsulosin Hcl 0.4 Mg Capsule) 0.8 mg PO BEDTIME [facility] Last Admin: 12/29/23 21:44 Dose: 0.8 mg Documented By: FERMIN Labs 12/25/23 05:27 12/27/23 09:01 Assessment and Plan (1) Aspiration into respiratory tract: Status: Acute Assessment and Plan: 83/F mood disorder, seizure disorder, hypertension, mixed hyperlipidemia, carotid stenosis on DAPT initially admitted to hospitalist service due to acute encephalopathy thought to be secondary to breakthrough partial seizure from [facility]. Had been discharged to geriatric psychiatry now being admitted back to [facility] due to early aspiration pneumonia Acute metabolic encephalopathy d/t aspiration -eeg 8/30, no seizure -overall more coherent but remain confused. Aspiration pneumonia IV unasyn 3g [id number] to Augmentin completed. Seen by GOVERNMENT AFFAIRS DIRECTOR-[facility] altered,aspiration precautions Partial seizure disorder eeg no seizure,seizure precautions chart review:?breakthrough seizures (thought to be given recent med changes) . Recently started on lamictal 12/15 after keppra dc (agitation) then Depakote dc (elevated ammonia). Unlikely to be therapeutic. on 100mg TID, neuro rec to stop lamictal . hypertension- noravasc and metoprolol carotid stenosis-continue aspirin/Plavix unspecified dementia with behavioral disturbance -continue mood stabilizers/antipsychotics as recommended by psychiatry -psychiatry following chronic constipation - lactulose daily since depakote stopped and ammonia normal DVT prophylaxis-Lovenox Full code Patient requires ongoing inpatient stay : awaiting placement Quality Stroke Does the patient have a stroke diagnosis?: No VTE Prior VTE?: No VTE Risk Level:: Medical - moderate - high VTE Device Contraindication: Treatment Not Indicated VTE Drug Contraindication: N/A - Med Ordered
[2023-12-30] MEDS: amLODIPine Besylate 10 MG TABLET PO (09:19)
[2023-12-30] MEDS: Phenytoin Oral Susp 100 MG/4 ML ORAL.SUSP PO ×3 (09:19→21:31)
[2023-12-30] MEDS: 0.9 % Sodium Chloride Flush 3 ML SYRINGE IVFLUSH ×3 (09:20→21:31)
[2023-12-30] MEDS: Clopidogrel Bisulfate 75 MG TABLET PO (09:20)
[2023-12-30] MEDS: Metoprolol Succinate ER 50 MG TAB.ER.24H PO (09:20)
[2023-12-30] MEDS: Aspirin 81 MG TAB.CHEW PO (09:20)
[2023-12-30] MEDS: Finasteride 5 MG TABLET PO (09:20)
[2023-12-30] MEDS: Bethanechol Chloride 25 MG TABLET PO ×3 (09:20→21:30)
[2023-12-30 09:52] VITALS: BP 110/64
[2023-12-30 15:05] VITALS: BP 120/58; PULSE 57; RESP 16; TEMP 36.5; O2SAT 98
[2023-12-30 18:58] VITALS: BP 119/61; PULSE 60; RESP 16; TEMP 36.7; O2SAT 96
[2023-12-30] MEDS: Atorvastatin Calcium 20 MG TABLET PO (21:31)
[2023-12-30] MEDS: Tamsulosin HCL 0.4 MG CAPSULE 0.8 MG PO (21:31)
[2023-12-31] VITALS (7 sets, daily range): BP systolic 114–166; BP diastolic 64–79; PULSE 55–65; RESP 16–20; TEMP 36.2–36.6; O2SAT 95–98
[2023-12-31] MEDS: Omeprazole 20 MG CAPSULE.DR PO (05:45)
[2023-12-31] MEDS: Clopidogrel Bisulfate 75 MG TABLET PO (09:19)
[2023-12-31] MEDS: Bethanechol Chloride 25 MG TABLET PO ×3 (09:19→20:03)
[2023-12-31] MEDS: amLODIPine Besylate 10 MG TABLET PO (09:19)
[2023-12-31] MEDS: 0.9 % Sodium Chloride Flush 3 ML SYRINGE IVFLUSH ×3 (09:20→20:03)
[2023-12-31] MEDS: Metoprolol Succinate ER 50 MG TAB.ER.24H PO (09:20)
[2023-12-31] MEDS: Aspirin 81 MG TAB.CHEW PO (09:20)
[2023-12-31] MEDS: Finasteride 5 MG TABLET PO (09:20)
[2023-12-31] MEDS: Phenytoin Oral Susp 100 MG/4 ML ORAL.SUSP PO ×3 (09:20→20:03)
--- NOTE | 2023-12-31 11:57 | P.PNIM_ITS ---
Subjective Subjective Date of Service: 12/31/23 Interval History: follow up Review of Systems hematuria resolved adames placed 2 night back because of urinary retention, d/w his at baseline he used staright cath at home no fevers or abd pain. Physical Exam 2 Vital Signs: Vital Signs: Last Vital Signs Temp 97.9 F 12/31/23 07:48 Pulse 65 12/31/23 09:20 Resp 16 12/31/23 07:48 BP 161/71 H 12/31/23 09:20 Pulse Ox 97 12/31/23 07:48 O2 Del Method Room Air 12/31/23 07:48 O2 Flow Rate 2 12/24/23 03:20 BMI result Body Mass Index 18.5 Appearance: Alert.? Orientedx2 cvs: rrr, [id number] . res: clear to auscultation ,no rhonchii or wheezing abd: no rebound or guarding ,nt, bs present. ext pulses present , no cyanosis. neuro: axo2 , nonfocal. Objective Data Active Medications Acetaminophen (Acetaminophen Supp 650 Mg Supp.Rect) 650 mg [place] Q4H PRN PRN Reason: fever, h/a, mild pain Last Admin: 12/19/23 14:52 Dose: 650 mg Documented By: RAUL Al Hydroxide/Mg Hydroxide (Magnesium Hydrox/Alum Hydrox 30 Ml Oral.Susp) 30 ml PO Q6H PRN PRN Reason: Heartburn/Nausea Amlodipine Besylate (Amlodipine Besylate 10 Mg Tablet) 10 mg PO DAILY [facility]; Protocol Last Admin: 12/31/23 09:19 Dose: 10 mg Documented By: ANTONIO Aspirin (Aspirin 81 Mg Tab.Chew) 81 mg PO DAILY [facility] Last Admin: 12/31/23 09:20 Dose: 81 mg Documented By: ANTONIO Atorvastatin Calcium (Atorvastatin Calcium 20 Mg Tablet) 20 mg PO BEDTIME [facility] Last Admin: 12/30/23 21:31 Dose: 20 mg Documented By: JASMINA Bethanechol Chloride (Bethanechol Chloride 25 Mg Tablet) 25 mg PO TID [facility] Last Admin: 12/31/23 09:19 Dose: 25 mg Documented By: ANTONIO Calcium Carbonate (Calcium Carbonate 750 Mg Tab.Chew) 750 mg PO Q4H PRN PRN Reason: Heartburn Clopidogrel Bisulfate (Clopidogrel Bisulfate 75 Mg Tablet) 75 mg PO DAILY [facility] Last Admin: 12/31/23 09:19 Dose: 75 mg Documented By: ANTONIO Finasteride (Finasteride 5 Mg Tablet) 5 mg PO DAILY [facility] Last Admin: 12/31/23 09:20 Dose: 5 mg Documented By: ANTONIO Haloperidol (Haloperidol 1 Mg Tablet) 2 mg PO Q6H PRN PRN Reason: agitation Last Admin: 12/23/23 14:09 Dose: 2 mg Documented By: ANTONIO Magnesium Hydroxide (Milk Of Magnesia 30 Ml Oral.Susp) 30 ml PO DAILY PRN PRN Reason: Constipation Melatonin (Melatonin 3 Mg Tablet) 6 mg PO BEDTIME PRN PRN Reason: Insomnia Last Admin: 12/25/23 21:51 Dose: 6 mg Documented By: LIGIA Metoprolol Succinate (Metoprolol Succinate Er 50 Mg Tab.Er.24h) 50 mg PO DAILY [facility]; Protocol Last Admin: 12/31/23 09:20 Dose: 50 mg Documented By: ANTONIO Omeprazole (Omeprazole 20 Mg Capsule.) 20 mg PO DAILY@0630 [facility] Last Admin: 12/31/23 05:45 Dose: 20 mg Documented By: JASMINA Phenytoin (Phenytoin Oral Susp 100 Mg/4 Ml Oral.Susp) 100 mg PO TID [facility] Last Admin: 12/31/23 09:20 Dose: 100 mg Documented By: ANTONIO Sodium Chloride (0.9 % Sodium Chloride Flush 3 Ml Syringe) 3 ml IVFLUSH QSHIFT [facility] Last Admin: 12/31/23 09:20 Dose: 3 ml Documented By: ANTONIO Tamsulosin HCl (Tamsulosin Hcl 0.4 Mg Capsule) 0.8 mg PO BEDTIME [facility] Last Admin: 12/30/23 21:31 Dose: 0.8 mg Documented By: JASMINA Labs 12/25/23 05:27 12/27/23 09:01 Assessment and Plan (1) Aspiration into respiratory tract: Status: Acute Assessment and Plan: 83/F mood disorder, seizure disorder, hypertension, mixed hyperlipidemia, carotid stenosis on DAPT initially admitted to hospitalist service due to acute encephalopathy thought to be secondary to breakthrough partial seizure from [facility]. Had been discharged to geriatric psychiatry now being admitted back to [facility] due to early aspiration pneumonia Acute metabolic encephalopathy d/t aspiration -eeg 12/20, no seizure -overall more coherent but remain confused. Aspiration pneumonia intially was on IV unasyn 3g [id number] to Augmentin completed. Seen by FINANCIAL COMPLIANCE MANAGER-diet. Partial seizure disorder eeg no seizure,seizure precautions chart review:?breakthrough seizures (thought to be given recent med changes) . Recently started on lamictal 12/15 after keppra dc (agitation) then Depakote dc (elevated ammonia). Unlikely to be therapeutic. dilantin 100mg TID, neuro rec to stop lamictal . hypertension- noravasc and metoprolol carotid stenosis-continue aspirin/Plavix unspecified dementia with behavioral disturbance -continue mood stabilizers/antipsychotics as recommended by psychiatry -psychiatry following chronic constipation - lactulose daily since depakote stopped and ammonia normal urinary retention: on flomax, proscar,bethanchol ,failed voiding trial ,has adames again -at baseline at home used star[employer] Time Wine cath prn urology eval. DVT prophylaxis-Lovenox Full code Patient requires ongoing inpatient stay : awaiting placement, urology(requested by infection control) patient requires adames or not. Quality Stroke Does the patient have a stroke diagnosis?: No VTE Prior VTE?: No VTE Risk Level:: Medical - moderate - high VTE Device Contraindication: Treatment Not Indicated VTE Drug Contraindication: N/A - Med Ordered
--- NOTE | 2023-12-31 13:56 | MHC.SL.SWA ---
Speech Pathologist Impression: Risk of Aspiration Dysphasia Diet Status: Recommend continue on Chopped/Advanced (to continue to encourage independence with meals) and Thin Liquids, pills whole with liquid Liquid Consistency and Strategies for Safe Swallow: Liquid Intake Recommendation: Thin Liquid Intake Strategies: Small Sips Solid Food Consistency: Dietary Recommendations: Chopped/Advanced (NDD3) Oral Medication Intake: Whole with Liquid Please contact the pharmacy regarding appropriate crushable or liquid drug formulations that are available whenever modified delivery is recommended. Compensatory Strategies and Precautions to be Taken for Safe Swallow: Sitting Upright (90 deg) Small Bites and Sips Alternate Liquids/Solids Rate of Ingestion Change Supervision While Eating and Drinking for Safe Swallow: Intermittent Supervision Swallowing Recommended Treatments: Compens. Strategy Educat. Recommendation for Speech: 1 f/u [employer] Supervisor Clinican/Clinical Fellow: No Supervisory Statement: I have reviewed and agree with the student/clinical fellow's documentation: N/A Speech Language Pathologist: Sonja Norton M.A., CCC-MANAGER INFORMATION
--- NOTE | 2023-12-31 15:57 | MHC.CM.PN ---
bed search continues
[2023-12-31] MEDS: Atorvastatin Calcium 20 MG TABLET PO (20:03)
[2023-12-31] MEDS: Tamsulosin HCL 0.4 MG CAPSULE 0.8 MG PO (20:03)
[2024-01-01 03:32] VITALS: BP 146/74; PULSE 55; RESP 18; TEMP 36.6; O2SAT 97
[2024-01-01 08:00] VITALS: BP 157/75; PULSE 57; RESP 16; TEMP 36.7; O2SAT 95
[2024-01-01 09:22] VITALS: BP 157/75; PULSE 57
[2024-01-01] MEDS: Aspirin 81 MG TAB.CHEW PO (09:22)
[2024-01-01] MEDS: Phenytoin Oral Susp 100 MG/4 ML ORAL.SUSP PO ×3 (09:22→21:35)
[2024-01-01] MEDS: Metoprolol Succinate ER 50 MG TAB.ER.24H PO (09:22)
--- NOTE | 2024-01-01 09:22 | P.PNIM_ITS ---
Subjective Subjective Date of Service: 01/01/24 Interval History: follow up Review of Systems no new issues, he is calm, cooperative oriented to self, hospital Physical Exam 2 Vital Signs: Vital Signs: Last Vital Signs Temp 98.1 F 01/01/24 08:00 Pulse 57 01/01/24 08:00 Resp 16 01/01/24 08:00 BP 157/75 H 01/01/24 08:00 Pulse Ox 95 01/01/24 08:00 O2 Del Method Room Air 01/01/24 08:00 O2 Flow Rate 2 12/24/23 03:20 BMI result Body Mass Index 18.5 Const: Other: General: AO X 3, no acute distress Resp: CTA bilateral CVS: S1,S2,RRR GI: +BS, NT, no distention Skin: No rash Neuro: motor grossly intact Psych: appropriate affect Objective Data Active Medications Acetaminophen (Acetaminophen Supp 650 Mg Supp.Rect) 650 mg [place] Q4H PRN PRN Reason: fever, h/a, mild pain Last Admin: 12/19/23 14:52 Dose: 650 mg Documented By: RAUL Al Hydroxide/Mg Hydroxide (Magnesium Hydrox/Alum Hydrox 30 Ml Oral.Susp) 30 ml PO Q6H PRN PRN Reason: Heartburn/Nausea Amlodipine Besylate (Amlodipine Besylate 10 Mg Tablet) 10 mg PO DAILY [facility]; Protocol Last Admin: 12/31/23 09:19 Dose: 10 mg Documented By: ANTONIO Aspirin (Aspirin 81 Mg Tab.Chew) 81 mg PO DAILY [facility] Last Admin: 12/31/23 09:20 Dose: 81 mg Documented By: ANTONIO Atorvastatin Calcium (Atorvastatin Calcium 20 Mg Tablet) 20 mg PO BEDTIME [facility] Last Admin: 12/31/23 20:03 Dose: 20 mg Documented By: JASMINA Bethanechol Chloride (Bethanechol Chloride 25 Mg Tablet) 25 mg PO TID [facility] Last Admin: 12/31/23 20:03 Dose: 25 mg Documented By: JASMINA Calcium Carbonate (Calcium Carbonate 750 Mg Tab.Chew) 750 mg PO Q4H PRN PRN Reason: Heartburn Clopidogrel Bisulfate (Clopidogrel Bisulfate 75 Mg Tablet) 75 mg PO DAILY [facility] Last Admin: 12/31/23 09:19 Dose: 75 mg Documented By: ANTONIO Finasteride (Finasteride 5 Mg Tablet) 5 mg PO DAILY [facility] Last Admin: 12/31/23 09:20 Dose: 5 mg Documented By: ANTONIO Haloperidol (Haloperidol 1 Mg Tablet) 2 mg PO Q6H PRN PRN Reason: agitation Last Admin: 12/23/23 14:09 Dose: 2 mg Documented By: ANTONIO Magnesium Hydroxide (Milk Of Magnesia 30 Ml Oral.Susp) 30 ml PO DAILY PRN PRN Reason: Constipation Melatonin (Melatonin 3 Mg Tablet) 6 mg PO BEDTIME PRN PRN Reason: Insomnia Last Admin: 12/25/23 21:51 Dose: 6 mg Documented By: LIGIA Metoprolol Succinate (Metoprolol Succinate Er 50 Mg Tab.Er.24h) 50 mg PO DAILY [facility]; Protocol Last Admin: 12/31/23 09:20 Dose: 50 mg Documented By: ANTONIO Omeprazole (Omeprazole 20 Mg Capsule.Dr) 20 mg PO DAILY@0630 [facility] Last Admin: 01/01/24 05:49 Dose: Not Given Documented By: JASMINA Non-Admin Reason: Patient Refused Phenytoin (Phenytoin Oral Susp 100 Mg/4 Ml Oral.Susp) 100 mg PO TID [facility] Last Admin: 12/31/23 20:03 Dose: 100 mg Documented By: JASMINA Sodium Chloride (0.9 % Sodium Chloride Flush 3 Ml Syringe) 3 ml IVFLUSH QSHIFT [facility] Last Admin: 12/31/23 20:03 Dose: 3 ml Documented By: JASMINA Tamsulosin HCl (Tamsulosin Hcl 0.4 Mg Capsule) 0.8 mg PO BEDTIME [facility] Last Admin: 12/31/23 20:03 Dose: 0.8 mg Documented By: JASMINA Labs 12/25/23 05:27 12/27/23 09:01 Assessment and Plan (1) Aspiration into respiratory tract: Status: Acute Assessment and Plan: 83/F mood disorder, seizure disorder, hypertension, mixed hyperlipidemia, carotid stenosis on DAPT initially admitted to hospitalist service due to acute encephalopathy thought to be secondary to breakthrough partial seizure from [facility]. Had been discharged to geriatric psychiatry now being admitted back to [facility] due to early aspiration pneumonia Acute metabolic encephalopathy d/t aspiration -eeg 12/20, no seizure -overall more coherent but remain confused -according to he has been declining since begnining of the year Aspiration pneumonia--has completed treated with Zosyn and Augmentin MAKE UP GIRL: NDD3, thin liquid Partial seizure disorder -continue Dilantin -Avoid keppra d/t agitation, depakote cause high ammonia HTN--controlled -continue norvasc and motoprolol carotid stenosis-continue aspirin/Plavix unspecified dementia with behavioral disturbance -Haldol per Psych recommendation -psychiatry following chronic constipation -bowel regimen urinary retention -adames cath, failed voiding trial -continu flomax, proscar, bethanchol hematuria--resolved. DVT prophylaxis-Lovenox Full code need for inpt: encephalopathy as above, needs placement Quality Stroke Does the patient have a stroke diagnosis?: No VTE Prior VTE?: No VTE Risk Level:: Medical - moderate - high VTE Device Contraindication: Treatment Not Indicated VTE Drug Contraindication: N/A - Med Ordered
[2024-01-01] MEDS: Bethanechol Chloride 25 MG TABLET PO ×3 (09:23→21:35)
[2024-01-01] MEDS: Finasteride 5 MG TABLET PO (09:23)
[2024-01-01] MEDS: amLODIPine Besylate 10 MG TABLET PO (09:23)
[2024-01-01] MEDS: Clopidogrel Bisulfate 75 MG TABLET PO (09:23)
[2024-01-01] MEDS: 0.9 % Sodium Chloride Flush 3 ML SYRINGE IVFLUSH ×3 (09:27→21:44)
[2024-01-01 10:27] VITALS: BP 157/75; PULSE 57
--- NOTE | 2024-01-01 13:44 | MHC.CM.PN ---
Addendum entered by Alise Grossman 01/01/24 13:57: A VM was left for patient . An update on the bed search was provided. No bed offers have been received. Plan is to touch base with the patients , later this afternoon. [facility] is following. Original Note: PT documentation indicates that the patient does not qualify for STR. His has been notified that there have not been any bed offers. [place] [facility] reviewed and declined to offer a bed. Additional referrals have been sent 2 in [place] and 5 locally. The was informed that she may need to take the patient home with services. She stated that that he is not strong enough. She was informed that the patient no longer qualifies for rehab. Plan is to call the with an update this afternoon.
[2024-01-01 15:20] VITALS: BP 118/59; PULSE 56; RESP 18; TEMP 37.1; O2SAT 95
[2024-01-01 19:51] VITALS: BP 124/58; PULSE 51; RESP 18; TEMP 36.1; O2SAT 96
[2024-01-01] MEDS: Atorvastatin Calcium 20 MG TABLET PO (21:35)
[2024-01-01] MEDS: Tamsulosin HCL 0.4 MG CAPSULE 0.8 MG PO (21:35)
[2024-01-02 03:14] VITALS: BP 142/67; PULSE 55; RESP 16; TEMP 36.8; O2SAT 95
[2024-01-02] MEDS: Omeprazole 20 MG CAPSULE.DR PO (06:06)
[2024-01-02 06:22] LABS: Anion Gap 12 (12-20); Blood Urea Nitrogen 24 mg/dL (9-16); Calcium 8.6 mg/dL (8.4-10.2); Carbon Dioxide 28 mmol/L (22-29); Chloride 101 mmol/L (96-108); Creatinine Clr Calc Pharmacy 45.3; Estimated Glomerular Filt Rate > 60; Glucose Random 98 mg/dL (60-115); Potassium 3.9 mmol/L (3.3-5.1); Sodium 137 mmol/L (135-145)
[2024-01-02 06:27] LABS: Hematocrit 33.4 % (42.0-52.0); Hemoglobin 11.5 g/dl (14.0-18.0); Mean Corpuscular HGB Conc 34.4 g/dl (31.0-36.0); Mean Corpuscular Hemoglobin 33.8 pg (27.0-33.0); Mean Corpuscular Volume 98.2 fL (80.0-98.0); Mean Platelet Volume 9.9 fL (9.4-12.4); Platelet Count 292 X10*3/uL (160-400); Red Cell Distribution Width 14.1 % (11.0-16.0); White Blood Count 7.3 X10*3/uL (4.8-10.8)
[2024-01-02] MEDS: 0.9 % Sodium Chloride Flush 3 ML SYRINGE IVFLUSH ×2 (07:34→15:20)
[2024-01-02 07:54] VITALS: BP 163/76; PULSE 58; RESP 16; TEMP 37.1; O2SAT 96
--- NOTE | 2024-01-02 09:21 | P.PNIM_ITS ---
Subjective Subjective Date of Service: 01/02/24 Interval History: follow up Review of Systems No new issues, has baseline confusion Physical Exam 2 Vital Signs: Vital Signs: Last Vital Signs Temp 98.7 F 01/02/24 07:54 Pulse 58 01/02/24 07:54 Resp 16 01/02/24 07:54 BP 163/76 H 01/02/24 07:54 Pulse Ox 96 01/02/24 07:54 O2 Del Method Room Air 01/02/24 07:54 O2 Flow Rate 2 12/24/23 03:20 BMI result Body Mass Index 18.5 Const: Other: General: AO X 1, no acute distress Resp: CTA bilateral CVS: S1,S2,RRR GI: +BS, NT, no distention Skin: No rash Neuro: motor grossly intact Psych: appropriate affect Objective Data Active Medications Acetaminophen (Acetaminophen Supp 650 Mg Supp.Rect) 650 mg [place] Q4H PRN PRN Reason: fever, h/a, mild pain Last Admin: 12/19/23 14:52 Dose: 650 mg Documented By: RAUL Al Hydroxide/Mg Hydroxide (Magnesium Hydrox/Alum Hydrox 30 Ml Oral.Susp) 30 ml PO Q6H PRN PRN Reason: Heartburn/Nausea Amlodipine Besylate (Amlodipine Besylate 10 Mg Tablet) 10 mg PO DAILY [facility]; Protocol Last Admin: 01/01/24 09:23 Dose: 10 mg Documented By: ANTONIO Aspirin (Aspirin 81 Mg Tab.Chew) 81 mg PO DAILY [facility] Last Admin: 01/01/24 09:22 Dose: 81 mg Documented By: ANTONIO Atorvastatin Calcium (Atorvastatin Calcium 20 Mg Tablet) 20 mg PO BEDTIME [facility] Last Admin: 01/01/24 21:35 Dose: 20 mg Documented By: LIGIA Bethanechol Chloride (Bethanechol Chloride 25 Mg Tablet) 25 mg PO TID [facility] Last Admin: 01/01/24 21:35 Dose: 25 mg Documented By: LIGIA Calcium Carbonate (Calcium Carbonate 750 Mg Tab.Chew) 750 mg PO Q4H PRN PRN Reason: Heartburn Clopidogrel Bisulfate (Clopidogrel Bisulfate 75 Mg Tablet) 75 mg PO DAILY [facility] Last Admin: 01/01/24 09:23 Dose: 75 mg Documented By: ANTONIO Finasteride (Finasteride 5 Mg Tablet) 5 mg PO DAILY [facility] Last Admin: 01/01/24 09:23 Dose: 5 mg Documented By: ANTONIO Haloperidol (Haloperidol 1 Mg Tablet) 2 mg PO Q6H PRN PRN Reason: agitation Last Admin: 12/23/23 14:09 Dose: 2 mg Documented By: ANTONIO Magnesium Hydroxide (Milk Of Magnesia 30 Ml Oral.Susp) 30 ml PO DAILY PRN PRN Reason: Constipation Melatonin (Melatonin 3 Mg Tablet) 6 mg PO BEDTIME PRN PRN Reason: Insomnia Last Admin: 12/25/23 21:51 Dose: 6 mg Documented By: LIGIA Metoprolol Succinate (Metoprolol Succinate Er 50 Mg Tab.Er.24h) 50 mg PO DAILY [facility]; Protocol Last Admin: 01/01/24 09:22 Dose: 50 mg Documented By: ANTONIO Omeprazole (Omeprazole 20 Mg Capsule.Dr) 20 mg PO DAILY@0630 [facility] Last Admin: 01/02/24 06:06 Dose: 20 mg Documented By: LIGIA Phenytoin (Phenytoin Oral Susp 100 Mg/4 Ml Oral.Susp) 100 mg PO TID [facility] Last Admin: 01/01/24 21:35 Dose: 100 mg Documented By: LIGIA Sodium Chloride (0.9 % Sodium Chloride Flush 3 Ml Syringe) 3 ml IVFLUSH QSHIFT [facility] Last Admin: 01/02/24 07:34 Dose: 3 ml Documented By: MARGY Tamsulosin HCl (Tamsulosin Hcl 0.4 Mg Capsule) 0.8 mg PO BEDTIME [facility] Last Admin: 01/01/24 21:35 Dose: 0.8 mg Documented By: LIGIA Labs 01/02/24 05:46 01/02/24 05:46 Labs: Laboratory Results - last 24 hr 01/02/24 05:46 MCV 98.2 H MCH 33.8 H MCHC 34.4 RDW 14.1 Plt Count 292 MPV 9.9 Absolute Nucleated RBC 0.000 Nucleated RBC % (auto) 0.0 Anion Gap 12 Estim Creat Clear Calc 45.3 Estimated GFR > 60 Random Glucose 98 Calcium 8.6 Assessment and Plan (1) Aspiration into respiratory tract: Status: Acute Assessment and Plan: 83/F mood disorder, seizure disorder, hypertension, mixed hyperlipidemia, carotid stenosis on DAPT initially admitted to hospitalist service due to acute encephalopathy thought to be secondary to breakthrough partial seizure from [facility]. 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 DVT prophylaxis-Lovenox Full code need for inpt: encephalopathy as above, needs placement Overall doing well as can be, and presently at baseline, no indication for SNF placement and therefore to be discharged with Quality Stroke Does the patient have a stroke diagnosis?: No VTE Prior VTE?: No VTE Risk Level:: Medical - moderate - high VTE Device Contraindication: Treatment Not Indicated VTE Drug Contraindication: N/A - Med Ordered
[2024-01-02] MEDS: Clopidogrel Bisulfate 75 MG TABLET PO (09:41)
[2024-01-02 09:42] VITALS: BP 109/59; PULSE 63
[2024-01-02] MEDS: Metoprolol Succinate ER 50 MG TAB.ER.24H PO (09:42)
[2024-01-02 09:45] VITALS: BP 109/59
[2024-01-02] MEDS: Aspirin 81 MG TAB.CHEW PO (09:45)
[2024-01-02] MEDS: amLODIPine Besylate 10 MG TABLET PO (09:45)
[2024-01-02] MEDS: Phenytoin Oral Susp 100 MG/4 ML ORAL.SUSP PO ×3 (09:45→20:13)
[2024-01-02] MEDS: Bethanechol Chloride 25 MG TABLET PO ×3 (09:45→20:14)
[2024-01-02] MEDS: Finasteride 5 MG TABLET PO (09:46)
--- NOTE | 2024-01-02 12:10 | MHC.SL.SWA ---
Speech Pathologist Impression: Pt presents with adequate oropharyngeal swallow, no persisting dysphagia. Pt independent in using compensatory strategies such as slow pacing, small bites and sips, alternating consistencies and remaining upright during and after meal. Minimal risk for aspiration d/t pt ability to self monitor and efficiency in coordination of swallow. Dysphasia Diet Status: Recommend upgrade to Regular Solids and maintain Thin Liquids, pills whole with liquid. May require assistance with tray set-up. Liquid Consistency and Strategies for Safe Swallow: Liquid Intake Recommendation: Thin Liquid Intake Strategies: Small Sips Solid Food Consistency: Dietary Recommendations: Regular Additional Modifications to Solid Foods: Oral Medication Intake: Whole with Liquid Please contact the pharmacy regarding appropriate crushable or liquid drug formulations that are available whenever modified delivery is recommended. Compensatory Strategies and Precautions to be Taken for Safe Swallow: Sitting Upright (90 deg) Small Bites and Sips Alternate Liquids/Solids Rate of Ingestion Change Supervision While Eating and Drinking for Safe Swallow: None Needed Foods to Avoid: Swallowing Recommended Treatments: Recommendation for Speech: D/c as pt successfully resumed PO intake of regular diet and thin liquid consistencies Mortgage Branch Manager Clinican/Clinical Fellow: No Supervisory Statement: I have reviewed and agree with the student/clinical fellow's documentation: N/A Speech Language Pathologist: Elizabeth Perez M.A. CCC-FORMAL WAITER/WAITRESS
--- NOTE | 2024-01-02 12:10 | MHC.CM.PN ---
Addendum entered by Alise Grossman 01/02/24 13:34: Patients returned call. She stated her reasons why her should not discharge. All issues have resolved. CM suggested that she come in to see the patient. T/W requested MD call . MD explained to the that the pt is medically cleared. She is requesting to speak with Joselin the psych provider. MD stated that he would facilitate. The IMM was discussed with Mrs Gallego. Once she has spoken with Joselin the IMM and discharge notice and HINN-12 will be given, if she plans to appeal. Original Note: A VM was left for patients . She was informed that MD states that the patient is ready for discharge. The patient has not received any bed offers for STR. PT recommendation is home. The patient does not qualify for STR. Care team has cleared patient to discharge. He does not qualify for a Psych admit. DIGITAL MARKETING STRATEGIST has advance the patient to a regular diet with thin liquids. The VM informed Mrs Gallego of the 3 documents that will be provided to her: 1. IMM 01/02/24, 2 HINN-12 and Detailed notice of discharge. CM call back # provided. A suggestion to speak with the MD about the patients readiness for discharge. [facility] is following for discharge.
[2024-01-02 15:11] VITALS: BP 134/75; PULSE 67; RESP 16; TEMP 37.2; O2SAT 96
--- NOTE | 2024-01-02 17:21 | P.CNUR_ITS ---
History of Present Illness Consult details Consult date: 01/02/24 Narrative: CC: Urinary retention 83-year-old male Admitted to hospital for acute encephalopathy and question of aspiration pneumonia Background mood disorder, seizure disorder Known to have high residuals and bladder Had been optimized on finasteride, tamsulosin bethanechol Failed multiple prior voiding trials Duff catheter indwelling Recommend Duff catheter stay whilst in hospital. Voiding trial when ambulatory Will assess as outpatient for possible suprapubic tube placement Review of Systems 2 Constitutional: Constitutional: Reports as per HPI and Reports no additional constitutional complaints Cardiovascular: Cardiovascular: Reports as per HPI and Reports no additional cardiovascular complaints Respiratory: Respiratory: Reports as per HPI and Reports no additional respiratory complaints Gastrointestinal: Gastrointestinal: Reports as per HPI and Reports no additional gastrointestinal complaints Genitourinary: Genitourinary: Reports as per HPI Musculoskeletal: Musculoskeletal: Reports no additional musculoskeletal complaints and Reports as per HPI Neurologic: Reports system reviewed and no additional complaints, except as documented and Reports as per HPI PMFSH Past Medical History Medical History BPH (benign prostatic hyperplasia) Mixed hyperlipidemia Hypertension Mood disorder Seizure disorder Social History Social History Household Members: Spouse Household Members Other:: 2 Housing: Unknown / Unable to assess Unable to assess alcohol history related to: Unknown Comment: has 1:1 Patient Tobacco Use Status: Never used Tobacco Use of substances other than those prescribed or required for medical reasons: Unable to respond Currently Displaying Signs/Symptoms of Drug Intoxication Withdrawal: No Advance Directives: Yes Advance Directives on File: Yes Advance Directives Date on File: 12/06/23 Do you have a plan to hurt others: No Plan service: No Sexual orientation: Straight/Heterosexual Meds Allergies Allergy/AdvReac Type Severity Reaction Status Date / Time No Known Allergies Allergy Verified 12/06/23 18:16 Active Medications: Current Medications Acetaminophen (Acetaminophen Supp 650 Mg Supp.Rect) 650 mg [place] Q4H PRN PRN Reason: fever, h/a, mild pain Last Admin: 12/19/23 14:52 Dose: 650 mg Al Hydroxide/Mg Hydroxide (Magnesium Hydrox/Alum Hydrox 30 Ml Oral.Susp) 30 ml PO Q6H PRN PRN Reason: Heartburn/Nausea Amlodipine Besylate (Amlodipine Besylate 10 Mg Tablet) 10 mg PO DAILY [facility]; Protocol Last Admin: 01/02/24 09:45 Dose: 10 mg Aspirin (Aspirin 81 Mg Tab.Chew) 81 mg PO DAILY [facility] Last Admin: 01/02/24 09:45 Dose: 81 mg Atorvastatin Calcium (Atorvastatin Calcium 20 Mg Tablet) 20 mg PO BEDTIME [facility] Last Admin: 01/01/24 21:35 Dose: 20 mg Bethanechol Chloride (Bethanechol Chloride 25 Mg Tablet) 25 mg PO TID [facility] Last Admin: 01/02/24 15:20 Dose: 25 mg Calcium Carbonate (Calcium Carbonate 750 Mg Tab.Chew) 750 mg PO Q4H PRN PRN Reason: Heartburn Clopidogrel Bisulfate (Clopidogrel Bisulfate 75 Mg Tablet) 75 mg PO DAILY [facility] Last Admin: 01/02/24 09:41 Dose: 75 mg Finasteride (Finasteride 5 Mg Tablet) 5 mg PO DAILY [facility] Last Admin: 01/02/24 09:46 Dose: 5 mg Haloperidol (Haloperidol 1 Mg Tablet) 2 mg PO Q6H PRN PRN Reason: agitation Last Admin: 12/23/23 14:09 Dose: 2 mg Magnesium Hydroxide (Milk Of Magnesia 30 Ml Oral.Susp) 30 ml PO DAILY PRN PRN Reason: Constipation Melatonin (Melatonin 3 Mg Tablet) 6 mg PO BEDTIME PRN PRN Reason: Insomnia Last Admin: 12/25/23 21:51 Dose: 6 mg Metoprolol Succinate (Metoprolol Succinate Er 50 Mg Tab.Er.24h) 50 mg PO DAILY [facility]; Protocol Last Admin: 01/02/24 09:42 Dose: 50 mg Omeprazole (Omeprazole 20 Mg Capsule.Dr) 20 mg PO DAILY@0630 [facility] Last Admin: 01/02/24 06:06 Dose: 20 mg Phenytoin (Phenytoin Oral Susp 100 Mg/4 Ml Oral.Susp) 100 mg PO TID [facility] Last Admin: 01/02/24 15:20 Dose: 100 mg Sodium Chloride (0.9 % Sodium Chloride Flush 3 Ml Syringe) 3 ml IVFLUSH QSHIFT [facility] Last Admin: 01/02/24 15:20 Dose: 3 ml Tamsulosin HCl (Tamsulosin Hcl 0.4 Mg Capsule) 0.8 mg PO BEDTIME [facility] Last Admin: 01/01/24 21:35 Dose: 0.8 mg Physical Exam 2 Vital Signs: Vital Signs: Last Vital Signs Temp 99 F 01/02/24 15:11 Pulse 67 01/02/24 15:11 Resp 16 01/02/24 15:11 BP 134/75 01/02/24 15:11 Pulse Ox 96 01/02/24 15:11 O2 Del Method Room Air 01/02/24 15:11 O2 Flow Rate 2 12/24/23 03:20 BMI result Body Mass Index 18.5 Const: General: cooperative, healthy appearing, comfortable and no acute distress Orientation/consciousness: patient oriented x3 HEENT: Face and sinus: Yes normal facial exam Mouth: moist mucous membranes Neck: Neck: Yes normal visual inspection, Yes full ROM and Yes trachea midline Chest: Chest palpation & inspection: normal inspection of the chest Resp: Effort & Inspection: normal respiratory effort, able to speak in complete sentences and no respiratory distress GI: Inspection: Yes normal to inspection Back/Spine/Pelvis: Cervical Spine: normal cervical lordosis Thoracic/Lumbar Spine: thoracic and lumbar spine normal to inspection Skin: General skin exam: no rashes or lesions noted Neuro: General: patient oriented x3, tone normal and moves all extremities Extrem: General: Yes normal to inspection and Yes capillary refill normal Results Labs 01/02/24 05:46 01/02/24 05:46 Labs: Abnormal lab results 01/02/24 Range/Units 05:46 RBC 3.40 L (4.60-5.80) X10*6/uL Hgb 11.5 L (14.0-18.0) g/dl Hct 33.4 L (42.0-52.0) % MCV 98.2 H (80.0-98.0) fL MCH 33.8 H (27.0-33.0) pg BUN 24 H (9-16) mg/dL Short CBC 01/02/24 Range/Units 05:46 WBC 7.3 (4.8-10.8) X10*3/uL Hgb 11.5 L (14.0-18.0) g/dl Hct 33.4 L (42.0-52.0) % Plt Count 292 (160-400) X10*3/uL BMP 01/02/24 05:46 Sodium 137 Potassium 3.9 Chloride 101 Carbon Dioxide 28 BUN 24 H Creatinine 0.93 Calcium 8.6 All other labs normal. Assessment and Plan (1) Hypotonic neurogenic bladder: Status: Acute (2) BPH (benign prostatic hyperplasia): Status: Acute Plan Outpatient voiding trial with assessment for suprapubic tube placement Procedures Date of Service Date of Service: 01/02/24
[2024-01-02 20:00] VITALS: BP 143/62; PULSE 64; RESP 15; TEMP 37.4; O2SAT 95
[2024-01-02] MEDS: Atorvastatin Calcium 20 MG TABLET PO (20:14)
[2024-01-02] MEDS: Tamsulosin HCL 0.4 MG CAPSULE 0.8 MG PO (20:14)
[2024-01-03 04:00] VITALS: BP 163/78; PULSE 63; RESP 15; TEMP 37.1; O2SAT 93
[2024-01-03] MEDS: Omeprazole 20 MG CAPSULE.DR PO (06:24)
[2024-01-03 07:52] VITALS: BP 169/82; PULSE 65; RESP 18; TEMP 36.1; O2SAT 94
[2024-01-03] MEDS: Metoprolol Succinate ER 50 MG TAB.ER.24H PO (08:02)
[2024-01-03] MEDS: Clopidogrel Bisulfate 75 MG TABLET PO (08:02)
[2024-01-03] MEDS: amLODIPine Besylate 10 MG TABLET PO (08:02)
[2024-01-03] MEDS: Finasteride 5 MG TABLET PO (08:02)
[2024-01-03] MEDS: 0.9 % Sodium Chloride Flush 3 ML SYRINGE IVFLUSH ×2 (08:02→14:37)
[2024-01-03] MEDS: Phenytoin Oral Susp 100 MG/4 ML ORAL.SUSP PO ×3 (08:02→21:21)
[2024-01-03] MEDS: Bethanechol Chloride 25 MG TABLET PO ×3 (08:02→21:21)
[2024-01-03] MEDS: Aspirin 81 MG TAB.CHEW PO (08:02)
--- NOTE | 2024-01-03 08:23 | P.PNIM_ITS ---
Subjective Subjective Date of Service: 01/03/24 Interval History: follow up Review of Systems Overall mental status has improved, but remains confused no acute issues Physical Exam 2 Vital Signs: Vital Signs: Last Vital Signs Temp 96.9 F 01/03/24 07:52 Pulse 65 01/03/24 07:52 Resp 18 01/03/24 07:52 BP 169/82 H 01/03/24 07:52 Pulse Ox 94 01/03/24 07:52 O2 Del Method Room Air 01/03/24 07:52 O2 Flow Rate 2 12/24/23 03:20 BMI result Body Mass Index 18.5 Const: Other: General: AO X 1, no acute distress Resp: CTA bilateral CVS: S1,S2,RRR GI: +BS, NT, no distention Skin: No rash Neuro: motor grossly intact Psych: appropriate affect Objective Data Active Medications Acetaminophen (Acetaminophen Supp 650 Mg Supp.Rect) 650 mg [place] Q4H PRN PRN Reason: fever, h/a, mild pain Last Admin: 12/19/23 14:52 Dose: 650 mg Documented By: RAUL Al Hydroxide/Mg Hydroxide (Magnesium Hydrox/Alum Hydrox 30 Ml Oral.Susp) 30 ml PO Q6H PRN PRN Reason: Heartburn/Nausea Amlodipine Besylate (Amlodipine Besylate 10 Mg Tablet) 10 mg PO DAILY [facility]; Protocol Last Admin: 01/03/24 08:02 Dose: 10 mg Documented By: SAMANTHA Aspirin (Aspirin 81 Mg Tab.Chew) 81 mg PO DAILY [facility] Last Admin: 01/03/24 08:02 Dose: 81 mg Documented By: SAMANTHA Atorvastatin Calcium (Atorvastatin Calcium 20 Mg Tablet) 20 mg PO BEDTIME [facility] Last Admin: 01/02/24 20:14 Dose: 20 mg Documented By: TAI Bethanechol Chloride (Bethanechol Chloride 25 Mg Tablet) 25 mg PO TID [facility] Last Admin: 01/03/24 08:02 Dose: 25 mg Documented By: SAMANHTA Calcium Carbonate (Calcium Carbonate 750 Mg Tab.Chew) 750 mg PO Q4H PRN PRN Reason: Heartburn Clopidogrel Bisulfate (Clopidogrel Bisulfate 75 Mg Tablet) 75 mg PO DAILY [facility] Last Admin: 01/03/24 08:02 Dose: 75 mg Documented By: SAMANTHA Finasteride (Finasteride 5 Mg Tablet) 5 mg PO DAILY [facility] Last Admin: 01/03/24 08:02 Dose: 5 mg Documented By: SAMANTHA Haloperidol (Haloperidol 1 Mg Tablet) 2 mg PO Q6H PRN PRN Reason: agitation Last Admin: 12/23/23 14:09 Dose: 2 mg Documented By: ANTONIO Magnesium Hydroxide (Milk Of Magnesia 30 Ml Oral.Susp) 30 ml PO DAILY PRN PRN Reason: Constipation Melatonin (Melatonin 3 Mg Tablet) 6 mg PO BEDTIME PRN PRN Reason: Insomnia Last Admin: 12/25/23 21:51 Dose: 6 mg Documented By: LIGIA Metoprolol Succinate (Metoprolol Succinate Er 50 Mg Tab.Er.24h) 50 mg PO DAILY [facility]; Protocol Last Admin: 01/03/24 08:02 Dose: 50 mg Documented By: SAMANTHA Omeprazole (Omeprazole 20 Mg Capsule.Dr) 20 mg PO DAILY@0630 [facility] Last Admin: 01/03/24 06:24 Dose: 20 mg Documented By: TAI Phenytoin (Phenytoin Oral Susp 100 Mg/4 Ml Oral.Susp) 100 mg PO TID [facility] Last Admin: 01/03/24 08:02 Dose: 100 mg Documented By: SAMANTHA Sodium Chloride (0.9 % Sodium Chloride Flush 3 Ml Syringe) [facility] Last Admin: 01/03/24 08:02 Dose: 3 ml Documented By: SAMANTHA Tamsulosin HCl (Tamsulosin Hcl 0.4 Mg Capsule) 0.8 mg PO BEDTIME [facility] Last Admin: 01/02/24 20:14 Dose: 0.8 mg Documented By: TAI Labs 01/02/24 05:46 01/02/24 05:46 Assessment and Plan (1) Aspiration into respiratory tract: Status: Acute Assessment and Plan: 83/F mood disorder, seizure disorder, hypertension, mixed hyperlipidemia, carotid stenosis on DAPT initially admitted to hospitalist service due to acute encephalopathy thought to be secondary to breakthrough partial seizure from [facility]. 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 If persistently high add hydralazine carotid stenosis-continue aspirin/Plavix chronic constipation -bowel regimen urinary retention -failed multiple voiding trials, uro rec keeping adames in, outpatient voiding trial -continu flomax, proscar, bethanchol hematuria--resolved. DVT prophylaxis-Lovenox stopped d/t hematuria, on compression stocking add heparin again and monitor for sings of bleeding Full code need for inpt: encephalopathy as above, needs placement Overall doing well as can be, and presently at baseline, no indication for SNF placement and therefore to be discharged with Quality Stroke Does the patient have a stroke diagnosis?: No VTE Prior VTE?: No VTE Risk Level:: Medical - moderate - high VTE Device Contraindication: Treatment Not Indicated VTE Drug Contraindication: N/A - Med Ordered
[2024-01-03] MEDS: Heparin Sodium,Porcine 5,000 UNIT/ML VIAL 5000 UNIT SUBCUT ×2 (09:06→21:17)
--- NOTE | 2024-01-03 10:47 | P.CNPS_ITS ---
History of Present Illness Date of Service: 01/03/2024 Chief Complaint: aspriration pneumonia, acute metabolic encephalopa Requesting physician: Anjel Sinha Discussed with referring provider: Yes Sources of Information: patient interviewed, chart reviewed and crisis/core team assessment reviewed HPI Narrative: Interim Hx: pt presents as pleasant. His speech is intelligible and attention seems intact. He denies depressed mood. He also denies SI/HI. No overt delusions or psychosis. No combative behaviors. However, pt very impaired cognitively at baseline. He does know he is in the hospital, not sure why he is here, states I had a stroke at beginning of this year, I don't know. No recollection unless prompted about events leading initially to psych admission, which were SI/HI. He does not know any of his current medical conditions, he does not know what medications he is on. Severe impairments in ability to recall information, process more complex information, executive function. He requires 24/7 supervision, which has expressed not able to provide. May need placement in memory unit in [facility]. Past Psychiatric History: IP: Denies OP: Denies [facility] Medical History BPH (benign prostatic hyperplasia) Mixed hyperlipidemia Hypertension Mood disorder Seizure disorder Family History: none Social History: Pt has been for 52 years. He worked for [employer]. He lives with . He has an adult daughter. Trauma History: none Diagnostics Vital Signs (24Hr): Vital Signs - 24 hr 01/02/24 15:11 01/02/24 20:00 01/03/24 04:00 Temperature 99 F 99.3 F 98.7 F Pulse Rate 67 64 63 Respiratory Rate 16 15 15 Blood Pressure 134/75 143/62 H 163/78 H Pulse Oximetry 96 95 93 Oxygen Delivery Method Room Air Room Air Room Air 01/03/24 07:52 Temperature 96.9 F Pulse Rate 65 Respiratory Rate 18 Blood Pressure 169/82 H Pulse Oximetry 94 Oxygen Delivery Method Room Air BMI result Body Mass Index 18.5 Labs 01/02/24 05:46 01/02/24 05:46 Labs: Laboratory Results - last 48 hr 01/02/24 05:46 WBC 7.3 RBC 3.40 L Hgb 11.5 L Hct 33.4 L MCV 98.2 H MCH 33.8 H MCHC 34.4 RDW 14.1 Plt Count 292 MPV 9.9 Absolute Nucleated RBC 0.000 Nucleated RBC % (auto) 0.0 Sodium 137 Potassium 3.9 Chloride 101 Carbon Dioxide 28 Anion Gap 12 BUN 24 H Creatinine 0.93 Estim Creat Clear Calc 45.3 Estimated GFR > 60 Random Glucose 98 Calcium 8.6 Mental Status Exam Mental Status Exam Narrative: Appearance: wearing hospital gown, lying in bed, in NAD Behavior: cooperative. Psychomotor: no PMA/OMR Speech: more clear, regular rate/rhythm, more spontaneous TC: denies SI/HI TP:feeling Mood: better Affect: bit brighter than before but constricted range. SI: denies, HI: none expressed VH/AH: no signs Delusions: no overt signs Insight/judgment: impaired x 2. Memory/cog: alert, oriented to being in a hospital but does not know where, not why he is here, nor year nor month. Severe cognitive impairments in language fluency, recall, orientation, executive function, visuo spatial skills. these are signs of underlying dementia, not of delirium. Medications Medications Current Medications Acetaminophen (Acetaminophen Supp 650 Mg Supp.Rect) 650 mg [place] Q4H PRN PRN Reason: fever, h/a, mild pain Last Admin: 12/19/23 14:52 Dose: 650 mg Al Hydroxide/Mg Hydroxide (Magnesium Hydrox/Alum Hydrox 30 Ml Oral.Susp) 30 ml PO Q6H PRN PRN Reason: Heartburn/Nausea Amlodipine Besylate (Amlodipine Besylate 10 Mg Tablet) 10 mg PO DAILY [facility]; Protocol Last Admin: 01/03/24 08:02 Dose: 10 mg Aspirin (Aspirin 81 Mg Tab.Chew) 81 mg PO DAILY [facility] Last Admin: 01/03/24 08:02 Dose: 81 mg Atorvastatin Calcium (Atorvastatin Calcium 20 Mg Tablet) 20 mg PO BEDTIME [facility] Last Admin: 01/02/24 20:14 Dose: 20 mg Bethanechol Chloride (Bethanechol Chloride 25 Mg Tablet) 25 mg PO TID [facility] Last Admin: 01/03/24 08:02 Dose: 25 mg Calcium Carbonate (Calcium Carbonate 750 Mg Tab.Chew) 750 mg PO Q4H PRN PRN Reason: Heartburn Clopidogrel Bisulfate (Clopidogrel Bisulfate 75 Mg Tablet) 75 mg PO DAILY [facility] Last Admin: 01/03/24 08:02 Dose: 75 mg Finasteride (Finasteride 5 Mg Tablet) 5 mg PO DAILY [facility] Last Admin: 01/03/24 08:02 Dose: 5 mg Haloperidol (Haloperidol 1 Mg Tablet) 2 mg PO Q6H PRN PRN Reason: agitation Last Admin: 12/23/23 14:09 Dose: 2 mg Heparin Sodium (Porcine) (Heparin Sodium,Porcine 5,000 Unit/Ml Vial) 5,000 unit SUBCUT Q12H [facility] Last Admin: 01/03/24 09:06 Dose: 5,000 unit Magnesium Hydroxide (Milk Of Magnesia 30 Ml Oral.Susp) 30 ml PO DAILY PRN PRN Reason: Constipation Melatonin (Melatonin 3 Mg Tablet) 6 mg PO BEDTIME PRN PRN Reason: Insomnia Last Admin: 12/25/23 21:51 Dose: 6 mg Metoprolol Succinate (Metoprolol Succinate Er 50 Mg Tab.Er.24h) 50 mg PO DAILY [facility]; Protocol Last Admin: 01/03/24 08:02 Dose: 50 mg Pantoprazole Sodium (Pantoprazole Sodium 20 Mg Tablet.Dr) 20 mg PO DAILY@0630 [facility] Phenytoin (Phenytoin Oral Susp 100 Mg/4 Ml Oral.Susp) 100 mg PO TID [facility] Last Admin: 01/03/24 08:02 Dose: 100 mg Sodium Chloride (0.9 % Sodium Chloride Flush 3 Ml Syringe) 3 ml IVFLUSH QSHIFT [facility] Last Admin: 01/03/24 08:02 Dose: 3 ml Tamsulosin HCl (Tamsulosin Hcl 0.4 Mg Capsule) 0.8 mg PO BEDTIME [facility] Last Admin: 01/02/24 20:14 Dose: 0.8 mg Allergies Allergies Allergy/AdvReac Type Severity Reaction Status Date / Time No Known Allergies Allergy Verified 12/06/23 18:16 Assessment & Plan Assessment & Plan (1) Major neurocognitive disorder due to another medical condition with behavioral disturbance: Status: Acute Code(s): F02.818 - Dementia in other diseases classified elsewhere, unspecified severity, with other behavioral disturbance Plan In terms of delirium, pt appears much clear from delirium and seems like this is baseline which does show significant memory and cognitive impairments. He has significant language impairments, problems with orientation, retaining informations. He is sensitive to effects of medications, which may have contributed to overall presentation of delirium. PLAN 1. No acute psychiatric symptoms related to dementia. No agitation, no psychosis. No SI/HI. Denies depression. However, he is severely impaired in terms of cognition/memory- not oriented to situation or year, inability to process more complex information, inability to retain information, impaired executive function. He requires 24/7 supervision, which has expressed not able to provide. May need placement in memory unit in [facility]. Total time managing care of this patient today ____ minutes.
--- NOTE | 2024-01-03 11:19 | MHC.CM.PN ---
Addendum entered by Alise Grossman 01/03/24 13:28: Spoke with Mrs Gallego via phone. She has reached out to LTC insurance. She was provided with coverage information for SNF memory unit. She was instructed to call today to inquire about [facility] memory care coverage. She is in the process of completing an application for [facility]. They are affiliated with [facility]. The patient has been to [facility] in the past and liked it very much. [facility](Psych focus) will follow him at de to the [facility] memory care unit. They will provide services in the memory care unit. They will assess him to determine if home is a safe option at some point. CM will follow for placement. The IMM has not been given due to no safe discharge plan yet. Original Note: Patient has been evaluated by Psych today. The recommendation is for 247 care. Patients is not able to provide care at home safely. The provider recommends a Memory unit at an [facility]. A VM was left this am for pts . The message regarded the recommended dispo. Contact info was left for the 2 [facility] Memory care units. A suggestion to tour the facilities was made by T/W. She was also reminded to contact [employer] for the LTC policy info. CM will continue to follow.
[2024-01-03 15:25] VITALS: BP 140/59; PULSE 65; RESP 16; TEMP 36.5; O2SAT 95
[2024-01-03 19:26] VITALS: BP 128/67; PULSE 60; RESP 16; TEMP 36.8; O2SAT 96
[2024-01-03] MEDS: Atorvastatin Calcium 20 MG TABLET PO (21:20)
[2024-01-03] MEDS: Tamsulosin HCL 0.4 MG CAPSULE 0.8 MG PO (21:20)
[2024-01-04] MEDS: 0.9 % Sodium Chloride Flush 3 ML SYRINGE IVFLUSH ×3 (00:16→18:03)
[2024-01-04 03:23] VITALS: BP 156/74; PULSE 63; RESP 16; TEMP 36.5; O2SAT 98
--- NOTE | 2024-01-04 05:37 | P.PNIM_ITS ---
Subjective Subjective Date of Service: 01/04/24 Interval History: Remains at baseline confsuion, no agitation, cooperative Physical Exam 2 Vital Signs: Vital Signs: Last Vital Signs Temp 97.7 F 01/04/24 03:23 Pulse 63 01/04/24 03:23 Resp 16 01/04/24 03:23 BP 156/74 H 01/04/24 03:23 Pulse Ox 98 01/04/24 03:23 O2 Del Method Room Air 01/04/24 03:23 O2 Flow Rate 2 12/24/23 03:20 BMI result Body Mass Index 18.5 Const: Other: General: AO X 1, no acute distress Resp: CTA bilateral CVS: S1,S2,RRR GI: +BS, NT, no distention Skin: No rash Neuro: motor grossly intact Psych: appropriate affect Objective Data Active Medications Acetaminophen (Acetaminophen Supp 650 Mg Supp.Rect) 650 mg [place] Q4H PRN PRN Reason: fever, h/a, mild pain Last Admin: 12/19/23 14:52 Dose: 650 mg Documented By: RAUL Al Hydroxide/Mg Hydroxide (Magnesium Hydrox/Alum Hydrox 30 Ml Oral.Susp) 30 ml PO Q6H PRN PRN Reason: Heartburn/Nausea Amlodipine Besylate (Amlodipine Besylate 10 Mg Tablet) 10 mg PO DAILY [facility]; Protocol Last Admin: 01/03/24 08:02 Dose: 10 mg Documented By: SAMANTHA Aspirin (Aspirin 81 Mg Tab.Chew) 81 mg PO DAILY [facility] Last Admin: 01/03/24 08:02 Dose: 81 mg Documented By: SAMANTHA Atorvastatin Calcium (Atorvastatin Calcium 20 Mg Tablet) 20 mg PO BEDTIME [facility] Last Admin: 01/03/24 21:20 Dose: 20 mg Documented By: DARIEN Bethanechol Chloride (Bethanechol Chloride 25 Mg Tablet) 25 mg PO TID [facility] Last Admin: 01/03/24 21:21 Dose: 25 mg Documented By: DARIEN Calcium Carbonate (Calcium Carbonate 750 Mg Tab.Chew) 750 mg PO Q4H PRN PRN Reason: Heartburn Clopidogrel Bisulfate (Clopidogrel Bisulfate 75 Mg Tablet) 75 mg PO DAILY [facility] Last Admin: 01/03/24 08:02 Dose: 75 mg Documented By: SAMANTHA Finasteride (Finasteride 5 Mg Tablet) 5 mg PO DAILY [facility] Last Admin: 01/03/24 08:02 Dose: 5 mg Documented By: SAMANTHA Haloperidol (Haloperidol 1 Mg Tablet) 2 mg PO Q6H PRN PRN Reason: agitation Last Admin: 12/23/23 14:09 Dose: 2 mg Documented By: ANTONIO Heparin Sodium (Porcine) (Heparin Sodium,Porcine 5,000 Unit/Ml Vial) 5,000 unit SUBCUT Q12H [facility] Last Admin: 01/03/24 21:17 Dose: 5,000 unit Documented By: DARIEN Magnesium Hydroxide (Milk Of Magnesia 30 Ml Oral.Susp) 30 ml PO DAILY PRN PRN Reason: Constipation Melatonin (Melatonin 3 Mg Tablet) 6 mg PO BEDTIME PRN PRN Reason: Insomnia Last Admin: 12/25/23 21:51 Dose: 6 mg Documented By: LIGIA Metoprolol Succinate (Metoprolol Succinate Er 50 Mg Tab.Er.24h) 50 mg PO DAILY [facility]; Protocol Last Admin: 01/03/24 08:02 Dose: 50 mg Documented By: SAMANTHA Pantoprazole Sodium (Pantoprazole Sodium 20 Mg Tablet.Dr) 20 mg PO DAILY@0630 [facility] Phenytoin (Phenytoin Oral Susp 100 Mg/4 Ml Oral.Susp) 100 mg PO TID [facility] Last Admin: 01/03/24 21:21 Dose: 100 mg Documented By: DARIEN Sodium Chloride (0.9 % Sodium Chloride Flush 3 Ml Syringe) 3 ml IVFLUSH QSHIFT [facility] Last Admin: 01/04/24 00:16 Dose: 3 ml Documented By: KASSIDY Tamsulosin HCl (Tamsulosin Hcl 0.4 Mg Capsule) 0.8 mg PO BEDTIME [facility] Last Admin: 01/03/24 21:20 Dose: 0.8 mg Documented By: DARIEN Labs 01/02/24 05:46 01/02/24 05:46 Assessment and Plan (1) Aspiration into respiratory tract: Status: Acute Assessment and Plan: 83/F mood disorder, seizure disorder, hypertension, mixed hyperlipidemia, carotid stenosis on DAPT initially admitted to hospitalist service due to acute encephalopathy thought to be secondary to breakthrough partial seizure from [facility]. 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 If persistently high add hydralazine carotid stenosis-continue aspirin/Plavix chronic constipation -bowel regimen urinary retention -failed multiple voiding trials, uro rec keeping adames in, outpatient voiding trial -continu flomax, proscar, bethanchol hematuria--resolved. DVT prophylaxis-Lovenox stopped d/t hematuria, on compression stocking heparin, monitor for signs of bleeding Full code need for inpt: encephalopathy as above, needs placement Overall doing well as can be, and presently at baseline, no indication for SNF placement and therefore to be discharged with Quality Stroke Does the patient have a stroke diagnosis?: No VTE Prior VTE?: No VTE Risk Level:: Medical - moderate - high VTE Device Contraindication: Treatment Not Indicated VTE Drug Contraindication: N/A - Med Ordered
[2024-01-04] MEDS: Pantoprazole Sodium 20 MG TABLET.DR PO (05:44)
[2024-01-04 07:25] VITALS: BP 171/79; PULSE 52; RESP 18; TEMP 36.3; O2SAT 94
[2024-01-04] MEDS: Finasteride 5 MG TABLET PO (09:28)
[2024-01-04] MEDS: Aspirin 81 MG TAB.CHEW PO (09:28)
[2024-01-04] MEDS: Phenytoin Oral Susp 100 MG/4 ML ORAL.SUSP PO ×3 (09:29→20:04)
[2024-01-04] MEDS: Metoprolol Succinate ER 50 MG TAB.ER.24H PO (09:29)
[2024-01-04] MEDS: Heparin Sodium,Porcine 5,000 UNIT/ML VIAL 5000 UNIT SUBCUT ×2 (09:29→20:03)
[2024-01-04] MEDS: Bethanechol Chloride 25 MG TABLET PO ×3 (09:29→20:03)
[2024-01-04] MEDS: amLODIPine Besylate 10 MG TABLET PO (09:29)
[2024-01-04] MEDS: Clopidogrel Bisulfate 75 MG TABLET PO (09:29)
--- NOTE | 2024-01-04 09:51 | MHC.CLN ---
F/U DIET=REGULAR WITH THIN LIQUIDS. ENSURE BID TO PROMOTE NUTRITIONAL INTAKE. SUPPLEMENT PROVIDES 700 KCALS, 40 G PROTEIN. USUAL INTAKE 75-100%. REDDENED COCCYX. FOLLOW FOR PLAN OF CARE AND INTAKE. RD TO FOLLOW WEEKLY.
[2024-01-04 15:11] VITALS: BP 124/60; PULSE 57; RESP 16; TEMP 36.3; O2SAT 96
--- NOTE | 2024-01-04 15:14 | MHC.CM.PN ---
PTS IS CURRENTLY COMPLETING CORRECTION APPLICATIONS AND ATTEMPTING TO DETERMINE IF PTS LTC INSURANCE WILL COVER ANY PART OF THE COST CM WILL FOLLOW UP ON SUNDAY
[2024-01-04 19:57] VITALS: BP 153/76; PULSE 60; RESP 18; TEMP 36.7; O2SAT 96
[2024-01-04] MEDS: Tamsulosin HCL 0.4 MG CAPSULE 0.8 MG PO (20:03)
[2024-01-04] MEDS: Atorvastatin Calcium 20 MG TABLET PO (20:03)
[2024-01-05 03:44] VITALS: BP 130/62; PULSE 58; RESP 18; TEMP 36.6; O2SAT 93
[2024-01-05] MEDS: Pantoprazole Sodium 20 MG TABLET.DR PO (05:55)
[2024-01-05 08:00] VITALS: BP 121/59; PULSE 51; RESP 18; TEMP 36.9; O2SAT 96
--- NOTE | 2024-01-05 09:29 | P.PNIM_ITS ---
Subjective Subjective Date of Service: 01/05/24 Interval History: doing well, he's alert oriented to self, place and date Physical Exam 2 Vital Signs: Vital Signs: Last Vital Signs Temp 98.4 F 01/05/24 08:00 Pulse 51 01/05/24 08:00 Resp 18 01/05/24 08:00 BP 121/59 L 01/05/24 08:00 Pulse Ox 96 01/05/24 08:00 O2 Del Method Room Air 01/05/24 08:00 O2 Flow Rate 2 12/24/23 03:20 BMI result Body Mass Index 18.5 Const: Other: General: AO X 3, no acute distress Resp: CTA bilateral CVS: S1,S2,RRR GI: +BS, NT, no distention Skin: No rash Neuro: motor grossly intact Psych: appropriate affect Objective Data Active Medications Acetaminophen (Acetaminophen Supp 650 Mg Supp.Rect) 650 mg [place] Q4H PRN PRN Reason: fever, h/a, mild pain Last Admin: 12/19/23 14:52 Dose: 650 mg Documented By: RAUL Al Hydroxide/Mg Hydroxide (Magnesium Hydrox/Alum Hydrox 30 Ml Oral.Susp) 30 ml PO Q6H PRN PRN Reason: Heartburn/Nausea Amlodipine Besylate (Amlodipine Besylate 10 Mg Tablet) 10 mg PO DAILY [facility] 234 BEDS AT THE [facility]; Protocol Last Admin: 01/04/24 09:29 Dose: 10 mg Documented By: ANNI Aspirin (Aspirin 81 Mg Tab.Chew) 81 mg PO DAILY [facility]S INCLUDE 234 BEDS AT THE [facility] Last Admin: 01/04/24 09:28 Dose: 81 mg Documented By: ANNI Atorvastatin Calcium (Atorvastatin Calcium 20 Mg Tablet) 20 mg PO BEDTIME COUNTS INCLUDE 234 BEDS AT THE [facility] Last Admin: 01/04/24 20:03 Dose: 20 mg Documented By: TAI Bethanechol Chloride (Bethanechol Chloride 25 Mg Tablet) 25 mg PO TID COUNTS INCLUDE 234 BEDS AT THE [facility] Last Admin: 01/04/24 20:03 Dose: 25 mg Documented By: TAI Calcium Carbonate (Calcium Carbonate 750 Mg Tab.Chew) 750 mg PO Q4H PRN PRN Reason: Heartburn Clopidogrel Bisulfate (Clopidogrel Bisulfate 75 Mg Tablet) 75 mg PO DAILY [facility]S INCLUDE 234 BEDS AT THE [facility] Last Admin: 01/04/24 09:29 Dose: 75 mg Documented By: ANNI Finasteride (Finasteride 5 Mg Tablet) 5 mg PO DAILY [facility]S INCLUDE 234 BEDS AT THE [facility] Last Admin: 01/04/24 09:28 Dose: 5 mg Documented By: ANNI Haloperidol (Haloperidol 1 Mg Tablet) 2 mg PO Q6H PRN PRN Reason: agitation Last Admin: 12/23/23 14:09 Dose: 2 mg Documented By: ANTONIO Heparin Sodium (Porcine) (Heparin Sodium,Porcine 5,000 Unit/Ml Vial) 5,000 unit SUBCUT Q12H COUNTS INCLUDE 234 BEDS AT THE [facility] Last Admin: 01/04/24 20:03 Dose: 5,000 unit Documented By: TAI Magnesium Hydroxide (Milk Of Magnesia 30 Ml Oral.Susp) 30 ml PO DAILY PRN PRN Reason: Constipation Melatonin (Melatonin 3 Mg Tablet) 6 mg PO BEDTIME PRN PRN Reason: Insomnia Last Admin: 12/25/23 21:51 Dose: 6 mg Documented By: LIGIA Metoprolol Succinate (Metoprolol Succinate Er 50 Mg Tab.Er.24h) 50 mg PO DAILY [facility]S INCLUDE 234 BEDS AT THE [facility]; Protocol Last Admin: 01/04/24 09:29 Dose: 50 mg Documented By: ANNI Pantoprazole Sodium (Pantoprazole Sodium 20 Mg Tablet.Dr) 20 mg PO DAILY@0630 [facility]S INCLUDE 234 BEDS AT THE [facility] Last Admin: 01/05/24 05:55 Dose: 20 mg Documented By: TAI Phenytoin (Phenytoin Oral Susp 100 Mg/4 Ml Oral.Susp) 100 mg PO TID COUNTS INCLUDE 234 BEDS AT THE [facility] Last Admin: 01/04/24 20:04 Dose: 100 mg Documented By: TAI Sodium Chloride (0.9 % Sodium Chloride Flush 3 Ml Syringe) 3 ml IVFLUSH QSHIFT COUNTS INCLUDE 234 BEDS AT THE [facility] Last Admin: 01/05/24 01:04 Dose: Not Given Documented By: TAI Non-Admin Reason: Patient Asleep Tamsulosin HCl (Tamsulosin Hcl 0.4 Mg Capsule) 0.8 mg PO BEDTIME COUNTS INCLUDE 234 BEDS AT THE [facility] Last Admin: 01/04/24 20:03 Dose: 0.8 mg Documented By: TAI Labs 01/02/24 05:46 01/02/24 05:46 Assessment and Plan (1) Aspiration into respiratory tract: Status: Acute Assessment and Plan: 83/F mood disorder, seizure disorder, hypertension, mixed hyperlipidemia, carotid stenosis on DAPT initially admitted to hospitalist service due to acute encephalopathy thought to be secondary to breakthrough partial seizure from [facility]. 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 If persistently high add hydralazine carotid stenosis-continue aspirin/Plavix chronic constipation -bowel regimen urinary retention, chronic, did self-catheterization at [facility] -failed multiple voiding trials, uro rec keeping adames in and outpatient voiding trial -continue flomax, proscar, bethanchol hematuria--resolved. DVT prophylaxis-heparin, no, compression device, out of bed and ambulate Full code need for inpt: encephalopathy as above, needs placement awaiting safe disposition Quality Stroke Does the patient have a stroke diagnosis?: No VTE Prior VTE?: No VTE Risk Level:: Medical - moderate - high VTE Device Contraindication: Treatment Not Indicated VTE Drug Contraindication: N/A - Med Ordered
[2024-01-05] MEDS: Finasteride 5 MG TABLET PO (09:47)
[2024-01-05] MEDS: Phenytoin Oral Susp 100 MG/4 ML ORAL.SUSP PO ×2 (09:47→15:13)
[2024-01-05] MEDS: Metoprolol Succinate ER 50 MG TAB.ER.24H PO (09:48)
[2024-01-05] MEDS: Bethanechol Chloride 25 MG TABLET PO ×2 (09:48→15:14)
[2024-01-05] MEDS: amLODIPine Besylate 10 MG TABLET PO (09:48)
[2024-01-05] MEDS: Aspirin 81 MG TAB.CHEW PO (09:48)
[2024-01-05] MEDS: Heparin Sodium,Porcine 5,000 UNIT/ML VIAL 5000 UNIT SUBCUT (09:49)
[2024-01-05] MEDS: Clopidogrel Bisulfate 75 MG TABLET PO (09:49)
[2024-01-05] MEDS: 0.9 % Sodium Chloride Flush 3 ML SYRINGE IVFLUSH (09:55)
[2024-01-05 14:15] LABS: CDiff Gene PCR POSITIVE (Negative)
[2024-01-05 14:57] LABS: CDIFF Internal ctrl Dots and bkg OK (V)
[2024-01-05 14:58] LABS: CDiff Toxin Positive (Negative)
[2024-01-05] MEDS: vancomycin HCL 125 MG CAPSULE PO (15:14)
[2024-01-05 16:00] VITALS: BP 129/74; PULSE 51; RESP 16; TEMP 37.2; O2SAT 93
--- NOTE | 2024-01-05 16:44 | PC.NURSE ---
D/Cd #20 IV from R FA d/t leaking and past due, aware, no new access required.
[2024-01-05 20:00] VITALS: BP 117/63; PULSE 61; RESP 15; TEMP 37.6; O2SAT 94
[2024-01-05 22:02] VITALS: BP 150/69; PULSE 60; RESP 18; O2SAT 92
[2024-01-05 22:08] LABS: Glucose, Whole Blood 113 mg/dL (60-115)
[2024-01-05 22:28] VITALS: TEMP 37.6
[2024-01-05 22:51] LABS: MANUAL DIFF FLAG NO
[2024-01-05 22:52] LABS: Basophils Percent Auto 0.5 % (0-2); Eosinophils Absolute Auto 0.3 X10*3/uL (0.0-0.4); Eosinophils Percent Auto 3.6 % (0-4); Hematocrit 33.5 % (42.0-52.0); Hemoglobin 11.7 g/dl (14.0-18.0); Imm Gran Abs Auto 0.12 X10*3/uL (0.00-0.03); Imm Gran Pct Auto 1.6 % (0.0-0.4); Lymphocytes Absolute Auto 0.9 X10*3/uL (1.2-4.9); Lymphocytes Percent Auto 11.2 % (20-40); Mean Corpuscular HGB Conc 34.9 g/dl (31.0-36.0); Mean Corpuscular Hemoglobin 34.1 pg (27.0-33.0); Mean Corpuscular Volume 97.7 fL (80.0-98.0); Mean Platelet Volume 9.6 fL (9.4-12.4); Monocytes Absolute Auto 0.7 X10*3/uL (0.1-1.2); Monocytes Percent Auto 9.2 % (2-11); Neutrophils Absolute Auto 5.6 x10*3/uL (2.0-8.3); Neutrophils Percent Auto 73.9 % (45-73); Platelet Count 288 X10*3/uL (160-400); Red Blood Count 3.43 X10*6/uL (4.60-5.80); Red Cell Distribution Width 14.6 % (11.0-16.0); White Blood Count 7.6 X10*3/uL (4.8-10.8)
[2024-01-05 22:54] LABS: Venous Blood Gas Refer to POC result
[2024-01-05 22:55] LABS: VBG Base Excess 3.6 mmol/L; VBG HCO3 28 mmol/L (22-26); VBG pCO2 45 mmHg; VBG pO2 48 mmHg
--- NOTE | 2024-01-05 22:57 | PHA.PROG ---
Admission Date/Time: December 18, 2023 18:31 Indication: BACTEREMIA Weight in k.2 kg Adjusted body weight in Kg: Howe body weight in Kg: Obesity Dosing Indication % IBW: Serum Creatinine - Last 168 Hours 01/02/24 05:46 Creatinine 0.93 Estimated CrCl and GFR - Last 168 Hours 01/02/24 05:46 Estim Creat Clear Calc 45.3 Estimated GFR > 60 Vancomycin Loading Dose: 1500 Current Vancomycin Dosing Regimen:1250 MG Q 24 HOURS Vancomycin Monitoring using AUC goal of 400 - 600 range with trough as surrogate marker: PREDICTED AUC 581 Date and Time for next Vancomycin Level to be drawn: LEVEL TO BE CHECKED 01/07/24 2100 Pharmacist Comments on Vancomycin Plan: Vancomycin dosing will take advantage of [employer] as a clinical decision support tool that uses Bayesian modeling to calculate individual patient's pharmacokinetic parameters and forecast the patient's drug concentration time course with the target goal AUC 24 range of 400 - 600 mg/L/hr.
[2024-01-05 23:02] LABS: Ammonia 37 umol/L (13-55)
[2024-01-05 23:06] LABS: Lactic Acid 0.9 mmol/L (0.5-2.0)
[2024-01-05 23:13] LABS: Alanine Aminotransferase 84 U/L (0-40); Albumin Level 3.2 g/dL (3.5-5.0); Alkaline Phosphatase 117 U/L (39-117); Anion Gap 13 (12-20); Aspartate Amino Transferase 41 U/L (5-37); Bilirubin Total 0.2 mg/dL (0.0-1.0); Blood Urea Nitrogen 30 mg/dL (9-16); Calcium 8.9 mg/dL (8.4-10.2); Carbon Dioxide 25 mmol/L (22-29); Chloride 102 mmol/L (96-108); Creatinine Clr Calc Pharmacy 48.4; Estimated Glomerular Filt Rate > 60; Glucose Random 103 mg/dL (60-115); Potassium 3.7 mmol/L (3.3-5.1); Sodium 136 mmol/L (135-145); Total Protein 6.1 g/dL (6.5-8.0)
[2024-01-05] MEDS: vancomycin HCL 1,500 MG in 0.9 % Sodium Chloride 500 ML 333.33 MG IV (23:24)
[2024-01-06 00:29] LABS: Appearance Urine Cloudy; Color Urine Yellow; Glucose Urine UA Negative (Negative); Leukocyte Esterase Urine Moderate (2+) (Negative); Nitrite Urine Positive (Negative); PH 5.5 (5.0-9.0); UMIC TRIGGER UACC YES; Urine Blood Small (1+) (Negative); Urine Ketones Negative (Negative); Urine Protein 30 (1+) mg/dL (Neg-Trace)
[2024-01-06 00:48] LABS: Bacteria Urine 4+ (None Seen); RBC Urine 0-2 /HPF (0-2); UACC Culture Trigger YES; WBC Urine >50 /HPF (0-5)
[2024-01-06] MEDS: metroNIDAZOLE/NS 500 MG/100 ML PIGGYBACK 100 MG IV ×4 (01:00→23:26)
[2024-01-06 03:13] VITALS: BP 143/76; PULSE 80; RESP 18; TEMP 36.2; O2SAT 95
--- NOTE | 2024-01-06 04:20 | PC.NURSE ---
Addendum entered by Dorinda Kendall RN 01/06/24 05:19: Late entry: After pt was giving 1st dose of IV antibiotic of Vano, pt was more alert and orientated, able to tell me where he was, and what year it was. MD Travis was notified of the update. Pt's bed in lowest position, call burnette within reach and camera in room. Will continue to monitor pt's mental status. Original Note: Late entry: Upon assuming care of pt at 19:00, pt was A&Ox3(forgetful), impulsive, trying to get out of burnette without assist. This RN walked the pt to the bathroom, able to hold conversation, and returned back to bed. This RN returned to pt's bedside with AYDEN night time medications, pt was in bed with eyes closed, arousable to name. When it was time to administered his medications, pt was staring at TV, refusing to take his medications, kept on saying NO . MD Travis was notified of the situation. IV Flagyl was ordered but pt had no IV access. New IV #22 was placed to R forearm by Nursing Curriculum Development Specialist. While getting an new IV pt's had a changed of mental status compare to beginning of shift. Pt was lethargic,unable to be arouse by light touch, eyes closed, not responding to staff. VSS and POC 113. MD Travis was notified and came to pt's bedside. Pt' was warm to touch, rectal temp off 99.6. MD Travis placed new orders: labs, blood/urine cultures, CT Head, CXR, and IV antibiotics. Pending results. Will continue to monitor pt's mental status.
--- NOTE | 2024-01-06 05:41 | PM.EVENT ---
Event Note Date of Service: 01/06/24 Event Note: 9:56 PM -notified by nursing that patient has a changed of mental status since 7 PM. He is now lethargic and has been refusing his medications including vancomycin PO. VS stable 10:15 PM - pt evaluated, obtunded, responsive only to painful stimuli and do not follow commands. He is VERY WARMTH to touch. Rectal temp checked 99.6. Head CT scan obtained - negative. Labs stat obtained and basically unremarkable except for minimal elevation of transaminases. Urinalysis has been obtained (patient has indwelling urinary catheter) and is remarkable for UTI. CXR is negative. Patient is currently receiving treatment with Unasyn. Therapy with vancomycin and Flagyl IV has been added as the patient is unable to take vancomycin PO. Blood cultures X2 repeated -results pending. Time Spent With Patient Time: Total time managing care of this patient today ____ minutes.
--- NOTE | 2024-01-06 07:26 | P.PNIM_ITS ---
Subjective Subjective Date of Service: 01/06/24 Interval History: Over reportedly pt evaluated, obtunded, responsive only to painful stimuli and do not follow commands. He is VERY WARMTH to touch. Rectal temp checked 99.6. Head CT scan obtained - negative. Labs stat obtained and basically unremarkable except for minimal elevation of transaminases. Urinalysis has been obtained (patient has indwelling urinary catheter) and is remarkable for UTI. CXR is negative. He was given IV Vano. Patient later spontaneously woke up and has been at is his baseline, it is unclear what happened but sounds like he had seizure. He was diagnosed with C dif earlier yesterday Physical Exam 2 Vital Signs: Vital Signs: Last Vital Signs Temp 97.1 F 01/06/24 03:13 Pulse 80 01/06/24 03:13 Resp 18 01/06/24 03:13 BP 143/76 H 01/06/24 03:13 Pulse Ox 95 01/06/24 03:13 O2 Del Method Room Air 01/06/24 03:13 O2 Flow Rate 2 12/24/23 03:20 BMI result Body Mass Index 18.5 Objective Data Active Medications Acetaminophen (Acetaminophen Supp 650 Mg Supp.Rect) 650 mg MS Q4H PRN PRN Reason: fever, h/a, mild pain Last Admin: 12/19/23 14:52 Dose: 650 mg Documented By: RAUL Al Hydroxide/Mg Hydroxide (Magnesium Hydrox/Alum Hydrox 30 Ml Oral.Susp) 30 ml PO Q6H PRN PRN Reason: Heartburn/Nausea Amlodipine Besylate (Amlodipine Besylate 10 Mg Tablet) 10 mg PO DAILY [facility]; Protocol Last Admin: 01/05/24 09:48 Dose: 10 mg Documented By: LIZABETH Aspirin (Aspirin 81 Mg Tab.Chew) 81 mg PO DAILY [facility] Last Admin: 01/05/24 09:48 Dose: 81 mg Documented By: LIZABETH Atorvastatin Calcium (Atorvastatin Calcium 20 Mg Tablet) 20 mg PO BEDTIME [facility] Last Admin: 01/05/24 21:30 Dose: Not Given Documented By: FISH Non-Admin Reason: Patient Refused Bethanechol Chloride (Bethanechol Chloride 25 Mg Tablet) 25 mg PO TID [facility] Last Admin: 01/05/24 21:30 Dose: Not Given Documented By: FISH Non-Admin Reason: Patient Refused Calcium Carbonate (Calcium Carbonate 750 Mg Tab.Chew) 750 mg PO Q4H PRN PRN Reason: Heartburn Clopidogrel Bisulfate (Clopidogrel Bisulfate 75 Mg Tablet) 75 mg PO DAILY [facility] Last Admin: 01/05/24 09:49 Dose: 75 mg Documented By: LIZABETH Finasteride (Finasteride 5 Mg Tablet) 5 mg PO DAILY [facility] Last Admin: 01/05/24 09:47 Dose: 5 mg Documented By: LIZABETH Haloperidol (Haloperidol 1 Mg Tablet) 2 mg PO Q6H PRN PRN Reason: agitation Last Admin: 12/23/23 14:09 Dose: 2 mg Documented By: ANTONIO Heparin Sodium (Porcine) (Heparin Sodium,Porcine 5,000 Unit/Ml Vial) 5,000 unit SUBCUT Q12H [facility] Last Admin: 01/05/24 21:30 Dose: Not Given Documented By: FISH Non-Admin Reason: Patient Refused Vancomycin HCl 1,250 mg/ (Sodium Chloride) 250 mls @ 166.667 mls/hr IV Q24H [facility] Metronidazole (Flagyl) 500 mg in 100 mls @ 100 mls/hr IV 0000,0800,1600 [facility] Last Infusion: 01/06/24 02:17 Dose: Infused Documented By: FISH Magnesium Hydroxide (Milk Of Magnesia 30 Ml Oral.Susp) 30 ml PO DAILY PRN PRN Reason: Constipation Melatonin (Melatonin 3 Mg Tablet) 6 mg PO BEDTIME PRN PRN Reason: Insomnia Last Admin: 12/25/23 21:51 Dose: 6 mg Documented By: LIGIA Metoprolol Succinate (Metoprolol Succinate Er 50 Mg Tab.Er.24h) 50 mg PO DAILY [facility]; Protocol Last Admin: 01/05/24 09:48 Dose: 50 mg Documented By: LIZABETH Pantoprazole Sodium (Pantoprazole Sodium 20 Mg Tablet.Dr) 20 mg PO DAILY@0630 [facility] Last Admin: 01/06/24 05:28 Dose: Not Given Documented By: FISH Non-Admin Reason: Patient Refused Pharmacy Consult (Consult Rx Vancomycin Dosing) 1 each MISCELLANE DAILY PRN PRN Reason: Consult order Phenytoin (Phenytoin Oral Susp 100 Mg/4 Ml Oral.Susp) 100 mg PO TID [facility] Last Admin: 01/05/24 21:30 Dose: Not Given Documented By: FISH Non-Admin Reason: Patient Refused Sodium Chloride (0.9 % Sodium Chloride Flush 3 Ml Syringe) 3 ml IVFLUSH QSHIFT [facility] Last Admin: 01/06/24 01:17 Dose: Not Given Documented By: FISH Non-Admin Reason: IV Running Tamsulosin HCl (Tamsulosin Hcl 0.4 Mg Capsule) 0.8 mg PO BEDTIME [facility] Last Admin: 01/05/24 21:30 Dose: Not Given Documented By: FISH Non-Admin Reason: Patient Refused Vancomycin HCl (Vancomycin Hcl 125 Mg Capsule) 125 mg PO Q6H [facility] Labs 01/05/24 22:45 01/05/24 22:44 Labs: Laboratory Results - last 24 hr 01/05/24 01/05/24 01/05/24 13:11 21:57 22:43 MCV MCH MCHC RDW Plt Count MPV Immature Gran % (Auto) Neut % (Auto) Lymph % (Auto) [place] % (Auto) Eos % (Auto) Baso % (Auto) Lymph # (Auto) [place] # (Auto) Eos # (Auto) Baso # (Auto) Abs Immat Gran (auto) Absolute Neuts (auto) Absolute Nucleated RBC Nucleated RBC % (auto) VBG pH VBG pCO2 VBG pO2 VBG HCO3 VBG O2 Saturation VBG Base Excess Anion Gap Estim Creat Clear Calc Estimated GFR POC Glucose 113 Random Glucose Lactic Acid 0.9 Calcium Magnesium Total Bilirubin AST ALT Alkaline Phosphatase Ammonia Total Protein Albumin Urine Color Urine Appearance Urine pH Ur Specific [place] Urine Protein Urine Glucose (UA) Urine Ketones Urine Blood Urine Nitrite Ur Leukocyte Esterase Urine RBC Urine WBC Ur Squamous Epith Cells Urine Bacteria Hyaline Casts C. difficile Tox B Gene POSITIVE A* C. difficile Toxin A&B Positive A* C. difficile Interpret SEE NOTE 01/05/24 01/05/24 01/05/24 22:44 22:45 22:51 MCV 97.7 MCH 34.1 H MCHC 34.9 RDW 14.6 Plt Count 288 MPV 9.6 Immature Gran % (Auto) 1.6 H Neut % (Auto) 73.9 H Lymph % (Auto) 11.2 L [place] % (Auto) 9.2 Eos % (Auto) 3.6 Baso % (Auto) 0.5 Lymph # (Auto) 0.9 L [place] # (Auto) 0.7 Eos # (Auto) 0.3 Baso # (Auto) 0.0 Abs Immat Gran (auto) 0.12 H Absolute Neuts (auto) 5.6 Absolute Nucleated RBC 0.000 Nucleated RBC % (auto) 0.0 VBG pH 7.40 VBG pCO2 45 VBG pO2 48 VBG HCO3 28 H VBG O2 Saturation 78.0 VBG Base Excess 3.6 Anion Gap 13 Estim Creat Clear Calc 48.4 Estimated GFR > 60 POC Glucose Random Glucose 103 Lactic Acid Calcium 8.9 Magnesium 2.0 Total Bilirubin 0.2 AST 41 H ALT 84 H Alkaline Phosphatase 117 Ammonia 37 Total Protein 6.1 L Albumin 3.2 L Urine Color Urine Appearance Urine pH Ur Specific [place] Urine Protein Urine Glucose (UA) Urine Ketones Urine Blood Urine Nitrite Ur Leukocyte Esterase Urine RBC Urine WBC Ur Squamous Epith Cells Urine Bacteria Hyaline Casts C. difficile Tox B Gene C. difficile Toxin A&B C. difficile Interpret 01/05/24 23:42 MCV MCH MCHC RDW Plt Count MPV Immature Gran % (Auto) Neut % (Auto) Lymph % (Auto) [place] % (Auto) Eos % (Auto) Baso % (Auto) Lymph # (Auto) [place] # (Auto) Eos # (Auto) Baso # (Auto) Abs Immat Gran (auto) Absolute Neuts (auto) Absolute Nucleated RBC Nucleated RBC % (auto) VBG pH VBG pCO2 VBG pO2 VBG HCO3 VBG O2 Saturation VBG Base Excess Anion Gap Estim Creat Clear Calc Estimated GFR POC Glucose Random Glucose Lactic Acid Calcium Magnesium Total Bilirubin AST ALT Alkaline Phosphatase Ammonia Total Protein Albumin Urine Color Yellow Urine Appearance Cloudy Urine pH 5.5 Ur Specific [place] 1.020 Urine Protein 30 (1+) H Urine Glucose (UA) Negative Urine Ketones Negative Urine Blood Small (1+) H Urine Nitrite Positive H Ur Leukocyte Esterase Moderate (2+) H Urine RBC 0-2 Urine WBC >50 H Ur Squamous Epith Cells 6-10 Urine Bacteria 4+ Hyaline Casts 11-20 C. difficile Tox B Gene C. difficile Toxin A&B C. difficile Interpret Assessment and Plan (1) Aspiration into respiratory tract: Status: Acute Assessment and Plan: 83/F mood disorder, seizure disorder, hypertension, mixed hyperlipidemia, carotid stenosis on DAPT initially admitted to hospitalist service due to acute encephalopathy thought to be secondary to breakthrough partial seizure from [facility]. Had been discharged to geriatric psychiatry now being admitted back to [facility] due to early aspiration pneumonia Overnight episode of unresponsiveness--negative sepsis work up, ammonia normal, It appeared he had seizure Acute metabolic encephalopathy d/t aspiration--resolved -eeg 12/20, no seizure -alert and oriented x 3 -according to he has been declining since beginning of the year C dif--continue IV Flagyl and PO vanco UTI--no fever, normal WBC -Ceftriaxone 01/05 unspecified dementia with behavioral disturbance -Haldol per Psych recommendation, hasn't received a dose since 12/22 -psychiatry following -lacks capacity to make decision -HCP invoked () Aspiration pneumonia--has completed treatment with Zosyn and Augmentin 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 If persistently high add hydralazine carotid stenosis-continue aspirin/Plavix chronic constipation -bowel regimen urinary retention, chronic, [facility]failed multiple voiding trials, uro rec keeping adames in and outpatient voiding trial -continue flomax, proscar, bethanchol hematuria--resolved. DVT prophylaxis-heparin, no, compression device, out of bed and ambulate Full code need for inpt: encephalopathy as above, needs placement awaiting safe disposition Quality Stroke Does the patient have a stroke diagnosis?: No VTE Prior VTE?: No VTE Risk Level:: Medical - moderate - high VTE Device Contraindication: Treatment Not Indicated VTE Drug Contraindication: N/A - Med Ordered
[2024-01-06 08:00] VITALS: BP 162/80; PULSE 63; RESP 16; TEMP 36.8; O2SAT 97
[2024-01-06 09:06] LABS: Creatinine Clr Calc Pharmacy 48.4; Estimated Glomerular Filt Rate > 60
[2024-01-06] MEDS: Phenytoin Oral Susp 100 MG/4 ML ORAL.SUSP PO ×3 (09:26→20:41)
[2024-01-06] MEDS: Heparin Sodium,Porcine 5,000 UNIT/ML VIAL 5000 UNIT SUBCUT ×2 (09:26→20:41)
[2024-01-06] MEDS: vancomycin HCL 125 MG CAPSULE PO ×3 (09:27→20:42)
[2024-01-06] MEDS: Aspirin 81 MG TAB.CHEW PO (09:27)
[2024-01-06] MEDS: Clopidogrel Bisulfate 75 MG TABLET PO (09:27)
[2024-01-06] MEDS: Metoprolol Succinate ER 50 MG TAB.ER.24H PO (09:27)
[2024-01-06] MEDS: amLODIPine Besylate 10 MG TABLET PO (09:28)
[2024-01-06] MEDS: Bethanechol Chloride 25 MG TABLET PO ×3 (09:28→20:42)
[2024-01-06] MEDS: Finasteride 5 MG TABLET PO (09:28)
[2024-01-06] MEDS: 0.9 % Sodium Chloride Flush 3 ML SYRINGE IVFLUSH ×2 (09:29→20:41)
--- NOTE | 2024-01-06 09:42 | HE.PHANOTE ---
Re: Vanco Renal function improving. Continue current dose, next trough 01/06 at 2100.
[2024-01-06] MEDS: cefTRIAXone sodium 1 GM in 0.9 % Sodium Chloride 50 ML IV (09:44)
[2024-01-06 15:51] VITALS: BP 139/67; PULSE 51; RESP 16; TEMP 37.2; O2SAT 96
[2024-01-06 20:00] VITALS: BP 147/67; PULSE 60; RESP 16; TEMP 37.1; O2SAT 94
[2024-01-06] MEDS: Tamsulosin HCL 0.4 MG CAPSULE 0.8 MG PO (20:42)
[2024-01-06] MEDS: Melatonin 3 MG TABLET 6 MG PO (20:42)
[2024-01-06] MEDS: Atorvastatin Calcium 20 MG TABLET PO (20:42)
[2024-01-07] MEDS: vancomycin HCL 125 MG CAPSULE PO ×4 (00:45→20:29)
[2024-01-07 03:24] VITALS: BP 145/70; PULSE 54; RESP 16; TEMP 36.9; O2SAT 96
[2024-01-07 06:34] LABS: Hematocrit 30.9 % (42.0-52.0); Hemoglobin 10.6 g/dl (14.0-18.0); Mean Corpuscular HGB Conc 34.3 g/dl (31.0-36.0); Mean Platelet Volume 9.8 fL (9.4-12.4); Platelet Count 251 X10*3/uL (160-400); Red Blood Count 3.12 X10*6/uL (4.60-5.80); Red Cell Distribution Width 14.8 % (11.0-16.0); White Blood Count 5.8 X10*3/uL (4.8-10.8)
[2024-01-07 06:53] LABS: Anion Gap 12 (12-20); Blood Urea Nitrogen 24 mg/dL (9-16); Calcium 8.4 mg/dL (8.4-10.2); Carbon Dioxide 25 mmol/L (22-29); Chloride 103 mmol/L (96-108); Creatinine Clr Calc Pharmacy 49.6; Estimated Glomerular Filt Rate > 60; Glucose Random 90 mg/dL (60-115); Potassium 3.9 mmol/L (3.3-5.1); Sodium 136 mmol/L (135-145)
[2024-01-07 07:48] VITALS: BP 166/82; PULSE 60; RESP 16; TEMP 36; O2SAT 94
[2024-01-07] MEDS: Bethanechol Chloride 25 MG TABLET PO ×3 (08:02→20:30)
[2024-01-07] MEDS: Aspirin 81 MG TAB.CHEW PO (08:02)
[2024-01-07] MEDS: Finasteride 5 MG TABLET PO (08:02)
[2024-01-07] MEDS: Phenytoin Oral Susp 100 MG/4 ML ORAL.SUSP PO ×3 (08:03→20:30)
[2024-01-07] MEDS: amLODIPine Besylate 10 MG TABLET PO (08:03)
[2024-01-07] MEDS: Heparin Sodium,Porcine 5,000 UNIT/ML VIAL 5000 UNIT SUBCUT ×2 (08:03→20:30)
[2024-01-07] MEDS: Clopidogrel Bisulfate 75 MG TABLET PO (08:03)
[2024-01-07] MEDS: Metoprolol Succinate ER 50 MG TAB.ER.24H PO (08:03)
[2024-01-07] MEDS: 0.9 % Sodium Chloride Flush 3 ML SYRINGE IVFLUSH ×3 (08:04→20:40)
[2024-01-07] MEDS: metroNIDAZOLE/NS 500 MG/100 ML PIGGYBACK 100 MG IV (08:05)
--- NOTE | 2024-01-07 08:34 | MHC.CM.PN ---
Addendum entered by Mary Yusuf 01/07/24 11:46: PT WILL NOT NEED A TB TEST, CXR COMPLETED ON 01/05/24 Original Note: PTS BROUG[facility] IN [facility] SHE IS SUBMITTING APPLICATIONS TO FOR PT. [facility] WILL REQUIRE A PHYSICIANS REPORT TO BE COMPLETED PRIOR TO APPLICATION REVIEW PT WILL NEED A TB TEST TO BE COMPLETED FOR THIS APPLICATION SHE IS ALSO APPLYING TO [employer], HOWEVER HAS NOT PROVIDED ANY PAPERWORK AT THIS TIME
--- NOTE | 2024-01-07 08:38 | P.PNIM_ITS ---
Subjective Subjective Date of Service: 01/07/24 Interval History: f/u on uti, c dif, encephalopathy doing well no new issues, alert, cooperative Physical Exam 2 Vital Signs: Vital Signs: Last Vital Signs Temp 96.8 F 01/07/24 07:48 Pulse 60 01/07/24 07:48 Resp 16 01/07/24 07:48 BP 166/82 H 01/07/24 07:48 Pulse Ox 94 01/07/24 07:48 O2 Del Method Room Air 01/07/24 03:24 O2 Flow Rate 2 12/24/23 03:20 BMI result Body Mass Index 18.5 Const: Other: General: AO X 3, no acute distress Resp: CTA bilateral CVS: S1,S2,RRR GI: +BS, NT, no distention Skin: No rash Neuro: motor grossly intact Psych: appropriate affect Objective Data Active Medications Acetaminophen (Acetaminophen Supp 650 Mg Supp.Rect) 650 mg [place] Q4H PRN PRN Reason: fever, h/a, mild pain Last Admin: 12/19/23 14:52 Dose: 650 mg Documented By: RAUL Al Hydroxide/Mg Hydroxide (Magnesium Hydrox/Alum Hydrox 30 Ml Oral.Susp) 30 ml PO Q6H PRN PRN Reason: Heartburn/Nausea Amlodipine Besylate (Amlodipine Besylate 10 Mg Tablet) 10 mg PO DAILY [facility]; Protocol Last Admin: 01/07/24 08:03 Dose: 10 mg Documented By: MARGY Aspirin (Aspirin 81 Mg Tab.Chew) 81 mg PO DAILY [facility] Last Admin: 01/07/24 08:02 Dose: 81 mg Documented By: MARGY Atorvastatin Calcium (Atorvastatin Calcium 20 Mg Tablet) 20 mg PO BEDTIME [facility] Last Admin: 01/06/24 20:42 Dose: 20 mg Documented By: XU Bethanechol Chloride (Bethanechol Chloride 25 Mg Tablet) 25 mg PO TID [facility] Last Admin: 01/07/24 08:02 Dose: 25 mg Documented By: MARGY Calcium Carbonate (Calcium Carbonate 750 Mg Tab.Chew) 750 mg PO Q4H PRN PRN Reason: Heartburn Clopidogrel Bisulfate (Clopidogrel Bisulfate 75 Mg Tablet) 75 mg PO DAILY [facility] Last Admin: 01/07/24 08:03 Dose: 75 mg Documented By: MARGY Finasteride (Finasteride 5 Mg Tablet) 5 mg PO DAILY [facility] Last Admin: 01/07/24 08:02 Dose: 5 mg Documented By: MARGY Haloperidol (Haloperidol 1 Mg Tablet) 2 mg PO Q6H PRN PRN Reason: agitation Last Admin: 12/23/23 14:09 Dose: 2 mg Documented By: ANTONIO Heparin Sodium (Porcine) (Heparin Sodium,Porcine 5,000 Unit/Ml Vial) 5,000 unit SUBCUT Q12H [facility] Last Admin: 01/07/24 08:03 Dose: 5,000 unit Documented By: MARGY Metronidazole (Flagyl) 500 mg in 100 mls @ 100 mls/hr IV 0000,0800,1600 [facility] Last Admin: 01/07/24 08:05 Dose: 100 mls/hr Documented By: MARGY Ceftriaxone Sodium 1 gm/ (Sodium Chloride) 50 mls @ 100 mls/hr IV Q24H [facility] Last Infusion: 01/06/24 10:14 Dose: Infused Documented By: ANNI Magnesium Hydroxide (Milk Of Magnesia 30 Ml Oral.Susp) 30 ml PO DAILY PRN PRN Reason: Constipation Melatonin (Melatonin 3 Mg Tablet) 6 mg PO BEDTIME PRN PRN Reason: Insomnia Last Admin: 01/06/24 20:42 Dose: 6 mg Documented By: XU Metoprolol Succinate (Metoprolol Succinate Er 50 Mg Tab.Er.24h) 50 mg PO DAILY [facility]; Protocol Last Admin: 01/07/24 08:03 Dose: 50 mg Documented By: MARGY Pantoprazole Sodium (Pantoprazole Sodium 20 Mg Tablet.) 20 mg PO DAILY@0630 [facility] Last Admin: 01/07/24 06:18 Dose: Not Given Documented By: XU Non-Admin Reason: Patient Refused Phenytoin (Phenytoin Oral Susp 100 Mg/4 Ml Oral.Susp) 100 mg PO TID [facility] Last Admin: 01/07/24 08:03 Dose: 100 mg Documented By: MARGY Sodium Chloride (0.9 % Sodium Chloride Flush 3 Ml Syringe) 3 ml IVFLUSH QSHIFT [facility] Last Admin: 01/07/24 08:04 Dose: 3 ml Documented By: MARGY Tamsulosin HCl (Tamsulosin Hcl 0.4 Mg Capsule) 0.8 mg PO BEDTIME [facility] Last Admin: 01/06/24 20:42 Dose: 0.8 mg Documented By: XU Vancomycin HCl (Vancomycin Hcl 125 Mg Capsule) 125 mg PO Q6H [facility] Last Admin: 01/07/24 08:03 Dose: 125 mg Documented By: MARGY Labs 01/07/24 05:32 01/07/24 05:32 Labs: Laboratory Results - last 24 hr 01/06/24 01/07/24 08:18 05:32 MCV 99.0 H MCH 34.0 H MCHC 34.3 RDW 14.8 Plt Count 251 MPV 9.8 Absolute Nucleated RBC 0.000 Nucleated RBC % (auto) 0.0 Anion Gap 12 Estim Creat Clear Calc 48.4 49.6 Estimated GFR > 60 > 60 Random Glucose 90 Calcium 8.4 Microbiology Microbiology Results: Microbiology 01/05/24 22:46 Blood Culture - Preliminary Blood - Venous No growth after 24 hours. 01/05/24 22:46 Blood Culture - Preliminary Blood - Venous No growth after 24 hours. Assessment and Plan (1) Aspiration into respiratory tract: Status: Acute Assessment and Plan: 83/F mood disorder, seizure disorder, hypertension, mixed hyperlipidemia, carotid stenosis on DAPT initially admitted to hospitalist service due to acute encephalopathy thought to be secondary to breakthrough partial seizure from [facility]. Had been discharged to geriatric psychiatry now being admitted back to med surg due to early aspiration pneumonia Overnight episode of unresponsiveness--negative sepsis work up, ammonia normal, It appeared he had seizure Acute metabolic encephalopathy d/t aspiration--resolved -eeg 12/20, no seizure -alert and oriented x 3 -according to he has been declining since beginning of the year C dif--continue PO Vanco started 01/04. 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 If persistently high add hydralazine carotid stenosis-continue aspirin/Plavix chronic constipation -bowel regimen urinary retention, chronic, did [facility] -failed multiple voiding trials, uro rec keeping adames in and outpatient voiding trial -continue flomax, proscar, bethanchol hematuria--resolved. DVT prophylaxis-heparin, no, compression device, out of bed and ambulate Full code need for inpt: encephalopathy as above, needs placement awaiting safe disposition Quality Stroke Does the patient have a stroke diagnosis?: No VTE Prior VTE?: No VTE Risk Level:: Medical - moderate - high VTE Device Contraindication: Treatment Not Indicated VTE Drug Contraindication: N/A - Med Ordered
[2024-01-07] MEDS: cefTRIAXone sodium 1 GM in 0.9 % Sodium Chloride 50 ML IV (09:54)
[2024-01-07 15:13] VITALS: BP 139/63; PULSE 55; RESP 16; TEMP 36.2; O2SAT 97
[2024-01-07 19:12] VITALS: BP 167/80; PULSE 54; RESP 16; TEMP 36.9; O2SAT 98
[2024-01-07] MEDS: Atorvastatin Calcium 20 MG TABLET PO (20:30)
[2024-01-07] MEDS: Tamsulosin HCL 0.4 MG CAPSULE 0.8 MG PO (20:30)
[2024-01-08] MEDS: vancomycin HCL 125 MG CAPSULE PO ×4 (01:25→19:09)
[2024-01-08 03:39] VITALS: BP 164/80; PULSE 56; RESP 16; TEMP 36.6; O2SAT 98
[2024-01-08] MEDS: Pantoprazole Sodium 20 MG TABLET.DR PO (06:00)
[2024-01-08 06:22] LABS: Hematocrit 34.2 % (42.0-52.0); Hemoglobin 11.7 g/dl (14.0-18.0); Mean Corpuscular HGB Conc 34.2 g/dl (31.0-36.0); Mean Corpuscular Hemoglobin 33.9 pg (27.0-33.0); Mean Corpuscular Volume 99.1 fL (80.0-98.0); Mean Platelet Volume 9.5 fL (9.4-12.4); Platelet Count 261 X10*3/uL (160-400); Red Blood Count 3.45 X10*6/uL (4.60-5.80); Red Cell Distribution Width 14.8 % (11.0-16.0); White Blood Count 5.3 X10*3/uL (4.8-10.8)
[2024-01-08 06:26] LABS: Anion Gap 10 (12-20); Blood Urea Nitrogen 14 mg/dL (9-16); Calcium 9.1 mg/dL (8.4-10.2); Carbon Dioxide 30 mmol/L (22-29); Chloride 100 mmol/L (96-108); Estimated Glomerular Filt Rate > 60; Glucose Random 95 mg/dL (60-115); Potassium 3.9 mmol/L (3.3-5.1); Sodium 136 mmol/L (135-145)
[2024-01-08] MEDS: Metoprolol Succinate ER 50 MG TAB.ER.24H PO (07:25)
[2024-01-08] MEDS: amLODIPine Besylate 10 MG TABLET PO (07:25)
[2024-01-08] MEDS: Aspirin 81 MG TAB.CHEW PO (07:25)
[2024-01-08] MEDS: Clopidogrel Bisulfate 75 MG TABLET PO (07:25)
[2024-01-08] MEDS: Heparin Sodium,Porcine 5,000 UNIT/ML VIAL 5000 UNIT SUBCUT ×2 (07:25→19:09)
[2024-01-08] MEDS: Bethanechol Chloride 25 MG TABLET PO ×3 (07:25→19:09)
[2024-01-08] MEDS: Finasteride 5 MG TABLET PO (07:25)
[2024-01-08] MEDS: Phenytoin Oral Susp 100 MG/4 ML ORAL.SUSP PO ×3 (07:25→19:08)
[2024-01-08] MEDS: 0.9 % Sodium Chloride Flush 3 ML SYRINGE IVFLUSH ×3 (07:26→19:09)
[2024-01-08 07:32] VITALS: BP 121/82; PULSE 52; RESP 16; TEMP 36.5; O2SAT 95
[2024-01-08] MEDS: cefTRIAXone sodium 1 GM in 0.9 % Sodium Chloride 50 ML IV (09:17)
--- NOTE | 2024-01-08 11:58 | HO.PM.IMPN ---
Subjective Subjective Date of Service: 01/08/24 Interval History: f/u on uti, c dif, encephalopathy Review of Systems no new c/o. diarrhae improving Physical Exam Vital Signs: Vital Signs: Last Vital Signs Temp 97.7 F 01/08/24 07:32 Pulse 52 01/08/24 07:32 Resp 16 01/08/24 07:32 BP 121/82 01/08/24 07:32 Pulse Ox 95 01/08/24 07:32 O2 Del Method Room Air 01/08/24 07:32 O2 Flow Rate 2 12/24/23 03:20 BMI result Body Mass Index 18.5 General: AO X 3, no acute distress Resp: CTA bilateral CVS: S1,S2,RRR GI: +BS, NT, no distention Skin: No rash Neuro: motor grossly intact Psych: appropriate affect Objective Data Active Medications Acetaminophen (Acetaminophen Supp 650 Mg Supp.Rect) 650 mg [place] Q4H PRN PRN Reason: fever, h/a, mild pain Last Admin: 12/19/23 14:52 Dose: 650 mg Documented By: RAUL Al Hydroxide/Mg Hydroxide (Magnesium Hydrox/Alum Hydrox 30 Ml Oral.Susp) 30 ml PO Q6H PRN PRN Reason: Heartburn/Nausea Amlodipine Besylate (Amlodipine Besylate 10 Mg Tablet) [address] [facility]; Protocol Last Admin: 01/08/24 07:25 Dose: 10 mg Documented By: DERRICK Aspirin (Aspirin 81 Mg Tab.Chew) [address] [facility] Last Admin: 01/08/24 07:25 Dose: 81 mg Documented By: DERRICK Atorvastatin Calcium (Atorvastatin Calcium 20 Mg Tablet) [address] [facility] Last Admin: 01/07/24 20:30 Dose: 20 mg Documented By: LIGIA Bethanechol Chloride (Bethanechol Chloride 25 Mg Tablet) [address] [facility] Last Admin: 01/08/24 07:25 Dose: 25 mg Documented By: DERRICK Calcium Carbonate (Calcium Carbonate 750 Mg Tab.Chew) 750 mg PO Q4H PRN PRN Reason: Heartburn Clopidogrel Bisulfate (Clopidogrel Bisulfate 75 Mg Tablet) [address] [facility] Last Admin: 01/08/24 07:25 Dose: 75 mg Documented By: DERRICK Finasteride (Finasteride 5 Mg Tablet) [address] [facility] Last Admin: 01/08/24 07:25 Dose: 5 mg Documented By: DERRICK Haloperidol (Haloperidol 1 Mg Tablet) 2 mg PO Q6H PRN PRN Reason: agitation Last Admin: 12/23/23 14:09 Dose: 2 mg Documented By: ANTONIO Heparin Sodium (Porcine) (Heparin Sodium,Porcine 5,000 Unit/Ml Vial) 5,[address] [facility] Last Admin: 01/08/24 07:25 Dose: 5,000 unit Documented By: DERRICK Ceftriaxone Sodium 1 gm/ (Sodium Chloride) 50 mls @ 100 mls/hr IV Q24H [facility] Last Infusion: 01/08/24 09:49 Dose: Infused Documented By: DERRICK Magnesium Hydroxide (Milk Of Magnesia 30 Ml Oral.Susp) 30 ml PO DAILY PRN PRN Reason: Constipation Melatonin (Melatonin 3 Mg Tablet) 6 mg PO BEDTIME PRN PRN Reason: Insomnia Last Admin: 01/06/24 20:42 Dose: 6 mg Documented By: XU Metoprolol Succinate (Metoprolol Succinate Er 50 Mg Tab.Er.24h) [address] [facility]; Protocol Last Admin: 01/08/24 07:25 Dose: 50 mg Documented By: DERRICK Pantoprazole Sodium (Pantoprazole Sodium 20 Mg Tablet.) 20 mg PO DAILY@0630 [facility] Last Admin: 01/08/24 06:00 Dose: 20 mg Documented By: LIGIA Phenytoin (Phenytoin Oral Susp 100 Mg/4 Ml Oral.Susp) [address] [facility] Last Admin: 01/08/24 07:25 Dose: 100 mg Documented By: DERRICK Sodium Chloride (0.9 % Sodium Chloride Flush 3 Ml Syringe) [address] [facility] Last Admin: 01/08/24 07:26 Dose: 3 ml Documented By: DERRICK Tamsulosin HCl (Tamsulosin Hcl 0.4 Mg Capsule) 0.[address] [facility] Last Admin: 01/07/24 20:30 Dose: 0.8 mg Documented By: LIGIA Vancomycin HCl (Vancomycin Hcl 125 Mg Capsule) [address] [facility] Last Admin: 01/08/24 07:26 Dose: 125 mg Documented By: HO.DABA Labs 01/08/24 06:00 01/08/24 06:00 Labs: Laboratory Results - last 24 hr 01/08/24 06:00 MCV 99.1 H MCH 33.9 H MCHC 34.2 RDW 14.8 Plt Count 261 MPV 9.5 Absolute Nucleated RBC 0.000 Nucleated RBC % (auto) 0.0 Anion Gap 10 L Estim Creat Clear Calc 54.0 Estimated GFR > 60 Random Glucose 95 Calcium 9.1 D Microbiology Microbiology Results: Microbiology 01/06/24 Unknown Urine Culture - Final Urine Catheterized - Adames Catheter Escherichia coli 01/05/24 22:46 Blood Culture - Preliminary Blood - Venous No growth after 48 hours. 01/05/24 22:46 Blood Culture - Preliminary Blood - Venous No growth after 48 hours. Assessment and Plan (1) Aspiration into respiratory tract: Status: Acute Assessment and Plan: 83/F mood disorder, seizure disorder, hypertension, mixed hyperlipidemia, carotid stenosis on DAPT initially admitted to hospitalist service due to acute encephalopathy thought to be secondary to breakthrough partial seizure from [facility]. Had been discharged to geriatric psychiatry now being admitted back to [facility] due to early aspiration pneumonia Acute metabolic encephalopathy d/t aspiration--resolved -eeg 12/20, no seizure -alert and oriented x 3 -according to he has been declining since beginning of the year Overnight episode of unresponsiveness--negative sepsis work up, ammonia normal, It appeared he had seizure. C dif-- diarrahae improving continue PO Vanco started 01/04. off IV Flagyl. UTI--no fever, normal WBC -Ceftriaxone 01/05, follow Cx: ecoli -senstive to ceftriaxone. 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 If persistently high add hydralazine carotid stenosis-continue aspirin/Plavix chronic constipation -bowel regimen urinary retention, chronic, did self-catheterization at [facility] -failed multiple voiding trials, uro rec keeping adames in and outpatient voiding trial -continue flomax, proscar, bethanchol hematuria--resolved. DVT prophylaxis-heparin, no, compression device, out of bed and ambulate Full code need for inpt: encephalopathy as above, needs placement awaiting safe disposition Quality Stroke Does the patient have a stroke diagnosis?: No VTE Prior VTE?: No VTE Risk Level:: Medical - moderate - high VTE Device Contraindication: Treatment Not Indicated VTE Drug Contraindication: N/A - Med Ordered
[2024-01-08 15:38] VITALS: BP 182/73; PULSE 58; RESP 16; TEMP 36.2; O2SAT 97
[2024-01-08 16:04] VITALS: BP 133/71; PULSE 53; RESP 15
[2024-01-08] MEDS: Atorvastatin Calcium 20 MG TABLET PO (19:08)
[2024-01-08] MEDS: Tamsulosin HCL 0.4 MG CAPSULE 0.8 MG PO (19:09)
[2024-01-08] MEDS: Melatonin 3 MG TABLET 6 MG PO (19:09)
[2024-01-08 19:32] VITALS: BP 134/72; PULSE 55; RESP 18; TEMP 36.4; O2SAT 93
[2024-01-09] MEDS: vancomycin HCL 125 MG CAPSULE PO ×4 (00:17→18:28)
[2024-01-09 03:51] VITALS: BP 139/71; PULSE 52; RESP 16; TEMP 36.2; O2SAT 95
[2024-01-09 06:06] LABS: Hematocrit 34.9 % (42.0-52.0); Mean Corpuscular HGB Conc 34.4 g/dl (31.0-36.0); Mean Corpuscular Volume 98.9 fL (80.0-98.0); Mean Platelet Volume 9.6 fL (9.4-12.4); Platelet Count 262 X10*3/uL (160-400); Red Blood Count 3.53 X10*6/uL (4.60-5.80); Red Cell Distribution Width 14.7 % (11.0-16.0); White Blood Count 4.8 X10*3/uL (4.8-10.8)
[2024-01-09] MEDS: Pantoprazole Sodium 20 MG TABLET.DR PO (06:15)
[2024-01-09 06:22] LABS: Anion Gap 10 (12-20); Blood Urea Nitrogen 19 mg/dL (9-16); Carbon Dioxide 28 mmol/L (22-29); Chloride 102 mmol/L (96-108); Creatinine Clr Calc Pharmacy 54.7; Estimated Glomerular Filt Rate > 60; Glucose Random 83 mg/dL (60-115); Sodium 136 mmol/L (135-145)
[2024-01-09 07:27] VITALS: BP 147/96; PULSE 63; RESP 16; TEMP 36.1; O2SAT 97
[2024-01-09] MEDS: Finasteride 5 MG TABLET PO (08:00)
[2024-01-09] MEDS: Bethanechol Chloride 25 MG TABLET PO ×3 (08:00→19:52)
[2024-01-09] MEDS: amLODIPine Besylate 10 MG TABLET PO (08:00)
[2024-01-09] MEDS: Metoprolol Succinate ER 50 MG TAB.ER.24H PO (08:00)
[2024-01-09] MEDS: Aspirin 81 MG TAB.CHEW PO (08:01)
[2024-01-09] MEDS: cefTRIAXone sodium 1 GM in 0.9 % Sodium Chloride 50 ML IV (08:01)
[2024-01-09] MEDS: 0.9 % Sodium Chloride Flush 3 ML SYRINGE IVFLUSH ×3 (08:01→19:52)
[2024-01-09] MEDS: Heparin Sodium,Porcine 5,000 UNIT/ML VIAL 5000 UNIT SUBCUT ×2 (08:01→19:51)
[2024-01-09] MEDS: Phenytoin Oral Susp 100 MG/4 ML ORAL.SUSP PO ×3 (08:01→19:52)
[2024-01-09] MEDS: Clopidogrel Bisulfate 75 MG TABLET PO (08:01)
--- NOTE | 2024-01-09 10:01 | MHC.CM.PN ---
Addendum entered by Alise Grossman 01/09/24 16:18: Patients has scheduled a tour of [facility]. It is scheduled for 01/14/24, 2:30pm Original Note: The Medical History Physicians Report has been faxed to [employer] @ [facility]. Minoo Owensantana is the customer contact sales associate for admissions, . [facility] Memory unit via [facility]. Patient is C-Diff + 01/04/24. Patient is receiving PO Vanco.
--- NOTE | 2024-01-09 13:20 | P.PNIM_ITS ---
Subjective Subjective Date of Service: 01/09/24 Interval History: f/u on uti, c dif, encephalopathy Review of Systems denies any new c/o diarrahe improving no fever or abd pain Physical Exam 2 Vital Signs: Vital Signs: Last Vital Signs Temp 96.9 F 01/09/24 07:27 Pulse 63 01/09/24 07:27 Resp 16 01/09/24 07:27 BP 147/96 H 01/09/24 07:27 Pulse Ox 97 01/09/24 07:27 O2 Del Method Room Air 01/09/24 07:27 O2 Flow Rate 2 12/24/23 03:20 BMI result Body Mass Index 18.5 General: AO X 3, no acute distress Resp: CTA bilateral CVS: S1,S2,RRR GI: +BS, NT, no distention Skin: No rash Neuro: motor grossly intact Psych: appropriate affect Objective Data Active Medications Acetaminophen (Acetaminophen Supp 650 Mg Supp.Rect) 650 mg AL Q4H PRN PRN Reason: fever, h/a, mild pain Last Admin: 12/19/23 14:52 Dose: 650 mg Documented By: RAUL Al Hydroxide/Mg Hydroxide (Magnesium Hydrox/Alum Hydrox 30 Ml Oral.Susp) 30 ml PO Q6H PRN PRN Reason: Heartburn/Nausea Amlodipine Besylate (Amlodipine Besylate 10 Mg Tablet) 10 mg PO DAILY [facility]; Protocol Last Admin: 01/09/24 08:00 Dose: 10 mg Documented By: DERRICK Aspirin (Aspirin 81 Mg Tab.Chew) 81 mg PO DAILY [facility] Last Admin: 01/09/24 08:01 Dose: 81 mg Documented By: DERRICK Atorvastatin Calcium (Atorvastatin Calcium 20 Mg Tablet) 20 mg PO BEDTIME [facility] Last Admin: 01/08/24 19:08 Dose: 20 mg Documented By: KATARZYNA Bethanechol Chloride (Bethanechol Chloride 25 Mg Tablet) 25 mg PO TID [facility] Last Admin: 01/09/24 08:00 Dose: 25 mg Documented By: DERRICK Calcium Carbonate (Calcium Carbonate 750 Mg Tab.Chew) 750 mg PO Q4H PRN PRN Reason: Heartburn Clopidogrel Bisulfate (Clopidogrel Bisulfate 75 Mg Tablet) 75 mg PO DAILY [facility] Last Admin: 01/09/24 08:01 Dose: 75 mg Documented By: DERRICK Finasteride (Finasteride 5 Mg Tablet) 5 mg PO DAILY [facility] Last Admin: 01/09/24 08:00 Dose: 5 mg Documented By: DERRICK Haloperidol (Haloperidol 1 Mg Tablet) 2 mg PO Q6H PRN PRN Reason: agitation Last Admin: 12/23/23 14:09 Dose: 2 mg Documented By: ANTONIO Heparin Sodium (Porcine) (Heparin Sodium,Porcine 5,000 Unit/Ml Vial) 5,000 unit SUBCUT Q12H [facility] Last Admin: 01/09/24 08:01 Dose: 5,000 unit Documented By: DERRICK Ceftriaxone Sodium 1 gm/ (Sodium Chloride) 50 mls @ 100 mls/hr IV Q24H [facility] Last Infusion: 01/09/24 08:38 Dose: Infused Documented By: DERRICK Magnesium Hydroxide (Milk Of Magnesia 30 Ml Oral.Susp) 30 ml PO DAILY PRN PRN Reason: Constipation Melatonin (Melatonin 3 Mg Tablet) 6 mg PO BEDTIME PRN PRN Reason: Insomnia Last Admin: 01/08/24 19:09 Dose: 6 mg Documented By: KATARZYNA Metoprolol Succinate (Metoprolol Succinate Er 50 Mg Tab.Er.24h) 50 mg PO DAILY [facility]; Protocol Last Admin: 01/09/24 08:00 Dose: 50 mg Documented By: DERRICK Pantoprazole Sodium (Pantoprazole Sodium 20 Mg Tablet.Dr) 20 mg PO DAILY@0630 [facility] Last Admin: 01/09/24 06:15 Dose: 20 mg Documented By: KATARZYNA Phenytoin (Phenytoin Oral Susp 100 Mg/4 Ml Oral.Susp) 100 mg PO TID [facility] Last Admin: 01/09/24 08:01 Dose: 100 mg Documented By: DERRICK Sodium Chloride (0.9 % Sodium Chloride Flush 3 Ml Syringe) 3 ml IVFLUSH QSHIFT [facility] Last Admin: 01/09/24 08:01 Dose: 3 ml Documented By: DERRICK Tamsulosin HCl (Tamsulosin Hcl 0.4 Mg Capsule) 0.8 mg PO BEDTIME [facility] Last Admin: 01/08/24 19:09 Dose: 0.8 mg Documented By: KATARZYNA Vancomycin HCl (Vancomycin Hcl 125 Mg Capsule) 125 mg PO Q6H [facility] Last Admin: 01/09/24 12:47 Dose: 125 mg Documented By: DERRICK Labs 01/09/24 05:39 01/09/24 05:39 Labs: Laboratory Results - last 24 hr 01/09/24 05:39 MCV 98.9 H MCH 34.0 H MCHC 34.4 RDW 14.7 Plt Count 262 MPV 9.6 Absolute Nucleated RBC 0.000 Nucleated RBC % (auto) 0.0 Anion Gap 10 L Estim Creat Clear Calc 54.7 Estimated GFR > 60 Random Glucose 83 Calcium 9.0 Assessment and Plan (1) Major neurocognitive disorder due to another medical condition with behavioral disturbance: Status: Acute Plan 83/F mood disorder, seizure disorder, hypertension, mixed hyperlipidemia, carotid stenosis on DAPT initially admitted to hospitalist service due to acute encephalopathy thought to be secondary to breakthrough partial seizure from [facility]. Had been discharged to geriatric psychiatry now being admitted back to [facility] due to early aspiration pneumonia Overnight episode of unresponsiveness--negative sepsis work up, ammonia normal, It appeared he had seizure Acute metabolic encephalopathy d/t aspiration--resolved -eeg 12/20, no seizure -alert and oriented x 3 -according to he has been declining since beginning of the year C dif--continue PO Vanco started 01/04. 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 If persistently high add hydralazine carotid stenosis-continue aspirin/Plavix chronic constipation -bowel regimen urinary retention, chronic, did self-catheterization [facility] -failed multiple voiding trials, uro rec keeping adames in and outpatient voiding trial -continue flomax, proscar, bethanchol hematuria--resolved. DVT prophylaxis-heparin, no, compression device, out of bed and ambulate Full code need for inpt: encephalopathy as above, needs placement awaiting safe disposition Quality Stroke Does the patient have a stroke diagnosis?: No VTE Prior VTE?: No VTE Risk Level:: Medical - moderate - high VTE Device Contraindication: Treatment Not Indicated VTE Drug Contraindication: N/A - Med Ordered
--- NOTE | 2024-01-09 14:35 | P.CDIM_ITS ---
PROVIDER RESPONSE TEXT: To clarify, the appropriate diagnosis supported by the clinical indicators: Clinically unable to determine (explain): unclear if catheter related since catheter was changed QUERY TEXT: PHYSICIAN'S DOCUMENTATION REQUEST Date of Query: 01/09/2024 11:54 AM EDT Patient Name: Artemio Gallego Admit Date: 12/18/2023 Dear Balbir Brush MD, A review of the medical record indicates additional documentation may be needed. Please review below and update the documentation accordingly. Clinical Indicators: Patient with indwelling adames catheter. Progress note 12/31/23 - Urinary retention, failed voiding trial, has adames again, at baseline at home used straight cath prn. Progress note 01/06/24 - Urinalysis has been obtained patient has indwelling urinary catheter and is r emarkable for UTI. Urine Catheterization micro - Escherichia coli on 01/05 UA 01/05/24 - Cloudy, + Nitrite, moderate Leukocyte, Urine WBC >50 H Urology recommends keeping adames in. Continue flomax, proscar, bethanchol Please clarify the relationship between these conditions, if any: Yes the UTI is related to / associated with / due to the Adames Catheter possible, suspected, probable, etc. No the UTI is not related to / associated with / due to the Adames Catheter Other (explain) Clinically unable to determine (explain) Thank you, Ileana Albright, CCS, CDIS Use of terms such as suspected, likely, concern for, or probable (associated with a specific diagnosi s that is being evaluated, monitored, or treated as if it exists) are acceptable and can be coded in the inpatient se tting, when documented at the time of discharge. Please use your independent medical judgment in providing your response. THIS QUERY IS PART OF THE PERMANENT MEDICAL RECORD
[2024-01-09 15:26] VITALS: BP 132/63; PULSE 53; RESP 18; TEMP 36.7; O2SAT 96
[2024-01-09 19:28] VITALS: BP 145/71; PULSE 56; RESP 18; TEMP 36.6; O2SAT 98
[2024-01-09] MEDS: Tamsulosin HCL 0.4 MG CAPSULE 0.8 MG PO (19:52)
[2024-01-09] MEDS: Atorvastatin Calcium 20 MG TABLET PO (19:52)
[2024-01-09] MEDS: Melatonin 3 MG TABLET 6 MG PO (19:52)
[2024-01-10] MEDS: vancomycin HCL 125 MG CAPSULE PO ×4 (00:19→19:31)
[2024-01-10 03:47] VITALS: BP 176/84; PULSE 55; RESP 18; TEMP 36.6; O2SAT 95
[2024-01-10] MEDS: Pantoprazole Sodium 20 MG TABLET.DR PO (06:15)
[2024-01-10 07:38] VITALS: BP 149/71; PULSE 58; RESP 18; TEMP 36.5; O2SAT 96
[2024-01-10] MEDS: cefTRIAXone sodium 1 GM in 0.9 % Sodium Chloride 50 ML IV (08:51)
[2024-01-10] MEDS: 0.9 % Sodium Chloride Flush 3 ML SYRINGE IVFLUSH ×3 (08:52→19:32)
[2024-01-10] MEDS: Heparin Sodium,Porcine 5,000 UNIT/ML VIAL 5000 UNIT SUBCUT ×2 (08:55→19:31)
[2024-01-10] MEDS: Phenytoin Oral Susp 100 MG/4 ML ORAL.SUSP PO ×3 (08:55→19:31)
[2024-01-10] MEDS: Metoprolol Succinate ER 25 MG TAB.ER.24H 75 MG PO (08:56)
[2024-01-10] MEDS: amLODIPine Besylate 10 MG TABLET PO (08:56)
[2024-01-10] MEDS: Aspirin 81 MG TAB.CHEW PO (08:57)
[2024-01-10] MEDS: Bethanechol Chloride 25 MG TABLET PO ×3 (08:57→19:31)
[2024-01-10] MEDS: Clopidogrel Bisulfate 75 MG TABLET PO (08:57)
[2024-01-10] MEDS: Finasteride 5 MG TABLET PO (08:57)
--- NOTE | 2024-01-10 14:15 | HO.PM.IMPN ---
Subjective Subjective Date of Service: 01/10/24 Interval History: f/u on uti, c dif, encephalopathy Review of Systems denies any new c/o has small skin lesion on scalp left side no fever or chills Physical Exam Vital Signs: Vital Signs: Last Vital Signs Temp 97.7 F 01/10/24 07:38 Pulse 58 01/10/24 07:38 Resp 18 01/10/24 07:38 BP 149/71 H 01/10/24 07:38 Pulse Ox 96 01/10/24 07:38 O2 Del Method Room Air 01/10/24 07:38 O2 Flow Rate 2 12/24/23 03:20 BMI result Body Mass Index 18.5 General: AO X 3, no acute distress Resp: CTA bilateral CVS: S1,S2,RRR GI: +BS, NT, no distention Skin: No rash Neuro: motor grossly intact Psych: appropriate affect Objective Data Active Medications Acetaminophen (Acetaminophen Supp 650 Mg Supp.Rect) 650 mg AR Q4H PRN PRN Reason: fever, h/a, mild pain Last Admin: 12/19/23 14:52 Dose: 650 mg Documented By: RAUL Al Hydroxide/Mg Hydroxide (Magnesium Hydrox/Alum Hydrox 30 Ml Oral.Susp) 30 ml PO Q6H PRN PRN Reason: Heartburn/Nausea Amlodipine Besylate (Amlodipine Besylate 10 Mg Tablet) 10 mg PO DAILY [facility]; Protocol Last Admin: 01/10/24 08:56 Dose: 10 mg Documented By: LIZABETH Aspirin (Aspirin 81 Mg Tab.Chew) 81 mg PO DAILY [facility] Last Admin: 01/10/24 08:57 Dose: 81 mg Documented By: LIZABETH Atorvastatin Calcium (Atorvastatin Calcium 20 Mg Tablet) 20 mg PO BEDTIME [facility] Last Admin: 01/09/24 19:52 Dose: 20 mg Documented By: KATARZYNA Bethanechol Chloride (Bethanechol Chloride 25 Mg Tablet) 25 mg PO TID [facility] Last Admin: 01/10/24 08:57 Dose: 25 mg Documented By: LIZABETH Calcium Carbonate (Calcium Carbonate 750 Mg Tab.Chew) 750 mg PO Q4H PRN PRN Reason: Heartburn Clopidogrel Bisulfate (Clopidogrel Bisulfate 75 Mg Tablet) 75 mg PO DAILY [facility] Last Admin: 01/10/24 08:57 Dose: 75 mg Documented By: LIZABETH Finasteride (Finasteride 5 Mg Tablet) 5 mg PO DAILY [facility] Last Admin: 01/10/24 08:57 Dose: 5 mg Documented By: LIZABETH Haloperidol (Haloperidol 1 Mg Tablet) 2 mg PO Q6H PRN PRN Reason: agitation Last Admin: 12/23/23 14:09 Dose: 2 mg Documented By: ANTONIO Heparin Sodium (Porcine) (Heparin Sodium,Porcine 5,000 Unit/Ml Vial) 5,000 unit SUBCUT Q12H [facility] Last Admin: 01/10/24 08:55 Dose: 5,000 unit Documented By: LIZABETH Ceftriaxone Sodium 1 gm/ (Sodium Chloride) 50 mls @ 100 mls/hr IV Q24H [facility] Last Infusion: 01/10/24 10:09 Dose: Infused Documented By: LIZABETH Magnesium Hydroxide (Milk Of Magnesia 30 Ml Oral.Susp) 30 ml PO DAILY PRN PRN Reason: Constipation Melatonin (Melatonin 3 Mg Tablet) 6 mg PO BEDTIME PRN PRN Reason: Insomnia Last Admin: 01/09/24 19:52 Dose: 6 mg Documented By: KATARZYNA Metoprolol Succinate (Metoprolol Succinate Er 25 Mg Tab.Er.24h) 75 mg PO DAILY [facility]; Protocol Last Admin: 01/10/24 08:56 Dose: 75 mg Documented By: LIZABETH Pantoprazole Sodium (Pantoprazole Sodium 20 Mg Tablet.Dr) 20 mg PO DAILY@0630 [facility] Last Admin: 01/10/24 06:15 Dose: 20 mg Documented By: KATARZYNA Phenytoin (Phenytoin Oral Susp 100 Mg/4 Ml Oral.Susp) 100 mg PO TID [facility] Last Admin: 01/10/24 08:55 Dose: 100 mg Documented By: LIZABETH Sodium Chloride (0.9 % Sodium Chloride Flush 3 Ml Syringe) 3 ml IVFLUSH QSHIFT [facility] Last Admin: 01/10/24 08:52 Dose: 3 ml Documented By: LIZABETH Tamsulosin HCl (Tamsulosin Hcl 0.4 Mg Capsule) 0.8 mg PO BEDTIME [facility] Last Admin: 01/09/24 19:52 Dose: 0.8 mg Documented By: KATARZYNA Vancomycin HCl (Vancomycin Hcl 125 Mg Capsule) 125 mg PO Q6H [facility] Last Admin: 01/10/24 12:48 Dose: 125 mg Documented By: LIZABETH Labs 01/09/24 05:39 01/09/24 05:39 Assessment and Plan (1) Major neurocognitive disorder due to another medical condition with behavioral disturbance: Status: Acute Plan 83/F mood disorder, seizure disorder, hypertension, mixed hyperlipidemia, carotid stenosis on DAPT initially admitted to hospitalist service due to acute encephalopathy thought to be secondary to breakthrough partial seizure from [facility]. Had been discharged to geriatric psychiatry now being admitted back to [facility] due to early aspiration pneumonia Overnight episode of unresponsiveness--negative sepsis work up, ammonia normal, It appeared he had seizure Acute metabolic encephalopathy d/t aspiration--resolved -eeg 12/20, no seizure -alert and oriented x 3 -according to he has been declining since beginning of the year C dif--continue PO Vanco started 01/04. 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 If persistently high add hydralazine carotid stenosis-continue aspirin/Plavix chronic constipation -bowel regimen urinary retention, chronic, did self-catheterization at [facility] -failed multiple voiding trials, uro rec keeping adames in and outpatient voiding trial -continue flomax, proscar, bethanchol hematuria--resolved. left side scalp lesion -no erythema or discharge consider outpatient. DVT prophylaxis-heparin, no, compression device, out of bed and ambulate Full code need for inpt: encephalopathy as above, needs placement awaiting safe disposition Quality Stroke Does the patient have a stroke diagnosis?: No VTE Prior VTE?: No VTE Risk Level:: Medical - moderate - high VTE Device Contraindication: Treatment Not Indicated VTE Drug Contraindication: N/A - Med Ordered
[2024-01-10 15:41] VITALS: BP 151/70; PULSE 56; RESP 18; TEMP 36.3; O2SAT 98
[2024-01-10 19:10] VITALS: BP 118/66; PULSE 56; RESP 18; TEMP 36.8; O2SAT 93
[2024-01-10] MEDS: Atorvastatin Calcium 20 MG TABLET PO (19:31)
[2024-01-10] MEDS: Melatonin 3 MG TABLET 6 MG PO (19:31)
[2024-01-10] MEDS: Tamsulosin HCL 0.4 MG CAPSULE 0.8 MG PO (19:31)
[2024-01-11] MEDS: vancomycin HCL 125 MG CAPSULE PO ×4 (00:17→20:05)
[2024-01-11 03:05] VITALS: BP 144/70; PULSE 52; RESP 16; TEMP 36.3; O2SAT 95
[2024-01-11] MEDS: Pantoprazole Sodium 20 MG TABLET.DR PO (06:16)
[2024-01-11 07:28] VITALS: BP 176/88; PULSE 54; RESP 18; TEMP 36.8; O2SAT 98
--- NOTE | 2024-01-11 07:34 | P.PNIM_ITS ---
Subjective Subjective Date of Service: 01/11/24 Interval History: follow up Review of Systems seems similar Physical Exam 2 Vital Signs: Vital Signs: Last Vital Signs Temp 97.3 F 01/11/24 03:05 Pulse 52 01/11/24 03:05 Resp 16 01/11/24 03:05 BP 144/70 H 01/11/24 03:05 Pulse Ox 95 01/11/24 03:05 O2 Del Method Room Air 01/11/24 03:05 O2 Flow Rate 2 12/24/23 03:20 BMI result Body Mass Index 18.5 General: AO X 3, no acute distress Resp: CTA bilateral CVS: S1,S2,RRR GI: +BS, NT, no distention Skin: No rash Neuro: motor grossly intact Psych: appropriate affect Objective Data Active Medications Acetaminophen (Acetaminophen Supp 650 Mg Supp.Rect) 650 mg SD Q4H PRN PRN Reason: fever, h/a, mild pain Last Admin: 12/19/23 14:52 Dose: 650 mg Documented By: RAUL Al Hydroxide/Mg Hydroxide (Magnesium Hydrox/Alum Hydrox 30 Ml Oral.Susp) 30 ml PO Q6H PRN PRN Reason: Heartburn/Nausea Amlodipine Besylate (Amlodipine Besylate 10 Mg Tablet) 10 mg PO DAILY [facility]; Protocol Last Admin: 01/10/24 08:56 Dose: 10 mg Documented By: LIZABETH Aspirin (Aspirin 81 Mg Tab.Chew) 81 mg PO DAILY [facility] Last Admin: 01/10/24 08:57 Dose: 81 mg Documented By: LIZABETH Atorvastatin Calcium (Atorvastatin Calcium 20 Mg Tablet) 20 mg PO BEDTIME [facility] Last Admin: 01/10/24 19:31 Dose: 20 mg Documented By: KATARZYNA Bethanechol Chloride (Bethanechol Chloride 25 Mg Tablet) 25 mg PO TID [facility] Last Admin: 01/10/24 19:31 Dose: 25 mg Documented By: KATARZYNA Calcium Carbonate (Calcium Carbonate 750 Mg Tab.Chew) 750 mg PO Q4H PRN PRN Reason: Heartburn Clopidogrel Bisulfate (Clopidogrel Bisulfate 75 Mg Tablet) 75 mg PO DAILY [facility] Last Admin: 01/10/24 08:57 Dose: 75 mg Documented By: LIZABETH Finasteride (Finasteride 5 Mg Tablet) 5 mg PO DAILY [facility] Last Admin: 01/10/24 08:57 Dose: 5 mg Documented By: LIZABETH Haloperidol (Haloperidol 1 Mg Tablet) 2 mg PO Q6H PRN PRN Reason: agitation Last Admin: 12/23/23 14:09 Dose: 2 mg Documented By: ANTONIO Heparin Sodium (Porcine) (Heparin Sodium,Porcine 5,000 Unit/Ml Vial) 5,000 unit SUBCUT Q12H [facility] Last Admin: 01/10/24 19:31 Dose: 5,000 unit Documented By: KATARZYNA Ceftriaxone Sodium 1 gm/ (Sodium Chloride) 50 mls @ 100 mls/hr IV Q24H [facility] Last Infusion: 01/10/24 10:09 Dose: Infused Documented By: LIZABETH Magnesium Hydroxide (Milk Of Magnesia 30 Ml Oral.Susp) 30 ml PO DAILY PRN PRN Reason: Constipation Melatonin (Melatonin 3 Mg Tablet) 6 mg PO BEDTIME PRN PRN Reason: Insomnia Last Admin: 01/10/24 19:31 Dose: 6 mg Documented By: KATARZYNA Metoprolol Succinate (Metoprolol Succinate Er 25 Mg Tab.Er.24h) 75 mg PO DAILY [facility]; Protocol Last Admin: 01/10/24 08:56 Dose: 75 mg Documented By: LIZABETH Pantoprazole Sodium (Pantoprazole Sodium 20 Mg Tablet.Dr) 20 mg PO DAILY@0630 [facility] Last Admin: 01/11/24 06:16 Dose: 20 mg Documented By: KATARZYNA Phenytoin (Phenytoin Oral Susp 100 Mg/4 Ml Oral.Susp) 100 mg PO TID [facility] Last Admin: 01/10/24 19:31 Dose: 100 mg Documented By: KATARZYNA Sodium Chloride (0.9 % Sodium Chloride Flush 3 Ml Syringe) 3 ml IVFLUSH QSHIFT [facility] Last Admin: 01/10/24 19:32 Dose: 3 ml Documented By: KATARZYNA Tamsulosin HCl (Tamsulosin Hcl 0.4 Mg Capsule) 0.8 mg PO BEDTIME [facility] Last Admin: 01/10/24 19:31 Dose: 0.8 mg Documented By: KATARZYNA Vancomycin HCl (Vancomycin Hcl 125 Mg Capsule) 125 mg PO Q6H [facility] Last Admin: 01/11/24 06:17 Dose: 125 mg Documented By: KATARZYNA Labs 01/09/24 05:39 01/09/24 05:39 Microbiology Microbiology Results: Microbiology 01/05/24 22:46 Blood Culture - Final Blood - Venous No growth after 5 days. 01/05/24 22:46 Blood Culture - Final Blood - Venous No growth after 5 days. Assessment and Plan (1) Major neurocognitive disorder due to another medical condition with behavioral disturbance: Status: Acute Plan 83/F mood disorder, seizure disorder, hypertension, mixed hyperlipidemia, carotid stenosis on DAPT initially admitted to hospitalist service due to acute encephalopathy thought to be secondary to breakthrough partial seizure from [facility]. Had been discharged to geriatric psychiatry now being admitted back to [facility] due to early aspiration pneumonia Overnight episode of unresponsiveness--negative sepsis work up, ammonia normal, It appeared he had seizure Acute metabolic encephalopathy d/t aspiration--resolved -eeg 12/20, no seizure -alert and oriented x 3 -according to he has been declining since beginning of the year C dif--continue PO Vanco started 01/04. Stop IV Flagyl UTI-no fever, normal WBC -Ceftriaxone 01/05, follow Cx unspecified dementia with behavioral disturbance -Haldol per Psych recommendation, hasn't received a dose since 12/22 -psychiatry following -lacks capacity to make decision -HCP invoked () Aspiration pneumonia--has completed treatment with Zosyn and Augmentin [employer] PRESS MANAGER: NDD3, thin liquid Partial seizure disorder -continue Dilantin -Avoid keppra d/t agitation, depakote caused high ammonia HTN--BP variable, but mostly up, -continue norvasc, Metoprolol. If persistently high add hydralazine carotid stenosis-continue aspirin/Plavix chronic constipation -bowel regimen urinary retention, chronic, did self-catheterization at [facility] -failed multiple voiding trials, uro rec keeping adames in and outpatient voiding trial -continue flomax, proscar, bethanchol hematuria--resolved. left side scalp lesion -no erythema or discharge consider outpatient management . DVT prophylaxis-heparin, no, compression device, out of bed and ambulate Full code need for inpt: encephalopathy as above, needs placement awaiting safe disposition Quality Stroke Does the patient have a stroke diagnosis?: No VTE Prior VTE?: No VTE Risk Level:: Medical - moderate - high VTE Device Contraindication: Treatment Not Indicated VTE Drug Contraindication: N/A - Med Ordered
[2024-01-11] MEDS: Heparin Sodium,Porcine 5,000 UNIT/ML VIAL 5000 UNIT SUBCUT ×2 (07:49→20:05)
[2024-01-11] MEDS: Phenytoin Oral Susp 100 MG/4 ML ORAL.SUSP PO ×3 (07:49→20:05)
[2024-01-11] MEDS: Clopidogrel Bisulfate 75 MG TABLET PO (07:51)
[2024-01-11] MEDS: Aspirin 81 MG TAB.CHEW PO (07:51)
[2024-01-11] MEDS: Metoprolol Succinate ER 25 MG TAB.ER.24H 75 MG PO (07:52)
[2024-01-11] MEDS: Bethanechol Chloride 25 MG TABLET PO ×3 (07:52→20:05)
[2024-01-11] MEDS: amLODIPine Besylate 10 MG TABLET PO (07:52)
[2024-01-11] MEDS: Finasteride 5 MG TABLET PO (08:04)
[2024-01-11] MEDS: cefTRIAXone sodium 1 GM in 0.9 % Sodium Chloride 50 ML IV (09:09)
[2024-01-11] MEDS: 0.9 % Sodium Chloride Flush 3 ML SYRINGE IVFLUSH ×3 (09:09→20:05)
--- NOTE | 2024-01-11 10:30 | MHC.CLN ---
F/U DIET=REGULAR WITH THIN LIQUIDS. ENSURE BID TO PROMOTE NUTRITIONAL INTAKE. SUPPLEMENT PROVIDES 700 KCALS, 40 G PROTEIN. USUAL INTAKE MOST MEALS 100%. REDDENED COCCYX. FOLLOW FOR PLAN OF CARE AND INTAKE. RD TO FOLLOW WEEKLY.
--- NOTE | 2024-01-11 13:24 | MHC.CM.PN ---
EMR REVIEWED AND PER MD ROUNDS, PT REMAINS MEDICALLY CLEARED FOR DC. YANNICK IS WORKING WITH 2 [facility] FACIL[facility]IES WITH MEMORY CARE UNITS 1.) [facility] [place] [facility] SCHEDULED FOR 01/13 2.) [facility] - YANNICK WORKING WITH MCKENNA Mondragon (MANAGED CARE ANALYST) PER , MCKENNA WILL NEED A RELEASE FORM SIGNED FOR MEDICAL RECORDS? CM LEFT MESSAGE FOR MCKENNA TO RETURN CALL ([phone]) CM WILL CONTINUE TO FOLLOW FOR ANY CHANGE TO DC PLAN, NO SNF BED OFFERS AT THIS TIME.
[2024-01-11 13:34] VITALS: BP 140/72; PULSE 53; RESP 18; TEMP 36.5; O2SAT 97
[2024-01-11 15:23] VITALS: BP 141/79; PULSE 59; RESP 18; TEMP 36.6; O2SAT 95
[2024-01-11 19:03] VITALS: BP 147/79; PULSE 59; RESP 18; TEMP 36.7; O2SAT 96
[2024-01-11] MEDS: Melatonin 3 MG TABLET 6 MG PO (20:05)
[2024-01-11] MEDS: Atorvastatin Calcium 20 MG TABLET PO (20:05)
[2024-01-11] MEDS: Tamsulosin HCL 0.4 MG CAPSULE 0.8 MG PO (20:05)
[2024-01-12] VITALS (8 sets, daily range): BP systolic 111–170; BP diastolic 65–91; PULSE 51–69; RESP 16–18; TEMP 36.1–36.7; O2SAT 95–97
[2024-01-12] MEDS: vancomycin HCL 125 MG CAPSULE PO ×4 (01:25→18:14)
[2024-01-12] MEDS: Pantoprazole Sodium 20 MG TABLET.DR PO (06:19)
[2024-01-12] MEDS: Phenytoin Oral Susp 100 MG/4 ML ORAL.SUSP PO ×3 (08:30→20:09)
[2024-01-12] MEDS: Aspirin 81 MG TAB.CHEW PO (08:30)
[2024-01-12] MEDS: amLODIPine Besylate 10 MG TABLET PO (08:30)
[2024-01-12] MEDS: Bethanechol Chloride 25 MG TABLET PO ×3 (08:31→20:10)
[2024-01-12] MEDS: 0.9 % Sodium Chloride Flush 3 ML SYRINGE IVFLUSH ×3 (08:31→20:21)
[2024-01-12] MEDS: Clopidogrel Bisulfate 75 MG TABLET PO (08:31)
[2024-01-12] MEDS: Heparin Sodium,Porcine 5,000 UNIT/ML VIAL 5000 UNIT SUBCUT ×2 (08:31→20:09)
[2024-01-12] MEDS: Finasteride 5 MG TABLET PO (08:31)
[2024-01-12] MEDS: Metoprolol Succinate ER 25 MG TAB.ER.24H 75 MG PO (08:31)
--- NOTE | 2024-01-12 08:38 | HO.PM.IMPN ---
Subjective Subjective Date of Service: 01/12/24 Interval History: follow up Review of Systems no new symptoms Physical Exam Vital Signs: Vital Signs: Last Vital Signs Temp 97.0 F 01/12/24 07:36 Pulse 69 01/12/24 08:31 Resp 16 01/12/24 07:36 BP 170/91 H 01/12/24 07:36 Pulse Ox 95 01/12/24 07:36 O2 Del Method Room Air 01/12/24 07:36 O2 Flow Rate 2 12/24/23 03:20 BMI result Body Mass Index 18.5 General: AO X 3, no acute distress Resp: CTA bilateral CVS: S1,S2,RRR GI: +BS, NT, no distention Skin: No rash Neuro: motor grossly intact Psych: appropriate affect Objective Data Active Medications Acetaminophen (Acetaminophen Supp 650 Mg Supp.Rect) 650 mg [place] Q4H PRN PRN Reason: fever, h/a, mild pain Last Admin: 12/19/23 14:52 Dose: 650 mg Documented By: RAUL Al Hydroxide/Mg Hydroxide (Magnesium Hydrox/Alum Hydrox 30 Ml Oral.Susp) 30 ml PO Q6H PRN PRN Reason: Heartburn/Nausea Amlodipine Besylate (Amlodipine Besylate 10 Mg Tablet) 10 mg PO DAILY [facility]; Protocol Last Admin: 01/12/24 08:30 Dose: 10 mg Documented By: SAMANTHA Aspirin (Aspirin 81 Mg Tab.Chew) 81 mg PO DAILY [facility] Last Admin: 01/12/24 08:30 Dose: 81 mg Documented By: SAMANTHA Atorvastatin Calcium (Atorvastatin Calcium 20 Mg Tablet) 20 mg PO BEDTIME [facility] Last Admin: 01/11/24 20:05 Dose: 20 mg Documented By: FERMIN Bethanechol Chloride (Bethanechol Chloride 25 Mg Tablet) 25 mg PO TID [facility] Last Admin: 01/12/24 08:31 Dose: 25 mg Documented By: SAMANTHA Calcium Carbonate (Calcium Carbonate 750 Mg Tab.Chew) 750 mg PO Q4H PRN PRN Reason: Heartburn Clopidogrel Bisulfate (Clopidogrel Bisulfate 75 Mg Tablet) 75 mg PO DAILY [facility] Last Admin: 01/12/24 08:31 Dose: 75 mg Documented By: SAMANTHA Finasteride (Finasteride 5 Mg Tablet) 5 mg PO DAILY [facility] Last Admin: 01/12/24 08:31 Dose: 5 mg Documented By: SAMANTHA Haloperidol (Haloperidol 1 Mg Tablet) 2 mg PO Q6H PRN PRN Reason: agitation Last Admin: 12/23/23 14:09 Dose: 2 mg Documented By: ANTONIO Heparin Sodium (Porcine) (Heparin Sodium,Porcine 5,000 Unit/Ml Vial) 5,000 unit SUBCUT Q12H [facility] Last Admin: 01/12/24 08:31 Dose: 5,000 unit Documented By: SAMANTHA Ceftriaxone Sodium 1 gm/ (Sodium Chloride) 50 mls @ 100 mls/hr IV Q24H [facility] Last Infusion: 01/11/24 09:59 Dose: Infused Documented By: LIZABETH Magnesium Hydroxide (Milk Of Magnesia 30 Ml Oral.Susp) 30 ml PO DAILY PRN PRN Reason: Constipation Melatonin (Melatonin 3 Mg Tablet) 6 mg PO BEDTIME PRN PRN Reason: Insomnia Last Admin: 01/11/24 20:05 Dose: 6 mg Documented By: FERMIN Metoprolol Succinate (Metoprolol Succinate Er 25 Mg Tab.Er.24h) 75 mg PO DAILY [facility]; Protocol Last Admin: 01/12/24 08:31 Dose: 75 mg Documented By: SAMANTHA Pantoprazole Sodium (Pantoprazole Sodium 20 Mg Tablet.Dr) 20 mg PO DAILY@0630 [facility] Last Admin: 01/12/24 06:19 Dose: 20 mg Documented By: FERMIN Phenytoin (Phenytoin Oral Susp 100 Mg/4 Ml Oral.Susp) 100 mg PO TID [facility] Last Admin: 01/12/24 08:30 Dose: 100 mg Documented By: SAMANTHA Sodium Chloride (0.9 % Sodium Chloride Flush 3 Ml Syringe) 3 ml IVFLUSH QSHIFT [facility] Last Admin: 01/12/24 08:31 Dose: 3 ml Documented By: SAMANTHA Tamsulosin HCl (Tamsulosin Hcl 0.4 Mg Capsule) 0.8 mg PO BEDTIME [facility] Last Admin: 01/11/24 20:05 Dose: 0.8 mg Documented By: FERMIN Vancomycin HCl (Vancomycin Hcl 125 Mg Capsule) 125 mg PO Q6H [facility] Last Admin: 01/12/24 06:19 Dose: 125 mg Documented By: FERMIN Labs 01/09/24 05:39 01/09/24 05:39 Assessment and Plan (1) Major neurocognitive disorder due to another medical condition with behavioral disturbance: Status: Acute Plan 83/F mood disorder, seizure disorder, hypertension, mixed hyperlipidemia, carotid stenosis on DAPT initially admitted to hospitalist service due to acute encephalopathy thought to be secondary to breakthrough partial seizure from [facility]. Had been discharged to geriatric psychiatry now being admitted back to [facility] due to early aspiration pneumonia Overnight episode of unresponsiveness--negative sepsis work up, ammonia normal, It appeared he had seizure Acute metabolic encephalopathy d/t aspiration--resolved -eeg 12/20, no seizure -alert and oriented x 3 -according to he has been declining since beginning of the year C dif--continue PO Vanco started 01/04. 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 If persistently high add hydralazine carotid stenosis-continue aspirin/Plavix chronic constipation -bowel regimen urinary retention, chronic, did [facility]ization at [facility] -failed multiple voiding trials, uro rec keeping adames in and outpatient voiding trial -continue flomax, proscar, bethanchol hematuria--resolved. left side scalp lesion -no erythema or discharge consider outpatient management . DVT prophylaxis-heparin, no, compression device, out of bed and ambulate Full code need for inpt: encephalopathy as above, needs placement awaiting safe disposition Quality Stroke Does the patient have a stroke diagnosis?: No VTE Prior VTE?: No VTE Risk Level:: Medical - moderate - high VTE Device Contraindication: Treatment Not Indicated VTE Drug Contraindication: N/A - Med Ordered
[2024-01-12] MEDS: cefTRIAXone sodium 1 GM in 0.9 % Sodium Chloride 50 ML IV (09:08)
[2024-01-12] MEDS: Metoprolol Succinate ER 25 MG TAB.ER.24H PO (09:09)
[2024-01-12] MEDS: Melatonin 3 MG TABLET 6 MG PO (20:09)
[2024-01-12] MEDS: Tamsulosin HCL 0.4 MG CAPSULE 0.8 MG PO (20:10)
[2024-01-12] MEDS: Atorvastatin Calcium 20 MG TABLET PO (20:10)
[2024-01-13] MEDS: vancomycin HCL 125 MG CAPSULE PO ×4 (01:16→18:03)
[2024-01-13 03:25] VITALS: BP 156/67; PULSE 63; RESP 18; TEMP 36.2; O2SAT 98
[2024-01-13] MEDS: Pantoprazole Sodium 20 MG TABLET.DR PO (06:23)
[2024-01-13 07:12] VITALS: BP 179/86; PULSE 56; RESP 20; TEMP 36.1; O2SAT 96
[2024-01-13] MEDS: Clopidogrel Bisulfate 75 MG TABLET PO (07:44)
[2024-01-13] MEDS: Phenytoin Oral Susp 100 MG/4 ML ORAL.SUSP PO ×3 (07:44→20:44)
[2024-01-13] MEDS: amLODIPine Besylate 10 MG TABLET PO (07:44)
[2024-01-13] MEDS: Finasteride 5 MG TABLET PO (07:44)
[2024-01-13] MEDS: Bethanechol Chloride 25 MG TABLET PO ×3 (07:45→20:44)
[2024-01-13] MEDS: Metoprolol Succinate ER 100 MG TAB.ER.24H PO (07:45)
[2024-01-13] MEDS: 0.9 % Sodium Chloride Flush 3 ML SYRINGE IVFLUSH ×3 (07:45→20:45)
[2024-01-13] MEDS: Aspirin 81 MG TAB.CHEW PO (07:45)
[2024-01-13] MEDS: cefTRIAXone sodium 1 GM in 0.9 % Sodium Chloride 50 ML IV (08:50)
--- NOTE | 2024-01-13 11:53 | P.PNIM_ITS ---
Subjective Subjective Date of Service: 01/13/24 Interval History: cdiff Review of Systems diarrhae improving denies nay urinary c/o. Physical Exam 2 Vital Signs: Vital Signs: Last Vital Signs Temp 97.0 F 01/13/24 07:12 Pulse 56 01/13/24 07:12 Resp 20 01/13/24 07:12 BP 179/86 H 01/13/24 07:12 Pulse Ox 96 01/13/24 07:12 O2 Del Method Room Air 01/13/24 07:12 O2 Flow Rate 2 12/24/23 03:20 BMI result Body Mass Index 18.5 General: AO X 3, no acute distress Resp: CTA bilateral CVS: S1,S2,RRR GI: +BS, NT, no distention Skin: No rash Neuro: motor grossly intact Psych: appropriate affect . Objective Data Active Medications Acetaminophen (Acetaminophen Supp 650 Mg Supp.Rect) 650 mg [place] Q4H PRN PRN Reason: fever, h/a, mild pain Last Admin: 12/19/23 14:52 Dose: 650 mg Documented By: RAUL Al Hydroxide/Mg Hydroxide (Magnesium Hydrox/Alum Hydrox 30 Ml Oral.Susp) 30 ml PO Q6H PRN PRN Reason: Heartburn/Nausea Amlodipine Besylate (Amlodipine Besylate 10 Mg Tablet) 10 mg PO DAILY [facility]; Protocol Last Admin: 01/13/24 07:44 Dose: 10 mg Documented By: SAMANTHA Aspirin (Aspirin 81 Mg Tab.Chew) 81 mg PO DAILY [facility] Last Admin: 01/13/24 07:45 Dose: 81 mg Documented By: SAMANTHA Atorvastatin Calcium (Atorvastatin Calcium 20 Mg Tablet) 20 mg PO BEDTIME [facility] Last Admin: 01/12/24 20:10 Dose: 20 mg Documented By: FERMIN Bethanechol Chloride (Bethanechol Chloride 25 Mg Tablet) 25 mg PO TID [facility] Last Admin: 01/13/24 07:45 Dose: 25 mg Documented By: SAMANTHA Calcium Carbonate (Calcium Carbonate 750 Mg Tab.Chew) 750 mg PO Q4H PRN PRN Reason: Heartburn Clopidogrel Bisulfate (Clopidogrel Bisulfate 75 Mg Tablet) 75 mg PO DAILY [facility] Last Admin: 01/13/24 07:44 Dose: 75 mg Documented By: SAMANTHA Finasteride (Finasteride 5 Mg Tablet) 5 mg PO DAILY [facility] Last Admin: 01/13/24 07:44 Dose: 5 mg Documented By: SAMANTHA Haloperidol (Haloperidol 1 Mg Tablet) 2 mg PO Q6H PRN PRN Reason: agitation Last Admin: 12/23/23 14:09 Dose: 2 mg Documented By: ANTONIO Heparin Sodium (Porcine) (Heparin Sodium,Porcine 5,000 Unit/Ml Vial) 5,000 unit SUBCUT Q12H [facility] Last Admin: 01/13/24 07:46 Dose: Not Given Documented By: SAMANTHA Non-Admin Reason: Patient Refused Magnesium Hydroxide (Milk Of Magnesia 30 Ml Oral.Susp) 30 ml PO DAILY PRN PRN Reason: Constipation Melatonin (Melatonin 3 Mg Tablet) 6 mg PO BEDTIME PRN PRN Reason: Insomnia Last Admin: 01/12/24 20:09 Dose: 6 mg Documented By: FERMIN Metoprolol Succinate (Metoprolol Succinate Er 100 Mg Tab.Er.24h) 100 mg PO DAILY [facility]; Protocol Last Admin: 01/13/24 07:45 Dose: 100 mg Documented By: SAMANTHA Pantoprazole Sodium (Pantoprazole Sodium 20 Mg Tablet.Dr) 20 mg PO DAILY@0630 [facility] Last Admin: 01/13/24 06:23 Dose: 20 mg Documented By: ANTOIC Phenytoin (Phenytoin Oral Susp 100 Mg/4 Ml Oral.Susp) 100 mg PO TID [facility] Last Admin: 01/13/24 07:44 Dose: 100 mg Documented By: SAMANTHA Sodium Chloride (0.9 % Sodium Chloride Flush 3 Ml Syringe) 3 ml IVFLUSH QSHIFT [facility] Last Admin: 01/13/24 07:45 Dose: 3 ml Documented By: SAMANTHA Tamsulosin HCl (Tamsulosin Hcl 0.4 Mg Capsule) 0.8 mg PO BEDTIME [facility] Last Admin: 01/12/24 20:10 Dose: 0.8 mg Documented By: FERMIN Vancomycin HCl (Vancomycin Hcl 125 Mg Capsule) 125 mg PO Q6H [facility] Last Admin: 01/13/24 07:45 Dose: 125 mg Documented By: SAMANTHA Labs 01/09/24 05:39 01/09/24 05:39 Assessment and Plan (1) Major neurocognitive disorder due to another medical condition with behavioral disturbance: Status: Acute Plan 83/F mood disorder, seizure disorder, hypertension, mixed hyperlipidemia, carotid stenosis on DAPT initially admitted to hospitalist service due to acute encephalopathy thought to be secondary to breakthrough partial seizure from [facility]. Had been discharged to geriatric psychiatry now being admitted back to [facility] due to early aspiration pneumonia Overnight episode of unresponsiveness--negative sepsis work up, ammonia normal, It appeared he had seizure Acute metabolic encephalopathy d/t aspiration--resolved -eeg 12/20, no seizure -alert and oriented x 3 -according to he has been declining since beginning of the year C dif--continue PO Vanco started 01/04. Stop IV Flagyl UTI-no fever, normal WBC urine culture e coli senstive to ceftriaxone . completed antibiotics. 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 If persistently high add hydralazine carotid stenosis-continue aspirin/Plavix chronic constipation -bowel regimen urinary retention, chronic, did self-catheterization at [facility] -failed multiple voiding trials, uro rec keeping adames in and outpatient voiding trial -continue flomax, proscar, bethanchol hematuria--resolved. left side scalp lesion -no erythema or discharge consider outpatient management . DVT prophylaxis-heparin, no, compression device, out of bed and ambulate Full code need for inpt: encephalopathy as above, needs placement awaiting safe disposition Quality Stroke Does the patient have a stroke diagnosis?: No VTE Prior VTE?: No VTE Risk Level:: Medical - moderate - high VTE Device Contraindication: Treatment Not Indicated VTE Drug Contraindication: N/A - Med Ordered
[2024-01-13 15:18] VITALS: BP 136/63; PULSE 57; RESP 16; TEMP 36.2; O2SAT 97
[2024-01-13 19:36] VITALS: BP 175/79; PULSE 61; RESP 18; TEMP 36.8; O2SAT 96
[2024-01-13] MEDS: Tamsulosin HCL 0.4 MG CAPSULE 0.8 MG PO (20:44)
[2024-01-13] MEDS: Heparin Sodium,Porcine 5,000 UNIT/ML VIAL 5000 UNIT SUBCUT (20:44)
[2024-01-13] MEDS: Atorvastatin Calcium 20 MG TABLET PO (20:44)
[2024-01-14] VITALS (8 sets, daily range): BP systolic 145–182; BP diastolic 72–82; PULSE 53–61; RESP 14–17; TEMP 27.9–37.1; O2SAT 95–96
[2024-01-14] MEDS: vancomycin HCL 125 MG CAPSULE PO ×4 (01:06→20:06)
[2024-01-14] MEDS: HaloperidoL 1 MG TABLET 2 MG PO (04:24)
[2024-01-14] MEDS: amLODIPine Besylate 10 MG TABLET PO (04:24)
[2024-01-14] MEDS: Pantoprazole Sodium 20 MG TABLET.DR PO (05:38)
[2024-01-14] MEDS: Phenytoin Oral Susp 100 MG/4 ML ORAL.SUSP PO ×3 (08:43→20:06)
[2024-01-14] MEDS: Clopidogrel Bisulfate 75 MG TABLET PO (08:43)
[2024-01-14] MEDS: Metoprolol Succinate ER 100 MG TAB.ER.24H PO (08:43)
[2024-01-14] MEDS: Aspirin 81 MG TAB.CHEW PO (08:43)
[2024-01-14] MEDS: 0.9 % Sodium Chloride Flush 3 ML SYRINGE IVFLUSH (08:44)
[2024-01-14] MEDS: Bethanechol Chloride 25 MG TABLET PO ×3 (08:44→20:06)
[2024-01-14] MEDS: Heparin Sodium,Porcine 5,000 UNIT/ML VIAL 5000 UNIT SUBCUT ×2 (08:44→20:06)
[2024-01-14] MEDS: Finasteride 5 MG TABLET PO (08:44)
--- NOTE | 2024-01-14 10:58 | P.PNIM_ITS ---
Subjective Subjective Date of Service: 01/14/24 Interval History: cdiff Review of Systems harriett crystal denies new c/o,no fevers Physical Exam 2 Vital Signs: Vital Signs: Last Vital Signs Temp 98.2 F 01/14/24 08:00 Pulse 53 01/14/24 08:00 Resp 14 01/14/24 08:00 BP 160/80 H 01/14/24 08:00 Pulse Ox 96 01/14/24 08:00 O2 Del Method Room Air 01/14/24 08:00 O2 Flow Rate 2 12/24/23 03:20 BMI result Body Mass Index 18.5 General: AO X 3, no acute distress Resp: CTA bilateral CVS: S1,S2,RRR GI: +BS, NT, no distention Skin: No rash Neuro: motor grossly intact Psych: appropriate affect . Objective Data Active Medications Acetaminophen (Acetaminophen Supp 650 Mg Supp.Rect) 650 mg [place] Q4H PRN PRN Reason: fever, h/a, mild pain Last Admin: 12/19/23 14:52 Dose: 650 mg Documented By: RAUL Al Hydroxide/Mg Hydroxide (Magnesium Hydrox/Alum Hydrox 30 Ml Oral.Susp) 30 ml PO Q6H PRN PRN Reason: Heartburn/Nausea Amlodipine Besylate (Amlodipine Besylate 10 Mg Tablet) 10 mg PO DAILY [facility]; Protocol Last Admin: 01/14/24 04:24 Dose: 10 mg Documented By: LUKASZ Comments: per md to give now Aspirin (Aspirin 81 Mg Tab.Chew) 81 mg PO DAILY [facility] Last Admin: 01/14/24 08:43 Dose: 81 mg Documented By: ANNI Atorvastatin Calcium (Atorvastatin Calcium 20 Mg Tablet) 20 mg PO BEDTIME [facility] Last Admin: 01/13/24 20:44 Dose: 20 mg Documented By: LUKASZ Bethanechol Chloride (Bethanechol Chloride 25 Mg Tablet) 25 mg PO TID [facility] Last Admin: 01/14/24 08:44 Dose: 25 mg Documented By: ANNI Calcium Carbonate (Calcium Carbonate 750 Mg Tab.Chew) 750 mg PO Q4H PRN PRN Reason: Heartburn Clopidogrel Bisulfate (Clopidogrel Bisulfate 75 Mg Tablet) 75 mg PO DAILY [facility] Last Admin: 01/14/24 08:43 Dose: 75 mg Documented By: ANNI Finasteride (Finasteride 5 Mg Tablet) 5 mg PO DAILY [facility] Last Admin: 01/14/24 08:44 Dose: 5 mg Documented By: ANNI Haloperidol (Haloperidol 1 Mg Tablet) 2 mg PO Q6H PRN PRN Reason: agitation Last Admin: 01/14/24 04:24 Dose: 2 mg Documented By: LUKASZ Heparin Sodium (Porcine) (Heparin Sodium,Porcine 5,000 Unit/Ml Vial) 5,000 unit SUBCUT Q12H [facility] Last Admin: 01/14/24 08:44 Dose: 5,000 unit Documented By: ANNI Magnesium Hydroxide (Milk Of Magnesia 30 Ml Oral.Susp) 30 ml PO DAILY PRN PRN Reason: Constipation Melatonin (Melatonin 3 Mg Tablet) 6 mg PO BEDTIME PRN PRN Reason: Insomnia Last Admin: 01/12/24 20:09 Dose: 6 mg Documented By: FERMIN Metoprolol Succinate (Metoprolol Succinate Er 100 Mg Tab.Er.24h) 100 mg PO DAILY [facility]; Protocol Last Admin: 01/14/24 08:43 Dose: 100 mg Documented By: ANNI Pantoprazole Sodium (Pantoprazole Sodium 20 Mg Tablet.) 20 mg PO DAILY@0630 [facility] Last Admin: 01/14/24 05:38 Dose: 20 mg Documented By: LUKASZ Phenytoin (Phenytoin Oral Susp 100 Mg/4 Ml Oral.Susp) 100 mg PO TID [facility] Last Admin: 01/14/24 08:43 Dose: 100 mg Documented By: ANNI Sodium Chloride (0.9 % Sodium Chloride Flush 3 Ml Syringe) 3 ml IVFLUSH QSHIFT [facility] Last Admin: 01/14/24 08:44 Dose: 3 ml Documented By: ANNI Tamsulosin HCl (Tamsulosin Hcl 0.4 Mg Capsule) 0.8 mg PO BEDTIME [facility] Last Admin: 01/13/24 20:44 Dose: 0.8 mg Documented By: LUKASZ Vancomycin HCl (Vancomycin Hcl 125 Mg Capsule) 125 mg PO Q6H [facility] Last Admin: 01/14/24 08:44 Dose: 125 mg Documented By: ANNI Labs 01/09/24 05:39 01/09/24 05:39 Assessment and Plan (1) Major neurocognitive disorder due to another medical condition with behavioral disturbance: Status: Acute Plan 83/F mood disorder, seizure disorder, hypertension, mixed hyperlipidemia, carotid stenosis on DAPT initially admitted to hospitalist service due to acute encephalopathy thought to be secondary to breakthrough partial seizure from [facility]. Had been discharged to geriatric psychiatry now being admitted back to [facility] due to early aspiration pneumonia Overnight episode of unresponsiveness--negative sepsis work up, ammonia normal, It appeared he had seizure Acute metabolic encephalopathy d/t aspiration--resolved -eeg 12/20, no seizure -alert and oriented x 3 -according to he has been declining since beginning of the year C dif--continue PO Vanco started 01/04. Stop IV Flagyl UTI-no fever, normal WBC urine culture e coli senstive to ceftriaxone . completed antibiotics. 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 If persistently high add hydralazine carotid stenosis-continue aspirin/Plavix chronic constipation -bowel regimen urinary retention, chronic, did self-catheterization at [facility] -failed multiple voiding trials, uro rec keeping adames in and outpatient voiding trial -continue flomax, proscar, bethanchol hematuria--resolved. left side scalp lesion -no erythema or discharge consider outpatient management . DVT prophylaxis-heparin, no, compression device, out of bed and ambulate Full code need for inpt: encephalopathy as above, needs placement awaiting safe disposition Quality Stroke Does the patient have a stroke diagnosis?: No VTE Prior VTE?: No VTE Risk Level:: Medical - moderate - high VTE Device Contraindication: Treatment Not Indicated VTE Drug Contraindication: N/A - Med Ordered
[2024-01-14] MEDS: hydrALAZINE HCl 20 MG/ML VIAL 10 MG IVPUSH (17:05)
[2024-01-14] MEDS: Atorvastatin Calcium 20 MG TABLET PO (20:06)
[2024-01-14] MEDS: Tamsulosin HCL 0.4 MG CAPSULE 0.8 MG PO (20:06)
[2024-01-15] VITALS (7 sets, daily range): BP systolic 102–170; BP diastolic 60–84; PULSE 55–60; RESP 14–18; TEMP 36.1–37; O2SAT 94–97
[2024-01-15] MEDS: 0.9 % Sodium Chloride Flush 3 ML SYRINGE IVFLUSH ×3 (00:11→16:07)
[2024-01-15] MEDS: vancomycin HCL 125 MG CAPSULE PO ×4 (00:11→18:25)
[2024-01-15] MEDS: Pantoprazole Sodium 20 MG TABLET.DR PO (05:29)
[2024-01-15] MEDS: Metoprolol Succinate ER 100 MG TAB.ER.24H PO (08:32)
[2024-01-15] MEDS: Aspirin 81 MG TAB.CHEW PO (08:32)
[2024-01-15] MEDS: Phenytoin Oral Susp 100 MG/4 ML ORAL.SUSP PO ×3 (08:32→20:14)
[2024-01-15] MEDS: hydrALAZINE HCl 20 MG/ML VIAL 10 MG IVPUSH (08:33)
[2024-01-15] MEDS: amLODIPine Besylate 10 MG TABLET PO (08:33)
[2024-01-15] MEDS: Clopidogrel Bisulfate 75 MG TABLET PO (08:33)
[2024-01-15] MEDS: Bethanechol Chloride 25 MG TABLET PO ×3 (08:33→20:16)
[2024-01-15] MEDS: Heparin Sodium,Porcine 5,000 UNIT/ML VIAL 5000 UNIT SUBCUT ×2 (08:34→20:17)
[2024-01-15] MEDS: Finasteride 5 MG TABLET PO (08:34)
--- NOTE | 2024-01-15 09:25 | HO.PM.IMPN ---
Subjective Subjective Date of Service: 01/15/24 Interval History: No new issues, diarrha better Physical Exam Vital Signs: Vital Signs: Last Vital Signs Temp 98.2 F 01/15/24 08:00 Pulse 60 01/15/24 08:00 Resp 14 01/15/24 08:00 BP 170/80 H 01/15/24 08:00 Pulse Ox 94 01/15/24 08:00 O2 Del Method Room Air 01/15/24 08:00 O2 Flow Rate 2 12/24/23 03:20 BMI result Body Mass Index 18.5 Const: Other: General: AO X 3, no acute distress Resp: CTA bilateral CVS: S1,S2,RRR GI: +BS, NT, no distention Skin: No rash Neuro: motor grossly intact Psych: appropriate affect Objective Data Active Medications Acetaminophen (Acetaminophen Supp 650 Mg Supp.Rect) 650 mg [place] Q4H PRN PRN Reason: fever, h/a, mild pain Last Admin: 12/19/23 14:52 Dose: 650 mg Documented By: RAUL Al Hydroxide/Mg Hydroxide (Magnesium Hydrox/Alum Hydrox 30 Ml Oral.Susp) 30 ml PO Q6H PRN PRN Reason: Heartburn/Nausea Amlodipine Besylate (Amlodipine Besylate 10 Mg Tablet) 10 mg PO DAILY [facility]; Protocol Last Admin: 01/15/24 08:33 Dose: 10 mg Documented By: MARGY Aspirin (Aspirin 81 Mg Tab.Chew) 81 mg PO DAILY [facility] Last Admin: 01/15/24 08:32 Dose: 81 mg Documented By: MARGY Atorvastatin Calcium (Atorvastatin Calcium 20 Mg Tablet) 20 mg PO BEDTIME [facility] Last Admin: 01/14/24 20:06 Dose: 20 mg Documented By: LUKASZ Bethanechol Chloride (Bethanechol Chloride 25 Mg Tablet) 25 mg PO TID [facility] Last Admin: 01/15/24 08:33 Dose: 25 mg Documented By: MARGY Calcium Carbonate (Calcium Carbonate 750 Mg Tab.Chew) 750 mg PO Q4H PRN PRN Reason: Heartburn Clopidogrel Bisulfate (Clopidogrel Bisulfate 75 Mg Tablet) 75 mg PO DAILY [facility] Last Admin: 01/15/24 08:33 Dose: 75 mg Documented By: MARGY Finasteride (Finasteride 5 Mg Tablet) 5 mg PO DAILY [facility] Last Admin: 01/15/24 08:34 Dose: 5 mg Documented By: MARGY Haloperidol (Haloperidol 1 Mg Tablet) 2 mg PO Q6H PRN PRN Reason: agitation Last Admin: 01/14/24 04:24 Dose: 2 mg Documented By: LUKASZ Heparin Sodium (Porcine) (Heparin Sodium,Porcine 5,000 Unit/Ml Vial) 5,000 unit SUBCUT Q12H [facility] Last Admin: 01/15/24 08:34 Dose: 5,000 unit Documented By: MARGY Hydralazine HCl (Hydralazine Hcl 20 Mg/Ml Vial) 10 mg IVPUSH Q6H PRN; Protocol PRN Reason: Htn Last Admin: 01/15/24 08:33 Dose: 10 mg Documented By: MARGY Magnesium Hydroxide (Milk Of Magnesia 30 Ml Oral.Susp) 30 ml PO DAILY PRN PRN Reason: Constipation Melatonin (Melatonin 3 Mg Tablet) 6 mg PO BEDTIME PRN PRN Reason: Insomnia Last Admin: 01/12/24 20:09 Dose: 6 mg Documented By: FERMIN Metoprolol Succinate (Metoprolol Succinate Er 100 Mg Tab.Er.24h) 100 mg PO DAILY [facility]; Protocol Last Admin: 01/15/24 08:32 Dose: 100 mg Documented By: MARGY Pantoprazole Sodium (Pantoprazole Sodium 20 Mg Tablet.Dr) 20 mg PO DAILY@0630 [facility] Last Admin: 01/15/24 05:29 Dose: 20 mg Documented By: LUKASZ Phenytoin (Phenytoin Oral Susp 100 Mg/4 Ml Oral.Susp) 100 mg PO TID [facility] Last Admin: 01/15/24 08:32 Dose: 100 mg Documented By: MARGY Sodium Chloride (0.9 % Sodium Chloride Flush 3 Ml Syringe) 3 ml IVFLUSH QSHIFT [facility] Last Admin: 01/15/24 08:49 Dose: 3 ml Documented By: MARGY Tamsulosin HCl (Tamsulosin Hcl 0.4 Mg Capsule) 0.8 mg PO BEDTIME [facility] Last Admin: 01/14/24 20:06 Dose: 0.8 mg Documented By: LUKASZ Vancomycin HCl (Vancomycin Hcl 125 Mg Capsule) 125 mg PO Q6H [facility] Last Admin: 01/15/24 08:33 Dose: 125 mg Documented By: MARGY Labs 01/09/24 05:39 01/09/24 05:39 Assessment and Plan (1) Major neurocognitive disorder due to another medical condition with behavioral disturbance: Status: Acute Plan 83/F mood disorder, seizure disorder, HTN, HLD, carotid stenosis on DAPT admitted from Psych d/t aspiration PNA, after d/c to Psych following management for encephalopathy related to seizure C dif--continue PO Vanco started 01/04, ends 01/17 (14 days) UTI-d/t e.coli, completed treatment with Ceftriaxone unspecified dementia with behavioral disturbance -Haldol per Psych recommendation, hasn't received a dose since 01/13 -psychiatry following -lacks capacity to make decision -HCP invoked () Aspiration pneumonia--has completed treatment with Zosyn and 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 Add hydralzine 10 bid carotid stenosis-continue aspirin/Plavix urinary retention, chronic, [facility]failed multiple voiding trials, uro rec keeping adames in and outpatient voiding trial -continue flomax, proscar, bethanchol left side scalp lesion -no erythema or discharge consider outpatient management . resolved issues Acute metabolic encephalopathy d/t aspiration--resolved -eeg 12/20, no seizure -now alert and oriented x 3 -according to he has been declining since beginning of the year chronic constipation -bowel regimen hematuria--resolved. DVT prophylaxis-heparin, no, compression device, out of bed and ambulate Full code need for inpt: encephalopathy as above, needs placement awaiting safe disposition Quality Stroke Does the patient have a stroke diagnosis?: No VTE Prior VTE?: No VTE Risk Level:: Medical - moderate - high VTE Device Contraindication: Treatment Not Indicated VTE Drug Contraindication: N/A - Med Ordered
--- NOTE | 2024-01-15 15:02 | MHC.CM.PN ---
THIS CM SPOKE WITH YANNICK WHO STATES A NURSE REVIEWER WILL BE IN TOMORROW TO SEE PT TO SCREEN FOR POSSIBLE ADMISSION FROM [place] [facility]. ALSO STATES SHE WILL BE TOURING [employer] [facility] ON WEDNESDAY 01/17. CM CONTINUES TO FOLLOW FOR PLAN.
[2024-01-15] MEDS: Tamsulosin HCL 0.4 MG CAPSULE 0.8 MG PO (20:15)
[2024-01-15] MEDS: Atorvastatin Calcium 20 MG TABLET PO (20:16)
[2024-01-15] MEDS: hydrALAZINE HCl 10 MG TABLET PO (20:16)
[2024-01-16] MEDS: vancomycin HCL 125 MG CAPSULE PO ×5 (01:48→23:37)
[2024-01-16 03:25] VITALS: BP 155/72; PULSE 59; RESP 16; TEMP 36.8; O2SAT 95
[2024-01-16] MEDS: Pantoprazole Sodium 20 MG TABLET.DR PO (06:30)
[2024-01-16 08:14] VITALS: BP 157/82; PULSE 65; RESP 18; TEMP 36.1; O2SAT 95
[2024-01-16] MEDS: Bethanechol Chloride 25 MG TABLET PO ×3 (08:53→20:34)
[2024-01-16] MEDS: 0.9 % Sodium Chloride Flush 3 ML SYRINGE IVFLUSH ×3 (08:53→23:38)
[2024-01-16] MEDS: Phenytoin Oral Susp 100 MG/4 ML ORAL.SUSP PO ×3 (08:53→20:33)
[2024-01-16] MEDS: Clopidogrel Bisulfate 75 MG TABLET PO (08:54)
[2024-01-16] MEDS: Heparin Sodium,Porcine 5,000 UNIT/ML VIAL 5000 UNIT SUBCUT ×2 (08:54→20:34)
[2024-01-16] MEDS: Finasteride 5 MG TABLET PO (08:54)
[2024-01-16] MEDS: Metoprolol Succinate ER 100 MG TAB.ER.24H PO (08:54)
[2024-01-16] MEDS: hydrALAZINE HCl 10 MG TABLET PO ×2 (08:54→20:34)
[2024-01-16] MEDS: Aspirin 81 MG TAB.CHEW PO (08:54)
[2024-01-16] MEDS: amLODIPine Besylate 10 MG TABLET PO (08:54)
--- NOTE | 2024-01-16 09:37 | P.PNIM_ITS ---
Subjective Subjective Date of Service: 01/16/24 Interval History: He's doing well, no new issues, cooperative Physical Exam 2 Vital Signs: Vital Signs: Last Vital Signs Temp 96.9 F 01/16/24 08:14 Pulse 65 01/16/24 08:14 Resp 18 01/16/24 08:14 BP 157/82 H 01/16/24 08:14 Pulse Ox 95 01/16/24 08:14 O2 Del Method Room Air 01/16/24 08:14 O2 Flow Rate 2 12/24/23 03:20 BMI result Body Mass Index 18.5 Const: Other: General: AO X 3, no acute distress Resp: CTA bilateral CVS: S1,S2,RRR GI: +BS, NT, no distention Skin: No rash Neuro: motor grossly intact Psych: appropriate affect Objective Data Active Medications Acetaminophen (Acetaminophen Supp 650 Mg Supp.Rect) 650 mg OR Q4H PRN PRN Reason: fever, h/a, mild pain Last Admin: 12/19/23 14:52 Dose: 650 mg Documented By: RAUL Al Hydroxide/Mg Hydroxide (Magnesium Hydrox/Alum Hydrox 30 Ml Oral.Susp) 30 ml PO Q6H PRN PRN Reason: Heartburn/Nausea Amlodipine Besylate (Amlodipine Besylate 10 Mg Tablet) 10 mg PO DAILY [facility]; Protocol Last Admin: 01/16/24 08:54 Dose: 10 mg Documented By: MARGY Aspirin (Aspirin 81 Mg Tab.Chew) 81 mg PO DAILY [facility] Last Admin: 01/16/24 08:54 Dose: 81 mg Documented By: MARGY Atorvastatin Calcium (Atorvastatin Calcium 20 Mg Tablet) 20 mg PO BEDTIME [facility] Last Admin: 01/15/24 20:16 Dose: 20 mg Documented By: LIGIA Bethanechol Chloride (Bethanechol Chloride 25 Mg Tablet) 25 mg PO TID [facility] Last Admin: 01/16/24 08:53 Dose: 25 mg Documented By: MARGY Calcium Carbonate (Calcium Carbonate 750 Mg Tab.Chew) 750 mg PO Q4H PRN PRN Reason: Heartburn Clopidogrel Bisulfate (Clopidogrel Bisulfate 75 Mg Tablet) 75 mg PO DAILY [facility] Last Admin: 01/16/24 08:54 Dose: 75 mg Documented By: MARGY Finasteride (Finasteride 5 Mg Tablet) 5 mg PO DAILY [facility] Last Admin: 01/16/24 08:54 Dose: 5 mg Documented By: MARGY Haloperidol (Haloperidol 1 Mg Tablet) 2 mg PO Q6H PRN PRN Reason: agitation Last Admin: 01/14/24 04:24 Dose: 2 mg Documented By: LUKASZ Heparin Sodium (Porcine) (Heparin Sodium,Porcine 5,000 Unit/Ml Vial) 5,000 unit SUBCUT Q12H [facility] Last Admin: 01/16/24 08:54 Dose: 5,000 unit Documented By: MARGY Hydralazine HCl (Hydralazine Hcl 10 Mg Tablet) 10 mg PO BID [facility]; Protocol Last Admin: 01/16/24 08:54 Dose: 10 mg Documented By: MARGY Magnesium Hydroxide (Milk Of Magnesia 30 Ml Oral.Susp) 30 ml PO DAILY PRN PRN Reason: Constipation Melatonin (Melatonin 3 Mg Tablet) 6 mg PO BEDTIME PRN PRN Reason: Insomnia Last Admin: 01/12/24 20:09 Dose: 6 mg Documented By: FERMIN Metoprolol Succinate (Metoprolol Succinate Er 100 Mg Tab.Er.24h) 100 mg PO DAILY [facility]; Protocol Last Admin: 01/16/24 08:54 Dose: 100 mg Documented By: MARGY Pantoprazole Sodium (Pantoprazole Sodium 20 Mg Tablet.Dr) 20 mg PO DAILY@0630 [facility] Last Admin: 01/16/24 06:30 Dose: 20 mg Documented By: LIGIA Phenytoin (Phenytoin Oral Susp 100 Mg/4 Ml Oral.Susp) 100 mg PO TID [facility] Last Admin: 01/16/24 08:53 Dose: 100 mg Documented By: MARGY Sodium Chloride (0.9 % Sodium Chloride Flush 3 Ml Syringe) 3 ml IVFLUSH QSHIFT [facility] Last Admin: 01/16/24 08:53 Dose: 3 ml Documented By: MARGY Tamsulosin HCl (Tamsulosin Hcl 0.4 Mg Capsule) 0.8 mg PO BEDTIME [facility] Last Admin: 01/15/24 20:15 Dose: 0.8 mg Documented By: LIGIA Labs 01/09/24 05:39 01/09/24 05:39 Assessment and Plan (1) Major neurocognitive disorder due to another medical condition with behavioral disturbance: Status: Acute Plan 83/F mood disorder, seizure disorder, HTN, HLD, carotid stenosis on DAPT admitted from Psych d/t aspiration PNA, after d/c to Psych following management for encephalopathy related to seizure C dif--continue PO Vanco started 01/04, ends 01/17 (14 days) UTI-d/t e.coli, completed treatment with Ceftriaxone unspecified dementia with behavioral disturbance -Haldol per Psych recommendation, hasn't received a dose since 01/13 -psychiatry following -lacks capacity to make decision -HCP invoked () Aspiration pneumonia--has completed treatment with Zosyn and 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 Add hydralzine 10 bid carotid stenosis-continue aspirin/Plavix urinary retention, chronic, did self-catheterization at [facility] -failed multiple voiding trials, uro rec keeping adames in and outpatient voiding trial -continue flomax, proscar, bethanchol left side scalp lesion -no erythema or discharge consider outpatient management . resolved issues Acute metabolic encephalopathy d/t aspiration--resolved -eeg 12/20, no seizure -now alert and oriented x 3 -according to he has been declining since beginning of the year chronic constipation -bowel regimen hematuria--resolved. DVT prophylaxis-heparin, no, compression device, out of bed and ambulate Full code need for inpt: encephalopathy as above, needs placement awaiting safe disposition Quality Stroke Does the patient have a stroke diagnosis?: No VTE Prior VTE?: No VTE Risk Level:: Medical - moderate - high VTE Device Contraindication: Treatment Not Indicated VTE Drug Contraindication: N/A - Med Ordered
--- NOTE | 2024-01-16 13:22 | MHC.CM.PN ---
[facility] CAME TO SEE PT TODAY THEY HAVE ACCEPTED PT AT [facility] ,WHEN A BED IS AVALIABLE THEY WILL BE CALLING TODAY TO UPDATE HER
[2024-01-16 16:08] VITALS: BP 122/58; PULSE 53; RESP 18; TEMP 36.6; O2SAT 96
[2024-01-16 19:28] VITALS: BP 162/75; PULSE 55; RESP 16; TEMP 36.8; O2SAT 93
[2024-01-16 20:34] VITALS: BP 162/75
[2024-01-16] MEDS: Atorvastatin Calcium 20 MG TABLET PO (20:34)
[2024-01-16] MEDS: Tamsulosin HCL 0.4 MG CAPSULE 0.8 MG PO (20:34)
[2024-01-17 04:00] VITALS: BP 139/76; PULSE 55; RESP 16; TEMP 36.4; O2SAT 96
[2024-01-17] MEDS: Pantoprazole Sodium 20 MG TABLET.DR PO (06:00)
[2024-01-17] MEDS: vancomycin HCL 125 MG CAPSULE PO ×3 (06:00→18:06)
[2024-01-17 07:50] VITALS: BP 164/77; PULSE 56; RESP 20; TEMP 36.1; O2SAT 96
[2024-01-17] MEDS: Heparin Sodium,Porcine 5,000 UNIT/ML VIAL 5000 UNIT SUBCUT ×2 (07:54→20:54)
[2024-01-17] MEDS: 0.9 % Sodium Chloride Flush 3 ML SYRINGE IVFLUSH (07:55)
[2024-01-17] MEDS: Aspirin 81 MG TAB.CHEW PO (07:56)
[2024-01-17] MEDS: Phenytoin Oral Susp 100 MG/4 ML ORAL.SUSP PO ×3 (07:56→20:53)
[2024-01-17] MEDS: Clopidogrel Bisulfate 75 MG TABLET PO (07:56)
[2024-01-17] MEDS: amLODIPine Besylate 10 MG TABLET PO (07:56)
[2024-01-17] MEDS: hydrALAZINE HCl 10 MG TABLET PO ×2 (07:57→20:53)
[2024-01-17] MEDS: Bethanechol Chloride 25 MG TABLET PO ×3 (07:58→20:53)
[2024-01-17] MEDS: Finasteride 5 MG TABLET PO (07:58)
--- NOTE | 2024-01-17 08:08 | PC.NURSE ---
HR 56 ,held Metroprolol ,Dr. Sinha made aware
--- NOTE | 2024-01-17 08:44 | HO.PM.IMPN ---
Subjective Subjective Date of Service: 01/17/24 Interval History: He's doing well, no new issues, cooperative. He would like to do a voiding trial Physical Exam Vital Signs: Vital Signs: Last Vital Signs Temp 96.9 F 01/17/24 07:50 Pulse 56 01/17/24 07:50 Resp 20 01/17/24 07:50 BP 164/77 H 01/17/24 07:50 Pulse Ox 96 01/17/24 07:50 O2 Del Method Room Air 01/17/24 07:50 O2 Flow Rate 2 12/24/23 03:20 BMI result Body Mass Index 18.5 Const: Other: General: AO X 3, no acute distress Resp: CTA bilateral CVS: S1,S2,RRR GI: +BS, NT, no distention Skin: No rash Neuro: motor grossly intact Psych: appropriate affect Objective Data Active Medications Acetaminophen (Acetaminophen Supp 650 Mg Supp.Rect) 650 mg [place] Q4H PRN PRN Reason: fever, h/a, mild pain Last Admin: 12/19/23 14:52 Dose: 650 mg Documented By: RAUL Al Hydroxide/Mg Hydroxide (Magnesium Hydrox/Alum Hydrox 30 Ml Oral.Susp) 30 ml PO Q6H PRN PRN Reason: Heartburn/Nausea Amlodipine Besylate (Amlodipine Besylate 10 Mg Tablet) 10 mg PO DAILY [facility]; Protocol Last Admin: 01/17/24 07:56 Dose: 10 mg Documented By: RAJINDER Aspirin (Aspirin 81 Mg Tab.Chew) 81 mg PO DAILY [facility] Last Admin: 01/17/24 07:56 Dose: 81 mg Documented By: RAJINDER Atorvastatin Calcium (Atorvastatin Calcium 20 Mg Tablet) 20 mg PO BEDTIME [facility] Last Admin: 01/16/24 20:34 Dose: 20 mg Documented By: LIGIA Bethanechol Chloride (Bethanechol Chloride 25 Mg Tablet) 25 mg PO TID [facility] Last Admin: 01/17/24 07:58 Dose: 25 mg Documented By: RAJINDER Calcium Carbonate (Calcium Carbonate 750 Mg Tab.Chew) 750 mg PO Q4H PRN PRN Reason: Heartburn Clopidogrel Bisulfate (Clopidogrel Bisulfate 75 Mg Tablet) 75 mg PO DAILY [facility] Last Admin: 01/17/24 07:56 Dose: 75 mg Documented By: RAJINDER Finasteride (Finasteride 5 Mg Tablet) 5 mg PO DAILY [facility] Last Admin: 01/17/24 07:58 Dose: 5 mg Documented By: RAJINDER Haloperidol (Haloperidol 1 Mg Tablet) 2 mg PO Q6H PRN PRN Reason: agitation Last Admin: 01/14/24 04:24 Dose: 2 mg Documented By: LUKASZ Heparin Sodium (Porcine) (Heparin Sodium,Porcine 5,000 Unit/Ml Vial) 5,000 unit SUBCUT Q12H [facility] Last Admin: 01/17/24 07:54 Dose: 5,000 unit Documented By: RAJINDER Hydralazine HCl (Hydralazine Hcl 10 Mg Tablet) 10 mg PO BID [facility]; Protocol Last Admin: 01/17/24 07:57 Dose: 10 mg Documented By: RAJINDER Magnesium Hydroxide (Milk Of Magnesia 30 Ml Oral.Susp) 30 ml PO DAILY PRN PRN Reason: Constipation Melatonin (Melatonin 3 Mg Tablet) 6 mg PO BEDTIME PRN PRN Reason: Insomnia Last Admin: 01/12/24 20:09 Dose: 6 mg Documented By: FERMIN Metoprolol Succinate (Metoprolol Succinate Er 100 Mg Tab.Er.24h) 100 mg PO DAILY [facility]; Protocol Last Admin: 01/17/24 07:57 Dose: Not Given Documented By: RAJINDER Non-Admin Reason: HR 56 Pantoprazole Sodium (Pantoprazole Sodium 20 Mg Tablet.Dr) 20 mg PO DAILY@0630 [facility] Last Admin: 01/17/24 06:00 Dose: 20 mg Documented By: LIGIA Phenytoin (Phenytoin Oral Susp 100 Mg/4 Ml Oral.Susp) 100 mg PO TID [facility] Last Admin: 01/17/24 07:56 Dose: 100 mg Documented By: RAJINDER Sodium Chloride (0.9 % Sodium Chloride Flush 3 Ml Syringe) 3 ml IVFLUSH QSHIFT [facility] Last Admin: 01/17/24 07:55 Dose: 3 ml Documented By: RAJINDER Tamsulosin HCl (Tamsulosin Hcl 0.4 Mg Capsule) 0.8 mg PO BEDTIME [facility] Last Admin: 01/16/24 20:34 Dose: 0.8 mg Documented By: LIGIA Vancomycin HCl (Vancomycin Hcl 125 Mg Capsule) 125 mg PO Q6H [facility] Last Admin: 01/17/24 06:00 Dose: 125 mg Documented By: LIGIA Labs 01/09/24 05:39 01/09/24 05:39 Assessment and Plan (1) Major neurocognitive disorder due to another medical condition with behavioral disturbance: Status: Acute Plan 83/F mood disorder, seizure disorder, HTN, HLD, carotid stenosis on DAPT admitted from Psych d/t aspiration PNA, after d/c to Psych following management for encephalopathy related to seizure C dif--continue PO Vanco started 01/04, ends 01/17 (14 days) UTI-d/t e.coli, completed treatment with Ceftriaxone unspecified dementia with behavioral disturbance -Haldol per Psych recommendation, hasn't received a dose since 01/13 -psychiatry following -lacks capacity to make decision -HCP invoked () Aspiration pneumonia--has completed treatment with Zosyn and Augmentin 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 Add hydralzine 10 bid carotid stenosis-continue aspirin/Plavix urinary retention, chronic, did self-catheterization at [facility] -failed multiple voiding trials, uro rec keeping adames in and outpatient voiding trial, but since still here would like to try -continue flomax, proscar, bethanchol left side scalp lesion -no erythema or discharge consider outpatient management . resolved issues Acute metabolic encephalopathy d/t aspiration--resolved -eeg 12/20, no seizure -now alert and oriented x 3 -according to he has been declining since beginning of the year chronic constipation -bowel regimen hematuria--resolved. DVT prophylaxis-heparin, no, compression device, out of bed and ambulate Full code need for inpt: encephalopathy as above, needs placement awaiting safe disposition Quality Stroke Does the patient have a stroke diagnosis?: No VTE Prior VTE?: No VTE Risk Level:: Medical - moderate - high VTE Device Contraindication: Treatment Not Indicated VTE Drug Contraindication: N/A - Med Ordered
--- NOTE | 2024-01-17 15:03 | PC.NURSE ---
IV outdated,ok to keep IV out per Dr. Sinha
[2024-01-17 15:44] VITALS: BP 141/68; PULSE 50; RESP 18; TEMP 36.9; O2SAT 95
[2024-01-17 19:28] VITALS: BP 152/76; PULSE 64; RESP 18; TEMP 36.9; O2SAT 96
[2024-01-17 20:53] VITALS: BP 152/72
[2024-01-17] MEDS: Tamsulosin HCL 0.4 MG CAPSULE 0.8 MG PO (20:53)
[2024-01-17] MEDS: Atorvastatin Calcium 20 MG TABLET PO (20:53)
[2024-01-17] MEDS: Melatonin 3 MG TABLET 6 MG PO (20:53)
[2024-01-18] MEDS: vancomycin HCL 125 MG CAPSULE PO ×5 (00:32→23:59)
[2024-01-18 03:04] VITALS: BP 163/76; PULSE 65; RESP 16; TEMP 36.6; O2SAT 95
[2024-01-18 07:57] VITALS: BP 182/110; PULSE 54; RESP 17; TEMP 37.2; O2SAT 94
[2024-01-18] MEDS: Phenytoin Oral Susp 100 MG/4 ML ORAL.SUSP PO ×3 (08:00→20:45)
[2024-01-18] MEDS: Pantoprazole Sodium 20 MG TABLET.DR PO (08:00)
[2024-01-18] MEDS: hydrALAZINE HCl 10 MG TABLET PO ×2 (08:00→20:45)
[2024-01-18] MEDS: Finasteride 5 MG TABLET PO (08:00)
[2024-01-18] MEDS: Heparin Sodium,Porcine 5,000 UNIT/ML VIAL 5000 UNIT SUBCUT ×2 (08:00→20:45)
[2024-01-18] MEDS: Aspirin 81 MG TAB.CHEW PO (08:00)
[2024-01-18] MEDS: Bethanechol Chloride 25 MG TABLET PO ×3 (08:01→20:45)
[2024-01-18] MEDS: Clopidogrel Bisulfate 75 MG TABLET PO (08:01)
[2024-01-18] MEDS: Metoprolol Succinate ER 100 MG TAB.ER.24H PO (08:01)
[2024-01-18] MEDS: amLODIPine Besylate 10 MG TABLET PO (08:01)
[2024-01-18 08:46] LABS: Hematocrit 35.8 % (42.0-52.0); Hemoglobin 12.4 g/dl (14.0-18.0); Mean Corpuscular HGB Conc 34.6 g/dl (31.0-36.0); Mean Corpuscular Hemoglobin 34.7 pg (27.0-33.0); Mean Corpuscular Volume 100.3 fL (80.0-98.0); Platelet Count 305 X10*3/uL (160-400); Red Blood Count 3.57 X10*6/uL (4.60-5.80); Red Cell Distribution Width 15.3 % (11.0-16.0)
[2024-01-18 08:52] VITALS: BP 115/55; PULSE 62
[2024-01-18 09:05] LABS: Anion Gap 13 (12-20); Blood Urea Nitrogen 25 mg/dL (9-16); Calcium 9.4 mg/dL (8.4-10.2); Carbon Dioxide 24 mmol/L (22-29); Chloride 102 mmol/L (96-108); Creatinine Clr Calc Pharmacy 47.9; Estimated Glomerular Filt Rate > 60; Glucose Random 118 mg/dL (60-115); Potassium 3.8 mmol/L (3.3-5.1); Sodium 135 mmol/L (135-145)
--- NOTE | 2024-01-18 09:15 | HO.PM.IMPN ---
Subjective Subjective Date of Service: 01/18/24 Interval History: Doing well, no new issues Physical Exam Vital Signs: Vital Signs: Last Vital Signs Temp 98.9 F 01/18/24 07:57 Pulse 62 01/18/24 08:52 Resp 17 01/18/24 07:57 BP 115/55 L 01/18/24 08:52 Pulse Ox 94 01/18/24 07:57 O2 Del Method Room Air 01/18/24 07:57 O2 Flow Rate 2 12/24/23 03:20 BMI result Body Mass Index 18.5 Const: Other: General: AO X 3, no acute distress Resp: CTA bilateral CVS: S1,S2,RRR GI: +BS, NT, no distention Skin: No rash Neuro: motor grossly intact Psych: appropriate affect Objective Data Active Medications Acetaminophen (Acetaminophen Supp 650 Mg Supp.Rect) 650 mg [place] Q4H PRN PRN Reason: fever, h/a, mild pain Last Admin: 12/19/23 14:52 Dose: 650 mg Documented By: RAUL Al Hydroxide/Mg Hydroxide (Magnesium Hydrox/Alum Hydrox 30 Ml Oral.Susp) 30 ml PO Q6H PRN PRN Reason: Heartburn/Nausea Amlodipine Besylate (Amlodipine Besylate 10 Mg Tablet) 10 mg PO DAILY [facility]; Protocol Last Admin: 01/18/24 08:01 Dose: 10 mg Documented By: JUSTINA Aspirin (Aspirin 81 Mg Tab.Chew) 81 mg PO DAILY [facility] Last Admin: 01/18/24 08:00 Dose: 81 mg Documented By: JUSTINA Atorvastatin Calcium (Atorvastatin Calcium 20 Mg Tablet) 20 mg PO BEDTIME [facility] Last Admin: 01/17/24 20:53 Dose: 20 mg Documented By: DARIEN Bethanechol Chloride (Bethanechol Chloride 25 Mg Tablet) 25 mg PO TID [facility] Last Admin: 01/18/24 08:01 Dose: 25 mg Documented By: JUSTINA Calcium Carbonate (Calcium Carbonate 750 Mg Tab.Chew) 750 mg PO Q4H PRN PRN Reason: Heartburn Clopidogrel Bisulfate (Clopidogrel Bisulfate 75 Mg Tablet) 75 mg PO DAILY [facility] Last Admin: 01/18/24 08:01 Dose: 75 mg Documented By: JUSTINA Finasteride (Finasteride 5 Mg Tablet) 5 mg PO DAILY [facility] Last Admin: 01/18/24 08:00 Dose: 5 mg Documented By: JUSTINA Haloperidol (Haloperidol 1 Mg Tablet) 2 mg PO Q6H PRN PRN Reason: agitation Last Admin: 01/14/24 04:24 Dose: 2 mg Documented By: LUKASZ Heparin Sodium (Porcine) (Heparin Sodium,Porcine 5,000 Unit/Ml Vial) 5,000 unit SUBCUT Q12H [facility] Last Admin: 01/18/24 08:00 Dose: 5,000 unit Documented By: JUSTINA Hydralazine HCl (Hydralazine Hcl 10 Mg Tablet) 10 mg PO BID [facility]; Protocol Last Admin: 01/18/24 08:00 Dose: 10 mg Documented By: JUSTINA Magnesium Hydroxide (Milk Of Magnesia 30 Ml Oral.Susp) 30 ml PO DAILY PRN PRN Reason: Constipation Melatonin (Melatonin 3 Mg Tablet) 6 mg PO BEDTIME PRN PRN Reason: Insomnia Last Admin: 01/17/24 20:53 Dose: 6 mg Documented By: DARIEN Metoprolol Succinate (Metoprolol Succinate Er 100 Mg Tab.Er.24h) 100 mg PO DAILY [facility]; Protocol Last Admin: 01/18/24 08:01 Dose: 100 mg Documented By: JUSTINA Pantoprazole Sodium (Pantoprazole Sodium 20 Mg Tablet.Dr) 20 mg PO DAILY@0630 [facility] Last Admin: 01/18/24 08:00 Dose: 20 mg Documented By: JUSTINA Phenytoin (Phenytoin Oral Susp 100 Mg/4 Ml Oral.Susp) 100 mg PO TID [facility] Last Admin: 01/18/24 08:00 Dose: 100 mg Documented By: JUSTINA Sodium Chloride (0.9 % Sodium Chloride Flush 3 Ml Syringe) 3 ml IVFLUSH QSHIFT [facility] Last Admin: 01/18/24 07:58 Dose: Not Given Documented By: JUSTINA Non-Admin Reason: No Access Tamsulosin HCl (Tamsulosin Hcl 0.4 Mg Capsule) 0.8 mg PO BEDTIME [facility] Last Admin: 01/17/24 20:53 Dose: 0.8 mg Documented By: DARIEN Vancomycin HCl (Vancomycin Hcl 125 Mg Capsule) 125 mg PO Q6H [facility] Last Admin: 01/18/24 08:01 Dose: 125 mg Documented By: JUSTINA Labs 01/18/24 08:18 01/18/24 08:18 Labs: Laboratory Results - last 24 hr 01/18/24 08:18 MCV 100.3 H MCH 34.7 H MCHC 34.6 RDW 15.3 Plt Count 305 MPV 10.0 Absolute Nucleated RBC 0.000 Nucleated RBC % (auto) 0.0 Anion Gap 13 Estim Creat Clear Calc 47.9 Estimated GFR > 60 Random Glucose 118 H Calcium 9.4 Assessment and Plan (1) Major neurocognitive disorder due to another medical condition with behavioral disturbance: Status: Acute Plan 83/F mood disorder, seizure disorder, HTN, HLD, carotid stenosis on DAPT admitted from Psych d/t aspiration PNA, after d/c to Psych following management for encephalopathy related to seizure C dif--continue PO Vanco started 01/04, ends 01/17 (14 days) UTI-d/t e.coli, completed treatment with Ceftriaxone unspecified dementia with behavioral disturbance -Haldol per Psych recommendation, hasn't received a dose since 01/13 -psychiatry following -lacks capacity to make decision -HCP invoked () Aspiration pneumonia--has completed treatment with Zosyn and 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 Add hydralzine 10 bid carotid stenosis-continue aspirin/Plavix urinary retention, chronic, did self-[facility]atheterization [facility] -failed multiple voiding trials, uro rec keeping adames in and outpatient voiding trial, but since still here would like to try -continue flomax, proscar, bethanchol left side scalp lesion -no erythema or discharge consider outpatient management . resolved issues Acute metabolic encephalopathy d/t aspiration--resolved -eeg 12/20, no seizure -now alert and oriented x 3 -according to he has been declining since beginning of the year chronic constipation -bowel regimen hematuria--resolved. DVT prophylaxis-heparin, no, compression device, out of bed and ambulate Full code need for inpt: encephalopathy as above, needs placement awaiting safe disposition Quality Stroke Does the patient have a stroke diagnosis?: No VTE Prior VTE?: No VTE Risk Level:: Medical - moderate - high VTE Device Contraindication: Treatment Not Indicated VTE Drug Contraindication: N/A - Med Ordered
--- NOTE | 2024-01-18 10:26 | MHC.CM.PN ---
Addendum entered by Mary Yusuf 01/18/24 13:03: CM INFORMED [facility] IS PREPARED TO ACCEPT PT ON MONDAY, JANUARY 22, 2024 CM WILL CONTACT PTS TO DISCUSS TRANSITION Original Note: [facility] HAS ACCEPTED PT AT [facility] THEY WILL CONTACT PTS WHEN A BED BECOMES AVAILABLE PTS IS ALSO WORKING WITH [employer] TO DETERMINE IF PT WOULD BE ACCEPTED THERE
--- NOTE | 2024-01-18 13:35 | MHC.CLN ---
F/U DIET=REGULAR WITH THIN LIQUIDS. ENSURE BID TO PROMOTE NUTRITIONAL INTAKE. SUPPLEMENT PROVIDES 700 KCALS, 40 G PROTEIN. USUAL INTAKE MOST MEALS 100%. CONTINUE TO MONITOR WEEKLY.
[2024-01-18 15:26] VITALS: BP 135/66; PULSE 56; RESP 17; TEMP 37.3; O2SAT 94
[2024-01-18 20:00] VITALS: BP 136/65; PULSE 50; RESP 16; TEMP 36.9; O2SAT 93
[2024-01-18] MEDS: Tamsulosin HCL 0.4 MG CAPSULE 0.8 MG PO (20:45)
[2024-01-18] MEDS: Atorvastatin Calcium 20 MG TABLET PO (20:45)
[2024-01-19 03:12] VITALS: BP 152/78; PULSE 63; RESP 18; TEMP 36.6; O2SAT 97
[2024-01-19] MEDS: Pantoprazole Sodium 20 MG TABLET.DR PO (05:40)
[2024-01-19] MEDS: vancomycin HCL 125 MG CAPSULE PO ×3 (05:40→17:49)
[2024-01-19 07:37] VITALS: BP 177/85; PULSE 58; RESP 17; TEMP 37.2; O2SAT 94
[2024-01-19] MEDS: Heparin Sodium,Porcine 5,000 UNIT/ML VIAL 5000 UNIT SUBCUT ×2 (08:56→20:09)
[2024-01-19] MEDS: Phenytoin Oral Susp 100 MG/4 ML ORAL.SUSP PO ×3 (08:58→20:08)
[2024-01-19] MEDS: hydrALAZINE HCl 10 MG TABLET PO ×2 (09:10→20:10)
[2024-01-19] MEDS: Metoprolol Succinate ER 100 MG TAB.ER.24H PO (09:10)
[2024-01-19] MEDS: Clopidogrel Bisulfate 75 MG TABLET PO (09:11)
[2024-01-19] MEDS: Finasteride 5 MG TABLET PO (09:11)
[2024-01-19] MEDS: Aspirin 81 MG TAB.CHEW PO (09:11)
[2024-01-19] MEDS: amLODIPine Besylate 10 MG TABLET PO (09:11)
[2024-01-19] MEDS: Bethanechol Chloride 25 MG TABLET PO ×3 (09:11→20:09)
[2024-01-19 09:39] VITALS: BP 101/62
--- NOTE | 2024-01-19 10:02 | HO.PM.IMPN ---
Subjective Subjective Date of Service: 01/19/24 Interval History: Doing well, no new issues would like adames and to have stright cath instead Physical Exam Vital Signs: Vital Signs: Last Vital Signs Temp 99 F 01/19/24 07:37 Pulse 58 01/19/24 07:37 Resp 17 01/19/24 07:37 BP 101/62 01/19/24 09:39 Pulse Ox 94 01/19/24 07:37 O2 Del Method Room Air 01/19/24 07:37 O2 Flow Rate 2 12/24/23 03:20 BMI result Body Mass Index 18.5 Const: Other: General: AO X 3, no acute distress Resp: CTA bilateral CVS: S1,S2,RRR GI: +BS, NT, no distention Skin: No rash Neuro: motor grossly intact Psych: appropriate affect Objective Data Active Medications Acetaminophen (Acetaminophen Supp 650 Mg Supp.Rect) 650 mg [place] Q4H PRN PRN Reason: fever, h/a, mild pain Last Admin: 12/19/23 14:52 Dose: 650 mg Documented By: RAUL Al Hydroxide/Mg Hydroxide (Magnesium Hydrox/Alum Hydrox 30 Ml Oral.Susp) 30 ml PO Q6H PRN PRN Reason: Heartburn/Nausea Amlodipine Besylate (Amlodipine Besylate 10 Mg Tablet) 10 mg PO DAILY [facility]; Protocol Last Admin: 01/19/24 09:11 Dose: 10 mg Documented By: LIZABETH Aspirin (Aspirin 81 Mg Tab.Chew) 81 mg PO DAILY [facility] Last Admin: 01/19/24 09:11 Dose: 81 mg Documented By: LIZABETH Atorvastatin Calcium (Atorvastatin Calcium 20 Mg Tablet) 20 mg PO BEDTIME [facility] Last Admin: 01/18/24 20:45 Dose: 20 mg Documented By: GREGG Bethanechol Chloride (Bethanechol Chloride 25 Mg Tablet) 25 mg PO TID [facility] Last Admin: 01/19/24 09:11 Dose: 25 mg Documented By: LIZABETH Calcium Carbonate (Calcium Carbonate 750 Mg Tab.Chew) 750 mg PO Q4H PRN PRN Reason: Heartburn Clopidogrel Bisulfate (Clopidogrel Bisulfate 75 Mg Tablet) 75 mg PO DAILY [facility] Last Admin: 01/19/24 09:11 Dose: 75 mg Documented By: LIZABETH Finasteride (Finasteride 5 Mg Tablet) 5 mg PO DAILY [facility] Last Admin: 01/19/24 09:11 Dose: 5 mg Documented By: LIZABETH Haloperidol (Haloperidol 1 Mg Tablet) 2 mg PO Q6H PRN PRN Reason: agitation Last Admin: 01/14/24 04:24 Dose: 2 mg Documented By: LUKASZ Heparin Sodium (Porcine) (Heparin Sodium,Porcine 5,000 Unit/Ml Vial) 5,000 unit SUBCUT Q12H [facility] Last Admin: 01/19/24 08:56 Dose: 5,000 unit Documented By: LIZABETH Hydralazine HCl (Hydralazine Hcl 10 Mg Tablet) 10 mg PO BID [facility]; Protocol Last Admin: 01/19/24 09:10 Dose: 10 mg Documented By: LIZABETH Magnesium Hydroxide (Milk Of Magnesia 30 Ml Oral.Susp) 30 ml PO DAILY PRN PRN Reason: Constipation Melatonin (Melatonin 3 Mg Tablet) 6 mg PO BEDTIME PRN PRN Reason: Insomnia Last Admin: 01/17/24 20:53 Dose: 6 mg Documented By: DARIEN Metoprolol Succinate (Metoprolol Succinate Er 100 Mg Tab.Er.24h) 100 mg PO DAILY [facility]; Protocol Last Admin: 01/19/24 09:10 Dose: 100 mg Documented By: LIZABETH Pantoprazole Sodium (Pantoprazole Sodium 20 Mg Tablet.Dr) 20 mg PO DAILY@0630 [facility] Last Admin: 01/19/24 05:40 Dose: 20 mg Documented By: GREGG Phenytoin (Phenytoin Oral Susp 100 Mg/4 Ml Oral.Susp) 100 mg PO TID [facility] Last Admin: 01/19/24 08:58 Dose: 100 mg Documented By: LIZABETH Sodium Chloride (0.9 % Sodium Chloride Flush 3 Ml Syringe) 3 ml IVFLUSH QSHIFT [facility] Last Admin: 01/19/24 09:14 Dose: Not Given Documented By: LIZABETH Non-Admin Reason: Patient Refused Tamsulosin HCl (Tamsulosin Hcl 0.4 Mg Capsule) 0.8 mg PO BEDTIME [facility] Last Admin: 01/18/24 20:45 Dose: 0.8 mg Documented By: GREGG Vancomycin HCl (Vancomycin Hcl 125 Mg Capsule) 125 mg PO Q6H [facility] Last Admin: 01/19/24 05:40 Dose: 125 mg Documented By: GREGG Labs 01/18/24 08:18 01/18/24 08:18 Assessment and Plan (1) Major neurocognitive disorder due to another medical condition with behavioral disturbance: Status: Acute Plan 83/F mood disorder, seizure disorder, HTN, HLD, carotid stenosis on DAPT admitted from Psych d/t aspiration PNA, after d/c to Psych following management for encephalopathy related to seizure C dif--continue PO Vanco started 01/04, ends 01/17 (14 days) UTI-d/t e.coli, completed treatment with Ceftriaxone unspecified dementia with behavioral disturbance -Haldol per Psych recommendation, hasn't received a dose since 01/13 -psychiatry following -lacks capacity to make decision -HCP invoked () Aspiration pneumonia--has completed treatment with Zosyn and Augmentin 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 Add hydralzine 10 bid carotid stenosis-continue aspirin/Plavix urinary retention, chronic, did [facility]ization [facility] -failed multiple voiding trials, uro rec keeping adames in and outpatient voiding trial, but since still here would like to try -continue flomax, proscar, bethanchol left side scalp lesion -no erythema or discharge consider outpatient management . resolved issues Acute metabolic encephalopathy d/t aspiration--resolved -eeg 12/20, no seizure -now alert and oriented x 3 -according to he has been declining since beginning of the year chronic constipation -bowel regimen hematuria--resolved. DVT prophylaxis-heparin, no, compression device, out of bed and ambulate Full code need for inpt: encephalopathy as above, needs placement awaiting safe disposition Quality Stroke Does the patient have a stroke diagnosis?: No VTE Prior VTE?: No VTE Risk Level:: Medical - moderate - high VTE Device Contraindication: Treatment Not Indicated VTE Drug Contraindication: N/A - Med Ordered
[2024-01-19 15:17] VITALS: BP 165/74; PULSE 58; RESP 17; TEMP 37.1; O2SAT 97
[2024-01-19 20:00] VITALS: BP 141/74; PULSE 58; RESP 16; TEMP 37.2; O2SAT 96
[2024-01-19] MEDS: Atorvastatin Calcium 20 MG TABLET PO (20:10)
[2024-01-19] MEDS: Tamsulosin HCL 0.4 MG CAPSULE 0.8 MG PO (20:10)
[2024-01-20] MEDS: vancomycin HCL 125 MG CAPSULE PO ×2 (00:02→05:37)
[2024-01-20 03:26] VITALS: BP 146/71; PULSE 53; RESP 17; TEMP 36.8; O2SAT 94
[2024-01-20] MEDS: Pantoprazole Sodium 20 MG TABLET.DR PO (05:37)
[2024-01-20 06:43] VITALS: BP 152/74; PULSE 58; RESP 17; TEMP 36.6; O2SAT 97
[2024-01-20] MEDS: Phenytoin Oral Susp 100 MG/4 ML ORAL.SUSP PO ×3 (09:00→20:05)
[2024-01-20] MEDS: Bethanechol Chloride 25 MG TABLET PO ×3 (09:00→20:06)
[2024-01-20] MEDS: Metoprolol Succinate ER 100 MG TAB.ER.24H PO (09:01)
[2024-01-20] MEDS: Clopidogrel Bisulfate 75 MG TABLET PO (09:01)
[2024-01-20] MEDS: amLODIPine Besylate 10 MG TABLET PO (09:01)
[2024-01-20] MEDS: Aspirin 81 MG TAB.CHEW PO (09:01)
[2024-01-20] MEDS: Heparin Sodium,Porcine 5,000 UNIT/ML VIAL 5000 UNIT SUBCUT ×2 (09:02→20:06)
[2024-01-20] MEDS: hydrALAZINE HCl 10 MG TABLET PO ×2 (09:02→20:05)
[2024-01-20] MEDS: Finasteride 5 MG TABLET PO (09:02)
--- NOTE | 2024-01-20 10:36 | HO.PM.IMPN ---
Subjective Subjective Date of Service: 01/20/24 Interval History: Doing well, no new issues Still want adames out Physical Exam Vital Signs: Vital Signs: Last Vital Signs Temp 98 F 01/20/24 06:43 Pulse 58 01/20/24 06:43 Resp 17 01/20/24 06:43 BP 152/74 H 01/20/24 06:43 Pulse Ox 97 01/20/24 06:43 O2 Del Method Room Air 01/20/24 06:43 O2 Flow Rate 2 12/24/23 03:20 BMI result Body Mass Index 18.5 Const: Other: General: AO X 3, no acute distress Resp: CTA bilateral CVS: S1,S2,RRR GI: +BS, NT, no distention Skin: No rash Neuro: motor grossly intact Psych: appropriate affect Objective Data Active Medications Acetaminophen (Acetaminophen Supp 650 Mg Supp.Rect) 650 mg [place] Q4H PRN PRN Reason: fever, h/a, mild pain Last Admin: 12/19/23 14:52 Dose: 650 mg Documented By: RAUL Al Hydroxide/Mg Hydroxide (Magnesium Hydrox/Alum Hydrox 30 Ml Oral.Susp) 30 ml PO Q6H PRN PRN Reason: Heartburn/Nausea Amlodipine Besylate (Amlodipine Besylate 10 Mg Tablet) 10 mg PO DAILY [facility]; Protocol Last Admin: 01/20/24 09:01 Dose: 10 mg Documented By: LIZABETH Aspirin (Aspirin 81 Mg Tab.Chew) 81 mg PO DAILY [facility] Last Admin: 01/20/24 09:01 Dose: 81 mg Documented By: LIZABETH Atorvastatin Calcium (Atorvastatin Calcium 20 Mg Tablet) 20 mg PO BEDTIME [facility] Last Admin: 01/19/24 20:10 Dose: 20 mg Documented By: GREGG Bethanechol Chloride (Bethanechol Chloride 25 Mg Tablet) 25 mg PO TID [facility] Last Admin: 01/20/24 09:00 Dose: 25 mg Documented By: LIZABETH Calcium Carbonate (Calcium Carbonate 750 Mg Tab.Chew) 750 mg PO Q4H PRN PRN Reason: Heartburn Clopidogrel Bisulfate (Clopidogrel Bisulfate 75 Mg Tablet) 75 mg PO DAILY [facility] Last Admin: 01/20/24 09:01 Dose: 75 mg Documented By: LIZABETH Finasteride (Finasteride 5 Mg Tablet) 5 mg PO DAILY [facility] Last Admin: 01/20/24 09:02 Dose: 5 mg Documented By: LIZABETH Haloperidol (Haloperidol 1 Mg Tablet) 2 mg PO Q6H PRN PRN Reason: agitation Last Admin: 01/14/24 04:24 Dose: 2 mg Documented By: LUKASZ Heparin Sodium (Porcine) (Heparin Sodium,Porcine 5,000 Unit/Ml Vial) 5,000 unit SUBCUT Q12H [facility] Last Admin: 01/20/24 09:02 Dose: 5,000 unit Documented By: LIZABETH Hydralazine HCl (Hydralazine Hcl 10 Mg Tablet) 10 mg PO BID [facility]; Protocol Last Admin: 01/20/24 09:02 Dose: 10 mg Documented By: LIZABETH Magnesium Hydroxide (Milk Of Magnesia 30 Ml Oral.Susp) 30 ml PO DAILY PRN PRN Reason: Constipation Melatonin (Melatonin 3 Mg Tablet) 6 mg PO BEDTIME PRN PRN Reason: Insomnia Last Admin: 01/17/24 20:53 Dose: 6 mg Documented By: DARIEN Metoprolol Succinate (Metoprolol Succinate Er 100 Mg Tab.Er.24h) 100 mg PO DAILY [facility]; Protocol Last Admin: 01/20/24 09:01 Dose: 100 mg Documented By: LIZABETH Pantoprazole Sodium (Pantoprazole Sodium 20 Mg Tablet.Dr) 20 mg PO DAILY@0630 [facility] Last Admin: 01/20/24 05:37 Dose: 20 mg Documented By: GREGG Phenytoin (Phenytoin Oral Susp 100 Mg/4 Ml Oral.Susp) 100 mg PO TID [facility] Last Admin: 01/20/24 09:00 Dose: 100 mg Documented By: LIZABETH Sodium Chloride (0.9 % Sodium Chloride Flush 3 Ml Syringe) 3 ml IVFLUSH QSHIFT [facility] Last Admin: 01/20/24 09:12 Dose: Not Given Documented By: LIZABETH Non-Admin Reason: no access Tamsulosin HCl (Tamsulosin Hcl 0.4 Mg Capsule) 0.8 mg PO BEDTIME [facility] Last Admin: 01/19/24 20:10 Dose: 0.8 mg Documented By: GREGG Vancomycin HCl (Vancomycin Hcl 125 Mg Capsule) 125 mg PO Q6H [facility] Last Admin: 01/20/24 05:37 Dose: 125 mg Documented By: HO.ODRISM Labs 01/18/24 08:18 01/18/24 08:18 Assessment and Plan (1) Major neurocognitive disorder due to another medical condition with behavioral disturbance: Status: Acute Plan 83/F mood disorder, seizure disorder, HTN, HLD, carotid stenosis on DAPT admitted from Psych d/t aspiration PNA, after d/c to Psych following management for encephalopathy related to seizure C dif--continue PO Vanco started 01/04, completed 14 days, no diarrhea UTI-d/t e.coli, completed treatment with Ceftriaxone unspecified dementia with behavioral disturbance -Haldol per Psych recommendation, hasn't received a dose since 01/13 -psychiatry following -lacks capacity to make decision -HCP invoked () Aspiration pneumonia--has completed treatment with Zosyn and Augmentin 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 Add hydralzine 10 bid carotid stenosis-continue aspirin/Plavix urinary retention, chronic, did self-catheterization at [facility] -failed multiple voiding trials, uro rec keeping adames in and outpatient voiding trial, but since still here would like to try -continue flomax, proscar, bethanchol left side scalp lesion -no erythema or discharge consider outpatient management . resolved issues Acute metabolic encephalopathy d/t aspiration--resolved -eeg 12/20, no seizure -now alert and oriented x 3 -according to he has been declining since beginning of the year chronic constipation -bowel regimen hematuria--resolved. DVT prophylaxis-heparin, no, compression device, out of bed and ambulate Full code need for inpt: encephalopathy as above, needs placement awaiting safe disposition Quality Stroke Does the patient have a stroke diagnosis?: No VTE Prior VTE?: No VTE Risk Level:: Medical - moderate - high VTE Device Contraindication: Treatment Not Indicated VTE Drug Contraindication: N/A - Med Ordered
[2024-01-20 15:17] VITALS: BP 136/64; PULSE 52; RESP 16; TEMP 36.9; O2SAT 96
[2024-01-20 19:48] VITALS: BP 154/74; PULSE 54; RESP 20; TEMP 36.8; O2SAT 95
[2024-01-20 20:05] VITALS: BP 154/74
[2024-01-20] MEDS: Atorvastatin Calcium 20 MG TABLET PO (20:06)
[2024-01-20] MEDS: Tamsulosin HCL 0.4 MG CAPSULE 0.8 MG PO (20:06)
[2024-01-21] VITALS (7 sets, daily range): BP systolic 142–181; BP diastolic 69–80; PULSE 50–57; RESP 16–18; TEMP 36.8–37; O2SAT 92–97
[2024-01-21] MEDS: Pantoprazole Sodium 20 MG TABLET.DR PO (06:23)
[2024-01-21] MEDS: Finasteride 5 MG TABLET PO (07:56)
[2024-01-21] MEDS: Phenytoin Oral Susp 100 MG/4 ML ORAL.SUSP PO ×3 (07:56→20:24)
[2024-01-21] MEDS: hydrALAZINE HCl 10 MG TABLET PO ×2 (07:56→20:21)
[2024-01-21] MEDS: Metoprolol Succinate ER 100 MG TAB.ER.24H PO (07:56)
[2024-01-21] MEDS: Heparin Sodium,Porcine 5,000 UNIT/ML VIAL 5000 UNIT SUBCUT ×2 (07:56→20:21)
[2024-01-21] MEDS: Aspirin 81 MG TAB.CHEW PO (07:57)
[2024-01-21] MEDS: Clopidogrel Bisulfate 75 MG TABLET PO (07:57)
[2024-01-21] MEDS: amLODIPine Besylate 10 MG TABLET PO (07:57)
[2024-01-21] MEDS: Bethanechol Chloride 25 MG TABLET PO ×3 (07:57→20:21)
--- NOTE | 2024-01-21 10:10 | MHC.CM.PN ---
CURRENT PLAN IS FOR PT TO DC TO [facility] TOMORROW VIA BLS
--- NOTE | 2024-01-21 11:13 | PM.DS ---
DS: Providers Provider Date of admission: 12/18/23 18:31 Primary care physician: Winifred Dorsey MD Consults: 12/18/23 18:44 Consult to Neurology Routine Consulting Provider: [facility] Reason for consultation: concern for breakthrough sz with med changes 12/21/23 09:07 Consult to Psychiatry Routine Consulting Provider: [facility] Reason for consultation: dementia with behavior issues 12/27/23 07:55 Consult to Care Team Routine Comment: Reason for consultation: med clear Has provider been notified: No 12/28/23 15:41 Consult to Urology Routine Consulting Provider: [facility] Reason for consultation: hematuria /urinary retention Has provider been notified: No DS: Diagnosis Discharge Diagnosis (1) Major neurocognitive disorder due to another medical condition with behavioral disturbance: Status: Acute Physical Exam Vital Signs: Vital Signs: Last Vital Signs Temp 98.6 F 01/21/24 07:07 Pulse 57 01/21/24 07:07 Resp 16 01/21/24 07:07 BP 181/80 H 01/21/24 07:56 Pulse Ox 94 01/21/24 07:07 O2 Del Method Room Air 01/21/24 07:07 O2 Flow Rate 2 12/24/23 03:20 BMI result Body Mass Index 18.5 Discharge Plan Discharge Referrals: Physician,Unknown J [Physician] - 1 Week Discharge Medications: No Action acetaminophen 325 mg Tablet 650 mg PO Q6H PRN (Reason: Headache/Pain Mild Scale (1-3)) Qty: 30 0RF atorvastatin 20 mg Tablet 20 mg PO BEDTIME Qty: 30 0RF clopidogrel 75 mg Tablet 75 mg PO DAILY Qty: 30 0RF lamotrigine 25 mg Tablet 25 mg PO BEDTIME Qty: 30 0RF bethanechol chloride 25 mg Tablet 25 mg PO TID 30 Days Qty: 90 0RF magnesium hydroxide [Milk of Magnesia] 400 mg/5 mL Suspension 30 ml PO DAILY PRN (Reason: Constipation) 20 Days Qty: 20 0RF tamsulosin 0.4 mg Capsule 0.4 mg PO BEDTIME Qty: 30 0RF amlodipine 10 mg Tablet 10 mg PO DAILY Qty: 30 0RF Protocol: Hold for SBP< HOLD for SBP < : 90 mirtazapine 30 mg Tablet 30 mg PO BEDTIME Qty: 30 0RF olanzapine 10 mg Tablet,Disintegrating 10 mg translingual DAILY@1800 Qty: 20 0RF olanzapine 10 mg Tablet,Disintegrating 5 mg translingual BID PRN (Reason: agitation) Qty: 20 0RF aspirin 81 mg Tablet,Chewable 81 mg PO DAILY Qty: 20 0RF finasteride 5 mg Tablet 5 mg PO DAILY 30 Days Qty: 30 0RF MAG-AL 200-200 mg/5 mL Suspension 30 ml PO Q6H PRN (Reason: Heartburn/Nausea) 30 Days Qty: 99 0RF lactulose 20 gram/30 mL Solution 20 g PO BID Qty: 30 0RF Print Language: Belarusian
--- NOTE | 2024-01-21 11:15 | HO.PM.IMPN ---
Subjective Subjective Date of Service: 01/22/24 Interval History: Has no new issues, still requesting adames to be removed and to be straight cath as before Physical Exam Vital Signs: Vital Signs: Last Vital Signs Temp 98.6 F 01/21/24 07:07 Pulse 57 01/21/24 07:07 Resp 16 01/21/24 07:07 BP 181/80 H 01/21/24 07:56 Pulse Ox 94 01/21/24 07:07 O2 Del Method Room Air 01/21/24 07:07 O2 Flow Rate 2 12/24/23 03:20 BMI result Body Mass Index 18.5 Objective Data Active Medications Acetaminophen (Acetaminophen Supp 650 Mg Supp.Rect) [address] Q4H PRN PRN Reason: fever, h/a, mild pain Last Admin: 12/19/23 14:52 Dose: 650 mg Documented By: RAUL Al Hydroxide/Mg Hydroxide (Magnesium Hydrox/Alum Hydrox 30 Ml Oral.Susp) 30 ml PO Q6H PRN PRN Reason: Heartburn/Nausea Amlodipine Besylate (Amlodipine Besylate 10 Mg Tablet) 10 mg PO DAILY [facility]; Protocol Last Admin: 01/21/24 07:57 Dose: 10 mg Documented By: ZAIDA Aspirin (Aspirin 81 Mg Tab.Chew) 81 mg PO DAILY [facility] Last Admin: 01/21/24 07:57 Dose: 81 mg Documented By: ZAIDA Atorvastatin Calcium (Atorvastatin Calcium 20 Mg Tablet) 20 mg PO BEDTIME [facility] Last Admin: 01/20/24 20:06 Dose: 20 mg Documented By: RACHEL Bethanechol Chloride (Bethanechol Chloride 25 Mg Tablet) 25 mg PO TID [facility] Last Admin: 01/21/24 07:57 Dose: 25 mg Documented By: ZAIDA Calcium Carbonate (Calcium Carbonate 750 Mg Tab.Chew) 750 mg PO Q4H PRN PRN Reason: Heartburn Clopidogrel Bisulfate (Clopidogrel Bisulfate 75 Mg Tablet) 75 mg PO DAILY [facility] Last Admin: 01/21/24 07:57 Dose: 75 mg Documented By: ZAIDA Finasteride (Finasteride 5 Mg Tablet) 5 mg PO DAILY [facility] Last Admin: 01/21/24 07:56 Dose: 5 mg Documented By: ZAIDA Haloperidol (Haloperidol 1 Mg Tablet) 2 mg PO Q6H PRN PRN Reason: agitation Last Admin: 01/14/24 04:24 Dose: 2 mg Documented By: LUKASZ Heparin Sodium (Porcine) (Heparin Sodium,Porcine 5,000 Unit/Ml Vial) 5,000 unit SUBCUT Q12H [facility] Last Admin: 01/21/24 07:56 Dose: 5,000 unit Documented By: ZAIDA Hydralazine HCl (Hydralazine Hcl 10 Mg Tablet) 10 mg PO BID [facility]; Protocol Last Admin: 01/21/24 07:56 Dose: 10 mg Documented By: ZAIDA Magnesium Hydroxide (Milk Of Magnesia 30 Ml Oral.Susp) 30 ml PO DAILY PRN PRN Reason: Constipation Melatonin (Melatonin 3 Mg Tablet) 6 mg PO BEDTIME PRN PRN Reason: Insomnia Last Admin: 01/17/24 20:53 Dose: 6 mg Documented By: DARIEN Metoprolol Succinate (Metoprolol Succinate Er 100 Mg Tab.Er.24h) 100 mg PO DAILY [facility]; Protocol Last Admin: 01/21/24 07:56 Dose: 100 mg Documented By: ZAIDA Pantoprazole Sodium (Pantoprazole Sodium 20 Mg Tablet.Dr) 20 mg PO DAILY@0630 [facility] Last Admin: 01/21/24 06:23 Dose: 20 mg Documented By: RACHEL Phenytoin (Phenytoin Oral Susp 100 Mg/4 Ml Oral.Susp) 100 mg PO TID [facility] Last Admin: 01/21/24 07:56 Dose: 100 mg Documented By: ZAIDA Sodium Chloride (0.9 % Sodium Chloride Flush 3 Ml Syringe) 3 ml IVFLUSH QSHIFT [facility] Last Admin: 01/21/24 08:03 Dose: Not Given Documented By: ZAIDA Non-Admin Reason: No Access Tamsulosin HCl (Tamsulosin Hcl 0.4 Mg Capsule) 0.8 mg PO BEDTIME [facility] Last Admin: 01/20/24 20:06 Dose: 0.8 mg Documented By: RACHEL Labs 01/18/24 08:18 01/18/24 08:18 Assessment and Plan (1) Major neurocognitive disorder due to another medical condition with behavioral disturbance: Status: Acute Plan 83/F mood disorder, seizure disorder, HTN, HLD, carotid stenosis on DAPT admitted from Psych d/t aspiration PNA, UTi after d/c to Psych following management for encephalopathy related to seizure.. He has completed treatment for aspiration and has no further symptoms. He acquired CDdif with diarrhea and leukocysosis and has complated treatment with PO Vanco x 14 with no further diarrhea, and WBC has normalized. His deliriurm which is likely multifactorial has resolved yet deemed to have no capacity and therefore HCP invoked and being decision maker. 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 resolved issues Acute metabolic encephalopathy d/t aspiration--resolved -eeg 12/20, no seizure -now alert and oriented x 3 -according to he has been declining since beginning of the year chronic constipation -bowel regimen hematuria--resolved. DVT prophylaxis-heparin, no, compression device, out of bed and ambulate Full code need for inpt: encephalopathy as above, needs placement awaiting safe disposition Quality Stroke Does the patient have a stroke diagnosis?: No VTE Prior VTE?: No VTE Risk Level:: Medical - moderate - high VTE Device Contraindication: Treatment Not Indicated VTE Drug Contraindication: N/A - Med Ordered
--- NOTE | 2024-01-21 11:42 | MHC.CM.PN ---
Addendum entered by Mary Yusuf 01/21/24 12:05: EVERETT SPOKE TO PTS WHO REPORTS SHE IS MEETING WITH [facility] THIS AFTERNOON SHE REPORTS SHE WILL BE PROVIDING PTS TRANSPORT AND EXPECTS IT WILL BE BETWEEN 1400 AND 1500 HOURS TOMORROW SHE WILL CALL TO CONFIRM ELEVATOR EXAMINER TIME AFTER MEETING WITH [facility] Original Note: EVERETT SPOKE TO JUANITO AT [facility] SHE CONFIRMS THEY WILL ACCEPT PT TOMORROW SHE REPORTS SHE IS MEETING WITH PTS TODAY AT 1400 HOURS AND WILL CONFIRM PLANS SHE SAYS THE PTS PLANS TO TRANSPORT PT AND IT WILL LIKELY BE LATE AFTERNOON
--- NOTE | 2024-01-21 19:27 | PC.NURSE ---
EMMANUEL REMOVED @ 1300. PT WITH HISTORY OF SELF CATHS FOR RETENTION. ORDERS FOR STRAIGHT CATHS QSHIFT. BLADDER SCANNED AT 1730 FOR 20CC.
[2024-01-21] MEDS: Tamsulosin HCL 0.4 MG CAPSULE 0.8 MG PO (20:21)
[2024-01-21] MEDS: Atorvastatin Calcium 20 MG TABLET PO (20:21)
[2024-01-22 03:25] VITALS: BP 150/66; PULSE 55; RESP 18; TEMP 36.7; O2SAT 94
[2024-01-22] MEDS: Pantoprazole Sodium 20 MG TABLET.DR PO (06:04)
--- NOTE | 2024-01-22 06:35 | PC.NURSE ---
2114-PATIENT AMBULATED TO THE BATHROOM WITH WALKER AND CLOSE SUPERVISION, ABLE TO VOID AND BLADDER SCAN REVEALED 40ML PVR. NO ACTION TAKEN AT THIS TIME. PT ABLE TO VOID AGAIN CLOSE TO 0100, DENIED PAIN OR BLADDER PRESSURE. SUPERVISED TO BR AT 0610, VOIDED, AND PVR =62ML, AGAIN NO ST CATH NEEDED AT THIS TIME, WILL CONTINUE TO MONITOR.
--- NOTE | 2024-01-22 07:46 | PM.DS ---
DS: Providers Provider Date of Service: 01/22/24 Date of admission: 12/18/23 18:31 Primary care physician: Winifred Dorsey MD Consults: 12/18/23 18:44 Consult to Neurology Routine Consulting Provider: [facility] Reason for consultation: concern for breakthrough sz with med changes 12/21/23 09:07 Consult to Psychiatry Routine Consulting Provider: Psych [facility] Reason for consultation: dementia with behavior issues 12/27/23 07:55 Consult to Care Team Routine Comment: Reason for consultation: med clear Has provider been notified: No 12/28/23 15:41 Consult to Urology Routine Consulting Provider: [facility] Reason for consultation: hematuria /urinary retention Has provider been notified: No DS: Diagnosis Discharge Diagnosis (1) Major neurocognitive disorder due to another medical condition with behavioral disturbance: Status: Acute DS: Summary Hospital Course Hospital Course: admission hpi Chief Complaint: aspiration 83-year-old male with pertinent history of mood disorder, seizure disorder, hypertension, mixed hyperlipidemia, carotid stenosis on DAPT initially admitted to hospitalist service due to acute encephalopathy thought to be secondary to breakthrough partial seizure from [facility]. Was ultimately discharged to Geriatric Psychiatry with increased dose of Keppra which was ultimately discontinued due to increased agitation and patient was started on Depakote 500 mg b.i.d. without any further seizure activity. Ultimately depakote was discontinued due to elevated ammonia level (77) and was then started on lamictal (12/15). Ammonia on day of admission WNL. Mentation had improved on Geriatric Psychiatry, however earlier today, psychiatrist noted increased delirium, patient nonverbal, slightly tremulous, and less responsive. Per nursing report, patient has been aspirating on thin liquids and some thickened liquids over the last few days but was not made NPO. MAJOR CASE DETECTIVE was consulted but has been unable to evaluate patient due to patient not cooperating with evaluation purulent this morning was found to be febrile up to 100.9, vital signs otherwise stable. There was no leukocytosis. Urinalysis evaluated which was not indicative of infection. Chest x-ray unremarkable. Negative for COVID-19, RSV, influenza. There was no hypoxia. Given concerns for evolving aspiration pneumonia given fevers and witnessed aspiration, initial plan to start patient on empiric Augmentin but given he was not willing to participate in MAJOR CASE DETECTIVE evaluation and therefore could not be safely continued on p.o., will be transferred to medicine for IV antibiotics and IV fluids given NPO status. Hospital course: 83/F with a history of mood disorder, seizure disorder, hypertension (HTN), hyperlipidemia (HLD), and carotid stenosis on dual antiplatelet therapy (DAPT) initially presented to the hospital on December 04 from [facility], where she had been treated for mood disorder and suicidal/homicidal ideation. She became encephalopathic and was transferred to the hospital, where she was treated for encephalopathy believed to be related to a breakthrough seizure. She was discharged to inpatient geriatric psychiatry at [facility] on December 06. On December 18, 2023, she became confused and encephalopathic again and was admitted to the medical floor for management of encephalopathy, aspiration pneumonia, urinary tract infection (UTI), and seizure. Her hospital course was further complicated by Clostridium difficile (C. diff) diarrhea while waiting for placement. The hospital stay has been lengthy, primarily due to placement issues. In the interim, her encephalopathy and confusion have resolved, and she has no suicidal or homicidal ideation. She has completed antibiotic treatment for aspiration pneumonia and UTI, and currently shows no signs or symptoms of infection. Her white blood cell (WBC) count is normal, and she is afebrile. She has completed a 14-day course of oral vancomycin for C. diff treatment and no longer has diarrhea. She has not experienced any further seizures while on Dilantin. She was previously on Depakote, which was discontinued due to elevated ammonia levels causing encephalopathy. Keppra was also trialed but was discontinued due to agitation. He previously lived with his at home but she's no longer able to care for him at home and therefore Course by problems: C dif--completed 14 days of PO Vanco, no diarrhea, wbc nl, no fever UTI-d/t e.coli, completed treatment with Ceftriaxone unspecified dementia with behavioral disturbance -Was on PRN haldol for agitation but has not required this -psychiatry followed and helped with med management -lacks capacity to make decision -HCP invoked () Aspiration pneumonia--has completed treatment with Zosyn and Augmentin Speech language Pathology (MAJOR CASE DETECTIVE) recommennds NDD3, thin liquid Acute metabolic encephalopathy d/t aspiration, uti -eeg 12/20, no seizure -now alert and oriented x 3 -according to he has been declining since beginning of the year Partial seizure disorder -continue Dilantin 100 tid -Avoid keppra d/t agitation, depakote caused high ammonia and encephalopathy HTN-- -continue toprolol 100, norvasc 10, hydralzine 10 bid carotid stenosis-continue aspirin/Plavix urinary retention, chronic. did self-catheterization at home. He had adames for a while but he prefered to have self catherization which he is able to do. Continue -continue flomax, proscar, bethanchol left side scalp lesion -no erythema or discharge consider outpatient management . resolved issues r chronic constipation -bowel regimen hematuria--resolved. Time Attestation Discharge Coordination Time (in mins): 45 Quality: Safe Use of Opioids Does Pt have an Active Cancer Diagnosis on the Problem List?: No Quality: Stroke Does the patient have a stroke diagnosis?: No Physical Exam Vital Signs: Vital Signs: Last Vital Signs Temp 98.0 F 01/22/24 03:25 Pulse 55 01/22/24 03:25 Resp 18 01/22/24 03:25 BP 150/66 H 01/22/24 03:25 Pulse Ox 94 01/22/24 03:25 O2 Del Method Room Air 01/22/24 03:25 O2 Flow Rate 2 12/24/23 03:20 BMI result Body Mass Index 18.5 General: AO X 3, no acute distress Resp: CTA bilateral CVS: S1,S2,RRR GI: +BS, NT, no distention Skin: No rash Neuro: motor grossly intact Psych: appropriate affect Discharge Plan Discharge Anticipated Discharge Date/Time: 01/22/24 07:52 Patient Disposition: er SNF Discharge Diagnosis: Encephalopathy, aspiration pneumonia, Cdif, seizure d/o Referrals: [facility] [place] [facility] [Other] - 1 Week Physician,Unknown J [Physician] - 1 Week Discharge Medications: New hydralazine 10 mg Tablet 10 mg PO BID Qty: 60 0RF Protocol: Hold for SBP< HOLD for SBP < : 90 metoprolol succinate 100 mg Tablet Extended Release 24 Hr 100 mg PO DAILY Qty: 60 0RF Protocol: Hold for SBP/HR < HOLD for SBP < : 90 HOLD for HR < : 60 phenytoin 100 mg/4 mL Suspension 100 mg PO TID Qty: 200 0RF pantoprazole 20 mg Tablet,Delayed Release (Dr/Ec) 20 mg PO DAILY@0630 Qty: 30 0RF Continued acetaminophen 325 mg Tablet 650 mg PO Q6H PRN (Reason: Headache/Pain Mild Scale (1-3)) Qty: 30 0RF atorvastatin 20 mg Tablet 20 mg PO BEDTIME Qty: 30 0RF clopidogrel 75 mg Tablet 75 mg PO DAILY Qty: 30 0RF bethanechol chloride 25 mg Tablet 25 mg PO TID 30 Days Qty: 90 0RF magnesium hydroxide [Milk of Magnesia] 400 mg/5 mL Suspension 30 ml PO DAILY PRN (Reason: Constipation) 20 Days Qty: 20 0RF amlodipine 10 mg Tablet 10 mg PO DAILY Qty: 30 0RF Protocol: Hold for SBP< HOLD for SBP < : 90 aspirin 81 mg Tablet,Chewable 81 mg PO DAILY Qty: 20 0RF finasteride 5 mg Tablet 5 mg PO DAILY 30 Days Qty: 30 0RF MAG-AL 200-200 mg/5 mL Suspension 30 ml PO Q6H PRN (Reason: Heartburn/Nausea) 30 Days Qty: 99 0RF Changed tamsulosin 0.4 mg Capsule 0.8 mg PO BEDTIME Qty: 30 0RF Discontinued lamotrigine 25 mg Tablet 25 mg PO BEDTIME Qty: 30 0RF mirtazapine 30 mg Tablet 30 mg PO BEDTIME Qty: 30 0RF olanzapine 10 mg Tablet,Disintegrating 10 mg translingual DAILY@1800 Qty: 20 0RF olanzapine 10 mg Tablet,Disintegrating 5 mg translingual BID PRN (Reason: agitation) Qty: 20 0RF lactulose 20 gram/30 mL Solution 20 g PO BID Qty: 30 0RF Discharge Orders: Discharge Order (Routine); Ordered 01/22/24 Ordered By: Anjel Sinha Diet: Advance to usual diet Activity on Discharge: As tolerated Stand Alone Forms: Patient Portal Discharge page Print Language: Tajik Care Plan Goals: recovery from encephalopathy, delirium, Pneumonia, C dif and generalized deconditioned Health Concerns: generalized weakness, decondition, encephalopathy, resolved cdif resolved Plan of Treatment: To rehab Assessment: see above
[2024-01-22 07:49] VITALS: BP 150/79; PULSE 56; RESP 16; TEMP 36.3; O2SAT 95
[2024-01-22] MEDS: Metoprolol Succinate ER 100 MG TAB.ER.24H PO (10:15)
[2024-01-22] MEDS: amLODIPine Besylate 10 MG TABLET PO (10:15)
[2024-01-22] MEDS: Aspirin 81 MG TAB.CHEW PO (10:15)
[2024-01-22] MEDS: Bethanechol Chloride 25 MG TABLET PO (10:15)
[2024-01-22] MEDS: Clopidogrel Bisulfate 75 MG TABLET PO (10:15)
[2024-01-22] MEDS: hydrALAZINE HCl 10 MG TABLET PO (10:15)
[2024-01-22] MEDS: Phenytoin Oral Susp 100 MG/4 ML ORAL.SUSP PO (10:15)
[2024-01-22] MEDS: Finasteride 5 MG TABLET PO (10:15)
[2024-01-22] MEDS: Heparin Sodium,Porcine 5,000 UNIT/ML VIAL 5000 UNIT SUBCUT (10:16)
--- NOTE | 2024-01-22 11:01 | MHC.CM.PN ---
pt being dcd today to [facility] at [place] at 1:00 pt to be transported by sandra
== END 2024-01-22 14:18 | disposition skilled nursing facility (03) | DRG 177 ==
PROVIDERS: Internal Medicine; Student in an Organized Health Care Education/Training Program; Admitting Provider Physician Assistant; PCP Internal Medicine; Visit Provider Internal Medicine
DX: J69.0 Pneumonitis due to inhalation of food and vomit (principal); G93.41 Metabolic encephalopathy; F03.918 Unspecified dementia, unspecified severity, with other behavioral disturbance; G40.109 Localization-related (focal) (partial) symptomatic epilepsy and epileptic syndromes with simple partial seizures, not intractable, without status epilepticus; F05 Delirium due to known physiological condition; Z68.1 Body mass index [BMI] 19.9 or less, adult; A04.72 Enterocolitis due to Clostridium difficile, not specified as recurrent; N39.0 Urinary tract infection, site not specified; N40.1 Benign prostatic hyperplasia with lower urinary tract symptoms; N31.9 Neuromuscular dysfunction of bladder, unspecified; B96.20 Unspecified Escherichia coli [E. coli] as the cause of diseases classified elsewhere; L98.9 Disorder of the skin and subcutaneous tissue, unspecified; R31.9 Hematuria, unspecified; I65.29 Occlusion and stenosis of unspecified carotid artery; R33.8 Other retention of urine; I10 Essential (primary) hypertension; K59.09 Other constipation; E78.2 Mixed hyperlipidemia; R63.6 Underweight; Z79.02 Long term (current) use of antithrombotics/antiplatelets; Z79.82 Long term (current) use of aspirin; Z79.899 Other long term (current) drug therapy
CPT/HCPCS: 36415; 70450; 71045; 80048; 80053; 81001; 81003; 82140; 82565; 82803; 82947; 83036; 83605; 83735; 84132; 85025; 85027; 87040; 87086; 87088; 87186; 87324; 87493; 92526; 92610; 92950; 95816; 97116; 97162; 97530; C1758; J0131; J0295; J0360; J0696; J1165; J1644; J1650; J1836; J2060; J2359; J3371; J7120; S9485

== ENCOUNTER → 2023-12-18 18:31 | Outpatient (BNV) | payer MEDICARE, OTHER, SELFPAY | PROVIDERS: Admitting Provider Physician Assistant; Visit Provider Physician Assistant | DX: J69.0 Pneumonitis due to inhalation of food and vomit (principal); F02.818 Dementia in other diseases classified elsewhere, unspecified severity, with other behavioral disturbance; G93.41 Metabolic encephalopathy | CPT/HCPCS: 99223; 99231; 99232; 99239; 99499 ==

== ENCOUNTER → 2023-12-18 18:31 | Outpatient (BNV) | payer MEDICARE, OTHER, SELFPAY | PROVIDERS: Admitting Provider Physician Assistant; Visit Provider Urology | DX: N31.9 Neuromuscular dysfunction of bladder, unspecified (principal); N40.0 Benign prostatic hyperplasia without lower urinary tract symptoms | CPT/HCPCS: 99222 ==

== ENCOUNTER → 2023-12-18 18:31 | Outpatient (BNV) | payer MEDICARE, OTHER, SELFPAY | PROVIDERS: Admitting Provider Physician Assistant; Visit Provider Psychiatry & Neurology Neurology | DX: G40.909 Epilepsy, unspecified, not intractable, without status epilepticus (principal); R41.0 Disorientation, unspecified | CPT/HCPCS: 99223 ==

== ENCOUNTER → 2023-12-18 18:31 | Outpatient (BNV) | payer MEDICARE, OTHER, SELFPAY | PROVIDERS: Admitting Provider Physician Assistant; Visit Provider Social Worker | DX: F03.918 Unspecified dementia, unspecified severity, with other behavioral disturbance (principal) | CPT/HCPCS: 99232 ==